=== PATIENT | female | born 1955 | race Caucasian/White ===

== ENCOUNTER 2017-03-23 19:22 | Inpatient (IN) | payer OTHER ==
[~2017-03-23] VITALS: Ht 160 cm; Wt 62.0 kg
[~2017-03-23 19:22] MED LIST: ACET1CAP19 PO; ACLI1AER3 INH; ALBU1AER9 INH; ALTERIL PO; ASPI81TA28 PO; CALC500C70 PO; CLID5CAP23 PO; CRS20 PO; CYCL5TAB PO; DIPH-416 PO; DIPH1TAB98 PO; FAMO20TA11 PO; IMD/2 PO; METO25TA56 PO; MISCCAP80 PO; NRT/25 PO; OXGN; SOLI5TAB2 PO; SYMIN/8045 INH; ZLF/50 PO
[2017-03-23] MEDS ORDERED: SODIUM CHLORIDE 0.9% 1000ML 1,000 ML IV STA ×2 (19:45)
[2017-03-23] MEDS ORDERED: SERT25TA PO (20:06)
[2017-03-23] MEDS ORDERED: SODIUM CHLORIDE 0.9% 500ML 500 ML IV STA (20:13)
[2017-03-23] MEDS ORDERED: ALBU18002 INH (20:19)
[2017-03-23 20:22] LABS: BASO % 0.4 %; BASO ABS # 0.04 K/uL (0-0.2); COMPLETE YES; EOS % 3.1 %; HEMATOCRIT 42.3 % (37-47); IG% 0.2 %; LYMPH % 16.4 %; LYMPH ABS # 1.87 K/uL (1.2-3.4); MEAN CELL VOLUME 93.6 fL (80-100); MEAN CORPUSCULAR HGB CONC 33.1 g/dl (32-36); MEAN PLATELET VOLUME 10.5 fL (7.4-10.4); MONO % 6.9 %; PLATELET COUNT 217 K/uL (130-400); RED BLOOD COUNT 4.52 M/uL (4.2-5.4)
[2017-03-23 20:31] LABS: PROTHROMBIN TIME (PATIENT) 10.5 SECONDS (9.0-12.0)
--- NOTE | 2017-03-23 20:48 | DIAGNOSTIC IMAGING REPORT ---
RIGHT KNEE 1 OR 2 VIEWS ROUTINE CLINICAL HISTORY: Right knee pain following fall. COMPARISON: None FINDINGS: A moderate size right knee joint effusion is present. A lucency projects over the patella. This may reflect a nondisplaced patellar fracture. No additional fractures are identified. IMPRESSION: Moderate size right knee joint effusion with probable acute nondisplaced patellar fracture. Electronically signed by: Jimy Osei M.D. 03/23/2017 8:46 PM Dictated Date/Time: 03/23/2017 8:42 PM
--- NOTE | 2017-03-23 20:50 | DIAGNOSTIC IMAGING REPORT ---
CHEST ONE VIEW PORTABLE CLINICAL HISTORY: Weakness. Fall. COMPARISON STUDY: Chest radiograph August 03, [address] January 13, 2016. FINDINGS: There is no pneumothorax or pleural effusion. Cardiomediastinal silhouette is stable. Lower lung opacity with interstitial thickening is noted. Diffuse interstitial thickening within the lungs has been shown on prior exams. There is no lobar consolidation. IMPRESSION: No significant change in diffuse interstitial thickening which is likely chronic. No change in appearance of the chest. Electronically signed by: Jimy Osei M.D. 03/23/2017 8:49 PM Dictated Date/Time: 03/23/2017 8:47 PM
[2017-03-23 21:13] LABS: ALKALINE PHOSPHATASE 98 U/L (45-117); ALT/SGPT 14 U/L (12-78); AST/SGOT 24 U/L (15-37); BLOOD UREA NITROGEN 10 mg/dl (7-18); BUN/CREATININE RATIO 12.5 (10-20); CALCIUM 9.4 mg/dl (8.5-10.1); CARBON DIOXIDE 30 mmol/L (21-32); CHLORIDE 102 mmol/L (98-107); CKMB/CK RATIO 1.1 (0-3.0); CREATININE 0.79 mg/dl (0.60-1.20); GLUCOSE 92 mg/dl (70-99); MAGNESIUM 2.2 mg/dl (1.8-2.4); POTASSIUM 4.6 mmol/L (3.5-5.1); SODIUM 137 mmol/L (136-145)
--- NOTE | 2017-03-23 21:27 | DIAGNOSTIC IMAGING REPORT ---
CT OF THE HEAD WITHOUT CONTRAST CLINICAL HISTORY: Weakness. Multiple falls. COMPARISON STUDY: Head CT September 07, 2012 and MRI of the brain September 08, 2012. CT DOSE: 614.27 mGy.cm TECHNIQUE: Helical axial images of the head were obtained without IV contrast. Automated exposure control was utilized for the study. FINDINGS: No acute intracranial hemorrhage, midline shift or mass effect is present. Postoperative findings consistent with a suboccipital craniectomy are again noted. Marked dilatation of the lateral and third ventricles is similar to prior exams. An old left parietal infarct is noted. There is also encephalomalacia within the left frontal lobe. There are no findings to suggest acute dural sinus thrombosis or acute territorial infarct. There is no calvarial fracture. IMPRESSION: No acute intracranial findings. No significant change in appearance of the brain. Stable marked dilatation of the lateral and third ventricles consistent with hydrocephalus. Electronically signed by: Jimy Osei M.D. 03/23/2017 9:25 PM Dictated Date/Time: 03/23/2017 9:19 PM
[2017-03-23 21:46] LABS: URINE APPEARANCE CLEAR (CLEAR); URINE BILIRUBIN NEG (NEG); URINE COLOR YELLOW; URINE EPITHELIAL CELL AUTO >30 /lpf (0-5); URINE NITRITE POS (NEG); URINE PH 6.5 (4.5-7.5); UROBILINOGEN NEG (NEG)
[2017-03-23 21:47] LABS: MANUAL MICROSCOPIC REQUIRED? NO; REVIEW REQ? NO
[2017-03-23] MEDS ORDERED: CEFTRIAXONE SOD INJ 1 GM ADDVIAL IV STA (22:30)
[2017-03-23] MEDS ORDERED: HYDROCODONE/ACETAMOPHEN 5/325MG TAB PO STA (22:37)
[2017-03-23 23:49] LABS: ARTERIAL BLD GAS O2 SATURATION 91.1 % (90-95); ARTERIAL BLOOD GAS HCO3 28 mmol/L (19-24); ARTERIAL BLOOD GAS PO2 62 mm/Hg (80-95); ARTERIAL BLOOD GAS pH 7.41 (7.35-7.45)
[2017-03-23 23:56] LABS: ALLEN TEST POS (POS); O2 ADMINISTRATION 4 L
[2017-03-24] MEDS ORDERED: LORAZEPAM 0.5 MG TAB PO ONE (00:30)
[2017-03-24] MEDS ORDERED: ONDANSETRON INJ 2 MG/ML 2 ML VIAL IV PRN (00:30)
[2017-03-24] MEDS ORDERED: LEVALBUTEROL/IPRATROPIUM NEB INH PRN (00:30)
[2017-03-24] MEDS ORDERED: MoRPHine SULFATE 4 MG/ML 1 ML CARP\\VIAL IV PRN (00:30)
[2017-03-24] MEDS ORDERED: SODIUM CHLORIDE 0.9% 1000ML 1,000 ML IV ONE (00:30)
[2017-03-24] MEDS ORDERED: ACETAMINOPHEN 325 MG TAB PO PRN (00:30)
[2017-03-24] MEDS ORDERED: LEVALBUTEROL 1.25MG/0.5ML NEB INH PRN (01:30)
[2017-03-24] MEDS ORDERED: IPRATROPIUM BROMIDE NEB SOLN 0.02% 2.5 ML VIAL INH PRN (01:30)
[2017-03-24 01:44] VITALS: BP 144/88; PULSE 84; TEMP 36.8; Ht 160 cm; Wt 62.0 kg
[2017-03-24 01:53] VITALS: O2SAT 93
--- NOTE | 2017-03-24 02:05 | EMERGENCY ROOM VISIT NOTE ---
History Report prepared by Sary: Rashid Willingham Under the Supervision of: Dr. Serafin Dumont M.D. First contact with patient: 19:45 Chief Complaint: FALL Stated Complaint: FALLS, KNEE PAIN History of Present Illness The patient is a 61 year old female who presents to the Emergency Room with complaints of constant right knee pain beginning this morning. The patient states that this morning her knee gave out 3 times, and she fell. She reports that she has been feeling weak, short of breath, diaphoresis, edema in her right foot, and fatigue. The patient notes that she fell 8 weeks ago and fractured her left hand. She states that she typically uses a walker to ambulate on her own. The patient reports that she was going up the steps outside her house, and her knee gave out. She notes that she then fell again getting into the door, and again after she was through the door. Her states he called a neighbor to help him lift the patient up, and he called the ambulance. He notes that the other night the patient went to use the restroom, and she completely missed the toilet, even though she thought she was on the seat. The patient states that she has not talked to her PCP yet. She reports that she has a history of IBS. The patient denies history of [place], coronary artery disease, and lung problems. Pt denies LOC, headache, fevers, chills, visual changes, neck pain, chest pain, nausea, vomiting, abdominal pain, back pain, melena, hematochezia, urinary symptoms, numbness, lymphadenopathy, rash, or other complaints. Source of History: patient, family Onset: this morning Position: knee (right) Timing: constant Associated Symptoms: + diaphoresis, + SOB, + fatigue, + weakness Note: Associated symptoms: edema in her right foot Review of Systems See HPI for pertinent positives and negatives. A total of ten systems were reviewed and were otherwise negative. Past Medical & Surgical Medical Problems: (1) Anxiety (2) Chronic diarrhea (3) Chronic obstructive lung disease (4) Complicated UTI (urinary tract infection) (5) Depression (6) Dyslipidemia (7) Essential hypertension (8) H/O multiple pulmonary nodules (9) History of CVA (cerebrovascular accident) (10) Irritable colon (11) Migraine (12) Pulmonary fibrosis (13) Respiratory failure, [id number] (14) Spina bifida (15) Tobacco user (16) Urge incontinence Surgical Problems: (1) History of cataract extraction with lens replacement (2) S/P cardiac cath (3) s/p hysterectomy Family History Cancer BROTHER (lung CA) Social History Smoking Status: Former Smoker Alcohol Use: none Marital Status: Occupation Status: employed Current/Historical Medications Scheduled Tfskxsshbswjb-Foahiwvhvfouq-Fl (Isometheptene/Dichloralph 325-65-100 mg), 1 CAP PO PRN UD Aclidinium Gilmore (Tudorza Pressair), 1 PUFF INH BID Aspirin (Aspirin Ec), 81 MG PO DAILY Budesonide/Formoterol Fumarate (Symbicort 80/4.5 Inhaler), 2 PUFFS INH BID Calcium/Vitamin D (Os-Harman 500 Plus D), 1 TAB PO BID Chlordiazepoxide/Clidinium (Librax 5MG/2.5MG), 1 EA PO DAILY Famotidine (Pepcid), 20 MG PO QPM Home O2 Therapy (Oxygen), 3 LITERS NA PRN Loperamide Hcl (Imodium), 2 MG PO UD Metoprolol Tartrate (Lopressor) (Lopressor), 25 MG PO BID Nortriptyline Hcl (Pamelor), 25 MG PO QAM Probiotic Product (Probiotic), 1 CAP PO DAILY Rosuvastatin Calcium (Crestor), 20 MG PO QPM Sertraline (Zoloft), 25 MG PO DAILY Sertraline HCl (Sertraline HCl), 50 MG PO QPM Solifenacin Succinate (Vesicare), 5 MG PO QAM [Alteril], 0.5 CAP PO HS Scheduled PRN Albuterol Sulfate (Proair Respiclick), 2 PUFFS INH Q4H PRN for SOB/Wheezing Cyclobenzaprine Hcl (Flexeril), 5 MG PO TID PRN for Muscle Spasms Diphenoxylate/Atropine (Lomotil), 1 TAB PO BID PRN for Diarrhea Allergies Coded Allergies: NO KNOWN DRUG ALLERGIES (Verified Allergy, Mild, NKDA, 03/23/17) Blessing Oil (Verified Adverse Reaction, Unknown, GI UPSET, 04/07/16) Milk (Verified Adverse Reaction, Unknown, GI UPSET, 04/07/16) Physical Exam Vital Signs Date Time Temp Pulse Resp B/P (MAP) Pulse Ox O2 Delivery O2 Flow Rate FiO2 03/23/17 23:36 82 03/23/17 22:49 82 16 171/92 95 Nasal Cannula 4.0 03/23/17 21:53 81 180/97 97 Nasal Cannula 4.0 03/23/17 21:21 92 24 206/99 91 Nasal Cannula 4.0 03/23/17 19:55 Nasal Cannula 4.0 03/23/17 19:38 87 03/23/17 19:27 37.4 98 16 179/112 80 Room Air Physical Exam GENERAL: Awake, alert, well-appearing, in no distress HENT: Normocephalic, atraumatic. Oropharynx unremarkable. Dry mucus membranes. EYES: Pale conjunctiva. Sclera non-icteric. NECK: Supple. No nuchal rigidity. FROM. No JVD. RESPIRATORY: Clear to auscultation. CARDIAC: Regular rate, normal rhythm. Extremities warm and well perfused. Pulses equal. ABDOMEN: Soft, non-distended. No tenderness to palpation. No rebound or guarding. No masses. RECTAL: Deferred. MUSCULOSKELETAL: Chest examination reveals no tenderness. The back is symmetrical on inspection without obvious abnormality. There is no CVA tenderness to palpation. No joint edema. Clubbing of the fingers. LOWER EXTREMITIES: Calves are equal size bilaterally and non-tender. 2+ edema, more on the left. No discoloration. Right knee effusion - posterior is tender to palpation - ROM limited secondary to pain NEURO: Normal sensorium. No sensory or motor deficits noted. SKIN: No rash or jaundice noted. Medical Decision & Procedures ER Provider Diagnostic Interpretation: Radiology results as stated below per my review and radiologist interpretation: CT OF THE HEAD WITHOUT CONTRAST CLINICAL HISTORY: Weakness. Multiple falls. COMPARISON STUDY: Head CT September 07, 2012 and MRI of the brain September 08, 2012. CT DOSE: 614.27 mGy.cm TECHNIQUE: Helical axial images of the head were obtained without IV contrast. Automated exposure control was utilized for the study. FINDINGS: No acute intracranial hemorrhage, midline shift or mass effect is present. Postoperative findings consistent with a suboccipital craniectomy are again noted. Marked dilatation of the lateral and third ventricles is similar to prior exams. An old left parietal infarct is noted. There is also encephalomalacia within the left frontal lobe. There are no findings to suggest acute dural sinus thrombosis or acute territorial infarct. There is no calvarial fracture. IMPRESSION: No acute intracranial findings. No significant change in appearance of the brain. Stable marked dilatation of the lateral and third ventricles consistent with hydrocephalus. Electronically signed by: Jimy Osei M.D. 03/23/2017 9:25 PM Dictated Date/Time: 03/23/2017 9:19 PM CHEST ONE VIEW PORTABLE CLINICAL HISTORY: Weakness. Fall. COMPARISON STUDY: Chest radiograph August 03, [address] January 13, 2016. FINDINGS: There is no pneumothorax or pleural effusion. Cardiomediastinal silhouette is stable. Lower lung opacity with interstitial thickening is noted. Diffuse interstitial thickening within the lungs has been shown on prior exams. There is no lobar consolidation. IMPRESSION: No significant change in diffuse interstitial thickening which is likely chronic. No change in appearance of the chest. Electronically signed by: Jimy Osei M.D. 03/23/2017 8:49 PM Dictated Date/Time: 03/23/2017 8:47 PM RIGHT KNEE 1 OR 2 VIEWS ROUTINE CLINICAL HISTORY: Right knee pain following fall. COMPARISON: None FINDINGS: A moderate size right knee joint effusion is present. A lucency projects over the patella. This may reflect a nondisplaced patellar fracture. No additional fractures are identified. IMPRESSION: Moderate size right knee joint effusion with probable acute nondisplaced patellar fracture. Electronically signed by: Jimy Osei M.D. 03/23/2017 8:46 PM Dictated Date/Time: 03/23/2017 8:42 PM Laboratory Results 03/23/17 20:05 Red Blood Count 4.52, Mean Corpuscular Volume 93.6, Mean Corpuscular Hemoglobin 31.0, Mean Corpuscular Hemoglobin Concent 33.1, Mean Platelet Volume 10.5, Neutrophils (%) (Auto) 73.0, Lymphocytes (%) (Auto) 16.4, Monocytes (%) (Auto) 6.9, Eosinophils (%) (Auto) 3.1, Basophils (%) (Auto) 0.4, Neutrophils # (Auto) 8.33, Lymphocytes # (Auto) 1.87, Monocytes # (Auto) 0.79, Eosinophils # (Auto) 0.35, Basophils # (Auto) 0.04 03/23/17 20:05 Test 03/23/17 20:05 03/23/17 20:09 03/23/17 20:48 03/23/17 21:30 White Blood Count 11.40 K/uL (4.8-10.8) Red Blood Count 4.52 M/uL (4.2-5.4) Hemoglobin 14.0 g/dL (12.0-16.0) Hematocrit 42.3 % (37-47) Mean Corpuscular Volume 93.6 fL (80-100) Mean Corpuscular Hemoglobin 31.0 pg (25-34) Mean Corpuscular Hemoglobin Concent 33.1 g/dl (32-36) Platelet Count 217 K/uL (130-400) Mean Platelet Volume 10.5 fL (7.4-10.4) Neutrophils (%) (Auto) 73.0 % Lymphocytes (%) (Auto) 16.4 % Monocytes (%) (Auto) 6.9 % Eosinophils (%) (Auto) 3.1 % Basophils (%) (Auto) 0.4 % Neutrophils # (Auto) 8.33 K/uL (1.4-6.5) Lymphocytes # (Auto) 1.87 K/uL (1.2-3.4) Monocytes # (Auto) 0.79 K/uL (0.11-0.59) Eosinophils # (Auto) 0.35 K/uL (0-0.5) Basophils # (Auto) 0.04 K/uL (0-0.2) RDW Standard Deviation 48.4 fL (36.4-46.3) RDW Coefficient of Variation 14.2 % (11.5-14.5) Immature Granulocyte % (Auto) 0.2 % Immature Granulocyte # (Auto) 0.02 K/uL (0.00-0.02) Prothrombin Time 10.5 SECONDS (9.0-12.0) Prothromb Time International Ratio 1.0 (0.9-1.1) Activated Partial Thromboplast Time 26.7 SECONDS (21.0-31.0) Partial Thromboplastin Ratio 1.0 Anion Gap 5.0 mmol/L (3-11) Est Creatinine Clear Calc Drug Dose 65.5 ml/min Estimated GFR () 93.0 Estimated GFR (Non- 80.2 BUN/Creatinine Ratio 12.5 (10-20) Calcium Level 9.4 mg/dl (8.5-10.1) Magnesium Level 2.2 mg/dl (1.8-2.4) Total Bilirubin 0.3 mg/dl (0.2-1) Direct Bilirubin mg/dl (0-0.2) Aspartate Amino Transf (AST/SGOT) 24 U/L (15-37) Alanine Aminotransferase (ALT/SGPT) 14 U/L (12-78) Alkaline Phosphatase 98 U/L (45-117) Total Creatine Kinase 390 U/L (26-192) Creatine Kinase MB 4.2 ng/ml (0.5-3.6) Creatine Kinase MB Ratio 1.1 (0-3.0) Troponin I < 0.015 ng/ml (0-0.045) Total Protein 8.1 gm/dl (6.4-8.2) Albumin 3.8 gm/dl (3.4-5.0) Lipase 92 U/L (73-393) Thyroid Stimulating Hormone (TSH) 1.400 uIu/ml (0.300-4.500) Chemistry Specimen Hemolysis Bedside Lactic Acid Venous 1.47 mmol/L (0.90-1.70) Pro-B-Type Natriuretic Peptide 360 pg/ml (0-900) Urine Color YELLOW Urine Appearance CLEAR (CLEAR) Urine pH 6.5 (4.5-7.5) Urine Specific [place] 1.010 (1.000-1.030) Urine Protein NEG (NEG) Urine Glucose (UA) NEG (NEG) Urine Ketones NEG (NEG) Urine Occult Blood 1+ (NEG) Urine Nitrite POS (NEG) Urine Bilirubin NEG (NEG) Urine Urobilinogen NEG (NEG) Urine Leukocyte Esterase MODERATE (NEG) Urine WBC (Auto) 10-30 /hpf (0-5) Urine RBC (Auto) 0-4 /hpf (0-4) Urine Hyaline Casts (Auto) 1-5 /lpf (0-5) Urine Epithelial Cells (Auto) >30 /lpf (0-5) Urine Bacteria (Auto) 4+ (NEG) Test 03/23/17 23:34 Arterial Blood pH 7.41 (7.35-7.45) Arterial Blood Partial Pressure CO2 45 mmHg (35-46) Arterial Blood Partial Pressure O2 62 mm/Hg (80-95) Arterial Blood HCO3 28 mmol/L (19-24) Arterial Blood Oxygen Saturation 91.1 % (90-95) Arterial Blood Base Excess 3.0 mEq/L (-9-1.8) Arterial Blood Gas Delivery 4 L Sharif Test POS (POS) Laboratory results reviewed by me Medications Administered Medications (Trade) Dose Ordered Sig/Bishnu Route Start Time Stop Time Status Last Admin Dose Admin Sodium Chloride 1,000 ml @ 125 mls/hr Q8H STAT IV 03/23/17 19:45 03/24/17 00:09 DC 03/23/17 22:48 125 MLS/HR Sodium Chloride 500 ml @ 999 mls/hr Q31M STAT IV 03/23/17 20:13 03/23/17 20:43 DC 03/23/17 20:13 999 MLS/HR Ceftriaxone Sodium (Rocephin Inj) 1 gm NOW STAT IV 03/23/17 22:30 03/23/17 22:32 DC 03/23/17 22:48 1 GM Acetaminophen/ Hydrocodone Bitart ([place] 5/325 Tab) 1 tab NOW STAT PO 03/23/17 22:37 03/23/17 22:39 DC 03/23/17 22:48 1 TAB ECG Indication: weakness Rate (beats per minute): 91 Findings: ST elevation (non-specific), no ectopy ED Course 2007: The patient was evaluated in room C04B. A complete history and physical exam was performed. 1944: Ordered Sodium Chloride 1000 ml @ 125 mls/hr IV, Sodium Chloride 1000 ml @ 999 mls/hr IV 2012: Ordered Sodium Chloride 500 ml @ 999 mls/hr IV 2229: Ordered Rocephin Inj 1gm IV 2236: Ordered Hydrocodone Bitart/Acetaminophen 1 tab PO 6: Upon reexamination, the patient was resting comfortably. I discussed the test results and treatment plan with her. 2250: I discussed the patient's case with Dr. Heaton, [facility] Hospitalist. The patient will be evaluated for further treatment. Medical Decision Medication Reconciliation: I attest that I have personally reviewed the patient' s current medication list Patient was found to have a slightly elevated blood pressure due to circumstances. I do not believe that the patient requires hypertension monitoring. Triage Nursing notes reviewed. The patient's presentation and history were concerning for fall, knee pain, and weakness Etiologies such as contusion, fracture, soft tissue injury, metabolic, infection , hypo/hyperglycemia, electrolyte abnormalities, cardiac sources, intracerebral event, toxicologic, neurologic, as well as others were entertained. The patient was evaluated. Clinically she is doing well although she was crying supplemental oxygen. She does have a history of lung disease. The patient is swollen and tender about the right knee. Blood work was obtained. Urinalysis obtained. Chest x-ray shows chronic changes. The patient had an x- ray of the right knee and this is concerning for patella fracture. She is placed in a knee immobilizer. She was given pain medication. The patient was gently hydrated. IV Rocephin was ordered as the patient appears to have a urinalysis consistent with a UTI. Results were discussed the patient and her significant other. Consultation was made with internal medicine. The patient was evaluated in the Emergency Room for further management. Consults Time Called: [phone] [facility] Returned Call: [phone] I discussed the patient's case with [facility] The patient will be evaluated for further treatment. Impression Primary Impression: Right patella fracture Additional Impressions: UTI (urinary tract infection) Weakness Fall Scribe Attestation The scribe's documentation has been prepared under my direction and personally reviewed by me in its entirety. I confirm that the note above accurately reflects all work, treatment, procedures, and medical decision making performed by me. Departure Information Dispostion Being Evaluated By Hospitalist Referrals Onel Conklin D.O. (PCP) Patient Instructions My [facility] Problem Qualifiers
--- NOTE | 2017-03-24 03:43 | History and Physical ---
History & Physical Date & Time of Service: Mar 24, 2017 at 03:42 Chief Complaint: falls, R knee pain Primary Care Physician: Onel Conklin D.OKiarra History of Present Illness Source: patient, partner, clinic records, hospital records In the last week, patient noted to be falling more than usual. Denies syncope chest pain shortness of breath. Right knee pain right right knee would give out. Patient also noted bladder discomfort. Usual diarrhea symptoms from irritable bowel. No fever or chills At the ER, patient given IV ceftriaxone for UTI. Past Medical/Surgical History Medical Problems: (1) Anxiety Status: Chronic (2) Chronic diarrhea Status: Chronic (3) Chronic obstructive lung disease Status: Chronic (4) Depression Status: Chronic (5) Dyslipidemia Status: Chronic (6) Essential hypertension Status: Chronic (7) H/O multiple pulmonary nodules Status: Chronic (8) History of CVA (cerebrovascular accident) Status: Chronic (9) Irritable colon Status: Chronic (10) Migraine Status: Chronic (11) Pulmonary fibrosis Status: Chronic (12) Spina bifida Permanent Comment: s/p repair Status: Chronic (13) Tobacco user Status: Chronic (14) Urge incontinence Status: Chronic Surgical Problems: (1) History of cataract extraction with lens replacement Permanent Comment: ; 2012 Status: Resolved (2) S/P cardiac cath Permanent Comment: 1999- minor early atherosclerotic changes, no obstruction Status: Chronic (3) s/p hysterectomy Permanent Comment: 1991 Status: Resolved spina bifida surgery Family History Cancer BROTHER (lung CA) Social History Smoking Status: Current Every Day Smoker (E cigarette) Marital Status: Housing status: lives with family Occupational Status: employed, disabled Immunizations History of Influenza Vaccine: Yes Influenza Vaccine Date: Jul 12, 2012 History of Tetanus Vaccine?: Unknown History of Pneumococcal: Unknown Pneumococcal Date: February 04, 2008 History of Hepatitis B Vaccine: No Multi-Drug Resistant Organisms History of MDRO: No Allergies Coded Allergies: NO KNOWN DRUG ALLERGIES (Verified Allergy, Mild, NKDA, 03/23/17) [place] Oil (Verified Adverse Reaction, Unknown, GI UPSET, 04/07/16) Milk (Verified Adverse Reaction, Unknown, GI UPSET, 04/07/16) Home Medications Scheduled Ivhwpprhbnxjz-Dmufzqfpaltln-Fe (Isometheptene/Dichloralph 325-65-100 mg), 1 CAP PO PRN UD Aclidinium [place] (Tudorza Pressair), 1 PUFF INH BID Aspirin (Aspirin Ec), 81 MG PO DAILY Budesonide/Formoterol Fumarate (Symbicort 80/4.5 Inhaler), 2 PUFFS INH BID Calcium/Vitamin D (Os-[place] 500 Plus D), 1 TAB PO BID Chlordiazepoxide/Clidinium (Librax 5MG/2.5MG), 1 EA PO DAILY Famotidine (Pepcid), 20 MG PO QPM Home O2 Therapy (Oxygen), 3 LITERS NA PRN Loperamide Hcl (Imodium), 2 MG PO UD Metoprolol Tartrate (Lopressor) (Lopressor), 25 MG PO BID Nortriptyline Hcl (Pamelor), 25 MG PO QAM Probiotic Product (Probiotic), 1 CAP PO DAILY Rosuvastatin Calcium (Crestor), 20 MG PO QPM Sertraline (Zoloft), 25 MG PO DAILY Sertraline HCl (Sertraline HCl), 50 MG PO QPM Solifenacin Succinate (Vesicare), 5 MG PO QAM [Alteril], 0.5 CAP PO HS Scheduled PRN Albuterol Sulfate (Proair Respiclick), 2 PUFFS INH Q4H PRN for SOB/Wheezing Cyclobenzaprine Hcl (Flexeril), 5 MG PO TID PRN for Muscle Spasms Diphenoxylate/Atropine (Lomotil), 1 TAB PO BID PRN for Diarrhea Review of Systems as per HPI, all other ROS negative Physical Exam Vital Signs Date Time Temp Pulse Resp B/P (MAP) Pulse Ox O2 Delivery O2 Flow Rate FiO2 03/24/17 01:53 93 Nasal Cannula 4.0 03/24/17 01:44 36.8 84 18 144/88 03/24/17 00:22 36.9 83 22 164/103 94 03/23/17 23:36 82 03/23/17 22:49 82 16 171/92 95 Nasal Cannula 4.0 03/23/17 21:53 81 180/97 97 Nasal Cannula 4.0 03/23/17 21:21 92 24 206/99 91 Nasal Cannula 4.0 03/23/17 19:55 Nasal Cannula 4.0 03/23/17 19:38 87 03/23/17 19:27 37.4 98 16 179/112 80 Room Air General Appearance: + pertinent finding (unkempt, looks older than stated age) Head: + pertinent finding (old facial asymmetry) Neck: supple Respiratory/Chest: + decreased breath sounds Cardiovascular: regular rate, rhythm Abdomen/GI: soft Extremities/Musculoskelatal: + pertinent finding (immobilization right knee) Diagnostics Laboratory Results Results Past 24 Hours Test 03/23/17 20:05 03/23/17 20:09 03/23/17 20:48 03/23/17 21:30 Range/Units White Blood Count 11.40 4.8-10.8 K/uL Red Blood Count 4.52 4.2-5.4 M/uL Hemoglobin 14.0 12.0-16.0 g/dL Hematocrit 42.3 37-47 % Mean Corpuscular Volume 93.6 80-100 fL Mean Corpuscular Hemoglobin 31.0 25-34 pg Mean Corpuscular Hemoglobin Concent 33.1 32-36 g/dl Platelet Count 217 130-400 K/uL Mean Platelet Volume 10.5 7.4-10.4 fL Neutrophils (%) (Auto) 73.0 % Lymphocytes (%) (Auto) 16.4 % Monocytes (%) (Auto) 6.9 % Eosinophils (%) (Auto) 3.1 % Basophils (%) (Auto) 0.4 % Neutrophils # (Auto) 8.33 1.4-6.5 K/uL Lymphocytes # (Auto) 1.87 1.2-3.4 K/uL Monocytes # (Auto) 0.79 0.11-0.59 K/uL Eosinophils # (Auto) 0.35 0-0.5 K/uL Basophils # (Auto) 0.04 0-0.2 K/uL RDW Standard Deviation 48.4 36.4-46.3 fL RDW Coefficient of Variation 14.2 11.5-14.5 % Immature Granulocyte % (Auto) 0.2 % Immature Granulocyte # (Auto) 0.02 0.00-0.02 K/uL Prothrombin Time 10.5 9.0-12.0 SECONDS Prothromb Time International Ratio 1.0 0.9-1.1 Activated Partial Thromboplast Time 26.7 21.0-31.0 SECONDS Partial Thromboplastin Ratio 1.0 Sodium Level 137 136-145 mmol/L Potassium Level 4.6 3.5-5.1 mmol/L Chloride Level 102 98-107 mmol/L Carbon Dioxide Level 30 21-32 mmol/L Anion Gap 5.0 3-11 mmol/L Blood Urea Nitrogen 10 7-18 mg/dl Creatinine 0.79 0.60-1.20 mg/dl Est Creatinine Clear Calc Drug Dose 65.5 ml/min Estimated GFR () 93.0 Estimated GFR (Non- 80.2 BUN/Creatinine Ratio 12.5 10-20 Random Glucose 92 70-99 mg/dl Calcium Level 9.4 8.5-10.1 mg/dl Magnesium Level 2.2 1.8-2.4 mg/dl Total Bilirubin 0.3 0.2-1 mg/dl Direct Bilirubin 0-0.2 mg/dl Aspartate Amino Transf (AST/SGOT) 24 15-37 U/L Alanine Aminotransferase (ALT/SGPT) 14 12-78 U/L Alkaline Phosphatase 98 45-117 U/L Total Creatine Kinase 390 26-192 U/L Creatine Kinase MB 4.2 0.5-3.6 ng/ml Creatine Kinase MB Ratio 1.1 0-3.0 Troponin I < 0.015 0-0.045 ng/ml Total Protein 8.1 6.4-8.2 gm/dl Albumin 3.8 3.4-5.0 gm/dl Lipase 92 73-393 U/L Thyroid Stimulating Hormone (TSH) 1.400 0.300-4.500 uIu/ml Chemistry Specimen Hemolysis Bedside Lactic Acid Venous 1.47 0.90-1.70 mmol/L Pro-B-Type Natriuretic Peptide 360 0-900 pg/ml Urine Color YELLOW Urine Appearance CLEAR CLEAR Urine pH 6.5 4.5-7.5 Urine Specific [place] 1.010 1.000-1.030 Urine Protein NEG NEG Urine Glucose (UA) NEG NEG Urine Ketones NEG NEG Urine Occult Blood 1+ NEG Urine Nitrite POS NEG Urine Bilirubin NEG NEG Urine Urobilinogen NEG NEG Urine Leukocyte Esterase MODERATE NEG Urine WBC (Auto) 10-30 0-5 /hpf Urine RBC (Auto) 0-4 0-4 /hpf Urine Hyaline Casts (Auto) 1-5 0-5 /lpf Urine Epithelial Cells (Auto) >30 0-5 /lpf Urine Bacteria (Auto) 4+ NEG Test 03/23/17 23:34 Range/Units Arterial Blood pH 7.41 7.35-7.45 Arterial Blood Partial Pressure CO2 45 35-46 mmHg Arterial Blood Partial Pressure O2 62 80-95 mm/Hg Arterial Blood HCO3 28 19-24 mmol/L Arterial Blood Oxygen Saturation 91.1 90-95 % Arterial Blood Base Excess 3.0 -9-1.8 mEq/L Arterial Blood Gas Delivery 4 L Sharif Test POS POS Microbiology Results 03/23/17 Blood Culture, Received Pending 03/23/17 Blood Culture, Received Pending 03/23/17 Urine Culture, Received Pending Diagnostic Radiology CT head no acute pathology Chest x-ray chronic interstitial thickening Right knee x-ray Moderate size right knee joint effusion with probable acute nondisplaced patellar fracture. Impression Assessment and Plan AP Complicated UTI History urge incontinence 2 to spina bifida No sepsis HTN, slightly elevated History CVA Chronic hypoxemic respiratory failure secondary to COPD/ILD on home O2 Pulmo-status at baseline as per patient px denies cp, sob sx albeit marked hypoxemia upon arrival at the ER Ongoing E cigarette use Recurrent falls, ambulatory dysfunction secondary to right knee swelling/ patellar fx history spina bifida status post surgery Chronic diarrhea history IBS Rule out C. difficile GMF Follow urine cultures, IV ceftriaxone for now Orthopedics consult RE right knee pain and swelling (patient known to Dr. Yadav) Stool C. 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 Y/N: Yes Risk Level: Moderate
[2017-03-24 06:04] LABS: BASO % 0.4 %; BASO ABS # 0.03 K/uL (0-0.2); COMPLETE YES; EOS % 4.7 %; HEMATOCRIT 36.7 % (37-47); IG% 0.1 %; LYMPH % 28.8 %; LYMPH ABS # 2.45 K/uL (1.2-3.4); MEAN CELL VOLUME 93.6 fL (80-100); MEAN CORPUSCULAR HEMOGLOBIN 30.6 pg (25-34); MEAN CORPUSCULAR HGB CONC 32.7 g/dl (32-36); MEAN PLATELET VOLUME 10.2 fL (7.4-10.4); MONO % 8.3 %; NEUT % 57.7 %; PLATELET COUNT 183 K/uL (130-400); RED BLOOD COUNT 3.92 M/uL (4.2-5.4); WHITE BLOOD COUNT 8.51 K/uL (4.8-10.8)
[2017-03-24 07:15] VITALS: BP 144/83; PULSE 83; TEMP 36.7; O2SAT 94
[2017-03-24] MEDS: TRAMADOL HCL 50 MG TAB PO PRN ×2 (08:55→18:13)
[2017-03-24] MEDS ORDERED: ACLIDINIUM BROMIDE INH SCH (09:00)
[2017-03-24] MEDS ORDERED: ETHYL CHLORIDE AER SPR 100 ML CAN EXT SCH (09:15)
[2017-03-24] MEDS: BUDESONIDE/FORMOTEROL FUMARATE 80/4.5 60 PUFFS/INHALER INH SCH ×2 (09:23→20:55)
[2017-03-24] MEDS: LACTOBACILLUS ACIDOPHILUS (FLORANEX) TAB PO SCH (09:23)
[2017-03-24] MEDS: ASPIRIN 81 MG ECTAB PO SCH (09:23)
[2017-03-24] MEDS: ENOXAPARIN 40 MG/0.4 ML SYR SQ SCH (09:24)
[2017-03-24] MEDS: NORTRIPTYLINE HCL 25 MG CAP PO SCH (09:24)
[2017-03-24] MEDS: SERTRALINE HCL 50 MG TAB PO SCH ×2 (09:24→20:56)
[2017-03-24] MEDS: METOPROLOL TARTRATE 25 MG TAB PO SCH ×2 (09:24→20:56)
[2017-03-24 16:02] VITALS: O2SAT 93
[2017-03-24 16:21] VITALS: BP 144/86; PULSE 88; TEMP 36.7; O2SAT 95
--- NOTE | 2017-03-24 17:45 | Orthopedic Progress Note ---
Orthopedic Progress Note Date of Service Mar 24, 2017. Subjective Additional Notes: Patient is a 61-year-old white female who was admitted for likely ambulatory dysfunction and a fall with question of right patellar fracture. Patient states that her knee tends to give out at times and she ended up falling. She denies any shortness of breath chest pain or lightheadedness prior to the fall. She denies loss of consciousness. Patient complains of right knee pain. We have been asked to see her for her right knee pain and question of patellar fracture. Objective On examination of her right lower extremity, a knee immobilizer is on the right lower extremity. This is removed. Examination of the right knee shows her to have a ldad-wv-[id number] effusion of the right knee. There is no erythema. She is not overtly warm to the touch compared to the left knee. She has pain mostly on palpation in the popliteal fossa. During palpation she states that some of the pain radiates down into her calf. Palpation of the patella finds her to be nontender. Palpation of her calf is nontender. She does have some decreased range of motion of her right ankle due to history of spina bifida per the patient. She is capable of full extension of the knee at this time. I am able to take her through gentle range of motion of the right knee with mild amount of pain in the posterior aspect of the knee itself. I can flex the knee to approximately 70-80 at this point in time without excruciating pain. I cannot appreciate any defects in her quadriceps tendon and she is capable of doing a straight leg raise with some help. Immobilizer was placed back on the patient. Date Time Temp Pulse Resp B/P (MAP) Pulse Ox O2 Delivery O2 Flow Rate FiO2 03/24/17 16:21 36.7 88 18 144/86 (105) 95 Nasal Cannula 6.0 03/24/17 10:49 Nasal Cannula 4.0 03/24/17 07:15 36.7 83 17 144/83 (103) 94 Nasal Cannula 4.0 03/24/17 01:53 93 Nasal Cannula 4.0 03/24/17 01:44 36.8 84 18 144/88 03/24/17 00:22 36.9 83 22 164/103 94 03/23/17 23:36 82 03/23/17 22:49 82 16 171/92 95 Nasal Cannula 4.0 03/23/17 21:53 81 180/97 97 Nasal Cannula 4.0 03/23/17 21:21 92 24 206/99 91 Nasal Cannula 4.0 03/23/17 19:55 Nasal Cannula 4.0 03/23/17 19:38 87 03/23/17 19:27 37.4 98 16 179/112 80 Room Air Laboratory Results 24 Hours: Test 03/23/17 20:05 03/24/17 05:49 White Blood Count 11.40 K/uL 8.51 K/uL Red Blood Count 4.52 M/uL 3.92 M/uL Hemoglobin 14.0 g/dL 12.0 g/dL Hematocrit 42.3 % 36.7 % Mean Corpuscular Volume 93.6 fL 93.6 fL Mean Corpuscular Hemoglobin 31.0 pg 30.6 pg Mean Corpuscular Hemoglobin Concent 33.1 g/dl 32.7 g/dl Platelet Count 217 K/uL 183 K/uL Mean Platelet Volume 10.5 fL 10.2 fL Neutrophils (%) (Auto) 73.0 % 57.7 % Lymphocytes (%) (Auto) 16.4 % 28.8 % Monocytes (%) (Auto) 6.9 % 8.3 % Eosinophils (%) (Auto) 3.1 % 4.7 % Basophils (%) (Auto) 0.4 % 0.4 % Neutrophils # (Auto) 8.33 K/uL 4.91 K/uL Lymphocytes # (Auto) 1.87 K/uL 2.45 K/uL Monocytes # (Auto) 0.79 K/uL 0.71 K/uL Eosinophils # (Auto) 0.35 K/uL 0.40 K/uL Basophils # (Auto) 0.04 K/uL 0.03 K/uL Prothromb Time International Ratio 1.0 Prothrombin Time 10.5 SECONDS Assessment & Plan Assessment: Painful right knee status post fall. Question of fracture nondisplaced on x-ray. Right knee effusion. Plan: X-rays have been reviewed and at this time with exam of the knee I don't believe her to have a patellar fracture. She does have an effusion which could be secondary to her knee giving out and or fall. She's been afebrile since her admission and white count was 11,000 and now down to 8000. I don't believe the need to be overtly infected. I will have Dr. Moya assess the knee today for full consult and order an aspiration kit to the bedside if he feels aspiration is warranted.
[2017-03-24] MEDS: FAMOTIDINE 20 MG TAB PO SCH (20:55)
[2017-03-24] MEDS: ROSUVASTATIN CALCIUM 20 MG TAB PO SCH (20:56)
--- NOTE | 2017-03-24 20:57 | Progress Note ---
Medicine Progress Note Date & Time of Visit: Mar 24, 2017 at 20:38. Subjective 61 yoF presents with multiple falls at home and weakness s/p R knee injury with possible patellar fracture. Weakness thought 2/2 UTI and she has had symptoms of dysuria for the past two weeks. -pt states she doesn't feel much better than when she came in but cannot tell exactly why -reports R knee pain and states knees have been "giving out" for a couple of months -reports dysuria and chills for the past two weeks. -denies blood in urine -tolerating PO Objective Last 8 Hrs Date Time Temp Pulse Resp B/P (MAP) Pulse Ox O2 Delivery O2 Flow Rate FiO2 03/24/17 16:21 36.7 88 18 144/86 (105) 95 Nasal Cannula 6.0 03/24/17 16:02 93 Nasal Cannula 5.0 Physical Exam: GEN: WNWD, in no acute distress, alert and appropriate HEENT: NC/AT, PERRL, normal sclerae, normal fundoscopic exam CARDIO: reg rate, S1/2 heard without m/g/r LUNGS: CTA bilaterally, no crackles, rales or wheezes, good diaphragmatic excursion ABD: soft, non-tender, non-distended, no rebound or guarding, +BS, no CVA tenderness EXTREMITY: RP and DP palpable 2+ bilat, no LE swelling or edema, extremities are warm and well-perfused REFER TO ORTHO NOTE FOR FULL KNEE EXAM NEURO: CN 2-12 grossly intact, sensation intact throughout MUSC: 5/5 strength throughout, no focal deficits, limited exam with knee immobilizer in place SKIN: warm and dry Laboratory Results: 03/24/17 05:49 Red Blood Count 3.92, Mean Corpuscular Volume 93.6, Mean Corpuscular Hemoglobin 30.6, Mean Corpuscular Hemoglobin Concent 32.7, Mean Platelet Volume 10.2, Neutrophils (%) (Auto) 57.7, Lymphocytes (%) (Auto) 28.8, Monocytes (%) (Auto) 8.3, Eosinophils (%) (Auto) 4.7, Basophils (%) (Auto) 0.4, Neutrophils # (Auto) 4.91, Lymphocytes # (Auto) 2.45, Monocytes # (Auto) 0.71, Eosinophils # (Auto) 0.40, Basophils # (Auto) 0.03 03/23/17 20:05 Test 03/23/17 20:05 03/23/17 20:09 03/23/17 20:48 03/23/17 21:30 Prothrombin Time 10.5 SECONDS (9.0-12.0) Prothromb Time International Ratio 1.0 (0.9-1.1) Activated Partial Thromboplast Time 26.7 SECONDS (21.0-31.0) Partial Thromboplastin Ratio 1.0 Anion Gap 5.0 mmol/L (3-11) Est Creatinine Clear Calc Drug Dose 65.5 ml/min Estimated GFR () 93.0 Estimated GFR (Non- 80.2 BUN/Creatinine Ratio 12.5 (10-20) Calcium Level 9.4 mg/dl (8.5-10.1) Magnesium Level 2.2 mg/dl (1.8-2.4) Total Bilirubin 0.3 mg/dl (0.2-1) Direct Bilirubin mg/dl (0-0.2) Aspartate Amino Transf (AST/SGOT) 24 U/L (15-37) Alanine Aminotransferase (ALT/SGPT) 14 U/L (12-78) Alkaline Phosphatase 98 U/L (45-117) Creatine Kinase MB 4.2 ng/ml (0.5-3.6) Creatine Kinase MB Ratio 1.1 (0-3.0) Troponin I < 0.015 ng/ml (0-0.045) Total Protein 8.1 gm/dl (6.4-8.2) Albumin 3.8 gm/dl (3.4-5.0) Lipase 92 U/L (73-393) Thyroid Stimulating Hormone (TSH) 1.400 uIu/ml (0.300-4.500) Chemistry Specimen Hemolysis Bedside Lactic Acid Venous 1.47 mmol/L (0.90-1.70) Pro-B-Type Natriuretic Peptide 360 pg/ml (0-900) Urine Color YELLOW Urine Appearance CLEAR (CLEAR) Urine pH 6.5 (4.5-7.5) Urine Specific [place] 1.010 (1.000-1.030) Urine Protein NEG (NEG) Urine Glucose (UA) NEG (NEG) Urine Ketones NEG (NEG) Urine Occult Blood 1+ (NEG) Urine Nitrite POS (NEG) Urine Bilirubin NEG (NEG) Urine Urobilinogen NEG (NEG) Urine Leukocyte Esterase MODERATE (NEG) Urine WBC (Auto) 10-30 /hpf (0-5) Urine RBC (Auto) 0-4 /hpf (0-4) Urine Hyaline Casts (Auto) 1-5 /lpf (0-5) Urine Epithelial Cells (Auto) >30 /lpf (0-5) Urine Bacteria (Auto) 4+ (NEG) Test 03/23/17 23:34 03/24/17 05:49 Arterial Blood pH 7.41 (7.35-7.45) Arterial Blood Partial Pressure CO2 45 mmHg (35-46) Arterial Blood Partial Pressure O2 62 mm/Hg (80-95) Arterial Blood HCO3 28 mmol/L (19-24) Arterial Blood Oxygen Saturation 91.1 % (90-95) Arterial Blood Base Excess 3.0 mEq/L (-9-1.8) Arterial Blood Gas Delivery 4 L Sharif Test POS (POS) White Blood Count 8.51 K/uL (4.8-10.8) Red Blood Count 3.92 M/uL (4.2-5.4) Hemoglobin 12.0 g/dL (12.0-16.0) Hematocrit 36.7 % (37-47) Mean Corpuscular Volume 93.6 fL (80-100) Mean Corpuscular Hemoglobin 30.6 pg (25-34) Mean Corpuscular Hemoglobin Concent 32.7 g/dl (32-36) Platelet Count 183 K/uL (130-400) Mean Platelet Volume 10.2 fL (7.4-10.4) Neutrophils (%) (Auto) 57.7 % Lymphocytes (%) (Auto) 28.8 % Monocytes (%) (Auto) 8.3 % Eosinophils (%) (Auto) 4.7 % Basophils (%) (Auto) 0.4 % Neutrophils # (Auto) 4.91 K/uL (1.4-6.5) Lymphocytes # (Auto) 2.45 K/uL (1.2-3.4) Monocytes # (Auto) 0.71 K/uL (0.11-0.59) Eosinophils # (Auto) 0.40 K/uL (0-0.5) Basophils # (Auto) 0.03 K/uL (0-0.2) RDW Standard Deviation 48.8 fL (36.4-46.3) RDW Coefficient of Variation 14.4 % (11.5-14.5) Immature Granulocyte % (Auto) 0.1 % Immature Granulocyte # (Auto) 0.01 K/uL (0.00-0.02) Total Creatine Kinase 345 U/L (26-192) Date/Time Source Procedure Growth Status 03/23/17 20:48 Blood Blood Culture Pending Received 03/23/17 21:30 Urine,Catheterized Urine Culture - Preliminary Gram Negative Bacilli Resulted Last 24 Hours Test 03/23/17 20:48 03/23/17 21:30 03/23/17 23:34 03/24/17 05:49 Pro-B-Type Natriuretic Peptide 360 pg/ml Urine Color YELLOW Urine Appearance CLEAR Urine pH 6.5 Urine Specific [place] 1.010 Urine Protein NEG Urine Glucose (UA) NEG Urine Ketones NEG Urine Occult Blood 1+ Urine Nitrite POS Urine Bilirubin NEG Urine Urobilinogen NEG Urine Leukocyte Esterase MODERATE Urine WBC (Auto) 10-30 /hpf Urine RBC (Auto) 0-4 /hpf Urine Hyaline Casts (Auto) 1-5 /lpf Urine Epithelial Cells (Auto) >30 /lpf Urine Bacteria (Auto) 4+ Arterial Blood pH 7.41 Arterial Blood Partial Pressure CO2 45 mmHg Arterial Blood Partial Pressure O2 62 mm/Hg Arterial Blood HCO3 28 mmol/L Arterial Blood Oxygen Saturation 91.1 % Arterial Blood Base Excess 3.0 mEq/L Arterial Blood Gas Delivery 4 L Sharif Test POS White Blood Count 8.51 K/uL Red Blood Count 3.92 M/uL Hemoglobin 12.0 g/dL Hematocrit 36.7 % Mean Corpuscular Volume 93.6 fL Mean Corpuscular Hemoglobin 30.6 pg Mean Corpuscular Hemoglobin Concent 32.7 g/dl Platelet Count 183 K/uL Mean Platelet Volume 10.2 fL Neutrophils (%) (Auto) 57.7 % Lymphocytes (%) (Auto) 28.8 % Monocytes (%) (Auto) 8.3 % Eosinophils (%) (Auto) 4.7 % Basophils (%) (Auto) 0.4 % Neutrophils # (Auto) 4.91 K/uL Lymphocytes # (Auto) 2.45 K/uL Monocytes # (Auto) 0.71 K/uL Eosinophils # (Auto) 0.40 K/uL Basophils # (Auto) 0.03 K/uL RDW Standard Deviation 48.8 fL RDW Coefficient of Variation 14.4 % Immature Granulocyte % (Auto) 0.1 % Immature Granulocyte # (Auto) 0.01 K/uL Total Creatine Kinase 345 U/L Date/Time Source Procedure Growth Status 03/23/17 20:48 Blood Blood Culture Pending Received 03/23/17 21:30 Urine,Catheterized Urine Culture - Preliminary Gram Negative Bacilli Resulted Assessment & Plan 61 yoF presents with multiple falls at home and weakness s/p R knee injury with possible patellar fracture. Weakness thought 2/2 UTI and she has had symptoms of dysuria for the past two weeks. 1. Weakness and multiple falls poss 2/2 UTI--symptoms for two weeks. Covered empirically on Rocephin while awaiting Urine cultures. She is mentating normally. Denies any flank pain and no CVA tenderness on exam. She has had some chills for two weeks, however. Afebrile. Blood cultures pending. PT/OT to assess for safety 2. R knee effusion-wrapped in full leg knee immobilizer, see Ortho note for exam. They are not of opinion that a patellar fracture exists and no synovial fluid tap was felt to be warranted. 3. HTN- presented with hypertensive urgency. 4. h/o CVA 5. Chronic hypoxemic respiratory failure secondary to COPD/ILD on home O2: at baseline per patient, Ongoing E cigarette use 6. IBS-c-diff is pending but patient has not had BM since admission 7. Spina bifida DVT prophylaxis Lovenox subcutaneous Full code Dispo-needs acute inpatient rehab per PT evaluation DO Liliam Subramanian Hospitalist Consultants: Ortho Current Inpatient Medications: Current Inpatient Medications Medications (Trade) Dose Ordered Sig/Bishnu Route Start Time Stop Time Status Last Admin Dose Admin Enoxaparin Sodium (Lovenox Inj) 40 mg Q24H SQ 03/24/17 09:00 04/23/17 08:59 03/24/17 09:24 40 MG Acetaminophen (Tylenol Tab) 650 mg Q4H PRN PO 03/24/17 00:30 04/23/17 00:29 Ondansetron HCl (Zofran Inj) 4 mg Q6H PRN IV 03/24/17 00:30 04/23/17 00:29 Tramadol HCl (Ultram Tab) 25 mg Q6H PRN PO 03/24/17 00:30 04/23/17 00:29 03/24/17 18:13 25 MG Aspirin (Ecotrin Tab) 81 mg DAILY PO 03/24/17 09:00 04/23/17 08:59 03/24/17 09:23 81 MG Budesonide/ Formoterol Fumarate (Symbicort 80/ 4.5 Inh) 2 puffs BID INH 03/24/17 09:00 04/23/17 08:59 03/24/17 09:23 2 PUFFS Famotidine (Pepcid Tab) 20 mg QPM PO 03/24/17 21:00 04/23/17 20:59 Metoprolol Tartrate (Lopressor Tab) 25 mg BID PO 03/24/17 09:00 04/23/17 08:59 03/24/17 09:24 25 MG Nortriptyline HCl (Pamelor Cap) 25 mg QAM PO 03/24/17 09:00 04/23/17 08:59 03/24/17 09:24 25 MG Rosuvastatin Calcium (Crestor Tab) 20 mg QPM PO 03/24/17 21:00 04/23/17 20:59 Sertraline HCl (Zoloft Tab) 25 mg DAILY PO 03/24/17 09:00 04/23/17 08:59 03/24/17 09:24 25 MG Sertraline HCl (Zoloft Tab) 50 mg QPM PO 03/24/17 21:00 04/23/17 20:59 Lactobacillus Acidophilus (Floranex Tab) 4 tab DAILY PO 03/24/17 09:00 04/23/17 08:59 03/24/17 09:23 4 TAB Morphine Sulfate (MoRPHine SULFATE INJ) 4 mg Q6H PRN IV 03/24/17 00:30 04/07/17 00:29 Ceftriaxone Sodium 1 gm/ Dextrose 50 ml @ 100 mls/hr Q24H IV 03/24/17 22:00 04/02/17 21:59 Ipratropium [place] (Atrovent 0.02% 0.5MG/2.5ML Neb) 0.5 mg Q4H PRN INH 03/24/17 01:30 04/23/17 01:29 Levalbuterol (Xopenex 1.25MG/ 0.5ML Neb) 1.25 mg Q4H PRN INH 03/24/17 01:30 04/23/17 01:29 Miscellaneous Information (Order Awaiting Action) 1 ea QS N/A 03/24/17 08:00 04/23/17 07:59
--- NOTE | 2017-03-24 21:06 | Progress Note ---
Progress Note Date of Service Mar 24, 2017. Progress Note This is a consultation on Kami Maurer. She is a 61-year-old female seen in the request of Dr. Conklin and Dr. Ornelas. This pleasant 61-year-old female sustained a fall landing on her right knee. She had pain in the right knee and presented to [facility] for care and management. Orthopedics was counseled to to assess her right knee pain and swelling. She complains of no fevers or chills. She had no prior redness or swelling to the knee before her fall. No prior surgery to the right knee. She has had several falls over the last 6-12 months. She is currently under the care physician for fractures in her left hand and wrist. She is wearing a Velcro wrist brace and the left upper extremity. Past medical and surgical history: ORIF right wrist, closed treatment left hand and wrist fractures, please review the medical record for further details. Allergies no known drug allergies Medications: Medications were reviewed and on the chart. Social history: Patient is a [id number] history of tobacco use. She denies alcohol and drug use. She lives in her own home. Physical exam: This pleasant 61-year-old female lying supine in her hospital room bed. She was in no acute distress. She has a left upper extremity Velcro wrist brace in place. Examination of the right lower extremity demonstrates a knee immobilizer in acceptable position. Knee immobilizer was removed. The right knee was noted to have a moderate effusion. Skin is noted to be warm dry and intact. Dorsalis pedis and posterior tibial pulses were 2 out of 4 bilateral lower extremities. Capillary refill is brisk at 3 seconds. Passive range of motion of the right knee is 0-75 of flexion with discomfort at terminal flexion. She has diffuse tenderness to palpation around the anterior compartments of the knee. She has discomfort related to the effusion of her right knee. She also has point tenderness over the medial joint line as well as the inferior pole of the patella. She has discomfort with active straight leg raising. Pain is related to the patella, quadriceps tendon and patellar tendon. Patient also has tenderness to palpation in the posterior fossa of the knee. Anterior drawer and posterior drawer testing are negative. Inna's testing provided patient with discomfort both in varus and valgus. There is no palpable clicking noted. The patella tracks centrally. Radiographs reviewed: Osteopenia and mild varus alignment are noted. No obvious fractures. Questionable lucency distal half of the patella noted best on the lateral view. Soft tissue swelling and effusion are noted best on the lateral view. Laboratories reviewed Impression: Right knee contusion Right knee effusion Right knee pain Possible occult fracture right patella Recommendations: There is no obvious fracture and certainly no evidence of displacement of any fracture however question remains regarding possibility of occult fracture of the patella. She has an abundant effusion of the knee and discomfort with any active or passive range of motion. She'll continue with use of the knee immobilizer and ice to the right knee. I will order a CT scan of the right knee to rule out occult fracture. Limited weightbearing with the knee immobilizer if tolerated and approved by medical service. We'll reassess after CT scan. Thank you for the operative consult care of this patient. Sincerely Cam Moya D.O.
[2017-03-24] MEDS ORDERED: CEFTRIAXONE SOD INJ 1 GM in DEXTROSE 5% ADD-VANTAGE 50ML 50 ML IV SCH (22:00)
--- NOTE | 2017-03-24 22:21 | DIAGNOSTIC IMAGING REPORT ---
CT SCAN OF THE RIGHT KNEE WITHOUT IV CONTRAST CLINICAL HISTORY: Joint effusion. Knee pain. COMPARISON STUDY: Radiograph of the right knee dated 03/23/2017. TECHNIQUE: CT scan of the right knee is performed from the distal femur to the proximal tibia and fibula. Images reviewed in the axial, sagittal, and coronal planes. IV contrast was not administered for this examination. CT DOSE: 219.04 mGy.cm FINDINGS: The skeletal structures are osteopenic. No fracture is seen. There is only mild tricompartmental degenerative joint space narrowing. There are marginal osteophytes and tiny patellar enthesophytes. A moderate joint effusion is identified. Mild soft tissue edema is present around the knee. There is diffuse symmetric muscular atrophy. IMPRESSION: 1. Joint effusion with no fracture identified. The abnormality questioned by x-ray was likely artifactual. 2. Osteopenia and degenerative change as above. Electronically signed by: Greg Ronquillo M.D. 03/24/2017 10:19 PM Dictated Date/Time: 03/24/2017 10:15 PM
[2017-03-25] VITALS (12 sets, daily range): BP systolic 85–126; BP diastolic 58–80; PULSE 78–104; TEMP 36.7–37.2; O2SAT 87–94
[2017-03-25] MEDS: BUDESONIDE/FORMOTEROL FUMARATE 80/4.5 60 PUFFS/INHALER INH SCH ×2 (08:38→19:46)
[2017-03-25] MEDS: NORTRIPTYLINE HCL 25 MG CAP PO SCH (08:39)
[2017-03-25] MEDS: ASPIRIN 81 MG ECTAB PO SCH (08:40)
[2017-03-25] MEDS: SERTRALINE HCL 50 MG TAB PO SCH ×2 (08:40→19:46)
[2017-03-25] MEDS: ENOXAPARIN 40 MG/0.4 ML SYR SQ SCH (08:42)
[2017-03-25] MEDS: CIPROFLOXACIN 500 MG TAB PO SCH ×2 (08:50→19:47)
[2017-03-25] MEDS: LACTOBACILLUS ACIDOPHILUS (FLORANEX) TAB PO SCH (09:43)
[2017-03-25] MEDS: METOPROLOL TARTRATE 25 MG TAB PO SCH ×2 (09:44→19:47)
[2017-03-25] MEDS: TRAMADOL HCL 50 MG TAB PO PRN (13:04)
--- NOTE | 2017-03-25 14:21 | Orthopedic Progress Note ---
Orthopedic Progress Note Date of Service Mar 25, 2017. Subjective Reports: complaints (right knee pain and swelling), Denies: SOB, nausea / vomiting, calf pain Additional Notes: Pain unchanged compared to yesterday. No fever or chills Objective calves soft nontender, N/V intact, capillary refill less than 2 sec., A&O x3, toes mobile Right knee immobilizer in place. Moderate painful effusion right knee. PROM 0- 70 with pain. DNVSI Date Time Temp Pulse Resp B/P (MAP) Pulse Ox O2 Delivery O2 Flow Rate FiO2 03/25/17 09:42 91 109/68 (82) 03/25/17 09:30 91 Nasal Cannula 5.0 03/25/17 09:00 87 Nasal Cannula 4.0 03/25/17 08:40 94/62 (73) 03/25/17 08:00 Nasal Cannula 5.0 03/25/17 07:57 36.7 84 18 123/75 (91) 93 Nasal Cannula 5.0 03/25/17 00:31 37.1 78 18 123/80 (94) 92 Nasal Cannula 5.0 03/25/17 00:00 93 Nasal Cannula 5.0 03/24/17 16:21 36.7 88 18 144/86 (105) 95 Nasal Cannula 6.0 03/24/17 16:02 93 Nasal Cannula 5.0 Assessment & Plan Assessment: Right knee effusion.- CT negative for fracture R Knee DJD R Knee OA Plan: After obtained verbal consent from patient, Right knee sterile prep performed. Aspiration of 22cc serosanguinous fluid performed R knee. Sterile Band-Aid applied to R knee. Patient tolerated well. Knee immobilizer reapplied for comfort. Continue Ice to right knee. WBAT w/ brace as tolerated and w/ assist x1.
[2017-03-25] MEDS: ROSUVASTATIN CALCIUM 20 MG TAB PO SCH (19:46)
[2017-03-25] MEDS: FAMOTIDINE 20 MG TAB PO SCH (19:46)
[2017-03-25] MEDS ORDERED: KETOROLAC TROMETHAMINE 15 MG/ML VIAL IV. PRN (20:00)
[2017-03-25 20:26] LABS: BASO % 0.2 %; BASO ABS # 0.03 K/uL (0-0.2); COMPLETE YES; EOS % 3.4 %; HEMATOCRIT 35.4 % (37-47); IG% 0.2 %; MEAN CELL VOLUME 93.4 fL (80-100); MEAN CORPUSCULAR HEMOGLOBIN 31.7 pg (25-34); MEAN CORPUSCULAR HGB CONC 33.9 g/dl (32-36); MEAN PLATELET VOLUME 10.4 fL (7.4-10.4); MONO % 8.5 %; NEUT % 75.7 %; PLATELET COUNT 172 K/uL (130-400); RED BLOOD COUNT 3.79 M/uL (4.2-5.4); WHITE BLOOD COUNT 13.28 K/uL (4.8-10.8)
[2017-03-25 20:44] LABS: BUN/CREATININE RATIO 13.9 (10-20); CALCIUM 8.4 mg/dl (8.5-10.1); CREATININE 1.2 mg/dl (0.60-1.20); MAGNESIUM 1.9 mg/dl (1.8-2.4); POTASSIUM 4.2 mmol/L (3.5-5.1)
--- NOTE | 2017-03-25 20:49 | DIAGNOSTIC IMAGING REPORT ---
CHEST ONE VIEW PORTABLE CLINICAL HISTORY: Hypoxia. COMPARISON STUDY: Chest radiograph March 23, 2017. FINDINGS: There is no pneumothorax or pleural effusion. Diffuse interstitial thickening has slightly increased. Right mid lung airspace opacity has also developed. Mild elevation of the left hemidiaphragm is unchanged. There is suspected gaseous distention of the stomach. Cardiomediastinal silhouette is stable. IMPRESSION: Interval development of right midlung airspace opacity with increase in diffuse interstitial thickening. The findings could reflect pneumonia or pulmonary edema superimposed upon interstitial lung disease. Electronically signed by: Jimy Osei M.D. 03/25/2017 8:47 PM Dictated Date/Time: 03/25/2017 8:45 PM
[2017-03-25 21:02] LABS: ARTERIAL BLD GAS O2 SATURATION 86.2 % (90-95); ARTERIAL BLOOD GAS BASE EXCESS 2.5 mEq/L (-9-1.8); ARTERIAL BLOOD GAS HCO3 27 mmol/L (19-24); ARTERIAL BLOOD GAS PO2 51 mmHg (80-95); ARTERIAL BLOOD GAS pH 7.43 (7.35-7.45)
[2017-03-25 21:03] LABS: ALLEN TEST POS (POS); O2 ADMINISTRATION 6L O2
[2017-03-25] MEDS ORDERED: LEVALBUTEROL/IPRATROPIUM NEB INH STA (21:17)
[2017-03-25] MEDS ORDERED: GUAIFENESIN 600 MG TABCR PO ONE (21:19)
--- NOTE | 2017-03-25 21:19 | Progress Note ---
Internal Med Progress Note Date of Service: Mar 25, 2017. Provider Documentation: Made aware by RN around 7:40 PM low blood pressure 80s O2 sats 80s on on 4 L Earlier patient noted to be confused after 1 dose of morphine given. Patient denies chest pain or shortness of breath. Patient admits to new cough symptoms unable to expectorate. Admits to some coughing with meals if she is not careful. Chest x-ray showed interstitial congestion and right infiltrate AP Acute on chronic hypoxemic resp failure secondary to HAP possible aspiration ( hx CVA) Possible COPD/ILD exacerbation Possible sepsis Supplemental O2 Cultures, Zosyn (dc Cipro for UTI) Nebs stat, RTC, prn Solu-Medrol 1 dose for possible chronic lung disease exacerbation, may need additional steroids pending response Aspiration precautions for now swallow eval in a.m. Will relay developments to AM provider. Vital Signs: Date Time Temp Pulse Resp B/P (MAP) Pulse Ox O2 Delivery O2 Flow Rate FiO2 03/25/17 20:35 98 103/69 (80) 03/25/17 20:00 Nasal Cannula 6.0 03/25/17 19:51 85/58 (67) 03/25/17 16:00 Nasal Cannula 5.0 03/25/17 15:30 37.2 87 18 126/76 (93) 94 Nasal Cannula 5.0 03/25/17 09:42 91 109/68 (82) 03/25/17 09:30 91 Nasal Cannula 5.0 03/25/17 09:00 87 Nasal Cannula 4.0 03/25/17 08:40 94/62 (73) 03/25/17 08:00 Nasal Cannula 5.0 03/25/17 07:57 36.7 84 18 123/75 (91) 93 Nasal Cannula 5.0 03/25/17 00:31 37.1 78 18 123/80 (94) 92 Nasal Cannula 5.0 03/25/17 00:00 93 Nasal Cannula 5.0 Lab Results: Results Past 24 Hours Test 03/25/17 20:10 03/25/17 20:45 03/25/17 21:35 Range/Units White Blood Count 13.28 4.8-10.8 K/uL Red Blood Count 3.79 4.2-5.4 M/uL Hemoglobin 12.0 12.0-16.0 g/dL Hematocrit 35.4 37-47 % Mean Corpuscular Volume 93.4 80-100 fL Mean Corpuscular Hemoglobin 31.7 25-34 pg Mean Corpuscular Hemoglobin Concent 33.9 32-36 g/dl Platelet Count 172 130-400 K/uL Mean Platelet Volume 10.4 7.4-10.4 fL Neutrophils (%) (Auto) 75.7 % Lymphocytes (%) (Auto) 12.0 % Monocytes (%) (Auto) 8.5 % Eosinophils (%) (Auto) 3.4 % Basophils (%) (Auto) 0.2 % Neutrophils # (Auto) 10.04 1.4-6.5 K/uL Lymphocytes # (Auto) 1.60 1.2-3.4 K/uL Monocytes # (Auto) 1.13 0.11-0.59 K/uL Eosinophils # (Auto) 0.45 0-0.5 K/uL Basophils # (Auto) 0.03 0-0.2 K/uL RDW Standard Deviation 49.3 36.4-46.3 fL RDW Coefficient of Variation 14.4 11.5-14.5 % Immature Granulocyte % (Auto) 0.2 % Immature Granulocyte # (Auto) 0.03 0.00-0.02 K/uL Activated Partial Thromboplast Time 26.6 21.0-31.0 SECONDS Partial Thromboplastin Ratio 1.0 Sodium Level 133 136-145 mmol/L Potassium Level 4.2 3.5-5.1 mmol/L Chloride Level 99 98-107 mmol/L Carbon Dioxide Level 28 21-32 mmol/L Anion Gap 6.0 3-11 mmol/L Blood Urea Nitrogen 17 7-18 mg/dl Creatinine 1.20 0.60-1.20 mg/dl Est Creatinine Clear Calc Drug Dose 40.2 ml/min Estimated GFR () 56.1 Estimated GFR (Non- 48.4 BUN/Creatinine Ratio 13.9 10-20 Random Glucose 123 70-99 mg/dl Calcium Level 8.4 8.5-10.1 mg/dl Magnesium Level 1.9 1.8-2.4 mg/dl Total Creatine Kinase 233 26-192 U/L Pro-B-Type Natriuretic Peptide 972 0-900 pg/ml Arterial Blood pH 7.43 7.35-7.45 Arterial Blood Partial Pressure CO2 42 35-46 mmHg Arterial Blood Partial Pressure O2 51 80-95 mmHg Arterial Blood HCO3 27 19-24 mmol/L Arterial Blood Oxygen Saturation 86.2 90-95 % Arterial Blood Base Excess 2.5 -9-1.8 mEq/L Arterial Blood Gas Delivery 6L O2 Sharif Test POS POS Microbiology Results 03/25/17 Blood Culture, Received Pending 03/25/17 Blood Culture, Received Pending
[2017-03-25] MEDS ORDERED: SODIUM CHLORIDE 0.9% 1000ML 1,000 ML IV ONE (21:30)
[2017-03-25] MEDS ORDERED: LEVALBUTEROL 1.25MG/0.5ML NEB INH STA (21:34)
[2017-03-25] MEDS ORDERED: IPRATROPIUM BROMIDE NEB SOLN 0.02% 2.5 ML VIAL INH STA (21:34)
[2017-03-25] MEDS ORDERED: PIPERACILL/TAZOBAC CONSULT ACTIVE PRN (21:45)
[2017-03-25] MEDS ORDERED: PIPERACILLIN/TAZOBACTAM 4.5 GM/100ML D5W IV ONE (21:45)
[2017-03-25] MEDS ORDERED: METHYLPREDNISOLONE IV 20 MG in SYRINGE 0 ML IV ONE (22:00)
[2017-03-26] VITALS (9 sets, daily range): BP systolic 96–107; BP diastolic 60–71; PULSE 80–100; TEMP 36.5–36.7; O2SAT 90–93
[2017-03-26] MEDS: LEVALBUTEROL 1.25MG/0.5ML NEB INH SCH ×4 (01:58→19:28)
[2017-03-26] MEDS: IPRATROPIUM BROMIDE NEB SOLN 0.02% 2.5 ML VIAL INH SCH ×4 (01:58→19:28)
[2017-03-26] MEDS ORDERED: LEVALBUTEROL/IPRATROPIUM NEB INH SCH (03:00)
[2017-03-26] MEDS: PIPERACILL/TAZOBAC IV 3.375 GM in DEXTROSE 5% 100ML IV SCH ×3 (03:53→19:35)
[2017-03-26 07:28] LABS: BUN/CREATININE RATIO 16.5 (10-20); CALCIUM 8.3 mg/dl (8.5-10.1); CREATININE 0.75 mg/dl (0.60-1.20); POTASSIUM 4.1 mmol/L (3.5-5.1)
[2017-03-26] MEDS: ASPIRIN 81 MG ECTAB PO SCH (07:29)
[2017-03-26] MEDS: METOPROLOL TARTRATE 25 MG TAB PO SCH ×2 (07:30→19:35)
[2017-03-26] MEDS: BUDESONIDE 90 MCG INH INH SCH ×2 (07:31→19:42)
[2017-03-26] MEDS: GUAIFENESIN 600 MG TABCR PO SCH ×2 (07:33→19:35)
[2017-03-26] MEDS: NORTRIPTYLINE HCL 25 MG CAP PO SCH (07:34)
[2017-03-26] MEDS: SERTRALINE HCL 50 MG TAB PO SCH ×2 (07:34→19:35)
[2017-03-26] MEDS: ENOXAPARIN 40 MG/0.4 ML SYR SQ SCH (07:35)
[2017-03-26] MEDS: LACTOBACILLUS ACIDOPHILUS (FLORANEX) TAB PO SCH (07:48)
--- NOTE | 2017-03-26 08:50 | Progress Note ---
Medicine Progress Note Date & Time of Visit: Mar 25, 2017 at 07:29. 03/25/17 @ 1400 Subjective This note is written retrospectively, the patient was seen and examined at the time above. She reports doing well from a UTI standpoint and is tolerating PO, however, she reports not feeling much better since admission. She cannot put her finger on exactly why. She has been on 4-5 L O2 since admission. She reports some intermittent cough that is not a major issue for her (seems more sporadic; she didn't cough while I was in today or yesterday) and is non- productive. She has been on ceftriaxone empirically for UTI and denies further UTI symptoms but still doesn't feel much improved. Urine culture returned with Enterobacter that was syed-sensitive. She underwent a R knee aspiration today and is feeling fine from that. CT of her knee revealed no fracture. She reports not being up and out of bed today and we discussed how that was a good idea. She agreed to it; I spoke with her nurses who stated that she persistently declines their request to get out of bed. Objective Last 8 Hrs Date Time Temp Pulse Resp B/P (MAP) Pulse Ox O2 Delivery O2 Flow Rate FiO2 03/26/17 07:27 105/64 (78) 03/26/17 07:18 80 16 90 Nasal Cannula 6.0 03/26/17 01:58 88 16 91 Nasal Cannula 6.0 03/26/17 00:00 90 Nasal Cannula 6.0 Physical Exam: GEN: WNWD, in no acute distress, alert and appropriate HEENT: NC/AT, normal sclerae CARDIO: reg rate, S1/2 heard without m/g/r LUNGS: CTA bilaterally, no crackles, rales or wheezes, good diaphragmatic excursion ABD: soft, non-tender, non-distended, no rebound or guarding, +BS, no CVA tenderness EXTREMITY: RP and DP palpable 2+ bilat, no LE swelling or edema, extremities are warm and well-perfused REFER TO ORTHO NOTE FOR FULL KNEE EXAM NEURO: CN 2-12 grossly intact, sensation intact throughout MUSC: 5/5 strength throughout, no focal deficits, limited exam with knee immobilizer in place SKIN: warm and dry Laboratory Results: Last 24 Hours Test 03/25/17 20:10 03/25/17 20:45 03/25/17 21:35 03/26/17 06:19 White Blood Count 13.28 K/uL Red Blood Count 3.79 M/uL Hemoglobin 12.0 g/dL Hematocrit 35.4 % Mean Corpuscular Volume 93.4 fL Mean Corpuscular Hemoglobin 31.7 pg Mean Corpuscular Hemoglobin Concent 33.9 g/dl Platelet Count 172 K/uL Mean Platelet Volume 10.4 fL Neutrophils (%) (Auto) 75.7 % Lymphocytes (%) (Auto) 12.0 % Monocytes (%) (Auto) 8.5 % Eosinophils (%) (Auto) 3.4 % Basophils (%) (Auto) 0.2 % Neutrophils # (Auto) 10.04 K/uL Lymphocytes # (Auto) 1.60 K/uL Monocytes # (Auto) 1.13 K/uL Eosinophils # (Auto) 0.45 K/uL Basophils # (Auto) 0.03 K/uL RDW Standard Deviation 49.3 fL RDW Coefficient of Variation 14.4 % Immature Granulocyte % (Auto) 0.2 % Immature Granulocyte # (Auto) 0.03 K/uL Activated Partial Thromboplast Time 26.6 SECONDS Partial Thromboplastin Ratio 1.0 Sodium Level 133 mmol/L 135 mmol/L Potassium Level 4.2 mmol/L 4.1 mmol/L Chloride Level 99 mmol/L 102 mmol/L Carbon Dioxide Level 28 mmol/L 26 mmol/L Anion Gap 6.0 mmol/L 7.0 mmol/L Blood Urea Nitrogen 17 mg/dl 12 mg/dl Creatinine 1.20 mg/dl 0.75 mg/dl Est Creatinine Clear Calc Drug Dose 40.2 ml/min 64.3 ml/min Estimated GFR () 56.1 99.0 Estimated GFR (Non- 48.4 85.4 BUN/Creatinine Ratio 13.9 16.5 Random Glucose 123 mg/dl 165 mg/dl Calcium Level 8.4 mg/dl 8.3 mg/dl Magnesium Level 1.9 mg/dl Total Creatine Kinase 233 U/L Pro-B-Type Natriuretic Peptide 972 pg/ml Arterial Blood pH 7.43 Arterial Blood Partial Pressure CO2 42 mmHg Arterial Blood Partial Pressure O2 51 mmHg Arterial Blood HCO3 27 mmol/L Arterial Blood Oxygen Saturation 86.2 % Arterial Blood Base Excess 2.5 mEq/L Arterial Blood Gas Delivery 6L O2 Sharif Test POS Lactic Acid Level 1.1 mmol/L Date/Time Source Procedure Growth Status 7/1/17 21:35 Blood Blood Culture Pending Received 03/25/17 20:40 Blood Blood Culture Pending Received Assessment & Plan 61 yoF presents with multiple falls at home and weakness s/p R knee injury with effusion s/p aspiration. Weakness thought 2/2 UTI and she has had symptoms of dysuria for the past two weeks. Uncertain cause of persistent malaise, so will keep here and see if things improve. Encouraged her to get out of bed frequently with assist. 1. Weakness and multiple falls poss 2/2 UTI--symptoms for two weeks. Covered empirically on Rocephin while awaiting Urine cultures. She is mentating normally. Denies any flank pain and no CVA tenderness on exam. She has had some chills for two weeks, however. Afebrile. Blood cultures pending. PT/OT to assess for safety 2. R knee effusion-wrapped in full leg knee immobilizer, see Ortho note for exam. CT knee revealed no patellar fracture and Ortho tapped effusion. No serologic studies are pending. Pt is doing well post-procedure 3. HTN- presented with hypertensive urgency. Currently controlled. 4. h/o CVA-aspiration precautions. 5. Chronic hypoxemic respiratory failure secondary to COPD/ILD on home O2 3L PRN at baseline per patient, Ongoing E cigarette use. Pt not improved and uncertain cause for her persistent hypoxia with min cough that is not productive and clear CXR on admission. Will consult pulm for assistance. 6. IBS-c-diff is pending but patient has not had BM since admission 7. Spina bifida DVT prophylaxis Lovenox subcutaneous Full code Dispo-needs acute inpatient rehab per PT evaluation DO Liliam Subramanian Hospitalist Consultants: Ortho, Pulm Current Inpatient Medications: Current Inpatient Medications Medications (Trade) Dose Ordered Sig/Bishnu Route Start Time Stop Time Status Last Admin Dose Admin Enoxaparin Sodium (Lovenox Inj) 40 mg Q24H SQ 03/24/17 09:00 04/23/17 08:59 03/25/17 08:42 40 MG Acetaminophen (Tylenol Tab) 650 mg Q4H PRN PO 03/24/17 00:30 04/23/17 00:29 Ondansetron HCl (Zofran Inj) 4 mg Q6H PRN IV 03/24/17 00:30 04/23/17 00:29 Tramadol HCl (Ultram Tab) 25 mg Q6H PRN PO 03/24/17 00:30 04/23/17 00:29 03/25/17 13:04 25 MG Aspirin (Ecotrin Tab) 81 mg DAILY PO 03/24/17 09:00 04/23/17 08:59 03/25/17 08:40 81 MG Famotidine (Pepcid Tab) 20 mg QPM PO 03/24/17 21:00 04/23/17 20:59 03/25/17 19:46 20 MG Nortriptyline HCl (Pamelor Cap) 25 mg QAM PO 03/24/17 09:00 04/23/17 08:59 03/25/17 08:39 25 MG Rosuvastatin Calcium (Crestor Tab) 20 mg QPM PO 03/24/17 21:00 04/23/17 20:59 03/25/17 19:46 20 MG Sertraline HCl (Zoloft Tab) 25 mg DAILY PO 03/24/17 09:00 04/23/17 08:59 03/25/17 08:40 25 MG Sertraline HCl (Zoloft Tab) 50 mg QPM PO 03/24/17 21:00 04/23/17 20:59 03/25/17 19:46 50 MG Lactobacillus Acidophilus (Floranex Tab) 4 tab DAILY PO 03/24/17 09:00 04/23/17 08:59 03/25/17 09:43 4 TAB Ipratropium Paradox (Atrovent 0.02% 0.5MG/2.5ML Neb) 0.5 mg Q4H PRN INH 03/24/17 01:30 04/23/17 01:29 Levalbuterol (Xopenex 1.25MG/ 0.5ML Neb) 1.25 mg Q4H PRN INH 03/24/17 01:30 04/23/17 01:29 Miscellaneous Information (Order Awaiting Action) 1 ea QS N/A 03/24/17 08:00 04/23/17 07:59 Ketorolac Tromethamine (Toradol Inj) 15 mg Q6H PRN IV. 03/25/17 20:00 03/30/17 19:59 Metoprolol Tartrate (Lopressor Tab) 12.5 mg BID PO 03/26/17 09:00 04/23/17 08:59 Piperacillin Sod/ Tazobactam Sod (Consult) 1 ea UD PRN N/A 03/25/17 21:45 04/24/17 21:44 Guaifenesin (Mucinex Contr Rel Tab) 600 mg Q12 PO 03/26/17 09:00 04/25/17 08:59 Sodium Chloride 1,000 ml @ 80 mls/hr [id number] ONCE IV 03/25/17 21:30 03/26/17 09:59 03/25/17 21:53 80 MLS/HR Budesonide (Pulmicort Inhaler) 2 puffs BID INH 03/26/17 09:00 04/25/17 08:59 Ipratropium Paradox (Atrovent 0.02% 0.5MG/2.5ML Neb) 0.5 mg Q6R INH 03/26/17 03:00 04/25/17 02:59 03/26/17 07:18 0.5 MG Levalbuterol (Xopenex 1.25MG/ 0.5ML Neb) 1.25 mg Q6R INH 03/26/17 03:00 04/25/17 02:59 03/26/17 07:18 1.25 MG Piperacillin Sod/ Tazobactam Sod 3.375 gm/Dextrose 115 ml @ 28.75 mls/ hr Q8@0400,1200,2000 IV 03/26/17 04:00 04/02/17 03:59 03/26/17 03:53 28.75 MLS/HR
[2017-03-26] MEDS: CHLORDIAZEPOXIDE 5 MG CAP PO SCH (09:51)
[2017-03-26] MEDS: POLYETHYLENE (MIRALAX) 17 GM PACK PO SCH (11:36)
--- NOTE | 2017-03-26 11:44 | Pulmonary Consultation ---
History General Date of Service: Mar 26, 2017. Stated Complaint: Complicated Uti HPI The patient is a 61 year old female who presents to [facility] with complaints of Complicated Uti. The patient's primary care provider is Onel Conklin D.O.. Pulmonary consultation is requested regarding hypoxia. Mrs. Maurer was admitted on March 23 after coming to the emergency room with recurring falls and pain in the right knee. She had at least 3 separate falls. Her right knee seems to give way. She has had some knee swelling. Her right leg is intrinsically weak because of spina bifida. The patient denies shortness of breath to me. However the emergency room note indicates that she was complaining of some shortness of breath. The patient admits to having a cough. It is dry. She thinks she had a low-grade fever when she was admitted. She does not complain of sweats or chills. Yesterday she was noted to have some low blood pressure down into the 80s. Also her oxygen saturation yesterday was 80% on 4 L. The patient has a history of emphysema and COPD but also interstitial lung disease. She has previously seen Dr. Dave. However she has been somewhat noncompliant with many no-show appointments. In the hospital here nursing staff indicates that she is very reluctant to sit up and get out of bed etc. Her energy level is low. Her saturations have still been low despite now being on 6 L nasal cannula. Her chest x-ray done on admission showed diffuse interstitial disease which was chronic and unchanged from prior x-rays 1-2 years earlier. Follow-up x-ray however on March 25 showed evidence of a prominent infiltrate in the right mid to upper lung field. This reflects a change. At home the patient is on Symbicort and 2 daughters. I asked her if she takes her inhalers and she said when she remembers. She is getting some nebulizer treatments and here and she believes they are helping. Review of Systems Gen.: Energy level is very low. Neurologic: Chronic weakness in the right leg secondary to spina bifida. No syncope or near syncope. Ophthalmic: No visual complaints ENT: Denies nasal congestion or coryza Cardiac: No chest pain or palpitations Pulmonary: As noted in history of present illness GI: The patient has both constipation and diarrhea which she attributes to irritable bowel syndrome. the patient does have urinary incontinence. She does not complain of urinary burning or frequency. Musculoskeletal pain in the right knee and decreased mobility of the right leg. Dermatologic: No rashes Endocrine: No lymphadenopathy Past Medical History Past Medical History: COPD Pulmonary fibrosis Hypertension Hyperlipidemia Anxiety Depression GERD Spina bifida Chronic diarrhea CVA Migraines CHF Past Surgical History: Cardiac catheterization Cataract surgeries Tubal ligation Hysterectomy Spine surgery as an infant for the spina bifida Family History Cancer BROTHER (lung CA) One brother with lung cancer Another brother some type of chronic lung disease Mother lung disease Father [place] Social History Hx Tobacco Use In Past Year?: No Smoking Status: Current Every Day Smoker (E cigarette) Marital status: Housing status: lives with family Occupational Status: employed, disabled Immunizations History of Influenza Vaccine: Yes Influenza Vaccine Date: Jul 12, 2012 History of Tetanus Vaccine?: Unknown History of Pneumococcal: Unknown Pneumococcal Date: February 04, 2008 History of Hepatitis B Vaccine: No History of MDRO History of MDRO: No Allergies Coded Allergies: Morphine (Verified Adverse Reaction, Mild, confusion, 03/25/17) [place] Oil (Verified Adverse Reaction, Unknown, GI UPSET, 04/07/16) Milk (Verified Adverse Reaction, Unknown, GI UPSET, 04/07/16) Current Medications Reported Home Medications Medications Dose Route/Sig Max Daily Dose Days Date Category Dose Instructions Proair Respiclick (Albuterol Sulfate) 108 Mcg/Act Aer 2 Puffs INH Q4H PRN 03/23/17 Reported Zoloft (Sertraline HCl) 25 Mg Tab 25 Mg PO DAILY 03/23/17 Reported TAKE 25MG WITH 50MG FOR A TOTAL DOSE OF 75MG DAILY [Alteril] 0.5 Cap PO HS 04/07/16 Reported Oxygen Gas 3 Liters NA PRN 04/06/16 Reported Crestor (Rosuvastatin Calcium) 20 Mg Tab 20 Mg PO QPM 03/20/16 Reported Probiotic (Probiotic Product) 1 Cap Cap 1 Cap PO DAILY 08/03/15 Reported Flexeril (Cyclobenzaprine Hcl) 5 Mg Tab 5 Mg PO TID PRN 08/03/15 Reported PRN Imodium (Loperamide HCl) 2 Mg Cap 2 Mg PO UD 08/03/15 Reported Take 1 tab by mouth once. Then take 1 tablet after each loose BM. No more than 4 tablets per day for up to 2 days. Isometheptene/Dichloralph 325-65-100 mg (Ohullgbqhlstu-Vhtdfguszccsg-Sw) 1 Cap Cap 1 Cap PO PRN UD 08/03/15 Reported Take 2 tablets at onset of headache then 1 every hour until headache resolves. No more than 5 tabs in 24 hours. Lomotil (Diphenoxylate HCl/Atropine) Tab 1 Tab PO BID PRN 08/03/15 Reported Aspirin Ec (Aspirin) 81 Mg Tab 81 Mg PO DAILY 04/29/15 Reported Pamelor (Nortriptyline Hcl) 25 Mg Cap 25 Mg PO QAM 04/29/15 Reported Vesicare (Solifenacin Succinate) 5 Mg Tab 5 Mg PO QAM 04/29/15 Reported Tudorza Pressair (Aclidinium Herreid) 400 Mcg/Act Aer 1 Puff INH BID 04/29/15 Reported Sertraline HCl 50 Mg Tab 50 Mg PO QPM 04/29/15 Reported Symbicort 80/4.5 Inhaler (Budesonide/Formoterol Fumarate) 120 Puffs/ Aero 2 Puffs INH BID 04/29/15 Reported Os-Harman 500 Plus D (Calcium/Vitamin D) Tab 1 Tab PO BID 02/14/13 Reported Pepcid (Famotidine) 20 Mg Tab 20 Mg PO QPM 02/14/13 Reported Lopressor (Metoprolol Tartrate) 25 Mg Tab 25 Mg PO BID 02/14/13 Reported Librax 5MG/2.5MG (Chlordiazepoxide/Clidinium) 1 Ea Cap 1 Ea PO DAILY 09/07/12 Reported Physical Physical Exam Vital Signs: Date Time Temp Pulse Resp B/P (MAP) Pulse Ox O2 Delivery O2 Flow Rate FiO2 03/26/17 08:00 Nasal Cannula 6.0 03/26/17 07:45 36.6 83 22 96/60 (72) 91 Nasal Cannula 6.0 03/26/17 07:27 105/64 (78) 03/26/17 07:18 80 16 90 Nasal Cannula 6.0 03/26/17 01:58 88 16 91 Nasal Cannula 6.0 03/26/17 00:00 90 Nasal Cannula 6.0 03/25/17 23:04 37.0 101 20 105/69 (81) 87 Nasal Cannula 5.0 03/25/17 22:09 104 16 90 Nasal Cannula 6.0 03/25/17 20:35 98 103/69 (80) 03/25/17 20:00 Nasal Cannula 6.0 03/25/17 19:51 85/58 (67) 03/25/17 16:00 Nasal Cannula 5.0 03/25/17 15:30 37.2 87 18 126/76 (93) 94 Nasal Cannula 5.0 The patient is a 61-year-old female who was cooperative alert and oriented. She looked comfortable at rest. Temperature was 36.6. The maximum temperature since admission 37.4. Eye exam shows implants bilaterally. Nasal cannula was in place. Mouth exam showed dentures. She has somewhat of a larger neck. It is somewhat short. No lymphadenopathy was noted. The chest showed a mild kyphosis. The heart rate was 83 bpm. The rhythm was regular. The blood pressure is 96/60. Auscultation of the lung mora reveals diffuse dry rales posteriorly bilaterally. These would be dry in character. The respiratory rate is 22 breaths per minute. The oxygen saturation is 91% on 6 L. There was no accessory muscle use. There is a scar on the posterior chest related to the surgery for the spina bifida. The abdomen is soft. Bowel sounds were present. There was no tenderness to palpation masses or organomegaly. The right leg has an immobilizer in place. She has minimal abilities to dorsiflex the foot on the right. Left leg is weak but not as immobilized as the right side. Clubbing was noted. Diagnostics Labs Results Past 24 Hours Test 03/25/17 20:10 03/25/17 20:45 03/25/17 21:35 03/26/17 06:19 Range/Units White Blood Count 13.28 4.8-10.8 K/uL Red Blood Count 3.79 4.2-5.4 M/uL Hemoglobin 12.0 12.0-16.0 g/dL Hematocrit 35.4 37-47 % Mean Corpuscular Volume 93.4 80-100 fL Mean Corpuscular Hemoglobin 31.7 25-34 pg Mean Corpuscular Hemoglobin Concent 33.9 32-36 g/dl Platelet Count 172 130-400 K/uL Mean Platelet Volume 10.4 7.4-10.4 fL Neutrophils (%) (Auto) 75.7 % Lymphocytes (%) (Auto) 12.0 % Monocytes (%) (Auto) 8.5 % Eosinophils (%) (Auto) 3.4 % Basophils (%) (Auto) 0.2 % Neutrophils # (Auto) 10.04 1.4-6.5 K/uL Lymphocytes # (Auto) 1.60 1.2-3.4 K/uL Monocytes # (Auto) 1.13 0.11-0.59 K/uL Eosinophils # (Auto) 0.45 0-0.5 K/uL Basophils # (Auto) 0.03 0-0.2 K/uL RDW Standard Deviation 49.3 36.4-46.3 fL RDW Coefficient of Variation 14.4 11.5-14.5 % Immature Granulocyte % (Auto) 0.2 % Immature Granulocyte # (Auto) 0.03 0.00-0.02 K/uL Activated Partial Thromboplast Time 26.6 21.0-31.0 SECONDS Partial Thromboplastin Ratio 1.0 Sodium Level 133 135 136-145 mmol/L Potassium Level 4.2 4.1 3.5-5.1 mmol/L Chloride Level 99 102 98-107 mmol/L Carbon Dioxide Level 28 26 21-32 mmol/L Anion Gap 6.0 7.0 3-11 mmol/L Blood Urea Nitrogen 17 12 7-18 mg/dl Creatinine 1.20 0.75 0.60-1.20 mg/dl Est Creatinine Clear Calc Drug Dose 40.2 64.3 ml/min Estimated GFR () 56.1 99.0 Estimated GFR (Non- 48.4 85.4 BUN/Creatinine Ratio 13.9 16.5 10-20 Random Glucose 123 165 70-99 mg/dl Calcium Level 8.4 8.3 8.5-10.1 mg/dl Magnesium Level 1.9 1.8-2.4 mg/dl Total Creatine Kinase 233 26-192 U/L Pro-B-Type Natriuretic Peptide 972 0-900 pg/ml Arterial Blood pH 7.43 7.35-7.45 Arterial Blood Partial Pressure CO2 42 35-46 mmHg Arterial Blood Partial Pressure O2 51 80-95 mmHg Arterial Blood HCO3 27 19-24 mmol/L Arterial Blood Oxygen Saturation 86.2 90-95 % Arterial Blood Base Excess 2.5 -9-1.8 mEq/L Arterial Blood Gas Delivery 6L O2 Sharif Test POS POS Lactic Acid Level 1.1 0.4-2.0 mmol/L Microbiology Results 03/25/17 Blood Culture, Received Pending 03/25/17 Blood Culture, Received Pending The admission white blood cell count was 11.4. Yesterday's white count is up to 13.28. Admission hemoglobin was 14 and yesterday the hemoglobin is 12. Platelets on admission were 217,000 and on March 25 the platelets were 172,000. Urinalysis showed 1+ blood, positive nitrites, moderate leukocyte esterase, 10- 30 wbc's, +4 urine bacteria. Today's electrolytes showed sodium 135 potassium 4.1 chloride 102 and bicarbonate 26. The BUN was 12 with a of 0.75. Blood sugar was 165. Calcium was 8.3. The pro BNP yesterday was 972. Impression Assessment and Plan Impressions: #1 respiratory failure with hypoxia #2 pneumonia right mid and upper lung field #3 interstitial lung disease #4 emphysema #5 urinary tract infection with Enterobacter erogenous Comments and recommendations: The patient appears to have underlying chronic disease including emphysema which has been seen on a prior CAT scan as well as some interstitial lung disease which is very prominent on physical exam. Superimposed on this appears to be an acute pneumonic infiltrate. Her symptoms are few but she is hypoxic. She is currently receiving Zosyn and I agree with that. She is getting every 6 hour no treatments with level albuterol and ipratropium. In light of the fact she is not terribly symptomatic I would not give her steroids at present. They could be used if she would become more symptomatic. The steroids would bother her sugars and may affect her ability to fight off the infection. Nonetheless would certainly use it if need be. She will need a follow-up x-ray in a few days to determine if her infiltrates are improving. The case was discussed with Dr. Ornelas.
--- NOTE | 2017-03-26 13:01 | Orthopedic Progress Note ---
Orthopedic Progress Note Date of Service Mar 26, 2017. Subjective Denies: chest pain, SOB, nausea / vomiting, light headedness, calf pain Additional Notes: Diminished pain right knee after aspiration yesterday. Objective calves soft nontender, N/V intact, capillary refill less than 2 sec., A&O x3, toes mobile Knee immobilizer in place with patient sitting at bedside chair. DNVSI. Diminished effusion right knee. No S/S of infection. Date Time Temp Pulse Resp B/P (MAP) Pulse Ox O2 Delivery O2 Flow Rate FiO2 03/26/17 08:00 Nasal Cannula 6.0 03/26/17 07:45 36.6 83 22 96/60 (72) 91 Nasal Cannula 6.0 03/26/17 07:27 105/64 (78) 03/26/17 07:18 80 16 90 Nasal Cannula 6.0 03/26/17 01:58 88 16 91 Nasal Cannula 6.0 03/26/17 00:00 90 Nasal Cannula 6.0 03/25/17 23:04 37.0 101 20 105/69 (81) 87 Nasal Cannula 5.0 03/25/17 22:09 104 16 90 Nasal Cannula 6.0 03/25/17 20:35 98 103/69 (80) 03/25/17 20:00 Nasal Cannula 6.0 03/25/17 19:51 85/58 (67) 03/25/17 16:00 Nasal Cannula 5.0 03/25/17 15:30 37.2 87 18 126/76 (93) 94 Nasal Cannula 5.0 Laboratory Results 24 Hours: Test 03/25/17 20:10 White Blood Count 13.28 K/uL Red Blood Count 3.79 M/uL Hemoglobin 12.0 g/dL Hematocrit 35.4 % Mean Corpuscular Volume 93.4 fL Mean Corpuscular Hemoglobin 31.7 pg Mean Corpuscular Hemoglobin Concent 33.9 g/dl Platelet Count 172 K/uL Mean Platelet Volume 10.4 fL Neutrophils (%) (Auto) 75.7 % Lymphocytes (%) (Auto) 12.0 % Monocytes (%) (Auto) 8.5 % Eosinophils (%) (Auto) 3.4 % Basophils (%) (Auto) 0.2 % Neutrophils # (Auto) 10.04 K/uL Lymphocytes # (Auto) 1.60 K/uL Monocytes # (Auto) 1.13 K/uL Eosinophils # (Auto) 0.45 K/uL Basophils # (Auto) 0.03 K/uL Assessment & Plan Assessment: Right knee pain improved after aspiration Right knee effusion.- CT negative for fracture R Knee DJD R Knee OA Plan: Knee immobilizer reapplied for comfort. May remove knee immobilizer while in bed prn Continue Ice to right knee. WBAT w/ brace as tolerated, walker and w/ assist x1. F/U with Dr Moya in clinic as outpatient.
[2017-03-26] MEDS: TRAMADOL HCL 50 MG TAB PO PRN (13:46)
[2017-03-26] MEDS: ROSUVASTATIN CALCIUM 20 MG TAB PO SCH (19:35)
[2017-03-26] MEDS: FAMOTIDINE 20 MG TAB PO SCH (19:35)
[2017-03-27] VITALS (10 sets, daily range): BP systolic 95–126; BP diastolic 65–77; PULSE 92–109; TEMP 36.5–36.7; O2SAT 90–95
[2017-03-27] MEDS: IPRATROPIUM BROMIDE NEB SOLN 0.02% 2.5 ML VIAL INH SCH ×4 (01:39→20:09)
[2017-03-27] MEDS: LEVALBUTEROL 1.25MG/0.5ML NEB INH SCH ×4 (01:40→20:09)
[2017-03-27] MEDS: PIPERACILL/TAZOBAC IV 3.375 GM in DEXTROSE 5% 100ML IV SCH ×3 (04:07→20:35)
[2017-03-27 07:41] LABS: CALCIUM 8.2 mg/dl (8.5-10.1); CREATININE 0.62 mg/dl (0.60-1.20)
[2017-03-27] MEDS: BUDESONIDE 90 MCG INH INH SCH ×2 (07:53→20:35)
[2017-03-27] MEDS: ASPIRIN 81 MG ECTAB PO SCH (07:55)
[2017-03-27] MEDS: SERTRALINE HCL 50 MG TAB PO SCH (07:56)
[2017-03-27] MEDS: GUAIFENESIN 600 MG TABCR PO SCH (07:56)
[2017-03-27] MEDS: NORTRIPTYLINE HCL 25 MG CAP PO SCH (07:56)
[2017-03-27] MEDS: POLYETHYLENE (MIRALAX) 17 GM PACK PO SCH (07:56)
[2017-03-27 08:01] LABS: HEMATOCRIT 31.9 % (37-47); MEAN CELL VOLUME 94.7 fL (80-100); MEAN CORPUSCULAR HEMOGLOBIN 30.6 pg (25-34); MEAN CORPUSCULAR HGB CONC 32.3 g/dl (32-36); MEAN PLATELET VOLUME 10.6 fL (7.4-10.4); PLATELET COUNT 186 K/uL (130-400); RED BLOOD COUNT 3.37 M/uL (4.2-5.4)
[2017-03-27] MEDS: METOPROLOL TARTRATE 25 MG TAB PO SCH ×2 (08:01→09:55)
[2017-03-27 08:02] LABS: BASO % 0.2 %; BASO ABS # 0.02 K/uL (0-0.2); COMPLETE YES; EOS % 5.6 %; IG% 0.3 %; LYMPH % 16.4 %; LYMPH ABS # 1.75 K/uL (1.2-3.4); MONO % 8.5 %
[2017-03-27] MEDS: ENOXAPARIN 40 MG/0.4 ML SYR SQ SCH (08:03)
[2017-03-27] MEDS: CHLORDIAZEPOXIDE 5 MG CAP PO SCH (08:05)
[2017-03-27] MEDS: LACTOBACILLUS ACIDOPHILUS (FLORANEX) TAB PO SCH (08:24)
--- NOTE | 2017-03-27 10:49 | DIAGNOSTIC IMAGING REPORT ---
CHEST ONE VIEW PORTABLE CLINICAL HISTORY: Worsening shortness of breath. Pneumonia. COMPARISON STUDY: 03/25/2017 FINDINGS: The cardiac and mediastinal contours remain stable. There are progressive bilateral airspace opacities superimposed on chronic interstitial lung disease. No pleural effusions are visualized. IMPRESSION: Progressive bilateral pulmonary airspace opacities superimposed on chronic interstitial lung disease. The findings could represent either a multifocal pneumonia, or pulmonary edema superimposed on chronic interstitial lung disease. Clinical and radiographic follow-up is recommended. Electronically signed by: Go Polanco M.D. 03/27/2017 10:48 AM Dictated Date/Time: 03/27/2017 10:46 AM
[2017-03-27 11:08] LABS: ARTERIAL BLD GAS O2 SATURATION 86.4 % (90-95); ARTERIAL BLOOD GAS HCO3 27 mmol/L (19-24); ARTERIAL BLOOD GAS PO2 52 mm/Hg (80-95)
[2017-03-27 11:09] LABS: ALLEN TEST POS (POS); O2 ADMINISTRATION 7 L
--- NOTE | 2017-03-27 11:19 | Progress Note ---
Medicine Progress Note Date & Time of Visit: Mar 26, 2017 at 09:56. Subjective 61 yoF presents with multiple falls at home and weakness s/p R knee injury with effusion s/p aspiration. Weakness thought 2/2 UTI and she has had symptoms of dysuria for the past two weeks. Uncertain cause of persistent malaise, so will keep here and see if things improve. Encouraged her to get out of bed frequently with assist. -reports feeling better overnight (after Zosyn added) -chills have resolved -reports worsened cough but non-productive. -tolerating PO -knee pain with weight bearing Objective Last 8 Hrs Date Time Temp Pulse Resp B/P (MAP) Pulse Ox O2 Delivery O2 Flow Rate FiO2 03/26/17 07:45 36.6 83 22 96/60 (72) 91 Nasal Cannula 6.0 03/26/17 07:27 105/64 (78) 03/26/17 07:18 80 16 90 Nasal Cannula 6.0 03/26/17 01:58 88 16 91 Nasal Cannula 6.0 Physical Exam: GEN: WNWD, in no acute distress, alert and appropriate, NC in place at 5L HEENT: NC/AT, normal sclerae CARDIO: reg rate, S1/2 heard without m/g/r LUNGS: crackles at RML, RLL, no rales or wheezes, good diaphragmatic excursion ABD: soft, non-tender, non-distended, no rebound or guarding, +BS, no CVA tenderness EXTREMITY: RP and DP palpable 2+ bilat, no LE swelling or edema, extremities are warm and well-perfused, knee immobilizer in place. REFER TO ORTHO NOTE FOR FULL KNEE EXAM NEURO: CN 2-12 grossly intact, sensation intact throughout, mentating appropriately MUSC: 5/5 strength throughout, no focal deficits, limited exam with knee immobilizer in place SKIN: warm and dry Laboratory Results: Last 24 Hours Test 03/25/17 20:10 03/25/17 20:45 03/25/17 21:35 03/26/17 06:19 White Blood Count 13.28 K/uL Red Blood Count 3.79 M/uL Hemoglobin 12.0 g/dL Hematocrit 35.4 % Mean Corpuscular Volume 93.4 fL Mean Corpuscular Hemoglobin 31.7 pg Mean Corpuscular Hemoglobin Concent 33.9 g/dl Platelet Count 172 K/uL Mean Platelet Volume 10.4 fL Neutrophils (%) (Auto) 75.7 % Lymphocytes (%) (Auto) 12.0 % Monocytes (%) (Auto) 8.5 % Eosinophils (%) (Auto) 3.4 % Basophils (%) (Auto) 0.2 % Neutrophils # (Auto) 10.04 K/uL Lymphocytes # (Auto) 1.60 K/uL Monocytes # (Auto) 1.13 K/uL Eosinophils # (Auto) 0.45 K/uL Basophils # (Auto) 0.03 K/uL RDW Standard Deviation 49.3 fL RDW Coefficient of Variation 14.4 % Immature Granulocyte % (Auto) 0.2 % Immature Granulocyte # (Auto) 0.03 K/uL Activated Partial Thromboplast Time 26.6 SECONDS Partial Thromboplastin Ratio 1.0 Sodium Level 133 mmol/L 135 mmol/L Potassium Level 4.2 mmol/L 4.1 mmol/L Chloride Level 99 mmol/L 102 mmol/L Carbon Dioxide Level 28 mmol/L 26 mmol/L Anion Gap 6.0 mmol/L 7.0 mmol/L Blood Urea Nitrogen 17 mg/dl 12 mg/dl Creatinine 1.20 mg/dl 0.75 mg/dl Est Creatinine Clear Calc Drug Dose 40.2 ml/min 64.3 ml/min Estimated GFR () 56.1 99.0 Estimated GFR (Non- 48.4 85.4 BUN/Creatinine Ratio 13.9 16.5 Random Glucose 123 mg/dl 165 mg/dl Calcium Level 8.4 mg/dl 8.3 mg/dl Magnesium Level 1.9 mg/dl Total Creatine Kinase 233 U/L Pro-B-Type Natriuretic Peptide 972 pg/ml Arterial Blood pH 7.43 Arterial Blood Partial Pressure CO2 42 mmHg Arterial Blood Partial Pressure O2 51 mmHg Arterial Blood HCO3 27 mmol/L Arterial Blood Oxygen Saturation 86.2 % Arterial Blood Base Excess 2.5 mEq/L Arterial Blood Gas Delivery 6L O2 Sharif Test POS Lactic Acid Level 1.1 mmol/L Date/Time Source Procedure Growth Status 03/25/17 21:35 Blood Blood Culture Pending Received 03/25/17 20:40 Blood Blood Culture Pending Received Assessment & Plan 61 yoF presents with multiple falls at home and weakness s/p R knee injury with effusion s/p aspiration. Weakness thought 2/2 UTI and she has had symptoms of dysuria for the past two weeks. Uncertain cause of persistent malaise, so will keep here and see if things improve. Encouraged her to get out of bed frequently with assist. 1. Hypoxia 2/2 RML pneumonia-pt became more short of breath last night with a worsened cough and persistent chills. She was also confused but had been given morphine, which was thought to be the cause. There is a question of aspiration so SP has been asked to evaluate. ABX changed to Zosyn and she appears clinically improved today reporting resolution of chills. She states that her cough is more productive now and prominent. She reports not getting out of bed here yesterday because she didn't feel well. Encouraged to get up and into chair. Aspiration precautions with eating, and cont incentive spirometry which is at bedside. Pulm was consulted for assistance with the hypoxia prior to identifying the pneumonia. Ongoing e-cigarette use. 2. Weakness and multiple falls poss 2/2 infection with now two systems affected--symptoms ongoing for two weeks. Blood cultures remain negative and she is clinically better this morning. Cont plan as above. 3. R knee effusion-wrapped in full leg knee immobilizer, see Ortho note for exam. CT knee revealed no patellar fracture and Ortho tapped effusion. No serologic studies are pending. Pt is doing well post-procedure 4. HTN- presented with hypertensive urgency. Hypotensive last night but is currently controlled. 5. h/o CVA-aspiration precautions. 6. IBS-c-diff is pending but patient has not had BM since admission. Of note, she was on Librax as an outpatient, which has a benzo component. Her persistent malaise that was nonspecific was though possibly 2/2 benzo withdrawal as she reports being on this long-term. The chlordiapoxide part was restarted, however, she is better on the abx so the malaise was most likely 2/2 infection. 7. Spina bifida DVT prophylaxis Lovenox subcutaneous Full code Dispo-needs acute inpatient rehab per PT evaluation DO Liliam Subramanian Hospitalist Consultants: Ortho, Pulm, ACADEMIC COACH Current Inpatient Medications: Current Inpatient Medications Medications (Trade) Dose Ordered Sig/Bishnu Route Start Time Stop Time Status Last Admin Dose Admin Enoxaparin Sodium (Lovenox Inj) 40 mg Q24H SQ 03/24/17 09:00 04/23/17 08:59 03/26/17 07:35 40 MG Acetaminophen (Tylenol Tab) 650 mg Q4H PRN PO 03/24/17 00:30 04/23/17 00:29 Ondansetron HCl (Zofran Inj) 4 mg Q6H PRN IV 03/24/17 00:30 04/23/17 00:29 Tramadol HCl (Ultram Tab) 25 mg Q6H PRN PO 03/24/17 00:30 04/23/17 00:29 03/25/17 13:04 25 MG Aspirin (Ecotrin Tab) 81 mg DAILY PO 03/24/17 09:00 04/23/17 08:59 03/26/17 07:29 81 MG Famotidine (Pepcid Tab) 20 mg QPM PO 03/24/17 21:00 04/23/17 20:59 03/25/17 19:46 20 MG Nortriptyline HCl (Pamelor Cap) 25 mg QAM PO 03/24/17 09:00 04/23/17 08:59 03/26/17 07:34 25 MG Rosuvastatin Calcium (Crestor Tab) 20 mg QPM PO 03/24/17 21:00 04/23/17 20:59 03/25/17 19:46 20 MG Sertraline HCl (Zoloft Tab) 25 mg DAILY PO 03/24/17 09:00 04/23/17 08:59 03/26/17 07:34 25 MG Sertraline HCl (Zoloft Tab) 50 mg QPM PO 03/24/17 21:00 04/23/17 20:59 03/25/17 19:46 50 MG Lactobacillus Acidophilus (Floranex Tab) 4 tab DAILY PO 03/24/17 09:00 04/23/17 08:59 03/26/17 07:48 4 TAB Ipratropium [place] (Atrovent 0.02% 0.5MG/2.5ML Neb) 0.5 mg Q4H PRN INH 03/24/17 01:30 04/23/17 01:29 Levalbuterol (Xopenex 1.25MG/ 0.5ML Neb) 1.25 mg Q4H PRN INH 03/24/17 01:30 04/23/17 01:29 Miscellaneous Information (Order Awaiting Action) 1 ea QS N/A 03/24/17 08:00 04/23/17 07:59 Ketorolac Tromethamine (Toradol Inj) 15 mg Q6H PRN IV. 03/25/17 20:00 03/30/17 19:59 Metoprolol Tartrate (Lopressor Tab) 12.5 mg BID PO 03/26/17 09:00 04/23/17 08:59 03/26/17 07:30 12.5 MG Piperacillin Sod/ Tazobactam Sod (Consult) 1 ea UD PRN N/A 03/25/17 21:45 04/24/17 21:44 Guaifenesin (Mucinex Contr Rel Tab) 600 mg Q12 PO 03/26/17 09:00 04/25/17 08:59 03/26/17 07:33 600 MG Sodium Chloride 1,000 ml @ 80 mls/hr [id number] ONCE IV 03/25/17 21:30 03/26/17 09:59 03/25/17 21:53 80 MLS/HR Budesonide (Pulmicort Inhaler) 2 puffs BID INH 03/26/17 09:00 04/25/17 08:59 03/26/17 07:31 2 PUFFS Ipratropium [place] (Atrovent 0.02% 0.5MG/2.5ML Neb) 0.5 mg Q6R INH 03/26/17 03:00 04/25/17 02:59 03/26/17 07:18 0.5 MG Levalbuterol (Xopenex 1.25MG/ 0.5ML Neb) 1.25 mg Q6R INH 03/26/17 03:00 04/25/17 02:59 03/26/17 07:18 1.25 MG Piperacillin Sod/ Tazobactam Sod 3.375 gm/Dextrose 115 ml @ 28.75 mls/ hr Q8@0400,1200,2000 IV 03/26/17 04:00 04/02/17 03:59 03/26/17 03:53 28.75 MLS/HR Chlordiazepoxide (Librium Cap) 5 mg DAILY PO 03/26/17 09:00 04/25/17 08:59 03/26/17 09:51 5 MG
[2017-03-27] MEDS ORDERED: VANCOMYCIN INJ 1,000 MG in SODIUM CHLORIDE 0.9% 250ML 250 ML IV STA (11:37)
[2017-03-27] MEDS ORDERED: VANCOMYCIN CONSULT ACTIVE PRN (12:00)
[2017-03-27] MEDS ORDERED: FUROSEMIDE INJ 40 MG in SYRINGE 0 ML IV ONE (12:00)
[2017-03-27] MEDS ORDERED: ACETAMINOPHEN IV 650 MG in EMPTY BAG 0 ML IV PRN (12:15)
--- NOTE | 2017-03-27 12:17 | Pulmonology Progress Note ---
Pulmonary Progress Note Date of Service Mar 27, 2017. Attending Dr. Perera Subjective The patient is a little bit more short of breath today. Her oxygenation has been lower. She was switched over to an Oxymask with 7 L of oxygen. She has only a dry cough. There has been no sputum production. She is not having chest pains. She doesn't feel just quite right compared with yesterday. Objective The patient was cooperative alert and oriented. She looks just mildly short of breath. Current temperature 36.7. ENT exam was unremarkable. Heart rate was 102. The blood pressure is 119/67. Her respiratory rate was increased to 26 breaths per minute. Rales were heard bilaterally posteriorly. There was no accessory muscle use. Her oxygen saturation with the oxymask at 7 L was 87%. We increased it to 10 L and her sats immediately went up to 92%. The abdomen was soft and nontender. She does have clubbing. There was no significant edema. Her legs remained very weak bilaterally but worse on the right. The patient had a blood gas done this morning showing a pH of 7.40 with a PCO2 of 45 and a PO2 of 52 and that was done with the oxygen mask 7 L. Although her PCO2 was not significantly elevated it is trending upward slightly. Electrolytes today show sodium 138 potassium 4.0 chloride 104 bicarbonate 29. The BUN is 10 with a creatinine of 0.62. White count today was 10.7. Hemoglobin was 10.3. Platelets are 186,000. She did have a chest x-ray done today showing progressive bilateral airspace opacities. Assessment & Plan Impressions: #1 respiratory failure with hypoxia #2 interstitial lung disease #3 emphysema #4 probable right lung pneumonia but with inability to exclude CHF #5 UTI with Enterobacter Comments and recommendations: The case was discussed with Dr. Ornelas. I agree with moving the patient to medical ICU in light of her increased oxygen needs. She is having an increased shunt. She has not improved and is likely worse today. She seems to be holding her oxygen well with the oxymask. If this is not adequate she would then need BiPAP. She doesn't look terribly uncomfortable and thus will hold off on the BiPAP. She is going to be given a diuretic trial. I have also suggested that the patient be started on Solu-Medrol. I believe a CAT scan of the chest would be appropriate. This would be to evaluate her underlying disease as well as ruling out acute pulmonary emboli in light of the hypoxia. Her BUN and creatinine as of now are adequate. Thus will get a CT angiogram of the chest. It may be worth checking the proBNP once again and comparing with what it was a couple of days ago. Data Medications: Current Inpatient Medications Medications (Trade) Dose Ordered Sig/Bishnu Route Start Time Stop Time Status Last Admin Dose Admin Enoxaparin Sodium (Lovenox Inj) 40 mg Q24H SQ 03/24/17 09:00 04/23/17 08:59 03/27/17 08:03 40 MG Acetaminophen (Tylenol Tab) 650 mg Q4H PRN PO 03/24/17 00:30 04/23/17 00:29 03/26/17 18:32 650 MG Ondansetron HCl (Zofran Inj) 4 mg Q6H PRN IV 03/24/17 00:30 04/23/17 00:29 Tramadol HCl (Ultram Tab) 25 mg Q6H PRN PO 03/24/17 00:30 04/23/17 00:29 03/26/17 13:46 25 MG Aspirin (Ecotrin Tab) 81 mg DAILY PO 03/24/17 09:00 04/23/17 08:59 03/27/17 07:55 81 MG Famotidine (Pepcid Tab) 20 mg QPM PO 03/24/17 21:00 04/23/17 20:59 03/26/17 19:35 20 MG Nortriptyline HCl (Pamelor Cap) 25 mg QAM PO 03/24/17 09:00 04/23/17 08:59 03/27/17 07:56 25 MG Rosuvastatin Calcium (Crestor Tab) 20 mg QPM PO 03/24/17 21:00 04/23/17 20:59 03/26/17 19:35 20 MG Sertraline HCl (Zoloft Tab) 25 mg DAILY PO 03/24/17 09:00 04/23/17 08:59 03/27/17 07:56 25 MG Sertraline HCl (Zoloft Tab) 50 mg QPM PO 03/24/17 21:00 04/23/17 20:59 03/26/17 19:35 50 MG Lactobacillus Acidophilus (Floranex Tab) 4 tab DAILY PO 03/24/17 09:00 04/23/17 08:59 03/27/17 08:24 4 TAB Ipratropium [place] (Atrovent 0.02% 0.5MG/2.5ML Neb) 0.5 mg Q4H PRN INH 03/24/17 01:30 04/23/17 01:29 Levalbuterol (Xopenex 1.25MG/ 0.5ML Neb) 1.25 mg Q4H PRN INH 03/24/17 01:30 04/23/17 01:29 Miscellaneous Information (Order Awaiting Action) 1 ea QS N/A 03/24/17 08:00 04/23/17 07:59 Ketorolac Tromethamine (Toradol Inj) 15 mg Q6H PRN IV. 03/25/17 20:00 03/30/17 19:59 Metoprolol Tartrate (Lopressor Tab) 12.5 mg BID PO 03/26/17 09:00 04/23/17 08:59 03/27/17 09:55 12.5 MG Piperacillin Sod/ Tazobactam Sod (Consult) 1 ea UD PRN N/A 03/25/17 21:45 04/24/17 21:44 Guaifenesin (Mucinex Contr Rel Tab) 600 mg Q12 PO 03/26/17 09:00 04/25/17 08:59 03/27/17 07:56 600 MG Budesonide (Pulmicort Inhaler) 2 puffs BID INH 03/26/17 09:00 04/25/17 08:59 03/27/17 07:53 2 PUFFS Ipratropium [place] (Atrovent 0.02% 0.5MG/2.5ML Neb) 0.5 mg Q6R INH 03/26/17 03:00 04/25/17 02:59 03/27/17 07:14 0.5 MG Levalbuterol (Xopenex 1.25MG/ 0.5ML Neb) 1.25 mg Q6R INH 03/26/17 03:00 04/25/17 02:59 03/27/17 07:14 1.25 MG Piperacillin Sod/ Tazobactam Sod 3.375 gm/Dextrose 115 ml @ 28.75 mls/ hr Q8@0400,1200,2000 IV 03/26/17 04:00 04/02/17 03:59 03/27/17 11:51 28.75 MLS/HR Chlordiazepoxide (Librium Cap) 5 mg DAILY PO 03/26/17 09:00 04/25/17 08:59 03/27/17 08:05 5 MG Polyethylene (Miralax Powder Packet) 17 gm DAILY PO 03/26/17 10:00 04/25/17 09:59 03/26/17 11:36 17 GM Vancomycin HCl (Consult) 1 ea UD PRN N/A 03/27/17 12:00 04/26/17 11:59 Vancomycin HCl 1600 mg/Sodium Chloride 532 ml @ 200 mls/hr 1230 IV 03/27/17 12:30 03/27/17 15:10 Methylprednisolone Sodium Succinate 40 mg/Syringe 0.64 ml @ 1.5 mls/min Q8H IV 03/27/17 13:00 04/26/17 12:59 Vital Signs: Date Time Temp Pulse Resp B/P (MAP) Pulse Ox O2 Delivery O2 Flow Rate FiO2 03/27/17 09:56 102 119/67 (84) 03/27/17 08:00 Nasal Cannula 6.0 03/27/17 07:54 36.7 102 18 95/65 (75) 90 Nasal Cannula 5.0 03/27/17 07:15 105 16 90 Nasal Cannula 6.0 03/27/17 00:00 Nasal Cannula 6.0 03/26/17 22:52 36.5 84 18 107/71 (83) 93 Nasal Cannula 6.0 03/26/17 20:00 Nasal Cannula 6.0 03/26/17 19:29 100 16 90 Nasal Cannula 6.0 03/26/17 16:00 Nasal Cannula 6.0 03/26/17 15:46 36.7 95 20 99/63 (75) 90 Nasal Cannula 5.0 03/26/17 14:16 83 16 91 Nasal Cannula 6.0 Laboratory Results: Last 24 Hours Test 03/27/17 06:41 03/27/17 10:55 White Blood Count 10.70 K/uL Red Blood Count 3.37 M/uL Hemoglobin 10.3 g/dL Hematocrit 31.9 % Mean Corpuscular Volume 94.7 fL Mean Corpuscular Hemoglobin 30.6 pg Mean Corpuscular Hemoglobin Concent 32.3 g/dl Platelet Count 186 K/uL Mean Platelet Volume 10.6 fL Neutrophils (%) (Auto) 69.0 % Lymphocytes (%) (Auto) 16.4 % Monocytes (%) (Auto) 8.5 % Eosinophils (%) (Auto) 5.6 % Basophils (%) (Auto) 0.2 % Neutrophils # (Auto) 7.39 K/uL Lymphocytes # (Auto) 1.75 K/uL Monocytes # (Auto) 0.91 K/uL Eosinophils # (Auto) 0.60 K/uL Basophils # (Auto) 0.02 K/uL RDW Standard Deviation 50.2 fL RDW Coefficient of Variation 14.7 % Immature Granulocyte % (Auto) 0.3 % Immature Granulocyte # (Auto) 0.03 K/uL Sodium Level 138 mmol/L Potassium Level 4.0 mmol/L Chloride Level 104 mmol/L Carbon Dioxide Level 29 mmol/L Anion Gap 5.0 mmol/L Blood Urea Nitrogen 10 mg/dl Creatinine 0.62 mg/dl Est Creatinine Clear Calc Drug Dose 77.8 ml/min Estimated GFR () 112.0 Estimated GFR (Non- 96.6 BUN/Creatinine Ratio 16.0 Random Glucose 94 mg/dl Calcium Level 8.2 mg/dl Arterial Blood pH 7.40 Arterial Blood Partial Pressure CO2 45 mmHg Arterial Blood Partial Pressure O2 52 mm/Hg Arterial Blood HCO3 27 mmol/L Arterial Blood Oxygen Saturation 86.4 % Arterial Blood Base Excess 2.0 mEq/L Arterial Blood Gas Delivery 7 L Sharif Test POS
[2017-03-27] MEDS ORDERED: VANCOMYCIN INJ 1,600 MG in SODIUM CHLORIDE 0.9% 500ML 500 ML IV SCH (12:30)
[2017-03-27] MEDS ORDERED: OPTIRAY 320 IV PRN (13:00)
--- NOTE | 2017-03-27 13:23 | DIAGNOSTIC IMAGING REPORT ---
CHEST CTA for PULMONARY ARTERIES CT DOSE: 427.69 mGy.cm HISTORY: Chest pain dyspnea TECHNIQUE: Multiaxial CT images of the chest were performed following the intravenous administration of contrast to evaluate the pulmonary arteries. Maximal intensity projection images were also obtained. COMPARISON STUDY: 01/13/2016 FINDINGS: Thoracic aorta shows mild left ischemic change. No evidence for aneurysm or dissection. Pulmonary vasculature enhances uniformly. There are no filling defects. There are several mediastinal and/or hilar nodes unaltered from the prior study. Calcified granulomatous-type change of the right hilum is stable. Emphysematous changes again noted with baseline chronic fibrotic change. There is a superimposed degree of interstitial edema. There are no true consolidative infiltrates. IMPRESSION: 1. Study is negative for pulmonary embolus. 2. Pulmonary edema superimposed upon pre-existing chronic fibrosis. Electronically signed by: Steven Vidal M.D. 03/27/2017 1:21 PM Dictated Date/Time: 03/27/2017 1:17 PM
--- NOTE | 2017-03-27 13:25 | Pharmacy Progress Note ---
Pharmacy Abx Initial Consult Date of Service Mar 27, 2017. Pharmacy Dosing Scope Date of Consult: 03/27/17 Consultation requested by: Dr. Ornelas Pharmacy is consulted to initiate Vancomycin IV dosing therapy for pneumonia, order appropriate labs and adjust drug dose/frequency. Subjective The patient is a 61 year old female admitted on Mar 24, 2017 at 00:07. Objective Height (Feet): 5 Height (Inches): 3.00 Weight (Kilograms): 61.900 Vital Signs (Past 12Hrs) Vital Signs Past 12 Hours Date Time Temp Pulse Resp B/P (MAP) Pulse Ox O2 Delivery O2 Flow Rate FiO2 03/27/17 12:53 109 24 92 10.0 03/27/17 09:56 102 119/67 (84) 03/27/17 08:00 Nasal Cannula 6.0 03/27/17 07:54 36.7 102 18 95/65 (75) 90 Nasal Cannula 5.0 03/27/17 07:15 105 16 90 Nasal Cannula 6.0 Lab Results (24Hrs) Laboratory Tests (24 Hours) Test 03/27/17 06:41 White Blood Count 10.70 K/uL (4.8-10.8) Red Blood Count 3.37 M/uL (4.2-5.4) L Hemoglobin 10.3 g/dL (12.0-16.0) L Hematocrit 31.9 % (37-47) L Mean Corpuscular Volume 94.7 fL (80-100) Mean Corpuscular Hemoglobin 30.6 pg (25-34) Mean Corpuscular Hemoglobin Concent 32.3 g/dl (32-36) Platelet Count 186 K/uL (130-400) Mean Platelet Volume 10.6 fL (7.4-10.4) H Neutrophils (%) (Auto) 69.0 % Lymphocytes (%) (Auto) 16.4 % Monocytes (%) (Auto) 8.5 % Eosinophils (%) (Auto) 5.6 % Basophils (%) (Auto) 0.2 % Neutrophils # (Auto) 7.39 K/uL (1.4-6.5) H Lymphocytes # (Auto) 1.75 K/uL (1.2-3.4) Monocytes # (Auto) 0.91 K/uL (0.11-0.59) H Eosinophils # (Auto) 0.60 K/uL (0-0.5) H Basophils # (Auto) 0.02 K/uL (0-0.2) Micro Results Date/Time Source Procedure Growth Status 03/25/17 21:35 Blood Blood Culture - Preliminary NO GROWTH TO DATE. Resulted 03/25/17 20:40 Blood Blood Culture - Preliminary NO GROWTH TO DATE. Resulted 03/23/17 20:48 Blood Blood Culture - Preliminary NO GROWTH TO DATE. Resulted 03/23/17 20:05 Blood Blood Culture - Preliminary NO GROWTH TO DATE. Resulted 03/23/17 21:30 Urine,Catheterized Urine Culture - Final Enterobacter Aerogenes Complete Risk Factors for Resistance * Antimicrobial use within the last 90 days: Rocephin for UTI Assessment & Plan Assessment 61 year old female with a history of UTI (empirically treated with Rocephin) and COPD on home oxygen. Plan Pharmacy has been consulted for treatment of pneumonia. Vancomycin IV * Loading dose: 1600 mg (25 mg/kg) * Maintenance dose: 900 mg IV (14 mg/kg) every 12 hours * Estimated P'kinetic levels: ke= 0.069/hr, t1/2= 10 hrs * Goal trough level for pneumonia : 15 to 20 mcg/mL * Trough level ordered for 03/29/17 ~30 minutes before the 03/29/17 0000 dose. Piperacillin/tazobactam (consult started 03/25/17) * 4.5 g bolus administered over 30 minutes, then 3.375 g IV extended infusion every 8 hours for CrCl greater than 20 mL/min Pharmacy will continue to follow and will adjust dose/frequency as necessary. Thank you.
[2017-03-27] MEDS: METHYLPREDNISOLONE IV 40 MG in SYRINGE 0 ML IV SCH ×2 (15:10→20:35)
[2017-03-27] MEDS: FUROSEMIDE INJ 40 MG in SYRINGE 0 ML IV SCH (17:01)
--- NOTE | 2017-03-27 22:54 | Progress Note ---
Medicine Progress Note Date & Time of Visit: Mar 27, 2017 at 11:19. Subjective 61 yoF presents with multiple falls at home and weakness s/p R knee injury with effusion s/p aspiration. Weakness thought 2/2 UTI and she has had symptoms of dysuria for the past two weeks. Uncertain cause of persistent malaise, so will keep here and see if things improve. Encouraged her to get out of bed frequently with assist -reports some non-productive coughing -no fevers or chills overnight -doing well this morning -knee pain is well controlled -on 7L oxymask Objective Last 8 Hrs Date Time Temp Pulse Resp B/P (MAP) Pulse Ox O2 Delivery O2 Flow Rate FiO2 03/27/17 09:56 102 119/67 (84) 03/27/17 07:54 36.7 102 18 95/65 (75) 90 Nasal Cannula 5.0 03/27/17 07:15 105 16 90 Nasal Cannula 6.0 Physical Exam: GEN: WNWD, in no acute distress, alert and appropriate, NC in placeon 7L via Oxymask HEENT: NC/AT, normal sclerae CARDIO: reg rate, S1/2 heard without m/g/r LUNGS: crackles at RML, RLL, no rales or wheezes, good diaphragmatic excursion ABD: soft, non-tender, non-distended, no rebound or guarding, +BS, no CVA tenderness EXTREMITY: RP and DP palpable 2+ bilat, no LE swelling or edema, extremities are warm and well-perfused, knee immobilizer in place. REFER TO ORTHO NOTE FOR FULL KNEE EXAM-no obvious knee swelling present, no bruising or warmth. NEURO: CN 2-12 grossly intact, mentating appropriately MUSC: 5/5 strength throughout, no focal deficits, limited exam with knee immobilizer in place SKIN: warm and dry Laboratory Results: 03/27/17 06:41 Red Blood Count 3.37, Mean Corpuscular Volume 94.7, Mean Corpuscular Hemoglobin 30.6, Mean Corpuscular Hemoglobin Concent 32.3, Mean Platelet Volume 10.6, Neutrophils (%) (Auto) 69.0, Lymphocytes (%) (Auto) 16.4, Monocytes (%) (Auto) 8.5, Eosinophils (%) (Auto) 5.6, Basophils (%) (Auto) 0.2, Neutrophils # (Auto) 7.39, Lymphocytes # (Auto) 1.75, Monocytes # (Auto) 0.91, Eosinophils # (Auto) 0.60, Basophils # (Auto) 0.02 Test 03/23/17 20:05 03/23/17 20:09 03/23/17 21:30 03/25/17 20:10 Prothrombin Time 10.5 SECONDS (9.0-12.0) Prothromb Time International Ratio 1.0 (0.9-1.1) Total Bilirubin 0.3 mg/dl (0.2-1) Direct Bilirubin mg/dl (0-0.2) Aspartate Amino Transf (AST/SGOT) 24 U/L (15-37) Alanine Aminotransferase (ALT/SGPT) 14 U/L (12-78) Alkaline Phosphatase 98 U/L (45-117) Creatine Kinase MB 4.2 ng/ml (0.5-3.6) Creatine Kinase MB Ratio 1.1 (0-3.0) Troponin I < 0.015 ng/ml (0-0.045) Total Protein 8.1 gm/dl (6.4-8.2) Albumin 3.8 gm/dl (3.4-5.0) Lipase 92 U/L (73-393) Thyroid Stimulating Hormone (TSH) 1.400 uIu/ml (0.300-4.500) Chemistry Specimen Hemolysis Bedside Lactic Acid Venous 1.47 mmol/L (0.90-1.70) Urine Color YELLOW Urine Appearance CLEAR (CLEAR) Urine pH 6.5 (4.5-7.5) Urine Specific [place] 1.010 (1.000-1.030) Urine Protein NEG (NEG) Urine Glucose (UA) NEG (NEG) Urine Ketones NEG (NEG) Urine Occult Blood 1+ (NEG) Urine Nitrite POS (NEG) Urine Bilirubin NEG (NEG) Urine Urobilinogen NEG (NEG) Urine Leukocyte Esterase MODERATE (NEG) Urine WBC (Auto) 10-30 /hpf (0-5) Urine RBC (Auto) 0-4 /hpf (0-4) Urine Hyaline Casts (Auto) 1-5 /lpf (0-5) Urine Epithelial Cells (Auto) >30 /lpf (0-5) Urine Bacteria (Auto) 4+ (NEG) Activated Partial Thromboplast Time 26.6 SECONDS (21.0-31.0) Partial Thromboplastin Ratio 1.0 Total Creatine Kinase 233 U/L (26-192) Test 03/25/17 21:35 03/27/17 06:41 03/27/17 12:31 03/27/17 22:35 Lactic Acid Level 1.1 mmol/L (0.4-2.0) White Blood Count 10.70 K/uL (4.8-10.8) Red Blood Count 3.37 M/uL (4.2-5.4) Hemoglobin 10.3 g/dL (12.0-16.0) Hematocrit 31.9 % (37-47) Mean Corpuscular Volume 94.7 fL (80-100) Mean Corpuscular Hemoglobin 30.6 pg (25-34) Mean Corpuscular Hemoglobin Concent 32.3 g/dl (32-36) Platelet Count 186 K/uL (130-400) Mean Platelet Volume 10.6 fL (7.4-10.4) Neutrophils (%) (Auto) 69.0 % Lymphocytes (%) (Auto) 16.4 % Monocytes (%) (Auto) 8.5 % Eosinophils (%) (Auto) 5.6 % Basophils (%) (Auto) 0.2 % Neutrophils # (Auto) 7.39 K/uL (1.4-6.5) Lymphocytes # (Auto) 1.75 K/uL (1.2-3.4) Monocytes # (Auto) 0.91 K/uL (0.11-0.59) Eosinophils # (Auto) 0.60 K/uL (0-0.5) Basophils # (Auto) 0.02 K/uL (0-0.2) RDW Standard Deviation 50.2 fL (36.4-46.3) RDW Coefficient of Variation 14.7 % (11.5-14.5) Immature Granulocyte % (Auto) 0.3 % Immature Granulocyte # (Auto) 0.03 K/uL (0.00-0.02) Est Creatinine Clear Calc Drug Dose 77.8 ml/min Pro-B-Type Natriuretic Peptide 711 pg/ml (0-900) Date/Time Source Procedure Growth Status 03/25/17 21:35 Blood Blood Culture - Preliminary NO GROWTH TO DATE. Resulted 03/27/17 17:20 Stool C.difficile Toxin B Gene (PCR) - Final No C. difficile toxin B gene detected Complete 03/23/17 21:30 Urine,Catheterized Urine Culture - Final Enterobacter Aerogenes Complete Last 24 Hours Test 03/27/17 06:41 03/27/17 10:55 White Blood Count 10.70 K/uL Red Blood Count 3.37 M/uL Hemoglobin 10.3 g/dL Hematocrit 31.9 % Mean Corpuscular Volume 94.7 fL Mean Corpuscular Hemoglobin 30.6 pg Mean Corpuscular Hemoglobin Concent 32.3 g/dl Platelet Count 186 K/uL Mean Platelet Volume 10.6 fL Neutrophils (%) (Auto) 69.0 % Lymphocytes (%) (Auto) 16.4 % Monocytes (%) (Auto) 8.5 % Eosinophils (%) (Auto) 5.6 % Basophils (%) (Auto) 0.2 % Neutrophils # (Auto) 7.39 K/uL Lymphocytes # (Auto) 1.75 K/uL Monocytes # (Auto) 0.91 K/uL Eosinophils # (Auto) 0.60 K/uL Basophils # (Auto) 0.02 K/uL RDW Standard Deviation 50.2 fL RDW Coefficient of Variation 14.7 % Immature Granulocyte % (Auto) 0.3 % Immature Granulocyte # (Auto) 0.03 K/uL Sodium Level 138 mmol/L Potassium Level 4.0 mmol/L Chloride Level 104 mmol/L Carbon Dioxide Level 29 mmol/L Anion Gap 5.0 mmol/L Blood Urea Nitrogen 10 mg/dl Creatinine 0.62 mg/dl Est Creatinine Clear Calc Drug Dose 77.8 ml/min Estimated GFR () 112.0 Estimated GFR (Non- 96.6 BUN/Creatinine Ratio 16.0 Random Glucose 94 mg/dl Calcium Level 8.2 mg/dl Arterial Blood pH 7.40 Arterial Blood Partial Pressure CO2 45 mmHg Arterial Blood Partial Pressure O2 52 mm/Hg Arterial Blood HCO3 27 mmol/L Arterial Blood Oxygen Saturation 86.4 % Arterial Blood Base Excess 2.0 mEq/L Arterial Blood Gas Delivery 7 L Sharif Test POS Diagnostic Imaging: CHEST CTA for PULMONARY ARTERIES CT DOSE: 427.69 mGy.cm HISTORY: Chest pain dyspnea TECHNIQUE: Multiaxial CT images of the chest were performed following the intravenous administration of contrast to evaluate the pulmonary arteries. Maximal intensity projection images were also obtained. COMPARISON STUDY: 01/13/2016 FINDINGS: Thoracic aorta shows mild left ischemic change. No evidence for aneurysm or dissection. Pulmonary vasculature enhances uniformly. There are no filling defects. There are several mediastinal and/or hilar nodes unaltered from the prior study. Calcified granulomatous-type change of the right hilum is stable. Emphysematous changes again noted with baseline chronic fibrotic change. There is a superimposed degree of interstitial edema. There are no true consolidative infiltrates. IMPRESSION: 1. Study is negative for pulmonary embolus. 2. Pulmonary edema superimposed upon pre-existing chronic fibrosis. Assessment & Plan 61 yoF presents with multiple falls at home and weakness s/p R knee injury with effusion s/p aspiration. Weakness thought 2/2 UTI and she has had symptoms of dysuria for the past two weeks. Uncertain cause of persistent malaise, so will keep here and see if things improve. Encouraged her to get out of bed frequently with assist. 1. Hypoxia 2/2 RML pneumonia poss from aspiration vs ILD flare. Oxygen status is worse and she was requiring a step up in therapy this morning with CXR revealing increased pulmonary edema. On exam she sounded dry with persistent crackles on the RML/RLL. Continues on the Zosyn-discussed the case with Dr. Perera who wanted to keep her on the Oxymask at a higher level than she was currently set in lieu of CPAP. Lasix was started with good response, and steroids were also started. Vanc was added to expand abx therapy as coughing appears more productive. She is a high aspiration risk because of her weakness and lack of motivation/ability inability to sit up easily on her own. For this reason she is NPO. 2. Weakness and multiple falls poss 2/2 infection with now two systems affected--symptoms ongoing for two weeks. Blood cultures remain negative. Cont plan as above. 3. R knee effusion-wrapped in full leg knee immobilizer, pain controlled. CT knee revealed no patellar fracture and Ortho tapped effusion. Pt is doing well post-procedure from this standpoint. 4. HTN- presented with hypertensive urgency. Hypotensive last night but is currently in normal range. 5. h/o CVA-aspiration precautions. [employer] examined and adjusted diet. 6. IBS-c-diff is pending but patient has not had BM since admission. Of note, she was on Librax as an outpatient, which has a benzo component. Her persistent malaise that was nonspecific was though possibly 2/2 benzo withdrawal as she reports being on this long-term. The chlordiapoxide part was restarted, however, she is better on the abx so the malaise was most likely 2/2 infection. With her questionable respiratory status, many PO meds were held, including this one. 7. Spina bifida 8. Anemia-no acute indication for transfusion and no active bleeding. Cont to monitor DVT prophylaxis Lovenox subcutaneous Full code Dispo-to PCU for better monitoring, needs acute inpatient rehab per PT evaluation Kenna Ornelas DO [facility] Hospitalist Consultants: Ortho, Pulm, [employer] Current Inpatient Medications: Current Inpatient Medications Medications (Trade) Dose Ordered Sig/Bishnu Route Start Time Stop Time Status Last Admin Dose Admin Enoxaparin Sodium (Lovenox Inj) 40 mg Q24H SQ 03/24/17 09:00 04/23/17 08:59 03/27/17 08:03 40 MG Acetaminophen (Tylenol Tab) 650 mg Q4H PRN PO 03/24/17 00:30 04/23/17 00:29 03/26/17 18:32 650 MG Ondansetron HCl (Zofran Inj) 4 mg Q6H PRN IV 03/24/17 00:30 04/23/17 00:29 Tramadol HCl (Ultram Tab) 25 mg Q6H PRN PO 03/24/17 00:30 04/23/17 00:29 03/26/17 13:46 25 MG Aspirin (Ecotrin Tab) 81 mg DAILY PO 03/24/17 09:00 04/23/17 08:59 03/27/17 07:55 81 MG Famotidine (Pepcid Tab) 20 mg QPM PO 03/24/17 21:00 04/23/17 20:59 03/26/17 19:35 20 MG Nortriptyline HCl (Pamelor Cap) 25 mg QAM PO 03/24/17 09:00 04/23/17 08:59 03/27/17 07:56 25 MG Rosuvastatin Calcium (Crestor Tab) 20 mg QPM PO 03/24/17 21:00 04/23/17 20:59 03/26/17 19:35 20 MG Sertraline HCl (Zoloft Tab) 25 mg DAILY PO 03/24/17 09:00 04/23/17 08:59 03/27/17 07:56 25 MG Sertraline HCl (Zoloft Tab) 50 mg QPM PO 03/24/17 21:00 04/23/17 20:59 03/26/17 19:35 50 MG Lactobacillus Acidophilus (Floranex Tab) 4 tab DAILY PO 03/24/17 09:00 04/23/17 08:59 03/27/17 08:24 4 TAB Ipratropium [place] (Atrovent 0.02% 0.5MG/2.5ML Neb) 0.5 mg Q4H PRN INH 03/24/17 01:30 04/23/17 01:29 Levalbuterol (Xopenex 1.25MG/ 0.5ML Neb) 1.25 mg Q4H PRN INH 03/24/17 01:30 04/23/17 01:29 Miscellaneous Information (Order Awaiting Action) 1 ea QS N/A 03/24/17 08:00 04/23/17 07:59 Ketorolac Tromethamine (Toradol Inj) 15 mg Q6H PRN IV. 03/25/17 20:00 03/30/17 19:59 Metoprolol Tartrate (Lopressor Tab) 12.5 mg BID PO 03/26/17 09:00 04/23/17 08:59 03/27/17 09:55 12.5 MG Piperacillin Sod/ Tazobactam Sod (Consult) 1 ea UD PRN N/A 03/25/17 21:45 04/24/17 21:44 Guaifenesin (Mucinex Contr Rel Tab) 600 mg Q12 PO 03/26/17 09:00 04/25/17 08:59 03/27/17 07:56 600 MG Budesonide (Pulmicort Inhaler) 2 puffs BID INH 03/26/17 09:00 04/25/17 08:59 03/27/17 07:53 2 PUFFS Ipratropium [place] (Atrovent 0.02% 0.5MG/2.5ML Neb) 0.5 mg Q6R INH 03/26/17 03:00 04/25/17 02:59 03/27/17 07:14 0.5 MG Levalbuterol (Xopenex 1.25MG/ 0.5ML Neb) 1.25 mg Q6R INH 03/26/17 03:00 04/25/17 02:59 03/27/17 07:14 1.25 MG Piperacillin Sod/ Tazobactam Sod 3.375 gm/Dextrose 115 ml @ 28.75 mls/ hr Q8@0400,1200,2000 IV 03/26/17 04:00 04/02/17 03:59 03/27/17 04:07 28.75 MLS/HR Chlordiazepoxide (Librium Cap) 5 mg DAILY PO 03/26/17 09:00 04/25/17 08:59 03/27/17 08:05 5 MG Polyethylene (Miralax Powder Packet) 17 gm DAILY PO 03/26/17 10:00 04/25/17 09:59 03/26/17 11:36 17 GM
[2017-03-27 23:27] LABS: ARTERIAL BLD GAS O2 SATURATION 94.4 % (90-95); ARTERIAL BLOOD GAS BASE EXCESS 5.5 mEq/L (-9-1.8); ARTERIAL BLOOD GAS HCO3 30 mmol/L (19-24); ARTERIAL BLOOD GAS PO2 72 mm/Hg (80-95); ARTERIAL BLOOD GAS pH 7.46 (7.35-7.45)
[2017-03-27 23:28] LABS: ALLEN TEST POS (POS); O2 ADMINISTRATION 16 L
[2017-03-27 23:43] LABS: BUN/CREATININE RATIO 17.8 (10-20); CALCIUM 8.9 mg/dl (8.5-10.1); CREATININE 0.74 mg/dl (0.60-1.20); MAGNESIUM 2.1 mg/dl (1.8-2.4); POTASSIUM 3.5 mmol/L (3.5-5.1)
[2017-03-27] MEDS ORDERED: POTASSIUM CHLORIDE 10 MEQ TABCR PO STA (23:49)
[2017-03-28] VITALS (16 sets, daily range): BP systolic 96–153; BP diastolic 60–89; PULSE 78–105; TEMP 36.4–37; O2SAT 90–100
[2017-03-28] MEDS: VANCOMYCIN INJ 900 MG in SODIUM CHLORIDE 0.9% 250ML 250 ML IV SCH ×2 (00:46→12:17)
[2017-03-28] MEDS: IPRATROPIUM BROMIDE NEB SOLN 0.02% 2.5 ML VIAL INH SCH ×4 (02:11→19:18)
[2017-03-28] MEDS: LEVALBUTEROL 1.25MG/0.5ML NEB INH SCH ×4 (02:11→19:18)
[2017-03-28] MEDS: METHYLPREDNISOLONE IV 40 MG in SYRINGE 0 ML IV SCH (04:39)
[2017-03-28] MEDS: PIPERACILL/TAZOBAC IV 3.375 GM in DEXTROSE 5% 100ML IV SCH ×3 (04:39→19:41)
[2017-03-28 07:59] LABS: HEMATOCRIT 33.6 % (37-47); MEAN CELL VOLUME 92.1 fL (80-100); MEAN CORPUSCULAR HEMOGLOBIN 30.1 pg (25-34); MEAN CORPUSCULAR HGB CONC 32.7 g/dl (32-36); MEAN PLATELET VOLUME 10.4 fL (7.4-10.4); PLATELET COUNT 227 K/uL (130-400); RED BLOOD COUNT 3.65 M/uL (4.2-5.4); WHITE BLOOD COUNT 6.01 K/uL (4.8-10.8)
[2017-03-28 08:29] LABS: BUN/CREATININE RATIO 21.8 (10-20); CALCIUM 9.4 mg/dl (8.5-10.1); CREATININE 0.65 mg/dl (0.60-1.20); POTASSIUM 3.9 mmol/L (3.5-5.1)
[2017-03-28] MEDS: FUROSEMIDE INJ 40 MG in SYRINGE 0 ML IV SCH ×2 (09:09→17:18)
[2017-03-28] MEDS: BUDESONIDE 90 MCG INH INH SCH ×2 (09:09→20:34)
--- NOTE | 2017-03-28 09:52 | Pulmonology Progress Note ---
Pulmonary Progress Note Date of Service Mar 28, 2017. Attending Dr. Perera Subjective The patient remains short of breath. She thinks she feels a little better. BiPAP was tried yesterday. She did very poorly. Apparently she only kept the BiPAP on for 5 minutes. Her cough is mild. It is nonproductive. Denies chest pain. Objective The patient appeared comfortable at rest. She did have the Oxymask in place I believe at 10 L.. Temperature is 36.7. Heart rate was 97. Blood pressure 153/ 78. The respiratory rate was 18 breaths per minute. Auscultation reveals diffuse rales throughout. They seem relatively dry to auscultation. Current oxygen saturation 100%. The abdomen was soft and nontender. Extremities showed no edema. The patient did have a CAT scan of the chest done yesterday. There was no pulmonary emboli. The report indicated pulmonary edema superimposed on pulmonary fibrosis. I am not certain that that is the case. She did diurese well yesterday with 2300 mL sound. However her BNP would be within normal limits at 711. The CAT scan abnormalities are much greater on the right than the left and I think it is very difficult to exclude superimposed infection. She did have a blood gas done on 11:14 PM last evening. The pH was 7.46 with a PCO2 of 43 and a PO2 of 72. The exact delivery device she was on is not clear. I suspect it was the oxymask. Assessment & Plan Impressions: #1 respiratory failure with hypoxia #2 interstitial lung disease #3 emphysema #4 probable right lung pneumonia but with inability to exclude CHF #5 UTI with Enterobacter Comments and recommendations: Patient's status is about the same. She is still shunting quite a bit but seems to be overall a little better in that regard. She is on diuretic therapy and we will see how she responds. As noted above I am reluctant to conclude that this is CHF on her BMP is normal. I believe we can decrease the methylprednisolone down to 20 mg IV every 8 hours. I would still continue the antibiotic therapy for now. I would suggest an echo if this has not been done. Data Medications: Current Inpatient Medications Medications (Trade) Dose Ordered Sig/Bishnu Route Start Time Stop Time Status Last Admin Dose Admin Enoxaparin Sodium (Lovenox Inj) 40 mg Q24H SQ 03/24/17 09:00 04/23/17 08:59 73/17 08:03 40 MG Ondansetron HCl (Zofran Inj) 4 mg Q6H PRN IV 03/24/17 00:30 04/23/17 00:29 Aspirin (Ecotrin Tab) 81 mg DAILY PO 03/24/17 09:00 04/23/17 08:59 03/27/17 07:55 81 MG Ipratropium [place] (Atrovent 0.02% 0.5MG/2.5ML Neb) 0.5 mg Q4H PRN INH 03/24/17 01:30 04/23/17 01:29 Levalbuterol (Xopenex 1.25MG/ 0.5ML Neb) 1.25 mg Q4H PRN INH 03/24/17 01:30 04/23/17 01:29 Miscellaneous Information (Order Awaiting Action) 1 ea QS N/A 03/24/17 08:00 04/23/17 07:59 03/27/17 22:52 1 EA Piperacillin Sod/ Tazobactam Sod (Consult) 1 ea UD PRN N/A 03/25/17 21:45 04/24/17 21:44 Budesonide (Pulmicort Inhaler) 2 puffs BID INH 03/26/17 09:00 04/25/17 08:59 03/28/17 09:09 2 PUFFS Ipratropium [place] (Atrovent 0.02% 0.5MG/2.5ML Neb) 0.5 mg Q6R INH 03/26/17 03:00 04/25/17 02:59 03/28/17 07:02 0.5 MG Levalbuterol (Xopenex 1.25MG/ 0.5ML Neb) 1.25 mg Q6R INH 03/26/17 03:00 04/25/17 02:59 03/28/17 07:02 1.25 MG Piperacillin Sod/ Tazobactam Sod 3.375 gm/Dextrose 115 ml @ 28.75 mls/ hr Q8@0400,1200,2000 IV 03/26/17 04:00 04/02/17 03:59 03/28/17 04:39 28.75 MLS/HR Vancomycin HCl (Consult) 1 ea UD PRN N/A 03/27/17 12:00 04/26/17 11:59 Methylprednisolone Sodium Succinate 40 mg/Syringe 0.64 ml @ 1.5 mls/min Q8H IV 03/27/17 13:00 04/26/17 12:59 03/28/17 04:39 1.5 MLS/MIN Acetaminophen 650 mg/Empty Bag 65 ml @ 260 mls/hr Q6H PRN IV 03/27/17 12:15 04/26/17 12:14 Ioversol (Optiray 320) 100 ml UD PRN IV 03/27/17 13:00 03/31/17 12:59 Vancomycin HCl 900 mg/Sodium Chloride 268 ml @ 125 mls/hr Q12H IV 03/28/17 00:00 04/04/17 00:00 03/28/17 00:46 125 MLS/HR Furosemide 40 mg/ Syringe 4 ml @ 4 mls/min BID@0900,1700 IV 03/27/17 17:00 04/26/17 16:59 03/28/17 09:09 4 MLS/MIN Vital Signs: Date Time Temp Pulse Resp B/P (MAP) Pulse Ox O2 Delivery O2 Flow Rate FiO2 03/28/17 08:00 100 Oxymask 10.0 03/28/17 07:02 97 18 100 Mask 15.0 03/28/17 04:01 90 Oxymask 15.0 03/28/17 04:00 36.7 98 19 153/78 (103) 91 BiPAP 03/28/17 02:12 95 18 91 Mask 15.0 03/28/17 00:15 36.7 95 19 96/60 (72) 91 Oxymask 03/28/17 00:11 90 Oxymask 15.0 03/27/17 20:10 92 95 60 03/27/17 20:09 92 24 95 BiPAP/CPAP 60 03/27/17 20:05 CPAP 60 03/27/17 19:32 36.5 94 20 126/77 (93) 91 Oxymask 13.0 03/27/17 19:15 93 95 60 03/27/17 16:14 Oxymask 10.0 03/27/17 15:41 36.7 103 22 106/71 (83) 95 Oxymask 10.0 03/27/17 14:19 103 16 91 Mask 6.0 03/27/17 12:53 109 24 92 10.0 03/27/17 09:56 102 119/67 (84) Laboratory Results: Last 24 Hours Test 03/27/17 10:55 03/27/17 12:31 03/27/17 23:14 03/27/17 23:15 Arterial Blood pH 7.40 7.46 Arterial Blood Partial Pressure CO2 45 mmHg 43 mmHg Arterial Blood Partial Pressure O2 52 mm/Hg 72 mm/Hg Arterial Blood HCO3 27 mmol/L 30 mmol/L Arterial Blood Oxygen Saturation 86.4 % 94.4 % Arterial Blood Base Excess 2.0 mEq/L 5.5 mEq/L Arterial Blood Gas Delivery 7 L 16 L Sharif Test POS POS Pro-B-Type Natriuretic Peptide 711 pg/ml Sodium Level 137 mmol/L Potassium Level 3.5 mmol/L Chloride Level 96 mmol/L Carbon Dioxide Level 31 mmol/L Anion Gap 10.0 mmol/L Blood Urea Nitrogen 13 mg/dl Creatinine 0.74 mg/dl Est Creatinine Clear Calc Drug Dose 65.2 ml/min Estimated GFR () 100.6 Estimated GFR (Non- 86.8 BUN/Creatinine Ratio 17.8 Random Glucose 177 mg/dl Calcium Level 8.9 mg/dl Magnesium Level 2.1 mg/dl Test 03/28/17 07:15 White Blood Count 6.01 K/uL Red Blood Count 3.65 M/uL Hemoglobin 11.0 g/dL Hematocrit 33.6 % Mean Corpuscular Volume 92.1 fL Mean Corpuscular Hemoglobin 30.1 pg Mean Corpuscular Hemoglobin Concent 32.7 g/dl RDW Standard Deviation 48.8 fL RDW Coefficient of Variation 14.4 % Platelet Count 227 K/uL Mean Platelet Volume 10.4 fL Sodium Level 136 mmol/L Potassium Level 3.9 mmol/L Chloride Level 99 mmol/L Carbon Dioxide Level 29 mmol/L Anion Gap 8.0 mmol/L Blood Urea Nitrogen 14 mg/dl Creatinine 0.65 mg/dl Est Creatinine Clear Calc Drug Dose 74.2 ml/min Estimated GFR () 110.3 Estimated GFR (Non- 95.2 BUN/Creatinine Ratio 21.8 Random Glucose 139 mg/dl Calcium Level 9.4 mg/dl
--- NOTE | 2017-03-28 10:14 | Progress Note ---
Internal Med Progress Note Date of Service: Mar 28, 2017. Provider Documentation: SUBJECTIVE: Patient does c/o diarrhea as received laxatives while in hospital SOB has improved than yesterday Cough +, No fever, chills, chest pain, vomiting, nausea OBJECTIVE: Vital Signs-as noted below Exam: GEN: AAXO2, Not in distress , but on oxy mask HEENT: Atraumatic, normocephalic CARDIO: S1, S2 normal LUNGS: Few crackles heard at base, no wheezing ABD: soft, non-tender, non-distended, no rebound or guarding, +BS, no CVA tenderness EXTREMITY: S/P right knee effusion- immobilizer present, no pedal edema Lab data as noted below. CHEST CTA for PULMONARY ARTERIES 1. Study is negative for pulmonary embolus. 2. Pulmonary edema superimposed upon pre-existing chronic fibrosis. ASSESSMENT & PLAN: Assessment & Plan : 61 yo F presents with multiple falls at home and weakness s/p Rt knee injury with effusion s/p aspiration. Weakness thought 2/2 UTI and she has had symptoms of dysuria for the past two weeks. While in hospital, continued to have malaise , became hypoxic, developed pneumonia. ACUTE HYPOXIC RESPIRATORY FAILURE -Possibilities considered: ILD Flare, Probable right sided pneumonia , CHF considered but clinically not over loaded, BNP 700s, though CT chest shows pulmonary edema -On oxymask---> try to wean to oxygen nasal cannula -On IV solumedrol- tapered down to 20 mg q 8 hours, IV Lasix 40 mg BID, IV antibiotics -Pulmonary on board- Appreciate inputs -Work up- CT chest , Speech evaluation ordered GENERALIZED WEAKNESS/PHYSICAL DECONDITIONING -Multiple falls prior to admission. -PT/OT ordered S/P RIGHT KNEE EFFUSION with hx of OA/DJD -S/P Tapping by ortho done on 03/25/17 -Full leg knee immobilizer placed per ortho- weight bearing as tolerated, pain controlled -CT knee- no patellar fracture HTN- Presented with urgency. -Stable now HX OF CVA -Stable -Continue with aspiration precautions -Speech therapy evaluated- appreciate inputs IBS -C diff negative, has diarrhea due to laxatives SPINA BIFIDA ANEMIA, CHRONIC -Stable DVT prophylaxis Lovenox subcutaneous FULL CODE DISPOSITION -PT/OT ordered -Continue with tele monitoring Vital Signs: Date Time Temp Pulse Resp B/P (MAP) Pulse Ox O2 Delivery O2 Flow Rate FiO2 03/28/17 08:00 100 Oxymask 10.0 03/28/17 07:02 97 18 100 Mask 15.0 03/28/17 04:01 90 Oxymask 15.0 03/28/17 04:00 36.7 98 19 153/78 (103) 91 BiPAP 03/28/17 02:12 95 18 91 Mask 15.0 03/28/17 00:15 36.7 95 19 96/60 (72) 91 Oxymask 03/28/17 00:11 90 Oxymask 15.0 03/27/17 20:10 92 95 60 03/27/17 20:09 92 24 95 BiPAP/CPAP 60 03/27/17 20:05 CPAP 60 03/27/17 19:32 36.5 94 20 126/77 (93) 91 Oxymask 13.0 03/27/17 19:15 93 95 60 03/27/17 16:14 Oxymask 10.0 03/27/17 15:41 36.7 103 22 106/71 (83) 95 Oxymask 10.0 03/27/17 14:19 103 16 91 Mask 6.0 03/27/17 12:53 109 24 92 10.0 Lab Results: Results Past 24 Hours Test 03/27/17 10:55 03/27/17 12:31 03/27/17 23:14 03/27/17 23:15 Range/Units Arterial Blood pH 7.40 7.46 7.35-7.45 Arterial Blood Partial Pressure CO2 45 43 35-46 mmHg Arterial Blood Partial Pressure O2 52 72 80-95 mm/Hg Arterial Blood HCO3 27 30 19-24 mmol/L Arterial Blood Oxygen Saturation 86.4 94.4 90-95 % Arterial Blood Base Excess 2.0 5.5 -9-1.8 mEq/L Arterial Blood Gas Delivery 7 L 16 L Sharif Test POS POS POS Pro-B-Type Natriuretic Peptide 711 0-900 pg/ml Sodium Level 137 136-145 mmol/L Potassium Level 3.5 3.5-5.1 mmol/L Chloride Level 96 98-107 mmol/L Carbon Dioxide Level 31 21-32 mmol/L Anion Gap 10.0 3-11 mmol/L Blood Urea Nitrogen 13 7-18 mg/dl Creatinine 0.74 0.60-1.20 mg/dl Est Creatinine Clear Calc Drug Dose 65.2 ml/min Estimated GFR () 100.6 Estimated GFR (Non- 86.8 BUN/Creatinine Ratio 17.8 10-20 Random Glucose 177 70-99 mg/dl Calcium Level 8.9 8.5-10.1 mg/dl Magnesium Level 2.1 1.8-2.4 mg/dl Test 03/28/17 07:15 Range/Units White Blood Count 6.01 4.8-10.8 K/uL Red Blood Count 3.65 4.2-5.4 M/uL Hemoglobin 11.0 12.0-16.0 g/dL Hematocrit 33.6 37-47 % Mean Corpuscular Volume 92.1 80-100 fL Mean Corpuscular Hemoglobin 30.1 25-34 pg Mean Corpuscular Hemoglobin Concent 32.7 32-36 g/dl RDW Standard Deviation 48.8 36.4-46.3 fL RDW Coefficient of Variation 14.4 11.5-14.5 % Platelet Count 227 130-400 K/uL Mean Platelet Volume 10.4 7.4-10.4 fL Sodium Level 136 136-145 mmol/L Potassium Level 3.9 3.5-5.1 mmol/L Chloride Level 99 98-107 mmol/L Carbon Dioxide Level 29 21-32 mmol/L Anion Gap 8.0 3-11 mmol/L Blood Urea Nitrogen 14 7-18 mg/dl Creatinine 0.65 0.60-1.20 mg/dl Est Creatinine Clear Calc Drug Dose 74.2 ml/min Estimated GFR () 110.3 Estimated GFR (Non- 95.2 BUN/Creatinine Ratio 21.8 10-20 Random Glucose 139 70-99 mg/dl Calcium Level 9.4 8.5-10.1 mg/dl Microbiology Results 03/27/17 C.difficile Toxin B Gene (PCR) - Final, Complete No C. difficile toxin B gene detected 03/27/17 C.difficile Toxin B Gene (PCR) - Final, Complete No C. difficile toxin B gene detected
[2017-03-28] MEDS: ASPIRIN 81 MG ECTAB PO SCH (11:04)
[2017-03-28] MEDS: LOPERAMIDE HCL 2 MG CAP PO PRN ×2 (11:05→21:19)
[2017-03-28] MEDS: ENOXAPARIN 40 MG/0.4 ML SYR SQ SCH (11:05)
[2017-03-28] MEDS: METHYLPREDNISOLONE IV 20 MG in SYRINGE 0 ML IV SCH ×2 (12:17→20:36)
[2017-03-28] MEDS ORDERED: VANCOMYCIN TROUGH SCH (23:30)
[2017-03-29] VITALS (14 sets, daily range): BP systolic 111–148; BP diastolic 68–78; PULSE 94–111; TEMP 36.4–36.7; O2SAT 89–97
[2017-03-29] MEDS: VANCOMYCIN INJ 900 MG in SODIUM CHLORIDE 0.9% 250ML 250 ML IV SCH (00:03)
[2017-03-29] MEDS: LEVALBUTEROL 1.25MG/0.5ML NEB INH SCH ×4 (02:25→19:49)
[2017-03-29] MEDS: IPRATROPIUM BROMIDE NEB SOLN 0.02% 2.5 ML VIAL INH SCH ×4 (02:25→19:49)
[2017-03-29] MEDS: PIPERACILL/TAZOBAC IV 3.375 GM in DEXTROSE 5% 100ML IV SCH (03:58)
[2017-03-29] MEDS: METHYLPREDNISOLONE IV 20 MG in SYRINGE 0 ML IV SCH ×2 (04:57→20:41)
[2017-03-29] MEDS: BUDESONIDE 90 MCG INH INH SCH ×2 (07:48→20:39)
[2017-03-29] MEDS: ENOXAPARIN 40 MG/0.4 ML SYR SQ SCH (07:48)
[2017-03-29] MEDS: LOPERAMIDE HCL 2 MG CAP PO PRN ×2 (07:48→20:38)
[2017-03-29] MEDS: ASPIRIN 81 MG ECTAB PO SCH (07:48)
[2017-03-29] MEDS: FUROSEMIDE INJ 40 MG in SYRINGE 0 ML IV SCH (08:00)
--- NOTE | 2017-03-29 10:46 | Progress Note ---
Internal Med Progress Note Date of Service: Mar 29, 2017. Provider Documentation: SUBJECTIVE : Patient is feeling much better today. SOB has improved. Not much coughing. No fever, chills, chest pain, vomiting, nausea. On 3 L oxygen OBJECTIVE : Vital Signs-as noted below Exam: GEN: AAXO2, Not in distress HEENT: Atraumatic, normocephalic CARDIO: S1, S2 normal LUNGS: Few crackles heard at base, no wheezing ABD: soft, non-tender, non-distended, no rebound or guarding, +BS, no CVA tenderness EXTREMITY: S/P right knee effusion- immobilizer present, no pedal edema Lab data as noted below. CHEST CTA for PULMONARY ARTERIES 1. Study is negative for pulmonary embolus. 2. Pulmonary edema superimposed upon pre-existing chronic fibrosis. ASSESSMENT & PLAN: Assessment & Plan : 61 yo F presents with multiple falls at home and weakness s/p Rt knee injury with effusion s/p aspiration. Weakness thought 2/2 UTI and she has had symptoms of dysuria for the past two weeks. While in hospital, continued to have malaise , became hypoxic, developed pneumonia. ACUTE ON CHRONIC HYPOXIC RESPIRATORY FAILURE- Improved -Possibilities considered: ILD Flare, Probable right sided pneumonia , CHF considered but clinically not over loaded, BNP 700s, though CT chest shows pulmonary edema. -S/P Oxymask and weaned down to 3 L oxygen (at home: 2 L PRN) -On IV solumedrol - 20 mg q 8 hours, IV Lasix 40 mg BID --> Change to PO lasix 40 daily , IV antibiotics--> Change to levofloxacin -Pulmonary on board - Appreciate inputs -Work up- CT chest , Speech evaluation ordered GENERALIZED WEAKNESS/PHYSICAL DECONDITIONING -Multiple falls prior to admission. -PT/OT ordered S/P RIGHT KNEE EFFUSION with hx of OA/DJD -S/P Tapping by ortho done on 03/25/17 -Full leg knee immobilizer placed per ortho- weight bearing as tolerated, pain controlled -CT knee- no patellar fracture HTN- Presented with urgency. -Stable now HX OF CVA -Stable -Continue with aspiration precautions -Speech therapy evaluated- appreciate inputs IBS -C diff negative, has diarrhea due to laxatives SPINA BIFIDA ANEMIA, CHRONIC -Stable DVT prophylaxis Lovenox subcutaneous FULL CODE DISPOSITION -PT/OT ordered Vital Signs: Date Time Temp Pulse Resp B/P (MAP) Pulse Ox O2 Delivery O2 Flow Rate FiO2 03/29/17 08:07 36.5 107 24 121/73 (89) 96 Nasal Cannula 3.0 03/29/17 08:00 95 Nasal Cannula 3.0 03/29/17 07:33 103 18 97 Nasal Cannula 5.0 03/29/17 04:00 94 Nasal Cannula 5.0 03/29/17 03:55 36.7 102 18 136/68 (90) 94 Nasal Cannula 5.0 03/29/17 02:25 94 18 94 Nasal Cannula 5.0 03/29/17 00:01 94 Nasal Cannula 5.0 03/28/17 23:53 37.0 102 19 119/69 (86) 94 Nasal Cannula 5.0 03/28/17 20:00 91 Nasal Cannula 5.0 03/28/17 19:18 105 16 93 Nasal Cannula 5.0 03/28/17 19:10 36.5 103 18 101/67 (78) 91 Nasal Cannula 5.0 03/28/17 16:00 96 Oxymask 8.0 03/28/17 15:07 36.5 103 16 121/73 (89) 91 7.0 03/28/17 14:01 78 18 97 Mask 7.0 03/28/17 12:00 97 Oxymask 8.0 03/28/17 12:00 36.4 105 17 113/68 (83) 100 Oxymask 8.0 Lab Results: Results Past 24 Hours Test 03/28/17 23:20 Range/Units Vancomycin Level Trough 14.5 SEE COMMENT mcg/ml Microbiology Results 03/28/17 MRSA DNA Surveillance Screen - Final, Complete Specimen Positive for MRSA by DNA Probe
--- NOTE | 2017-03-29 12:57 | Pulmonology Progress Note ---
Pulmonary Progress Note Date of Service Mar 29, 2017. Attending Dr. Perera Subjective The patient's breathing is quite a bit better. She feels much less short of breath. Her oxygen needs have diminished substantially. She is now down to 3 L nasal cannula. Yesterday she had been on an oxygen mask with 15 L. She denies chest pains. She has no cough. She is having frequent loose BMs. Objective The patient is a 61-year-old female who looks older than her chronologic age. She was cooperative alert and oriented. ENT exam is unremarkable. Temperature today is 36.4. Heart rate is 104. Blood pressure is 111/74. Auscultation of lung mora Continues to show dry rales at both lung bases. Respiratory rate was 22 breaths per minute. The oxygen saturation is 93% on just 3 L nasal cannula. The abdomen is soft. Bowel sounds were active. The patient was in the sitting position my examined her. Chemistry studies were ordered for today are still pending. Assessment & Plan Impressions: #1 respiratory failure with hypoxia #2 interstitial lung disease #3 emphysema #4 probable right lung pneumonia but with inability to exclude CHF #5 UTI with Enterobacter Comments and recommendations: The patient's clinical status is much improved. This is most notable with the significant decrease in oxygen needs. She has had A modest diuresis over the prior 3 days. This would total almost 3 L more out than in. This likely reflects improvement in CHF and possibly underlying pneumonia as well. The BNP however had been normal and this calls into question how much was CHF. Nonetheless she is much better. I do suggest decreasing the steroids further and then soon thereafter switching to orals as long as she stays continuously improved. Data Medications: Current Inpatient Medications Medications (Trade) Dose Ordered Sig/Bishnu Route Start Time Stop Time Status Last Admin Dose Admin Enoxaparin Sodium (Lovenox Inj) 40 mg Q24H SQ 03/24/17 09:00 04/23/17 08:59 03/29/17 07:48 40 MG Ondansetron HCl (Zofran Inj) 4 mg Q6H PRN IV 03/24/17 00:30 04/23/17 00:29 Aspirin (Ecotrin Tab) 81 mg DAILY PO 03/24/17 09:00 04/23/17 08:59 03/29/17 07:48 81 MG Ipratropium [place] (Atrovent 0.02% 0.5MG/2.5ML Neb) 0.5 mg Q4H PRN INH 03/24/17 01:30 04/23/17 01:29 Levalbuterol (Xopenex 1.25MG/ 0.5ML Neb) 1.25 mg Q4H PRN INH 03/24/17 01:30 04/23/17 01:29 Miscellaneous Information (Order Awaiting Action) 1 ea QS N/A 03/24/17 08:00 04/23/17 07:59 03/27/17 22:52 1 EA Budesonide (Pulmicort Inhaler) 2 puffs BID INH 03/26/17 09:00 04/25/17 08:59 03/29/17 07:48 2 PUFFS Ipratropium [place] (Atrovent 0.02% 0.5MG/2.5ML Neb) 0.5 mg Q6R INH 03/26/17 03:00 04/25/17 02:59 03/29/17 07:32 0.5 MG Levalbuterol (Xopenex 1.25MG/ 0.5ML Neb) 1.25 mg Q6R INH 03/26/17 03:00 04/25/17 02:59 03/29/17 07:32 1.25 MG Acetaminophen 650 mg/Empty Bag 65 ml @ 260 mls/hr Q6H PRN IV 03/27/17 12:15 04/26/17 12:14 Ioversol (Optiray 320) 100 ml UD PRN IV 03/27/17 13:00 03/31/17 12:59 Methylprednisolone Sodium Succinate 20 mg/Syringe 0.32 ml @ 1.5 mls/min Q8H IV 03/28/17 13:00 04/26/17 12:59 03/29/17 04:57 1.5 MLS/MIN Loperamide HCl (Imodium Cap) 2 mg Q6H PRN PO 03/28/17 10:15 04/27/17 10:14 03/29/17 07:48 2 MG Furosemide (Lasix Tab) 40 mg QAM PO 03/30/17 09:00 04/29/17 08:59 Levofloxacin (Levaquin Tab) 750 mg DAILY@11 PO 03/29/17 11:00 04/05/17 10:59 Vital Signs: Date Time Temp Pulse Resp B/P (MAP) Pulse Ox O2 Delivery O2 Flow Rate FiO2 03/29/17 12:00 Nasal Cannula 3.0 03/29/17 11:51 36.4 104 22 111/74 (86) 93 Nasal Cannula 3.0 03/29/17 08:07 36.5 107 24 121/73 (89) 96 Nasal Cannula 3.0 03/29/17 08:00 95 Nasal Cannula 3.0 03/29/17 07:33 103 18 97 Nasal Cannula 5.0 03/29/17 04:00 94 Nasal Cannula 5.0 03/29/17 03:55 36.7 102 18 136/68 (90) 94 Nasal Cannula 5.0 03/29/17 02:25 94 18 94 Nasal Cannula 5.0 03/29/17 00:01 94 Nasal Cannula 5.0 03/28/17 23:53 37.0 102 19 119/69 (86) 94 Nasal Cannula 5.0 03/28/17 20:00 91 Nasal Cannula 5.0 03/28/17 19:18 105 16 93 Nasal Cannula 5.0 03/28/17 19:10 36.5 103 18 101/67 (78) 91 Nasal Cannula 5.0 03/28/17 16:00 96 Oxymask 8.0 03/28/17 15:07 36.5 103 16 121/73 (89) 91 7.0 03/28/17 14:01 78 18 97 Mask 7.0 Laboratory Results: Last 24 Hours Test 03/28/17 23:20 03/29/17 12:35 Vancomycin Level Trough 14.5 mcg/ml
[2017-03-29 13:04] LABS: BUN/CREATININE RATIO 22.8 (10-20); CALCIUM 9.1 mg/dl (8.5-10.1); CREATININE 0.76 mg/dl (0.60-1.20); POTASSIUM 3.5 mmol/L (3.5-5.1)
[2017-03-29] MEDS: LEVOFLOXACIN 750 MG TAB PO SCH (13:43)
[2017-03-30] VITALS (12 sets, daily range): BP systolic 119–135; BP diastolic 75–78; PULSE 101–113; TEMP 36.5–36.8; O2SAT 90–95
[2017-03-30] MEDS: IPRATROPIUM BROMIDE NEB SOLN 0.02% 2.5 ML VIAL INH SCH ×4 (01:37→19:56)
[2017-03-30] MEDS: LEVALBUTEROL 1.25MG/0.5ML NEB INH SCH ×4 (01:37→19:56)
[2017-03-30] MEDS: LOPERAMIDE HCL 2 MG CAP PO PRN ×3 (02:36→16:28)
[2017-03-30 06:26] LABS: BASO % 0.1 %; BASO ABS # 0.01 K/uL (0-0.2); COMPLETE YES; EOS % 0.3 %; IG% 0.3 %; LYMPH % 15.3 %; MEAN CELL VOLUME 92.4 fL (80-100); MEAN CORPUSCULAR HEMOGLOBIN 30.7 pg (25-34); MEAN CORPUSCULAR HGB CONC 33.2 g/dl (32-36); MEAN PLATELET VOLUME 10.3 fL (7.4-10.4); MONO % 10.3 %; NEUT % 73.7 %; PLATELET COUNT 266 K/uL (130-400); RED BLOOD COUNT 3.68 M/uL (4.2-5.4); WHITE BLOOD COUNT 11.12 K/uL (4.8-10.8)
[2017-03-30 06:41] LABS: BUN/CREATININE RATIO 21.5 (10-20); CALCIUM 8.9 mg/dl (8.5-10.1); CREATININE 0.67 mg/dl (0.60-1.20); POTASSIUM 3.6 mmol/L (3.5-5.1)
[2017-03-30] MEDS: ENOXAPARIN 40 MG/0.4 ML SYR SQ SCH (07:48)
[2017-03-30] MEDS: ASPIRIN 81 MG ECTAB PO SCH (07:48)
[2017-03-30] MEDS: FUROSEMIDE 40 MG TAB PO SCH (07:48)
[2017-03-30] MEDS: BUDESONIDE 90 MCG INH INH SCH ×2 (07:48→20:33)
--- NOTE | 2017-03-30 09:11 | Progress Note ---
Internal Med Progress Note Date of Service: Mar 30, 2017. Provider Documentation: SUBJECTIVE : Patient is feeling better. Couldnt sleep at night. SOB has improved. Coughing present but not bringing up much. No fever, chills, chest pain, vomiting, nausea. On 3 L oxygen OBJECTIVE : Vital Signs-as noted below Exam: GEN: AAXO2, Not in distress HEENT: Atraumatic, normocephalic CARDIO: S1, S2 normal LUNGS: Few crackles heard at base- improved, no wheezing ABD: soft, non-tender, non-distended, no rebound or guarding, +BS, no CVA tenderness EXTREMITY: S/P right knee effusion- immobilizer present, no pedal edema Lab data as noted below. CHEST CTA for PULMONARY ARTERIES 1. Study is negative for pulmonary embolus. 2. Pulmonary edema superimposed upon pre-existing chronic fibrosis. ASSESSMENT & PLAN: Assessment & Plan : 61 yo F presents with multiple falls at home and weakness s/p Rt knee injury with effusion s/p aspiration. Weakness thought 2/2 UTI and she has had symptoms of dysuria for the past two weeks. While in hospital, continued to have malaise , became hypoxic, developed pneumonia. ACUTE ON CHRONIC HYPOXIC RESPIRATORY FAILURE- Improving -Possibilities considered : ILD Flare, Probable Right sided pneumonia , CHF considered but clinically not over loaded, BNP 700s, though CT chest shows pulmonary edema. -S/P Oxymask and weaned down to 3 L oxygen (At home : 2 L PRN) -On IV solumedrol - 20 mg q 12 hours-tapering, S/P IV Lasix 40 mg BID --> Change to PO lasix 40 daily , IV antibiotics --> Changed to levofloxacin PO -Pulmonary on board - Appreciate inputs -Work up- CT chest , Speech evaluation ordered- Dental soft diet recommended. GENERALIZED WEAKNESS/PHYSICAL DECONDITIONING -Multiple falls prior to admission. -PT/OT ordered S/P RIGHT KNEE EFFUSION with hx of OA/DJD -S/P Tapping by ortho done on 03/25/17 -Full leg knee immobilizer placed per ortho- weight bearing as tolerated, pain controlled -CT knee- no patellar fracture HTN- Presented with urgency. -Stable now HX OF CVA -Stable -Continue with aspiration precautions -Speech therapy evaluated- appreciate inputs IBS -C diff negative, has diarrhea due to laxatives SPINA BIFIDA ANEMIA, CHRONIC -Stable DVT prophylaxis Lovenox subcutaneous FULL CODE DISPOSITION -PT/OT ordered Vital Signs: Date Time Temp Pulse Resp B/P (MAP) Pulse Ox O2 Delivery O2 Flow Rate FiO2 03/30/17 08:00 Nasal Cannula 4.0 03/30/17 06:57 101 18 92 Nasal Cannula 4.0 03/30/17 04:07 36.6 101 20 135/76 (95) 92 Nasal Cannula 4.0 03/30/17 04:00 92 Nasal Cannula 4.0 03/30/17 01:37 104 18 92 Nasal Cannula 4.0 03/30/17 00:01 92 Nasal Cannula 4.0 03/29/17 23:40 36.6 111 20 148/78 (101) 92 Nasal Cannula 4.0 03/29/17 20:00 89 Nasal Cannula 2.0 03/29/17 19:50 95 18 96 Nasal Cannula 5.0 03/29/17 19:36 36.7 107 18 124/74 (91) 89 Nasal Cannula 2.0 03/29/17 16:00 Nasal Cannula 3.0 03/29/17 15:18 36.4 108 20 122/72 (89) 90 Nasal Cannula 2.0 03/29/17 14:31 103 18 97 Nasal Cannula 5.0 03/29/17 12:00 Nasal Cannula 3.0 03/29/17 11:51 36.4 104 22 111/74 (86) 93 Nasal Cannula 3.0 Lab Results: Results Past 24 Hours Test 03/29/17 12:35 03/30/17 05:51 Range/Units Sodium Level 133 135 136-145 mmol/L Potassium Level 3.5 3.6 3.5-5.1 mmol/L Chloride Level 95 97 98-107 mmol/L Carbon Dioxide Level 29 32 21-32 mmol/L Anion Gap 9.0 6.0 3-11 mmol/L Blood Urea Nitrogen 17 14 7-18 mg/dl Creatinine 0.76 0.67 0.60-1.20 mg/dl Est Creatinine Clear Calc Drug Dose 63.5 72.0 ml/min Estimated GFR () 97.4 109.2 Estimated GFR (Non- 84.1 94.2 BUN/Creatinine Ratio 22.8 21.5 10-20 Random Glucose 142 101 70-99 mg/dl Calcium Level 9.1 8.9 8.5-10.1 mg/dl White Blood Count 11.12 4.8-10.8 K/uL Red Blood Count 3.68 4.2-5.4 M/uL Hemoglobin 11.3 12.0-16.0 g/dL Hematocrit 34.0 37-47 % Mean Corpuscular Volume 92.4 80-100 fL Mean Corpuscular Hemoglobin 30.7 25-34 pg Mean Corpuscular Hemoglobin Concent 33.2 32-36 g/dl Platelet Count 266 130-400 K/uL Mean Platelet Volume 10.3 7.4-10.4 fL Neutrophils (%) (Auto) 73.7 % Lymphocytes (%) (Auto) 15.3 % Monocytes (%) (Auto) 10.3 % Eosinophils (%) (Auto) 0.3 % Basophils (%) (Auto) 0.1 % Neutrophils # (Auto) 8.21 1.4-6.5 K/uL Lymphocytes # (Auto) 1.70 1.2-3.4 K/uL Monocytes # (Auto) 1.14 0.11-0.59 K/uL Eosinophils # (Auto) 0.03 0-0.5 K/uL Basophils # (Auto) 0.01 0-0.2 K/uL RDW Standard Deviation 48.7 36.4-46.3 fL RDW Coefficient of Variation 14.5 11.5-14.5 % Immature Granulocyte % (Auto) 0.3 % Immature Granulocyte # (Auto) 0.03 0.00-0.02 K/uL
[2017-03-30] MEDS: METHYLPREDNISOLONE IV 20 MG in SYRINGE 0 ML IV SCH (09:18)
[2017-03-30] MEDS: LEVOFLOXACIN 750 MG TAB PO SCH (12:14)
--- NOTE | 2017-03-30 18:25 | Pulmonology Progress Note ---
Pulmonary Progress Note Date of Service Mar 30, 2017. Attending Dr. Perera Subjective The patient is evaluated today with Onel Olmos, physician household personal assistant student, with the patient's verbal consent. Patient reports that she is feeling well today. She is really not having any difficulty with her breathing. She states that her breathing is improving. She is requiring less oxygen at this time. She is not having any chest discomfort. No chest heaviness or tightness. No wheezing. She states overall her breathing feels like she is getting back to her baseline. She reports that she is having some weakness and tiredness. Otherwise she is feeling okay. She denies any cardiac symptoms. She denies any chest pain or pressure. She denies any palpitations. She denies any GI symptoms. No nausea, vomiting, or diarrhea. She is not having any difficulty voiding. No hesitancy or urgency. She is not having any difficulty with swelling in her extremities. Objective Patient is a 61-year-old female lying in bed. She just finished eating. She has no acute distress. No respiratory distress. She is able to complete sentences without difficulty. She is alert and oriented x3. Mood is good. Affect is good. Vital signs are stable on listed below. Neck: Supple, no mass no adenopathy no bruit. Chest: Diminished breath sounds bilaterally. No appreciated wheeze, rale, or rhonchi. Cardiovascular: Regular rate and rhythm. No murmurs, gallops, or rubs. Abdomen: Bowel sounds are present. No guarding, rigidity, or organomegaly. Extremities: No erythema or edema. No cyanosis or clubbing. No tenderness to palpation. Neuro: Cranial nerves 2-12 are intact. No focal deficits noted. Assessment & Plan Impressions: #1 respiratory failure with hypoxia #2 interstitial lung disease #3 emphysema #4 probable right lung pneumonia but with inability to exclude CHF #5 UTI with Enterobacter Comments and recommendations: Patient is evaluated today. At this time she is doing well. Her oxygen demand is last. For now I would like for her to be switched over to oral prednisone. She is agreeable to this. She reports that they are probably going to be sending her to [facility] or home with physical therapy. I think this is a good idea. She is to continue pulmonary toilet as it is. She is to be continued on the rest for medications as they are. We will continue to follow throughout hospitalization. Data Medications: Current Inpatient Medications Medications (Trade) Dose Ordered Sig/Bishnu Route Start Time Stop Time Status Last Admin Dose Admin Enoxaparin Sodium (Lovenox Inj) 40 mg Q24H SQ 03/24/17 09:00 04/23/17 08:59 03/30/17 07:48 40 MG Ondansetron HCl (Zofran Inj) 4 mg Q6H PRN IV 03/24/17 00:30 04/23/17 00:29 Aspirin (Ecotrin Tab) 81 mg DAILY PO 03/24/17 09:00 04/23/17 08:59 03/30/17 07:48 81 MG Ipratropium Bedias (Atrovent 0.02% 0.5MG/2.5ML Neb) 0.5 mg Q4H PRN INH 03/24/17 01:30 04/23/17 01:29 Levalbuterol (Xopenex 1.25MG/ 0.5ML Neb) 1.25 mg Q4H PRN INH 03/24/17 01:30 04/23/17 01:29 Miscellaneous Information (Order Awaiting Action) 1 ea QS N/A 03/24/17 08:00 04/23/17 07:59 03/27/17 22:52 1 EA Budesonide (Pulmicort Inhaler) 2 puffs BID INH 03/26/17 09:00 04/25/17 08:59 03/30/17 07:48 2 PUFFS Ipratropium Bedias (Atrovent 0.02% 0.5MG/2.5ML Neb) 0.5 mg Q6R INH 03/26/17 03:00 04/25/17 02:59 03/30/17 14:35 0.5 MG Levalbuterol (Xopenex 1.25MG/ 0.5ML Neb) 1.25 mg Q6R INH 03/26/17 03:00 04/25/17 02:59 03/30/17 14:36 1.25 MG Acetaminophen 650 mg/Empty Bag 65 ml @ 260 mls/hr Q6H PRN IV 03/27/17 12:15 04/26/17 12:14 Ioversol (Optiray 320) 100 ml UD PRN IV 03/27/17 13:00 03/31/17 12:59 Loperamide HCl (Imodium Cap) 2 mg Q6H PRN PO 03/28/17 10:15 04/27/17 10:14 03/30/17 16:28 2 MG Furosemide (Lasix Tab) 40 mg QAM PO 03/30/17 09:00 04/29/17 08:59 03/30/17 07:48 40 MG Levofloxacin (Levaquin Tab) 750 mg DAILY@11 PO 03/29/17 11:00 04/05/17 10:59 03/30/17 12:14 750 MG Prednisone (PredniSONE TAB) 20 mg BIDM PO 03/30/17 17:00 04/29/17 16:59 03/30/17 16:17 20 MG I & O: 24-Hour Column 03/31/17 08:00 Intake Total 200 ml Output Total 1175 ml Balance -975 ml Vital Signs: Date Time Temp Pulse Resp B/P (MAP) Pulse Ox O2 Delivery O2 Flow Rate FiO2 03/30/17 15:13 36.8 108 20 119/78 (92) 95 Nasal Cannula 4.5 03/30/17 14:36 105 18 94 Nasal Cannula 4.0 03/30/17 12:26 90 Nasal Cannula 3.0 60 03/30/17 10:38 36.5 107 20 90 3.0 03/30/17 09:16 36.5 107 20 129/75 (93) 90 Nasal Cannula 3.0 03/30/17 08:00 Nasal Cannula 4.0 03/30/17 06:57 101 18 92 Nasal Cannula 4.0 03/30/17 04:07 36.6 101 20 135/76 (95) 92 Nasal Cannula 4.0 03/30/17 04:00 92 Nasal Cannula 4.0 03/30/17 01:37 104 18 92 Nasal Cannula 4.0 03/30/17 00:01 92 Nasal Cannula 4.0 03/29/17 23:40 36.6 111 20 148/78 (101) 92 Nasal Cannula 4.0 03/29/17 20:00 89 Nasal Cannula 2.0 03/29/17 19:50 95 18 96 Nasal Cannula 5.0 03/29/17 19:36 36.7 107 18 124/74 (91) 89 Nasal Cannula 2.0 Laboratory Results: Last 24 Hours Test 03/30/17 05:51 White Blood Count 11.12 K/uL Red Blood Count 3.68 M/uL Hemoglobin 11.3 g/dL Hematocrit 34.0 % Mean Corpuscular Volume 92.4 fL Mean Corpuscular Hemoglobin 30.7 pg Mean Corpuscular Hemoglobin Concent 33.2 g/dl Platelet Count 266 K/uL Mean Platelet Volume 10.3 fL Neutrophils (%) (Auto) 73.7 % Lymphocytes (%) (Auto) 15.3 % Monocytes (%) (Auto) 10.3 % Eosinophils (%) (Auto) 0.3 % Basophils (%) (Auto) 0.1 % Neutrophils # (Auto) 8.21 K/uL Lymphocytes # (Auto) 1.70 K/uL Monocytes # (Auto) 1.14 K/uL Eosinophils # (Auto) 0.03 K/uL Basophils # (Auto) 0.01 K/uL RDW Standard Deviation 48.7 fL RDW Coefficient of Variation 14.5 % Immature Granulocyte % (Auto) 0.3 % Immature Granulocyte # (Auto) 0.03 K/uL Sodium Level 135 mmol/L Potassium Level 3.6 mmol/L Chloride Level 97 mmol/L Carbon Dioxide Level 32 mmol/L Anion Gap 6.0 mmol/L Blood Urea Nitrogen 14 mg/dl Creatinine 0.67 mg/dl Est Creatinine Clear Calc Drug Dose 72.0 ml/min Estimated GFR () 109.2 Estimated GFR (Non- 94.2 BUN/Creatinine Ratio 21.5 Random Glucose 101 mg/dl Calcium Level 8.9 mg/dl
[2017-03-31] VITALS (8 sets, daily range): BP systolic 125–142; BP diastolic 74–81; PULSE 95–116; TEMP 36.3–36.4; O2SAT 56–97
[2017-03-31] MEDS ORDERED: ZOLPIDEM TARTRATE 5 MG TAB PO ONE (01:15)
[2017-03-31] MEDS: IPRATROPIUM BROMIDE NEB SOLN 0.02% 2.5 ML VIAL INH SCH ×4 (01:47→19:09)
[2017-03-31] MEDS: LEVALBUTEROL 1.25MG/0.5ML NEB INH SCH ×4 (01:47→19:09)
[2017-03-31] MEDS: FUROSEMIDE 40 MG TAB PO SCH (08:40)
[2017-03-31] MEDS: ASPIRIN 81 MG ECTAB PO SCH (08:40)
[2017-03-31] MEDS: BUDESONIDE 90 MCG INH INH SCH ×2 (08:40→20:39)
[2017-03-31] MEDS: ENOXAPARIN 40 MG/0.4 ML SYR SQ SCH (08:41)
[2017-03-31] MEDS: LEVOFLOXACIN 750 MG TAB PO SCH (08:41)
[2017-03-31] MEDS: LOPERAMIDE HCL 2 MG CAP PO PRN ×2 (10:43→20:39)
--- NOTE | 2017-03-31 11:32 | Progress Note ---
Internal Med Progress Note Date of Service: Mar 31, 2017. Provider Documentation: SUBJECTIVE : Patient is feeling better. Loose stools + SOB has improved. Coughing present but not bringing up much. No fever, chills, chest pain, vomiting, nausea. On 4 L oxygen now OBJECTIVE : Vital Signs-as noted below Exam: GEN: AAXO2, Not in distress HEENT: Atraumatic, normocephalic CARDIO: S1, S2 normal LUNGS: Few crackles heard at base- improved, no wheezing ABD: soft, non-tender, non-distended, no rebound or guarding, +BS, no CVA tenderness EXTREMITY: S/P right knee effusion- immobilizer present, no pedal edema Lab data as noted below. CHEST CTA for PULMONARY ARTERIES 1. Study is negative for pulmonary embolus. 2. Pulmonary edema superimposed upon pre-existing chronic fibrosis. ASSESSMENT & PLAN: Assessment & Plan : 61 yo F presents with multiple falls at home and weakness s/p Rt knee injury with effusion s/p aspiration. Weakness thought 2/2 UTI and she has had symptoms of dysuria for the past two weeks. While in hospital, continued to have malaise , became hypoxic, developed pneumonia. ACUTE ON CHRONIC HYPOXIC RESPIRATORY FAILURE- Improving, but again oxygen requirement up today -Possibilities considered : ILD Flare, Probable Right sided pneumonia , CHF considered but clinically not over loaded, BNP 700s, though CT chest shows pulmonary edema. -S/P Oxymask and weaned down to oxygen (At home : 2 L PRN) -S/P IV Solu medrol---> Changed to prednisone BID per pulmonary, S/P IV Lasix 40 mg BID --> Will give one more dose of Lasix 40 mg today as oxygen requirement higher and I/O shows positive fluid balance, however, clinically doing well with no overt failure signs , IV antibiotics --> Changed to levofloxacin PO -Pulmonary on board - Appreciate inputs -Work up- CT chest , Speech evaluation ordered- Dental soft diet recommended. GENERALIZED WEAKNESS/PHYSICAL DECONDITIONING -Multiple falls prior to admission. -PT/OT ordered S/P RIGHT KNEE EFFUSION with hx of OA/DJD -S/P Tapping by ortho done on 03/25/17 -Full leg knee immobilizer placed per ortho- weight bearing as tolerated, pain controlled -CT knee- no patellar fracture HTN- Presented with urgency. -Stable now HX OF CVA -Stable -Continue with aspiration precautions -Speech therapy evaluated- appreciate inputs IBS -C diff negative, has diarrhea due to laxatives SPINA BIFIDA ANEMIA, CHRONIC -Stable DVT prophylaxis Lovenox subcutaneous FULL CODE DISPOSITION -PT/OT ordered -[facility] when medically stable -Will monitor her for 24 hours more due to hypoxia. Vital Signs: Date Time Temp Pulse Resp B/P (MAP) Pulse Ox O2 Delivery O2 Flow Rate FiO2 03/31/17 08:45 Nasal Cannula 6.0 03/31/17 07:00 36.3 102 18 125/79 (94) 97 Nasal Cannula 6.0 03/31/17 06:55 95 18 97 Nasal Cannula 6.0 03/31/17 03:00 Nasal Cannula Humidified Oxygen 03/31/17 01:47 101 20 87 Nasal Cannula 4.0 03/31/17 00:20 Nasal Cannula 4.5 03/31/17 00:15 36.3 106 18 142/74 (96) 90 Nasal Cannula 4.5 03/30/17 19:56 113 18 90 Nasal Cannula 4.0 03/30/17 16:00 93 Nasal Cannula 4.5 03/30/17 15:13 36.8 108 20 119/78 (92) 95 Nasal Cannula 4.5 03/30/17 14:36 105 18 94 Nasal Cannula 4.0 03/30/17 12:26 90 Nasal Cannula 3.0 60
[2017-03-31] MEDS ORDERED: FUROSEMIDE INJ 40 MG in SYRINGE 0 ML IV ONE (12:00)
--- NOTE | 2017-03-31 12:17 | DIAGNOSTIC IMAGING REPORT ---
CHEST ONE VIEW PORTABLE CLINICAL HISTORY: dyspnea COMPARISON STUDY: 03/27/2017 FINDINGS: Moderately improved exam. The interstitial fibrotic change presumably baseline in appearance is again noted. The superimposed acute changes potentially representing pulmonary edema have a considerably improved. No evidence for cardiac enlargement. Diaphragms are smooth. IMPRESSION: Improved exam. Residual parenchymal fibrotic change, the bulk of which is most likely chronic. Electronically signed by: Steven Vidal M.D. 03/31/2017 12:16 PM Dictated Date/Time: 03/31/2017 12:11 PM
--- NOTE | 2017-03-31 12:26 | Pulmonology Progress Note ---
Pulmonary Progress Note Date of Service Mar 31, 2017. Attending Dr. Perera Subjective Patient was evaluated with Onel Olmos, physician administrative assistant data entry student, with patient's verbal consent given. Patient was evaluated today. In reviewing the chart it was noted that patient did become hypoxic overnight with her saturations dropping down to the mid 80% range on 4 L. She was transitioned up to 6 L/m by nasal cannula. Her saturations did rebound into the low to mid 90s. I spoke with respiratory therapist was on and she reports that patient did have some active wheezing at the time. She also had some congestion. The patient did well on 6 L rest of the night and through end of the morning. In reviewing the chart her saturations were about 95-96% on 6 L by nasal cannula. When examined the patient, she reports that she is feeling fine. She denies any increased shortness of breath. She does not remember being short of breath overnight. She does remember them increasing her oxygen. She denies any chest heaviness or tightness. She denies any cough or congestion. She denies any wheezing. She states that she's been feeling fine for the most part. She's not had any pleuritic chest pain. She states that her nose is been stuffy and she is not sure if this is affecting her oxygen or not. She states also that they did have trouble getting the oxygen reading on her fingertips and they had to use the forehead monitor from time to time. Currently she has a pulse ox meter on her finger. She denies any cardiac symptoms. No chest pain. No palpitations. No chest pressure or heaviness. She's not had any chills or sweats. She is not felt feverish. She denies any GI issues. No nausea or vomiting. No indigestion or heartburn. She states that she still has diarrhea. She states that every time she coughs she will pass some stool and she is very frustrated with this. I did review this with the hospitalist and Dr. Zamudio reported that this is an ongoing chronic issue with the patient she has had stool checked for C. difficile as recently as March 27. It was negative at that time. The patient reports that she is voiding well. She's not had any swelling or extremities. In reviewing the chart patient did have over 2800 mL positive fluid balance yesterday. In reviewing her medication she has not been on IV and fluids since March 27. Patient states that she still is a little bit rundown and tired and that she is agreeable to going to rehabilitation. Objective Patient is a 61-year-old female lying in bed. She just finished eating. She has no acute distress. No respiratory distress. She is able to complete sentences without difficulty. She is alert and oriented x3. Mood is good. Affect is good. Vital signs: Temp 36.3, pulse 102, respiration 18, blood pressure 125/79, pulse ox 97% on 6 L via nasal cannula. Neck: Supple, no mass no adenopathy no bruit. Chest: Diminished breath sounds bilaterally. No appreciated wheeze, rale, or rhonchi. Cardiovascular: Regular rate and rhythm. No murmurs, gallops, or rubs. Abdomen: Bowel sounds are present. No guarding, rigidity, or organomegaly. Extremities: No erythema or edema. No cyanosis or clubbing. No tenderness to palpation. Neuro: Cranial nerves 2-12 are intact. No focal deficits noted. I did speak with patient's nurse and had him decrease her oxygen to 4 L prior to my entering. When I got in to see the patient she had dropped down to about 88% on 4 L by nasal cannula. She did desaturate a little bit more down to 82-83 % with talking. Assessment & Plan Impressions: #1 respiratory failure with hypoxia #2 interstitial lung disease #3 emphysema #4 probable right lung pneumonia but with inability to exclude CHF #5 UTI with Enterobacter Comments and recommendations: Patient is evaluated today. At this time her oxygen demand has increased some. She is requiring 6 L to maintain saturations in the mid 90% range. Unsure of the reason why this is. However she did have an almost 3 L positive fluid balance yesterday and a 2 kg weight change. Case was discussed with Dr. Zamudio, hospitalist. At this point Dr. Zamudio is going to give her 20 mg of Lasix IV to see if we can diurese some of the fluid off and see if this helps her breathing. For now I want to monitor and titrate her oxygen to maintain saturations in the 90-94% range if possible. She does have some nasal congestion so we may need to consider using an oxygen mask. I also would like to have a chest x-ray done to see if there is anything else that may be happening with the patient. Currently she is not having any wheezing so I don't want to change her steroid. If she does have some wheezing we may need to go back to using IV Solu-Medrol instead of prednisone. I also did discuss the patient's diarrhea with Dr. Zamudio. Dr. Zamudio reported that this is a chronic issue. I will defer any further testing in regards to the diarrhea to Dr. Zamudio. We will continue to follow throughout hospitalization. Data Medications: Current Inpatient Medications Medications (Trade) Dose Ordered Sig/Bishnu Route Start Time Stop Time Status Last Admin Dose Admin Enoxaparin Sodium (Lovenox Inj) 40 mg Q24H SQ 03/24/17 09:00 04/23/17 08:59 03/31/17 08:41 40 MG Ondansetron HCl (Zofran Inj) 4 mg Q6H PRN IV 03/24/17 00:30 04/23/17 00:29 Aspirin (Ecotrin Tab) 81 mg DAILY PO 03/24/17 09:00 04/23/17 08:59 03/31/17 08:40 81 MG Ipratropium Galt (Atrovent 0.02% 0.5MG/2.5ML Neb) 0.5 mg Q4H PRN INH 03/24/17 01:30 04/23/17 01:29 Levalbuterol (Xopenex 1.25MG/ 0.5ML Neb) 1.25 mg Q4H PRN INH 03/24/17 01:30 04/23/17 01:29 Miscellaneous Information (Order Awaiting Action) 1 ea QS N/A 03/24/17 08:00 04/23/17 07:59 03/27/17 22:52 1 EA Budesonide (Pulmicort Inhaler) 2 puffs BID INH 03/26/17 09:00 04/25/17 08:59 03/31/17 08:40 2 PUFFS Ipratropium Galt (Atrovent 0.02% 0.5MG/2.5ML Neb) 0.5 mg Q6R INH 03/26/17 03:00 04/25/17 02:59 03/31/17 06:55 0.5 MG Levalbuterol (Xopenex 1.25MG/ 0.5ML Neb) 1.25 mg Q6R INH 03/26/17 03:00 04/25/17 02:59 03/31/17 06:55 1.25 MG Acetaminophen 650 mg/Empty Bag 65 ml @ 260 mls/hr Q6H PRN IV 03/27/17 12:15 04/26/17 12:14 Ioversol (Optiray 320) 100 ml UD PRN IV 03/27/17 13:00 03/31/17 12:59 Loperamide HCl (Imodium Cap) 2 mg Q6H PRN PO 03/28/17 10:15 04/27/17 10:14 03/31/17 10:43 2 MG Furosemide (Lasix Tab) 40 mg QAM PO 03/30/17 09:00 04/29/17 08:59 03/31/17 08:40 40 MG Levofloxacin (Levaquin Tab) 750 mg DAILY@11 PO 03/29/17 11:00 04/05/17 10:59 03/31/17 08:41 750 MG Prednisone (PredniSONE TAB) 20 mg BIDM PO 03/30/17 17:00 04/29/17 16:59 03/31/17 08:40 20 MG Vital Signs: Date Time Temp Pulse Resp B/P (MAP) Pulse Ox O2 Delivery O2 Flow Rate FiO2 03/31/17 08:45 Nasal Cannula 6.0 03/31/17 07:00 36.3 102 18 125/79 (94) 97 Nasal Cannula 6.0 03/31/17 06:55 95 18 97 Nasal Cannula 6.0 03/31/17 03:00 Nasal Cannula Humidified Oxygen 03/31/17 01:47 101 20 87 Nasal Cannula 4.0 03/31/17 00:20 Nasal Cannula 4.5 03/31/17 00:15 36.3 106 18 142/74 (96) 90 Nasal Cannula 4.5 03/30/17 19:56 113 18 90 Nasal Cannula 4.0 03/30/17 16:00 93 Nasal Cannula 4.5 03/30/17 15:13 36.8 108 20 119/78 (92) 95 Nasal Cannula 4.5 03/30/17 14:36 105 18 94 Nasal Cannula 4.0 03/30/17 12:26 90 Nasal Cannula 3.0 60
[2017-04-01] VITALS (9 sets, daily range): BP systolic 129–154; BP diastolic 80–88; PULSE 98–108; TEMP 36.4–36.8; O2SAT 90–95
[2017-04-01] MEDS: IPRATROPIUM BROMIDE NEB SOLN 0.02% 2.5 ML VIAL INH SCH ×4 (01:58→19:10)
[2017-04-01] MEDS: LEVALBUTEROL 1.25MG/0.5ML NEB INH SCH ×4 (01:59→19:10)
[2017-04-01 07:48] LABS: BUN/CREATININE RATIO 24.3 (10-20); CREATININE 0.72 mg/dl (0.60-1.20); POTASSIUM 3.3 mmol/L (3.5-5.1)
[2017-04-01] MEDS ORDERED: POTASSIUM CHLORIDE 10 MEQ TABCR PO STA (08:17)
[2017-04-01] MEDS: SACCHAROMYCES BOUL (FLORASTOR) 250 MG CAP PO SCH (08:38)
[2017-04-01] MEDS: LEVOFLOXACIN 750 MG TAB PO SCH (08:38)
[2017-04-01] MEDS: FUROSEMIDE 40 MG TAB PO SCH (08:38)
[2017-04-01] MEDS: BUDESONIDE 90 MCG INH INH SCH ×2 (08:39→21:11)
[2017-04-01] MEDS: ASPIRIN 81 MG ECTAB PO SCH (08:39)
[2017-04-01] MEDS: ENOXAPARIN 40 MG/0.4 ML SYR SQ SCH (08:40)
--- NOTE | 2017-04-01 09:57 | Progress Note ---
Internal Med Progress Note Date of Service: Apr 01, 2017. Provider Documentation: SUBJECTIVE : Patient is feeling better. Loose stools + better SOB has improved. Coughing present but not bringing up much. No fever, chills, chest pain, vomiting, nausea. Continues to be on 4 L oxygen with sao2 90% OBJECTIVE : Vital Signs-as noted below Exam: GEN: AAXO2, Not in distress HEENT: Atraumatic, normocephalic CARDIO: S1, S2 normal LUNGS: Few crackles heard at base- improved, no wheezing ABD: soft, non-tender, non-distended, no rebound or guarding, +BS, no CVA tenderness EXTREMITY: S/P right knee effusion- immobilizer present, no pedal edema Lab data as noted below. CHEST CTA for PULMONARY ARTERIES 1. Study is negative for pulmonary embolus. 2. Pulmonary edema superimposed upon pre-existing chronic fibrosis. ASSESSMENT & PLAN: Assessment & Plan : 61 yo F presents with multiple falls at home and weakness s/p Rt knee injury with effusion s/p aspiration. Weakness thought 2/2 UTI and she has had symptoms of dysuria for the past two weeks. While in hospital, continued to have malaise , became hypoxic, developed pneumonia. ACUTE ON CHRONIC HYPOXIC RESPIRATORY FAILURE- Improving, but again oxygen requirement going up. -Possibilities considered : ILD Flare, Probable Right sided pneumonia , CHF considered but clinically not over loaded, BNP 700s, though CT chest shows pulmonary edema. -S/P Oxymask and weaned down to oxygen nasal cannula (At home : 2 L PRN) -S/P IV Solu medrol---> Changed to prednisone BID per pulmonary, S/P IV Lasix 40 mg BID --> Gave a dose of Lasix 40 mg IV on 03/31/17 as oxygen requirement higher and I/O showed positive fluid balance, however, clinically doing well with no overt failure signs . Will give one more dose IV Lasix 40 mg today -On levofloxacin -Pulmonary on board - Appreciate inputs -Work up- CT chest , Speech evaluation ordered- Dental soft diet recommended. DIARRHEA Has hx of chronic diarrhea/ IBS and uses Imodium 2-3 times a day at home -Says it is a bit worse -C diff x 2 - negative. Will repeat it again as diarrhea persistent GENERALIZED WEAKNESS/PHYSICAL DECONDITIONING -Multiple falls prior to admission. -PT/OT ordered S/P RIGHT KNEE EFFUSION with hx of OA/DJD -S/P Tapping by ortho done on 03/25/17 -Full leg knee immobilizer placed per ortho- weight bearing as tolerated, pain controlled -CT knee- no patellar fracture HTN- Presented with urgency. -Stable now HX OF CVA -Stable -Continue with aspiration precautions -Speech therapy evaluated- appreciate inputs SPINA BIFIDA ANEMIA, CHRONIC -Stable DVT prophylaxis Lovenox subcutaneous FULL CODE DISPOSITION -PT/OT ordered -[facility] when medically stable -Will monitor her for 24 hours more due to hypoxia. Vital Signs: Date Time Temp Pulse Resp B/P (MAP) Pulse Ox O2 Delivery O2 Flow Rate FiO2 04/01/17 07:06 98 16 90 Nasal Cannula 4.0 04/01/17 06:52 36.4 106 18 150/88 (108) 91 Nasal Cannula 4.0 04/01/17 01:59 100 16 90 Nasal Cannula 6.0 04/01/17 00:05 Nasal Cannula 4.0 Humidified Oxygen 04/01/17 00:02 36.8 108 20 154/80 (104) 95 Nasal Cannula 4.0 03/31/17 19:09 116 16 93 Nasal Cannula 6.0 03/31/17 15:38 91 Room Air 4.5 03/31/17 15:00 36.4 109 20 133/81 (98) 03/31/17 14:12 104 18 56 Room Air Lab Results: Results Past 24 Hours Test 04/01/17 06:45 Range/Units Sodium Level 132 136-145 mmol/L Potassium Level 3.3 3.5-5.1 mmol/L Chloride Level 92 98-107 mmol/L Carbon Dioxide Level 29 21-32 mmol/L Anion Gap 11.0 3-11 mmol/L Blood Urea Nitrogen 18 7-18 mg/dl Creatinine 0.72 0.60-1.20 mg/dl Est Creatinine Clear Calc Drug Dose 67.0 ml/min Estimated GFR () 104.0 Estimated GFR (Non- 89.8 BUN/Creatinine Ratio 24.3 10-20 Random Glucose 95 70-99 mg/dl Calcium Level 9.0 8.5-10.1 mg/dl
[2017-04-01] MEDS ORDERED: ACETAMINOPHEN 325 MG TAB PO PRN (10:00)
[2017-04-01] MEDS ORDERED: FUROSEMIDE INJ 20 MG in SYRINGE 0 ML IV ONE (10:30)
--- NOTE | 2017-04-01 18:47 | Pulmonology Progress Note ---
Pulmonary Progress Note Date of Service Apr 01, 2017. Attending Dr. Becerra Subjective Patient is comfortable and continues to note no shortness of breath. She does note dyspnea on exertion was simply sitting up in bed. Objective The patient is doing well today shows no signs of respiratory insufficiency during our conversation. VS: I/Os: -650cc (last 24 hours) Total +1.6L SaO2: 56-92% FiO2: 3.5-6.0Lnc RR: 16-20 RESP: Mild rhonchi bilaterally CARD: S1 and S2 distant heart sounds EXT: Notable clubbing in bilateral upper extremities LABS: ABG (03/27/2017) 7.46/43/72/30 (NRB) A-a Gradient 491 CT thorax 03/27/2017 compared to 01/13/2016 Continued diffuse emphysematous/cystic changes with increased consolidations in the dependent regions of the right hemithorax, signs of chronic aspiration versus mucous retention within the trachea and bilateral bronchi Medications: #1 prednisone 20 mg twice a day #2 levofloxacin 750 mg daily for 7 #3 budesonide 2 puffs twice a day #4 Xopenex/Atrovent nebulizer every 6 hours and every 4 hours when necessary shortness of breath #5 Lovenox 40 mg subcutaneous daily #6 aspirin 81 mg daily Pulmonary function test (12/25/13) FEV1/FVC: 63 FEV1: 1.38/58% FVC: 2.17/74% T.38/93% VC: 2.52/87% DLCO: 41% with correction to 78% based off alveolar volume Assessment & Plan Impressions: #1 respiratory failure with hypoxia #2 interstitial lung disease #3 emphysema #4 probable right lung pneumonia but with inability to exclude CHF #5 UTI with Enterobacter Comments and recommendations: Patient is evaluated today. At this time her oxygen demand has increased some. She is requiring 6 L to maintain saturations in the mid 90% range. Unsure of the reason why this is. However she did have an almost 3 L positive fluid balance yesterday and a 2 kg weight change. Case was discussed with Dr. Zamudio, hospitalist. At this point Dr. Zamudio is going to give her 20 mg of Lasix IV to see if we can diurese some of the fluid off and see if this helps her breathing. For now I want to monitor and titrate her oxygen to maintain saturations in the 90-94% range if possible. She does have some nasal congestion so we may need to consider using an oxygen mask. I also would like to have a chest x-ray done to see if there is anything else that may be happening with the patient. Currently she is not having any wheezing so I don't want to change her steroid. If she does have some wheezing we may need to go back to using IV Solu-Medrol instead of prednisone. I also did discuss the patient's diarrhea with Dr. Zamudio. Dr. Zamudio reported that this is a chronic issue. I will defer any further testing in regards to the diarrhea to Dr. Zamudio. We will continue to follow throughout hospitalization. Data Medications: Current Inpatient Medications Medications (Trade) Dose Ordered Sig/Bishnu Route Start Time Stop Time Status Last Admin Dose Admin Enoxaparin Sodium (Lovenox Inj) 40 mg Q24H SQ 03/24/17 09:00 04/23/17 08:59 04/01/17 08:40 40 MG Ondansetron HCl (Zofran Inj) 4 mg Q6H PRN IV 03/24/17 00:30 04/23/17 00:29 Aspirin (Ecotrin Tab) 81 mg DAILY PO 03/24/17 09:00 04/23/17 08:59 04/01/17 08:39 81 MG Ipratropium [place] (Atrovent 0.02% 0.5MG/2.5ML Neb) 0.5 mg Q4H PRN INH 03/24/17 01:30 04/23/17 01:29 Levalbuterol (Xopenex 1.25MG/ 0.5ML Neb) 1.25 mg Q4H PRN INH 03/24/17 01:30 04/23/17 01:29 Miscellaneous Information (Order Awaiting Action) 1 ea QS N/A 03/24/17 08:00 04/23/17 07:59 03/27/17 22:52 1 EA Budesonide (Pulmicort Inhaler) 2 puffs BID INH 03/26/17 09:00 04/25/17 08:59 04/01/17 08:39 2 PUFFS Ipratropium [place] (Atrovent 0.02% 0.5MG/2.5ML Neb) 0.5 mg Q6R INH 03/26/17 03:00 04/25/17 02:59 04/01/17 14:02 0.5 MG Levalbuterol (Xopenex 1.25MG/ 0.5ML Neb) 1.25 mg Q6R INH 03/26/17 03:00 04/25/17 02:59 04/01/17 14:02 1.25 MG Loperamide HCl (Imodium Cap) 2 mg Q6H PRN PO 03/28/17 10:15 04/27/17 10:14 03/31/17 20:39 2 MG Furosemide (Lasix Tab) 40 mg QAM PO 03/30/17 09:00 04/29/17 08:59 04/01/17 08:38 40 MG Levofloxacin (Levaquin Tab) 750 mg DAILY@11 PO 03/29/17 11:00 04/05/17 10:59 04/01/17 08:38 750 MG Prednisone (PredniSONE TAB) 20 mg BIDM PO 03/30/17 17:00 04/29/17 16:59 04/01/17 16:43 20 MG Saccharomyces Boulardii (Florastor Cap) 250 mg DAILY PO 04/01/17 09:00 05/01/17 08:59 04/01/17 08:38 250 MG Acetaminophen (Tylenol Tab) 650 mg Q6H PRN PO 04/01/17 10:00 05/01/17 09:59 Zolpidem Tartrate (Ambien Tab) 5 mg HS PRN PO 04/01/17 10:00 05/01/17 09:59 I & O: 24-Hour Column 04/02/17 08:00 Intake Total 275 ml Output Total 800 ml Balance -525 ml Vital Signs: Date Time Temp Pulse Resp B/P (MAP) Pulse Ox O2 Delivery O2 Flow Rate FiO2 04/01/17 16:45 Nasal Cannula 4.0 04/01/17 16:18 36.5 105 16 146/84 (104) 90 Nasal Cannula 3.5 04/01/17 14:03 101 16 92 Nasal Cannula 4.0 04/01/17 08:45 Nasal Cannula 4.0 04/01/17 07:06 98 16 90 Nasal Cannula 4.0 04/01/17 06:52 36.4 106 18 150/88 (108) 91 Nasal Cannula 4.0 04/01/17 01:59 100 16 90 Nasal Cannula 6.0 04/01/17 00:05 Nasal Cannula 4.0 Humidified Oxygen 04/01/17 00:02 36.8 108 20 154/80 (104) 95 Nasal Cannula 4.0 03/31/17 19:09 116 16 93 Nasal Cannula 6.0 Laboratory Results: Last 24 Hours Test 04/01/17 06:45 Sodium Level 132 mmol/L Potassium Level 3.3 mmol/L Chloride Level 92 mmol/L Carbon Dioxide Level 29 mmol/L Anion Gap 11.0 mmol/L Blood Urea Nitrogen 18 mg/dl Creatinine 0.72 mg/dl Est Creatinine Clear Calc Drug Dose 67.0 ml/min Estimated GFR () 104.0 Estimated GFR (Non- 89.8 BUN/Creatinine Ratio 24.3 Random Glucose 95 mg/dl Calcium Level 9.0 mg/dl
[2017-04-01] MEDS: ZOLPIDEM TARTRATE 5 MG TAB PO PRN (22:36)
[2017-04-02] VITALS (7 sets, daily range): BP systolic 118–145; BP diastolic 72–75; PULSE 92–108; TEMP 36.4–36.9; O2SAT 91–95
[2017-04-02] MEDS: IPRATROPIUM BROMIDE NEB SOLN 0.02% 2.5 ML VIAL INH SCH ×4 (01:41→19:25)
[2017-04-02] MEDS: LEVALBUTEROL 1.25MG/0.5ML NEB INH SCH ×4 (01:41→19:25)
[2017-04-02 06:00] LABS: BASO % 0.1 %; BASO ABS # 0.01 K/uL (0-0.2); COMPLETE YES; HEMATOCRIT 36.6 % (37-47); IG% 1.5 %; LYMPH % 18.2 %; LYMPH ABS # 2.85 K/uL (1.2-3.4); MEAN CELL VOLUME 92.4 fL (80-100); MEAN CORPUSCULAR HEMOGLOBIN 30.3 pg (25-34); MEAN CORPUSCULAR HGB CONC 32.8 g/dl (32-36); MEAN PLATELET VOLUME 10.3 fL (7.4-10.4); MONO % 11.4 %; NEUT % 67.8 %; PLATELET COUNT 339 K/uL (130-400); RED BLOOD COUNT 3.96 M/uL (4.2-5.4); WHITE BLOOD COUNT 15.67 K/uL (4.8-10.8)
[2017-04-02] MEDS: DORNASE ALFA (2500U) 2.5MG/2.5ML INH SCH ×2 (07:10→19:35)
[2017-04-02] MEDS: BUDESONIDE 90 MCG INH INH SCH ×2 (08:13→22:11)
[2017-04-02] MEDS: FUROSEMIDE 40 MG TAB PO SCH (08:14)
[2017-04-02] MEDS: ASPIRIN 81 MG ECTAB PO SCH (08:14)
[2017-04-02] MEDS: LEVOFLOXACIN 750 MG TAB PO SCH (08:14)
[2017-04-02] MEDS: ENOXAPARIN 40 MG/0.4 ML SYR SQ SCH (08:14)
[2017-04-02] MEDS: SACCHAROMYCES BOUL (FLORASTOR) 250 MG CAP PO SCH (08:14)
--- NOTE | 2017-04-02 10:02 | Progress Note ---
Internal Med Progress Note Date of Service: Apr 02, 2017. Provider Documentation: SUBJECTIVE : Patient is feeling better. Loose stools + better SOB has improved. Coughing present but not bringing up much. No fever, chills, chest pain, vomiting, nausea. Continues to be on 4 L oxygen with sao2 90% OBJECTIVE : Vital Signs-as noted below Exam: GEN: AAXO2, Not in distress HEENT: Atraumatic, normocephalic CARDIO: S1, S2 normal LUNGS: Few crackles heard at base- improved, no wheezing ABD: soft, non-tender, non-distended, no rebound or guarding, +BS, no CVA tenderness EXTREMITY: S/P right knee effusion- immobilizer present, no pedal edema Lab data as noted below. CHEST CTA for PULMONARY ARTERIES 1. Study is negative for pulmonary embolus. 2. Pulmonary edema superimposed upon pre-existing chronic fibrosis. ASSESSMENT & PLAN: Assessment & Plan : 61 yo F presents with multiple falls at home and weakness s/p Rt knee injury with effusion s/p aspiration. Weakness thought 2/2 UTI and she has had symptoms of dysuria for the past two weeks. While in hospital, continued to have malaise , became hypoxic, developed pneumonia. ACUTE ON CHRONIC HYPOXIC RESPIRATORY FAILURE- Improving, but again oxygen requirement going up. -Possibilities considered : ILD Flare, Probable Right sided pneumonia , CHF considered but clinically not over loaded, BNP 700s, though CT chest shows pulmonary edema. -S/P Oxymask and weaned down to oxygen nasal cannula (At home : 2 L PRN) -S/P IV Solu medrol---> Changed to prednisone BID per pulmonary, S/P IV Lasix 40 mg BID --> Gave 3 doses of IV lasix Gave a dose of Lasix 40 mg IV as I/O showed positive fluid balance, however, clinically doing well with no overt failure signs . Change to Lasix 40 mg PO today. -On levofloxacin for probable pneumonia. -Pulmonary on board - Appreciate inputs. Dornase/Vest ordered on 04/01/17 -Work up- CT chest , Speech evaluation ordered- Dental soft diet with aspiration precautions recommended. DIARRHEA- Improved Has hx of chronic diarrhea/ IBS and uses Imodium 2-3 times a day at home -Says it is a bit worse -C diff x 2 - negative. Repeat C diff on 04/01/17 negative. Will not order any repeat C diffs. GENERALIZED WEAKNESS/PHYSICAL DECONDITIONING -Multiple falls prior to admission. -PT/OT ordered S/P RIGHT KNEE EFFUSION with hx of OA/DJD -S/P Tapping by ortho done on 03/25/17 -Full leg knee immobilizer placed per ortho- weight bearing as tolerated, pain controlled -CT knee- no patellar fracture HTN- Presented with urgency. -Stable now HX OF CVA -Stable -Continue with aspiration precautions -Speech therapy evaluated- appreciate inputs SPINA BIFIDA ANEMIA, CHRONIC -Stable DVT prophylaxis Lovenox subcutaneous FULL CODE DISPOSITION -PT/OT ordered -[facility] when medically stable -Monitor due to persistent hypoxia Vital Signs: Date Time Temp Pulse Resp B/P (MAP) Pulse Ox O2 Delivery O2 Flow Rate FiO2 04/02/17 07:11 96 16 92 Nasal Cannula 4.0 04/02/17 07:10 96 16 92 Nasal Cannula 4.0 04/02/17 07:05 36.4 98 20 144/72 (96) 95 Nasal Cannula 4.0 04/02/17 00:00 Nasal Cannula 4.0 04/01/17 22:44 36.4 102 16 129/85 (100) 93 Nasal Cannula 3.5 04/01/17 20:00 Nasal Cannula 4.0 04/01/17 19:35 98 16 93 Nasal Cannula 4.0 04/01/17 19:10 98 16 93 Nasal Cannula 4.0 04/01/17 16:45 Nasal Cannula 4.0 04/01/17 16:18 36.5 105 16 146/84 (104) 90 Nasal Cannula 3.5 04/01/17 14:03 101 16 92 Nasal Cannula 4.0 Lab Results: Results Past 24 Hours Test 04/02/17 05:17 Range/Units White Blood Count 15.67 4.8-10.8 K/uL Red Blood Count 3.96 4.2-5.4 M/uL Hemoglobin 12.0 12.0-16.0 g/dL Hematocrit 36.6 37-47 % Mean Corpuscular Volume 92.4 80-100 fL Mean Corpuscular Hemoglobin 30.3 25-34 pg Mean Corpuscular Hemoglobin Concent 32.8 32-36 g/dl Platelet Count 339 130-400 K/uL Mean Platelet Volume 10.3 7.4-10.4 fL Neutrophils (%) (Auto) 67.8 % Lymphocytes (%) (Auto) 18.2 % Monocytes (%) (Auto) 11.4 % Eosinophils (%) (Auto) 1.0 % Basophils (%) (Auto) 0.1 % Neutrophils # (Auto) 10.64 1.4-6.5 K/uL Lymphocytes # (Auto) 2.85 1.2-3.4 K/uL Monocytes # (Auto) 1.78 0.11-0.59 K/uL Eosinophils # (Auto) 0.15 0-0.5 K/uL Basophils # (Auto) 0.01 0-0.2 K/uL RDW Standard Deviation 48.9 36.4-46.3 fL RDW Coefficient of Variation 14.7 11.5-14.5 % Immature Granulocyte % (Auto) 1.5 % Immature Granulocyte # (Auto) 0.24 0.00-0.02 K/uL Nucleated RBC Absolute Count (auto) 0.03 0-0 K/uL Nucleated Red Blood Cells % 0.2 % Microbiology Results 04/02/17 C.difficile Toxin B Gene (PCR) - Final, Complete No C. difficile toxin B gene detected
[2017-04-02] MEDS: LOPERAMIDE HCL 2 MG CAP PO PRN ×2 (12:58→19:03)
--- NOTE | 2017-04-02 17:06 | Pulmonology Progress Note ---
Pulmonary Progress Note Date of Service Apr 02, 2017. Attending Dr. Becerra Subjective The patient denies any acute shortness of breath but does feel after initiation vest physiotherapy and Dornase the consolidations and her lungs are "loosening. " Objective The patient is doing well today shows no signs of respiratory insufficiency during our conversation. VS: I/Os: total +1L SaO2: 62-95 FiO2: 4L RR: 16-20 Temp: 63.4 max RESP: Minimal rhonchi mildly decreased breath sounds at the bases CARD: S1 and S2 distant heart sounds with regular rate and rhythm EXT: Clubbing appreciated bilaterally in the upper extremities LABS: ABG (03/27/2017) 7.46/43/72/30 (NRB) A-a Gradient 491 WBC: 16K CT thorax 03/27/2017 compared to 01/13/2016 Continued diffuse emphysematous/cystic changes with increased consolidations in the dependent regions of the right hemithorax, signs of chronic aspiration versus mucous retention within the trachea and bilateral bronchi Medications: #1 Dornase nebulizer #2 prednisone 20 mg twice a day #3 levofloxacin 750 mg day 4 of 7 #4 Pulmicort 2 puffs twice a day #5 Xopenex/Atrovent nebulizers #6 Lovenox 40 mg subcutaneous daily Pulmonary function test (12/25/13) FEV1/FVC: 63 FEV1: 1.38/58% FVC: 2.17/74% T.38/93% VC: 2.52/87% DLCO: 41% with correction to 78% based off alveolar volume Assessment & Plan 61-year-old female admitted March 23 after multiple falls secondary to weakness from Spina Bifida but on arrival was noted to have low SaO2s. The patient has been treated with oxygen support as well as diuresis and antibiotics. I do believe after speaking to the patient and her that she could be having issues with aspiration which would be consistent with her previous and current CT findings. #1 Hypoxia: Patient is notably stable last 24 hours and describes loosening of the mucus in her lungs. At this time we'll continue current medical regimen as well as dornase and this physiotherapy as the patient is tolerating these well. She is also to undergo barium swallow tomorrow for possible aspiration. Data Medications: Current Inpatient Medications Medications (Trade) Dose Ordered Sig/Bishnu Route Start Time Stop Time Status Last Admin Dose Admin Enoxaparin Sodium (Lovenox Inj) 40 mg Q24H SQ 03/24/17 09:00 04/23/17 08:59 04/02/17 08:14 40 MG Ondansetron HCl (Zofran Inj) 4 mg Q6H PRN IV 03/24/17 00:30 04/23/17 00:29 Aspirin (Ecotrin Tab) 81 mg DAILY PO 03/24/17 09:00 04/23/17 08:59 04/02/17 08:14 81 MG Ipratropium [place] (Atrovent 0.02% 0.5MG/2.5ML Neb) 0.5 mg Q4H PRN INH 03/24/17 01:30 04/23/17 01:29 Levalbuterol (Xopenex 1.25MG/ 0.5ML Neb) 1.25 mg Q4H PRN INH 03/24/17 01:30 04/23/17 01:29 Miscellaneous Information (Order Awaiting Action) 1 ea QS N/A 03/24/17 08:00 04/23/17 07:59 03/27/17 22:52 1 EA Budesonide (Pulmicort Inhaler) 2 puffs BID INH 03/26/17 09:00 04/25/17 08:59 04/02/17 08:13 2 PUFFS Ipratropium [place] (Atrovent 0.02% 0.5MG/2.5ML Neb) 0.5 mg Q6R INH 03/26/17 03:00 04/25/17 02:59 04/02/17 14:09 0.5 MG Levalbuterol (Xopenex 1.25MG/ 0.5ML Neb) 1.25 mg Q6R INH 03/26/17 03:00 04/25/17 02:59 04/02/17 14:09 1.25 MG Loperamide HCl (Imodium Cap) 2 mg Q6H PRN PO 03/28/17 10:15 04/27/17 10:14 04/02/17 12:58 2 MG Furosemide (Lasix Tab) 40 mg QAM PO 03/30/17 09:00 04/29/17 08:59 04/02/17 08:14 40 MG Levofloxacin (Levaquin Tab) 750 mg DAILY@11 PO 03/29/17 11:00 04/05/17 10:59 04/02/17 08:14 750 MG Prednisone (PredniSONE TAB) 20 mg BIDM PO 03/30/17 17:00 04/29/17 16:59 04/02/17 16:51 20 MG Saccharomyces Boulardii (Florastor Cap) 250 mg DAILY PO 04/01/17 09:00 05/01/17 08:59 04/02/17 08:14 250 MG Acetaminophen (Tylenol Tab) 650 mg Q6H PRN PO 04/01/17 10:00 05/01/17 09:59 Zolpidem Tartrate (Ambien Tab) 5 mg HS PRN PO 04/01/17 10:00 05/01/17 09:59 04/01/17 22:36 5 MG Dornase [place] (Pulmozyme Inhalation Soln 2.5ml Amp) 2.5 ml BIDR INH 04/01/17 20:00 05/01/17 19:59 04/02/17 07:10 2.5 ML I & O: 24-Hour Column 04/03/17 08:00 Intake Total 275 ml Output Total 400 ml Balance -125 ml Vital Signs: Date Time Temp Pulse Resp B/P (MAP) Pulse Ox O2 Delivery O2 Flow Rate FiO2 04/02/17 16:03 36.9 102 20 118/75 (89) 92 Room Air 3.5 04/02/17 14:12 108 18 95 Nasal Cannula 4.0 04/02/17 08:45 Room Air 04/02/17 07:11 96 16 92 Nasal Cannula 4.0 04/02/17 07:10 96 16 92 Nasal Cannula 4.0 04/02/17 07:05 36.4 98 20 144/72 (96) 95 Nasal Cannula 4.0 04/02/17 00:00 Nasal Cannula 4.0 04/01/17 22:44 36.4 102 16 129/85 (100) 93 Nasal Cannula 3.5 04/01/17 20:00 Nasal Cannula 4.0 04/01/17 19:35 98 16 93 Nasal Cannula 4.0 04/01/17 19:10 98 16 93 Nasal Cannula 4.0 Laboratory Results: Last 24 Hours Test 04/02/17 05:17 White Blood Count 15.67 K/uL Red Blood Count 3.96 M/uL Hemoglobin 12.0 g/dL Hematocrit 36.6 % Mean Corpuscular Volume 92.4 fL Mean Corpuscular Hemoglobin 30.3 pg Mean Corpuscular Hemoglobin Concent 32.8 g/dl Platelet Count 339 K/uL Mean Platelet Volume 10.3 fL Neutrophils (%) (Auto) 67.8 % Lymphocytes (%) (Auto) 18.2 % Monocytes (%) (Auto) 11.4 % Eosinophils (%) (Auto) 1.0 % Basophils (%) (Auto) 0.1 % Neutrophils # (Auto) 10.64 K/uL Lymphocytes # (Auto) 2.85 K/uL Monocytes # (Auto) 1.78 K/uL Eosinophils # (Auto) 0.15 K/uL Basophils # (Auto) 0.01 K/uL RDW Standard Deviation 48.9 fL RDW Coefficient of Variation 14.7 % Immature Granulocyte % (Auto) 1.5 % Immature Granulocyte # (Auto) 0.24 K/uL Nucleated RBC Absolute Count (auto) 0.03 K/uL Nucleated Red Blood Cells % 0.2 %
[2017-04-02] MEDS: ZOLPIDEM TARTRATE 5 MG TAB PO PRN (23:05)
[2017-04-03] MEDS: IPRATROPIUM BROMIDE NEB SOLN 0.02% 2.5 ML VIAL INH SCH ×4 (02:05→19:23)
[2017-04-03] MEDS: LEVALBUTEROL 1.25MG/0.5ML NEB INH SCH ×4 (02:05→19:23)
[2017-04-03 07:10] VITALS: PULSE 94; O2SAT 90
[2017-04-03] MEDS: DORNASE ALFA (2500U) 2.5MG/2.5ML INH SCH ×2 (07:10→19:23)
[2017-04-03] MEDS: SACCHAROMYCES BOUL (FLORASTOR) 250 MG CAP PO SCH (07:26)
[2017-04-03] MEDS: FUROSEMIDE 40 MG TAB PO SCH (07:26)
[2017-04-03] MEDS: LEVOFLOXACIN 750 MG TAB PO SCH (07:26)
[2017-04-03] MEDS: ENOXAPARIN 40 MG/0.4 ML SYR SQ SCH (07:26)
[2017-04-03] MEDS: BUDESONIDE 90 MCG INH INH SCH ×2 (07:26→19:55)
[2017-04-03] MEDS: ASPIRIN 81 MG ECTAB PO SCH (07:26)
[2017-04-03 07:34] LABS: HEMATOCRIT 37.8 % (37-47); MEAN CORPUSCULAR HEMOGLOBIN 29.9 pg (25-34); MEAN CORPUSCULAR HGB CONC 32.5 g/dl (32-36); MEAN PLATELET VOLUME 9.9 fL (7.4-10.4); PLATELET COUNT 355 K/uL (130-400); RED BLOOD COUNT 4.11 M/uL (4.2-5.4)
[2017-04-03 07:48] VITALS: BP 117/73; PULSE 93; TEMP 36.9; O2SAT 93
[2017-04-03 08:08] LABS: BUN/CREATININE RATIO 26.4 (10-20); CREATININE 0.69 mg/dl (0.60-1.20); POTASSIUM 3.9 mmol/L (3.5-5.1)
--- NOTE | 2017-04-03 09:46 | DIAGNOSTIC IMAGING REPORT ---
(BARIUM SWALLOW) ESOPHAGUS CLINICAL HISTORY: 61 years-old Female presenting with aspiration. TECHNIQUE: A standard air contrast barium esophagram is performed. Multiple spot images of the esophagus are acquired both upright and prone. COMPARISON: None. FINDINGS: The patient was able to ingest barium and the barium pill without difficulty. No aspiration. Tertiary contractions seen throughout the examination. Contrast passes through the esophagus to the stomach without evidence of holdup or leakage. Normal mucosal pattern. No evidence of intrinsic or extrinsic mass lesion. The gastroesophageal junction distended normally. A small sliding hiatal hernia noted. No gastroesophageal reflux was observed. Fluoroscopy time: 1 minute. Fluoroscopic images: 25. IMPRESSION: 1. Evidence of esophageal dysmotility, likely presbyesophagus. No evidence of aspiration. 2. Small hiatal hernia. Electronically signed by: Toney Gan 04/03/2017 9:45 AM Dictated Date/Time: 04/03/2017 9:40 AM
--- NOTE | 2017-04-03 09:59 | Progress Note ---
Internal Med Progress Note Date of Service: Apr 03, 2017. Provider Documentation: SUBJECTIVE : Patient is feeling better. Loose stools + better SOB has improved. Coughing present but not bringing up much. Though feels like its loosening up. No fever, chills, chest pain, vomiting, nausea. Continues to be on 3.5 L oxygen with sao2 93% OBJECTIVE : Vital Signs-as noted below Exam: GEN: AAXO2, Not in distress HEENT: Atraumatic, normocephalic CARDIO: S1, S2 normal LUNGS: Few crackles heard at base- improved, no wheezing ABD: soft, non-tender, non-distended, no rebound or guarding, +BS, no CVA tenderness EXTREMITY: S/P right knee effusion- immobilizer present, no pedal edema Lab data as noted below. CHEST CTA for PULMONARY ARTERIES 1. Study is negative for pulmonary embolus. 2. Pulmonary edema superimposed upon pre-existing chronic fibrosis. ASSESSMENT & PLAN: Assessment & Plan : 61 yo F presents with multiple falls at home and weakness s/p Rt knee injury with effusion s/p aspiration. Weakness thought 2/2 UTI and she has had symptoms of dysuria for the past two weeks. While in hospital, continued to have malaise , became hypoxic, developed pneumonia. Hypoxia improved with rx with lasix, antibiotics, steroids. But later again worsened. ACUTE ON CHRONIC HYPOXIC RESPIRATORY FAILURE- Improving, but again oxygen requirement going up. -Possibilities considered : ILD Flare, Probable Right sided pneumonia , CHF considered but clinically not over loaded, BNP 700s, though CT chest shows pulmonary edema. Per discussion with Pulmonary, likely aspiration and mucus secretions contributing to hypoxia. -S/P Oxymask and weaned down to 3.5 L oxygen nasal cannula (At home : 2 L PRN) -S/P IV Solu medrol ---> Changed to prednisone BID per pulmonary (Day 4 of 20 mg BID), S/P IV Lasix 40 mg BID --> Gave 3 doses of IV lasix as I/O showed positive fluid balance, however, clinically doing well with no overt failure signs . Changed to Lasix 40 mg PO on 04/02/17. -On levofloxacin for probable pneumonia. (Day 7). Okay to discontinue today -Pulmonary on board - Appreciate inputs. Dornase/Vest ordered on 04/01/17 -Work up- CT chest , Speech evaluation ordered- Dental soft diet with aspiration precautions recommended. PLAN: Concerned about aspiration per pulmonary.. Had a speech evaluation done during this admission. Re ordered by pulmonary with barium swallow evaluation today. DIARRHEA- Improved Has hx of chronic diarrhea/ IBS and uses Imodium 2-3 times a day at home -Has been a bit worse in hospital. Electrolytes stable though. -C diff x 2 - negative. Repeat C diff on 04/01/17 negative. Will not order any repeat C diffs. GENERALIZED WEAKNESS/PHYSICAL DECONDITIONING -Multiple falls prior to admission. -PT/OT ordered S/P RIGHT KNEE EFFUSION with hx of OA/DJD -S/P Tapping by ortho done on 03/25/17 -Full leg knee immobilizer placed per ortho- weight bearing as tolerated, pain controlled -CT knee- no patellar fracture HTN- Presented with urgency. -Stable now HX OF CVA -Stable -Continue with aspiration precautions -Speech therapy evaluated- appreciate inputs SPINA BIFIDA ANEMIA, CHRONIC -Stable DVT prophylaxis Lovenox subcutaneous FULL CODE DISPOSITION -PT/OT ordered -Would need to go to rehab. -Monitor due to persistent hypoxia, follow up barium swallow results today -Need to evaluate oxygen need prior to discharge, will likely need higher levels of oxygen. Vital Signs: Date Time Temp Pulse Resp B/P (MAP) Pulse Ox O2 Delivery O2 Flow Rate FiO2 04/03/17 07:48 36.9 93 18 117/73 (88) 93 3.5 04/03/17 07:10 94 18 90 Nasal Cannula 4.0 04/03/17 00:00 Nasal Cannula 4.0 Humidified Oxygen 04/02/17 23:44 36.8 99 22 145/74 (97) 91 Nasal Cannula 4.0 04/02/17 20:00 Nasal Cannula 4.0 Humidified Oxygen 04/02/17 19:25 92 18 93 Nasal Cannula 4.0 04/02/17 16:03 36.9 102 20 118/75 (89) 92 Room Air 3.5 04/02/17 14:12 108 18 95 Nasal Cannula 4.0 Lab Results: Results Past 24 Hours Test 04/03/17 06:41 Range/Units White Blood Count 16.30 4.8-10.8 K/uL Red Blood Count 4.11 4.2-5.4 M/uL Hemoglobin 12.3 12.0-16.0 g/dL Hematocrit 37.8 37-47 % Mean Corpuscular Volume 92.0 80-100 fL Mean Corpuscular Hemoglobin 29.9 25-34 pg Mean Corpuscular Hemoglobin Concent 32.5 32-36 g/dl RDW Standard Deviation 50.1 36.4-46.3 fL RDW Coefficient of Variation 15.0 11.5-14.5 % Platelet Count 355 130-400 K/uL Mean Platelet Volume 9.9 7.4-10.4 fL Sodium Level 133 136-145 mmol/L Potassium Level 3.9 3.5-5.1 mmol/L Chloride Level 95 98-107 mmol/L Carbon Dioxide Level 30 21-32 mmol/L Anion Gap 8.0 3-11 mmol/L Blood Urea Nitrogen 18 7-18 mg/dl Creatinine 0.69 0.60-1.20 mg/dl Est Creatinine Clear Calc Drug Dose 69.9 ml/min Estimated GFR () 108.1 Estimated GFR (Non- 93.3 BUN/Creatinine Ratio 26.4 10-20 Random Glucose 103 70-99 mg/dl Calcium Level 9.0 8.5-10.1 mg/dl
[2017-04-03] MEDS: LOPERAMIDE HCL 2 MG CAP PO PRN (13:27)
[2017-04-03] MEDS ORDERED: SODIUM CHLORIDE 0.65% NA SOLN 45 ML (OCEAN) PRN (14:15)
[2017-04-03 14:30] VITALS: PULSE 100; O2SAT 91
--- NOTE | 2017-04-03 14:36 | Pulmonology Progress Note ---
Pulmonary Progress Note Date of Service Apr 03, 2017. Attending Dr. De La Paz Subjective Patient seen and examined. Complains of nasal congestion. Was able to expectorate brownish colored sputum this morning. Denies any fever, chills, chest pain. Objective The patient is doing well today shows no signs of respiratory insufficiency during our conversation. Patient underwent barium swallow that shows esophageal dysmotility. VS: I/Os: -850 ml SaO2: 90-93 FiO2: 4L RR: 16-20 Temp: Afebrile RESP: Minimal rhonchi mildly decreased breath sounds at the bases CARD: S1 and S2 distant heart sounds with regular rate and rhythm EXT: Clubbing appreciated bilaterally in the upper extremities LABS: ABG (03/27/2017) 7.46/43/72/30 (NRB) A-a Gradient 491 WBC: 16K CT thorax 03/27/2017 compared to 01/13/2016 Continued diffuse emphysematous/cystic changes with increased consolidations in the dependent regions of the right hemithorax, signs of chronic aspiration versus mucous retention within the trachea and bilateral bronchi Medications: #1 Dornase nebulizer #2 prednisone 20 mg twice a day #3 levofloxacin 750 mg day 5 of 7 #4 Pulmicort 2 puffs twice a day #5 Xopenex/Atrovent nebulizers #6 Lovenox 40 mg subcutaneous daily Pulmonary function test (12/25/13) FEV1/FVC: 63 FEV1: 1.38/58% FVC: 2.17/74% T.38/93% VC: 2.52/87% DLCO: 41% with correction to 78% based off alveolar volume Assessment & Plan 61-year-old female admitted for hypoxia after having multiple mechanical falls. She has been receiving has been responding well to supportive treatment with antibiotics, diuresis and oxygen therapy. #1 Hypoxemia: likely secondary to aspiration pneumonia/pneumonitis due to inability to clear secretions. She states that mucus is clearing and she is having a productive cough. -c/w current medical regimen -c/w dornase and chest PT -Added saline nasal spray for nasal congestion -consider aspiration precautions Data Medications: Current Inpatient Medications Medications (Trade) Dose Ordered Sig/Bishnu Route Start Time Stop Time Status Last Admin Dose Admin Enoxaparin Sodium (Lovenox Inj) 40 mg Q24H SQ 03/24/17 09:00 04/23/17 08:59 04/03/17 07:26 40 MG Ondansetron HCl (Zofran Inj) 4 mg Q6H PRN IV 03/24/17 00:30 04/23/17 00:29 Aspirin (Ecotrin Tab) 81 mg DAILY PO 03/24/17 09:00 04/23/17 08:59 04/03/17 07:26 81 MG Ipratropium [place] (Atrovent 0.02% 0.5MG/2.5ML Neb) 0.5 mg Q4H PRN INH 03/24/17 01:30 04/23/17 01:29 Levalbuterol (Xopenex 1.25MG/ 0.5ML Neb) 1.25 mg Q4H PRN INH 03/24/17 01:30 04/23/17 01:29 Miscellaneous Information (Order Awaiting Action) 1 ea QS N/A 03/24/17 08:00 04/23/17 07:59 03/27/17 22:52 1 EA Budesonide (Pulmicort Inhaler) 2 puffs BID INH 03/26/17 09:00 04/25/17 08:59 04/03/17 07:26 2 PUFFS Ipratropium [place] (Atrovent 0.02% 0.5MG/2.5ML Neb) 0.5 mg Q6R INH 03/26/17 03:00 04/25/17 02:59 04/03/17 07:10 0.5 MG Levalbuterol (Xopenex 1.25MG/ 0.5ML Neb) 1.25 mg Q6R INH 03/26/17 03:00 04/25/17 02:59 04/03/17 07:10 1.25 MG Loperamide HCl (Imodium Cap) 2 mg Q6H PRN PO 03/28/17 10:15 04/27/17 10:14 04/03/17 13:27 2 MG Furosemide (Lasix Tab) 40 mg QAM PO 03/30/17 09:00 04/29/17 08:59 04/03/17 07:26 40 MG Levofloxacin (Levaquin Tab) 750 mg DAILY@11 PO 03/29/17 11:00 04/05/17 10:59 04/03/17 07:26 750 MG Prednisone (PredniSONE TAB) 20 mg BIDM PO 03/30/17 17:00 04/29/17 16:59 04/03/17 07:26 20 MG Saccharomyces Boulardii (Florastor Cap) 250 mg DAILY PO 04/01/17 09:00 05/01/17 08:59 04/03/17 07:26 250 MG Acetaminophen (Tylenol Tab) 650 mg Q6H PRN PO 04/01/17 10:00 05/01/17 09:59 Zolpidem Tartrate (Ambien Tab) 5 mg HS PRN PO 04/01/17 10:00 05/01/17 09:59 04/02/17 23:05 5 MG Dornase Dominic (Pulmozyme Inhalation Soln 2.5ml Amp) 2.5 ml BIDR INH 04/01/17 20:00 05/01/17 19:59 04/03/17 07:10 2.5 ML Vital Signs: Date Time Temp Pulse Resp B/P (MAP) Pulse Ox O2 Delivery O2 Flow Rate FiO2 04/03/17 08:45 Nasal Cannula 4.0 04/03/17 07:48 36.9 93 18 117/73 (88) 93 3.5 04/03/17 07:10 94 18 90 Nasal Cannula 4.0 04/03/17 00:00 Nasal Cannula 4.0 Humidified Oxygen 04/02/17 23:44 36.8 99 22 145/74 (97) 91 Nasal Cannula 4.0 04/02/17 20:00 Nasal Cannula 4.0 Humidified Oxygen 04/02/17 19:25 92 18 93 Nasal Cannula 4.0 04/02/17 16:03 36.9 102 20 118/75 (89) 92 Room Air 3.5 04/02/17 14:12 108 18 95 Nasal Cannula 4.0 Laboratory Results: Last 24 Hours Test 04/03/17 06:41 White Blood Count 16.30 K/uL Red Blood Count 4.11 M/uL Hemoglobin 12.3 g/dL Hematocrit 37.8 % Mean Corpuscular Volume 92.0 fL Mean Corpuscular Hemoglobin 29.9 pg Mean Corpuscular Hemoglobin Concent 32.5 g/dl RDW Standard Deviation 50.1 fL RDW Coefficient of Variation 15.0 % Platelet Count 355 K/uL Mean Platelet Volume 9.9 fL Sodium Level 133 mmol/L Potassium Level 3.9 mmol/L Chloride Level 95 mmol/L Carbon Dioxide Level 30 mmol/L Anion Gap 8.0 mmol/L Blood Urea Nitrogen 18 mg/dl Creatinine 0.69 mg/dl Est Creatinine Clear Calc Drug Dose 69.9 ml/min Estimated GFR () 108.1 Estimated GFR (Non- 93.3 BUN/Creatinine Ratio 26.4 Random Glucose 103 mg/dl Calcium Level 9.0 mg/dl
[2017-04-03 14:44] VITALS: BP 131/75; PULSE 100; TEMP 36.5; O2SAT 91
[2017-04-03 16:00] VITALS: O2SAT 92
[2017-04-03 19:23] VITALS: PULSE 92; O2SAT 92
[2017-04-03] MEDS: ZOLPIDEM TARTRATE 5 MG TAB PO PRN (22:25)
[2017-04-04] VITALS (11 sets, daily range): BP systolic 111–153; BP diastolic 73–84; PULSE 88–99; TEMP 36.4–37; O2SAT 91–93
[2017-04-04] MEDS: LEVALBUTEROL 1.25MG/0.5ML NEB INH SCH ×5 (01:28→20:13)
[2017-04-04] MEDS: IPRATROPIUM BROMIDE NEB SOLN 0.02% 2.5 ML VIAL INH SCH ×5 (01:28→20:13)
[2017-04-04] MEDS: DORNASE ALFA (2500U) 2.5MG/2.5ML INH SCH ×2 (07:15→19:08)
[2017-04-04] MEDS: SACCHAROMYCES BOUL (FLORASTOR) 250 MG CAP PO SCH (08:29)
[2017-04-04] MEDS: BUDESONIDE 90 MCG INH INH SCH ×2 (08:29→20:41)
[2017-04-04] MEDS: FUROSEMIDE 40 MG TAB PO SCH (08:30)
[2017-04-04] MEDS: ASPIRIN 81 MG ECTAB PO SCH (08:30)
[2017-04-04] MEDS: ENOXAPARIN 40 MG/0.4 ML SYR SQ SCH (08:31)
[2017-04-04] MEDS: LOPERAMIDE HCL 2 MG CAP PO PRN ×2 (09:39→19:43)
[2017-04-04] MEDS: LEVOFLOXACIN 750 MG TAB PO SCH (10:37)
--- NOTE | 2017-04-04 17:59 | Progress Note ---
Internal Med Progress Note Date of Service: Apr 04, 2017. Provider Documentation: SUBJECTIVE: The patient was seen and examined A little better today Barium Swallow has been negative for Aspiration Denies any symptoms today OBJECTIVE: Vital Signs-as noted below Exam: General-no distress at rest Eyes-normal ENT-normal Neck-Supple Lungs-Decreased breath sound bilaterally Occasional bibasilar crackles Heart-Regular,no murmur appreciated Abdomen-Benign Extremities-No edema Neuro-AAOx3 Generally weak and lethargic Lab data as noted below. ASSESSMENT & PLAN: ACUTE ON CHRONIC HYPOXIC RESPIRATORY FAILURE Differential includes:ILD Flare, Probable Right sided pneumonia , CHF considered but clinically and CT chest shows pulmonary edema. -S/P Oxymask and weaned down to 3.5 L oxygen nasal cannula (At home : 2 L PRN) -S/P IV Solu medrol ---> Changed to prednisone BID per pulmonary (Day 4 of 20 mg BID), S/P IV Lasix 40 mg BID --> Gave 3 doses of IV lasix as I/O showed positive fluid balance, -Changed to Lasix 40 mg PO on 04/02/17. -On levofloxacin for probable pneumonia. (Day 8). -Pulmonary on board - Appreciate inputs. Dornase/Vest ordered on 04/01/17-can be discontinued -Barium Swallow is negative for any aspiration DIARRHEA- Improved Has hx of chronic diarrhea/ IBS and uses Imodium 2-3 times a day at home -Has been a bit worse in hospital. Electrolytes stable though. -C diff x 2 - negative. Repeat C diff on 04/01/17 negative. -settling down GENERALIZED WEAKNESS/PHYSICAL DECONDITIONING -Multiple falls prior to admission. -PT/OT ordered S/P RIGHT KNEE EFFUSION with hx of OA/DJD -S/P Tapping by ortho done on 03/25/17 -Full leg knee immobilizer placed per ortho- weight bearing as tolerated, pain controlled -CT knee- no patellar fracture -clinically better today HTN- Presented with urgency. -Stable now HX OF CVA -Stable -Continue with aspiration precautions -Speech therapy evaluated- appreciate inputs SPINA BIFIDA s/p surgical correction ANEMIA, CHRONIC -Stable DVT prophylaxis Lovenox subcutaneous FULL CODE DISPOSITION -PT/OT ordered -Would need to go to rehab. Vital Signs: Date Time Temp Pulse Resp B/P (MAP) Pulse Ox O2 Delivery O2 Flow Rate FiO2 04/04/17 16:06 93 Nasal Cannula 4.0 60 04/04/17 15:39 36.4 99 18 111/73 (86) 93 Nasal Cannula 4.0 04/04/17 09:29 91 04/04/17 08:00 91 Nasal Cannula 4.0 04/04/17 07:46 37.0 94 18 118/76 (90) 91 4.0 04/04/17 07:15 88 18 91 Nasal Cannula 4.0 04/04/17 01:28 88 18 92 Nasal Cannula 4.0 04/04/17 00:45 Nasal Cannula 4.0 04/04/17 00:24 37.0 94 22 118/76 (90) 92 Nasal Cannula 4.0 04/03/17 19:23 92 18 92 Nasal Cannula 4.0
--- NOTE | 2017-04-04 19:41 | Pulmonology Progress Note ---
Pulmonary Progress Note Date of Service Apr 04, 2017. Attending Dr. De La Paz Subjective Patient seen and examined at bedside. She states that she is feeling a lot better today. Having decreased shortness of breath with minimal cough. Able to speak in full sentences today. Per nursing, patient was off oxygen this afternoon and quickly desaturated to 60 's. Objective The patient is doing well today shows no signs of respiratory insufficiency during our conversation. Patient underwent barium swallow that shows esophageal dysmotility. VS: I/Os: almost 2L negative SaO2: 91-93 FiO2: 4L RR: 16-20 Temp: Afebrile RESP: fine crackles b/l lung mora CARD: S1 and S2 distant heart sounds with regular rate and rhythm EXT: Clubbing appreciated bilaterally in the upper extremities LABS: reviewed ABG (03/27/2017) 7.46/43/72/30 (NRB) A-a Gradient 491 CT thorax 03/27/2017 compared to 01/13/2016 Continued diffuse emphysematous/cystic changes with increased consolidations in the dependent regions of the right hemithorax, signs of chronic aspiration versus mucous retention within the trachea and bilateral bronchi Medications: #1 Dornase nebulizer #2 prednisone 20 mg twice a day #3 levofloxacin 750 mg day 6 of 7 #4 Pulmicort 2 puffs twice a day #5 Xopenex/Atrovent nebulizers #6 Lovenox 40 mg subcutaneous daily Pulmonary function test (12/25/13) FEV1/FVC: 63 FEV1: 1.38/58% FVC: 2.17/74% T.38/93% VC: 2.52/87% DLCO: 41% with correction to 78% based off alveolar volume Assessment & Plan 61-year-old female with history of COPD and intersitial lung disease admitted for hypoxia after having multiple mechanical falls. She has been receiving has been responding well to supportive treatment with antibiotics, diuresis and oxygen therapy. Symptoms ikely secondary to aspiration pneumonia/pneumonitis due to inability to clear secretions. She states that mucus is clearing and she is having a productive cough. Feels as if her symptoms are improving Acute on chronic hypoxemic respiratory failure Emphysema Interstitial Lung disease -c/w current medical regimen -keep SaO2 btw 88-92% - chest PT, discontinue dornase alpha -c/w saline nasal spray for nasal congestion -consider aspiration precautions -Will likely need pulmonary rehab as outpatient Data Medications: Current Inpatient Medications Medications (Trade) Dose Ordered Sig/Bishnu Route Start Time Stop Time Status Last Admin Dose Admin Enoxaparin Sodium (Lovenox Inj) 40 mg Q24H SQ 03/24/17 09:00 04/23/17 08:59 04/04/17 08:31 40 MG Ondansetron HCl (Zofran Inj) 4 mg Q6H PRN IV 03/24/17 00:30 04/23/17 00:29 Aspirin (Ecotrin Tab) 81 mg DAILY PO 03/24/17 09:00 04/23/17 08:59 04/04/17 08:30 81 MG Ipratropium [place] (Atrovent 0.02% 0.5MG/2.5ML Neb) 0.5 mg Q4H PRN INH 03/24/17 01:30 04/23/17 01:29 Levalbuterol (Xopenex 1.25MG/ 0.5ML Neb) 1.25 mg Q4H PRN INH 03/24/17 01:30 04/23/17 01:29 Miscellaneous Information (Order Awaiting Action) 1 ea QS N/A 03/24/17 08:00 04/23/17 07:59 03/27/17 22:52 1 EA Budesonide (Pulmicort Inhaler) 2 puffs BID INH 03/26/17 09:00 04/25/17 08:59 04/04/17 08:29 2 PUFFS Ipratropium [place] (Atrovent 0.02% 0.5MG/2.5ML Neb) 0.5 mg Q6R INH 03/26/17 03:00 04/25/17 02:59 04/04/17 07:15 0.5 MG Levalbuterol (Xopenex 1.25MG/ 0.5ML Neb) 1.25 mg Q6R INH 03/26/17 03:00 04/25/17 02:59 04/04/17 07:15 1.25 MG Loperamide HCl (Imodium Cap) 2 mg Q6H PRN PO 03/28/17 10:15 04/27/17 10:14 04/04/17 09:39 2 MG Furosemide (Lasix Tab) 40 mg QAM PO 03/30/17 09:00 8/5/17 08:59 04/04/17 08:30 40 MG Levofloxacin (Levaquin Tab) 750 mg DAILY@11 PO 03/29/17 11:00 04/05/17 10:59 04/04/17 10:37 750 MG Prednisone (PredniSONE TAB) 20 mg BIDM PO 03/30/17 17:00 04/29/17 16:59 04/04/17 17:10 20 MG Saccharomyces Boulardii (Florastor Cap) 250 mg DAILY PO 04/01/17 09:00 05/01/17 08:59 04/04/17 08:29 250 MG Acetaminophen (Tylenol Tab) 650 mg Q6H PRN PO 04/01/17 10:00 05/01/17 09:59 Zolpidem Tartrate (Ambien Tab) 5 mg HS PRN PO 04/01/17 10:00 05/01/17 09:59 04/03/17 22:25 5 MG Dornase [place]ic (Pulmozyme Inhalation Soln 2.5ml Amp) 2.5 ml BIDR INH 04/01/17 20:00 05/01/17 19:59 04/04/17 19:08 2.5 ML Sodium Chloride ([place] Nasal [place]) 2 sprays BID PRN NA 04/03/17 14:15 05/03/17 14:14 I & O: 24-Hour Column 04/05/17 08:00 Intake Total 575 ml Output Total 500 ml Balance 75 ml Vital Signs: Date Time Temp Pulse Resp B/P (MAP) Pulse Ox O2 Delivery O2 Flow Rate FiO2 04/04/17 19:08 88 18 92 Nasal Cannula 4.0 04/04/17 16:06 93 Nasal Cannula 4.0 60 04/04/17 15:39 36.4 99 18 111/73 (86) 93 Nasal Cannula 4.0 04/04/17 09:29 91 04/04/17 08:00 91 Nasal Cannula 4.0 04/04/17 07:46 37.0 94 18 118/76 (90) 91 4.0 04/04/17 07:15 88 18 91 Nasal Cannula 4.0 04/04/17 01:28 88 18 92 Nasal Cannula 4.0 04/04/17 00:45 Nasal Cannula 4.0 04/04/17 00:24 37.0 94 22 118/76 (90) 92 Nasal Cannula 4.0 04/03/17 19:23 92 18 92 Nasal Cannula 4.0
[2017-04-04] MEDS: ZOLPIDEM TARTRATE 5 MG TAB PO PRN (23:01)
[2017-04-05] VITALS (9 sets, daily range): BP systolic 117–121; BP diastolic 76–78; PULSE 86–101; TEMP 36.3–36.7; O2SAT 90–95
[2017-04-05] MEDS: LEVALBUTEROL 1.25MG/0.5ML NEB INH SCH ×4 (01:50→19:15)
[2017-04-05] MEDS: IPRATROPIUM BROMIDE NEB SOLN 0.02% 2.5 ML VIAL INH SCH ×4 (01:50→19:15)
[2017-04-05 06:44] LABS: BASO % 0.1 %; BASO ABS # 0.01 K/uL (0-0.2); COMPLETE YES; EOS % 0.5 %; HEMATOCRIT 38.2 % (37-47); IG% 1.9 %; LYMPH % 14.4 %; LYMPH ABS # 2.34 K/uL (1.2-3.4); MEAN CELL VOLUME 90.5 fL (80-100); MEAN CORPUSCULAR HEMOGLOBIN 29.6 pg (25-34); MEAN CORPUSCULAR HGB CONC 32.7 g/dl (32-36); MEAN PLATELET VOLUME 9.5 fL (7.4-10.4); MONO % 9.4 %; NEUT % 73.7 %; PLATELET COUNT 335 K/uL (130-400); RED BLOOD COUNT 4.22 M/uL (4.2-5.4)
[2017-04-05 07:24] LABS: CREATININE 0.66 mg/dl (0.60-1.20)
[2017-04-05] MEDS: SACCHAROMYCES BOUL (FLORASTOR) 250 MG CAP PO SCH (09:21)
[2017-04-05] MEDS: BUDESONIDE 90 MCG INH INH SCH ×2 (09:21→20:11)
[2017-04-05] MEDS: ASPIRIN 81 MG ECTAB PO SCH (09:21)
[2017-04-05] MEDS: FUROSEMIDE 40 MG TAB PO SCH (09:22)
[2017-04-05] MEDS: ENOXAPARIN 40 MG/0.4 ML SYR SQ SCH (09:23)
--- NOTE | 2017-04-05 16:47 | Progress Note ---
Internal Med Progress Note Date of Service: Apr 05, 2017. Provider Documentation: SUBJECTIVE: The patient was seen and examined Barium Swallow has been negative for Aspiration Much better today OBJECTIVE: Vital Signs-as noted below Exam: General-no distress at rest Eyes-normal ENT-normal Neck-Supple Lungs-Decreased breath sound bilaterally Occasional bibasilar crackles -improves further Heart-Regular,no murmur appreciated Abdomen-Benign Extremities-No edema Neuro-AAOx3 Generally weak and lethargic Lab data as noted below. ASSESSMENT & PLAN: ACUTE ON CHRONIC HYPOXIC RESPIRATORY FAILURE Differential includes:ILD Flare, Probable Right sided pneumonia , CHF considered but clinically and CT chest shows pulmonary edema. -S/P Oxymask and weaned down to 3.5 L oxygen nasal cannula (At home : 2 L PRN) -S/P IV Solu medrol ---> Changed to prednisone BID per pulmonary (Day 4 of 20 mg BID), S/P IV Lasix 40 mg BID --> Gave 3 doses of IV lasix as I/O showed positive fluid balance, -Changed to Lasix 40 mg PO on 04/02/17. -On levofloxacin for probable pneumonia. (Day 9)-discontinue on 04/06/17. -Pulmonary on board - Appreciate inputs. Dornase/Vest ordered on 04/01/17-can be discontinued -Barium Swallow is negative for any aspiration -Clinically much better DIARRHEA- Improved Has hx of chronic diarrhea/ IBS and uses Imodium 2-3 times a day at home -Has been a bit worse in hospital. Electrolytes stable though. -C diff x 2 - negative. Repeat C diff on 04/01/17 negative. -resolved GENERALIZED WEAKNESS/PHYSICAL DECONDITIONING -Multiple falls prior to admission. -PT/OT ordered-recommended Rehab S/P RIGHT KNEE EFFUSION with hx of OA/DJD -S/P Tapping by ortho done on 03/25/17 -Full leg knee immobilizer placed per ortho- weight bearing as tolerated, pain controlled -CT knee- no patellar fracture -clinically better today HTN- Presented with urgency. -Stable now HX OF CVA -Stable -Continue with aspiration precautions -Speech therapy evaluated- appreciate inputs SPINA BIFIDA s/p surgical correction ANEMIA, CHRONIC -Stable DVT prophylaxis Lovenox subcutaneous FULL CODE DISPOSITION -PT/OT ordered -Would need to go to rehab. -denied from [facility] -awaiting placement Vital Signs: Date Time Temp Pulse Resp B/P (MAP) Pulse Ox O2 Delivery O2 Flow Rate FiO2 04/05/17 15:17 36.7 101 18 121/76 (91) 90 Nasal Cannula 4.0 04/05/17 15:03 95 04/05/17 14:23 96 18 94 Nasal Cannula 4.0 04/05/17 08:00 92 Nasal Cannula 4.0 04/05/17 07:11 86 18 92 Nasal Cannula 4.0 04/05/17 07:08 36.3 90 18 117/78 (91) 91 Nasal Cannula 4.0 04/05/17 01:50 89 18 94 Nasal Cannula 4.0 04/05/17 00:24 Nasal Cannula 4.0 04/04/17 23:54 36.8 92 20 153/84 (107) 92 Nasal Cannula 4.0 04/04/17 20:13 89 18 92 Nasal Cannula 4.0 04/04/17 19:08 88 18 92 Nasal Cannula 4.0 Lab Results: Results Past 24 Hours Test 04/05/17 06:33 Range/Units White Blood Count 16.20 4.8-10.8 K/uL Red Blood Count 4.22 4.2-5.4 M/uL Hemoglobin 12.5 12.0-16.0 g/dL Hematocrit 38.2 37-47 % Mean Corpuscular Volume 90.5 80-100 fL Mean Corpuscular Hemoglobin 29.6 25-34 pg Mean Corpuscular Hemoglobin Concent 32.7 32-36 g/dl Platelet Count 335 130-400 K/uL Mean Platelet Volume 9.5 7.4-10.4 fL Neutrophils (%) (Auto) 73.7 % Lymphocytes (%) (Auto) 14.4 % Monocytes (%) (Auto) 9.4 % Eosinophils (%) (Auto) 0.5 % Basophils (%) (Auto) 0.1 % Neutrophils # (Auto) 11.93 1.4-6.5 K/uL Lymphocytes # (Auto) 2.34 1.2-3.4 K/uL Monocytes # (Auto) 1.53 0.11-0.59 K/uL Eosinophils # (Auto) 0.08 0-0.5 K/uL Basophils # (Auto) 0.01 0-0.2 K/uL RDW Standard Deviation 49.0 36.4-46.3 fL RDW Coefficient of Variation 14.8 11.5-14.5 % Immature Granulocyte % (Auto) 1.9 % Immature Granulocyte # (Auto) 0.31 0.00-0.02 K/uL Creatinine 0.66 0.60-1.20 mg/dl Est Creatinine Clear Calc Drug Dose 73.1 ml/min Estimated GFR () 109.7 Estimated GFR (Non- 94.7
--- NOTE | 2017-04-05 16:57 | Pulmonology Progress Note ---
Pulmonary Progress Note Date of Service Apr 05, 2017. Attending Dr. De La Paz Objective Patient seen examined today. Doing well. Speaking in full sentences without respiratory distress. Awaiting discharge to acute rehab facility. VS: reviewied I/Os: 1L negative SaO2: 91-94 FiO2: 4L RR: 18-20 Temp: Afebrile RESP: fine crackles b/l lung mora CARD: S1 and S2 distant heart sounds with regular rate and rhythm EXT: Clubbing appreciated bilaterally in the upper extremities LABS: reviewed ABG (03/27/2017) 7.46/43/72/30 (NRB) A-a Gradient 491 CT thorax 03/27/2017 compared to 01/13/2016 Continued diffuse emphysematous/cystic changes with increased consolidations in the dependent regions of the right hemithorax, signs of chronic aspiration versus mucous retention within the trachea and bilateral bronchi Medications reviewed Pulmonary function test (12/25/13) FEV1/FVC: 63 FEV1: 1.38/58% FVC: 2.17/74% T.38/93% VC: 2.52/87% DLCO: 41% with correction to 78% based off alveolar volume Assessment & Plan 61-year-old female with history of COPD and intersitial lung disease admitted for hypoxia after having multiple mechanical falls. She has been receiving has been responding well to supportive treatment with antibiotics, diuresis and oxygen therapy. Symptoms ikely secondary to aspiration pneumonia/pneumonitis due to inability to clear secretions. She states that mucus is clearing and she is having a productive cough. Feels as if her symptoms are improving. Acute on chronic hypoxemic respiratory failure Emphysema Interstitial Lung disease -c/w current medical regimenm, -keep SaO2 btw 88-92% - chest PT, discontinue dornase alpha -c/w saline nasal spray for nasal congestion -consider aspiration precautions -Will likely need pulmonary rehab as outpatient -Possible discharge tomorrow with tapering steroid and inhaled bronchodilators She is clinically optimized from a pulmonology standpoint. She will require continued LTOT. She should follow up with pulmonary as an outpatient in 2-3 weeks. Will sign off case for now. Appreciate the consult. Re consult if you have any other questions or concerns. Data Medications: Current Inpatient Medications Medications (Trade) Dose Ordered Sig/Bishnu Route Start Time Stop Time Status Last Admin Dose Admin Enoxaparin Sodium (Lovenox Inj) 40 mg Q24H SQ 03/24/17 09:00 04/23/17 08:59 04/05/17 09:23 40 MG Ondansetron HCl (Zofran Inj) 4 mg Q6H PRN IV 03/24/17 00:30 04/23/17 00:29 Aspirin (Ecotrin Tab) 81 mg DAILY PO 03/24/17 09:00 04/23/17 08:59 04/05/17 09:21 81 MG Ipratropium [place] (Atrovent 0.02% 0.5MG/2.5ML Neb) 0.5 mg Q4H PRN INH 03/24/17 01:30 04/23/17 01:29 Levalbuterol (Xopenex 1.25MG/ 0.5ML Neb) 1.25 mg Q4H PRN INH 03/24/17 01:30 04/23/17 01:29 Miscellaneous Information (Order Awaiting Action) 1 ea QS N/A 03/24/17 08:00 04/23/17 07:59 03/27/17 22:52 1 EA Budesonide (Pulmicort Inhaler) 2 puffs BID INH 03/26/17 09:00 04/25/17 08:59 04/05/17 09:21 2 PUFFS Ipratropium [place] (Atrovent 0.02% 0.5MG/2.5ML Neb) 0.5 mg Q6R INH 03/26/17 03:00 04/25/17 02:59 04/05/17 14:23 0.5 MG Levalbuterol (Xopenex 1.25MG/ 0.5ML Neb) 1.25 mg Q6R INH 03/26/17 03:00 04/25/17 02:59 04/05/17 14:23 1.25 MG Loperamide HCl (Imodium Cap) 2 mg Q6H PRN PO 03/28/17 10:15 04/27/17 10:14 04/04/17 19:43 2 MG Furosemide (Lasix Tab) 40 mg QAM PO 03/30/17 09:00 04/29/17 08:59 04/05/17 09:22 40 MG Prednisone (PredniSONE TAB) 20 mg BIDM PO 03/30/17 17:00 04/29/17 16:59 04/05/17 09:21 20 MG Saccharomyces Boulardii (Florastor Cap) 250 mg DAILY PO 04/01/17 09:00 05/01/17 08:59 04/05/17 09:21 250 MG Acetaminophen (Tylenol Tab) 650 mg Q6H PRN PO 04/01/17 10:00 05/01/17 09:59 Zolpidem Tartrate (Ambien Tab) 5 mg HS PRN PO 04/01/17 10:00 05/01/17 09:59 04/04/17 23:01 5 MG Sodium Chloride ([place] Nasal [place]) 2 sprays BID PRN NA 04/03/17 14:15 05/03/17 14:14 I & O: 24-Hour Column 04/06/17 08:00 Intake Total 515 ml Output Total 325 ml Balance 190 ml Vital Signs: Date Time Temp Pulse Resp B/P (MAP) Pulse Ox O2 Delivery O2 Flow Rate FiO2 04/05/17 15:17 36.7 101 18 121/76 (91) 90 Nasal Cannula 4.0 04/05/17 15:03 95 04/05/17 14:23 96 18 94 Nasal Cannula 4.0 04/05/17 08:00 92 Nasal Cannula 4.0 04/05/17 07:11 86 18 92 Nasal Cannula 4.0 04/05/17 07:08 36.3 90 18 117/78 (91) 91 Nasal Cannula 4.0 04/05/17 01:50 89 18 94 Nasal Cannula 4.0 04/05/17 00:24 Nasal Cannula 4.0 04/04/17 23:54 36.8 92 20 153/84 (107) 92 Nasal Cannula 4.0 04/04/17 20:13 89 18 92 Nasal Cannula 4.0 04/04/17 19:08 88 18 92 Nasal Cannula 4.0 Laboratory Results: Last 24 Hours Test 04/05/17 06:33 White Blood Count 16.20 K/uL Red Blood Count 4.22 M/uL Hemoglobin 12.5 g/dL Hematocrit 38.2 % Mean Corpuscular Volume 90.5 fL Mean Corpuscular Hemoglobin 29.6 pg Mean Corpuscular Hemoglobin Concent 32.7 g/dl Platelet Count 335 K/uL Mean Platelet Volume 9.5 fL Neutrophils (%) (Auto) 73.7 % Lymphocytes (%) (Auto) 14.4 % Monocytes (%) (Auto) 9.4 % Eosinophils (%) (Auto) 0.5 % Basophils (%) (Auto) 0.1 % Neutrophils # (Auto) 11.93 K/uL Lymphocytes # (Auto) 2.34 K/uL Monocytes # (Auto) 1.53 K/uL Eosinophils # (Auto) 0.08 K/uL Basophils # (Auto) 0.01 K/uL RDW Standard Deviation 49.0 fL RDW Coefficient of Variation 14.8 % Immature Granulocyte % (Auto) 1.9 % Immature Granulocyte # (Auto) 0.31 K/uL Creatinine 0.66 mg/dl Est Creatinine Clear Calc Drug Dose 73.1 ml/min Estimated GFR () 109.7 Estimated GFR (Non- 94.7
[2017-04-05] MEDS: LOPERAMIDE HCL 2 MG CAP PO PRN (18:34)
[2017-04-06 00:05] VITALS: O2SAT 90
[2017-04-06 00:23] VITALS: BP 126/74; PULSE 91; TEMP 36.6; O2SAT 93
[2017-04-06] MEDS: ZOLPIDEM TARTRATE 5 MG TAB PO PRN (00:26)
[2017-04-06] MEDS: IPRATROPIUM BROMIDE NEB SOLN 0.02% 2.5 ML VIAL INH SCH ×2 (02:07→07:11)
[2017-04-06] MEDS: LEVALBUTEROL 1.25MG/0.5ML NEB INH SCH ×2 (02:07→07:11)
[2017-04-06 07:13] VITALS: PULSE 75; O2SAT 95
[2017-04-06 07:20] VITALS: BP 111/70; PULSE 81; TEMP 36.5; O2SAT 95
[2017-04-06] MEDS: FUROSEMIDE 40 MG TAB PO SCH (08:08)
[2017-04-06] MEDS: ENOXAPARIN 40 MG/0.4 ML SYR SQ SCH (08:09)
[2017-04-06] MEDS: ASPIRIN 81 MG ECTAB PO SCH (08:09)
[2017-04-06] MEDS: SACCHAROMYCES BOUL (FLORASTOR) 250 MG CAP PO SCH (08:09)
[2017-04-06] MEDS: BUDESONIDE 90 MCG INH INH SCH (08:09)
--- NOTE | 2017-04-06 09:17 | Progress Note ---
Internal Med Progress Note Date of Service: Apr 06, 2017. Provider Documentation: SUBJECTIVE: The patient was seen and examined Barium Swallow has been negative for Aspiration Much better today-denies any complaints Ready to be discharged OBJECTIVE: Vital Signs-as noted below Exam: General-no distress at rest Eyes-normal ENT-normal Neck-Supple Lungs-Decreased breath sound bilaterally Occasional bibasilar crackles -improves further Heart-Regular,no murmur appreciated Abdomen-Benign Extremities-No edema Neuro-AAOx3 Generally weak and lethargic Lab data as noted below. ASSESSMENT & PLAN: ACUTE ON CHRONIC HYPOXIC RESPIRATORY FAILURE Differential includes:ILD Flare, Probable Right sided pneumonia , CHF considered but clinically and CT chest shows pulmonary edema. -S/P Oxymask and weaned down to 3.5 L oxygen nasal cannula (At home : 2 L PRN) -S/P IV Solu medrol ---> Changed to prednisone BID per pulmonary (Day 4 of 20 mg BID), S/P IV Lasix 40 mg BID --> Gave 3 doses of IV lasix as I/O showed positive fluid balance, -Changed to Lasix 40 mg PO on 04/02/17. -On levofloxacin for probable pneumonia. (Day 9)-discontinue on 04/06/17. -Pulmonary on board - Appreciate inputs. Dornase/Vest ordered on 04/01/17-can be discontinued -Barium Swallow is negative for any aspiration -Clinically much better -Saturating well on 2 liters [place] oxygen -likely to be discharged when accepted to a facility DIARRHEA- Improved Has hx of chronic diarrhea/ IBS and uses Imodium 2-3 times a day at home -Has been a bit worse in hospital. Electrolytes stable though. -C diff x 2 - negative. Repeat C diff on 04/01/17 negative. -resolved GENERALIZED WEAKNESS/PHYSICAL DECONDITIONING -Multiple falls prior to admission. -PT/OT ordered-recommended Rehab -willing to continue PT/OT S/P RIGHT KNEE EFFUSION with hx of OA/DJD -S/P Tapping by ortho done on 03/25/17 -Full leg knee immobilizer placed per ortho- weight bearing as tolerated, pain controlled -CT knee- no patellar fracture -clinically better today HTN- Presented with urgency. -Stable now HX OF CVA -Stable -Continue with aspiration precautions -Speech therapy evaluated- appreciate inputs SPINA BIFIDA s/p surgical correction ANEMIA, CHRONIC -Stable DVT prophylaxis Lovenox subcutaneous FULL CODE DISPOSITION -PT/OT ordered -Would need to go to rehab. -denied from [facility] -awaiting placement ot or any other facility Vital Signs: Date Time Temp Pulse Resp B/P (MAP) Pulse Ox O2 Delivery O2 Flow Rate FiO2 04/06/17 07:20 36.5 81 18 111/70 (84) 95 Nasal Cannula 2.0 04/06/17 07:13 75 18 95 Nasal Cannula 4.0 04/06/17 00:23 36.6 91 18 126/74 (91) 93 Nasal Cannula 4.0 04/06/17 00:05 90 Nasal Cannula 4.0 60 04/05/17 19:15 88 18 92 Nasal Cannula 4.0 04/05/17 16:00 90 Nasal Cannula 4.0 60 04/05/17 15:17 36.7 101 18 121/76 (91) 90 Nasal Cannula 4.0 04/05/17 15:03 95 04/05/17 14:23 96 18 94 Nasal Cannula 4.0
[2017-04-06 11:02] VITALS: O2SAT 94
[2017-04-06] MEDS ORDERED: PRED10TA PO (11:31)
[2017-04-06] MEDS ORDERED: XPNINS1255 INH (11:31)
--- NOTE | 2017-04-06 11:51 | Discharge Instructions ---
Discharge Instructions Date of Service Apr 06, 2017. Admission Reason for Admission: Complicated Uti Discharge Discharge Diagnosis / Problem: Acute on chronic hypoxemic respiratory failure, Emphysema,ILD Discharge Goals Goal(s): Prevent Disease Progression Activity Recommendations Activity Level: Assistance Required Therapies: Physical Therapy, Occupational Therapy . Additional Information Patient informed of condition: Yes Advance Directives: No DNR: No Level of Care: Skilled Communicable Disease: No Prognosis: Stable Oxygen at (LPM): 2 Liters/min Via [place] -may increase the flow to maindtain the saturation >89% [place] Catheter: No (May need to put one) Instructions / Follow-Up Instructions / Follow-Up Dr Conklin on 04/10/17 at 9:45 AM.Please make an appointment with Dr Perera ( Personal Chef) in 2 -3 weeks Current Hospital Diet Patient's current hospital diet: AHA Diet (Heart Healthy), Low Lactose Diet Discharge Diet Recommended Diet: AHA Diet (Heart Healthy), Low Lactose Diet Fluid Restriction: 1500 ml (6 cups) Pending Studies Studies pending at discharge: no Medical Emergencies . Who to Call and When: Medical Emergencies: If at any time you feel your situation is an emergency, please call 911 immediately. . Non-Emergent Contact Non-Emergency issues call your: Primary Care Provider . Past History Medical & Surgical History: (1) Respiratory failure, [id number] (2) Spina bifida (3) Essential hypertension (4) Depression (5) Dyslipidemia (6) Chronic obstructive lung disease (7) Anxiety (8) Pulmonary fibrosis (9) s/p hysterectomy (10) History of cataract extraction with lens replacement (11) S/P cardiac cath . "Provider Documentation" section prepared by Juan Currie. . Core Measure Problem Core Measures: None
[2017-04-06] MEDS ORDERED: SALI1SPR3 (12:06)
[2017-04-06 12:38] VITALS: BP 111/70; PULSE 81; TEMP 36.5; O2SAT 94
--- NOTE | 2017-04-07 07:58 | Discharge Summary ---
Discharge Summary Date of Service Apr 07, 2017. Discharge Summary Admission Date: Mar 24, 2017 at 00:07 Discharge Date: Apr 06, 2017 Discharge Disposition: senior living facility Principal Diagnosis: Acute on chronic hypoxemic respiratory failure,Emphysema,ILD Secondary Diagnoses/Problems: Please see H&P and Hospital Progress note Consultations: Ortho, Pulm, [employer] Medication Reconciliation New Medications: Prednisone (Prednisone) 10 Mg Tab 10 MG PO UD, #30 TAB 3 po daily for 3 days ,2 po daily for 3 days and then 1 po daily for 3 days Saline (Saline Nasal [place]) 0.65 % Spr 2 SPRAYS NA BID, #1 Levalbuterol (Levalbuterol) 1.25 Mg/0.5 Ml Nebu 1.25 MG INH Q4H PRN for Shortness of Breath for 10 Days, #30 DOSE Continued Medications: Ccwvwjqsognjm-Wvuhusslmuuzm-Hi (Isometheptene/Dichloralph 325-65-100 mg) 1 Cap Cap 1 CAP PO PRN UD Take 2 tablets at onset of headache then 1 every hour until headache resolves. No more than 5 tabs in 24 hours. Aclidinium [place] (Tudorza Pressair) 400 Mcg/Act Aer 1 PUFF INH BID Albuterol Sulfate (Proair Respiclick) 108 Mcg/Act Aer 2 PUFFS INH Q4H PRN for SOB/Wheezing Aspirin (Aspirin Ec) 81 Mg Tab 81 MG PO DAILY Budesonide/Formoterol Fumarate (Symbicort 80/4.5 Inhaler) 120 Puffs/ Aero 2 PUFFS INH BID Calcium/Vitamin D (Os-[place] 500 Plus D) Tab 1 TAB PO BID, TAB Chlordiazepoxide/Clidinium (Librax 5MG/2.5MG) 1 Ea Cap 1 EA PO DAILY, CAP Cyclobenzaprine Hcl (Flexeril) 5 Mg Tab 5 MG PO TID PRN for Muscle Spasms, TAB PRN Diphenoxylate/Atropine (Lomotil) Tab 1 TAB PO BID PRN for Diarrhea, TAB Famotidine (Pepcid) 20 Mg Tab 20 MG PO QPM, TAB Home O2 Therapy (Oxygen) Gas 3 LITERS NA PRN Loperamide Hcl (Imodium) 2 Mg Cap 2 MG PO UD, CAP Take 1 tab by mouth once. Then take 1 tablet after each loose BM. No more than 4 tablets per day for up to 2 days. Nortriptyline Hcl (Pamelor) 25 Mg Cap 25 MG PO QAM Probiotic Product (Probiotic) 1 Cap Cap 1 CAP PO DAILY Rosuvastatin Calcium (Crestor) 20 Mg Tab 20 MG PO QPM, #90 Sertraline (Zoloft) 25 Mg Tab 25 MG PO DAILY, TAB TAKE 25MG WITH 50MG FOR A TOTAL DOSE OF 75MG DAILY Sertraline HCl (Sertraline HCl) 50 Mg Tab 50 MG PO QPM Solifenacin Succinate (Vesicare) 5 Mg Tab 5 MG PO QAM [Alteril] () 0.5 CAP PO HS Discontinued Medications: Metoprolol Tartrate (Lopressor) (Lopressor) 25 Mg Tab 25 MG PO BID, TAB Admission Information HPI (per Admitting provider): In the last week, patient noted to be falling more than usual. Denies syncope chest pain shortness of breath. Right knee pain right right knee would give out. Patient also noted bladder discomfort. Usual diarrhea symptoms from irritable bowel. No fever or chills At the ER, patient given IV ceftriaxone for UTI. Past Medical/Surgical History Medical Problems: (1) Anxiety Status: Chronic (2) Chronic diarrhea Status: Chronic (3) Chronic obstructive lung disease Status: Chronic (4) Depression Status: Chronic (5) Dyslipidemia Status: Chronic (6) Essential hypertension Status: Chronic (7) H/O multiple pulmonary nodules Status: Chronic (8) History of CVA (cerebrovascular accident) Status: Chronic (9) Irritable colon Status: Chronic (10) Migraine Status: Chronic (11) Pulmonary fibrosis Status: Chronic (12) Spina bifida Permanent Comment: s/p repair Status: Chronic (13) Tobacco user Status: Chronic (14) Urge incontinence Status: Chronic Surgical Problems: (1) History of cataract extraction with lens replacement Permanent Comment: bil; 2012 Status: Resolved (2) S/P cardiac cath Permanent Comment: 1999- minor early atherosclerotic changes, no obstruction Status: Chronic (3) s/p hysterectomy Permanent Comment: 1991 Status: Resolved spina bifida surgery Family History Cancer BROTHER (lung CA) Social History Smoking Status: Current Every Day Smoker (E cigarette) Marital Status: Housing status: lives with family Occupational Status: employed, disabled Immunizations History of Influenza Vaccine: Yes Influenza Vaccine Date: Jul 12, 2012 History of Tetanus Vaccine?: Unknown History of Pneumococcal: Unknown Pneumococcal Date: February 04, 2008 History of Hepatitis B Vaccine: No Multi-Drug Resistant Organisms History of MDRO: No Allergies Coded Allergies: NO KNOWN DRUG ALLERGIES (Verified Allergy, Mild, NKDA, 03/23/17) Yellow Pine Oil (Verified Adverse Reaction, Unknown, GI UPSET, 04/07/16) Milk (Verified Adverse Reaction, Unknown, GI UPSET, 04/07/16) Home Medications Scheduled Otbttrehrigum-Jitgikcstygtk-Ce (Isometheptene/Dichloralph 325-65-100 mg), 1 CAP PO PRN UD Aclidinium [place] (Tudorza Pressair), 1 PUFF INH BID Aspirin (Aspirin Ec), 81 MG PO DAILY Budesonide/Formoterol Fumarate (Symbicort 80/4.5 Inhaler), 2 PUFFS INH BID Calcium/Vitamin D (Os-Har[place] 500 Plus D), 1 TAB PO BID Chlordiazepoxide/Clidinium (Librax 5MG/2.5MG), 1 EA PO DAILY Famotidine (Pepcid), 20 MG PO QPM Home O2 Therapy (Oxygen), 3 LITERS NA PRN Loperamide Hcl (Imodium), 2 MG PO UD Metoprolol Tartrate (Lopressor) (Lopressor), 25 MG PO BID Nortriptyline Hcl (Pamelor), 25 MG PO QAM Probiotic Product (Probiotic), 1 CAP PO DAILY Rosuvastatin Calcium (Crestor), 20 MG PO QPM Sertraline (Zoloft), 25 MG PO DAILY Sertraline HCl (Sertraline HCl), 50 MG PO QPM Solifenacin Succinate (Vesicare), 5 MG PO QAM [Alteril], 0.5 CAP PO HS Scheduled PRN Albuterol Sulfate (Proair Respiclick), 2 PUFFS INH Q4H PRN for SOB/Wheezing Cyclobenzaprine Hcl (Flexeril), 5 MG PO TID PRN for Muscle Spasms Diphenoxylate/Atropine (Lomotil), 1 TAB PO BID PRN for Diarrhea Review of Systems as per HPI, all other ROS negative Physical Ex - H&P Physical Exam Vital Signs Date Time Temp Pulse Resp B/P (MAP) Pulse Ox O2 Delivery O2 Flow Rate FiO2 03/24/17 01:53 93 Nasal Cannula 4.0 03/24/17 01:44 36.8 84 18 144/88 03/24/17 00:22 36.9 83 22 164/103 94 03/23/17 23:36 82 03/23/17 22:49 82 16 171/92 95 Nasal Cannula 4.0 03/23/17 21:53 81 180/97 97 Nasal Cannula 4.0 03/23/17 21:21 92 24 206/99 91 Nasal Cannula 4.0 03/23/17 19:55 Nasal Cannula 4.0 03/23/17 19:38 87 03/23/17 19:27 37.4 98 16 179/112 80 Room Air General Appearance: + pertinent finding (unkempt, looks older than stated age) Head: + pertinent finding (old facial asymmetry) Neck: supple Respiratory/Chest: + decreased breath sounds Cardiovascular: regular rate, rhythm Abdomen/GI: soft Extremities/Musculoskelatal: + pertinent finding (immobilization right knee) Diagnostics - H&P Diagnostics Laboratory Results Results Past 24 Hours Test 03/23/17 20:05 03/23/17 20:09 03/23/17 20:48 03/23/17 21:30 Range/Units White Blood Count 11.40 4.8-10.8 K/uL Red Blood Count 4.52 4.2-5.4 M/uL Hemoglobin 14.0 12.0-16.0 g/dL Hematocrit 42.3 37-47 % Mean Corpuscular Volume 93.6 80-100 fL Mean Corpuscular Hemoglobin 31.0 25-34 pg Mean Corpuscular Hemoglobin Concent 33.1 32-36 g/dl Platelet Count 217 130-400 K/uL Mean Platelet Volume 10.5 7.4-10.4 fL Neutrophils (%) (Auto) 73.0 % Lymphocytes (%) (Auto) 16.4 % Monocytes (%) (Auto) 6.9 % Eosinophils (%) (Auto) 3.1 % Basophils (%) (Auto) 0.4 % Neutrophils # (Auto) 8.33 1.4-6.5 K/uL Lymphocytes # (Auto) 1.87 1.2-3.4 K/uL Monocytes # (Auto) 0.79 0.11-0.59 K/uL Eosinophils # (Auto) 0.35 0-0.5 K/uL Basophils # (Auto) 0.04 0-0.2 K/uL RDW Standard Deviation 48.4 36.4-46.3 fL RDW Coefficient of Variation 14.2 11.5-14.5 % Immature Granulocyte % (Auto) 0.2 % Immature Granulocyte # (Auto) 0.02 0.00-0.02 K/uL Prothrombin Time 10.5 9.0-12.0 SECONDS Prothromb Time International Ratio 1.0 0.9-1.1 Activated Partial Thromboplast Time 26.7 21.0-31.0 SECONDS Partial Thromboplastin Ratio 1.0 Sodium Level 137 136-145 mmol/L Potassium Level 4.6 3.5-5.1 mmol/L Chloride Level 102 98-107 mmol/L Carbon Dioxide Level 30 21-32 mmol/L Anion Gap 5.0 3-11 mmol/L Blood Urea Nitrogen 10 7-18 mg/dl Creatinine 0.79 0.60-1.20 mg/dl Est Creatinine Clear Calc Drug Dose 65.5 ml/min Estimated GFR () 93.0 Estimated GFR (Non- 80.2 BUN/Creatinine Ratio 12.5 10-20 Random Glucose 92 70-99 mg/dl Calcium Level 9.4 8.5-10.1 mg/dl Magnesium Level 2.2 1.8-2.4 mg/dl Total Bilirubin 0.3 0.2-1 mg/dl Direct Bilirubin 0-0.2 mg/dl Aspartate Amino Transf (AST/SGOT) 24 15-37 U/L Alanine Aminotransferase (ALT/SGPT) 14 12-78 U/L Alkaline Phosphatase 98 45-117 U/L Total Creatine Kinase 390 26-192 U/L Creatine Kinase MB 4.2 0.5-3.6 ng/ml Creatine Kinase MB Ratio 1.1 0-3.0 Troponin I < 0.015 0-0.045 ng/ml Total Protein 8.1 6.4-8.2 gm/dl Albumin 3.8 3.4-5.0 gm/dl Lipase 92 73-393 U/L Thyroid Stimulating Hormone (TSH) 1.400 0.300-4.500 uIu/ml Chemistry Specimen Hemolysis Bedside Lactic Acid Venous 1.47 0.90-1.70 mmol/L Pro-B-Type Natriuretic Peptide 360 0-900 pg/ml Urine Color YELLOW Urine Appearance CLEAR CLEAR Urine pH 6.5 4.5-7.5 Urine Specific [place] 1.010 1.000-1.030 Urine Protein NEG NEG Urine Glucose (UA) NEG NEG Urine Ketones NEG NEG Urine Occult Blood 1+ NEG Urine Nitrite POS NEG Urine Bilirubin NEG NEG Urine Urobilinogen NEG NEG Urine Leukocyte Esterase MODERATE NEG Urine WBC (Auto) 10-30 0-5 /hpf Urine RBC (Auto) 0-4 0-4 /hpf Urine Hyaline Casts (Auto) 1-5 0-5 /lpf Urine Epithelial Cells (Auto) >30 0-5 /lpf Urine Bacteria (Auto) 4+ NEG Test 03/23/17 23:34 Range/Units Arterial Blood pH 7.41 7.35-7.45 Arterial Blood Partial Pressure CO2 45 35-46 mmHg Arterial Blood Partial Pressure O2 62 80-95 mm/Hg Arterial Blood HCO3 28 19-24 mmol/L Arterial Blood Oxygen Saturation 91.1 90-95 % Arterial Blood Base Excess 3.0 -9-1.8 mEq/L Arterial Blood Gas Delivery 4 L Sharif Test POS POS Microbiology Results 03/23/17 Blood Culture, Received Pending 03/23/17 Blood Culture, Received Pending 03/23/17 Urine Culture, Received Pending Diagnostic Radiology CT head no acute pathology Chest x-ray chronic interstitial thickening Right knee x-ray Moderate size right knee joint effusion with probable acute nondisplaced patellar fracture. Impression - H&P Impression Assessment and Plan AP Complicated UTI History urge incontinence 2 to spina bifida No sepsis HTN, slightly elevated History CVA Chronic hypoxemic respiratory failure secondary to COPD/ILD on home O2 Pulmo-status at baseline as per patient px denies cp, sob sx albeit marked hypoxemia upon arrival at the ER Ongoing E cigarette use Recurrent falls, ambulatory dysfunction secondary to right knee swelling/ patellar fx history spina bifida status post surgery Chronic diarrhea history IBS Rule out C. difficile GMF Follow urine cultures, IV ceftriaxone for now Orthopedics consult RE right knee pain and swelling (patient known to Dr. Yadav) Stool C. difficile Patient counseled to stop smoking PT OT eval DVT prophylaxis Lovenox subcutaneous Full code Advanced Directives Existing Living Will: No Existing Power of Senior Government Program Analyst: Yes () VTE Prophylaxis VTE Risk Assessment Done? Y/N: Yes Risk Level: Moderate Physical Exam (per Admitting): General Appearance: + pertinent finding (unkempt, looks older than stated age) Head: + pertinent finding (old facial asymmetry) Neck: supple Respiratory/Chest: + decreased breath sounds Cardiovascular: regular rate, rhythm Abdomen/GI: soft Extremities/Musculoskelatal: + pertinent finding (immobilization right knee) Hospital Course ACUTE ON CHRONIC HYPOXIC RESPIRATORY FAILURE Differential includes:ILD Flare, Probable Right sided pneumonia , CHF considered but clinically and CT chest shows pulmonary edema. -S/P Oxymask and weaned down to 3.5 L oxygen nasal cannula (At home : 2 L PRN) -S/P IV Solu medrol ---> Changed to prednisone BID per pulmonary (Day 4 of 20 mg BID), S/P IV Lasix 40 mg BID --> Gave 3 doses of IV lasix as I/O showed positive fluid balance, -Changed to Lasix 40 mg PO on 04/02/17. -On levofloxacin for probable pneumonia. (Day 9)-discontinue on 04/06/17. -Pulmonary on board - Appreciate inputs. Dornase/Vest ordered on 04/01/17-can be discontinued -Barium Swallow is negative for any aspiration -Clinically much better -Saturating well on 2 liters [place] oxygen -likely to be discharged when accepted to a facility DIARRHEA- Improved Has hx of chronic diarrhea/ IBS and uses Imodium 2-3 times a day at home -Has been a bit worse in hospital. Electrolytes stable though. -C diff x 2 - negative. Repeat C diff on 04/01/17 negative. -resolved GENERALIZED WEAKNESS/PHYSICAL DECONDITIONING -Multiple falls prior to admission. -PT/OT ordered-recommended Rehab -willing to continue PT/OT S/P RIGHT KNEE EFFUSION with hx of OA/DJD -S/P Tapping by ortho done on 03/25/17 -Full leg knee immobilizer placed per ortho- weight bearing as tolerated, pain controlled -CT knee- no patellar fracture -clinically better today HTN- Presented with urgency. -Stable now HX OF CVA -Stable -Continue with aspiration precautions -Speech therapy evaluated- appreciate inputs SPINA BIFIDA s/p surgical correction ANEMIA, CHRONIC -Stable DVT prophylaxis Lovenox subcutaneous FULL CODE DISPOSITION -PT/OT ordered -Would need to go to rehab. -denied from [facility] -awaiting placement ot or any other facility Total time spent on discharge = 35 minutes This includes examination of the patient, discharge planning, medication reconciliation, and communication with other providers. Discharge Instructions Date of Service Apr 06, 2017. Admission Reason for Admission: Complicated Uti Discharge Discharge Diagnosis / Problem: Acute on chronic hypoxemic respiratory failure, Emphysema,ILD Discharge Goals Goal(s): Prevent Disease Progression Activity Recommendations Activity Level: Assistance Required Therapies: Physical Therapy, Occupational Therapy . Additional Information Patient informed of condition: Yes Advance Directives: No DNR: No Level of Care: Skilled Communicable Disease: No Prognosis: Stable Oxygen at (LPM): 2 Liters/min Via [place] -may increase the flow to maindtain the saturation >89% [place] Catheter: No (May need to put one) Instructions / Follow-Up Instructions / Follow-Up Dr Conklin on 04/10/17 at 9:45 AM.Please make an appointment with Dr Perera ( Library Consultant) in 2 -3 weeks Current Hospital Diet Patient's current hospital diet: AHA Diet (Heart Healthy), Low Lactose Diet Discharge Diet Recommended Diet: AHA Diet (Heart Healthy), Low Lactose Diet Fluid Restriction: 1500 ml (6 cups) Pending Studies Studies pending at discharge: no Medical Emergencies . Who to Call and When: Medical Emergencies: If at any time you feel your situation is an emergency, please call 911 immediately. . Non-Emergent Contact Non-Emergency issues call your: Primary Care Provider . Past History Medical & Surgical History: (1) Respiratory failure, [id number]-[id number] (2) Spina bifida (3) Essential hypertension (4) Depression (5) Dyslipidemia (6) Chronic obstructive lung disease (7) Anxiety (8) Pulmonary fibrosis (9) s/p hysterectomy (10) History of cataract extraction with lens replacement (11) S/P cardiac cath . "Provider Documentation" section prepared by Juan Currie. . Core Measure Problem Core Measures: None <Electronically signed by Juan Currie M.D.> Signed: 04/06/17 1151 Additional Copies To Onel Conklin D.O.
== END 2017-04-06 13:30 | DRG 196 ==
LOC: EDBD 19:22 → C.EDC 19:23 → ENRESERV 23:41 → C.MS2W 03-24 00:07 → EDBEDREQSVC 03-24 00:08 → ENRESERV 03-24 00:12 → C.2T 03-27 13:37 → ENRESERV 03-30 10:23 → C.MS2W 03-30 10:52
PROVIDERS: ADMIT Hospitalist; ATTEND Internal Medicine
PROC: 0S9C3ZZ Drainage of Right Knee Joint, Percutaneous Approach (ICD-10-PCS; principal; 2017-03-25)
DX: J84.10 Pulmonary fibrosis, unspecified (principal); J96.21 Acute and chronic respiratory failure with hypoxia; N39.0 Urinary tract infection, site not specified; J69.0 Pneumonitis due to inhalation of food and vomit; J44.9 Chronic obstructive pulmonary disease, unspecified; B96.89 Other specified bacterial agents as the cause of diseases classified elsewhere; I16.0 Hypertensive urgency; K58.0 Irritable bowel syndrome with diarrhea; N39.41 Urge incontinence; R26.9 Unspecified abnormalities of gait and mobility; M25.461 Effusion, right knee; M17.11 Unilateral primary osteoarthritis, right knee; R53.1 Weakness; I10 Essential (primary) hypertension; D64.9 Anemia, unspecified; E78.5 Hyperlipidemia, unspecified; F32.9 Major depressive disorder, single episode, unspecified; F41.9 Anxiety disorder, unspecified; G43.909 Migraine, unspecified, not intractable, without status migrainosus; F17.290 Nicotine dependence, other tobacco product, uncomplicated; Z51.81 Encounter for therapeutic drug level monitoring; Z79.899 Other long term (current) drug therapy; Z79.82 Long term (current) use of aspirin; Z99.81 Dependence on supplemental oxygen; Z91.81 History of falling; Z86.73 Personal history of transient ischemic attack (TIA), and cerebral infarction without residual deficits; Z87.728 Personal history of other specified (corrected) congenital malformations of nervous system and sense organs; Z80.1 Family history of malignant neoplasm of trachea, bronchus and lung; Z82.49 Family history of ischemic heart disease and other diseases of the circulatory system; Z83.6 Family history of other diseases of the respiratory system; J18.9 Pneumonia, unspecified organism; I50.31 Acute diastolic (congestive) heart failure; J44.0 Chronic obstructive pulmonary disease with (acute) lower respiratory infection; Y95 Nosocomial condition; I11.0 Hypertensive heart disease with heart failure; K59.00 Constipation, unspecified; I27.2 Other secondary pulmonary hypertension; F41.1 Generalized anxiety disorder; Z87.440 Personal history of urinary (tract) infections; Z51.5 Encounter for palliative care; Z87.891 Personal history of nicotine dependence; Z86.14 Personal history of Methicillin resistant Staphylococcus aureus infection; Z90.710 Acquired absence of both cervix and uterus; Z98.51 Tubal ligation status; Z98.49 Cataract extraction status, unspecified eye; Z88.5 Allergy status to narcotic agent; Z91.018 Allergy to other foods; Z91.011 Allergy to milk products; Z80.3 Family history of malignant neoplasm of breast; Z86.010 Personal history of colon polyps; Z82.3 Family history of stroke

== ENCOUNTER 2017-04-17 17:07 | Inpatient (IN) | payer OTHER ==
[~2017-04-17] VITALS: Ht 157.5 cm; Wt 62.8 kg
[~2017-04-17 17:07] MED LIST changes: +ALBU18002 INH; -ALBU1AER9 INH; -DIPH1TAB98 PO; -METO25TA56 PO; +PRED10TA PO; +SALI1SPR3; +SERT25TA PO; +XPNINS1255 INH
[2017-04-17] MEDS ORDERED: LPR25 PO (17:51)
--- NOTE | 2017-04-17 18:06 | EMERGENCY ROOM VISIT NOTE ---
History Report prepared by Scribe: Estelle Roberts Under the Supervision of: Dr. Ollie Valentin D.O. First contact with patient: 17:54 Chief Complaint: OTHER COMPLAINT Stated Complaint: SOB History of Present Illness The patient is a 61 year old female who presents to the Emergency Room with complaints of persistent shortness of breath for the past several hours. She was brought to the ED via EMS and is accompanied by her . She was recently discharged from the hospital on April 06 for pneumonia. She currently resides at [facility] and piling cutter state her O2 was in the 60's when they arrived, which the patient states is unusual for her. She was given a DuoNeb in the field. Nursing states the patient was 64% on room air in triage. Her 02 increased to 100% on 10 L Oxy Mask. The patient has a history of COPD, emphysema and pulmonary fibrosis. She states "I wear Oxygen sometimes at home". She notes her legs have been more swollen recently, but states this started while she was in the hospital. She denies any recent changes to her medications. She also denies any recent fevers, chills, chest pain or rashes. Source of History: patient, spouse/significant other (), EMS, nursing staff Onset: past several hours Position: chest Quality: other (breathing issues) Timing: other (persistent) Modifying Factors (Relieving): oxygen, other (DuoNeb) Associated Symptoms: No fevers, No chills, No chest pain, No rash Review of Systems See HPI for pertinent positives & negatives. A total of 10 systems reviewed and were otherwise negative. Past Medical & Surgical Medical Problems: (1) Anxiety (2) Chronic diarrhea (3) Chronic obstructive lung disease (4) Complicated UTI (urinary tract infection) (5) Depression (6) Dyslipidemia (7) Essential hypertension (8) H/O multiple pulmonary nodules (9) History of CVA (cerebrovascular accident) (10) Irritable colon (11) Migraine (12) Pulmonary fibrosis (13) Respiratory failure, [id number] (14) Spina bifida (15) Tobacco user (16) Urge incontinence Surgical Problems: (1) History of cataract extraction with lens replacement (2) S/P cardiac cath (3) s/p hysterectomy Family History Cancer BROTHER (lung CA) Social History Smoking Status: Former Smoker Alcohol Use: none Drug Use: none Marital Status: Housing Status: lives with family Occupation Status: employed, disabled Current/Historical Medications Scheduled Lekeduohqiczk-Dtgwizwbjhyjq-Mu (Isometheptene/Dichloralph 325-65-100 mg), 1 CAP PO PRN UD Aclidinium Gibson (Tudorza Pressair), 1 PUFF INH BID Aspirin (Aspirin Ec), 81 MG PO DAILY Budesonide/Formoterol Fumarate (Symbicort 80/4.5 Inhaler), 2 PUFFS INH BID Calcium/Vitamin D (Os-Harman 500 Plus D), 1 TAB PO BID Chlordiazepoxide/Clidinium (Librax 5MG/2.5MG), 1 EA PO BID Famotidine (Pepcid), 20 MG PO QPM Home O2 Therapy (Oxygen), 3 LITERS NA PRN Loperamide Hcl (Imodium), 2 MG PO UD Metoprolol Tartrate (Lopressor), 25 MG PO BID Nortriptyline Hcl (Pamelor), 25 MG PO QAM Probiotic Product (Probiotic), 1 CAP PO DAILY Rosuvastatin Calcium (Crestor), 20 MG PO QPM Saline (Saline Nasal [place]), 2 SPRAYS NA BID Sertraline (Zoloft), 25 MG PO QPM Sertraline HCl (Sertraline HCl), 50 MG PO QPM Solifenacin Succinate (Vesicare), 5 MG PO QAM [Alteril], 0.5 CAP PO HS Scheduled PRN Albuterol Sulfate (Proair Respiclick), 2 PUFFS INH Q4H PRN for SOB/Wheezing Cyclobenzaprine Hcl (Flexeril), 5 MG PO TID PRN for Muscle Spasms Diphenoxylate/Atropine (Lomotil), 1 TAB PO BID PRN for Diarrhea Levalbuterol (Levalbuterol), 1.25 MG INH Q4H PRN for Shortness of Breath Allergies Coded Allergies: Whiteface Oil (Verified Adverse Reaction, Mild, GI UPSET, 04/17/17) Lactose Intolerance (GI) (Verified Adverse Reaction, Mild, GI SYMPTOMS, ) Morphine (Verified Adverse Reaction, Mild, confusion, 04/17/17) Physical Exam Vital Signs Date Time Temp Pulse Resp B/P (MAP) Pulse Ox O2 Delivery O2 Flow Rate FiO2 04/17/17 20:36 93 23 139/93 94 Room Air 04/17/17 19:36 87 20 120/80 94 Mask 10.0 04/17/17 17:38 96 04/17/17 17:25 100 Mask 10.0 04/17/17 17:25 100 Oxymask 10.0 04/17/17 17:10 36.5 115 24 105/76 64 Room Air Physical Exam GENERAL: Patient is awake, alert, somewhat listless appearing but does not appear to be in pain or uncomfortable. EYES: The conjunctivae are clear. The pupils are round and reactive. EARS, NOSE, MOUTH AND THROAT: The nose is without any evidence of any deformity. Mucous membranes are moist tongue is midline NECK: The neck is nontender and supple. RESPIRATORY: Lung sounds are diminished throughout, rales noted in the right lower lung field. Mild tachypnea and conversational dyspnea noted. CARDIOVASCULAR: Regular rate and rhythm noted there no murmurs rubs or gallops normal S1 normal S2 GASTROINTESTINAL: The abdomen is soft. Bowel sounds are present in all quadrants. Abdomen is nontender MUSCULOSKELETAL/EXTREMITIES: There is no evidence of gross deformity full range of motion is noted in the hips and shoulders SKIN: Pedal edema bilaterally. No signs of cellulitis. There is no obvious evidence of any rash. There are no petechiae, pallor or cyanosis noted. NEUROLOGIC: Patient is awake alert and oriented x3 Medical Decision & Procedures ER Provider Diagnostic Interpretation: Radiology results as stated below per my review and radiologist interpretation: CHEST ONE VIEW PORTABLE CLINICAL HISTORY: Respiratory distress. Dyspnea. COMPARISON STUDY: Chest CT March 27, 2017 and chest radiograph March 31, 2017 FINDINGS: There is no pneumothorax or pleural effusion. Bilateral hilar enlargement is again noted. Diffuse interstitial thickening and bilateral airspace opacities have progressed since prior exam of March 31, 2017. IMPRESSION: 1. Increase in interstitial thickening and bilateral opacities since exam of March 31, 2017. The findings could reflect pulmonary edema or pneumonia superimposed upon interstitial lung disease/emphysema. 2. Bilateral hilar enlargement likely due to lymphadenopathy shown on prior CT. Electronically signed by: Jimy Osei M.D. 04/17/2017 6:[address] ANGIOGRAM OF THE CHEST CLINICAL HISTORY: Dyspnea. Hypoxia. Atypical chest pain. COMPARISON STUDY: Chest x-ray dated 04/17/2017. Chest CT scans dated 03/27/2017 and 12/18/2013. TECHNIQUE: Following the IV administration of 107 cc of Optiray 320, CT angiogram of the chest was performed from the upper abdomen to the thoracic inlet utilizing the pulmonary embolus protocol. Images are reviewed in the axial, sagittal, and coronal planes. 3-D MIPS images are created and assessed. IV contrast was administered without complication. A dose lowering technique was utilized adhering to the principles of ALARA. The Examination is significantly motion compromised. CT DOSE: 337.11 mGy.cm FINDINGS: Thyroid: Imaged portions of the thyroid gland are normal in size and attenuation. Thoracic aorta: There is atherosclerotic calcification of the thoracic aorta, which is normal in caliber and demonstrates standard 3-vessel arch anatomy. No dissection is seen. Pulmonary vasculature: The pulmonary trunk is dilated, measuring 3.3 cm in diameter. This suggests pulmonary artery hypertension. There are no filling defects identified in main, lobar, or proximal segmental pulmonary branches to suggest pulmonary embolus. Evaluation of the peripheral vessels is degraded by motion artifact. Heart: The heart is top normal in size and without pericardial effusion. The coronary arteries are densely calcified. Lungs and pleural spaces: Evaluation of the lung parenchyma is degraded by motion artifact. Advanced emphysema is identified. Superimposed interstitial lung disease is suspected. There is patchy airspace consolidation seen throughout both lungs. Trace pleural fluid is seen on the right. A large calcification the right middle lobe is similar to previous. The trachea and central airways are clear. Mediastinum: There are scattered subcentimeter mediastinal lymph nodes. These are not pathologically enlarged by size criteria. Marylou: Clear. Axillae: There is no axillary lymphadenopathy. Upper abdomen: There is a small hiatal hernia. Reflux of contrast into the IVC and hepatic veins suggests cardiac dysfunction. Skeletal structures: The skeletal structures are osteopenic. No lytic or blastic bony lesions are seen. IMPRESSION: 1. Significantly motion compromised examination. 2. There is no evidence of pulmonary embolus in the main, lobar, or proximal segmental pulmonary arteries. 3. Advanced emphysema and suspect superimposed interstitial lung disease. 4. Patchy consolidative change is seen throughout both lungs. The appearance is nonspecific, and this could represent pneumonia, aspiration pneumonitis, pulmonary edema, and/or pulmonary hemorrhage. Clinical correlation will be essential and radiographic follow-up to resolution is recommended. 5. Trace right pleural effusion. 6. Additional findings as above. Electronically signed by: Greg Ronquillo M.D. 04/17/2017 7:41 PM Laboratory Results 04/17/17 18:21 Red Blood Count 3.70, Mean Corpuscular Volume 92.7, Mean Corpuscular Hemoglobin 28.9, Mean Corpuscular Hemoglobin Concent 31.2, Mean Platelet Volume 9.5, Neutrophils (%) (Auto) 93.7, Lymphocytes (%) (Auto) 4.8, Monocytes (%) (Auto) 1.0, Eosinophils (%) (Auto) 0.1, Basophils (%) (Auto) 0.1, Neutrophils # (Auto) 10.83, Lymphocytes # (Auto) 0.56, Monocytes # (Auto) 0.11, Eosinophils # (Auto) 0.01, Basophils # (Auto) 0.01 04/17/17 18:22 Test 04/17/17 18:21 04/17/17 18:22 04/17/17 18:28 White Blood Count 11.56 K/uL (4.8-10.8) Red Blood Count 3.70 M/uL (4.2-5.4) Hemoglobin 10.7 g/dL (12.0-16.0) Hematocrit 34.3 % (37-47) Mean Corpuscular Volume 92.7 fL (80-100) Mean Corpuscular Hemoglobin 28.9 pg (25-34) Mean Corpuscular Hemoglobin Concent 31.2 g/dl (32-36) Platelet Count 275 K/uL (130-400) Mean Platelet Volume 9.5 fL (7.4-10.4) Neutrophils (%) (Auto) 93.7 % Lymphocytes (%) (Auto) 4.8 % Monocytes (%) (Auto) 1.0 % Eosinophils (%) (Auto) 0.1 % Basophils (%) (Auto) 0.1 % Neutrophils # (Auto) 10.83 K/uL (1.4-6.5) Lymphocytes # (Auto) 0.56 K/uL (1.2-3.4) Monocytes # (Auto) 0.11 K/uL (0.11-0.59) Eosinophils # (Auto) 0.01 K/uL (0-0.5) Basophils # (Auto) 0.01 K/uL (0-0.2) RDW Standard Deviation 52.5 fL (36.4-46.3) RDW Coefficient of Variation 15.5 % (11.5-14.5) Immature Granulocyte % (Auto) 0.3 % Immature Granulocyte # (Auto) 0.04 K/uL (0.00-0.02) Venous Blood pH 7.41 (7.36-7.41) Venous Blood Partial Pressure CO2 46 mmHg (38.0-50.0) Venous Blood Partial Pressure O2 39 mmHg Venous Blood HCO3 29 mmol/L Venous Blood Oxygen Saturation 71.5 % Venous Blood Base Excess 3.3 mmol/L Prothrombin Time 10.8 SECONDS (9.0-12.0) Prothromb Time International Ratio 1.0 (0.9-1.1) Activated Partial Thromboplast Time 28.5 SECONDS (21.0-31.0) Partial Thromboplastin Ratio 1.1 Anion Gap 6.0 mmol/L (3-11) Est Creatinine Clear Calc Drug Dose 84.6 ml/min Estimated GFR () 112.6 Estimated GFR (Non- 97.2 BUN/Creatinine Ratio 25.4 (10-20) Calcium Level 9.0 mg/dl (8.5-10.1) Magnesium Level 2.2 mg/dl (1.8-2.4) Total Bilirubin 0.5 mg/dl (0.2-1) Aspartate Amino Transf (AST/SGOT) 29 U/L (15-37) Alanine Aminotransferase (ALT/SGPT) 28 U/L (12-78) Alkaline Phosphatase 118 U/L (45-117) Total Creatine Kinase 42 U/L (26-192) Creatine Kinase MB 2.1 ng/ml (0.5-3.6) Creatine Kinase MB Ratio 5.0 (0-3.0) Pro-B-Type Natriuretic Peptide 3290 pg/ml (0-900) Total Protein 7.3 gm/dl (6.4-8.2) Albumin 2.8 gm/dl (3.4-5.0) Globulin 4.5 gm/dl (2.5-4.0) Albumin/Globulin Ratio 0.6 (0.9-2) Bedside D-Dimer > 450 ng/mlFEU (0-450) Laboratory results per my review. Medications Administered Medications (Trade) Dose Ordered Sig/Bishnu Route Start Time Stop Time Status Last Admin Dose Admin Albuterol/ Ipratropium (Duoneb) 3 ml UD STAT INH 04/17/17 19:55 04/17/17 19:57 DC 04/17/17 20:06 3 ML Furosemide (Lasix Inj) 40 mg NOW STAT IV 04/17/17 20:32 04/17/17 20:33 DC 04/17/17 21:52 40 MG Methylprednisolone Sodium Succinate (Solu-Medrol IV) 40 mg NOW STAT IV 04/17/17 20:32 04/17/17 20:33 DC 04/17/17 20:59 40 MG ECG Indication: SOB/dyspnea Rate (beats per minute): 103 Rhythm: sinus tachycardia Findings: no ectopy, other (No acute ST segment abnormalities) Comparison ECG Date: Increased rate, otherwise no change when compared to EKG from March 23, 2017 ED Course 180: The patient was evaluated in room B6. A complete history and physical examination were performed. 1952: I discussed the patients case [facility] The patient will be further evaluated. Medical Decision Prior records/ancillary studies reviewed. Triage Nursing notes reviewed. Additional history obtained from the family. The patient's history was concerning for respiratory difficulties. Differential diagnosis: Etiologies such as infections, reactive airway disease, pneumonia, pneumothorax , COPD, CHF, cardiac ischemia, pulmonary embolism, musculoskeletal, gastrointestinal, as well as others were entertained. The patient is a 61-year-old female who presented to emergency department for an evaluation of hypoxia. The patient was noted to have hypoxia on vital sign checking at her personal longterm. The patient had a very significant degree of hypoxia and she was sent to the emergency department for further evaluation. The patient appeared to have a physical exam that could be consistent with pulmonary edema but she was recently treated for pneumonia. Due to the degree of hypoxia CT the chest was obtained to rule out venous thromboembolic disease. I discussed the patient's laboratory and radiographic studies with her and her significant other. The patient was treated with oxygen mask in the emergency department. Her oxygen saturation was acceptable after this. The patient was treated with bronchodilator therapy steroids and Lasix in the emergency department. On subsequent reevaluation she was somewhat improved. I discussed her case with the on-call [facility] group. He agreed to evaluate patient in the emergency department for further management and disposition. Medication Reconcilliation Current Medication List: was personally reviewed by me Blood Pressure Screening Patient's blood pressure: Low blood pressure Blood pressure disposition: Did not require urgent referral Consults Time Called: 1949 Consulting Physician: Liliam Goetz Hospitalist Returned Call: 1952 I discussed the patients case with Liliam Goetz Hospitalist. The patient will be further evaluated. Impression Primary Impression: Pneumonia Additional Impressions: Pulmonary edema Elevated troponin Hypoxia Scribe Attestation The scribe's documentation has been prepared under my direction and personally reviewed by me in its entirety. I confirm that the note above accurately reflects all work, treatment, procedures, and medical decision making performed by me. Departure Information Dispostion Being Evaluated By Hospitalist Referrals Onel Conklin D.OKiarra (PCP) Patient Instructions My [facility] Problem Qualifiers Primary Impression: Pneumonia Pneumonia type: due to unspecified organism Laterality: bilateral Lung location: unspecified part of lung Qualified Codes: J18.9 - Pneumonia, unspecified organism Additional Impressions: Pulmonary edema Chronicity: chronic Qualified Codes: J81.1 - Chronic pulmonary edema
[2017-04-17 18:34] LABS: VEN BLD GAS O2 SATURATION 71.5 %; VEN BLOOD GAS BASE EXCESS 3.3 mmol/L
[2017-04-17 18:45] LABS: BASO % 0.1 %; BASO ABS # 0.01 K/uL (0-0.2); COMPLETE YES; EOS % 0.1 %; HEMATOCRIT 34.3 % (37-47); IG% 0.3 %; LYMPH % 4.8 %; LYMPH ABS # 0.56 K/uL (1.2-3.4); MEAN CELL VOLUME 92.7 fL (80-100); MEAN CORPUSCULAR HEMOGLOBIN 28.9 pg (25-34); MEAN CORPUSCULAR HGB CONC 31.2 g/dl (32-36); MEAN PLATELET VOLUME 9.5 fL (7.4-10.4); NEUT % 93.7 %; PLATELET COUNT 275 K/uL (130-400); WHITE BLOOD COUNT 11.56 K/uL (4.8-10.8)
--- NOTE | 2017-04-17 18:49 | DIAGNOSTIC IMAGING REPORT ---
CHEST ONE VIEW PORTABLE CLINICAL HISTORY: Respiratory distress. Dyspnea. COMPARISON STUDY: Chest CT March 27, 2017 and chest radiograph March 31, 2017 FINDINGS: There is no pneumothorax or pleural effusion. Bilateral hilar enlargement is again noted. Diffuse interstitial thickening and bilateral airspace opacities have progressed since prior exam of March 31, 2017. IMPRESSION: 1. Increase in interstitial thickening and bilateral opacities since exam of March 31, 2017. The findings could reflect pulmonary edema or pneumonia superimposed upon interstitial lung disease/emphysema. 2. Bilateral hilar enlargement likely due to lymphadenopathy shown on prior CT. Electronically signed by: Jimy Osei M.D. 04/17/2017 6:48 PM Dictated Date/Time: 04/17/2017 6:45 PM
[2017-04-17 18:51] LABS: PARTIAL THROMBOPLASTIN RATIO 1.1; PROTHROMBIN TIME (PATIENT) 10.8 SECONDS (9.0-12.0)
[2017-04-17 19:02] LABS: BUN/CREATININE RATIO 25.4 (10-20); CREATININE 0.61 mg/dl (0.60-1.20); POTASSIUM 5.1 mmol/L (3.5-5.1)
[2017-04-17 19:11] LABS: ALB/GLOB RATIO 0.6 (0.9-2)
[2017-04-17] MEDS ORDERED: OPTIRAY 320 IV PRN (19:15)
--- NOTE | 2017-04-17 19:43 | DIAGNOSTIC IMAGING REPORT ---
CT ANGIOGRAM OF THE CHEST CLINICAL HISTORY: Dyspnea. Hypoxia. Atypical chest pain. COMPARISON STUDY: Chest x-ray dated 04/17/2017. Chest CT scans dated 03/27/2017 and 12/18/2013. TECHNIQUE: Following the IV administration of 107 cc of Optiray 320, CT angiogram of the chest was performed from the upper abdomen to the thoracic inlet utilizing the pulmonary embolus protocol. Images are reviewed in the axial, sagittal, and coronal planes. 3-D MIPS images are created and assessed. IV contrast was administered without complication. A dose lowering technique was utilized adhering to the principles of ALARA. The Examination is significantly motion compromised. CT DOSE: 337.11 mGy.cm FINDINGS: Thyroid: Imaged portions of the thyroid gland are normal in size and attenuation. Thoracic aorta: There is atherosclerotic calcification of the thoracic aorta, which is normal in caliber and demonstrates standard 3-vessel arch anatomy. No dissection is seen. Pulmonary vasculature: The pulmonary trunk is dilated, measuring 3.3 cm in diameter. This suggests pulmonary artery hypertension. There are no filling defects identified in main, lobar, or proximal segmental pulmonary branches to suggest pulmonary embolus. Evaluation of the peripheral vessels is degraded by motion artifact. Heart: The heart is top normal in size and without pericardial effusion. The coronary arteries are densely calcified. Lungs and pleural spaces: Evaluation of the lung parenchyma is degraded by motion artifact. Advanced emphysema is identified. Superimposed interstitial lung disease is suspected. There is patchy airspace consolidation seen throughout both lungs. Trace pleural fluid is seen on the right. A large calcification the right middle lobe is similar to previous. The trachea and central airways are clear. Mediastinum: There are scattered subcentimeter mediastinal lymph nodes. These are not pathologically enlarged by size criteria. Marylou: Clear. Axillae: There is no axillary lymphadenopathy. Upper abdomen: There is a small hiatal hernia. Reflux of contrast into the IVC and hepatic veins suggests cardiac dysfunction. Skeletal structures: The skeletal structures are osteopenic. No lytic or blastic bony lesions are seen. IMPRESSION: 1. Significantly motion compromised examination. 2. There is no evidence of pulmonary embolus in the main, lobar, or proximal segmental pulmonary arteries. 3. Advanced emphysema and suspect superimposed interstitial lung disease. 4. Patchy consolidative change is seen throughout both lungs. The appearance is nonspecific, and this could represent pneumonia, aspiration pneumonitis, pulmonary edema, and/or pulmonary hemorrhage. Clinical correlation will be essential and radiographic follow-up to resolution is recommended. 5. Trace right pleural effusion. 6. Additional findings as above. Electronically signed by: Greg Ronquillo M.D. 04/17/2017 7:41 PM Dictated Date/Time: 04/17/2017 7:35 PM
[2017-04-17] MEDS ORDERED: FUROSEMIDE INJ 40 MG in SYRINGE 0 ML IV STA (19:55)
[2017-04-17] MEDS ORDERED: ALBUT/IPRATROP 3MG/0.5MG NEB 3 ML VIAL INH STA (19:55)
[2017-04-17 20:07] LABS: MAGNESIUM 2.2 mg/dl (1.8-2.4)
[2017-04-17] MEDS ORDERED: METHYLPREDNISOLONE IV 40 MG in SYRINGE 0 ML IV ONE (20:15)
[2017-04-17] MEDS ORDERED: FUROSEMIDE 40 MG/4 ML VIAL IV STA (20:32)
[2017-04-17] MEDS ORDERED: PIPERACILLIN/TAZOBACTAM 4.5 GM/100ML D5W IV STA (22:11)
[2017-04-17] MEDS ORDERED: CYCLOBENZAPRINE HCL 5 MG TAB PO PRN (22:15)
[2017-04-17] MEDS ORDERED: LEVALBUTEROL/IPRATROPIUM NEB INH PRN (22:15)
[2017-04-17] MEDS ORDERED: NITROGLYCERIN 0.4 MG SL PER TAB CHARGE SL PRN (22:15)
[2017-04-17] MEDS ORDERED: INSULIN GLARGINE SOLOSTAR 100 UNITS/ML 3 ML PEN SC ONE (22:30)
[2017-04-17 22:39] VITALS: BP 147/82; PULSE 98; TEMP 36.2; Ht 157.5 cm; Wt 62.8 kg
[2017-04-17 22:50] VITALS: BP 135/85; PULSE 90; TEMP 36.4; O2SAT 93
[2017-04-17 22:59] VITALS: O2SAT 98
[2017-04-17] MEDS ORDERED: PIPERACILL/TAZOBAC IV 4.5 GM in DEXTROSE 5% 100ML IV ONE (23:00)
[2017-04-17] MEDS ORDERED: LEVALBUTEROL 1.25MG/0.5ML NEB INH PRN (23:00)
[2017-04-17] MEDS ORDERED: IPRATROPIUM BROMIDE NEB SOLN 0.02% 2.5 ML VIAL INH PRN (23:00)
[2017-04-17] MEDS ORDERED: LANTUS PER UNIT CHARGE SQ ONE (23:15)
[2017-04-17] MEDS ORDERED: CEFTRIAXONE SOD INJ 1000 MG in DEXTROSE 5% 50ML IV SCH (23:30)
[2017-04-18] VITALS (14 sets, daily range): BP systolic 95–119; BP diastolic 62–74; PULSE 82–103; TEMP 36.3–37.2; O2SAT 87–100
[2017-04-18] MEDS ORDERED: PIPERACILL/TAZOBAC CONSULT ACTIVE PRN (00:08)
[2017-04-18] MEDS: LEVALBUTEROL 1.25MG/0.5ML NEB INH SCH ×4 (01:50→19:15)
[2017-04-18] MEDS: IPRATROPIUM BROMIDE NEB SOLN 0.02% 2.5 ML VIAL INH SCH ×4 (01:50→19:15)
[2017-04-18] MEDS ORDERED: LEVALBUTEROL/IPRATROPIUM NEB INH SCH (03:00)
[2017-04-18] MEDS: PIPERACILL/TAZOBAC IV 3.375 GM in DEXTROSE 5% 100ML IV SCH ×3 (06:30→21:55)
[2017-04-18 07:21] LABS: BASO % 0.1 %; BASO ABS # 0.01 K/uL (0-0.2); COMPLETE YES; EOS % 0.1 %; HEMATOCRIT 31.1 % (37-47); IG% 0.3 %; LYMPH ABS # 0.91 K/uL (1.2-3.4); MEAN CELL VOLUME 91.7 fL (80-100); MEAN CORPUSCULAR HEMOGLOBIN 30.1 pg (25-34); MEAN CORPUSCULAR HGB CONC 32.8 g/dl (32-36); MONO % 8.7 %; NEUT % 81.8 %; PLATELET COUNT 235 K/uL (130-400); RED BLOOD COUNT 3.39 M/uL (4.2-5.4); WHITE BLOOD COUNT 10.13 K/uL (4.8-10.8)
[2017-04-18 07:52] LABS: BUN/CREATININE RATIO 25.6 (10-20); CREATININE 0.7 mg/dl (0.60-1.20)
[2017-04-18] MEDS: LACTOBACILLUS ACIDOPHILUS (FLORANEX) TAB PO SCH (08:33)
[2017-04-18] MEDS: ASPIRIN 81 MG ECTAB PO SCH (08:34)
[2017-04-18] MEDS: METOPROLOL TARTRATE 25 MG TAB PO SCH ×2 (08:34→21:54)
[2017-04-18] MEDS: ENOXAPARIN 30 MG/0.3 ML SYR SC SCH (08:36)
--- NOTE | 2017-04-18 08:48 | HISTORY & PHYSICAL EXAMINATION ---
DATE OF ADMISSION: 04/17/2017 PRIMARY CARE PHYSICIAN: Dr. Conklin. CHIEF COMPLAINT: Shortness of breath. HISTORY OF PRESENT ILLNESS: History obtained from patient and records. Medical history significant for chronic respiratory failure secondary to COPD/ ILD (pulmonary fibrosis) on home O2, COPD, past tobacco abuse, history of CVA, spina bifida. Recent confinement about 2 weeks ago for acute on chronic hypoxemic respiratory failure secondary to COPD exacerbation. Found to be at risk for aspiration by swallow eval during confinement. Swallow eval done, dental soft diet recommended, aspiration precautions. Recommendations as follows: Patient must be fully upright for meals and 30 minutes after meals. Stringent oral care. Alternate solids and liquids. Would benefit from continued speech at discharge for care over safe swallow strategies. Patient discharged to [facility] for rehab. Last day the patient noted increasing shortness of breath, cough, unable to expectorate, admits to coughing with meals if she is not careful. Patient thinks she is also filling up fluid. Patient denies chest pain. At the Emergency Room, initial O2 sat 60s on room air. MEDICAL HISTORY: As above. 2D echo from 2014 showed EF of 60-65%, normal LV systolic function, EF 60-65%, grade 1 diastolic dysfunction. SURGERIES: Cataract surgery, hysterectomy. HOME MEDICATIONS: Include budesonide, calcium plus D, Lomotil, Xopenex, loperamide, sertraline, home O2, albuterol, aspirin, metoprolol, nortriptyline , probiotic, Crestor, sertraline, Vesicare ALLERGIES: TO CORN OIL, LACTOSE AND MORPHINE. FAMILY HISTORY: Lung cancer. PERSONAL AND SOCIAL HISTORY: Past tobacco use. No chronic intake of alcoholic beverages. Disabled. REVIEW OF SYSTEMS: As per HPI, all other ROS negative. PHYSICAL EXAMINATION: VITAL SIGNS: Blood pressure was noted to be 147/82, pulse rate 98, respiratory rate 24, temperature 36.5, sats 64 on room air, later 94, mask. GENERAL: Noted to be in some respiratory distress, chronically ill. SKIN: Pallor. HEENT: Pale palpebral conjunctivae. Dry mucosa. O2 mask noted. NECK: Supple. CHEST: Expiratory wheezes. HEART: Regular rate and rhythm. ABDOMEN: Some distention, nontender. EXTREMITIES: Minimal LE edema, no tenderness. NEUROLOGIC: No gross focality LABORATORY DATA: Hemoglobin was noted to be 10.7, hematocrit 34.3, white cells 11.5, platelets 275. Sodium 134, potassium 5.1, chloride 99, CO2 of 29, BUN 15, creatinine 0.6, glucose 131. Troponin 0.09. BNP 3290. CTA: No evidence of pulmonary embolus, advanced COPD, interstitial lung disease, patchy consolidation nonspecific, pneumonia, aspiration pneumonitis, pulmonary edema, pulmonary hemorrhage. EKG as per my interpretation, rate 105, sinus tachycardia, no ischemia. ASSESSMENT: 1. Acute on chronic hypoxemic respiratory failure multifactorial : chronic obstructive pulmonary disease/ILD exacerbation secondary to healthcare associated pneumonia, possible aspiration pneumonia (known aspiration risk as per swallow eval from recent confinement). acute congestive heart failure. 3. Hypertension, stable. 4. Past tobacco abuse. 5. History CVA as per records 6. hx spina bifida. 7. anemia, subacute, hemoglobin noted to be 10 at some point during recent confinement. PLAN: PCU supplemental O2. Baseline ABG. Continue aspiration precautions. Cultures. Hipolito mao RTC, prn; steroids. Pulmonary consult RE respiratory failure/COPD/ILD exacerbation. Patient known to Dr. Dave. Sulaiman strict IOs, daily weights. CHF education Cardiology consult. RE CHF DVT prophylaxis, Lovenox subcu. Full code. Total critical care time was 45 minutes. MTDD
[2017-04-18] MEDS ORDERED: CONSULT PHARMACY SCH (09:00)
[2017-04-18] MEDS ORDERED: FUROSEMIDE INJ 40 MG in SYRINGE 0 ML IV SCH (09:00)
[2017-04-18] MEDS ORDERED: CHLORDIAZEPOXIDE PO SCH (09:00)
[2017-04-18] MEDS ORDERED: NORTRIPTYLINE HCL 25 MG CAP PO SCH (09:00)
[2017-04-18] MEDS ORDERED: SOLIFENACIN SUCCINATE 5 MG PO SCH (09:00)
[2017-04-18] MEDS ORDERED: CLIDINIUM PO SCH (09:00)
--- NOTE | 2017-04-18 09:36 | ECHOCARDIOGRAM REPORT ---
*NOTICE TO RECEIVING [employer]Y This information is strictly Confidential and protected under [place] law. [place] law prohibits you from making any further disclosure of this information unless further disclosure is expressly permitted by the written consent of the person to whom it pertains or is authorized by law. A general authorization for the release of medical or other information is not sufficient for this purpose. Hospital accepts no responsibility if the information is made available to any other person, INCLUDING THE PATIENT. Interpretation Summary * Name: JES BATEMAN Study Date: 04/18/2017 06:41 AM BP: 108/68 mmHg * Patient Location: C.2T\S\E221\S\1 HR: 106 * : 1955 (M/d/yyyy) Gender: Female Height: 62 in * Age: 61 yrs Ethnicity: CA Weight: 143 lb * Ordering Physician: Julio Heaton * Referring Physician: Self, Referred * Performed By: Dion Blake RCS * * Reason For Study: CJF * BSA: 1.7 m2 * -- Conclusions -- * The left ventricle is normal in size. * There is normal left ventricular wall thickness. * The left ventricular wall motion is normal. * Left ventricular systolic function is normal. * Ejection Fraction = 65-70%. * There are no significant valvular abnormalities. * There is mild tricuspid regurgitation. * Right ventricular systolic pressure is moderately elevated at 40-50mmHg. Procedure Details * A contrast injection of Definity was performed to improve assessment of LV function. * Contrast was injected into an intravenous site in the left arm. * One vial of Definity ultrasound contrast was diluted in normal saline to a total volume of 10 ml. A total of '3' ml of solution was administered during imaging. * Lot # [id number] of Definity utilized for procedure. * Expiration date 1AUG18. * The study was technically difficult. * A complete two-dimensional transthoracic echocardiogram was performed (2D, M-mode, Doppler and color flow Doppler). Left Ventricle * The left ventricle is normal in size. * There is normal left ventricular wall thickness. * Ejection Fraction = 65-70%. * Left ventricular systolic function is normal. * The left ventricular wall motion is normal. Right Ventricle * The right ventricle is normal in size and function. Atria * The left atrial size is normal. * Right atrial size is normal. * No ASD detected; PFO is not assessed. Mitral Valve * The mitral valve is normal. * There is no mitral valve stenosis. * There is trace mitral regurgitation. Tricuspid Valve * The tricuspid valve anatomy is normal. * There is no tricuspid stenosis. * There is mild tricuspid regurgitation. * Right ventricular systolic pressure is elevated at 40-50mmHg. Aortic Valve * The aortic valve is trileaflet. * No hemodynamically significant valvular aortic stenosis. * No aortic regurgitation is present. Pulmonic Valve * The pulmonic valve is not well visualized. Great Vessels * The aortic root is normal size. Pericardium/Pleural * There is no pericardial effusion. Great Vessels * Normal inferior vena cava diameter and respiratory variation suggests normal central venous pressure. MMode 2D Measurements and Calculations IVSd 0.93 cm LVIDd 3.8 cm LVIDs 2.1 cm LVPWd 0.91 cm IVS/LVPW 1.0 FS 45.4 % EDV(Teich) 63.9 ml ESV(Teich) 14.5 ml EF(Teich) 77.4 % EDV(cubed) 57.0 ml ESV(cubed) 9.3 ml EF(cubed) 83.7 % LV mass(C)d 105.9 grams LV mass(C)dI 63.9 grams/m\S\2 SV(Teich) 49.4 ml SI(Teich) 29.8 ml/m\S\2 SV(cubed) 47.7 ml SI(cubed) 28.8 ml/m\S\2 Ao root diam 2.8 cm Ao root area 6.0 cm\S\2 LVOT diam 2.0 cm LVOT area 3.1 cm\S\2 LVAd ap4 17.4 cm\S\2 LVLd ap4 5.5 cm EDV(MOD-sp4) 42.4 ml EDV(sp4-el) 46.6 ml LVAs ap4 9.5 cm\S\2 LVLs ap4 4.4 cm ESV(MOD-sp4) 16.0 ml ESV(sp4-el) 17.4 ml EF(MOD-sp4) 62.1 % EF(sp4-el) 62.6 % LVAd ap2 16.3 cm\S\2 LVLd ap2 6.5 cm EDV(MOD-sp2) 33.3 ml EDV(sp2-el) 34.8 ml LVAs ap2 8.2 cm\S\2 LVLs ap2 5.8 cm ESV(MOD-sp2) 9.1 ml ESV(sp2-el) 9.7 ml EF(MOD-sp2) 72.7 % EF(sp2-el) 72.1 % LVLd %diff 14.9 % EDV(MOD-bp) 39.9 ml LVLs %diff 24.8 % ESV(MOD-bp) 13.2 ml EF(MOD-bp) 66.9 % SV(MOD-sp4) 26.3 ml SI(MOD-sp4) 15.9 ml/m\S\2 SV(MOD-sp2) 24.2 ml SI(MOD-sp2) 14.6 ml/m\S\2 SV(MOD-bp) 26.7 ml SI(MOD-bp) 16.1 ml/m\S\2 SV(sp4-el) 29.2 ml SI(sp4-el) 17.6 ml/m\S\2 SV(sp2-el) 25.1 ml SI(sp2-el) 15.1 ml/m\S\2 Doppler Measurements and Calculations MV E max chio 60.4 cm/sec MV A max chio 62.0 cm/sec MV E/A 0.97 MV dec time 0.16 sec Ao V2 max 120.7 cm/sec Ao max PG 5.8 mmHg Ao max PG (full) 1.7 mmHg TERRI(V,A) 2.6 cm\S\2 TERRI(V,D) 2.6 cm\S\2 LV V1 max PG 4.2 mmHg LV V1 max 101.9 cm/sec TR max chio 261.3 cm/sec
--- NOTE | 2017-04-18 10:29 | Cardiology Consultation ---
Cardiology Consultation Date of Consultation: Apr 18, 2017 Requesting Physician: Florina Attending Accounts Receivable Manager: Junito (Steven Caballero PA-C) History of Present Illness Mrs. Maurer is a 61 year old female who is being seen at the request of Dr. Heaton. Reason for consultation is congestive heart failure. Mrs. Maurer was recently hospitalized here at [facility] March 24, 2017 to April 06, 2017 with acute on chronic hypoxemic respiratory failure felt to be secondary to right sided pneumonia, interstitial lung disease flare. Barium swallow was negative for aspiration. She was discharged to [facility] where. Yesterday she was observed to have increased work of breathing, cyanosis, marked hypoxemia. She was given a DuoNeb treatment in the field and transported to the ER where she was observed to be hypoxic into the 60's on arrival, increasing to 100% on 10 L Oxy Mask. CXR was interpreted by Dr. Osie as demonstrating increased interstitial thickening and bilateral opacities since March 31, 2017 and bilateral hilar enlargement felt to be lymphadenopathy. CT was negative for PE, revealing advanced emphysema, superimposed interstitial lung disease, patchy consolidative change is seen throughout both lungs, and a trace right pleural effusion. Treatments in the ER included a Duoneb, Solumedrol and 40 mg IV furosemide. Mrs. Maurer states "I didn't notice anything myself." The patient notes feeling OK this morning. She notes a cough with difficulty expectorating sputum , dry mouth, chronic diarrhea, and chronic bilateral lower extremity peripheral edema. She denies chest pain or discomfort, palpitations, orthopnea or PND. No lightheadedness, dizziness, near syncope, or syncope. She denies fevers or chills. (Steven Caballero PA-C) Past Medical/Surgical History Problem List: Past Medical and Surgical History: Spina bifida Chronic respiratory failure Chronic obstructive pulmonary disease Interstitial lung disease, pulmonary fibrosis Pulmonary hypertension Chart history of CVA in 2011June 22, 2000 diagnostic cardiac catheterization performed by Dr. Wild at [facility] reveal very minor early atherosclerotic changes without any evidence of obstructive disease. Hypertension Dyslipidemia Esophagitis Anemia Generalized anxiety disorder Depression Migraine headaches Complete hysterectomy in 1991 Colonoscopy with polypectomy in September 2009 Cataract extraction in 2012 Right wrist fracture status post repair Family History: Positive for CAD in both parents. Father at 79. Mother at 87. Eight siblings. Two brothers with known CAD, one suffering an LA in his 40's. Brother with lung cancer. Social History: Reformed smoker, quit in April 2015 after smoking 1 ppd since her early 20's. No smokeless tobacco use. No alcohol. No illegal drug use. . Two children without cardiac issues. Disabled. Worked at [employer] in [place] x 12 years. (Steven Caballero PA-C) Family History Cancer BROTHER (lung CA) (Steven Caballero PA-C) Cancer BROTHER (lung CA) (Latrell Wild M.D.) Social History Smoking Status: Former Smoker Drug Use: none Marital Status: Housing Status: lives with family Occupation: employed, disabled (Steven Caballero PA-C) Review Of Systems General: Recurrent falls. No known abrupt weight change. No fever or chills. HEENT: Headaches. Cataract extractions. Cardiovascular: No chest pain or chest discomfort. No palpitations. No orthopnea or PND. + Edema. No near syncope or syncope. Pulmonary: + Cough. + Wheezing. No hemoptysis. Gastrointestinal: + Chronic diarrhea. No nausea or vomiting. Skin: No rash. Musculoskeletal: Knee pain. Back pain. Neurological: +CVA. See above. Complete review of systems is as stated above, negative, or noncontributory. (Steven Caballero PA-C) Allergies Coded Allergies: [place] Oil (Verified Adverse Reaction, Mild, GI UPSET, 04/17/17) Lactose Intolerance (GI) (Verified Adverse Reaction, Mild, GI SYMPTOMS, ) Morphine (Verified Adverse Reaction, Mild, confusion, 04/17/17) Medications Reported Home Medications Medications Dose Route/Sig Max Daily Dose Days Date Category Dose Instructions Lopressor (Metoprolol Tartrate) 25 Mg Tab 25 Mg PO BID 04/17/17 Reported Saline Nasal Marlin (Saline) 0.65 % Spr 2 Sprays NA BID 04/06/17 Rx Levalbuterol 1.25 Mg/0.5 Ml Nebu 1.25 Mg INH Q4H PRN 10 04/06/17 Rx Proair Respiclick (Albuterol Sulfate) 108 Mcg/Act Aer 2 Puffs INH Q4H PRN 03/23/17 Reported Zoloft (Sertraline HCl) 25 Mg Tab 25 Mg PO QPM 03/23/17 Reported TAKE 25MG WITH 50MG FOR A TOTAL DOSE OF 75MG DAILY [Alteril] 0.5 Cap PO HS 04/07/16 Reported Oxygen Gas 3 Liters NA PRN 04/06/16 Reported Crestor (Rosuvastatin Calcium) 20 Mg Tab 20 Mg PO QPM 03/20/16 Reported Probiotic (Probiotic Product) 1 Cap Cap 1 Cap PO DAILY 08/03/15 Reported Flexeril (Cyclobenzaprine Hcl) 5 Mg Tab 5 Mg PO TID PRN 08/03/15 Reported PRN Imodium (Loperamide HCl) 2 Mg Cap 2 Mg PO UD 08/03/15 Reported Take 1 tab by mouth once. Then take 1 tablet after each loose BM. No more than 4 tablets per day for up to 2 days. Isometheptene/Dichloralph 325-65-100 mg (Eispgchepuchu-Opgnpmkhkjamy-Of) 1 Cap Cap 1 Cap PO PRN UD 08/03/15 Reported Take 2 tablets at onset of headache then 1 every hour until headache resolves. No more than 5 tabs in 24 hours. Lomotil (Diphenoxylate HCl/Atropine) Tab 1 Tab PO BID PRN 08/03/15 Reported Aspirin Ec (Aspirin) 81 Mg Tab 81 Mg PO DAILY 04/29/15 Reported Pamelor (Nortriptyline Hcl) 25 Mg Cap 25 Mg PO QAM 04/29/15 Reported Vesicare (Solifenacin Succinate) 5 Mg Tab 5 Mg PO QAM 04/29/15 Reported Tudorza Pressair (Aclidinium [place]) 400 Mcg/Act Aer 1 Puff INH BID 04/29/15 Reported Sertraline HCl 50 Mg Tab 50 Mg PO QPM 04/29/15 Reported TAKE WITH 25MG FOR TOTAL DOSE OF 75MG Symbicort 80/4.5 Inhaler (Budesonide/Formoterol Fumarate) 120 Puffs/ Aero 2 Puffs INH BID 04/29/15 Reported Os-Harman 500 Plus D (Calcium/Vitamin D) Tab 1 Tab PO BID 02/14/13 Reported Pepcid (Famotidine) 20 Mg Tab 20 Mg PO QPM 02/14/13 Reported Librax 5MG/2.5MG (Chlordiazepoxide/Clidinium) 1 Ea Cap 1 Ea PO BID 09/07/12 Reported (Steven Caballero PA-C) Physical Exam Vital Signs (Last 8hrs): Last 8 Hrs Date Time Temp Pulse Resp B/P (MAP) Pulse Ox O2 Delivery O2 Flow Rate FiO2 04/18/17 07:59 36.7 103 18 112/71 (85) 95 3.0 04/18/17 07:38 97 18 94 Nasal Cannula 3.0 04/18/17 04:20 99 Nasal Cannula 3.0 04/18/17 04:15 36.8 90 18 108/68 (81) 100 Nasal Cannula 4.0 General Appearance: Alert and Oriented x3. NAD. HEENT: Normocephalic Atraumatic. PER. EOMI. Conjunctiva and sclera pale. Neck: No JVD. No HJR. No carotid bruits. Pulmonary: Markedly decreased. Poor air exchange. Dry rales. Cardiovascular: RRR, 100 bpm. No gallop. Soft systolic murmur at the lower left sternal border. PMI is not displaced. No rub. Abdomen: Normal bowel sounds, soft nontender. no abdominal bruits. De La Paz catheter in place draining light yellow urine. Extremities: + Clubbing. Mild edema, lymphedematous changes. No cyanosis. Distal pulses 1/4 bilaterally. Psychiatric: Normal affect. (Steven Caballero PA-C) Data Last 24 Hours Test 04/17/17 18:21 04/17/17 18:22 04/17/17 18:28 04/17/17 21:57 White Blood Count 11.56 K/uL Red Blood Count 3.70 M/uL Hemoglobin 10.7 g/dL Hematocrit 34.3 % Mean Corpuscular Volume 92.7 fL Mean Corpuscular Hemoglobin 28.9 pg Mean Corpuscular Hemoglobin Concent 31.2 g/dl Platelet Count 275 K/uL Mean Platelet Volume 9.5 fL Neutrophils (%) (Auto) 93.7 % Lymphocytes (%) (Auto) 4.8 % Monocytes (%) (Auto) 1.0 % Eosinophils (%) (Auto) 0.1 % Basophils (%) (Auto) 0.1 % Neutrophils # (Auto) 10.83 K/uL Lymphocytes # (Auto) 0.56 K/uL Monocytes # (Auto) 0.11 K/uL Eosinophils # (Auto) 0.01 K/uL Basophils # (Auto) 0.01 K/uL RDW Standard Deviation 52.5 fL RDW Coefficient of Variation 15.5 % Immature Granulocyte % (Auto) 0.3 % Immature Granulocyte # (Auto) 0.04 K/uL Venous Blood pH 7.41 Venous Blood Partial Pressure CO2 46 mmHg Venous Blood Partial Pressure O2 39 mmHg Venous Blood HCO3 29 mmol/L Venous Blood Oxygen Saturation 71.5 % Venous Blood Base Excess 3.3 mmol/L Prothrombin Time 10.8 SECONDS Prothromb Time International Ratio 1.0 Activated Partial Thromboplast Time 28.5 SECONDS Partial Thromboplastin Ratio 1.1 Sodium Level 134 mmol/L Potassium Level 5.1 mmol/L Chloride Level 99 mmol/L Carbon Dioxide Level 29 mmol/L Anion Gap 6.0 mmol/L Blood Urea Nitrogen 15 mg/dl Creatinine 0.61 mg/dl Est Creatinine Clear Calc Drug Dose 84.6 ml/min Estimated GFR () 112.6 Estimated GFR (Non- 97.2 BUN/Creatinine Ratio 25.4 Random Glucose 131 mg/dl Calcium Level 9.0 mg/dl Magnesium Level 2.2 mg/dl Total Bilirubin 0.5 mg/dl Aspartate Amino Transf (AST/SGOT) 29 U/L Alanine Aminotransferase (ALT/SGPT) 28 U/L Alkaline Phosphatase 118 U/L Total Creatine Kinase 42 U/L Creatine Kinase MB 2.1 ng/ml Creatine Kinase MB Ratio 5.0 Troponin I 0.093 ng/ml 0.090 ng/ml Pro-B-Type Natriuretic Peptide 3290 pg/ml Total Protein 7.3 gm/dl Albumin 2.8 gm/dl Globulin 4.5 gm/dl Albumin/Globulin Ratio 0.6 Bedside D-Dimer > 450 ng/mlFEU Test 04/18/17 00:10 04/18/17 06:31 04/18/17 07:10 04/18/17 08:48 Bedside Glucose 189 mg/dl 161 mg/dl White Blood Count 10.13 K/uL Red Blood Count 3.39 M/uL Hemoglobin 10.2 g/dL Hematocrit 31.1 % Mean Corpuscular Volume 91.7 fL Mean Corpuscular Hemoglobin 30.1 pg Mean Corpuscular Hemoglobin Concent 32.8 g/dl Platelet Count 235 K/uL Mean Platelet Volume 9.0 fL Neutrophils (%) (Auto) 81.8 % Lymphocytes (%) (Auto) 9.0 % Monocytes (%) (Auto) 8.7 % Eosinophils (%) (Auto) 0.1 % Basophils (%) (Auto) 0.1 % Neutrophils # (Auto) 8.29 K/uL Lymphocytes # (Auto) 0.91 K/uL Monocytes # (Auto) 0.88 K/uL Eosinophils # (Auto) 0.01 K/uL Basophils # (Auto) 0.01 K/uL RDW Standard Deviation 51.3 fL RDW Coefficient of Variation 15.2 % Immature Granulocyte % (Auto) 0.3 % Immature Granulocyte # (Auto) 0.03 K/uL Sodium Level 139 mmol/L Potassium Level 4.0 mmol/L Chloride Level 100 mmol/L Carbon Dioxide Level 30 mmol/L Anion Gap 9.0 mmol/L Blood Urea Nitrogen 18 mg/dl Creatinine 0.70 mg/dl Est Creatinine Clear Calc Drug Dose 72.0 ml/min Estimated GFR () 107.6 Estimated GFR (Non- 92.9 BUN/Creatinine Ratio 25.6 Random Glucose 126 mg/dl Calcium Level 9.0 mg/dl EKG dated and timed 17-APR-2017 @ 17:25:18: Sinus tachycardia. EKG dated and timed 18-APR-2017 @ 07:21:13: Normal sinus rhythm at 97 bpm. April 18, 2017 TTE Interpretation Summary ([facility], Dr. Wild): The left ventricle is normal in size. There is normal left ventricular wall thickness. The left ventricular wall motion is normal. Left ventricular systolic function is normal. Ejection Fraction = 65-70%. There are no significant valvular abnormalities. There is mild tricuspid regurgitation. Right ventricular systolic pressure is moderately elevated at 40-50 mmHg. Telemetry: Sinus. Sinus tachycardia. No atrial fibrillation or flutter. No pauses. (Steven Caballero PA-C) Assessment & Plan Complex 61 year old female rehospitalized with acute hypoxemia respiratory failure complicated by evidence of acute decompensated right heart failure felt to be secondary to her elevated pulmonary artery systolic pressures, significant underlying pulmonary disease. Troponin's are minimally elevated, without historical symptoms, electrocardiographic, or echocardiographic findings of an acute coronary syndrome. RECOMMENDATIONS/PLAN: Recommend Pulmonary evaluation Serial cardiac enzymes 40 mg IV furosemide today; reassess ongoing need for IV diuretics in AM. 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 Bilateral lower extremity venous duplex to assess for DVT Continue low dose beta-derek therapy, hopefully decreasing the likelihood of future atrial arrhythmias Further recommendations pending the above, evaluation by Dr. Wild, and her ongoing hospitalization. (Steven Caballero, AVNI) Patient was seen and personally examined. Agree with assessment and plan as per Steven GARCIA. Patient with chronic hypoxic lung disease with worsening hypoxia as outpatient. Exam initially reflective of edema, mild volume overload reflective of right heart failure with preserved/hyperdynamic LV systolic function Will likely require at least intermittent diuretic use to manage in the future. Latrell Wild MD (Latrell Wild,MLin.)
[2017-04-18 11:02] LABS: ARTERIAL BLD GAS O2 SATURATION 82.8 % (90-95); ARTERIAL BLOOD GAS BASE EXCESS 4.2 mEq/L (-9-1.8); ARTERIAL BLOOD GAS HCO3 28 mmol/L (19-24); ARTERIAL BLOOD GAS PO2 47 mm/Hg (80-95); ARTERIAL BLOOD GAS pH 7.48 (7.35-7.45)
[2017-04-18 11:03] LABS: ALLEN TEST POS (POS); O2 ADMINISTRATION 3 L
--- NOTE | 2017-04-18 11:34 | Pulmonary Consultation ---
History General Date of Service: Apr 18, 2017. Stated Complaint: Respiratory Failure, Admks-Yk-Mvtpmiy HPI The patient is a 61 year old female who presents to [facility] with complaints of Respiratory Failure, Tvzkw-[id number]-Myhqqyx. The patient's primary care provider is Onel Conklin D.O. 61-yo female admitted to [facility] 04/17/17 from by EMS from SNF with dyspnea / Hypoxia (64%-RA) and peripheral edema. She was admitted with hypoxic respiratory failure. W/U notable for WBC: 11.65, Hgb/Hct: 10.7/34.3, Plts: 275. VB.41 with pCO2: 46. D-dimer: >450. ABG 04/18/17: 7.48-pCO2: 38 Chest X-Ray 04/17/17: "IMPRESSION: 1. Increase in interstitial thickening and bilateral opacities since exam of March 31, 2017. The findings could reflect pulmonary edema or pneumonia superimposed upon interstitial lung disease/emphysema. 2. Bilateral hilar enlargement likely due to lymphadenopathy shown on prior CT. " CT ANGIOGRAM OF THE CHEST 04/17/17: "IMPRESSION: 1. Significantly motion compromised examination. 2. There is no evidence of pulmonary embolus in the main, lobar, or proximal segmental pulmonary arteries. 3. Advanced emphysema and suspect superimposed interstitial lung disease. 4. Patchy consolidative change is seen throughout both lungs. The appearance is nonspecific, and this could represent pneumonia, aspiration pneumonitis, pulmonary edema, and/or pulmonary hemorrhage. Clinical correlation will be essential and radiographic follow-up to resolution is recommended. 5. Trace right pleural effusion. 6. Additional findings as above." ALSO NOTED dilation of the pulmonary trunk ECHOCARDIOGRAM 04/18/17: - EF: 65/70%, RVSP: 40-50mmHg, Mild TR, trace MR PMHx includes: ILD, COPD/pulmonary emphysema + O2, h/o right thalamic CVA, DJK, chronic anemia, Spina bifida, GERD, complicated UTI, h/o recurrent falls, and anxiety. Former tobacco: 25-30-pack year, quit 03/2016. Patient was recently admitted to [facility] 03/24/17 - 04/06/17 with UTI, cough, and hypoxic respiratory failure. She was treated with antibiotic (levofloxacin), diuresis, pulmonary toilet (dornase + VEST) and titrated O2. Barium swallow noted esophageal dysmotility, no aspiration. She was placed aspiration precautions. She was discharged to SNF on a tapered steroid. Patient is somewhat known in the outpatient office initially seen 2013 with concern for interstitial pulmonary process. Work-up at that time included PFT and CT. CT at that time described calcified and noncalcified mediastinal and right hilar lymph nodes and dense popcorn calcification of the RML with emphysema and basal areas of associated interstitial thickening and edema. Her follow-up and compliance with daily is somewhat inconsistent but she did use O2 "I think 3LPM" as prescribed. Additionally, she does have prescribed inhalers which she states she will use "as needed" generally 4x/week. Prior to her previous admission, she denied any symptoms of daily dyspnea, prior hemoptysis, cough or wheeze. She is with 2-step children. She was born in [place], [place] and is a life-long [place] resident and prior to SNF, she lived with her , 1 dog and 1 cat in a ranch-style home in [place], [place]. 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 She denies travel or ETOH consumptions. She does state that her mother had both lung and heart problems. She denies any h/o aspiration but states that at times , meat may feel stuck in her throat. Historian: patient Past Medical History Past Medical History: - Spina Bifida - Thyroid nodule - Heart failure - Right thalamic lacunar infarct - Benign neoplasm of the large intestine/ - Esophagitis, - Hypertension - Dyslipidemia - Migraine headaches - Degenerative joint disease - H/o falls - interstitial lung disease - Pulmonary emphysema - Pulmonary edema Past Surgical History: - Bronchoscopy - Cardiac catheterization - Cataract surgery - Colonoscopy - Hysterectomy - Oophorectomy - Spine Repair - Tubal ligation Family History Cancer BROTHER (lung CA) 1. Family history of Lung Cancer - Brother 2. Family history of Coronary Artery Disease V17.49 3. Family history of Diabetes Mellitus V18.0 4. Family history of Epilepsy And Recurrent Seizures V17.2 5. Family history of Heart Disease V17.49 6. Family history of Hypertension V17.49 7. Family history of Lung Involvement In Disease Classified Elsewhere 8. Family history of Reported Family History Of Kidney Disease Social History Hx Tobacco Use In Past Year?: No Smoking Status: Former Smoker Marital status: Housing status: lives with family Occupational Status: employed, disabled Immunizations History of Influenza Vaccine: Yes Influenza Vaccine Date: Jul 12, 2012 History of Tetanus Vaccine?: Unknown History of Pneumococcal: Unknown Pneumococcal Date: February 04, 2008 History of Hepatitis B Vaccine: No History of MDRO History of MDRO: Yes Type of MDRO: MRSA Allergies Coded Allergies: Addison Oil (Verified Adverse Reaction, Mild, GI UPSET, 04/17/17) Lactose Intolerance (GI) (Verified Adverse Reaction, Mild, GI SYMPTOMS, ) Morphine (Verified Adverse Reaction, Mild, confusion, 04/17/17) Current Medications Reported Home Medications Medications Dose Route/Sig Max Daily Dose Days Date Category Dose Instructions Lopressor (Metoprolol Tartrate) 25 Mg Tab 25 Mg PO BID 04/17/17 Reported Saline Nasal [place] (Saline) 0.65 % Spr 2 Sprays NA BID 04/06/17 Rx Levalbuterol 1.25 Mg/0.5 Ml Nebu 1.25 Mg INH Q4H PRN 10 04/06/17 Rx Proair Respiclick (Albuterol Sulfate) 108 Mcg/Act Aer 2 Puffs INH Q4H PRN 03/23/17 Reported Zoloft (Sertraline HCl) 25 Mg Tab 25 Mg PO QPM 03/23/17 Reported TAKE 25MG WITH 50MG FOR A TOTAL DOSE OF 75MG DAILY [Alteril] 0.5 Cap PO HS 04/07/16 Reported Oxygen Gas 3 Liters NA PRN 04/06/16 Reported Crestor (Rosuvastatin Calcium) 20 Mg Tab 20 Mg PO QPM 03/20/16 Reported Probiotic (Probiotic Product) 1 Cap Cap 1 Cap PO DAILY 08/03/15 Reported Flexeril (Cyclobenzaprine Hcl) 5 Mg Tab 5 Mg PO TID PRN 08/03/15 Reported PRN Imodium (Loperamide HCl) 2 Mg Cap 2 Mg PO UD 08/03/15 Reported Take 1 tab by mouth once. Then take 1 tablet after each loose BM. No more than 4 tablets per day for up to 2 days. Isometheptene/Dichloralph 325-65-100 mg (Gfzcaqsmtqubb-Jdmbefwqnwmak-Uv) 1 Cap Cap 1 Cap PO PRN UD 08/03/15 Reported Take 2 tablets at onset of headache then 1 every hour until headache resolves. No more than 5 tabs in 24 hours. Lomotil (Diphenoxylate HCl/Atropine) Tab 1 Tab PO BID PRN 08/03/15 Reported Aspirin Ec (Aspirin) 81 Mg Tab 81 Mg PO DAILY 04/29/15 Reported Pamelor (Nortriptyline Hcl) 25 Mg Cap 25 Mg PO QAM 04/29/15 Reported Vesicare (Solifenacin Succinate) 5 Mg Tab 5 Mg PO QAM 04/29/15 Reported Tudorza Pressair (Aclidinium Milligan) 400 Mcg/Act Aer 1 Puff INH BID 04/29/15 Reported Sertraline HCl 50 Mg Tab 50 Mg PO QPM 04/29/15 Reported TAKE WITH 25MG FOR TOTAL DOSE OF 75MG Symbicort 80/4.5 Inhaler (Budesonide/Formoterol Fumarate) 120 Puffs/ Aero 2 Puffs INH BID 04/29/15 Reported Os-Harman 500 Plus D (Calcium/Vitamin D) Tab 1 Tab PO BID 02/14/13 Reported Pepcid (Famotidine) 20 Mg Tab 20 Mg PO QPM 02/14/13 Reported Librax 5MG/2.5MG (Chlordiazepoxide/Clidinium) 1 Ea Cap 1 Ea PO BID 09/07/12 Reported Physical Physical Exam Vital Signs: Date Time Temp Pulse Resp B/P (MAP) Pulse Ox O2 Delivery O2 Flow Rate FiO2 04/18/17 07:59 36.7 103 18 112/71 (85) 95 3.0 04/18/17 07:38 97 18 94 Nasal Cannula 3.0 04/18/17 04:20 99 Nasal Cannula 3.0 04/18/17 04:15 36.8 90 18 108/68 (81) 100 Nasal Cannula 4.0 04/18/17 01:50 93 20 100 Nasal Cannula 4.0 04/18/17 01:05 100 Nasal Cannula 4.0 04/18/17 00:05 100 Oxymask 04/17/17 22:59 98 Mask 10.0 04/17/17 22:50 36.4 90 20 135/85 (102) 93 Oxymask 04/17/17 22:39 36.2 98 24 147/82 04/17/17 20:36 93 23 139/93 94 Room Air 04/17/17 19:36 87 20 120/80 94 Mask 10.0 04/17/17 17:38 96 04/17/17 17:25 100 Mask 10.0 04/17/17 17:25 100 Oxymask 10.0 04/17/17 17:10 36.5 115 24 105/76 64 Room Air Constitutional: WDWN female sitting up in bed watching the [employer]. Eyes: pupils 3mm equal. Arcus seniles. Mouth: upper dentures. Moist mucous membranes. Mallampati I. No erythema or exudate. Respiratory: non-labored respirations. O2 via [place]. 1x loose cough on exam. Fine crackles at bases. No wheeze or rhonchi CV: RRR, no MRG. Warm peripherally Impressive bilateral clubbing Abdomen: Soft. Hypoactive bowel sounds. GI: De La Paz catheter draining clear yellow fluid MSK/Extremities: Weak LE bilaterally but mobile. +1 peripheral edema LEs. Post surgical scar posterior chest with bony assymetry. Neurologic: LE weakness. Alert. Cooperative. Diagnostics Labs Results Past 24 Hours Test 04/17/17 18:21 04/17/17 18:22 04/17/17 18:28 04/17/17 21:57 Range/Units White Blood Count 11.56 4.8-10.8 K/uL Red Blood Count 3.70 4.2-5.4 M/uL Hemoglobin 10.7 12.0-16.0 g/dL Hematocrit 34.3 37-47 % Mean Corpuscular Volume 92.7 80-100 fL Mean Corpuscular Hemoglobin 28.9 25-34 pg Mean Corpuscular Hemoglobin Concent 31.2 32-36 g/dl Platelet Count 275 130-400 K/uL Mean Platelet Volume 9.5 7.4-10.4 fL Neutrophils (%) (Auto) 93.7 % Lymphocytes (%) (Auto) 4.8 % Monocytes (%) (Auto) 1.0 % Eosinophils (%) (Auto) 0.1 % Basophils (%) (Auto) 0.1 % Neutrophils # (Auto) 10.83 1.4-6.5 K/uL Lymphocytes # (Auto) 0.56 1.2-3.4 K/uL Monocytes # (Auto) 0.11 0.11-0.59 K/uL Eosinophils # (Auto) 0.01 0-0.5 K/uL Basophils # (Auto) 0.01 0-0.2 K/uL RDW Standard Deviation 52.5 36.4-46.3 fL RDW Coefficient of Variation 15.5 11.5-14.5 % Immature Granulocyte % (Auto) 0.3 % Immature Granulocyte # (Auto) 0.04 0.00-0.02 K/uL Venous Blood pH 7.41 7.36-7.41 Venous Blood Partial Pressure CO2 46 38.0-50.0 mmHg Venous Blood Partial Pressure O2 39 mmHg Venous Blood HCO3 29 mmol/L Venous Blood Oxygen Saturation 71.5 % Venous Blood Base Excess 3.3 mmol/L Prothrombin Time 10.8 9.0-12.0 SECONDS Prothromb Time International Ratio 1.0 0.9-1.1 Activated Partial Thromboplast Time 28.5 21.0-31.0 SECONDS Partial Thromboplastin Ratio 1.1 Sodium Level 134 136-145 mmol/L Potassium Level 5.1 3.5-5.1 mmol/L Chloride Level 99 98-107 mmol/L Carbon Dioxide Level 29 21-32 mmol/L Anion Gap 6.0 3-11 mmol/L Blood Urea Nitrogen 15 7-18 mg/dl Creatinine 0.61 0.60-1.20 mg/dl Est Creatinine Clear Calc Drug Dose 84.6 ml/min Estimated GFR () 112.6 Estimated GFR (Non- 97.2 BUN/Creatinine Ratio 25.4 10-20 Random Glucose 131 70-99 mg/dl Calcium Level 9.0 8.5-10.1 mg/dl Magnesium Level 2.2 1.8-2.4 mg/dl Total Bilirubin 0.5 0.2-1 mg/dl Aspartate Amino Transf (AST/SGOT) 29 15-37 U/L Alanine Aminotransferase (ALT/SGPT) 28 12-78 U/L Alkaline Phosphatase 118 45-117 U/L Total Creatine Kinase 42 26-192 U/L Creatine Kinase MB 2.1 0.5-3.6 ng/ml Creatine Kinase MB Ratio 5.0 0-3.0 Troponin I 0.093 0.090 0-0.045 ng/ml Pro-B-Type Natriuretic Peptide 3290 0-900 pg/ml Total Protein 7.3 6.4-8.2 gm/dl Albumin 2.8 3.4-5.0 gm/dl Globulin 4.5 2.5-4.0 gm/dl Albumin/Globulin Ratio 0.6 0.9-2 Bedside D-Dimer > 450 0-450 ng/mlFEU Test 04/18/17 00:10 04/18/17 06:31 04/18/17 07:10 04/18/17 10:03 Range/Units Bedside Glucose 189 161 70-90 mg/dl White Blood Count 10.13 4.8-10.8 K/uL Red Blood Count 3.39 4.2-5.4 M/uL Hemoglobin 10.2 12.0-16.0 g/dL Hematocrit 31.1 37-47 % Mean Corpuscular Volume 91.7 80-100 fL Mean Corpuscular Hemoglobin 30.1 25-34 pg Mean Corpuscular Hemoglobin Concent 32.8 32-36 g/dl Platelet Count 235 130-400 K/uL Mean Platelet Volume 9.0 7.4-10.4 fL Neutrophils (%) (Auto) 81.8 % Lymphocytes (%) (Auto) 9.0 % Monocytes (%) (Auto) 8.7 % Eosinophils (%) (Auto) 0.1 % Basophils (%) (Auto) 0.1 % Neutrophils # (Auto) 8.29 1.4-6.5 K/uL Lymphocytes # (Auto) 0.91 1.2-3.4 K/uL Monocytes # (Auto) 0.88 0.11-0.59 K/uL Eosinophils # (Auto) 0.01 0-0.5 K/uL Basophils # (Auto) 0.01 0-0.2 K/uL RDW Standard Deviation 51.3 36.4-46.3 fL RDW Coefficient of Variation 15.2 11.5-14.5 % Immature Granulocyte % (Auto) 0.3 % Immature Granulocyte # (Auto) 0.03 0.00-0.02 K/uL Sodium Level 139 136-145 mmol/L Potassium Level 4.0 3.5-5.1 mmol/L Chloride Level 100 98-107 mmol/L Carbon Dioxide Level 30 21-32 mmol/L Anion Gap 9.0 3-11 mmol/L Blood Urea Nitrogen 18 7-18 mg/dl Creatinine 0.70 0.60-1.20 mg/dl Est Creatinine Clear Calc Drug Dose 72.0 ml/min Estimated GFR () 107.6 Estimated GFR (Non- 92.9 BUN/Creatinine Ratio 25.6 10-20 Random Glucose 126 70-99 mg/dl Calcium Level 9.0 8.5-10.1 mg/dl Microbiology Results 04/17/17 Blood Culture, Received Pending 04/17/17 Blood Culture, Received Pending 04/18/17 MRSA DNA Surveillance Screen - Final, Complete Specimen Positive for MRSA by DNA Probe Impression Assessment and Plan 61-yo female re-admitted with acute on chronic hypoxic respiratory failure with elevated pulmonary pressure on echocardiogram - clinically improving - LE duplex pending - Nocturnal O2 study for additional nocturnal O2 needs - Barium swallow negative for aspiration - modified barium swallow - Consideration of echo bubble study - Continue bronchodilators, aspiration antimicrobial coverage and precautions - Extended steroid taper Case discussed with DR. Becerra. The case was discussed and patient reviewed and the plan is agreed upon.
--- NOTE | 2017-04-18 12:15 | DIAGNOSTIC IMAGING REPORT ---
VENOUS DOPPLER LW EXT BILAT HISTORY: Pain. Edema. edema. R/o dv COMPARISON STUDY: None. FINDINGS: There is normal compressibility, flow, and augmentation within the bilateral lower extremity deep venous systems. IMPRESSION: No DVT within the right or left lower extremity. The above report was generated using voice recognition software. It may contain grammatical, syntax or spelling errors. Electronically signed by: Steven Vidal M.D. 04/18/2017 12:13 PM Dictated Date/Time: 04/18/2017 12:13 PM
--- NOTE | 2017-04-18 13:39 | Psychiatric Consultation ---
Consultation Date of Consultation Apr 18, 2017. Identifying Data 61-year-old woman admitted to the hospital with acute on chronic hypoxia related to COPD, pulmonary fibrosis. We are requested to evaluate the patient for depression. Information is gathered from the patient and the electronic medical record, and considered to be reliable. Chief Complaint "[]". History of Present Illness Kami Maurer is a 61-year-old woman with medical history significant for chronic respiratory failure, COPD, pulmonary fibrosis on chronic O2, history of a CVA, spina bifida, who was in our hospital several weeks ago for acute on chronic hypoxia. She was discharged from here to [facility]. She says that she felt she had been doing well there until the days leading to hospitalization when she was increasingly short of breath and found to be hypoxic in the emergency room with O2 sats in the 60s on room air. She also says that she has pneumonia. In discussing her mood, she says that she has been "depressed" for "some time" but cannot specifically say how long. She has been on Zoloft 75 mg from her PCP, Dr. Conklin which she thinks has been somewhat helpful to her mood. She denies any acute stressors other than her multiple medical conditions and the need to be from her who is generally her caregiver. She reports chronic anxiety, saying that she worries about her family and other things that are out of her control. She denies panic attacks. She says she generally sleeps well, 8 hours per night, when she takes an byeb-oju-tmaoeee medicine she calls Woopieell. She had a period of time when her appetite was poor but she describes that it is getting better and is eating well today. She denies that she is ever experienced any auditory or visual hallucinations. She has no problems with anger, self- injurious behaviors and denies any symptoms that would be congruent with a bipolar disorder. She denies suicidal thinking. Past Psychiatric History Current OP Treatment: therapist (Heidy Monroy) Prior OP Treatment: no prior treatment Prior Psych Hospitalizations: none Access to a Gun: No Suicide Attempts: No Past Medication Trials Cannot remember Past Medical/Surgical History History of Concussion/Seizure: No (1) Spina bifida (2) Irritable colon (3) Essential hypertension (4) Dyslipidemia (5) Chronic obstructive lung disease (6) Pulmonary fibrosis (7) COPD exacerbation (8) History of CVA (cerebrovascular accident) Allergies Allergies: Coded Allergies: [place] Oil (Verified Adverse Reaction, Mild, GI UPSET, 04/17/17) Lactose Intolerance (GI) (Verified Adverse Reaction, Mild, GI SYMPTOMS, ) Morphine (Verified Adverse Reaction, Mild, confusion, 04/17/17) Home Medications Scheduled Kdyuxbsflgszk-Woxkxxltkysda-Fg (Isometheptene/Dichloralph 325-65-100 mg), 1 CAP PO PRN UD Aclidinium [place] (Tudorza Pressair), 1 PUFF INH BID Aspirin (Aspirin Ec), 81 MG PO DAILY Budesonide/Formoterol Fumarate (Symbicort 80/4.5 Inhaler), 2 PUFFS INH BID Calcium/Vitamin D (Os-Harman 500 Plus D), 1 TAB PO BID Chlordiazepoxide/Clidinium (Librax 5MG/2.5MG), 1 EA PO BID Famotidine (Pepcid), 20 MG PO QPM Home O2 Therapy (Oxygen), 3 LITERS NA PRN Loperamide Hcl (Imodium), 2 MG PO UD Metoprolol Tartrate (Lopressor), 25 MG PO BID Nortriptyline Hcl (Pamelor), 25 MG PO QAM Probiotic Product (Probiotic), 1 CAP PO DAILY Rosuvastatin Calcium (Crestor), 20 MG PO QPM Saline (Saline Nasal Alden), 2 SPRAYS NA BID Sertraline (Zoloft), 25 MG PO QPM Sertraline HCl (Sertraline HCl), 50 MG PO QPM Solifenacin Succinate (Vesicare), 5 MG PO QAM [Alteril], 0.5 CAP PO HS Scheduled PRN Albuterol Sulfate (Proair Respiclick), 2 PUFFS INH Q4H PRN for SOB/Wheezing Cyclobenzaprine Hcl (Flexeril), 5 MG PO TID PRN for Muscle Spasms Diphenoxylate/Atropine (Lomotil), 1 TAB PO BID PRN for Diarrhea Levalbuterol (Levalbuterol), 1.25 MG INH Q4H PRN for Shortness of Breath Family History Cancer BROTHER (lung CA) History of Suicide: No History of Substance Abuse: No Psychiatric History: Yes (son is bipolar) Alcohol Use Alcohol Use In Past 12 Months: No Smoking Use Smoking Status: Former Smoker Substance History Denies Personal History Lives in: [place] with her , currently residing at [facility] [place] Education: graduated from high school Work History: Retired since having a stroke 3 years ago. 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 [place] Relationship History: (first marriage did not last long, she has been to her second for 29 years.) Children: 1 biological child to her first relationship, one stepchild to her second h Legal History: none Psychological Trauma History: Denies Hx Traumatic Event Review of Systems Constitutional: other (anxiety) Eyes: denies: no symptoms, as stated in HPI, eye pain, tearing, itching, redness, discharge, double vision, visual changes, blurred vision, photophobia, other ENT: denies: no symptoms reported, see HPI, ear pain, ear discharge, loss of hearing, tinnitus, nasal pain, nasal congestion, rhinorrhea, epistaxis, sore throat, stidor, throat swelling, mouth pain, mouth swelling, dental pain, gum swelling, other Cardiovascular: denies: no symptoms reported, see HPI, chest pain, chest tightness, chest pressure, diaphoresis, palpitations, syncope, other Respiratory: reports: short of breath (wearing O2 by nasal cannula) Gastrointestinal: diarrhea Genitourinary - Female: denies: no symptoms, see HPI, rash, amenorrhea, dysmenorrhea, menorrhagia, metrorrhagia, , vaginal bleeding, vaginal itching, vaginal discharge, vulvadynia, other Musculoskeletal: back pain (and leg pain) Integumentary: denies no symptoms reported, denies see HPI, denies change in color, denies change in hair/nails, denies dryness, denies lesions, denies lumps , denies rash, denies other Neurologic: reports: other (right-sided motor impairment secondary to spina bifida. CVA 3 years ago but has regained total function on her left side) Endocrine: denies: no symptoms, as stated in HPI, cold intolerance, heat intolerance, hair changes, goiter, polydipsia, polyuria, skin changes, other Hematologic / Lymphatic: denies: no symptoms, as stated in HPI, abnormal clotting, adenopathy, anemia, easy bleeding, easy bruising, gums bleeding, petechiae, other Examination Physical Examination As per Dr. Oconer Vital Signs Vital Signs Past 12 Hours Date Time Temp Pulse Resp B/P (MAP) Pulse Ox O2 Delivery O2 Flow Rate FiO2 04/18/17 12:00 Nasal Cannula 3.0 04/18/17 11:02 36.3 86 18 99/62 (74) 95 3.0 04/18/17 08:00 Nasal Cannula 3.0 04/18/17 07:59 36.7 103 18 112/71 (85) 95 3.0 04/18/17 07:38 97 18 94 Nasal Cannula 3.0 04/18/17 04:20 99 Nasal Cannula 3.0 04/18/17 04:15 36.8 90 18 108/68 (81) 100 Nasal Cannula 4.0 04/18/17 01:50 93 20 100 Nasal Cannula 4.0 Laboratory Results Last 24 Hours Test 04/17/17 18:21 04/17/17 18:22 04/17/17 18:28 04/17/17 21:57 White Blood Count 11.56 K/uL Red Blood Count 3.70 M/uL Hemoglobin 10.7 g/dL Hematocrit 34.3 % Mean Corpuscular Volume 92.7 fL Mean Corpuscular Hemoglobin 28.9 pg Mean Corpuscular Hemoglobin Concent 31.2 g/dl Platelet Count 275 K/uL Mean Platelet Volume 9.5 fL Neutrophils (%) (Auto) 93.7 % Lymphocytes (%) (Auto) 4.8 % Monocytes (%) (Auto) 1.0 % Eosinophils (%) (Auto) 0.1 % Basophils (%) (Auto) 0.1 % Neutrophils # (Auto) 10.83 K/uL Lymphocytes # (Auto) 0.56 K/uL Monocytes # (Auto) 0.11 K/uL Eosinophils # (Auto) 0.01 K/uL Basophils # (Auto) 0.01 K/uL RDW Standard Deviation 52.5 fL RDW Coefficient of Variation 15.5 % Immature Granulocyte % (Auto) 0.3 % Immature Granulocyte # (Auto) 0.04 K/uL Venous Blood pH 7.41 Venous Blood Partial Pressure CO2 46 mmHg Venous Blood Partial Pressure O2 39 mmHg Venous Blood HCO3 29 mmol/L Venous Blood Oxygen Saturation 71.5 % Venous Blood Base Excess 3.3 mmol/L Prothrombin Time 10.8 SECONDS Prothromb Time International Ratio 1.0 Activated Partial Thromboplast Time 28.5 SECONDS Partial Thromboplastin Ratio 1.1 Sodium Level 134 mmol/L Potassium Level 5.1 mmol/L Chloride Level 99 mmol/L Carbon Dioxide Level 29 mmol/L Anion Gap 6.0 mmol/L Blood Urea Nitrogen 15 mg/dl Creatinine 0.61 mg/dl Est Creatinine Clear Calc Drug Dose 84.6 ml/min Estimated GFR () 112.6 Estimated GFR (Non- 97.2 BUN/Creatinine Ratio 25.4 Random Glucose 131 mg/dl Calcium Level 9.0 mg/dl Magnesium Level 2.2 mg/dl Total Bilirubin 0.5 mg/dl Aspartate Amino Transf (AST/SGOT) 29 U/L Alanine Aminotransferase (ALT/SGPT) 28 U/L Alkaline Phosphatase 118 U/L Total Creatine Kinase 42 U/L Creatine Kinase MB 2.1 ng/ml Creatine Kinase MB Ratio 5.0 Troponin I 0.093 ng/ml 0.090 ng/ml Pro-B-Type Natriuretic Peptide 3290 pg/ml Total Protein 7.3 gm/dl Albumin 2.8 gm/dl Globulin 4.5 gm/dl Albumin/Globulin Ratio 0.6 Bedside D-Dimer > 450 ng/mlFEU Test 04/18/17 00:10 04/18/17 06:31 04/18/17 07:10 04/18/17 10:54 Bedside Glucose 189 mg/dl 161 mg/dl White Blood Count 10.13 K/uL Red Blood Count 3.39 M/uL Hemoglobin 10.2 g/dL Hematocrit 31.1 % Mean Corpuscular Volume 91.7 fL Mean Corpuscular Hemoglobin 30.1 pg Mean Corpuscular Hemoglobin Concent 32.8 g/dl Platelet Count 235 K/uL Mean Platelet Volume 9.0 fL Neutrophils (%) (Auto) 81.8 % Lymphocytes (%) (Auto) 9.0 % Monocytes (%) (Auto) 8.7 % Eosinophils (%) (Auto) 0.1 % Basophils (%) (Auto) 0.1 % Neutrophils # (Auto) 8.29 K/uL Lymphocytes # (Auto) 0.91 K/uL Monocytes # (Auto) 0.88 K/uL Eosinophils # (Auto) 0.01 K/uL Basophils # (Auto) 0.01 K/uL RDW Standard Deviation 51.3 fL RDW Coefficient of Variation 15.2 % Immature Granulocyte % (Auto) 0.3 % Immature Granulocyte # (Auto) 0.03 K/uL Sodium Level 139 mmol/L Potassium Level 4.0 mmol/L Chloride Level 100 mmol/L Carbon Dioxide Level 30 mmol/L Anion Gap 9.0 mmol/L Blood Urea Nitrogen 18 mg/dl Creatinine 0.70 mg/dl Est Creatinine Clear Calc Drug Dose 72.0 ml/min Estimated GFR () 107.6 Estimated GFR (Non- 92.9 BUN/Creatinine Ratio 25.6 Random Glucose 126 mg/dl Calcium Level 9.0 mg/dl Arterial Blood pH 7.48 Arterial Blood Partial Pressure CO2 38 mmHg Arterial Blood Partial Pressure O2 47 mm/Hg Arterial Blood HCO3 28 mmol/L Arterial Blood Oxygen Saturation 82.8 % Arterial Blood Base Excess 4.2 mEq/L Arterial Blood Gas Delivery 3 L Sharif Test POS Test 04/18/17 11:15 04/18/17 13:00 Bedside Glucose 159 mg/dl Mental Examination During interview pt is: alert and oriented, cooperative Appearance: appropriately groomed Eye contact is: good Motor behavior is: no abnormal motor movements Speech: normal in rate, rhythm & volume Affect: blunted Mood is: depressed, anxious Thought process: goal directed Thought content: reality based without delusions Suicidal thought are: denied Homicidal thoughts are: denied Hallucinations: denies auditory, denies visual Cognition: memory grossly intact, attention grossly intact, language grossly intact Intelligence estimated to be: average Insight: fair Judgement: fair Impression / Recommendations Impression 61-year-old with multiple medical problems as previously listed, admitted to the hospital with acute on chronic respiratory failure again. We are consulted to evaluate depression. The patient endorses feeling sad depressed and chronically anxious. She feels that the Zoloft has been helpful and is agreeable to increasing this to 100 mg daily. She generally takes it in the morning but finds that it makes her sleepy and so we will dose it at bedtime but if her sleep is disturbed it should be returned to a.m. She takes Pamelor 25 mg for her anxiety and generally takes this at night although prescribed in the morning here. I will take the liberty of making that change. She already sees a therapist whom she feels comfortable with and Dr. Conklin is doing a good job with her medications. She meets no criteria for inpatient mental health treatment and should return to her outpatient providers upon discharge. Inventory Assets Strengths: Love of family, willingness for treatment Risk Factors Assessment : Yes /single/: No Higher / Fall in social status: No Access to guns: No Health problems: Yes Mental Health Diagnoses: Yes Substance use disorders: No Previous attempt: No Family history of suicide: No Previous psychiatric stay: No Smoker: No Protective Factors Assessment Hindu beliefs: Yes : Yes Responsible for young children: No Employed: No Stable relationships: Yes Supportive family: Yes Recommendations (1) Depression 04/18 - Increase Zoloft to 100 mg daily at bedtime. If this disturbs her sleep it should be returned to a.m - Dose pamelor 25 mg. at HS -Patient should return to her outpatient therapist Heidy Monroy, and Dr. Conklin can continue to manage her psychiatric medications. -She meets no criteria for inpatient mental health treatment Has been reviewed with Dr. Jennifer Giang
--- NOTE | 2017-04-18 14:57 | DIAGNOSTIC IMAGING REPORT ---
VIDEO SWALLOW HISTORY: Cough. Dyspnea. cough TECHNIQUE: Video fluoroscopic evaluation of swallowing was performed in the AP and lateral projections by the speech pathology staff. The patient is fed nectar-thick and thin liquid barium, a barium coated wafer, and barium pudding. FLUOROSCOPY TIME: 1.2 minutes. COMPARISON STUDY: 04/03/2017 FINDINGS: Diminished oral motility. No evidence for aspiration. Mildly disordered esophageal motility IMPRESSION: 1. No aspiration identified. Somewhat disordered esophageal and oral motility 2. Please see the speech pathologist report for detailed findings and recommendations. The above report was generated using voice recognition software. It may contain grammatical, syntax or spelling errors. Electronically signed by: Steven Vidal M.D. 04/18/2017 2:55 PM Dictated Date/Time: 04/18/2017 2:54 PM
--- NOTE | 2017-04-18 16:06 | Progress Note ---
Internal Med Progress Note Date of Service: Apr 18, 2017. Provider Documentation: SUBJECTIVE: The patient was seen and examined Denies any symptoms Was admitted with low saturation She denies to have any symptoms OBJECTIVE: Vital Signs-as noted below Exam: General-No distress at rest Eyes-normal ENT-normal Neck-Supple Lungs-decreased breath sound bilaterally Minimal crackles at the bases Heart-Regular Abdomen-Benign,no masses,bowel sound present Extremities-No edema Neuro-AAOx3 Generally weak and lethargic Lab data as noted below. ASSESSMENT & PLAN: Acute on chronic hypoxemic respiratory failure Multifactorial : Chronic obstructive pulmonary disease/ILD exacerbation Healthcare associated pneumonia, Possible aspiration pneumonia (known aspiration risk as per swallow eval from recent confinement). Barium Swallow-negative for any aspiration Acute congestive heart failure. supplemental O2. Baseline ABG. Continue aspiration precautions. Cultures. Zosyn nebs RTC, prn; steroids. Pulmonary consult RE respiratory failure/COPD/ILD exacerbation. Patient known to Dr. Dave. Congestive Hearty Failure IV Lasix Strict IOs, daily weights. CHF education Cardiology consult. RE CHF Appreciate Cardiology input Hypertension, stable. Past tobacco abuse. History CVA as per records hx spina bifida. Anemia, subacute, Hemoglobin noted to be 10 at some point during recent confinement. DVT prophylaxis US legs-no DVT Lovenox subcu. Full code. Vital Signs: Date Time Temp Pulse Resp B/P (MAP) Pulse Ox O2 Delivery O2 Flow Rate FiO2 04/18/17 12:00 Nasal Cannula 3.0 04/18/17 11:02 36.3 86 18 99/62 (74) 95 3.0 04/18/17 08:00 Nasal Cannula 3.0 04/18/17 07:59 36.7 103 18 112/71 (85) 95 3.0 04/18/17 07:38 97 18 94 Nasal Cannula 3.0 04/18/17 04:20 99 Nasal Cannula 3.0 04/18/17 04:15 36.8 90 18 108/68 (81) 100 Nasal Cannula 4.0 04/18/17 01:50 93 20 100 Nasal Cannula 4.0 04/18/17 01:05 100 Nasal Cannula 4.0 04/18/17 00:05 100 Oxymask 04/17/17 22:59 98 Mask 10.0 04/17/17 22:50 36.4 90 20 135/85 (102) 93 Oxymask 04/17/17 22:39 36.2 98 24 147/82 04/17/17 20:36 93 23 139/93 94 Room Air 04/17/17 19:36 87 20 120/80 94 Mask 10.0 04/17/17 17:38 96 04/17/17 17:25 100 Mask 10.0 04/17/17 17:25 100 Oxymask 10.0 04/17/17 17:10 36.5 115 24 105/76 64 Room Air Lab Results: Results Past 24 Hours Test 04/17/17 18:21 04/17/17 18:22 04/17/17 18:28 04/17/17 21:57 Range/Units White Blood Count 11.56 4.8-10.8 K/uL Red Blood Count 3.70 4.2-5.4 M/uL Hemoglobin 10.7 12.0-16.0 g/dL Hematocrit 34.3 37-47 % Mean Corpuscular Volume 92.7 80-100 fL Mean Corpuscular Hemoglobin 28.9 25-34 pg Mean Corpuscular Hemoglobin Concent 31.2 32-36 g/dl Platelet Count 275 130-400 K/uL Mean Platelet Volume 9.5 7.4-10.4 fL Neutrophils (%) (Auto) 93.7 % Lymphocytes (%) (Auto) 4.8 % Monocytes (%) (Auto) 1.0 % Eosinophils (%) (Auto) 0.1 % Basophils (%) (Auto) 0.1 % Neutrophils # (Auto) 10.83 1.4-6.5 K/uL Lymphocytes # (Auto) 0.56 1.2-3.4 K/uL Monocytes # (Auto) 0.11 0.11-0.59 K/uL Eosinophils # (Auto) 0.01 0-0.5 K/uL Basophils # (Auto) 0.01 0-0.2 K/uL RDW Standard Deviation 52.5 36.4-46.3 fL RDW Coefficient of Variation 15.5 11.5-14.5 % Immature Granulocyte % (Auto) 0.3 % Immature Granulocyte # (Auto) 0.04 0.00-0.02 K/uL Venous Blood pH 7.41 7.36-7.41 Venous Blood Partial Pressure CO2 46 38.0-50.0 mmHg Venous Blood Partial Pressure O2 39 mmHg Venous Blood HCO3 29 mmol/L Venous Blood Oxygen Saturation 71.5 % Venous Blood Base Excess 3.3 mmol/L Prothrombin Time 10.8 9.0-12.0 SECONDS Prothromb Time International Ratio 1.0 0.9-1.1 Activated Partial Thromboplast Time 28.5 21.0-31.0 SECONDS Partial Thromboplastin Ratio 1.1 Sodium Level 134 136-145 mmol/L Potassium Level 5.1 3.5-5.1 mmol/L Chloride Level 99 98-107 mmol/L Carbon Dioxide Level 29 21-32 mmol/L Anion Gap 6.0 3-11 mmol/L Blood Urea Nitrogen 15 7-18 mg/dl Creatinine 0.61 0.60-1.20 mg/dl Est Creatinine Clear Calc Drug Dose 84.6 ml/min Estimated GFR () 112.6 Estimated GFR (Non- 97.2 BUN/Creatinine Ratio 25.4 10-20 Random Glucose 131 70-99 mg/dl Calcium Level 9.0 8.5-10.1 mg/dl Magnesium Level 2.2 1.8-2.4 mg/dl Total Bilirubin 0.5 0.2-1 mg/dl Aspartate Amino Transf (AST/SGOT) 29 15-37 U/L Alanine Aminotransferase (ALT/SGPT) 28 12-78 U/L Alkaline Phosphatase 118 45-117 U/L Total Creatine Kinase 42 26-192 U/L Creatine Kinase MB 2.1 0.5-3.6 ng/ml Creatine Kinase MB Ratio 5.0 0-3.0 Troponin I 0.093 0.090 0-0.045 ng/ml Pro-B-Type Natriuretic Peptide 3290 0-900 pg/ml Total Protein 7.3 6.4-8.2 gm/dl Albumin 2.8 3.4-5.0 gm/dl Globulin 4.5 2.5-4.0 gm/dl Albumin/Globulin Ratio 0.6 0.9-2 Bedside D-Dimer > 450 0-450 ng/mlFEU Test 04/18/17 00:10 04/18/17 06:31 04/18/17 07:10 04/18/17 10:54 Range/Units Bedside Glucose 189 161 70-90 mg/dl White Blood Count 10.13 4.8-10.8 K/uL Red Blood Count 3.39 4.2-5.4 M/uL Hemoglobin 10.2 12.0-16.0 g/dL Hematocrit 31.1 37-47 % Mean Corpuscular Volume 91.7 80-100 fL Mean Corpuscular Hemoglobin 30.1 25-34 pg Mean Corpuscular Hemoglobin Concent 32.8 32-36 g/dl Platelet Count 235 130-400 K/uL Mean Platelet Volume 9.0 7.4-10.4 fL Neutrophils (%) (Auto) 81.8 % Lymphocytes (%) (Auto) 9.0 % Monocytes (%) (Auto) 8.7 % Eosinophils (%) (Auto) 0.1 % Basophils (%) (Auto) 0.1 % Neutrophils # (Auto) 8.29 1.4-6.5 K/uL Lymphocytes # (Auto) 0.91 1.2-3.4 K/uL Monocytes # (Auto) 0.88 0.11-0.59 K/uL Eosinophils # (Auto) 0.01 0-0.5 K/uL Basophils # (Auto) 0.01 0-0.2 K/uL RDW Standard Deviation 51.3 36.4-46.3 fL RDW Coefficient of Variation 15.2 11.5-14.5 % Immature Granulocyte % (Auto) 0.3 % Immature Granulocyte # (Auto) 0.03 0.00-0.02 K/uL Sodium Level 139 136-145 mmol/L Potassium Level 4.0 3.5-5.1 mmol/L Chloride Level 100 98-107 mmol/L Carbon Dioxide Level 30 21-32 mmol/L Anion Gap 9.0 3-11 mmol/L Blood Urea Nitrogen 18 7-18 mg/dl Creatinine 0.70 0.60-1.20 mg/dl Est Creatinine Clear Calc Drug Dose 72.0 ml/min Estimated GFR () 107.6 Estimated GFR (Non- 92.9 BUN/Creatinine Ratio 25.6 10-20 Random Glucose 126 70-99 mg/dl Calcium Level 9.0 8.5-10.1 mg/dl Arterial Blood pH 7.48 7.35-7.45 Arterial Blood Partial Pressure CO2 38 35-46 mmHg Arterial Blood Partial Pressure O2 47 80-95 mm/Hg Arterial Blood HCO3 28 19-24 mmol/L Arterial Blood Oxygen Saturation 82.8 90-95 % Arterial Blood Base Excess 4.2 -9-1.8 mEq/L Arterial Blood Gas Delivery 3 L Sharif Test POS POS Test 04/18/17 11:15 04/18/17 13:30 Range/Units Bedside Glucose 159 70-90 mg/dl Troponin I 0.038 0-0.045 ng/ml Microbiology Results 04/17/17 Blood Culture, Received Pending 04/17/17 Blood Culture, Received Pending 04/18/17 MRSA DNA Surveillance Screen - Final, Complete Specimen Positive for MRSA by DNA Probe
[2017-04-18] MEDS ORDERED: SERTRALINE HCL 50 MG TAB PO SCH (21:00)
[2017-04-18] MEDS: NORTRIPTYLINE HCL 25 MG CAP PO SCH (21:54)
[2017-04-18] MEDS: SERTRALINE HCL 50 MG TAB PO SCH (21:54)
[2017-04-18] MEDS: FAMOTIDINE 20 MG TAB PO SCH (21:54)
[2017-04-18] MEDS: ROSUVASTATIN CALCIUM 20 MG TAB PO SCH (21:55)
[2017-04-19] VITALS (13 sets, daily range): BP systolic 96–114; BP diastolic 51–73; PULSE 60–109; TEMP 36.4–37; O2SAT 90–96
[2017-04-19] MEDS: LEVALBUTEROL 1.25MG/0.5ML NEB INH SCH ×4 (02:00→19:10)
[2017-04-19] MEDS: IPRATROPIUM BROMIDE NEB SOLN 0.02% 2.5 ML VIAL INH SCH ×4 (02:00→19:10)
[2017-04-19] MEDS: PIPERACILL/TAZOBAC IV 3.375 GM in DEXTROSE 5% 100ML IV SCH ×3 (06:15→20:41)
[2017-04-19 07:13] LABS: BASO % 0.1 %; BASO ABS # 0.02 K/uL (0-0.2); COMPLETE YES; EOS % 3.1 %; HEMATOCRIT 31.7 % (37-47); IG% 0.3 %; LYMPH % 21.9 %; LYMPH ABS # 3.31 K/uL (1.2-3.4); MEAN CELL VOLUME 93.5 fL (80-100); MEAN CORPUSCULAR HEMOGLOBIN 29.5 pg (25-34); MEAN CORPUSCULAR HGB CONC 31.5 g/dl (32-36); MEAN PLATELET VOLUME 9.7 fL (7.4-10.4); NEUT % 68.6 %; PLATELET COUNT 257 K/uL (130-400); RED BLOOD COUNT 3.39 M/uL (4.2-5.4)
[2017-04-19 07:53] LABS: BUN/CREATININE RATIO 29.6 (10-20); CALCIUM 8.3 mg/dl (8.5-10.1); CREATININE 0.59 mg/dl (0.60-1.20); PHOSPHORUS 2.7 mg/dl (2.5-4.9); POTASSIUM 3.6 mmol/L (3.5-5.1)
[2017-04-19] MEDS: METOPROLOL TARTRATE 25 MG TAB PO SCH ×2 (08:07→20:34)
[2017-04-19] MEDS: ASPIRIN 81 MG ECTAB PO SCH (08:10)
[2017-04-19] MEDS: LACTOBACILLUS ACIDOPHILUS (FLORANEX) TAB PO SCH (08:10)
[2017-04-19] MEDS: ENOXAPARIN 30 MG/0.3 ML SYR SC SCH (08:11)
--- NOTE | 2017-04-19 09:46 | Cardiology Follow-Up ---
Subjective General Date of Service: Apr 19, 2017. Chief Complaint: SOB Pt evaluation today including: conversation w/ patient, physical exam, chart review, lab review, review of studies, review of inpatient medication list History of Present Illness Patient seen and examined. Dyspnea and peripheral edema are improved. No chest pain, palpitations, orthopnea, PND, lightheadedness, dizziness, or near syncope. I/O's are negative 1,559 mL's after two doses of 40 mg IV furosemide. April 18, 2017 TTE Interpretation Summary ([facility], Dr. Wild): The left ventricle is normal in size. There is normal left ventricular wall thickness. The left ventricular wall motion is normal. Left ventricular systolic function is normal. Ejection Fraction = 65-70%. There are no significant valvular abnormalities. There is mild tricuspid regurgitation. Right ventricular systolic pressure is moderately elevated at 40-50mmHg. Allergies Coded Allergies: [place] Oil (Verified Adverse Reaction, Mild, GI UPSET, 04/17/17) Lactose Intolerance (GI) (Verified Adverse Reaction, Mild, GI SYMPTOMS, ) Morphine (Verified Adverse Reaction, Mild, confusion, 04/17/17) Social History Smoking Status: Former Smoker Hx Tobacco Use In Past Year?: No Hx Alcohol Use - Type And Amou: No Hx Substance Use - Type And Am: No Problem List Medical Problems: (1) Elevated troponin Status: Acute (2) Hypoxia Status: Acute (3) Pneumonia Status: Acute (4) Pulmonary edema Status: Acute (5) Right patella fracture Status: Acute (6) UTI (urinary tract infection) Status: Acute (7) Weakness Status: Acute Physical Exam Vital Signs Last Vital Signs Documentation Date Time Temp Pulse Resp B/P (MAP) Pulse Ox O2 Delivery O2 Flow Rate FiO2 04/19/17 07:25 36.8 72 20 97/51 (66) 90 3.0 04/19/17 07:25 Nasal Cannula Physical Exam Constitutional: Level of Distress: NAD, chronically ill Psychiatric: Orientation: to time, to place, to person Neck: pertinent finding (Normal JVP) Lungs: Auscultation: no wheezing, deminished air movement, decreased breath sounds , dry rales/crackles Cardiovascular: Heart Auscultation: RRR (80 bpm), no murmurs, no rubs, no gallops Peripheral Pulses: Radial Pulse: normal on the left, normal on the right Dorsalis Pedis Pulse: normal on the left, normal on the right Abdomen: Bowel Sounds: normal Inspection & Palpation: soft, no tenderness, guarding & rebound Extremities: no cyanosis, edema (Trace to 1+ edema. ), clubbing Assessment and Plan Assessment and Plan Complex 61 year old female rehospitalized with acute hypoxemia respiratory failure complicated by acute decompensated right heart failure secondary to her significant underlying pulmonary disease. Volume overload has responded to initial IV diuresis, two doses of 40 mg IV furosemide. Troponin's were initially minimally elevated, without historical symptoms, electrocardiographic , or echocardiographic findings of an acute coronary syndrome. RECOMMENDATIONS/PLAN: Discontinue IV furosemide Start low dose oral furosemide after supplementing potassium orally. Continue low dose beta-derek therapy, hopefully decreasing the likelihood of future atrial arrhythmias Continue low dose ASA. Patient seen and examined agree with above. Emphasized need for ongoing O2 supplementation. Latrell Wild MD Laboratory Results Last 24 Hours Test 04/18/17 10:54 04/18/17 11:15 04/18/17 13:30 04/18/17 16:20 Arterial Blood pH 7.48 Arterial Blood Partial Pressure CO2 38 mmHg Arterial Blood Partial Pressure O2 47 mm/Hg Arterial Blood HCO3 28 mmol/L Arterial Blood Oxygen Saturation 82.8 % Arterial Blood Base Excess 4.2 mEq/L Arterial Blood Gas Delivery 3 L Sharif Test POS Bedside Glucose 159 mg/dl 162 mg/dl Troponin I 0.038 ng/ml Test 04/18/17 20:21 04/19/17 06:26 04/19/17 06:52 04/19/17 08:36 Bedside Glucose 167 mg/dl 98 mg/dl White Blood Count 15.10 K/uL Red Blood Count 3.39 M/uL Hemoglobin 10.0 g/dL Hematocrit 31.7 % Mean Corpuscular Volume 93.5 fL Mean Corpuscular Hemoglobin 29.5 pg Mean Corpuscular Hemoglobin Concent 31.5 g/dl Platelet Count 257 K/uL Mean Platelet Volume 9.7 fL Neutrophils (%) (Auto) 68.6 % Lymphocytes (%) (Auto) 21.9 % Monocytes (%) (Auto) 6.0 % Eosinophils (%) (Auto) 3.1 % Basophils (%) (Auto) 0.1 % Neutrophils # (Auto) 10.35 K/uL Lymphocytes # (Auto) 3.31 K/uL Monocytes # (Auto) 0.90 K/uL Eosinophils # (Auto) 0.47 K/uL Basophils # (Auto) 0.02 K/uL RDW Standard Deviation 52.7 fL RDW Coefficient of Variation 15.3 % Immature Granulocyte % (Auto) 0.3 % Immature Granulocyte # (Auto) 0.05 K/uL Sodium Level 137 mmol/L Potassium Level 3.6 mmol/L Chloride Level 100 mmol/L Carbon Dioxide Level 32 mmol/L Anion Gap 5.0 mmol/L Blood Urea Nitrogen 17 mg/dl Creatinine 0.59 mg/dl Est Creatinine Clear Calc Drug Dose 85.0 ml/min Estimated GFR () 113.9 Estimated GFR (Non- 98.2 BUN/Creatinine Ratio 29.6 Random Glucose 84 mg/dl Calcium Level 8.3 mg/dl Phosphorus Level 2.7 mg/dl Magnesium Level 2.0 mg/dl
[2017-04-19] MEDS ORDERED: POTASSIUM CHLORIDE 20 MEQ TABCR PO ONE (10:30)
[2017-04-19] MEDS: FUROSEMIDE 20 MG TAB PO SCH (10:41)
--- NOTE | 2017-04-19 10:42 | Pulmonology Progress Note ---
Pulmonary Progress Note Date of Service Apr 19, 2017. Attending Dr. Becerra Subjective No change in dyspnea. Some cough - non-productive. Denies any chest or abdominal pain. Objective 61 year old female admitted 04/17/17 from SNF with acute on chronic hypoxic respiratory failure. PMHx includes: ILD s/p recent admission (d/04/06/17), COPD/pulmonary emphysema + O2, h/o right thalamic CVA, DJK, chronic anemia, Spina bifida, GERD, complicated UTI, h/o recurrent falls, and anxiety. Former tobacco: 25-30-pack year, quit 03/2016. Past 24-hours: - 90-93%: 3LPM - Soft BP, afebrile - Video swallow 04/18 - no aspiration - LE doppler: negative - ABG today: pending - 04/18/17: -1100L Physical Exam: Constitutional: WDWN female lying in hospital bed Eyes: pupils 3mm equal. Arcus seniles. Mouth: upper dentures. Moist mucous membranes. Mallampati I. No erythema or exudate. Respiratory: non-labored respirations. O2 via NC. 1x loose cough on exam. Fine Velcro rales crackles at bases upt to mid- field posteriorly. No wheeze or rhonchi CV: RRR, no MRG. Warm peripherally - bilateral clubbing Abdomen: Soft. Hypoactive bowel sounds. GI: De La Paz catheter draining clear yellow fluid MSK/Extremities: Moving bilaterally. +1 peripheral edema LEs. Post surgical scar posterior chest with bony asymmetry. Neurologic: LE weakness. Alert. Cooperative. Assessment & Plan 61-yo female admitted with acute on chronic hypoxic respiratory failure - clinically improved - Recommend 125 Solu-Medrol the resume 40mg prednisone for prolonged taper - Continue antimicrobial coverage and net negative fluid balance - Add Spiriva to her daily regimen - Consideration of palliative care discussion to continue as an outpatient. Case discussed with Dr. Becerra Patient and plan reviewed and agreed with. Data Medications: Current Inpatient Medications Medications (Trade) Dose Ordered Sig/Bishnu Route Start Time Stop Time Status Last Admin Dose Admin Ioversol (Optiray 320) 111 ml UD PRN IV 04/17/17 19:15 04/21/17 19:14 Enoxaparin Sodium (Lovenox Inj) 30 mg Q24H SC 04/18/17 09:00 05/18/17 08:59 04/19/17 08:11 30 MG Acetaminophen (Tylenol Tab) 650 mg Q4H PRN PO 04/17/17 22:15 05/17/17 22:14 Nitroglycerin (Nitrostat Tab) 0.4 mg UD PRN SL 04/17/17 22:15 05/17/17 22:14 Prednisone (PredniSONE TAB) 40 mg DAILY PO 04/18/17 09:00 04/23/17 08:59 04/19/17 08:10 40 MG Aspirin (Ecotrin Tab) 81 mg DAILY PO 04/18/17 09:00 05/18/17 08:59 04/19/17 08:10 81 MG Cyclobenzaprine HCl (Flexeril Tab) 5 mg TID PRN PO 04/17/17 22:15 05/17/17 22:14 Famotidine (Pepcid Tab) 20 mg QPM PO 04/18/17 21:00 05/18/17 20:59 04/18/17 21:54 20 MG Metoprolol Tartrate (Lopressor Tab) 25 mg BID PO 04/18/17 09:00 05/18/17 08:59 04/18/17 21:54 25 MG Rosuvastatin Calcium (Crestor Tab) 20 mg QPM PO 04/18/17 21:00 05/18/17 20:59 04/18/17 21:55 20 MG Lactobacillus Acidophilus (Floranex Tab) 1 tab DAILY PO 04/18/17 09:00 05/18/17 08:59 04/19/17 08:10 1 TAB Ipratropium [place] (Atrovent 0.02% 0.5MG/2.5ML Neb) 0.5 mg Q6R INH 04/18/17 03:00 05/18/17 02:59 04/19/17 07:23 0.5 MG Levalbuterol (Xopenex 1.25MG/ 0.5ML Neb) 1.25 mg Q6R INH 04/18/17 03:00 05/18/17 02:59 04/19/17 07:23 1.25 MG Ipratropium [place] (Atrovent 0.02% 0.5MG/2.5ML Neb) 0.5 mg Q4R PRN INH 04/17/17 23:00 05/17/17 22:59 Levalbuterol (Xopenex 1.25MG/ 0.5ML Neb) 1.25 mg Q4R PRN INH 04/17/17 23:00 05/17/17 22:59 Miscellaneous Information (Order Awaiting Action) 1 ea QS N/A 04/18/17 00:00 05/18/17 00:00 Miscellaneous Information (Order Awaiting Action) 1 ea QS N/A 04/18/17 00:00 05/18/17 00:00 Piperacillin Sod/ Tazobactam Sod (Consult) 1 ea UD PRN N/A 04/18/17 00:08 05/18/17 00:07 Piperacillin Sod/ Tazobactam Sod 3.375 gm/Dextrose 115 ml @ 28.75 mls/ hr Q8@0600,1400,2200 IV 04/18/17 06:00 04/25/17 05:59 04/19/17 06:15 28.75 MLS/HR Nortriptyline HCl (Pamelor Cap) 25 mg HS PO 04/18/17 21:00 05/18/17 08:59 04/18/17 21:54 25 MG Sertraline HCl (Zoloft Tab) 100 mg HS PO 04/18/17 21:00 05/18/17 20:59 04/18/17 21:54 100 MG Furosemide (Lasix Tab) 20 mg QAM PO 04/19/17 11:00 05/19/17 10:59 Potassium Chloride (Klor-Con M10) 10 meq DAILY PO 04/20/17 09:00 05/20/17 08:59 Vital Signs: Date Time Temp Pulse Resp B/P (MAP) Pulse Ox O2 Delivery O2 Flow Rate FiO2 04/19/17 08:00 Nasal Cannula 4.0 04/19/17 07:25 36.8 72 20 97/51 (66) 90 3.0 04/19/17 07:25 75 18 91 Nasal Cannula 3.0 04/19/17 04:00 91 Nasal Cannula 3.0 04/19/17 03:45 37.0 77 22 109/69 (82) 90 Nasal Cannula 3.0 04/19/17 02:00 73 18 93 Nasal Cannula 3.0 04/19/17 00:00 91 Nasal Cannula 3.0 04/18/17 23:46 87 22 91 Nasal Cannula 3.0 04/18/17 23:33 37.0 82 22 95/62 (73) 87 Nasal Cannula 2.0 04/18/17 20:00 98 Nasal Cannula 3.0 04/18/17 19:57 36.8 93 20 101/66 (78) 95 Nasal Cannula 2.0 04/18/17 19:15 86 18 97 Nasal Cannula 2.0 04/18/17 16:00 Nasal Cannula 3.0 04/18/17 15:25 37.2 84 23 119/74 (89) 97 Nasal Cannula 2.0 04/18/17 12:00 Nasal Cannula 3.0 04/18/17 11:02 36.3 86 18 99/62 (74) 95 3.0 Laboratory Results: Last 24 Hours Test 04/18/17 10:54 04/18/17 11:15 04/18/17 13:30 04/18/17 16:20 Arterial Blood pH 7.48 Arterial Blood Partial Pressure CO2 38 mmHg Arterial Blood Partial Pressure O2 47 mm/Hg Arterial Blood HCO3 28 mmol/L Arterial Blood Oxygen Saturation 82.8 % Arterial Blood Base Excess 4.2 mEq/L Arterial Blood Gas Delivery 3 L Sharif Test POS Bedside Glucose 159 mg/dl 162 mg/dl Troponin I 0.038 ng/ml Test 04/18/17 20:21 04/19/17 06:26 04/19/17 06:52 04/19/17 08:36 Bedside Glucose 167 mg/dl 98 mg/dl White Blood Count 15.10 K/uL Red Blood Count 3.39 M/uL Hemoglobin 10.0 g/dL Hematocrit 31.7 % Mean Corpuscular Volume 93.5 fL Mean Corpuscular Hemoglobin 29.5 pg Mean Corpuscular Hemoglobin Concent 31.5 g/dl Platelet Count 257 K/uL Mean Platelet Volume 9.7 fL Neutrophils (%) (Auto) 68.6 % Lymphocytes (%) (Auto) 21.9 % Monocytes (%) (Auto) 6.0 % Eosinophils (%) (Auto) 3.1 % Basophils (%) (Auto) 0.1 % Neutrophils # (Auto) 10.35 K/uL Lymphocytes # (Auto) 3.31 K/uL Monocytes # (Auto) 0.90 K/uL Eosinophils # (Auto) 0.47 K/uL Basophils # (Auto) 0.02 K/uL RDW Standard Deviation 52.7 fL RDW Coefficient of Variation 15.3 % Immature Granulocyte % (Auto) 0.3 % Immature Granulocyte # (Auto) 0.05 K/uL Sodium Level 137 mmol/L Potassium Level 3.6 mmol/L Chloride Level 100 mmol/L Carbon Dioxide Level 32 mmol/L Anion Gap 5.0 mmol/L Blood Urea Nitrogen 17 mg/dl Creatinine 0.59 mg/dl Est Creatinine Clear Calc Drug Dose 85.0 ml/min Estimated GFR () 113.9 Estimated GFR (Non- 98.2 BUN/Creatinine Ratio 29.6 Random Glucose 84 mg/dl Calcium Level 8.3 mg/dl Phosphorus Level 2.7 mg/dl Magnesium Level 2.0 mg/dl
[2017-04-19] MEDS ORDERED: METHYLPREDNISOLONE IV 125 MG in SYRINGE 0 ML IV SCH (14:00)
--- NOTE | 2017-04-19 14:37 | Progress Note ---
Internal Med Progress Note Date of Service: Apr 19, 2017. Provider Documentation: SUBJECTIVE: The patient was seen and examined Was admitted with low saturation She denies to have any symptoms at rest Saturation was low 80s this AM-refused ABG OBJECTIVE: Vital Signs-as noted below Exam: General-Minimal distress at rest Eyes-normal ENT-normal Neck-Supple Lungs-decreased breath sound bilaterally Minimal crackles at the bases Heart-Regular Abdomen-Benign,no masses,bowel sound present Extremities-No edema Neuro-AAOx3 Generally weak and lethargic Lab data as noted below. ASSESSMENT & PLAN: Acute on chronic hypoxemic respiratory failure Multifactorial : Chronic obstructive pulmonary disease/ILD exacerbation Healthcare associated pneumonia, Possible aspiration pneumonia (known aspiration risk as per swallow eval from recent confinement). Barium Swallow-negative for any aspiration Acute congestive heart failure. supplemental O2. Baseline ABG. Continue aspiration precautions. Cultures-negative . Has been on Zosyn,nebs RTC, prn; steroids. Pulmonary consult RE respiratory failure/COPD/ILD exacerbation. Patient known to Dr. Dave. Was given 125mg of Solumedrol and wuill go with slow tapering of steroid on discharge Congestive Hearty Failure Was on IV Lasix Strict IOs, daily weights. CHF education Cardiology consult. RE CHF Appreciate Cardiology input Started on small dose of Lasix and K supplement Hypertension, stable. Past tobacco abuse. History CVA as per records hx spina bifida. Anemia, subacute, Hemoglobin noted to be 10 at some point during recent confinement. DVT prophylaxis US legs-no DVT Lovenox subcu. Full code. Discussed with the Palliative care consulted Likely back to [place] tomorrow Vital Signs: Date Time Temp Pulse Resp B/P (MAP) Pulse Ox O2 Delivery O2 Flow Rate FiO2 04/19/17 14:27 90 18 92 Nasal Cannula 5.0 04/19/17 12:00 Nasal Cannula 5.0 04/19/17 11:00 36.7 83 20 96/61 (73) 91 5.0 04/19/17 08:00 Nasal Cannula 4.0 04/19/17 07:25 36.8 72 20 97/51 (66) 90 3.0 04/19/17 07:25 75 18 91 Nasal Cannula 3.0 04/19/17 04:00 91 Nasal Cannula 3.0 04/19/17 03:45 37.0 77 22 109/69 (82) 90 Nasal Cannula 3.0 04/19/17 02:00 73 18 93 Nasal Cannula 3.0 04/19/17 00:00 91 Nasal Cannula 3.0 04/18/17 23:46 87 22 91 Nasal Cannula 3.0 04/18/17 23:33 37.0 82 22 95/62 (73) 87 Nasal Cannula 2.0 04/18/17 20:00 98 Nasal Cannula 3.0 04/18/17 19:57 36.8 93 20 101/66 (78) 95 Nasal Cannula 2.0 04/18/17 19:15 86 18 97 Nasal Cannula 2.0 04/18/17 16:00 Nasal Cannula 3.0 04/18/17 15:25 37.2 84 23 119/74 (89) 97 Nasal Cannula 2.0 Lab Results: Results Past 24 Hours Test 04/18/17 16:20 04/18/17 20:21 04/19/17 06:26 04/19/17 06:52 Range/Units Bedside Glucose 162 167 98 70-90 mg/dl White Blood Count 15.10 4.8-10.8 K/uL Red Blood Count 3.39 4.2-5.4 M/uL Hemoglobin 10.0 12.0-16.0 g/dL Hematocrit 31.7 37-47 % Mean Corpuscular Volume 93.5 80-100 fL Mean Corpuscular Hemoglobin 29.5 25-34 pg Mean Corpuscular Hemoglobin Concent 31.5 32-36 g/dl Platelet Count 257 130-400 K/uL Mean Platelet Volume 9.7 7.4-10.4 fL Neutrophils (%) (Auto) 68.6 % Lymphocytes (%) (Auto) 21.9 % Monocytes (%) (Auto) 6.0 % Eosinophils (%) (Auto) 3.1 % Basophils (%) (Auto) 0.1 % Neutrophils # (Auto) 10.35 1.4-6.5 K/uL Lymphocytes # (Auto) 3.31 1.2-3.4 K/uL Monocytes # (Auto) 0.90 0.11-0.59 K/uL Eosinophils # (Auto) 0.47 0-0.5 K/uL Basophils # (Auto) 0.02 0-0.2 K/uL RDW Standard Deviation 52.7 36.4-46.3 fL RDW Coefficient of Variation 15.3 11.5-14.5 % Immature Granulocyte % (Auto) 0.3 % Immature Granulocyte # (Auto) 0.05 0.00-0.02 K/uL Sodium Level 137 136-145 mmol/L Potassium Level 3.6 3.5-5.1 mmol/L Chloride Level 100 98-107 mmol/L Carbon Dioxide Level 32 21-32 mmol/L Anion Gap 5.0 3-11 mmol/L Blood Urea Nitrogen 17 7-18 mg/dl Creatinine 0.59 0.60-1.20 mg/dl Est Creatinine Clear Calc Drug Dose 85.0 ml/min Estimated GFR () 113.9 Estimated GFR (Non- 98.2 BUN/Creatinine Ratio 29.6 10-20 Random Glucose 84 70-99 mg/dl Calcium Level 8.3 8.5-10.1 mg/dl Phosphorus Level 2.7 2.5-4.9 mg/dl Magnesium Level 2.0 1.8-2.4 mg/dl Test 04/19/17 11:15 Range/Units Bedside Glucose 137 70-90 mg/dl
--- NOTE | 2017-04-19 16:25 | Palliative Care Consultation ---
Consultation Date of Consultation: Apr 19, 2017. Requesting Physician: Dr. Currie Attending Physician: Dr. Currie Reason for Consultation: Goals of care History of Present Illness This 61 year old female patient with a PMH of COPD, interstitial lung disease/ pulmonary fibrosis, chronic respiratory failure, CVA, spina bifida, and diastolic dysfunction with preserved EF of 60-65%, presented to the ED two days ago with c/o low oxygen saturation from [facility], where she was receiving rehab after a hospital stay two weeks ago for cute on chronic hypoxemic respiratory failure secondary to COPD exacerbation. During last hospital stay, patient was determined to be an aspiration risk on swallow evaluation, was told to sit upright for meals, alternate solids and liquids, which the patient says she has been doing. She recalled some coughing while eating/drinking if she "wasn't paying attention." Two days ago, her vitals were checked and her pulse ox was low, EMS called and patient brought to [facility]. Sats were noted to be in the 60s on room air upon arrival, CTA showed: No evidence of PE, advanced emphysema, suspect superimposed interstitial lung disease, patchy consolidative change throughout bilateral lungs, possible pneumonia, aspiration pneumonitis, pulmonary edema and/or pulmonary hemorrhage, trace pleural effusion. Patient admitted with COPD and CHF exacerbations- given nebs, steroids and lasix; pneumonia- multifactorial- aspiration vs. HCAP; acute on chronic hypoxemic respiratory failure, and anemia. Pulmonary and cardiology following. Echocardiogram repeated and showed EF of 65-70%, mild mitral valve regurg, and no significant valvular abnormalities. Given patient's deconditioned state from spina bifida and her advanced lung disease, palliative care consulted to help establish goals of care. I met with the patient and her , Charlie Maurer, in room 221. Patient is awake, alert and oriented x4. She denies any pain, SOB, or discomfort at all. Patient states that her lung disease has not been a problem and she hasn't been in the hospital, prior to two weeks ago, since three years ago for a CVA. Patient's , Charlie, did most of the talking and answered most of the questions, patient would nod her head and agree. While stated that they know her chronic conditions can't be cured, they still feel that she has some good time left and they want her to "get better." See plan below. Past Medical/Surgical History Medical History: as above Social History Smoking Status: Former Smoker History of Alcohol Use: No Drug Use: none Marital Status: Housing Status: lives with family Occupation Status: employed, disabled Review of Systems Constitutional: + weakness ENT: + problem reported (coughs occasionally when eating), No trouble swallowing Respiratory: + cough (improving), No shortness of breath Cardiac: + edema (right leg), No chest pain Abdomen: No pain, No nausea, No vomiting Musculoskeletal: + see HPI, + problem reported (deformities related to spina bifida) Neurologic: + weakness, + balance problems Psychiatric: No depression symptoms, No anxiety Allergies Coded Allergies: Olean Oil (Verified Adverse Reaction, Mild, GI UPSET, 04/17/17) Lactose Intolerance (GI) (Verified Adverse Reaction, Mild, GI SYMPTOMS, ) Morphine (Verified Adverse Reaction, Mild, confusion, 04/17/17) Medications Current Inpatient Medications Medications (Trade) Dose Ordered Sig/Bishnu Route Start Time Stop Time Status Last Admin Dose Admin Ioversol (Optiray 320) 111 ml UD PRN IV 04/17/17 19:15 04/21/17 19:14 Enoxaparin Sodium (Lovenox Inj) 30 mg Q24H SC 04/18/17 09:00 05/18/17 08:59 04/19/17 08:11 30 MG Acetaminophen (Tylenol Tab) 650 mg Q4H PRN PO 04/17/17 22:15 05/17/17 22:14 Nitroglycerin (Nitrostat Tab) 0.4 mg UD PRN SL 04/17/17 22:15 05/17/17 22:14 Prednisone (PredniSONE TAB) 40 mg DAILY PO 04/18/17 09:00 04/23/17 08:59 04/19/17 08:10 40 MG Aspirin (Ecotrin Tab) 81 mg DAILY PO 04/18/17 09:00 05/18/17 08:59 04/19/17 08:10 81 MG Cyclobenzaprine HCl (Flexeril Tab) 5 mg TID PRN PO 04/17/17 22:15 05/17/17 22:14 Famotidine (Pepcid Tab) 20 mg QPM PO 04/18/17 21:00 05/18/17 20:59 04/18/17 21:54 20 MG Metoprolol Tartrate (Lopressor Tab) 25 mg BID PO 04/18/17 09:00 05/18/17 08:59 04/18/17 21:54 25 MG Rosuvastatin Calcium (Crestor Tab) 20 mg QPM PO 04/18/17 21:00 05/18/17 20:59 04/18/17 21:55 20 MG Lactobacillus Acidophilus (Floranex Tab) 1 tab DAILY PO 04/18/17 09:00 05/18/17 08:59 04/19/17 08:10 1 TAB Ipratropium [place] (Atrovent 0.02% 0.5MG/2.5ML Neb) 0.5 mg Q6R INH 04/18/17 03:00 05/18/17 02:59 04/19/17 14:24 0.5 MG Levalbuterol (Xopenex 1.25MG/ 0.5ML Neb) 1.25 mg Q6R INH 04/18/17 03:00 05/18/17 02:59 04/19/17 14:24 1.25 MG Ipratropium [place] (Atrovent 0.02% 0.5MG/2.5ML Neb) 0.5 mg Q4R PRN INH 04/17/17 23:00 05/17/17 22:59 Levalbuterol (Xopenex 1.25MG/ 0.5ML Neb) 1.25 mg Q4R PRN INH 04/17/17 23:00 05/17/17 22:59 Miscellaneous Information (Order Awaiting Action) 1 ea QS N/A 04/18/17 00:00 05/18/17 00:00 Miscellaneous Information (Order Awaiting Action) 1 ea QS N/A 04/18/17 00:00 05/18/17 00:00 Piperacillin Sod/ Tazobactam Sod (Consult) 1 ea UD PRN N/A 04/18/17 00:08 05/18/17 00:07 Piperacillin Sod/ Tazobactam Sod 3.375 gm/Dextrose 115 ml @ 28.75 mls/ hr Q8@0600,1400,2200 IV 04/18/17 06:00 04/25/17 05:59 04/19/17 14:29 28.75 MLS/HR Nortriptyline HCl (Pamelor Cap) 25 mg HS PO 04/18/17 21:00 05/18/17 08:59 04/18/17 21:54 25 MG Sertraline HCl (Zoloft Tab) 100 mg HS PO 04/18/17 21:00 05/18/17 20:59 04/18/17 21:54 100 MG Furosemide (Lasix Tab) 20 mg QAM PO 04/19/17 11:00 05/19/17 10:59 Potassium Chloride (Klor-Con M10) 10 meq DAILY PO 04/20/17 09:00 05/20/17 08:59 Tiotropium [place] (Spiriva Handihaler Inhaler) 1 puff QAM INH 04/20/17 09:00 05/20/17 08:59 Physical Exam Date Time Temp Pulse Resp B/P (MAP) Pulse Ox O2 Delivery O2 Flow Rate FiO2 04/19/17 15:08 36.4 99 24 97/61 (73) 90 Nasal Cannula 5.0 04/19/17 14:27 90 18 92 Nasal Cannula 5.0 04/19/17 12:00 Nasal Cannula 5.0 04/19/17 11:00 36.7 83 20 96/61 (73) 91 5.0 04/19/17 08:00 Nasal Cannula 4.0 04/19/17 07:25 36.8 72 20 97/51 (66) 90 3.0 04/19/17 07:25 75 18 91 Nasal Cannula 3.0 04/19/17 04:00 91 Nasal Cannula 3.0 04/19/17 03:45 37.0 77 22 109/69 (82) 90 Nasal Cannula 3.0 04/19/17 02:00 73 18 93 Nasal Cannula 3.0 04/19/17 00:00 91 Nasal Cannula 3.0 04/18/17 23:46 87 22 91 Nasal Cannula 3.0 04/18/17 23:33 37.0 82 22 95/62 (73) 87 Nasal Cannula 2.0 04/18/17 20:00 98 Nasal Cannula 3.0 04/18/17 19:57 36.8 93 20 101/66 (78) 95 Nasal Cannula 2.0 04/18/17 19:15 86 18 97 Nasal Cannula 2.0 General Appearance: no apparent distress ENT: hearing grossly normal Neck: supple, no JVD Respiratory: no respiratory distress, + decreased breath sounds (bilateral bases), + pertinent finding (respirations appear slightly labored despite patient's denial of dyspnea; has clubbing of fingernails) Cardiovascular: regular rate, rhythm, + normal peripheral pulses, + pertinent finding (right leg with +1-2 pitting edema) Abdomen: normal bowel sounds, non tender, soft Musculoskeletal: poor tone, pertinent finding (genrealized weakness and deformities d/t spina bifida) Neurologic/Psychiatric: alert, normal mood/affect, oriented x 3 Laboratory Results Last 24 Hours Test 04/18/17 16:20 04/18/17 20:21 04/19/17 06:26 04/19/17 06:52 Bedside Glucose 162 mg/dl 167 mg/dl 98 mg/dl White Blood Count 15.10 K/uL Red Blood Count 3.39 M/uL Hemoglobin 10.0 g/dL Hematocrit 31.7 % Mean Corpuscular Volume 93.5 fL Mean Corpuscular Hemoglobin 29.5 pg Mean Corpuscular Hemoglobin Concent 31.5 g/dl Platelet Count 257 K/uL Mean Platelet Volume 9.7 fL Neutrophils (%) (Auto) 68.6 % Lymphocytes (%) (Auto) 21.9 % Monocytes (%) (Auto) 6.0 % Eosinophils (%) (Auto) 3.1 % Basophils (%) (Auto) 0.1 % Neutrophils # (Auto) 10.35 K/uL Lymphocytes # (Auto) 3.31 K/uL Monocytes # (Auto) 0.90 K/uL Eosinophils # (Auto) 0.47 K/uL Basophils # (Auto) 0.02 K/uL RDW Standard Deviation 52.7 fL RDW Coefficient of Variation 15.3 % Immature Granulocyte % (Auto) 0.3 % Immature Granulocyte # (Auto) 0.05 K/uL Sodium Level 137 mmol/L Potassium Level 3.6 mmol/L Chloride Level 100 mmol/L Carbon Dioxide Level 32 mmol/L Anion Gap 5.0 mmol/L Blood Urea Nitrogen 17 mg/dl Creatinine 0.59 mg/dl Est Creatinine Clear Calc Drug Dose 85.0 ml/min Estimated GFR () 113.9 Estimated GFR (Non- 98.2 BUN/Creatinine Ratio 29.6 Random Glucose 84 mg/dl Calcium Level 8.3 mg/dl Phosphorus Level 2.7 mg/dl Magnesium Level 2.0 mg/dl Test 04/19/17 11:15 Bedside Glucose 137 mg/dl Assessment & Plan Problem list: Acute on chronic hypoxemia respiratory failure COPD exacerbation/Interstitial lung disease/pulmonary fibrosis- steroids and neb treatments. Pneumonia- question of aspiration- no aspiration seen on video swallow- on IV abx CHF exacerbation- on furosemide Hx of spina bifida Hx of CVA Anemia Goals of care (Z51.5) Palliative care recs: discussed with patient and her , Charlie Maurer. -Patient's goal is to get to [facility] for rehab with the intention of getting home with home health. -Patient still wants full treatment, confirmed she is a level 1 full resuscitation. -She does not feel she is "anywhere near" end-stage. I question the patient and her 's understanding of the progression of her illness. As I sat in room , she was asymptomatic with a pulse ox of 84-88% on nasal cannula and has severe clubbing of her fingernails, leading me to believe this disease has been progressing for quite some time. However, patient and said that it really has not been an issue as she, very fortunately, has never experienced symptoms and prior to this whole incident hadn't been in the hospital for 3 years. -Has a living will/advance directive. We do not have a copy, but stated that they know when patient is end-stage, they would want her to be comfortable. However, they could not recall specifically what medical directives were on it, and Charlie was telling a story of a family who was on hospice and he was not happy with the hospice service as "they didn't want to feed him or give him fluids." Again, I question their understanding of disease progression and the body's natural process of dying. Unfortunately, we didn't really have time to get into this conversation and I don't think it's an appropriate time. -From a symptom management standpoint, I have nothing to add as the patient is asymptomatic. No pain, SOB, N/V. -I'm uncertain of patient's rehab potential, but she has the will and that's her goal. This will certainly be an ongoing conversation with this nice patient and her . I would be more than happy to see them again on further admission. Than you for allowing me to participate in the care of this patient.
[2017-04-19] MEDS: SERTRALINE HCL 50 MG TAB PO SCH (20:34)
[2017-04-19] MEDS: FAMOTIDINE 20 MG TAB PO SCH (20:34)
[2017-04-19] MEDS: ROSUVASTATIN CALCIUM 20 MG TAB PO SCH (20:34)
[2017-04-19] MEDS: NORTRIPTYLINE HCL 25 MG CAP PO SCH (20:35)
[2017-04-20] VITALS (11 sets, daily range): BP systolic 91–130; BP diastolic 54–77; PULSE 73–94; TEMP 36.3–36.6; O2SAT 89–96
[2017-04-20] MEDS: IPRATROPIUM BROMIDE NEB SOLN 0.02% 2.5 ML VIAL INH SCH ×3 (01:41→19:29)
[2017-04-20] MEDS: LEVALBUTEROL 1.25MG/0.5ML NEB INH SCH ×3 (01:41→19:29)
[2017-04-20] MEDS: PIPERACILL/TAZOBAC IV 3.375 GM in DEXTROSE 5% 100ML IV SCH ×3 (05:22→21:52)
[2017-04-20 05:50] LABS: COMPLETE YES; EOS % 0.2 %; HEMATOCRIT 31.5 % (37-47); IG% 0.6 %; LYMPH % 15.4 %; LYMPH ABS # 1.64 K/uL (1.2-3.4); MEAN CELL VOLUME 93.5 fL (80-100); MEAN CORPUSCULAR HGB CONC 32.1 g/dl (32-36); MEAN PLATELET VOLUME 9.7 fL (7.4-10.4); MONO % 9.1 %; NEUT % 74.7 %; PLATELET COUNT 284 K/uL (130-400); RED BLOOD COUNT 3.37 M/uL (4.2-5.4); WHITE BLOOD COUNT 10.68 K/uL (4.8-10.8)
[2017-04-20 06:21] LABS: BUN/CREATININE RATIO 29.3 (10-20); CALCIUM 8.5 mg/dl (8.5-10.1); CREATININE 0.52 mg/dl (0.60-1.20); POTASSIUM 4.1 mmol/L (3.5-5.1)
[2017-04-20] MEDS: ACETAMINOPHEN 325 MG TAB PO PRN ×2 (08:12→19:07)
[2017-04-20] MEDS: ENOXAPARIN 30 MG/0.3 ML SYR SC SCH (08:13)
[2017-04-20] MEDS: ASPIRIN 81 MG ECTAB PO SCH (08:14)
[2017-04-20] MEDS: LACTOBACILLUS ACIDOPHILUS (FLORANEX) TAB PO SCH (08:14)
[2017-04-20] MEDS: METOPROLOL TARTRATE 25 MG TAB PO SCH ×2 (08:14→20:29)
[2017-04-20] MEDS: POTASSIUM CHLORIDE 10 MEQ TABCR PO SCH (08:15)
[2017-04-20] MEDS: FUROSEMIDE 20 MG TAB PO SCH (08:15)
[2017-04-20] MEDS: TIOTROPIUM BROMIDE 5 PUFF/90 MCG INH INH SCH (08:16)
--- NOTE | 2017-04-20 11:50 | Progress Note ---
Internal Med Progress Note Date of Service: Apr 20, 2017. Provider Documentation: SUBJECTIVE: The patient was seen and examined Was admitted with low saturation She denies to have any symptoms at rest Saturation was low 80s this AM-refused ABG Does not have any symptoms even when saturation is low 80s OBJECTIVE: Vital Signs-as noted below Exam: General-Minimal distress at rest No pain and or SOB Eyes-normal ENT-normal Neck-Supple Lungs-decreased breath sound bilaterally Minimal crackles at the bases Heart-Regular Abdomen-Benign,no masses,bowel sound present Extremities-No edema Neuro-AAOx3 Generally weak and lethargic Lab data as noted below. ASSESSMENT & PLAN: Acute on chronic hypoxemic respiratory failure Multifactorial : Chronic obstructive pulmonary disease/ILD exacerbation Healthcare associated pneumonia, Possible aspiration pneumonia (known aspiration risk as per swallow eval from recent confinement). Barium Swallow-negative for any aspiration Acute congestive heart failure. supplemental O2. Baseline ABG. Continue aspiration precautions. Cultures-negative . Has been on Zosyn,nebs RTC, prn; steroids. Pulmonary consult RE respiratory failure/COPD/ILD exacerbation. Patient known to Dr. Dave. Was given 125mg of Solumedrol and will go with slow tapering of steroid on discharge Will get CXR today Clinically stable Likely to discharge today Appreciate Palliative care consult-Not yet ready to Hospice /terminal care candidate Congestive Hearty Failure Was on IV Lasix Strict IOs, daily weights. CHF education Cardiology consult. RE CHF Appreciate Cardiology input Started on small dose of Lasix and K supplement No acute issue Hypertension, stable. Continue current medications Past tobacco abuse. History CVA as per records hx spina bifida. Anemia, subacute, Hemoglobin noted to be 10 at some point during recent confinement. DVT prophylaxis US legs-no DVT Lovenox subcu. Full code. Discussed with the Palliative care consulted Likely back to [facility] today Vital Signs: Date Time Temp Pulse Resp B/P (MAP) Pulse Ox O2 Delivery O2 Flow Rate FiO2 04/20/17 11:40 36.5 77 18 124/77 (93) 95 5.0 04/20/17 08:10 36.6 86 18 114/71 (85) 90 6.0 04/20/17 08:00 Nasal Cannula 5.0 04/20/17 07:36 76 18 93 Nasal Cannula 5.0 04/20/17 04:48 36.4 78 18 130/77 (94) 96 Mask 04/20/17 04:20 95 Nasal Cannula 6.0 04/20/17 00:00 94 Oxymask 7.0 04/19/17 23:55 36.6 81 22 102/68 (79) 95 6.0 04/19/17 20:15 95 Oxymask 7.0 04/19/17 20:03 36.6 86 20 112/69 (83) 90 Nasal Cannula 6.0 04/19/17 19:10 86 18 94 Nasal Cannula 5.0 04/19/17 16:01 60 20 114/73 (87) 96 Nasal Cannula 2.0 04/19/17 16:00 Nasal Cannula 4.0 04/19/17 15:08 36.4 99 24 97/61 (73) 90 Nasal Cannula 5.0 04/19/17 14:27 90 18 92 Nasal Cannula 5.0 04/19/17 12:00 Nasal Cannula 5.0 Lab Results: Results Past 24 Hours Test 04/19/17 16:12 04/19/17 20:05 04/20/17 05:14 Range/Units Bedside Glucose 196 132 70-90 mg/dl White Blood Count 10.68 4.8-10.8 K/uL Red Blood Count 3.37 4.2-5.4 M/uL Hemoglobin 10.1 12.0-16.0 g/dL Hematocrit 31.5 37-47 % Mean Corpuscular Volume 93.5 80-100 fL Mean Corpuscular Hemoglobin 30.0 25-34 pg Mean Corpuscular Hemoglobin Concent 32.1 32-36 g/dl Platelet Count 284 130-400 K/uL Mean Platelet Volume 9.7 7.4-10.4 fL Neutrophils (%) (Auto) 74.7 % Lymphocytes (%) (Auto) 15.4 % Monocytes (%) (Auto) 9.1 % Eosinophils (%) (Auto) 0.2 % Basophils (%) (Auto) 0.0 % Neutrophils # (Auto) 7.99 1.4-6.5 K/uL Lymphocytes # (Auto) 1.64 1.2-3.4 K/uL Monocytes # (Auto) 0.97 0.11-0.59 K/uL Eosinophils # (Auto) 0.02 0-0.5 K/uL Basophils # (Auto) 0.00 0-0.2 K/uL RDW Standard Deviation 52.3 36.4-46.3 fL RDW Coefficient of Variation 15.3 11.5-14.5 % Immature Granulocyte % (Auto) 0.6 % Immature Granulocyte # (Auto) 0.06 0.00-0.02 K/uL Sodium Level 136 136-145 mmol/L Potassium Level 4.1 3.5-5.1 mmol/L Chloride Level 102 98-107 mmol/L Carbon Dioxide Level 29 21-32 mmol/L Anion Gap 5.0 3-11 mmol/L Blood Urea Nitrogen 15 7-18 mg/dl Creatinine 0.52 0.60-1.20 mg/dl Est Creatinine Clear Calc Drug Dose 96.5 ml/min Estimated GFR () 118.7 Estimated GFR (Non- 102.4 BUN/Creatinine Ratio 29.3 10-20 Random Glucose 113 70-99 mg/dl Calcium Level 8.5 8.5-10.1 mg/dl
--- NOTE | 2017-04-20 11:58 | Pulmonology Progress Note ---
Pulmonary Progress Note Date of Service Apr 20, 2017. Attending Dr. Becerra Subjective Feeling improved today. Continued intermittent dry cough. Denies any fevers or chills. Denies chest pain. Appetite is in-tact. Objective 61 year old female admitted 04/17/17 from SNF with acute on chronic hypoxic respiratory failure. PMHx includes: ILD s/p recent admission (d//), COPD/pulmonary emphysema + O2, h/o right thalamic CVA, DJK, chronic anemia, Spina bifida, GERD, complicated UTI, h/o recurrent falls, and anxiety. Former tobacco: 25-30-pack year, quit 03/2016. Today: - SaO2 90-95% - 5-7LPM - WBC: 10.68, Hgb/Hct/Plts: 10.1/31.5/284 - Cr. 0.52 Physical Exam: Constitutional: WDWN female sitting in chair at bedside eating lunch. Eyes: pupils 3mm equal. Arcus seniles. Mouth: upper dentures. Moist mucous membranes. Mallampati I. No erythema or exudate. Respiratory: Non-labored respirations. O2 via NC. Fine Velcro rales crackles at bases to lower 1/3. No wheeze or rhonchi CV: RRR, no MRG. Warm peripherally - bilateral clubbing Abdomen: Soft. Active bowel sounds. GI: D Ela Paz catheter draining clear yellow fluid MSK/Extremities: Moving bilaterally. +1 peripheral edema LEs. Post surgical scar posterior chest with bony asymmetry. Neurologic: LE weakness. Alert. Cooperative. Assessment & Plan 61-yo female admitted with acute on chronic hypoxic respiratory failure. Stabilizing/improving although her underlying disease is very severe and overall prognosis is very poor. 1. Very slow steroid taper: decrease by 5mg Q 5 days 2. 2-step prior to discharge The patient's case has been reviewed and the plan agreed with. Data Medications: Current Inpatient Medications Medications (Trade) Dose Ordered Sig/Bishnu Route Start Time Stop Time Status Last Admin Dose Admin Ioversol (Optiray 320) 111 ml UD PRN IV 04/17/17 19:15 04/21/17 19:14 Enoxaparin Sodium (Lovenox Inj) 30 mg Q24H SC 04/18/17 09:00 05/18/17 08:59 04/20/17 08:13 30 MG Acetaminophen (Tylenol Tab) 650 mg Q4H PRN PO 04/17/17 22:15 05/17/17 22:14 04/20/17 08:12 650 MG Nitroglycerin (Nitrostat Tab) 0.4 mg UD PRN SL 04/17/17 22:15 05/17/17 22:14 Prednisone (PredniSONE TAB) 40 mg DAILY PO 04/18/17 09:00 04/23/17 08:59 04/20/17 08:14 40 MG Aspirin (Ecotrin Tab) 81 mg DAILY PO 04/18/17 09:00 05/18/17 08:59 04/20/17 08:14 81 MG Cyclobenzaprine HCl (Flexeril Tab) 5 mg TID PRN PO 04/17/17 22:15 05/17/17 22:14 Famotidine (Pepcid Tab) 20 mg QPM PO 04/18/17 21:00 05/18/17 20:59 04/19/17 20:34 20 MG Metoprolol Tartrate (Lopressor Tab) 25 mg BID PO 04/18/17 09:00 05/18/17 08:59 04/20/17 08:14 25 MG Rosuvastatin Calcium (Crestor Tab) 20 mg QPM PO 04/18/17 21:00 05/18/17 20:59 04/19/17 20:34 20 MG Lactobacillus Acidophilus (Floranex Tab) 1 tab DAILY PO 04/18/17 09:00 05/18/17 08:59 04/20/17 08:14 1 TAB Ipratropium [place] (Atrovent 0.02% 0.5MG/2.5ML Neb) 0.5 mg Q6R INH 04/18/17 03:00 05/18/17 02:59 04/20/17 07:31 0.5 MG Levalbuterol (Xopenex 1.25MG/ 0.5ML Neb) 1.25 mg Q6R INH 04/18/17 03:00 05/18/17 02:59 04/20/17 07:31 1.25 MG Ipratropium [place] (Atrovent 0.02% 0.5MG/2.5ML Neb) 0.5 mg Q4R PRN INH 04/17/17 23:00 05/17/17 22:59 Levalbuterol (Xopenex 1.25MG/ 0.5ML Neb) 1.25 mg Q4R PRN INH 04/17/17 23:00 05/17/17 22:59 Miscellaneous Information (Order Awaiting Action) 1 ea QS N/A 04/18/17 00:00 05/18/17 00:00 Miscellaneous Information (Order Awaiting Action) 1 ea QS N/A 04/18/17 00:00 05/18/17 00:00 Piperacillin Sod/ Tazobactam Sod (Consult) 1 ea UD PRN N/A 04/18/17 00:08 05/18/17 00:07 Piperacillin Sod/ Tazobactam Sod 3.375 gm/Dextrose 115 ml @ 28.75 mls/ hr Q8@0600,1400,2200 IV 04/18/17 06:00 04/25/17 05:59 04/20/17 05:22 28.75 MLS/HR Nortriptyline HCl (Pamelor Cap) 25 mg HS PO 04/18/17 21:00 05/18/17 08:59 04/19/17 20:35 25 MG Sertraline HCl (Zoloft Tab) 100 mg HS PO 04/18/17 21:00 05/18/17 20:59 04/19/17 20:34 100 MG Furosemide (Lasix Tab) 20 mg QAM PO 04/19/17 11:00 05/19/17 10:59 04/20/17 08:15 20 MG Potassium Chloride (Klor-Con M10) 10 meq DAILY PO 04/20/17 09:00 05/20/17 08:59 04/20/17 08:15 10 MEQ Tiotropium [place] (Spiriva Handihaler Inhaler) 1 puff QAM INH 04/20/17 09:00 05/20/17 08:59 04/20/17 08:16 1 PUFF Vital Signs: Date Time Temp Pulse Resp B/P (MAP) Pulse Ox O2 Delivery O2 Flow Rate FiO2 04/20/17 08:10 36.6 86 18 114/71 (85) 90 6.0 04/20/17 08:00 Nasal Cannula 5.0 04/20/17 07:36 76 18 93 Nasal Cannula 5.0 04/20/17 04:48 36.4 78 18 130/77 (94) 96 Mask 04/20/17 04:20 95 Nasal Cannula 6.0 04/20/17 00:00 94 Oxymask 7.0 04/19/17 23:55 36.6 81 22 102/68 (79) 95 6.0 04/19/17 20:15 95 Oxymask 7.0 04/19/17 20:03 36.6 86 20 112/69 (83) 90 Nasal Cannula 6.0 04/19/17 19:10 86 18 94 Nasal Cannula 5.0 04/19/17 16:01 60 20 114/73 (87) 96 Nasal Cannula 2.0 04/19/17 16:00 Nasal Cannula 4.0 04/19/17 15:08 36.4 99 24 97/61 (73) 90 Nasal Cannula 5.0 04/19/17 14:27 90 18 92 Nasal Cannula 5.0 04/19/17 12:00 Nasal Cannula 5.0 04/19/17 11:00 36.7 83 20 96/61 (73) 91 5.0 Laboratory Results: Last 24 Hours Test 04/19/17 11:15 04/19/17 16:12 04/19/17 20:05 04/20/17 05:14 Bedside Glucose 137 mg/dl 196 mg/dl 132 mg/dl White Blood Count 10.68 K/uL Red Blood Count 3.37 M/uL Hemoglobin 10.1 g/dL Hematocrit 31.5 % Mean Corpuscular Volume 93.5 fL Mean Corpuscular Hemoglobin 30.0 pg Mean Corpuscular Hemoglobin Concent 32.1 g/dl Platelet Count 284 K/uL Mean Platelet Volume 9.7 fL Neutrophils (%) (Auto) 74.7 % Lymphocytes (%) (Auto) 15.4 % Monocytes (%) (Auto) 9.1 % Eosinophils (%) (Auto) 0.2 % Basophils (%) (Auto) 0.0 % Neutrophils # (Auto) 7.99 K/uL Lymphocytes # (Auto) 1.64 K/uL Monocytes # (Auto) 0.97 K/uL Eosinophils # (Auto) 0.02 K/uL Basophils # (Auto) 0.00 K/uL RDW Standard Deviation 52.3 fL RDW Coefficient of Variation 15.3 % Immature Granulocyte % (Auto) 0.6 % Immature Granulocyte # (Auto) 0.06 K/uL Sodium Level 136 mmol/L Potassium Level 4.1 mmol/L Chloride Level 102 mmol/L Carbon Dioxide Level 29 mmol/L Anion Gap 5.0 mmol/L Blood Urea Nitrogen 15 mg/dl Creatinine 0.52 mg/dl Est Creatinine Clear Calc Drug Dose 96.5 ml/min Estimated GFR () 118.7 Estimated GFR (Non- 102.4 BUN/Creatinine Ratio 29.3 Random Glucose 113 mg/dl Calcium Level 8.5 mg/dl
--- NOTE | 2017-04-20 12:14 | Clinical Documentation Query ---
CLINICAL DOCUMENTATION QUERY 61 year old female who presents to the Emergency Room with complaints of persistent shortness of breath. CHF, aspiration pneumonia, ILD exacerbation, and COPD exacerbation have all been treated. In your clinical opinion is this patient being managed for: ( + ) Acute preserved EF right sided heart failure in setting of ILD treated with IV Lasix, IV solumedrol, and Nebs. ( ) Other explanation of clinical findings (Please Explain) ( ) Unable to determine (Please Define) ( ) Need to Discuss ( ) Not Agree The medical record reflects the following clinical findings, treatment, and risk factors. Clinical Indicators: Physical exam has shown diminished air movement, decreased breath sounds, dry rales/crackles. edema (Trace to 1+ edema. ), and clubbing. Cardiology consult has stated decompensated right heart failure secondary to her significant underlying pulmonary disease. Treatment: IV Lasix, IV solumedrol, Xopenex nebs, IV Zosyn, Risk Factors: Age, ILD, COPD, Please clarify and document your clinical opinion in the progress notes and discharge summary. Terms such as "probable", "suspected", "likely", "questionable", "possible", or "still to be ruled out" are acceptable. IF IN AGREEMENT, YOU MUST DOCUMENT ABOVE DIAGNOSTIC STATEMENT IN DAILY PROGRESS NOTES AND DISCHARGE SUMMARY. This document is not part of the patient's record. Thank You, Jose Miguel Galvez RN [phone]
--- NOTE | 2017-04-20 13:51 | DIAGNOSTIC IMAGING REPORT ---
CHEST ONE VIEW PORTABLE CLINICAL HISTORY: 61 years-old Female presenting with pneumonia. TECHNIQUE: Portable upright AP view of the chest was obtained. COMPARISON: 04/17/2017. FINDINGS: Cardiomediastinal silhouette remarkable for atherosclerosis of the aortic arch. Prominence of the rossy. Persistence of diffuse reticular lung markings with a mid to basilar predominance and increased density of the lungs. No large effusion or pneumothorax. Osseous structures and upper abdomen normal. IMPRESSION: 1. Stable prominent reticular lung markings and increased lung density, which could represent pulmonary edema or multifocal pneumonia likely superimposed on underlying emphysematous changes or chronic lung disease. 2. Bilateral hilar enlargement consistent with hilar lymphadenopathy better seen on CT from 03/27/2017. Electronically signed by: Toney Gan M.D. 04/20/2017 1:50 PM Dictated Date/Time: 04/20/2017 1:47 PM
--- NOTE | 2017-04-20 15:54 | CRITICAL CARE PROGRESS NOTE ---
DATE: 04/20/2017 DATE: 04/20/2017. The patient seen and examined. Chart, medications, telemetry reviewed. SUBJECTIVE: Breathing status and pulmonary status appears slightly improved today. O2 saturations have been greater. She denies any chest pain or worsening shortness of breath. Lower extremity edema has resolved. OBJECTIVE: VITAL SIGNS: Heart rate 74, blood pressure is 101/64, O2 saturations 93% on 5 liters nasal cannula. NECK: Thin. There is no jugular venous distention. No carotid bruits. LUNGS: Clear at the apices with fine crackles bibasilar. CARDIOVASCULAR EXAMINATION: Regular. There is no S3 gallop. ABDOMEN: Soft. EXTREMITIES: Free of edema today. IMPRESSION: A 61-year-old female with diffuse interstitial lung disease manifesting signs and symptoms of right heart failure with peripheral edema. On presentation, she is now responding to treatment of underlying lung disease with low dose diuretic usage. Would continue furosemide at current dosing at 20 mg a.m. with potassium 10 mEq per day. No other adjustments made from a cardiac standpoint. Will continue previously ordered metoprolol 25 twice per day. Will sign off at this point in time. Contact with any questions or concerns.
[2017-04-20] MEDS: NORTRIPTYLINE HCL 25 MG CAP PO SCH (20:27)
[2017-04-20] MEDS: ROSUVASTATIN CALCIUM 20 MG TAB PO SCH (20:28)
[2017-04-20] MEDS: SERTRALINE HCL 50 MG TAB PO SCH (20:28)
[2017-04-20] MEDS: FAMOTIDINE 20 MG TAB PO SCH (20:28)
[2017-04-20] MEDS ORDERED: ZOLPIDEM TARTRATE 5 MG TAB PO PRN (21:00)
[2017-04-21] VITALS (8 sets, daily range): BP systolic 94–137; BP diastolic 57–81; PULSE 76–98; TEMP 36.4–37.1; O2SAT 89–99
[2017-04-21] MEDS: LEVALBUTEROL 1.25MG/0.5ML NEB INH SCH ×3 (01:55→14:10)
[2017-04-21] MEDS: IPRATROPIUM BROMIDE NEB SOLN 0.02% 2.5 ML VIAL INH SCH ×3 (01:55→14:10)
[2017-04-21] MEDS: PIPERACILL/TAZOBAC IV 3.375 GM in DEXTROSE 5% 100ML IV SCH ×2 (05:13→14:21)
[2017-04-21 06:03] LABS: BASO % 0.1 %; BASO ABS # 0.01 K/uL (0-0.2); COMPLETE YES; EOS % 2.2 %; LYMPH % 25.5 %; LYMPH ABS # 3.19 K/uL (1.2-3.4); MEAN CELL VOLUME 93.8 fL (80-100); MEAN CORPUSCULAR HEMOGLOBIN 29.3 pg (25-34); MEAN CORPUSCULAR HGB CONC 31.3 g/dl (32-36); MEAN PLATELET VOLUME 9.1 fL (7.4-10.4); MONO % 8.3 %; NEUT % 62.9 %; PLATELET COUNT 260 K/uL (130-400); RED BLOOD COUNT 3.41 M/uL (4.2-5.4); WHITE BLOOD COUNT 12.52 K/uL (4.8-10.8)
[2017-04-21 06:36] LABS: BUN/CREATININE RATIO 34.4 (10-20); CALCIUM 8.3 mg/dl (8.5-10.1); CREATININE 0.61 mg/dl (0.60-1.20)
[2017-04-21] MEDS: TIOTROPIUM BROMIDE 5 PUFF/90 MCG INH INH SCH (08:00)
[2017-04-21] MEDS: ASPIRIN 81 MG ECTAB PO SCH (08:00)
[2017-04-21] MEDS: LACTOBACILLUS ACIDOPHILUS (FLORANEX) TAB PO SCH (08:00)
[2017-04-21] MEDS: METOPROLOL TARTRATE 25 MG TAB PO SCH (08:01)
[2017-04-21] MEDS: POTASSIUM CHLORIDE 10 MEQ TABCR PO SCH (08:01)
[2017-04-21] MEDS: FUROSEMIDE 20 MG TAB PO SCH (08:02)
[2017-04-21] MEDS: ENOXAPARIN 30 MG/0.3 ML SYR SC SCH (08:02)
--- NOTE | 2017-04-21 09:17 | Progress Note ---
Internal Med Progress Note Date of Service: Apr 21, 2017. Provider Documentation: SUBJECTIVE: The patient was seen and examined Was admitted with low saturation ,She denies to have any symptoms at rest Saturation was low 80s this AM-refused ABG Does not have any symptoms even when saturation is low 80s No acute events last night OBJECTIVE: Vital Signs-as noted below Exam: General-Minimal distress at rest No pain and or SOB Eyes-normal ENT-normal Neck-Supple Lungs-decreased breath sound bilaterally Minimal crackles at the bases Heart-Regular Abdomen-Benign,no masses,bowel sound present Extremities-No edema Neuro-AAOx3 Generally weak and lethargic No focal neuro deficit Lab data as noted below. ASSESSMENT & PLAN: Acute on chronic hypoxemic respiratory failure Multifactorial : Chronic obstructive pulmonary disease/ILD exacerbation Healthcare associated pneumonia, Possible aspiration pneumonia (known aspiration risk as per swallow eval from recent confinement). Barium Swallow-negative for any aspiration Acute congestive heart failure. supplemental O2. Baseline ABG. Continue aspiration precautions. Cultures-negative . Has been on Zosyn-will complete 5 days course,nebs RTC, prn; steroids. Pulmonary consult RE respiratory failure/COPD/ILD exacerbation. Patient known to Dr. Dave. Was given 125mg of Solumedrol and will go with slow tapering of steroid on discharge CXR on 04/18-Bibasilar Interstitial changes/Pulmonary edema and Hilar adenopathy Clinically stable Likely to discharge today Appreciate Palliative care consult-Not yet ready to Hospice /terminal care candidate Acute preserved EF right sided heart failure Was on IV Lasix Strict IOs, daily weights. CHF education Cardiology consult. RE CHF Appreciate Cardiology input Started on small dose of Lasix and K supplement No acute issue Continue Small dose of Lasix and Potassium on discharge Hypertension, stable. Continue current medications Past tobacco abuse. History CVA as per records hx spina bifida. No acute issue Anemia, subacute, Hemoglobin noted to be 10 at some point during recent confinement. DVT prophylaxis US legs-no DVT Lovenox subcu. Full code. Discussed with the Palliative care consulted Likely back to [facility] Vital Signs: Date Time Temp Pulse Resp B/P (MAP) Pulse Ox O2 Delivery O2 Flow Rate FiO2 04/21/17 08:00 37.1 89 18 94/57 (69) 98 Nasal Cannula 5.0 04/21/17 08:00 Nasal Cannula 5.0 04/21/17 07:30 76 18 99 Mask 10.0 04/21/17 04:00 Nasal Cannula 5.0 04/21/17 03:49 36.4 79 18 137/77 (97) 98 Nasal Cannula 04/21/17 01:55 76 18 89 Nasal Cannula 5.0 04/21/17 00:00 Nasal Cannula 5.0 04/20/17 23:36 36.4 73 18 124/74 (91) 93 Nasal Cannula 04/20/17 20:11 36.4 89 26 116/71 (86) 89 Nasal Cannula 5.0 04/20/17 20:00 Nasal Cannula 5.0 04/20/17 19:29 84 18 92 Nasal Cannula 5.0 04/20/17 16:00 Nasal Cannula 5.0 04/20/17 15:29 36.3 74 22 101/64 (76) 93 Nasal Cannula 5.0 04/20/17 12:00 Nasal Cannula 5.0 Lab Results: Results Past 24 Hours Test 04/20/17 16:23 04/20/17 20:13 04/21/17 05:54 Range/Units Bedside Glucose 129 193 70-90 mg/dl White Blood Count 12.52 4.8-10.8 K/uL Red Blood Count 3.41 4.2-5.4 M/uL Hemoglobin 10.0 12.0-16.0 g/dL Hematocrit 32.0 37-47 % Mean Corpuscular Volume 93.8 80-100 fL Mean Corpuscular Hemoglobin 29.3 25-34 pg Mean Corpuscular Hemoglobin Concent 31.3 32-36 g/dl Platelet Count 260 130-400 K/uL Mean Platelet Volume 9.1 7.4-10.4 fL Neutrophils (%) (Auto) 62.9 % Lymphocytes (%) (Auto) 25.5 % Monocytes (%) (Auto) 8.3 % Eosinophils (%) (Auto) 2.2 % Basophils (%) (Auto) 0.1 % Neutrophils # (Auto) 7.88 1.4-6.5 K/uL Lymphocytes # (Auto) 3.19 1.2-3.4 K/uL Monocytes # (Auto) 1.04 0.11-0.59 K/uL Eosinophils # (Auto) 0.28 0-0.5 K/uL Basophils # (Auto) 0.01 0-0.2 K/uL RDW Standard Deviation 53.6 36.4-46.3 fL RDW Coefficient of Variation 15.6 11.5-14.5 % Immature Granulocyte % (Auto) 1.0 % Immature Granulocyte # (Auto) 0.12 0.00-0.02 K/uL Sodium Level 135 136-145 mmol/L Potassium Level 4.0 3.5-5.1 mmol/L Chloride Level 100 98-107 mmol/L Carbon Dioxide Level 32 21-32 mmol/L Anion Gap 3.0 3-11 mmol/L Blood Urea Nitrogen 21 7-18 mg/dl Creatinine 0.61 0.60-1.20 mg/dl Est Creatinine Clear Calc Drug Dose 83.3 ml/min Estimated GFR () 112.6 Estimated GFR (Non- 97.2 BUN/Creatinine Ratio 34.4 10-20 Random Glucose 88 70-99 mg/dl Calcium Level 8.3 8.5-10.1 mg/dl
[2017-04-21] MEDS ORDERED: POTA10CA28 PO (15:08)
[2017-04-21] MEDS ORDERED: SPRIN INH (15:08)
[2017-04-21] MEDS ORDERED: AMOX1TAB43 PO (15:08)
[2017-04-21] MEDS ORDERED: LSX20 PO (15:08)
[2017-04-21] MEDS ORDERED: ZLF50 PO (15:08)
[2017-04-21] MEDS ORDERED: PRED10TA PO (15:17)
--- NOTE | 2017-04-21 15:17 | Discharge Instructions ---
Discharge Instructions Date of Service Apr 21, 2017. Admission Reason for Admission: Respiratory Failure, Giawc-Hx-Kvjgmez Discharge Discharge Diagnosis / Problem: Acute on Chronic Respiratory failure Discharge Goals Goal(s): Prevent Disease Progression Activity Recommendations Activity Level: Assistance Required Therapies: Physical Therapy, Occupational Therapy . Additional Information Patient informed of condition: Yes Advance Directives: No DNR: No Level of Care: Skilled Communicable Disease: No Prognosis: Stable Oxygen at (LPM): 3 liter/min via NC continuous.May need to increase PRN ot maintain >89% [place] Catheter: No Instructions / Follow-Up Instructions / Follow-Up Dr Conklin on 04/27/17 at 8:45 AM Current Hospital Diet Patient's current hospital diet: AHA Diet (Heart Healthy) Discharge Diet Recommended Diet: AHA Diet (Heart Healthy) Fluid Restriction: 1500 ml (6 cups) Pending Studies Studies pending at discharge: no Medical Emergencies . Who to Call and When: Medical Emergencies: If at any time you feel your situation is an emergency, please call 911 immediately. . Non-Emergent Contact Non-Emergency issues call your: Primary Care Provider . Past History Medical & Surgical History: (1) Respiratory failure, [id number] (2) Spina bifida (3) Essential hypertension (4) Dyslipidemia (5) Depression (6) Chronic obstructive lung disease (7) Pulmonary fibrosis (8) COPD exacerbation (9) History of CVA (cerebrovascular accident) (10) s/p hysterectomy (11) History of cataract extraction with lens replacement (12) S/P cardiac cath . "Provider Documentation" section prepared by Juan Currie. . Core Measure Problem Core Measures: None
[2017-04-21] MEDS ORDERED: AMOXICILLIN/CLAVULANATE TAB 875 MG TAB PO SCH (16:45)
--- NOTE | 2017-04-22 07:54 | Discharge Summary ---
Discharge Summary Date of Service Apr 22, 2017. Discharge Summary Admission Date: Apr 17, 2017 at 21:32 Discharge Date: Apr 21, 2017 Discharge Disposition: detention facility Principal Diagnosis: Acute on Chronic Respiratory failure Secondary Diagnoses/Problems: Please see H&P and Hospital Progress note Consultations: Cardiology and Pulmonology Medication Reconciliation New Medications: Prednisone Tab (Prednisone) 10 Mg Tab 10 MG PO UD for 30 Days, #60 TAB 40 po daily for 5 days, 35 mg daily for 5 days,30mg daily for 5 days,25mg daily for 5 days,20mg daily for 5 days,15mg daily for 5days and then 10 mg daily to continue Amoxicillin & Pot Clavulanate (Amoxicillin/Clavulanate P) 1 Tab Tab 875 MG PO BIDM for 3 Days, #6 TAB Furosemide (Furosemide) 20 Mg Tab 20 MG PO QAM for 30 Days, #30 TAB Potassium Chloride (Micro-K Ext Rel) 10 Meq Capcr 10 MEQ PO DAILY for 30 Days, #30 Sertraline HCl (Sertraline HCl) 50 Mg Tab 100 MG PO HS for 30 Days, #30 TAB Tiotropium [place] (Spiriva Handihaler) 5 Puff/90 Mcg Aerp 1 PUFF INH QAM, #1 Continued Medications: Etsckcphqhgpg-Lnzfpybglerdf-Fj (Isometheptene/Dichloralph 325-65-100 mg) 1 Cap Cap 1 CAP PO PRN UD Take 2 tablets at onset of headache then 1 every hour until headache resolves. No more than 5 tabs in 24 hours. Aclidinium [place] (Tudorza Pressair) 400 Mcg/Act Aer 1 PUFF INH BID Albuterol Sulfate (Proair Respiclick) 108 Mcg/Act Aer 2 PUFFS INH Q4H PRN for SOB/Wheezing Aspirin (Aspirin Ec) 81 Mg Tab 81 MG PO DAILY Budesonide/Formoterol Fumarate (Symbicort 80/4.5 Inhaler) 120 Puffs/ Aero 2 PUFFS INH BID Calcium/Vitamin D (Os-[place]man 500 Plus D) Tab 1 TAB PO BID, TAB Chlordiazepoxide/Clidinium (Librax 5MG/2.5MG) 1 Ea Cap 1 EA PO BID, CAP Cyclobenzaprine Hcl (Flexeril) 5 Mg Tab 5 MG PO TID PRN for Muscle Spasms, TAB PRN Diphenoxylate/Atropine (Lomotil) Tab 1 TAB PO BID PRN for Diarrhea, TAB Famotidine (Pepcid) 20 Mg Tab 20 MG PO QPM, TAB Home O2 Therapy (Oxygen) Gas 3 LITERS NA PRN Levalbuterol (Levalbuterol) 1.25 Mg/0.5 Ml Nebu 1.25 MG INH Q4H PRN for Shortness of Breath for 10 Days, #30 DOSE Loperamide Hcl (Imodium) 2 Mg Cap 2 MG PO UD, CAP Take 1 tab by mouth once. Then take 1 tablet after each loose BM. No more than 4 tablets per day for up to 2 days. Metoprolol Tartrate (Lopressor) 25 Mg Tab 25 MG PO BID, #60 Nortriptyline Hcl (Pamelor) 25 Mg Cap 25 MG PO QAM Probiotic Product (Probiotic) 1 Cap Cap 1 CAP PO DAILY Rosuvastatin Calcium (Crestor) 20 Mg Tab 20 MG PO QPM, #90 Saline (Saline Nasal [place]) 0.65 % Spr 2 SPRAYS NA BID, #1 Solifenacin Succinate (Vesicare) 5 Mg Tab 5 MG PO QAM [Alteril] () 0.5 CAP PO HS Discontinued Medications: Sertraline (Zoloft) 25 Mg Tab 25 MG PO QPM, TAB TAKE 25MG WITH 50MG FOR A TOTAL DOSE OF 75MG DAILY Sertraline HCl (Sertraline HCl) 50 Mg Tab 50 MG PO QPM TAKE WITH 25MG FOR TOTAL DOSE OF 75MG Admission Information HPI (per Admitting provider): DATE OF ADMISSION: 04/17/2017 PRIMARY CARE PHYSICIAN: Dr. Conklin. CHIEF COMPLAINT: Shortness of breath. HISTORY OF PRESENT ILLNESS: History obtained from patient and records. Medical history significant for chronic respiratory failure secondary to COPD/ ILD (pulmonary fibrosis) on home O2, COPD, past tobacco abuse, history of CVA, spina bifida. Recent confinement about 2 weeks ago for acute on chronic hypoxemic respiratory failure secondary to COPD exacerbation. Found to be at risk for aspiration by swallow eval during confinement. Swallow eval done, dental soft diet recommended, aspiration precautions. Recommendations as follows: Patient must be fully upright for meals and 30 minutes after meals. Stringent oral care. Alternate solids and liquids. Would benefit from continued speech at discharge for care over safe swallow strategies. Patient discharged to [facility] for rehab. Last day the patient noted increasing shortness of breath, cough, unable to expectorate, admits to coughing with meals if she is not careful. Patient thinks she is also filling up fluid. Patient denies chest pain. At the Emergency Room, initial O2 sat 60s on room air. MEDICAL HISTORY: As above. 2D echo from 2015 showed EF of 60-65%, normal LV systolic function, EF 60-65%, grade 1 diastolic dysfunction. SURGERIES: Cataract surgery, hysterectomy. HOME MEDICATIONS: Include budesonide, calcium plus D, Lomotil, Xopenex, loperamide, sertraline, home O2, albuterol, aspirin, metoprolol, nortriptyline , probiotic, Crestor, sertraline, Vesicare ALLERGIES: TO CORN OIL, LACTOSE AND MORPHINE. FAMILY HISTORY: Lung cancer. PERSONAL AND SOCIAL HISTORY: Past tobacco use. No chronic intake of alcoholic beverages. Disabled. REVIEW OF SYSTEMS: As per HPI, all other ROS negative. PHYSICAL EXAMINATION: VITAL SIGNS: Blood pressure was noted to be 147/82, pulse rate 98, respiratory rate 24, temperature 36.5, sats 64 on room air, later 94, mask. GENERAL: Noted to be in some respiratory distress, chronically ill. SKIN: Pallor. HEENT: Pale palpebral conjunctivae. Dry mucosa. O2 mask noted. NECK: Supple. CHEST: Expiratory wheezes. HEART: Regular rate and rhythm. ABDOMEN: Some distention, nontender. EXTREMITIES: Minimal LE edema, no tenderness. NEUROLOGIC: No gross focality LABORATORY DATA: Hemoglobin was noted to be 10.7, hematocrit 34.3, white cells 11.5, platelets 275. Sodium 134, potassium 5.1, chloride 99, CO2 of 29, BUN 15, creatinine 0.6, glucose 131. Troponin 0.09. BNP 3290. CTA: No evidence of pulmonary embolus, advanced COPD, interstitial lung disease, patchy consolidation nonspecific, pneumonia, aspiration pneumonitis, pulmonary edema, pulmonary hemorrhage. EKG as per my interpretation, rate 105, sinus tachycardia, no ischemia. ASSESSMENT: 1. Acute on chronic hypoxemic respiratory failure multifactorial : chronic obstructive pulmonary disease/ILD exacerbation secondary to healthcare associated pneumonia, possible aspiration pneumonia (known aspiration risk as per swallow eval from recent confinement). acute congestive heart failure. 3. Hypertension, stable. 4. Past tobacco abuse. 5. History CVA as per records 6. hx spina bifida. 7. anemia, subacute, hemoglobin noted to be 10 at some point during recent confinement. PLAN: PCU supplemental O2. Baseline ABG. Continue aspiration precautions. Cultures. Zosyn nebs RTC, prn; steroids. Pulmonary consult RE respiratory failure/COPD/ILD exacerbation. Patient known to Dr. Dave. Lasix strict IOs, daily weights. CHF education Cardiology consult. RE CHF DVT prophylaxis, Lovenox subcu. Full code. Total critical care time was 45 minutes. Hospital Course Acute on chronic hypoxemic respiratory failure Multifactorial : Chronic obstructive pulmonary disease/ILD exacerbation Healthcare associated pneumonia, Possible aspiration pneumonia (known aspiration risk as per swallow eval from recent confinement). Barium Swallow-negative for any aspiration Acute congestive heart failure. supplemental O2. Baseline ABG. Continue aspiration precautions. Cultures-negative . Has been on Zosyn-will complete 5 days course,nebs RTC, prn; steroids. Pulmonary consult RE respiratory failure/COPD/ILD exacerbation. Patient known to Dr. Dave. Was given 125mg of Solumedrol and will go with slow tapering of steroid on discharge CXR on 04/18-Bibasilar Interstitial changes/Pulmonary edema and Hilar adenopathy Clinically stable Likely to discharge today Appreciate Palliative care consult-Not yet ready to Hospice /terminal care candidate Acute preserved EF right sided heart failure Was on IV Lasix Strict IOs, daily weights. CHF education Cardiology consult. RE CHF Appreciate Cardiology input Started on small dose of Lasix and K supplement No acute issue Continue Small dose of Lasix and Potassium on discharge Hypertension, stable. Continue current medications Past tobacco abuse. History CVA as per records hx spina bifida. No acute issue Anemia, subacute, Hemoglobin noted to be 10 at some point during recent confinement. DVT prophylaxis US legs-no DVT Lovenox subcu. Full code. Discussed with the Palliative care consulted Likely back to [facility] Total time spent on discharge = 35 minutes This includes examination of the patient, discharge planning, medication reconciliation, and communication with other providers. Discharge Instructions Date of Service Apr 21, 2017. Admission Reason for Admission: Respiratory Failure, [id number] Discharge Discharge Diagnosis / Problem: Acute on Chronic Respiratory failure Discharge Goals Goal(s): Prevent Disease Progression Activity Recommendations Activity Level: Assistance Required Therapies: Physical Therapy, Occupational Therapy . Additional Information Patient informed of condition: Yes Advance Directives: No DNR: No Level of Care: Skilled Communicable Disease: No Prognosis: Stable Oxygen at (LPM): 3 liter/min via NC continuous.May need to increase PRN ot maintain >89% [place] Catheter: No Instructions / Follow-Up Instructions / Follow-Up Dr Conklin on 04/27/17 at 8:45 AM Current Hospital Diet Patient's current hospital diet: AHA Diet (Heart Healthy) Discharge Diet Recommended Diet: AHA Diet (Heart Healthy) Fluid Restriction: 1500 ml (6 cups) Pending Studies Studies pending at discharge: no Medical Emergencies . Who to Call and When: Medical Emergencies: If at any time you feel your situation is an emergency, please call 911 immediately. . Non-Emergent Contact Non-Emergency issues call your: Primary Care Provider . Past History Medical & Surgical History: (1) Respiratory failure, [id number]-ermydva (2) Spina bifida (3) Essential hypertension (4) Dyslipidemia (5) Depression (6) Chronic obstructive lung disease (7) Pulmonary fibrosis (8) COPD exacerbation (9) History of CVA (cerebrovascular accident) (10) s/p hysterectomy (11) History of cataract extraction with lens replacement (12) S/P cardiac cath . "Provider Documentation" section prepared by Juan Currie. . Core Measure Problem Core Measures: None <Electronically signed by Juan Currie M.D.> Additional Copies To Onel Conklin D.O.
== END 2017-04-21 17:06 | DRG 196 ==
LOC: EDBD 17:07 → C.EDB 17:10 → UNDOADMIN 21:32 → C.2T 21:32 → ENRESERV 21:35
PROVIDERS: ADMIT Internal Medicine; ATTEND Internal Medicine
DX: J84.10 Pulmonary fibrosis, unspecified (principal); J96.21 Acute and chronic respiratory failure with hypoxia; J18.9 Pneumonia, unspecified organism; I50.31 Acute diastolic (congestive) heart failure; J44.0 Chronic obstructive pulmonary disease with (acute) lower respiratory infection; Y95 Nosocomial condition; D64.9 Anemia, unspecified; I11.0 Hypertensive heart disease with heart failure; K59.00 Constipation, unspecified; I27.2 Other secondary pulmonary hypertension; G43.909 Migraine, unspecified, not intractable, without status migrainosus; F41.1 Generalized anxiety disorder; F32.9 Major depressive disorder, single episode, unspecified; E78.5 Hyperlipidemia, unspecified; Z87.440 Personal history of urinary (tract) infections; Z99.81 Dependence on supplemental oxygen; Z51.5 Encounter for palliative care; Z87.891 Personal history of nicotine dependence; Z86.14 Personal history of Methicillin resistant Staphylococcus aureus infection; Z86.73 Personal history of transient ischemic attack (TIA), and cerebral infarction without residual deficits; Z79.82 Long term (current) use of aspirin; Z79.899 Other long term (current) drug therapy; Z90.710 Acquired absence of both cervix and uterus; Z98.51 Tubal ligation status; Z98.49 Cataract extraction status, unspecified eye; Z88.5 Allergy status to narcotic agent; Z91.018 Allergy to other foods; Z91.011 Allergy to milk products; Z80.3 Family history of malignant neoplasm of breast; Z86.010 Personal history of colon polyps; Z82.49 Family history of ischemic heart disease and other diseases of the circulatory system; Z82.3 Family history of stroke

== ENCOUNTER 2017-05-20 17:34 | Emergency (ER) | payer OTHER ==
[~2017-05-20] VITALS: Ht 157.5 cm; Wt 64.6 kg
[~2017-05-20 17:34] MED LIST changes: +AMOX1TAB43 PO; +LPR25 PO; +LSX20 PO; +POTA10CA28 PO; -SERT25TA PO; +SPRIN INH; -ZLF/50 PO; +ZLF50 PO
[2017-05-20 17:43] VITALS: TEMP 36.5; Ht 157.5 cm; Wt 64.6 kg
--- NOTE | 2017-05-20 17:57 | EMERGENCY ROOM VISIT NOTE ---
History Report prepared by Sary: Lindsay Ford Under the Supervision of: Jamie ReyesO. First contact with patient: 17:46 Chief Complaint: OTHER COMPLAINT Stated Complaint: NEEDS OXYGEN History of Present Illness The patient is a 61 year old female who presents to the Emergency Room with complaints of shortness of breath. The patient has been seen in our facility multiple times. She was discharged to [facility] was discharged to home today. When she went home she was supposed to be on home oxygen. The patient went home and her oxygen concentrator was not working. She called the company 3 times but could not get the oxygen concentrator fix. She called her primary care physician and was instructed to come to the emergency department until we could fix the problem with her home oxygen. The patient complains of shortness of breath as well as short of breath with exertion but states is no worse than previous. She denies having any chest pain or fever. She does not have a cough. She states that she does have large tree swelling but is no worse usual. Source of History: patient Onset: SOURCING INTERN Position: chest (respiratory) Quality: other (shortness of breath) Timing: constant Modifying Factors (Worsening): exertion Associated Symptoms: No fevers, No cough, No chest pain Review of Systems See HPI for pertinent positives & negatives. A total of 10 systems reviewed and were otherwise negative. Past Medical & Surgical Medical Problems: (1) Anxiety (2) Chronic diarrhea (3) Chronic obstructive lung disease (4) Complicated UTI (urinary tract infection) (5) Depression (6) Dyslipidemia (7) Essential hypertension (8) H/O multiple pulmonary nodules (9) History of CVA (cerebrovascular accident) (10) Irritable colon (11) Migraine (12) Pulmonary fibrosis (13) Respiratory failure, [id number] (14) Spina bifida (15) Tobacco user (16) Urge incontinence Surgical Problems: (1) History of cataract extraction with lens replacement (2) S/P cardiac cath (3) s/p hysterectomy Family History Cancer BROTHER (lung CA) Social History Smoking Status: Former Smoker Alcohol Use: none Drug Use: none Marital Status: Housing Status: lives with family Occupation Status: employed, disabled Current/Historical Medications Scheduled Iplrtdtozxuwr-Raiwxcpgecltd-Ic (Isometheptene/Dichloralph 325-65-100 mg), 1 CAP PO PRN UD Amoxicillin & Pot Clavulanate (Amoxicillin/Clavulanate P), 875 MG PO BIDM Amoxicillin & Pot Clavulanate (Augmentin 875-125 mg), 875 MG PO BID Aspirin (Aspirin Ec), 81 MG PO DAILY Budesonide/Formoterol Fumarate (Symbicort 80/4.5 Inhaler), 2 PUFFS INH BID Calcium/Vitamin D (Os-[place] 500 Plus D), 1 TAB PO BID Chlordiazepoxide/Clidinium (Librax 5MG/2.5MG), 1 EA PO BID Famotidine (Pepcid), 20 MG PO QPM Furosemide (Furosemide), 20 MG PO QAM Home O2 Therapy (Oxygen), 3 LITERS NA PRN Loperamide Hcl (Imodium), 2 MG PO UD Metoprolol Tartrate (Lopressor), 25 MG PO BID Nortriptyline Hcl (Pamelor), 25 MG PO QAM Potassium Chloride (Micro-K Ext Rel), 10 MEQ PO DAILY Prednisone (Prednisone), 10 MG PO DAILY Probiotic Product (Probiotic), 1 CAP PO DAILY Rosuvastatin Calcium (Crestor), 20 MG PO QPM Saline (Saline Nasal [place]), 2 SPRAYS NA BID Sertraline HCl (Sertraline HCl), 100 MG PO HS Solifenacin Succinate (Vesicare), 5 MG PO QAM Tiotropium [place] (Spiriva Handihaler), 1 PUFF INH QAM [Alteril], 0.5 CAP PO HS Scheduled PRN Acetaminophen (Apap), 325 MG PO Q4 PRN for Pain or Fever Albuterol Sulfate (Proair Respiclick), 2 PUFFS INH Q4H PRN for SOB/Wheezing Cyclobenzaprine Hcl (Flexeril), 5 MG PO TID PRN for Muscle Spasms Diphenoxylate/Atropine (Lomotil), 1 TAB PO BID PRN for Diarrhea Levalbuterol (Levalbuterol), 1.25 MG INH Q4H PRN for Shortness of Breath Allergies Coded Allergies: [place] Oil (Verified Adverse Reaction, Mild, GI UPSET, 05/20/17) Lactose Intolerance (GI) (Verified Adverse Reaction, Mild, GI SYMPTOMS, ) Morphine (Verified Adverse Reaction, Mild, confusion, 05/20/17) Physical Exam Vital Signs Date Time Temp Pulse Resp B/P (MAP) Pulse Ox O2 Delivery O2 Flow Rate FiO2 05/20/17 23:20 89 21 139/90 98 05/20/17 22:03 76 18 112/76 98 Nasal Cannula 5.0 05/20/17 21:00 96 21 108/72 99 Nasal Cannula 5.0 05/20/17 20:35 96 21 108/72 100 Room Air 05/20/17 19:12 94 22 131/75 98 Nasal Cannula 5.0 05/20/17 17:43 36.5 102 22 105/79 92 Nasal Cannula 5.0 Physical Exam GENERAL: Patient is awake alert in no acute distress patient is resting comfortably and showing no signs of anxiety EYES: The conjunctivae are clear. The pupils are round and reactive. EARS, NOSE, MOUTH AND THROAT: The nose is without any evidence of any deformity. Mucous membranes are moist tongue is midline NECK: The neck is nontender and supple. RESPIRATORY: No tachypnea or conversational dyspnea was noted. Breath sounds were diminished at both bases. CARDIOVASCULAR: Regular rate and rhythm noted there no murmurs rubs or gallops normal S1 normal S2 GASTROINTESTINAL: The abdomen is soft. Bowel sounds are present in all quadrants. Abdomen is nontender MUSCULOSKELETAL/EXTREMITIES: There is no evidence of gross deformity full range of motion is noted in the hips and shoulders SKIN: There is no obvious evidence of any rash. Trace pedal edema was noted bilaterally. NEUROLOGIC: Patient is awake alert and oriented x3. Medical Decision & Procedures ER Provider Diagnostic Interpretation: Radiology results as stated below per my review and radiologist interpretation: LEFT KNEE 1 OR 2 VIEWS ROUTINE CLINICAL HISTORY: 61 years-old Female presenting with pain. TECHNIQUE: Frontal and crosstable lateral views of the left knee were obtained. COMPARISON: None. FINDINGS: No acute fracture or malalignment. Osteophytosis noted in the lateral compartment. Mild joint space loss in the medial compartment. No significant degenerative change evident at the patellofemoral compartment. No large knee joint effusion. IMPRESSION: Degenerative change at the medial and lateral compartments with greater joint space loss medially. No acute osseous injury. Electronically signed by: Toney Gan M.D. 05/20/2017 8:26 PM Dictated Date/Time: 05/20/2017 8:25 PM Laboratory Results Test 05/20/17 19:00 Urine Color YELLOW Urine Appearance TURBID (CLEAR) Urine pH 8.5 (4.5-7.5) Urine Specific [place] 1.020 (1.000-1.030) Urine Protein NEG (NEG) Urine Glucose (UA) NEG (NEG) Urine Ketones NEG (NEG) Urine Occult Blood NEG (NEG) Urine Nitrite POS (NEG) Urine Bilirubin NEG (NEG) Urine Urobilinogen NEG (NEG) Urine Leukocyte Esterase MODERATE (NEG) Urine WBC (Auto) >30 /hpf (0-5) Urine RBC (Auto) 5-10 /hpf (0-4) Urine Hyaline Casts (Auto) 1-5 /lpf (0-5) Urine Epithelial Cells (Auto) 5-10 /lpf (0-5) Urine Bacteria (Auto) 4+ (NEG) Laboratory results per my review. Medications Administered Medications (Trade) Dose Ordered Sig/Bishnu Route Start Time Stop Time Status Last Admin Dose Admin Amoxicillin/ Clavulanate Potassium (Augmentin Tab) 875 mg ONE ONCE PO 05/20/17 21:00 05/20/17 21:01 DC 05/20/17 21:31 875 MG ED Course 1746: The patient was evaluated in room C6. A complete history and physical examination were performed. 2056: I reassessed the patient at this time. She is feeling better and resting comfortably. I discussed the results and treatment plan with the patient. I answered all pertaining questions that she had. She expressed understanding and verbalized agreement. The patient will be discharged home. 2100: Augmentin tab 875 mg PO Medical Decision Prior records/ancillary studies reviewed. Triage Nursing notes reviewed. Additional history obtained from the family. Differential diagnosis: Etiologies such as infections, reactive airway disease, pneumonia, pneumothorax , COPD, CHF, cardiac ischemia, pulmonary embolism, musculoskeletal, gastrointestinal, as well as others were entertained. The patient is a 59-year-old female who presented to the emergency department for an evaluation of shortness of breath. The patient was recently in our facility and was discharged to a personal nursing home. She was recently discharged from the personal nursing home to home but home oxygen was not set up properly and she was sent to the emergency department by her primary care physician until the home oxygen situation could be straightened out. The patient also was found have urinary tract infection while she was in the emergency department. She also had knee pain which is chronic but she asked me to do an x-ray of her knee. I discussed the patient's laboratory and radiographic studies with her. Currently she is taking an antibiotic for a pulmonary infection. She was asked to continue this antibiotic for another 5 days I feel that this would cover the urinary tract infection that she currently has. She was encouraged to call her primary care physician morning to schedule follow-up appointment. She was also encouraged to continue using the oxygen as instructed but return to the emergency department immediately if symptoms change worsen or the need arises. Medication Reconcilliation Current Medication List: was personally reviewed by me Blood Pressure Screening Patient's blood pressure: Normal blood pressure Impression Primary Impression: UTI (urinary tract infection) Additional Impressions: Shortness of breath Hypoxia Scribe Attestation The scribe's documentation has been prepared under my direction and personally reviewed by me in its entirety. I confirm that the note above accurately reflects all work, treatment, procedures, and medical decision making performed by me. Departure Information Dispostion Home / Self-Care Prescriptions Amoxicillin & Pot Clavulanate (Augmentin 875-125 mg) 1 Tab Tab 875 MG PO BID, #10 TAB Prov: Ollie Valentin, DO 05/20/17 Referrals Onel Conklin D.O. (PCP) Forms HOME CARE DOCUMENTATION FORM, IMPORTANT VISIT INFORMATION, WORK / SCHOOL INSTRUCTIONS Patient Instructions [facility], Urinary Tract Infecs Women Additional Instructions Continue all medications as prescribed. Continue to use her oxygen as instructed. Call your family to schedule a follow-up appointment. Problem Qualifiers Primary Impression: UTI (urinary tract infection) Urinary tract infection type: site unspecified Hematuria presence: with hematuria Qualified Codes: N39.0 - Urinary tract infection, site not specified ; R31.9 - Hematuria, unspecified
[2017-05-20] MEDS ORDERED: ACET325T82 PO (18:16)
[2017-05-20] MEDS ORDERED: PRED10TA PO (18:17)
[2017-05-20 19:36] LABS: URINE APPEARANCE TURBID (CLEAR); URINE BILIRUBIN NEG (NEG); URINE COLOR YELLOW; URINE NITRITE POS (NEG); URINE PH 8.5 (4.5-7.5); UROBILINOGEN NEG (NEG)
[2017-05-20 19:37] LABS: MANUAL MICROSCOPIC REQUIRED? NO; REVIEW REQ? NO
[2017-05-20 19:43] LABS: SULFASALICYLIC ACID NEG (NEG)
--- NOTE | 2017-05-20 20:27 | DIAGNOSTIC IMAGING REPORT ---
LEFT KNEE 1 OR 2 VIEWS ROUTINE CLINICAL HISTORY: 61 years-old Female presenting with pain. TECHNIQUE: Frontal and crosstable lateral views of the left knee were obtained. COMPARISON: None. FINDINGS: No acute fracture or malalignment. Osteophytosis noted in the lateral compartment. Mild joint space loss in the medial compartment. No significant degenerative change evident at the patellofemoral compartment. No large knee joint effusion. IMPRESSION: Degenerative change at the medial and lateral compartments with greater joint space loss medially. No acute osseous injury. Electronically signed by: Toney Gan M.D. 05/20/2017 8:26 PM Dictated Date/Time: 05/20/2017 8:25 PM
[2017-05-20] MEDS ORDERED: AMOX875T PO (20:55)
[2017-05-20] MEDS ORDERED: AMOXICILLIN/CLAVULANATE TAB 875 MG TAB PO ONE (21:00)
[2017-05-20 23:20] VITALS: BP 139/90; PULSE 89; O2SAT 98
--- NOTE | 2017-05-22 15:26 | Pharmacy Progress Note ---
ED Pharmacist Culture FollowUp Date of Service: May 22, 2017. Patient was sent home with a prescription for Augmentin, which should cover the Klebsiella growing from the patient's urine culture, based on reported sensitivity to ampicillin/sulbactam.
== END 2017-05-20 23:20 | disposition home or self-care (01) ==
LOC: EDBD 17:34 → C.EDC 17:36
DX: R09.02 Hypoxemia (principal); R06.02 Shortness of breath; N39.0 Urinary tract infection, site not specified; E78.5 Hyperlipidemia, unspecified; I10 Essential (primary) hypertension; J44.9 Chronic obstructive pulmonary disease, unspecified; F32.9 Major depressive disorder, single episode, unspecified; F41.9 Anxiety disorder, unspecified; K58.9 Irritable bowel syndrome, unspecified; F17.200 Nicotine dependence, unspecified, uncomplicated; Z86.73 Personal history of transient ischemic attack (TIA), and cerebral infarction without residual deficits; Z90.710 Acquired absence of both cervix and uterus; Z98.49 Cataract extraction status, unspecified eye; Z87.891 Personal history of nicotine dependence; Z79.82 Long term (current) use of aspirin; Z79.899 Other long term (current) drug therapy; Z88.5 Allergy status to narcotic agent; Z91.011 Allergy to milk products; Z91.018 Allergy to other foods; Z80.9 Family history of malignant neoplasm, unspecified

== ENCOUNTER 2017-05-23 12:38 | Inpatient (IN) | payer OTHER ==
[~2017-05-23] VITALS: Ht 160 cm; Wt 65.0 kg
[~2017-05-23 12:38] MED LIST changes: +ACET325T82 PO; -ACLI1AER3 INH; +AMOX875T PO
[2017-05-23] MEDS ORDERED: METHYLPREDNISOLONE 125 MG VIAL IV STA (12:55)
[2017-05-23] MEDS ORDERED: MAGNESIUM SULFATE 1GM / D5W 1 GM BAG IV STA (12:55)
[2017-05-23] MEDS ORDERED: CEFEPIME IV 2000 MG in DEXTROSE 5% 100ML IV STA (12:59)
[2017-05-23] MEDS ORDERED: ALBUT/IPRATROP 3MG/0.5MG NEB 3 ML VIAL INH SCH (13:00)
[2017-05-23] MEDS ORDERED: LEVOFLOXACIN / D5W 750 MG IV STA (13:00)
[2017-05-23] MEDS ORDERED: VANCOMYCIN INJ 1,500 MG in SODIUM CHLORIDE 0.9% 500ML 500 ML IV STA (13:04)
[2017-05-23 13:25] VITALS: PULSE 98
--- NOTE | 2017-05-23 13:26 | DIAGNOSTIC IMAGING REPORT ---
CHEST ONE VIEW PORTABLE CLINICAL HISTORY: 61 years-old Female presenting with COPD, ILD, hypoxic 35%, crackles throughout. TECHNIQUE: Portable upright AP view of the chest was obtained. COMPARISON: 04/20/2017. FINDINGS: Atherosclerosis of aortic arch. Obscuration of the left heart border secondary to diffuse bilateral groundglass and reticular opacities involving both lungs with a mid to basilar predominance. These are stable to slightly increased from prior. No large effusion or pneumothorax. Osseous structures normal. Upper abdomen normal. IMPRESSION: 1. Stable to slight interval worsening of diffuse bilateral lung opacities, which may represent multifocal pneumonia, severe pulmonary edema, or diffuse alveolar damage superimposed on background emphysema or chronic lung disease. Electronically signed by: Toney Gan M.D. 05/23/2017 1:25 PM Dictated Date/Time: 05/23/2017 1:23 PM
[2017-05-23 13:36] LABS: ISTAT CREATININE 0.8 mg/dl (0.6-1.3); ISTAT IONIZED CALCIUM 1.08 mmol/l (1.12-1.32)
[2017-05-23 13:41] LABS: VEN BLD GAS O2 SATURATION 81.3 %; VEN BLOOD GAS BASE EXCESS 2.5 mEq/L
[2017-05-23 13:54] LABS: BASO % 0.1 %; BASO ABS # 0.01 K/uL (0-0.2); COMPLETE YES; HEMATOCRIT 42.3 % (37-47); LYMPH % 9.8 %; MEAN CORPUSCULAR HEMOGLOBIN 30.3 pg (25-34); MEAN CORPUSCULAR HGB CONC 32.6 g/dl (32-36); MEAN PLATELET VOLUME 10.3 fL (7.4-10.4); NEUT % 83.1 %; PLATELET COUNT 208 K/uL (130-400); RED BLOOD COUNT 4.55 M/uL (4.2-5.4); WHITE BLOOD COUNT 13.33 K/uL (4.8-10.8)
[2017-05-23] MEDS ORDERED: SODIUM CHLORIDE 0.9% 250ML 250 ML IV STA ×2 (13:58→15:15)
[2017-05-23 14:19] LABS: ALKALINE PHOSPHATASE 109 U/L (45-117); ALT/SGPT 23 U/L (12-78); BLOOD UREA NITROGEN 16 mg/dl (7-18); BUN/CREATININE RATIO 19.9 (10-20); CALCIUM 9.1 mg/dl (8.5-10.1); CARBON DIOXIDE 30 mmol/L (21-32); CHLORIDE 98 mmol/L (98-107); CREATININE 0.81 mg/dl (0.60-1.20); GLUCOSE 82 mg/dl (70-99); SODIUM 134 mmol/L (136-145)
[2017-05-23 14:44] LABS: POTASSIUM 4.1 mmol/L (3.5-5.1)
--- NOTE | 2017-05-23 14:48 | EMERGENCY ROOM VISIT NOTE ---
History Report prepared by Sary: Lindsay Ford Under the Supervision of: Dr. Wing Arreaga M.D. 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 The patient arrives ALS from [place]. She has a history of pneumonia in February. She is typically on 5L of O2 at all times. Today the patient was tachypneic. Staff checked her pulse ox at it was 57%. EMS was called and her pulse ox dropped to 35% en route to the ED. Positive shortness of breath, cough. Negative fevers, chest pain, nausea, vomiting, swelling in legs. She denies any personal history of blood clots or recent travel. states that when he woke her up this morning she had knocked her NC/O2 out sometime during the night. She had a lot of black/green/brown crust and mucous in her nose that he cleared out. She was able to breathe better after this. Dr. Dave is her recreation coordinator. 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 A total of ten systems were reviewed and were otherwise negative. Past Medical & Surgical Medical Problems: (1) Anxiety (2) Chronic diarrhea (3) Chronic obstructive lung disease (4) Complicated UTI (urinary tract infection) (5) Depression (6) Dyslipidemia (7) Essential hypertension (8) H/O multiple pulmonary nodules (9) History of CVA (cerebrovascular accident) (10) Irritable colon (11) Migraine (12) Pulmonary fibrosis (13) Respiratory failure, [id number] (14) Sepsis (15) Spina bifida (16) Tobacco user (17) Urge incontinence Surgical Problems: (1) History of cataract extraction with lens replacement (2) S/P cardiac cath (3) s/p hysterectomy Family History Cancer BROTHER (lung CA) Social History Smoking Status: Former Smoker Alcohol Use: none Drug Use: none Marital Status: Housing Status: lives with family Occupation Status: employed, disabled Current/Historical Medications Scheduled Aspirin (Aspirin Ec), 81 MG PO DAILY Budesonide/Formoterol Fumarate (Symbicort 80/4.5 Inhaler), 2 PUFFS INH BID Calcium/Vitamin D (Os-Harman 500 Plus D), 1 TAB PO BID Chlordiazepoxide/Clidinium (Librax 5MG/2.5MG), 1 EA PO BID Famotidine (Pepcid), 20 MG PO QPM Furosemide (Furosemide), 20 MG PO QAM Home O2 Therapy (Oxygen), 3 LITERS NA PRN Loperamide Hcl (Imodium), 2 MG PO UD Metoprolol Tartrate (Lopressor), 25 MG PO BID Nortriptyline Hcl (Pamelor), 25 MG PO QAM Potassium Chloride (Micro-K Ext Rel), 10 MEQ PO DAILY Prednisone (Prednisone), 10 MG PO DAILY Rosuvastatin Calcium (Crestor), 20 MG PO QPM Saline (Saline Nasal [place]), 2 SPRAYS NA BID Sertraline HCl (Sertraline HCl), 100 MG PO HS Solifenacin Succinate (Vesicare), 5 MG PO QAM Tiotropium Terrell (Spiriva Handihaler), 1 PUFF INH QAM [Alteril], 0.5 CAP PO HS Scheduled PRN Acetaminophen (Apap), 325 MG PO Q4 PRN for Pain or Fever Albuterol Sulfate (Proair Respiclick), 2 PUFFS INH Q4H PRN for SOB/Wheezing Diphenoxylate/Atropine (Lomotil), 1 TAB PO BID PRN for Diarrhea Levalbuterol (Levalbuterol), 1.25 MG INH Q4H PRN for Shortness of Breath Allergies Coded Allergies: [place] Oil (Verified Adverse Reaction, Mild, GI UPSET, 05/20/17) Lactose Intolerance (GI) (Verified Adverse Reaction, Mild, GI SYMPTOMS, ) Morphine (Verified Adverse Reaction, Mild, confusion, 05/20/17) Physical Exam Vital Signs Date Time Temp Pulse Resp B/P (MAP) Pulse Ox O2 Delivery O2 Flow Rate FiO2 05/23/17 17:56 95 High Flow Oxygen 60 05/23/17 16:52 96 05/23/17 15:44 99 22 102/67 92 Nasal Cannula 6.0 05/23/17 15:06 101 24 101/65 94 Nasal Cannula 6.0 05/23/17 14:44 101 30 105/66 89 Nasal Cannula 6.0 05/23/17 14:15 101 22 108/71 93 Nebulizer 05/23/17 13:49 102 26 116/87 95 Nebulizer 6.0 05/23/17 13:25 98 24 Non-Rebreather 13.0 05/23/17 13:18 103 05/23/17 12:57 35 Nasal Cannula 5.0 05/23/17 12:56 Non-Rebreather 15.0 05/23/17 12:45 35 Nasal Cannula 5.0 05/23/17 12:45 35 Nasal Cannula 5.0 05/23/17 12:45 37.3 98 33 116/80 35 Nasal Cannula 5.0 Physical Exam GENERAL: Awake, alert, ill-appearing and pale, NC in place, NAD HENT: Normocephalic, atraumatic. EYES: Normal conjunctiva. Sclera non-icteric. NECK: Supple. No nuchal rigidity. FROM. RESPIRATORY: Diffuse crackles throughout, no rhonchi or wheezing CARDIAC: Tachycardic rate and regular rhythm, no MRG ABDOMEN: Soft, NTND, BS+ MSK: No chest wall TTP, prior scar in the upper thoracic region likely consistent with prior spina bifida, 1+ pitting edema bilaterally NEURO: GCS 15, CN 2-12 intact, moves all 4s on command SKIN: No rash or jaundice noted. Medical Decision & Procedures ER Provider Diagnostic Interpretation: Radiology results as stated below per my review and radiologist interpretation: CHEST ONE VIEW PORTABLE CLINICAL HISTORY: 61 years-old Female presenting with COPD, ILD, hypoxic 35%, crackles throughout. TECHNIQUE: Portable upright AP view of the chest was obtained. COMPARISON: 04/20/2017. FINDINGS: Atherosclerosis of aortic arch. Obscuration of the left heart border secondary to diffuse bilateral groundglass and reticular opacities involving both lungs with a mid to basilar predominance. These are stable to slightly increased from prior. No large effusion or pneumothorax. Osseous structures normal. Upper abdomen normal. IMPRESSION: 1. Stable to slight interval worsening of diffuse bilateral lung opacities, which may represent multifocal pneumonia, severe pulmonary edema, or diffuse alveolar damage superimposed on background emphysema or chronic lung disease. Electronically signed by: Toney Gan M.D. 05/23/2017 1:25 PM Dictated Date/Time: 05/23/2017 1:23 PM Laboratory Results 05/23/17 13:20 Red Blood Count 4.55, Mean Corpuscular Volume 93.0, Mean Corpuscular Hemoglobin 30.3, Mean Corpuscular Hemoglobin Concent 32.6, Mean Platelet Volume 10.3, Neutrophils (%) (Auto) 83.1, Lymphocytes (%) (Auto) 9.8, Monocytes (%) (Auto) 4.0, Eosinophils (%) (Auto) 2.0, Basophils (%) (Auto) 0.1, Neutrophils # (Auto) 11.10, Lymphocytes # (Auto) 1.30, Monocytes # (Auto) 0.53, Eosinophils # (Auto) 0.26, Basophils # (Auto) 0.01 05/23/17 13:20 05/23/17 14:25 Test 05/23/17 13:19 05/23/17 13:20 05/23/17 13:23 05/23/17 14:25 Bedside Lactic Acid Venous 3.29 mmol/L (0.90-1.70) White Blood Count 13.33 K/uL (4.8-10.8) Red Blood Count 4.55 M/uL (4.2-5.4) Hemoglobin 13.8 g/dL (12.0-16.0) Hematocrit 42.3 % (37-47) Mean Corpuscular Volume 93.0 fL (80-100) Mean Corpuscular Hemoglobin 30.3 pg (25-34) Mean Corpuscular Hemoglobin Concent 32.6 g/dl (32-36) Platelet Count 208 K/uL (130-400) Mean Platelet Volume 10.3 fL (7.4-10.4) Neutrophils (%) (Auto) 83.1 % Lymphocytes (%) (Auto) 9.8 % Monocytes (%) (Auto) 4.0 % Eosinophils (%) (Auto) 2.0 % Basophils (%) (Auto) 0.1 % Neutrophils # (Auto) 11.10 K/uL (1.4-6.5) Lymphocytes # (Auto) 1.30 K/uL (1.2-3.4) Monocytes # (Auto) 0.53 K/uL (0.11-0.59) Eosinophils # (Auto) 0.26 K/uL (0-0.5) Basophils # (Auto) 0.01 K/uL (0-0.2) RDW Standard Deviation 55.0 fL (36.4-46.3) RDW Coefficient of Variation 16.3 % (11.5-14.5) Immature Granulocyte % (Auto) 1.0 % Immature Granulocyte # (Auto) 0.13 K/uL (0.00-0.02) Nucleated RBC Absolute Count (auto) 0.03 K/uL (0-0) Nucleated Red Blood Cells % 0.2 % Venous Blood pH 7.43 (7.36-7.41) Venous Blood Partial Pressure CO2 42 mmHg (38.0-50.0) Venous Blood Partial Pressure O2 48 mmHg Venous Blood HCO3 27 mmol/L Venous Blood Oxygen Saturation 81.3 % Venous Blood Base Excess 2.5 mEq/L Estimated GFR () 90.2 Estimated GFR (Non- 77.8 BUN/Creatinine Ratio 19.9 (10-20) Calcium Level 9.1 mg/dl (8.5-10.1) Total Bilirubin 0.7 mg/dl (0.2-1) Alanine Aminotransferase (ALT/SGPT) 23 U/L (12-78) Alkaline Phosphatase 109 U/L (45-117) Total Protein 7.8 gm/dl (6.4-8.2) Albumin 3.0 gm/dl (3.4-5.0) Lipase 98 U/L (73-393) Bedside Hemoglobin 15.0 g/dl (12.0-16.0) Bedside Hematocrit 44 % (37-47) Bedside Sodium 135 mEq/L (135-144) Bedside Potassium 5.4 mEq/L (3.3-5.0) Bedside Chloride 96 mEq/L (101-112) Bedside Total CO2 30 mEq/l (24-31) Anion Gap 15.0 mmol/L (16-25) Bedside Blood Urea Nitrogen 22 mg/dl (7-18) Bedside Creatinine 0.8 mg/dl (0.6-1.3) Bedside Glucose (other) 89 mg/dl (70-99) Bedside Ionized Calcium (Shadia) 1.08 mmol/l (1.12-1.32) Magnesium Level 2.2 mg/dl (1.8-2.4) Direct Bilirubin 0.1 mg/dl (0-0.2) Aspartate Amino Transf (AST/SGOT) 23 U/L (15-37) Troponin I 0.016 ng/ml (0-0.045) Date/Time Source Procedure Growth Status 05/23/17 14:10 Nasal MRSA DNA Surveillance Screen - Final Specimen Positive for MRSA by DNA Probe Complete Laboratory results reviewed by me. Medications Administered Medications (Trade) Dose Ordered Sig/Bishnu Route Start Time Stop Time Status Last Admin Dose Admin Methylprednisolone Sodium Succinate (Solu-Medrol IV) 125 mg NOW STAT IV 05/23/17 12:55 05/23/17 13:00 DC 05/23/17 13:53 125 MG Magnesium Sulfate (Magnesium Sulfate) 1 gm NOW STAT IV 05/23/17 12:55 05/23/17 13:00 DC 05/23/17 13:53 1 GM Cefepime HCl 2000 mg/Dextrose 112.5 ml @ 225 mls/hr NOW STAT IV 05/23/17 12:59 05/23/17 13:28 DC 05/23/17 13:44 225 MLS/HR Levofloxacin 150 ml @ 100 mls/hr NOW STAT IV 05/23/17 13:00 05/23/17 14:29 DC 05/23/17 13:53 100 MLS/HR Vancomycin HCl 1500 mg/Sodium Chloride 530 ml @ 200 mls/hr NOW STAT IV 05/23/17 13:04 05/23/17 15:42 DC 05/23/17 13:44 200 MLS/HR Sodium Chloride 250 ml @ 999 mls/hr Q16M STAT IV 05/23/17 13:58 05/23/17 14:13 DC 05/23/17 14:00 999 MLS/HR Sodium Chloride 250 ml @ 999 mls/hr Q16M STAT IV 05/23/17 15:15 05/23/17 15:30 DC 05/23/17 15:15 999 MLS/HR ECG Indication: SOB/dyspnea Rate (beats per minute): 96 Rhythm: normal sinus Findings: no acute ischemic change, other (normal intervals) ED Course 1245: The patient was initially placed in room B10 upon arrival, but moved to room B1. I evaluated the patient. A complete history and physical exam was performed. The patient was placed on a non-rebreather. 1255: Magnesium Sulfate 1 gm IV, Solu-Medrol 125 mg IV 1259: Cefepime HCl 2000 mg/Dextrose 112.5 ml @ 225 mls/hr IV 1300: Levofloxacin 150 ml @ 100 ml/shr IV, Duoneb 9 ml INH 1304: Vancomycin HCl 1500 mg/Sodium Chloride 530 ml @ 200 mls/hr IV 1358: NSS 250 ml @ 999 mls/hr IV 1436: I reassessed the patient at this time. She is feeling better and resting comfortably. I discussed the results and treatment plan with the patient and her . I answered all pertaining questions that they had. They expressed understanding and verbalized agreement. 1446: I spoke with Celina Esposito PA-C. We discussed the patients case. The patient will be evaluated by the [facility] for further management. 1515: NSS 250 ml @ 999 mls/hr IV Medical Decision Differential diagnosis: Etiologies such as infections, reactive airway disease, pneumonia, pneumothorax , COPD, CHF, cardiac ischemia, pulmonary embolism, musculoskeletal, gastrointestinal, as well as others were entertained. 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 Patient was seen and evaluated at the bedside as the patient was hypoxic to 35% on nasal cannula. Patient was subsequently put on a nonrebreather and her sats climbed to the low 90s. Patient did have crackles throughout on exam. Patient was told she may have some CHF. Patient denied any acute shortness of breath. Patient is currently wheelchair-bound. Patient has no prior history of DVT or PE. Patient does have significant history of interstitial lung disease as well as COPD. Patient had recently been admitted for prior acute on chronic hypoxic respiratory failure. Patient did have an echo that was completed at that time which did show that she had some increased right ventricular sided pressures. Patient was not on any additional pulmonary hypertension meds at home. Patient did have some productive sputum this morning per the patient's said patient was started on empiric antibiotics. Patient did have a mild leukocytosis in addition to an elevated lactate. Bedside ultrasound was attempted but views were difficult to obtain. IVC was noted to be fairly collapsible also additional fluids were given. I spoke with the hospitalist who agreed to see the patient. They counseled to pulmonary critical care and did have a discussion with the patient who this time like to be DNR/DNI's the patient was admitted to the medicine service but not to the ICU. Patient was initiated on high flow she did not tolerate the nonrebreather well secondary to claustrophobia. Patient was admitted. Medication Reconcilliation Current Medication List: was personally reviewed by me Blood Pressure Screening Patient's blood pressure: Low blood pressure Consults Time Called: 1443 Consulting Physician: Celina Esposito PA-C Returned Call: 1444 I spoke with Celina Esposito PA-C. We discussed the patients case. The patient will be evaluated by the [facility] for further management. Impression Primary Impression: Acute and chronic respiratory failure ([id number]) Additional Impressions: Lactic acidosis Dehydration Interstitial lung disease Critical Care I have personally spent greater than 50 minutes of critical care time in the direct management of this patient. This includes bedside care, interpretation of diagnostic studies, and testing, discussion with consultants, patient, and family members, and other required patient management activities. This 50 minutes is in excess of all separately billable procedures. Scribe Attestation The scribe's documentation has been prepared under my direction and personally reviewed by me in its entirety. I confirm that the note above accurately reflects all work, treatment, procedures, and medical decision making performed by me. Departure Information Dispostion Being Evaluated By Hospitalist Referrals Onel Conklin D.O. (PCP) Patient Instructions My [facility] Problem Qualifiers Primary Impression: Acute and chronic respiratory failure ([id number]) Respiratory failure complication: hypoxia Qualified Codes: J96.21 - Acute and chronic respiratory failure with hypoxia
[2017-05-23 14:49] LABS: MAGNESIUM 2.2 mg/dl (1.8-2.4)
--- NOTE | 2017-05-23 16:48 | History and Physical ---
History & Physical Date & Time of Service: May 23, 2017 at 16:41 Chief Complaint: Difficulty Breathing Primary Care Physician: Onel Conklin D.O. History of Present Illness Source: patient, family This is a 61yo female with a PMH of chronic respiratory failure 2/2 COPD, pulmonary fibrosis (on home O2), R sided HF, HTN who presents in acute respiratory failure after home health nurse found her to by hypoxic at 57%. Patient was admitted in March for [id number] RF, PNA and acutely decompensated R-sided HF. Was sent to [facility] for rehab and remained there until Monday. Since coming home, patient endorses dyspnea with any type of exertion and at rest. Has been ambulating by wheelchair only ( baseline prior to March admission was with cane) and has been saturating around 88% on 5L NC O2. Last night, patient accidently removed NC and awoke with brown/ black/green mucous crusting in nostrils. Breathing improved once helped to remove crusting and re-placed NC. This morning, patient was evaluated by a home health RN and was found to be hypoxic to 57%. While en route to ED via EMS , pulse ox reportedly dropped to 35%. Was placed on a rebreather mask and given neb treatments. In ED, O2 sat improved to 80-85% on 7L NC. Endorses chills, tenderness to frontal sinuses, drainage from nose, productive cough, dyspnea at rest. Denies fever, headache, CP, orthopnea, nausea/vomiting, urinary symptoms, LE swelling. Patient states that she has been compliant with all medications since coming home from [facility]. Has not been limiting fluid or salt intake. Follows with Dr. Dave for pulmonology. Past Medical/Surgical History Medical Problems: (1) Anxiety Status: Chronic (2) Chronic diarrhea Status: Chronic (3) Chronic obstructive lung disease Status: Chronic (4) Depression Status: Chronic (5) Dyslipidemia Status: Chronic (6) Essential hypertension Status: Chronic (7) H/O multiple pulmonary nodules Status: Chronic (8) History of CVA (cerebrovascular accident) Status: Chronic (9) Irritable colon Status: Chronic (10) Migraine Status: Chronic (11) Pulmonary fibrosis Status: Chronic (12) Spina bifida Permanent Comment: s/p repair Status: Chronic (13) Tobacco user Status: Chronic (14) Urge incontinence Status: Chronic Surgical Problems: (1) History of cataract extraction with lens replacement Permanent Comment: 2012 Status: Resolved (2) S/P cardiac cath Permanent Comment: 1999- minor early atherosclerotic changes, no obstruction Status: Chronic (3) s/p hysterectomy Permanent Comment: 1991 Status: Resolved Family History Cancer BROTHER (lung CA) Social History Smoking Status: Former Smoker Drug Use: none Marital Status: Housing status: lives with family Occupational Status: employed, disabled Immunizations History of Influenza Vaccine: Yes Influenza Vaccine Date: Jul 12, 2012 History of Tetanus Vaccine?: Unknown History of Pneumococcal: Unknown Pneumococcal Date: February 04, 2008 History of Hepatitis B Vaccine: No Multi-Drug Resistant Organisms History of MDRO: Yes Type of MDRO: MRSA Allergies Coded Allergies: [place] Oil (Verified Adverse Reaction, Mild, GI UPSET, 05/20/17) Lactose Intolerance (GI) (Verified Adverse Reaction, Mild, GI SYMPTOMS, ) Morphine (Verified Adverse Reaction, Mild, confusion, 05/20/17) Home Medications Scheduled Aspirin (Aspirin Ec), 81 MG PO DAILY Budesonide/Formoterol Fumarate (Symbicort 80/4.5 Inhaler), 2 PUFFS INH BID Calcium/Vitamin D (Os-Harman 500 Plus D), 1 TAB PO BID Chlordiazepoxide/Clidinium (Librax 5MG/2.5MG), 1 EA PO BID Famotidine (Pepcid), 20 MG PO QPM Furosemide (Furosemide), 20 MG PO QAM Home O2 Therapy (Oxygen), 3 LITERS NA PRN Loperamide Hcl (Imodium), 2 MG PO UD Metoprolol Tartrate (Lopressor), 25 MG PO BID Nortriptyline Hcl (Pamelor), 25 MG PO QAM Potassium Chloride (Micro-K Ext Rel), 10 MEQ PO DAILY Prednisone (Prednisone), 10 MG PO DAILY Rosuvastatin Calcium (Crestor), 20 MG PO QPM Saline (Saline Nasal [place]), 2 SPRAYS NA BID Sertraline HCl (Sertraline HCl), 100 MG PO HS Solifenacin Succinate (Vesicare), 5 MG PO QAM Tiotropium [place] (Spiriva Handihaler), 1 PUFF INH QAM [Alteril], 0.5 CAP PO HS Scheduled PRN Acetaminophen (Apap), 325 MG PO Q4 PRN for Pain or Fever Albuterol Sulfate (Proair Respiclick), 2 PUFFS INH Q4H PRN for SOB/Wheezing Diphenoxylate/Atropine (Lomotil), 1 TAB PO BID PRN for Diarrhea Levalbuterol (Levalbuterol), 1.25 MG INH Q4H PRN for Shortness of Breath Review of Systems Ten systems reviewed and negative except as noted in the HPI. Physical Exam Vital Signs Date Time Temp Pulse Resp B/P (MAP) Pulse Ox O2 Delivery O2 Flow Rate FiO2 05/23/17 15:44 99 22 102/67 92 Nasal Cannula 6.0 05/23/17 15:06 101 24 101/65 94 Nasal Cannula 6.0 05/23/17 14:44 101 30 105/66 89 Nasal Cannula 6.0 05/23/17 14:15 101 22 108/71 93 Nebulizer 05/23/17 13:49 102 26 116/87 95 Nebulizer 6.0 05/23/17 13:25 98 24 Non-Rebreather 13.0 05/23/17 13:18 103 05/23/17 12:57 35 Nasal Cannula 5.0 05/23/17 12:56 Non-Rebreather 15.0 05/23/17 12:45 35 Nasal Cannula 5.0 05/23/17 12:45 35 Nasal Cannula 5.0 05/23/17 12:45 37.3 98 33 116/80 35 Nasal Cannula 5.0 General Appearance: + moderate distress (Patient with some respiratory distress , accessory muscle use. Chronically ill appearing. ) Head: normocephalic, atraumatic Eyes: normal inspection, sclerae normal ENT: + nasal drainage (Nares with clear/yellow drainage and dried blood), + pertinent finding (Tenderness on palpation of frontal sinuses) Neck: supple, no adenopathy, no JVD Respiratory/Chest: chest non-tender, + respiratory distress, + accessory muscle use, + crackles (Fine crackles diffusely, more at bilateral bases) Cardiovascular: no murmur, + tachycardia Abdomen/GI: normal bowel sounds, non tender, soft, no organomegaly Back: normal inspection Extremities/Musculoskelatal: no calf tenderness, no pedal edema, + swelling (1 + pitting LE edema bilaterally (chronic) ), + pertinent finding (Clubbing of LE digits ) Neurologic/Psych: no motor/sensory deficits, alert, normal mood/affect, oriented x 3 Skin: normal color, warm/dry, no rash Diagnostics Laboratory Results Results Past 24 Hours Test 05/23/17 13:19 05/23/17 13:20 05/23/17 13:23 05/23/17 14:25 Range/Units Bedside Lactic Acid Venous 3.29 0.90-1.70 mmol/L White Blood Count 13.33 4.8-10.8 K/uL Red Blood Count 4.55 4.2-5.4 M/uL Hemoglobin 13.8 12.0-16.0 g/dL Hematocrit 42.3 37-47 % Mean Corpuscular Volume 93.0 80-100 fL Mean Corpuscular Hemoglobin 30.3 25-34 pg Mean Corpuscular Hemoglobin Concent 32.6 32-36 g/dl Platelet Count 208 130-400 K/uL Mean Platelet Volume 10.3 7.4-10.4 fL Neutrophils (%) (Auto) 83.1 % Lymphocytes (%) (Auto) 9.8 % Monocytes (%) (Auto) 4.0 % Eosinophils (%) (Auto) 2.0 % Basophils (%) (Auto) 0.1 % Neutrophils # (Auto) 11.10 1.4-6.5 K/uL Lymphocytes # (Auto) 1.30 1.2-3.4 K/uL Monocytes # (Auto) 0.53 0.11-0.59 K/uL Eosinophils # (Auto) 0.26 0-0.5 K/uL Basophils # (Auto) 0.01 0-0.2 K/uL RDW Standard Deviation 55.0 36.4-46.3 fL RDW Coefficient of Variation 16.3 11.5-14.5 % Immature Granulocyte % (Auto) 1.0 % Immature Granulocyte # (Auto) 0.13 0.00-0.02 K/uL Nucleated RBC Absolute Count (auto) 0.03 0-0 K/uL Nucleated Red Blood Cells % 0.2 % Venous Blood pH 7.43 7.36-7.41 Venous Blood Partial Pressure CO2 42 38.0-50.0 mmHg Venous Blood Partial Pressure O2 48 mmHg Venous Blood HCO3 27 mmol/L Venous Blood Oxygen Saturation 81.3 % Venous Blood Base Excess 2.5 mEq/L Sodium Level 134 136-145 mmol/L Potassium Level 4.1 3.5-5.1 mmol/L Chloride Level 98 98-107 mmol/L Carbon Dioxide Level 30 21-32 mmol/L Anion Gap 6.0 15.0 16-25 mmol/L Blood Urea Nitrogen 16 7-18 mg/dl Creatinine 0.81 0.60-1.20 mg/dl Estimated GFR () 90.2 Estimated GFR (Non- 77.8 BUN/Creatinine Ratio 19.9 10-20 Random Glucose 82 70-99 mg/dl Calcium Level 9.1 8.5-10.1 mg/dl Magnesium Level 2.2 1.8-2.4 mg/dl Total Bilirubin 0.7 0.2-1 mg/dl Direct Bilirubin 0.1 0-0.2 mg/dl Aspartate Amino Transf (AST/SGOT) 23 15-37 U/L Alanine Aminotransferase (ALT/SGPT) 23 12-78 U/L Alkaline Phosphatase 109 45-117 U/L Total Protein 7.8 6.4-8.2 gm/dl Albumin 3.0 3.4-5.0 gm/dl Lipase 98 73-393 U/L Bedside Hemoglobin 15.0 12.0-16.0 g/dl Bedside Hematocrit 44 37-47 % Bedside Sodium 135 135-144 mEq/L Bedside Potassium 5.4 3.3-5.0 mEq/L Bedside Chloride 96 101-112 mEq/L Bedside Total CO2 30 24-31 mEq/l Bedside Blood Urea Nitrogen 22 7-18 mg/dl Bedside Creatinine 0.8 0.6-1.3 mg/dl Bedside Glucose (other) 89 70-99 mg/dl Bedside Ionized Calcium (Shadia) 1.08 1.12-1.32 mmol/l Troponin I 0.016 0-0.045 ng/ml Microbiology Results 05/23/17 Blood Culture, Received Pending 05/23/17 Blood Culture, Received Pending 05/23/17 MRSA DNA Surveillance Screen - Final, Complete Specimen Positive for MRSA by DNA Probe Diagnostic Radiology CXR: IMPRESSION: 1. Stable to slight interval worsening of diffuse bilateral lung opacities, which may represent multifocal pneumonia, severe pulmonary edema, or diffuse alveolar damage superimposed on background emphysema or chronic lung disease. Normal EKG Impression Assessment and Plan This is a 61yo female with a PMH of chronic respiratory failure 2/2 COPD, pulmonary fibrosis (on home O2), R sided HF, HTN who presents in acute respiratory failure after home health nurse found her to be hypoxic at 57%. Acute on chronic hypoxic respiratory failure: -Baseline of 88% on chronic O2 therapy at home (5L NC) -Found to be hypoxic at 57% prior to arrival in ED -Switched from NC to non-rebreather mask and saturation increased to 90s -Multifactorial RF 2/2 end stage pulmonary disease (COPD, pulmonary fibrosis), possible PNA and R-sided HF -Pulm with the following recommendations: -Keep SaO2 btw 88-92% -Placed on high flow nasal cannula with humidification, titrate as tolerated -Chest PT, Mucomyst 3 ML twice a day, flutter valve -Send pro-calcitonin level, in the meantime continue with Zosyn 3.375g and vanc to cover for empirically for PNA -Atrovent/Xopenex nebulizers Q 6H -Solu-Medrol 40 mg IV Q8H -Send sputum cultures -Address goals of care with patient and family Sepsis 2/2 PNA, UTI: -Patient meets SIRs criteria with HR of 101, tachypneic at 25, leukocytosis of 13 -Lactate of 3.2. Will recheck. -Both lung and urine as potential sources of infection: -CXR with slight interval worsening of bilateral lung opacities -UA with +nitrites, leuk esterase -Started on vanc, cefepime and Levaquin for broad spectrum coverage in the ED -Blood cultures pending -Careful resuscitation of fluids due to R sided HF Acute on chronic R-sided Heart Failure: -2/2 underlying pulmonary disease -Echo (04/10) with preserved EF: 65-70% but elevated R ventricular systolic pressure -CXR with pulmonary edema -Fine crackles on exam -IV Lasix and K started. Adjust as necessary -Strict I&Os, daily weights, low Na diet HTN: -Stable -Continue Lasix, metoprolol DVT Ppx: Lovenox Code status: FULL PCP: Katerin Dispo: SW consulted I have seen and examined the patient and agree with the assessment and plan as stated above. Initially, pt was oxygenating around 80% especially with conversing while on 7L NC, and ICU was asked to evaluate. They switched her to NRB and her saturation improved so she was deemed appropriate for med tele. Appreciate pulmonology recs. Patient will need replacement into rehab. PT/OT re-evaluations ordered again. is upset regarding recent discharge from rehab and believes this was premature in contrast to what the insurance company was saying. On my evaluation she appears winded with generalized weakness somewhat from her underlying spina bifida. She has fine crackles throughout her lungs and there is good airflow on exam. On my discussion with she and her she wished to be a full code so long as her prognosis was favorable that she would quickly come off life support. Her restated that to me as what she meant. Then, Dr. Nj got a different answer from them on the code status and Dr. De La Paz understood her to be full code. Based on my conversation with her, she is a full code. Further discussion is warranted. Johnson, DO Level of Care Telemetry Resuscitation Status FULL RESUSCITATION VTE Prophylaxis VTE Risk Assessment Done? Y/N: Yes Risk Level: Moderate Given or contraindicated: Enoxaparin (Lovenox)SQ Social Service Consult Receiving Home Health
[2017-05-23] MEDS ORDERED: POLYETHYLENE (MIRALAX) 17 GM PACK PO PRN (17:45)
[2017-05-23] MEDS ORDERED: CONSULT PHARMACY STA (17:56)
--- NOTE | 2017-05-23 18:06 | Pulmonary Consultation ---
History General Date of Service: May 23, 2017. Stated Complaint: Difficulty Breathing HPI The patient is a 61 year old female who presents to [facility] with complaints of Difficulty Breathing. The patient's primary care provider is Onel Conklin D.O.. Ms. Maurer is 61-year-old female well-known to the pulmonary service with past medical history of end-stage lung disease most likely secondary to a combination of COPD and pulmonary fibrosis who has chronic respiratory insufficiency on long-term oxygen therapy of 5 L. She was recently admitted in February for pneumonia and also had a recent admission in March acute on chronic respiratory insufficiency. She was recently discharged to [facility] for rehabilitation. Today she was noted to be hypoxic with a pulse oximetry reading of 57% associated with tachypnea. EMS was called and en route to hospital her pulse oximetry dropped to 35%. She denies any fevers, chills, chest pain, increasing shortness of breath and dyspnea, cough or productive sputum or hemoptysis. She has chronic leg swelling and clubbing of the lower extremities. She denies any hemoptysis. She states she is unable to ambulate that well since prior admission. Patient's is at bedside and states that he noted some thick dried mucus in right nostril that he removed this morning and was associated with some bleeding. He says sometimes her nasal cannula gets dislodged and she desaturates easily. Vital signs upon arrival to ER should her temperature 37.3, pulse 98 respiratory rate of 33 blood pressure 116/80 with pulse oximetry of 35% on 5 L nasal cannula. She was placed on nonrebreather mask of 15 L and pulse oximetry increased to 95%. Laboratory data was significant for a chemistry with a sodium of 134, potassium of 5.4 chloride 98, carbon dioxide of 30, BUN 16, creatinine of 0.81, troponin 0.016 and albumin of 3. Lactate was 3.29. Hematology labs were significant for white blood cell count of 13.3, hemoglobin 13.8, platelet count of 208. Blood cultures were drawn and are pending. Chest x-ray shows diffuse bilateral ground glass and reticular opacities involving the bilateral lungs mostly in the mid basilar region, slightly increased from previous x-ray in March 2017. She was given 1 L normal saline 2 , vancomycin 1500 mg IV 1 dose, cefepime 2 g IV 1 dose and Levaquin 150 mL 1 dose, 125 mg of Solu-Medrol, mag sulfate 1 g and DuoNeb 9 mL inhaler 1 dose. Pulmonary was consulted for acute on chronic hypoxic respiratory failure. At the time of my evaluation patient was on 7 L nasal cannula saturating 81%. I placed her on nonrebreather mask 15 L and she saturations increased to 95-98% . During evaluation patient states she is claustrophobic and wanted to remove mask. Respiratory therapy called for her high flow nasal cannula placement. Past Medical History Past Medical History: Past Medical History: - Spina Bifida - Thyroid nodule - Heart failure - Right thalamic lacunar infarct - Benign neoplasm of the large intestine/ - Esophagitis, - Hypertension - Dyslipidemia - Migraine headaches - Degenerative joint disease - H/o falls - interstitial lung disease - Pulmonary emphysema - Pulmonary edema Past Surgical History: Past Surgical History: - Bronchoscopy - Cardiac catheterization - Cataract surgery - Colonoscopy - Hysterectomy - Oophorectomy - Spine Repair - Tubal ligation Family History Cancer BROTHER (lung CA) 1. Family history of Lung Cancer - Brother 2. Family history of Coronary Artery Disease V17.49 3. Family history of Diabetes Mellitus V18.0 4. Family history of Epilepsy And Recurrent Seizures V17.2 5. Family history of Heart Disease V17.49 6. Family history of Hypertension V17.49 7. Family history of Lung Involvement In Disease Classified Elsewhere 8. Family history of Reported Family History Of Kidney Disease Social History She is with 2-step children. She was born in [place], [place] and is a life-long [place] resident and prior to SNF, she lived with her , 1 dog and 1 cat in a ranch-style home in [place], [place]. 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 She denies travel or ETOH consumptions. She is a former smoker. Hx Tobacco Use In Past Year?: No Smoking Status: Former Smoker Marital status: Housing status: lives with family Occupational Status: employed, disabled Immunizations History of Influenza Vaccine: Yes Influenza Vaccine Date: Jul 12, 2012 History of Tetanus Vaccine?: Unknown History of Pneumococcal: Unknown Pneumococcal Date: February 04, 2008 History of Hepatitis B Vaccine: No History of MDRO History of MDRO: Yes Type of MDRO: MRSA Allergies Coded Allergies: [place] Oil (Verified Adverse Reaction, Mild, GI UPSET, 05/20/17) Lactose Intolerance (GI) (Verified Adverse Reaction, Mild, GI SYMPTOMS, ) Morphine (Verified Adverse Reaction, Mild, confusion, 05/20/17) Current Medications Reported Home Medications Medications Dose Route/Sig Max Daily Dose Days Date Category Dose Instructions Prednisone 10 Mg Tab 10 Mg PO DAILY 05/20/17 Reported Apap (Acetaminophen) 325 Mg Tab 325 Mg PO Q4 PRN 05/20/17 Reported Micro-K Ext Rel (Potassium Chloride) 10 Meq Capcr 10 Meq PO DAILY 30 04/21/17 Rx Furosemide 20 Mg Tab 20 Mg PO QAM 30 04/21/17 Rx Sertraline HCl 50 Mg Tab 100 Mg PO HS 30 04/21/17 Rx Spiriva Handihaler (Tiotropium [place]) 5 Puff/90 Mcg Aerp 1 Puff INH QAM 04/21/17 Rx Lopressor (Metoprolol Tartrate) 25 Mg Tab 25 Mg PO BID 04/17/17 Reported Saline Nasal Kendall (Saline) 0.65 % Spr 2 Sprays NA BID 04/06/17 Rx Levalbuterol 1.25 Mg/0.5 Ml Nebu 1.25 Mg INH Q4H PRN 10 04/06/17 Rx Proair Respiclick (Albuterol Sulfate) 108 Mcg/Act Aer 2 Puffs INH Q4H PRN 03/23/17 Reported [Alteril] 0.5 Cap PO HS 04/07/16 Reported Oxygen Gas 3 Liters NA PRN 04/06/16 Reported Crestor (Rosuvastatin Calcium) 20 Mg Tab 20 Mg PO QPM 03/20/16 Reported Imodium (Loperamide HCl) 2 Mg Cap 2 Mg PO UD 08/03/15 Reported Take 1 tab by mouth once. Then take 1 tablet after each loose BM. No more than 4 tablets per day for up to 2 days. Lomotil (Diphenoxylate HCl/Atropine) Tab 1 Tab PO BID PRN 08/03/15 Reported Aspirin Ec (Aspirin) 81 Mg Tab 81 Mg PO DAILY 04/29/15 Reported Pamelor (Nortriptyline Hcl) 25 Mg Cap 25 Mg PO QAM 04/29/15 Reported Vesicare (Solifenacin Succinate) 5 Mg Tab 5 Mg PO QAM 04/29/15 Reported Symbicort 80/4.5 Inhaler (Budesonide/Formoterol Fumarate) 120 Puffs/ Aero 2 Puffs INH BID 04/29/15 Reported Os-Harman 500 Plus D (Calcium/Vitamin D) Tab 1 Tab PO BID 02/14/13 Reported Pepcid (Famotidine) 20 Mg Tab 20 Mg PO QPM 02/14/13 Reported Librax 5MG/2.5MG (Chlordiazepoxide/Clidinium) 1 Ea Cap 1 Ea PO BID 09/07/12 Reported Physical Physical Exam Vital Signs: Date Time Temp Pulse Resp B/P (MAP) Pulse Ox O2 Delivery O2 Flow Rate FiO2 05/23/17 15:44 99 22 102/67 92 Nasal Cannula 6.0 05/23/17 15:06 101 24 101/65 94 Nasal Cannula 6.0 05/23/17 14:44 101 30 105/66 89 Nasal Cannula 6.0 05/23/17 14:15 101 22 108/71 93 Nebulizer 05/23/17 13:49 102 26 116/87 95 Nebulizer 6.0 05/23/17 13:25 98 24 Non-Rebreather 13.0 05/23/17 13:18 103 05/23/17 12:57 35 Nasal Cannula 5.0 05/23/17 12:56 Non-Rebreather 15.0 05/23/17 12:45 35 Nasal Cannula 5.0 05/23/17 12:45 35 Nasal Cannula 5.0 05/23/17 12:45 37.3 98 33 116/80 35 Nasal Cannula 5.0 General Appearance: WD/WN, NO APPARENT DISTRESS, thin, other (pale) Head: NORMOCEPHALIC, ATRAUMATIC Eyes: PERRLA, NO DISCHARGE, EOMI, SCLERAE NORMAL, CONJUNCTIVAE NORMAL ENT: NORMAL NASAL EXAM (dried blood in right nostril), NORMAL MOUTH EXAM ( upper denture, moist mucous membranes, Mallampati 1, no erythema or exudate) Neck: NORMAL RANGE OF MOTION, NO TENDERNESS, TRACHEA MIDLINE, NO STRIDOR Respiratory: other (good air entry bilaterally with fine Velcro crackles, mildly tachypneic, no respiratory distress or use of accessory muscles of respiration) Cardiovasular: REGULAR RATE/RHYTHM, NORMAL S1S2 Abdomen: NON TENDER, NORMAL BOWEL SOUNDS, NO REBOUND Back: other Upper Extremities: other (clubbing noted bilaterally) Edema: Bilateral LE (1+) Pulses: dorsalis pedis (R) (2+), dorsalis pedis (L) (2+) Neuro: ALERT, ORIENTED x 3, NORMAL MOTOR EXAM, NORMAL SENSATION, NORMAL CEREBELLAR EXAM, NORMAL SPEECH, NORMAL MEMORY Psychiatric: NORMAL AFFECT, NO SUICIDAL IDEATION, CONTRACTS FOR SAFETY Diagnostics Labs Results Past 24 Hours Test 05/23/17 13:19 05/23/17 13:20 05/23/17 13:23 05/23/17 14:25 Range/Units Bedside Lactic Acid Venous 3.29 0.90-1.70 mmol/L White Blood Count 13.33 4.8-10.8 K/uL Red Blood Count 4.55 4.2-5.4 M/uL Hemoglobin 13.8 12.0-16.0 g/dL Hematocrit 42.3 37-47 % Mean Corpuscular Volume 93.0 80-100 fL Mean Corpuscular Hemoglobin 30.3 25-34 pg Mean Corpuscular Hemoglobin Concent 32.6 32-36 g/dl Platelet Count 208 130-400 K/uL Mean Platelet Volume 10.3 7.4-10.4 fL Neutrophils (%) (Auto) 83.1 % Lymphocytes (%) (Auto) 9.8 % Monocytes (%) (Auto) 4.0 % Eosinophils (%) (Auto) 2.0 % Basophils (%) (Auto) 0.1 % Neutrophils # (Auto) 11.10 1.4-6.5 K/uL Lymphocytes # (Auto) 1.30 1.2-3.4 K/uL Monocytes # (Auto) 0.53 0.11-0.59 K/uL Eosinophils # (Auto) 0.26 0-0.5 K/uL Basophils # (Auto) 0.01 0-0.2 K/uL RDW Standard Deviation 55.0 36.4-46.3 fL RDW Coefficient of Variation 16.3 11.5-14.5 % Immature Granulocyte % (Auto) 1.0 % Immature Granulocyte # (Auto) 0.13 0.00-0.02 K/uL Nucleated RBC Absolute Count (auto) 0.03 0-0 K/uL Nucleated Red Blood Cells % 0.2 % Venous Blood pH 7.43 7.36-7.41 Venous Blood Partial Pressure CO2 42 38.0-50.0 mmHg Venous Blood Partial Pressure O2 48 mmHg Venous Blood HCO3 27 mmol/L Venous Blood Oxygen Saturation 81.3 % Venous Blood Base Excess 2.5 mEq/L Sodium Level 134 136-145 mmol/L Potassium Level 4.1 3.5-5.1 mmol/L Chloride Level 98 98-107 mmol/L Carbon Dioxide Level 30 21-32 mmol/L Anion Gap 6.0 15.0 16-25 mmol/L Blood Urea Nitrogen 16 7-18 mg/dl Creatinine 0.81 0.60-1.20 mg/dl Estimated GFR () 90.2 Estimated GFR (Non- 77.8 BUN/Creatinine Ratio 19.9 10-20 Random Glucose 82 70-99 mg/dl Calcium Level 9.1 8.5-10.1 mg/dl Magnesium Level 2.2 1.8-2.4 mg/dl Total Bilirubin 0.7 0.2-1 mg/dl Direct Bilirubin 0.1 0-0.2 mg/dl Aspartate Amino Transf (AST/SGOT) 23 15-37 U/L Alanine Aminotransferase (ALT/SGPT) 23 12-78 U/L Alkaline Phosphatase 109 45-117 U/L Total Protein 7.8 6.4-8.2 gm/dl Albumin 3.0 3.4-5.0 gm/dl Lipase 98 73-393 U/L Bedside Hemoglobin 15.0 12.0-16.0 g/dl Bedside Hematocrit 44 37-47 % Bedside Sodium 135 135-144 mEq/L Bedside Potassium 5.4 3.3-5.0 mEq/L Bedside Chloride 96 101-112 mEq/L Bedside Total CO2 30 24-31 mEq/l Bedside Blood Urea Nitrogen 22 7-18 mg/dl Bedside Creatinine 0.8 0.6-1.3 mg/dl Bedside Glucose (other) 89 70-99 mg/dl Bedside Ionized Calcium (Shadia) 1.08 1.12-1.32 mmol/l Troponin I 0.016 0-0.045 ng/ml Microbiology Results 05/23/17 Blood Culture, Received Pending 05/23/17 Blood Culture, Received Pending 05/23/17 MRSA DNA Surveillance Screen - Final, Complete Specimen Positive for MRSA by DNA Probe Diagnostic Radiology Chest x-ray from 05/23/2017 IMPRESSION: 1. Stable to slight interval worsening of diffuse bilateral lung opacities, which may represent multifocal pneumonia, severe pulmonary edema, or diffuse alveolar damage superimposed on background emphysema or chronic lung disease. CT ANGIOGRAM OF THE CHEST 04/17/17: "IMPRESSION: 1. Significantly motion compromised examination. 2. There is no evidence of pulmonary embolus in the main, lobar, or proximal segmental pulmonary arteries. 3. Advanced emphysema and suspect superimposed interstitial lung disease. 4. Patchy consolidative change is seen throughout both lungs. The appearance is nonspecific, and this could represent pneumonia, aspiration pneumonitis, pulmonary edema, and/or pulmonary hemorrhage. Clinical correlation will be essential and radiographic follow-up to resolution is recommended. 5. Trace right pleural effusion. 6. Additional findings as above." ALSO NOTED dilation of the pulmonary trunk ECHOCARDIOGRAM 04/18/17: - EF: 65/70%, RVSP: 40-50mmHg, Mild TR, trace MR Video swallow evaluation 04/18/2017-no aspiration identified, somewhat disordered esophageal motility. Impression Assessment and Plan Acute on chronic hypoxic respiratory failure COPD Pulmonary fibrosis Patient has acute on chronic hypoxic respiratory failure with a combination of COPD/pulmonary fibrosis. She is on chronic long-term oxygen therapy and has end -stage disease. -Recommend ICU consult for possible admission -keep SaO2 btw 88-92% -Placed on high flow nasal cannula with humidification and titrate as tolerated -chest PT, Mucomyst 3 ML twice a day, flutter valve -Send pro-calcitonin level, in the meantime continue with Zosyn 3.375 g, vancomycin and Zosyn to cover for empirically for pneumonia -I will place on Atrovent as well as Xopenex nebulizers every 6 hours -Give Solu-Medrol 40 mg IV every 8 hours -Start nasal spray for nasal congestion -Send sputum cultures -Address goals of care with patient and family I spoke with patient as well as her regarding goals of care if she should decompensate. She states that she does not want to be intubated, however states that he would like her to have a trial of intubation for several days if the disease process his reversible. Currently she remains a full code. -Continue DVT prophylaxis
[2017-05-23] MEDS ORDERED: VANCOMYCIN CONSULT ACTIVE PRN (18:15)
[2017-05-23] MEDS ORDERED: CEFEPIME CONSULT ACTIVE PRN ×2 (18:30)
[2017-05-23] MEDS ORDERED: LEVOFLOXACIN CONSULT ACTIVE PRN (18:30)
[2017-05-23 19:15] VITALS: BP 155/82; PULSE 92; TEMP 36.8; O2SAT 94; Ht 160 cm; Wt 65.0 kg
[2017-05-23 20:00] VITALS: O2SAT 93
--- NOTE | 2017-05-23 20:04 | Pharmacy Progress Note ---
Pharmacy Abx Initial Consult Date of Service May 23, 2017. Pharmacy Dosing Scope Date of Consult: 05/23/17 Consultation requested by: Celina GARCIA Pharmacy is consulted to initiate Vanco/Levaquin/Cefepime IV dosing therapy, order appropriate labs and adjust drug dose/frequency. Subjective The patient is a 61 year old female admitted on May 23, 2017 at 17:44. Objective Weight (Kilograms): 65.900 Vital Signs (Past 12Hrs) Vital Signs Past 12 Hours Date Time Temp Pulse Resp B/P (MAP) Pulse Ox O2 Delivery O2 Flow Rate FiO2 05/23/17 18:42 98 22 132/90 92 05/23/17 18:00 93 24 126/90 96 High Flow Oxygen 60 05/23/17 17:56 95 High Flow Oxygen 60 05/23/17 17:30 97 24 151/92 86 6.0 05/23/17 17:00 93 22 126/85 96 6.0 05/23/17 16:52 96 05/23/17 16:30 98 22 119/76 91 6.0 05/23/17 15:44 99 22 102/67 92 Nasal Cannula 6.0 05/23/17 15:06 101 24 101/65 94 Nasal Cannula 6.0 05/23/17 14:44 101 30 105/66 89 Nasal Cannula 6.0 05/23/17 14:15 101 22 108/71 93 Nebulizer 05/23/17 13:49 102 26 116/87 95 Nebulizer 6.0 05/23/17 13:25 98 24 Non-Rebreather 13.0 05/23/17 13:18 103 05/23/17 12:57 35 Nasal Cannula 5.0 05/23/17 12:56 Non-Rebreather 15.0 05/23/17 12:45 35 Nasal Cannula 5.0 05/23/17 12:45 35 Nasal Cannula 5.0 05/23/17 12:45 37.3 98 33 116/80 35 Nasal Cannula 5.0 Lab Results (24Hrs) Laboratory Tests (24 Hours) Test 05/23/17 13:20 White Blood Count 13.33 K/uL (4.8-10.8) H Red Blood Count 4.55 M/uL (4.2-5.4) Hemoglobin 13.8 g/dL (12.0-16.0) Hematocrit 42.3 % (37-47) Mean Corpuscular Volume 93.0 fL (80-100) Mean Corpuscular Hemoglobin 30.3 pg (25-34) Mean Corpuscular Hemoglobin Concent 32.6 g/dl (32-36) Platelet Count 208 K/uL (130-400) Mean Platelet Volume 10.3 fL (7.4-10.4) Neutrophils (%) (Auto) 83.1 % Lymphocytes (%) (Auto) 9.8 % Monocytes (%) (Auto) 4.0 % Eosinophils (%) (Auto) 2.0 % Basophils (%) (Auto) 0.1 % Neutrophils # (Auto) 11.10 K/uL (1.4-6.5) H Lymphocytes # (Auto) 1.30 K/uL (1.2-3.4) Monocytes # (Auto) 0.53 K/uL (0.11-0.59) Eosinophils # (Auto) 0.26 K/uL (0-0.5) Basophils # (Auto) 0.01 K/uL (0-0.2) Micro Results Date/Time Source Procedure Growth Status 05/23/17 13:20 Blood Blood Culture Pending Received 05/23/17 13:15 Blood Blood Culture Pending Received 05/23/17 14:10 Nasal MRSA DNA Surveillance Screen - Final Specimen Positive for MRSA by DNA Probe Complete Risk Factors for Resistance * Resident in a penitentiary or extended-care facility * Hospitalization for 48 hours or more within the past 90 days * Antimicrobial use within the last 90 days Assessment & Plan Assessment 61 year old female initiated on IV Vanco/Levaquin/Cefepime for sepsis secondary to pulmonary source. Pt with multiple risk factors for MDRO and critical illness - broad spectrum abx warranted. Plan Vancomycin IV * Loading dose: 1500 mg (22.7 mg/kg) * Maintenance dose: 1000 mg IV (15 mg/kg) every 14 hours * Goal trough level for pulmonary : 15 to 20 mcg/mL * Trough level ordered for 05/25/17 @ 0730 (prior to 3rd maintenance dose) * A less than traditional dosing interval has/have been selected due to pt specific calc PK parameters Levaquin * 750mg IV Q24hrs for CrCl > 50ml/min Cefepime * 2,000 mg IV Q8hrs for pulmonary source and CrCl > 60ml/min Pharmacy will continue to follow and will adjust dose/frequency as necessary. Thank you.
[2017-05-23 20:23] LABS: URINE APPEARANCE CLOUDY (CLEAR); URINE BILIRUBIN NEG (NEG); URINE COLOR YELLOW; URINE EPITHELIAL CELL AUTO >30 /lpf (0-5); URINE NITRITE POS (NEG); URINE PH 6.5 (4.5-7.5); URINE SPECIFIC GRAVITY 1.017 (1.000-1.030); UROBILINOGEN NEG (NEG)
[2017-05-23 20:36] LABS: MANUAL MICROSCOPIC REQUIRED? NO; REVIEW REQ? YES
[2017-05-23] MEDS: FUROSEMIDE INJ 40 MG in SYRINGE 0 ML IV SCH (20:44)
[2017-05-23] MEDS: ENOXAPARIN 40 MG/0.4 ML SYR SC SCH (20:45)
[2017-05-23] MEDS: SERTRALINE HCL 50 MG TAB PO SCH (20:46)
[2017-05-23] MEDS: CALCIUM 600MG + VIT D 400 IU TAB PO SCH (20:46)
[2017-05-23] MEDS: FAMOTIDINE 20 MG TAB PO SCH (20:46)
[2017-05-23] MEDS: METOPROLOL TARTRATE 25 MG TAB PO SCH (20:46)
[2017-05-23] MEDS: SODIUM CHLORIDE 0.65% NA SOLN 45 ML (OCEAN) SCH (20:47)
[2017-05-23] MEDS: POTASSIUM CHLORIDE 20 MEQ TABCR PO SCH (20:47)
[2017-05-23] MEDS: ROSUVASTATIN CALCIUM 20 MG TAB PO SCH (20:47)
[2017-05-23] MEDS: LEVALBUTEROL 1.25MG/0.5ML NEB INH SCH (21:00)
[2017-05-23] MEDS: ACETYLCYSTEINE 20% INHAL SOLN ***DISPENSED BY RESP. INH SCH (21:00)
[2017-05-23] MEDS: IPRATROPIUM BROMIDE NEB SOLN 0.02% 2.5 ML VIAL INH SCH (21:00)
[2017-05-23] MEDS ORDERED: LEVALBUTEROL/IPRATROPIUM NEB INH SCH (21:00)
[2017-05-23] MEDS: METHYLPREDNISOLONE IV 40 MG in SYRINGE 0 ML IV SCH (21:28)
[2017-05-23] MEDS ORDERED: CEFEPIME IV 2000 MG in DEXTROSE 5% 100ML IV SCH (22:00)
--- NOTE | 2017-05-23 22:23 | Progress Note ---
Progress Note Post Crystalloid Evaluation Date: May 23, 2017 Time: 16:00 (Celina Esposito, P.A.-C.) Subjective 61yo F presents with worsening SOB and severe weakness. Recently prematurely discharged from SNF rehab. Previously hospitalized with HF exacerbation. (Celina Esposito, P.A.-C.) Physical Exam Vital Signs: Vital Signs Date Time Temp Pulse Resp B/P (MAP) Pulse Ox O2 Delivery O2 Flow Rate FiO2 05/23/17 20:00 93 High Flow Oxygen 05/23/17 19:15 36.8 92 22 155/82 15.0 05/23/17 18:00 60 Lungs: + crackles, + rhonchi Heart: + tachycardia (Celina Esposito, P.A.-C.) Assessment & Plan Sepsis 2/2 PNA, UTI, sinusitis: -Patient meets SIRs criteria with HR of 101, tachypneic at 25, leukocytosis of 13 -Lactate of 3.2. Will recheck. -Both lung and urine as potential sources of infection: -CXR with slight interval worsening of bilateral lung opacities -UA with +nitrites, leuk esterase -Started on vanc, cefepime and Levaquin for broad spectrum coverage in the ED -Blood cultures pending -Careful resuscitation of fluids due to R sided HF (Celina Esposito ., P.A.-C.)
[2017-05-23] MEDS ORDERED: PIPERACILLIN/TAZOBACTAM 4.5 GM/100ML D5W IV STA (23:07)
[2017-05-23] MEDS ORDERED: PIPERACILL/TAZOBAC CONSULT ACTIVE PRN (23:15)
[2017-05-23 23:59] VITALS: BP 105/67; PULSE 84; TEMP 36.5; O2SAT 94
[2017-05-24] VITALS (12 sets, daily range): BP systolic 90–119; BP diastolic 56–74; PULSE 81–98; TEMP 36.4–37; O2SAT 60–95
[2017-05-24] MEDS: IPRATROPIUM BROMIDE NEB SOLN 0.02% 2.5 ML VIAL INH SCH ×4 (01:47→19:40)
[2017-05-24] MEDS: LEVALBUTEROL 1.25MG/0.5ML NEB INH SCH ×4 (01:47→19:40)
[2017-05-24] MEDS ORDERED: VANCOMYCIN INJ 1,000 MG in SODIUM CHLORIDE 0.9% 250ML 250 ML IV SCH (04:00)
[2017-05-24] MEDS: PIPERACILL/TAZOBAC IV 3.375 GM in DEXTROSE 5% 100ML IV SCH ×3 (04:39→20:18)
[2017-05-24 06:34] LABS: HEMATOCRIT 33.7 % (37-47); MEAN CELL VOLUME 91.3 fL (80-100); MEAN CORPUSCULAR HEMOGLOBIN 29.3 pg (25-34); PLATELET COUNT 191 K/uL (130-400); RED BLOOD COUNT 3.69 M/uL (4.2-5.4); WHITE BLOOD COUNT 7.51 K/uL (4.8-10.8)
[2017-05-24] MEDS: ACETYLCYSTEINE 20% INHAL SOLN ***DISPENSED BY RESP. INH SCH ×2 (06:57→19:44)
[2017-05-24 07:07] LABS: CALCIUM 8.4 mg/dl (8.5-10.1); CREATININE 0.68 mg/dl (0.60-1.20)
[2017-05-24] MEDS: NORTRIPTYLINE HCL 25 MG CAP PO SCH (08:22)
[2017-05-24] MEDS: FUROSEMIDE INJ 40 MG in SYRINGE 0 ML IV SCH ×2 (08:22→20:18)
[2017-05-24] MEDS: ASPIRIN 81 MG ECTAB PO SCH (08:23)
[2017-05-24] MEDS: CALCIUM 600MG + VIT D 400 IU TAB PO SCH ×2 (08:23→20:20)
[2017-05-24] MEDS: POTASSIUM CHLORIDE 20 MEQ TABCR PO SCH ×2 (08:23→20:20)
[2017-05-24] MEDS: METHYLPREDNISOLONE IV 40 MG in SYRINGE 0 ML IV SCH ×2 (08:23→20:18)
[2017-05-24] MEDS: SODIUM CHLORIDE 0.65% NA SOLN 45 ML (OCEAN) SCH ×2 (08:27→20:20)
[2017-05-24] MEDS: METOPROLOL TARTRATE 25 MG TAB PO SCH ×2 (08:29→20:19)
--- NOTE | 2017-05-24 09:41 | Clinical Documentation Query ---
CLINICAL DOCUMENTATION QUERY 61-y/o female with hx of pulmonary fibrosis present septic 2/2 to pneumonia. Other diagnoses include acute on chronic respiratory failure and acute right sided CHF. In your clinical opinion is this patient being managed for: ( X ) Suspected MRSA or Gram negative pneumonia is setting of HCAP treated with IV Vanco, IV Zosyn, & IV Levofloxacin ( ) Not Agree ( ) Other explanation of clinical findings (Please Explain) ( ) Unable to determine (Please Define) ( ) Need to Discuss The medical record reflects the following clinical findings, treatment, and risk factors. Clinical Indicators: acute respiratory failure, pneumonia in senior living resident Treatment: IV Vanco, IV Zosyn, IV Levofloxacin, IV Lasix, Risk Factors: senior living residence, pulmonary fibrosis, & immunosuppressive therapy (prednisone). Please clarify and document your clinical opinion in the progress notes and discharge summary. Terms such as "probable", "suspected", "likely", "questionable", "possible", or "still to be ruled out" are acceptable. IF IN AGREEMENT, YOU MUST DOCUMENT ABOVE DIAGNOSTIC STATEMENT IN DAILY PROGRESS NOTES AND DISCHARGE SUMMARY. This document is not part of the patient's record. Thank You, Jose Miguel Galvez, RN [phone]
[2017-05-24] MEDS: LEVOFLOXACIN 750MG / D5W IV SCH (12:03)
--- NOTE | 2017-05-24 13:09 | Pulmonology Progress Note ---
Pulmonary Progress Note Date of Service May 24, 2017. Attending Dr. De La Paz Subjective Patient seen and examined. She states that she is feeling better than yesterday. She is having a cough with occasional sputum. She denies any chest pain. Just had lunch and tolerated it well. Objective VS: reviewed, Tm 36.8, Bp 94/59-117/74, P 85-96, RR 20-24, SaO2 91-95% on HFNC 50L flow rate, FIO2 60%. 700cc - since admission. General Appearance: WD/WN, NO APPARENT DISTRESS, thin, other (pale) Head: NORMOCEPHALIC, ATRAUMATIC Eyes: PERRLA, NO DISCHARGE, EOMI, SCLERAE NORMAL, CONJUNCTIVAE NORMAL ENT: NORMAL NASAL EXAM (dried blood in right nostril), NORMAL MOUTH EXAM ( upper denture, moist mucous membranes, Mallampati 1, no erythema or exudate) Neck: NORMAL RANGE OF MOTION, NO TENDERNESS, TRACHEA MIDLINE, NO STRIDOR Respiratory: other (good air entry bilaterally with fine Velcro crackles, mildly tachypneic, no respiratory distress or use of accessory muscles of respiration) Cardiovasular: REGULAR RATE/RHYTHM, NORMAL S1S2 Abdomen: NON TENDER, NORMAL BOWEL SOUNDS, NO REBOUND Back: other Upper Extremities: other (clubbing noted bilaterally) Edema: Bilateral LE (1+) Pulses: dorsalis pedis (R) (2+), dorsalis pedis (L) (2+) Neuro: ALERT, ORIENTED x 3, NORMAL MOTOR EXAM, NORMAL SENSATION Labs reviewed. WBC 13.3-->7.51, Hgb 13.8-->10.8, Plt 208-->191. Lactate 2.6--> 1.1, BNP 3140, Procalcitonin 0.12 U/A: nitrite, LE +, > 30 H, Urine bacteria 1+ H Urine cx--pending Imaging reviewed Medications reviewed and are listed. Assessment & Plan Acute on chronic hypoxic respiratory failure COPD Pulmonary fibrosis Patient has acute on chronic hypoxic respiratory failure with a combination of COPD/pulmonary fibrosis. She is on chronic long-term oxygen therapy and has end -stage disease. -keep SaO2 btw 88-92% -Continue high flow nasal cannula with humidification and titrate as tolerated -chest PT, Mucomyst 3 ML twice a day, flutter valve -continue with Zosyn 3.375 g, vancomycin and Zosyn to cover for empirically for pneumonia -Continue with Atrovent as well as Xopenex nebulizers every 6 hours -Give Solu-Medrol 40 mg IV every 12 hours -Continue nasal spray for nasal congestion -Send sputum cultures and follow up blood cultures -Continue DVT prophylaxis Data Medications: Current Inpatient Medications Medications (Trade) Dose Ordered Sig/Bishnu Route Start Time Stop Time Status Last Admin Dose Admin Enoxaparin Sodium (Lovenox Inj) 40 mg Q24H SC 05/23/17 21:00 06/22/17 20:59 05/23/17 20:45 40 MG Acetaminophen (Tylenol Tab) 650 mg Q4H PRN PO 05/23/17 17:45 06/22/17 17:44 Ondansetron HCl (Zofran Inj) 4 mg Q6H PRN IV 05/23/17 17:45 06/22/17 17:44 Polyethylene (Miralax Powder Packet) 17 gm DAILY PRN PO 05/23/17 17:45 06/22/17 17:44 Furosemide 40 mg/ Syringe 4 ml @ 4 mls/min BID IV 05/23/17 21:00 06/22/17 20:59 05/24/17 08:22 4 MLS/MIN Potassium Chloride (Klor-Con Tab) 20 meq BID PO 05/23/17 21:00 06/22/17 20:59 05/24/17 08:23 20 MEQ Aspirin (Ecotrin Tab) 81 mg DAILY PO 05/24/17 09:00 06/23/17 08:59 05/24/17 08:23 81 MG Calcium/Vitamin D (Caltrate Plus Tab) 1 tab BID PO 05/23/17 21:00 06/22/17 20:59 05/24/17 08:23 1 TAB Famotidine (Pepcid Tab) 20 mg QPM PO 05/23/17 21:00 06/22/17 20:59 05/23/17 20:46 20 MG Metoprolol Tartrate (Lopressor Tab) 25 mg BID PO 05/23/17 21:00 06/22/17 20:59 05/24/17 08:29 25 MG Nortriptyline HCl (Pamelor Cap) 25 mg QAM PO 05/24/17 09:00 06/23/17 08:59 05/24/17 08:22 25 MG Rosuvastatin Calcium (Crestor Tab) 20 mg QPM PO 05/23/17 21:00 06/22/17 20:59 05/23/17 20:47 20 MG Sodium Chloride ([place] Nasal [place]) 2 sprays BID NA 05/23/17 21:00 06/22/17 20:59 05/24/17 08:27 2 SPRAYS Sertraline HCl (Zoloft Tab) 100 mg HS PO 05/23/17 21:00 06/22/17 20:59 05/23/17 20:46 100 MG Miscellaneous Information (Order Awaiting Action) 1 ea QS N/A 05/24/17 00:00 06/23/17 00:00 Vancomycin HCl (Consult) 1 ea UD PRN N/A 05/23/17 18:15 06/22/17 18:14 Levofloxacin (Consult) 1 ea UD PRN N/A 05/23/17 18:30 06/22/17 18:29 Levofloxacin 750 mg/Prmx 150 ml @ 100 mls/hr Q24H IV 05/24/17 12:30 05/30/17 12:29 Acetylcysteine (Mucomyst 20% Inh Soln) 3 ml BIDR INH 05/23/17 21:00 06/22/17 20:59 05/24/17 06:57 3 ML Methylprednisolone Sodium Succinate 40 mg/Syringe 0.64 ml @ 1.5 mls/min BID IV 05/23/17 21:00 06/22/17 20:59 05/24/17 08:23 1.5 MLS/MIN Ipratropium [place] (Atrovent 0.02% 0.5MG/2.5ML Neb) 0.5 mg Q6R INH 05/23/17 21:00 06/22/17 20:59 05/24/17 06:57 0.5 MG Levalbuterol (Xopenex 1.25MG/ 0.5ML Neb) 1.25 mg Q6R INH 05/23/17 21:00 06/22/17 20:59 05/24/17 06:57 1.25 MG Piperacillin Sod/ Tazobactam Sod (Consult) 1 ea UD PRN N/A 05/23/17 23:15 06/22/17 23:14 Piperacillin Sod/ Tazobactam Sod 3.375 gm/Dextrose 115 ml @ 28.75 mls/ hr Q8H IV 05/24/17 04:00 05/31/17 03:59 05/24/17 11:25 28.75 MLS/HR Vancomycin HCl 1000 mg/Sodium Chloride 270 ml @ 125 mls/hr Q12@0400,1600 IV 05/24/17 16:00 05/31/17 15:59 Vital Signs: Date Time Temp Pulse Resp B/P (MAP) Pulse Ox O2 Delivery O2 Flow Rate FiO2 05/24/17 11:28 High Flow Oxygen 05/24/17 08:29 108/57 (74) 05/24/17 08:17 36.8 96 20 94/59 (71) 91 High Flow Oxygen 05/24/17 08:00 High Flow Oxygen 05/24/17 06:57 86 20 95 Nasal Cannula 50.0 05/24/17 04:00 36.7 87 24 117/74 (88) 95 High Flow Oxygen 48.0 61 05/24/17 04:00 High Flow Oxygen 45.0 60 05/24/17 01:48 85 20 95 Nasal Cannula 50.0 05/23/17 23:59 36.5 84 18 105/67 (80) 94 High Flow Oxygen 45.0 60 05/23/17 23:59 High Flow Oxygen 45.0 60 05/23/17 20:00 93 High Flow Oxygen 05/23/17 19:15 36.8 92 22 155/82 94 Non-Rebreather 15.0 05/23/17 18:42 98 22 132/90 92 05/23/17 18:00 93 24 126/90 96 High Flow Oxygen 60 05/23/17 17:56 95 High Flow Oxygen 60 05/23/17 17:30 97 24 151/92 86 6.0 05/23/17 17:00 93 22 126/85 96 6.0 05/23/17 16:52 96 05/23/17 16:30 98 22 119/76 91 6.0 05/23/17 15:44 99 22 102/67 92 Nasal Cannula 6.0 05/23/17 15:06 101 24 101/65 94 Nasal Cannula 6.0 05/23/17 14:44 101 30 105/66 89 Nasal Cannula 6.0 05/23/17 14:15 101 22 108/71 93 Nebulizer 05/23/17 13:49 102 26 116/87 95 Nebulizer 6.0 05/23/17 13:25 98 24 Non-Rebreather 13.0 05/23/17 13:18 103 05/23/17 12:57 35 Nasal Cannula 5.0 05/23/17 12:56 Non-Rebreather 15.0 05/23/17 12:45 35 Nasal Cannula 5.0 05/23/17 12:45 35 Nasal Cannula 5.0 05/23/17 12:45 37.3 98 33 116/80 35 Nasal Cannula 5.0 Laboratory Results: Last 24 Hours Test 05/23/17 13:19 05/23/17 13:20 05/23/17 13:23 05/23/17 14:25 Bedside Lactic Acid Venous 3.29 mmol/L White Blood Count 13.33 K/uL Red Blood Count 4.55 M/uL Hemoglobin 13.8 g/dL Hematocrit 42.3 % Mean Corpuscular Volume 93.0 fL Mean Corpuscular Hemoglobin 30.3 pg Mean Corpuscular Hemoglobin Concent 32.6 g/dl Platelet Count 208 K/uL Mean Platelet Volume 10.3 fL Neutrophils (%) (Auto) 83.1 % Lymphocytes (%) (Auto) 9.8 % Monocytes (%) (Auto) 4.0 % Eosinophils (%) (Auto) 2.0 % Basophils (%) (Auto) 0.1 % Neutrophils # (Auto) 11.10 K/uL Lymphocytes # (Auto) 1.30 K/uL Monocytes # (Auto) 0.53 K/uL Eosinophils # (Auto) 0.26 K/uL Basophils # (Auto) 0.01 K/uL RDW Standard Deviation 55.0 fL RDW Coefficient of Variation 16.3 % Immature Granulocyte % (Auto) 1.0 % Immature Granulocyte # (Auto) 0.13 K/uL Nucleated RBC Absolute Count (auto) 0.03 K/uL Nucleated Red Blood Cells % 0.2 % Venous Blood pH 7.43 Venous Blood Partial Pressure CO2 42 mmHg Venous Blood Partial Pressure O2 48 mmHg Venous Blood HCO3 27 mmol/L Venous Blood Oxygen Saturation 81.3 % Venous Blood Base Excess 2.5 mEq/L Sodium Level 134 mmol/L Potassium Level mmol/L 4.1 mmol/L Chloride Level 98 mmol/L Carbon Dioxide Level 30 mmol/L Anion Gap 6.0 mmol/L 15.0 mmol/L Blood Urea Nitrogen 16 mg/dl Creatinine 0.81 mg/dl Estimated GFR () 90.2 Estimated GFR (Non- 77.8 BUN/Creatinine Ratio 19.9 Random Glucose 82 mg/dl Calcium Level 9.1 mg/dl Magnesium Level mg/dl 2.2 mg/dl Total Bilirubin 0.7 mg/dl Direct Bilirubin mg/dl 0.1 mg/dl Aspartate Amino Transf (AST/SGOT) U/L 23 U/L Alanine Aminotransferase (ALT/SGPT) 23 U/L Alkaline Phosphatase 109 U/L Total Protein 7.8 gm/dl Albumin 3.0 gm/dl Lipase 98 U/L Bedside Hemoglobin 15.0 g/dl Bedside Hematocrit 44 % Bedside Sodium 135 mEq/L Bedside Potassium 5.4 mEq/L Bedside Chloride 96 mEq/L Bedside Total CO2 30 mEq/l Bedside Blood Urea Nitrogen 22 mg/dl Bedside Creatinine 0.8 mg/dl Bedside Glucose (other) 89 mg/dl Bedside Ionized Calcium (Shadia) 1.08 mmol/l Troponin I 0.016 ng/ml Test 05/23/17 19:30 05/23/17 21:15 05/23/17 22:18 05/24/17 06:15 Urine Color YELLOW Urine Appearance CLOUDY Urine pH 6.5 Urine Specific [place] 1.017 Urine Protein NEG Urine Glucose (UA) NEG Urine Ketones NEG Urine Occult Blood NEG Urine Nitrite POS Urine Bilirubin NEG Urine Urobilinogen NEG Urine Leukocyte Esterase MODERATE Urine WBC (Auto) >30 /hpf Urine RBC (Auto) 0-4 /hpf Urine Hyaline Casts (Auto) 1-5 /lpf Urine Epithelial Cells (Auto) >30 /lpf Urine Bacteria (Auto) 1+ Urine Renal Epithelial Cells 5-10 /lpf Pro-B-Type Natriuretic Peptide 3140 pg/ml Procalcitonin 0.12 ng/ml Lactic Acid Level 2.6 mmol/L White Blood Count 7.51 K/uL Red Blood Count 3.69 M/uL Hemoglobin 10.8 g/dL Hematocrit 33.7 % Mean Corpuscular Volume 91.3 fL Mean Corpuscular Hemoglobin 29.3 pg Mean Corpuscular Hemoglobin Concent 32.0 g/dl RDW Standard Deviation 54.0 fL RDW Coefficient of Variation 16.2 % Platelet Count 191 K/uL Mean Platelet Volume 10.0 fL Sodium Level 137 mmol/L Potassium Level 4.0 mmol/L Chloride Level 102 mmol/L Carbon Dioxide Level 29 mmol/L Anion Gap 6.0 mmol/L Blood Urea Nitrogen 16 mg/dl Creatinine 0.68 mg/dl Est Creatinine Clear Calc Drug Dose 77.2 ml/min Estimated GFR () 108.7 Estimated GFR (Non- 93.7 BUN/Creatinine Ratio 23.0 Random Glucose 165 mg/dl Calcium Level 8.4 mg/dl Test 05/24/17 06:19 Lactic Acid Level 1.1 mmol/L
--- NOTE | 2017-05-24 15:28 | Progress Note ---
Internal Med Progress Note Date of Service: May 24, 2017. Provider Documentation: SUBJECTIVE: sob and cough much better today denies any chest pain afebrile eating ok hemodynamics stable OBJECTIVE: Vital Signs-as noted below Exam: General-alert and oriented. Not in distress ENT-normal hearing Neck-no neck masses Lungs-cta b/l no wheezing mild bibasilar crackles Heart-s1 and s2 heard regular rhythm, no murmurs Abdomen-soft bowel sounds present non tender no distension Extremities lower edema present no erythema Neuro-alert and oriented moves extremities Lab data as noted below. ASSESSMENT & PLAN: This is a 61yo female with a PMH of chronic respiratory failure 2/2 COPD, pulmonary fibrosis (on home O2), R sided HF, HTN who presents in acute respiratory failure after home health nurse found her to be hypoxic at 57%. Acute on chronic hypoxic respiratory failure: acute copd and ILD flare Health care pneumonia- possible gm negative or mrsa Baseline of 88% on chronic O2 therapy at home (5L NC) Found to be hypoxic at 57% prior to arrival in ED initially required NRB mask currently on high flow oxygen and oxygen sats are ok on iv steroids, iv Levaquin and vancomycin and Zosyn Chest PT, Mucomyst 3 ML twice a day, flutter valve as per pulmonary will f/u cx Sepsis 2/2 PNA, UTI: on abx as above will f/u cx Acute on chronic R-sided Heart Failure, Preserved Ef: secondary underlying pulmonary disease Echo (04/10) with preserved EF: 65-70% but elevated R ventricular systolic pressure on iv Lasix 40mg bid f/u i/o's and daily weights HTN: Stable on Lasix, metoprolol will monitor Code staus level 1 DVT PROPHYLAXIS Lovenox DISPOSITION monitor in tele to be determined Vital Signs: Date Time Temp Pulse Resp B/P (MAP) Pulse Ox O2 Delivery O2 Flow Rate FiO2 05/24/17 14:33 98 20 89 Nasal Cannula 50.0 05/24/17 11:28 High Flow Oxygen 05/24/17 10:38 36.4 81 20 119/74 (89) 94 High Flow Oxygen 05/24/17 08:29 108/57 (74) 05/24/17 08:17 36.8 96 20 94/59 (71) 91 High Flow Oxygen 05/24/17 08:00 High Flow Oxygen 05/24/17 06:57 86 20 95 Nasal Cannula 50.0 05/24/17 04:00 36.7 87 24 117/74 (88) 95 High Flow Oxygen 48.0 61 05/24/17 04:00 High Flow Oxygen 45.0 60 05/24/17 01:48 85 20 95 Nasal Cannula 50.0 05/23/17 23:59 36.5 84 18 105/67 (80) 94 High Flow Oxygen 45.0 60 05/23/17 23:59 High Flow Oxygen 45.0 60 05/23/17 20:00 93 High Flow Oxygen 05/23/17 19:15 36.8 92 22 155/82 94 Non-Rebreather 15.0 05/23/17 18:42 98 22 132/90 92 05/23/17 18:00 93 24 126/90 96 High Flow Oxygen 60 05/23/17 17:56 95 High Flow Oxygen 60 05/23/17 17:30 97 24 151/92 86 6.0 05/23/17 17:00 93 22 126/85 96 6.0 05/23/17 16:52 96 05/23/17 16:30 98 22 119/76 91 6.0 05/23/17 15:44 99 22 102/67 92 Nasal Cannula 6.0 Lab Results: Results Past 24 Hours Test 05/23/17 19:30 05/23/17 21:15 05/23/17 22:18 05/24/17 06:15 Range/Units Urine Color YELLOW Urine Appearance CLOUDY CLEAR Urine pH 6.5 4.5-7.5 Urine Specific [place] 1.017 1.000-1.030 Urine Protein NEG NEG Urine Glucose (UA) NEG NEG Urine Ketones NEG NEG Urine Occult Blood NEG NEG Urine Nitrite POS NEG Urine Bilirubin NEG NEG Urine Urobilinogen NEG NEG Urine Leukocyte Esterase MODERATE NEG Urine WBC (Auto) >30 0-5 /hpf Urine RBC (Auto) 0-4 0-4 /hpf Urine Hyaline Casts (Auto) 1-5 0-5 /lpf Urine Epithelial Cells (Auto) >30 0-5 /lpf Urine Bacteria (Auto) 1+ NEG Urine Renal Epithelial Cells 5-10 0-5 /lpf Pro-B-Type Natriuretic Peptide 3140 0-900 pg/ml Procalcitonin 0.12 0-0.5 ng/ml Lactic Acid Level 2.6 0.4-2.0 mmol/L White Blood Count 7.51 4.8-10.8 K/uL Red Blood Count 3.69 4.2-5.4 M/uL Hemoglobin 10.8 12.0-16.0 g/dL Hematocrit 33.7 37-47 % Mean Corpuscular Volume 91.3 80-100 fL Mean Corpuscular Hemoglobin 29.3 25-34 pg Mean Corpuscular Hemoglobin Concent 32.0 32-36 g/dl RDW Standard Deviation 54.0 36.4-46.3 fL RDW Coefficient of Variation 16.2 11.5-14.5 % Platelet Count 191 130-400 K/uL Mean Platelet Volume 10.0 7.4-10.4 fL Sodium Level 137 136-145 mmol/L Potassium Level 4.0 3.5-5.1 mmol/L Chloride Level 102 98-107 mmol/L Carbon Dioxide Level 29 21-32 mmol/L Anion Gap 6.0 3-11 mmol/L Blood Urea Nitrogen 16 7-18 mg/dl Creatinine 0.68 0.60-1.20 mg/dl Est Creatinine Clear Calc Drug Dose 77.2 ml/min Estimated GFR () 108.7 Estimated GFR (Non- 93.7 BUN/Creatinine Ratio 23.0 10-20 Random Glucose 165 70-99 mg/dl Calcium Level 8.4 8.5-10.1 mg/dl Test 05/24/17 06:19 Range/Units Lactic Acid Level 1.1 0.4-2.0 mmol/L Microbiology Results 05/23/17 Urine Culture - Preliminary, Resulted NO GROWTH - LESS THAN 1,000 COLONIES/...
[2017-05-24] MEDS: VANCOMYCIN INJ 1,000 MG in SODIUM CHLORIDE 0.9% 250ML 250 ML IV SCH (15:39)
[2017-05-24] MEDS ORDERED: NURSING VERBAL MED ORDER ONE (15:45)
[2017-05-24] MEDS: ROSUVASTATIN CALCIUM 20 MG TAB PO SCH (20:18)
[2017-05-24] MEDS: FAMOTIDINE 20 MG TAB PO SCH (20:18)
[2017-05-24] MEDS: SERTRALINE HCL 50 MG TAB PO SCH (20:19)
[2017-05-24] MEDS: ENOXAPARIN 40 MG/0.4 ML SYR SC SCH (20:19)
[2017-05-24] MEDS: [UNRECOGNIZED DRUG - OTHER] PO SCH (20:20)
[2017-05-25] VITALS (19 sets, daily range): BP systolic 98–128; BP diastolic 55–80; PULSE 77–91; TEMP 36.4–36.8; O2SAT 83–98
[2017-05-25] MEDS: LEVALBUTEROL 1.25MG/0.5ML NEB INH SCH ×4 (01:43→19:12)
[2017-05-25] MEDS: IPRATROPIUM BROMIDE NEB SOLN 0.02% 2.5 ML VIAL INH SCH ×4 (01:52→19:12)
[2017-05-25] MEDS ORDERED: VANCOMYCIN TROUGH SCH ×2 (03:30→07:30)
[2017-05-25] MEDS: PIPERACILL/TAZOBAC IV 3.375 GM in DEXTROSE 5% 100ML IV SCH ×3 (04:31→21:04)
[2017-05-25] MEDS: VANCOMYCIN INJ 1,000 MG in SODIUM CHLORIDE 0.9% 250ML 250 ML IV SCH ×3 (04:31→23:53)
[2017-05-25] MEDS: ACETYLCYSTEINE 20% INHAL SOLN ***DISPENSED BY RESP. INH SCH ×2 (07:02→19:15)
[2017-05-25] MEDS: NORTRIPTYLINE HCL 25 MG CAP PO SCH (07:35)
[2017-05-25] MEDS: ASPIRIN 81 MG ECTAB PO SCH (07:35)
[2017-05-25] MEDS: SODIUM CHLORIDE 0.65% NA SOLN 45 ML (OCEAN) SCH ×2 (07:36→21:00)
[2017-05-25] MEDS: POTASSIUM CHLORIDE 20 MEQ TABCR PO SCH ×2 (07:36→21:05)
[2017-05-25] MEDS: METOPROLOL TARTRATE 25 MG TAB PO SCH ×2 (07:36→21:05)
[2017-05-25] MEDS: CALCIUM 600MG + VIT D 400 IU TAB PO SCH ×2 (07:36→21:05)
[2017-05-25] MEDS: METHYLPREDNISOLONE IV 40 MG in SYRINGE 0 ML IV SCH ×2 (08:06→21:04)
[2017-05-25] MEDS: FUROSEMIDE INJ 40 MG in SYRINGE 0 ML IV SCH ×2 (08:06→21:05)
[2017-05-25 09:57] LABS: BUN/CREATININE RATIO 23.4 (10-20); CALCIUM 8.2 mg/dl (8.5-10.1); CREATININE 0.65 mg/dl (0.60-1.20); POTASSIUM 3.9 mmol/L (3.5-5.1)
[2017-05-25 09:59] LABS: ALB/GLOB RATIO 0.6 (0.9-2)
--- NOTE | 2017-05-25 11:12 | Progress Note ---
Internal Med Progress Note Date of Service: May 25, 2017. Provider Documentation: SUBJECTIVE: sob and cough improving no pain no nausea ate breakfast ok feeling better OBJECTIVE: Vital Signs-as noted below Exam: General-alert and oriented. Not in distress ENT-normal hearing Neck-no neck masses Lungs-cta b/l no wheezing mild bibasilar crackles Heart-s1 and s2 heard regular rhythm, no murmurs Abdomen-soft bowel sounds present non tender no distension Extremities lower edema present no erythema Neuro-alert and oriented moves extremities Lab data as noted below. ASSESSMENT & PLAN: This is a 61yo female with a PMH of chronic respiratory failure 2/2 COPD, pulmonary fibrosis (on home O2), R sided HF, HTN who presents in acute respiratory failure after home health nurse found her to be hypoxic at 57%. Acute on chronic hypoxic respiratory failure: acute copd and ILD flare Health care pneumonia- possible gm negative or mrsa Baseline of 88% on chronic O2 therapy at home (5L NC) Found to be hypoxic at 57% prior to arrival in ED initially required NRB mask currently on high flow oxygen and oxygen sats are ok on iv steroids, iv Levaquin and vancomycin and Zosyn Chest PT, Mucomyst 3 ML twice a day, flutter valve as per pulmonary will f/u cx plan for oxygen mask today will monitor Sepsis 2/2 PNA, UTI: on abx as above will f/u cx Acute on chronic R-sided Heart Failure, Preserved Ef: secondary underlying pulmonary disease Echo (04/10) with preserved EF: 65-70% but elevated R ventricular systolic pressure on iv Lasix 40mg bid f/u i/o's and daily weights continue same HTN: Stable on Lasix, metoprolol will monitor Code staus level 1 DVT PROPHYLAXIS Lovenox DISPOSITION monitor in tele to be determined Vital Signs: Date Time Temp Pulse Resp B/P (MAP) Pulse Ox O2 Delivery O2 Flow Rate FiO2 05/25/17 09:54 128/80 (96) 92 50 05/25/17 08:00 92 High Flow Oxygen 45.0 50 05/25/17 07:38 36.8 87 20 98/55 (69) 88 High Flow Oxygen 05/25/17 07:06 79 20 94 Nasal Cannula 50.0 05/25/17 04:18 36.8 78 20 118/67 (84) 94 High Flow Oxygen 47.0 61 05/25/17 04:10 93 High Flow Oxygen 45.0 60 05/25/17 01:52 83 20 93 Nasal Cannula 50.0 05/25/17 00:23 36.4 91 18 120/63 (82) 91 High Flow Oxygen 45.0 60 05/25/17 00:15 92 High Flow Oxygen 45.0 60 05/24/17 20:00 92 High Flow Oxygen 45.0 60 05/24/17 19:47 90 20 89 Nasal Cannula 50.0 05/24/17 19:36 37.0 85 26 112/59 (76) 92 High Flow Oxygen 05/24/17 16:19 96/59 (71) 05/24/17 16:00 36.5 93 20 90/56 (67) 93 High Flow Oxygen 05/24/17 15:00 High Flow Oxygen 05/24/17 14:33 98 20 89 Nasal Cannula 50.0 05/24/17 11:28 High Flow Oxygen Lab Results: Results Past 24 Hours Test 05/25/17 03:30 05/25/17 09:05 Range/Units Vancomycin Level Trough 11.6 SEE COMMENT mcg/ml Sodium Level 135 136-145 mmol/L Potassium Level 3.9 3.5-5.1 mmol/L Chloride Level 102 98-107 mmol/L Carbon Dioxide Level 30 21-32 mmol/L Anion Gap 3.0 3-11 mmol/L Blood Urea Nitrogen 15 7-18 mg/dl Creatinine 0.65 0.60-1.20 mg/dl Est Creatinine Clear Calc Drug Dose 80.8 ml/min Estimated GFR () 110.3 Estimated GFR (Non- 95.2 BUN/Creatinine Ratio 23.4 10-20 Random Glucose 119 70-99 mg/dl Calcium Level 8.2 8.5-10.1 mg/dl Magnesium Level 2.0 1.8-2.4 mg/dl Total Bilirubin 0.4 0.2-1 mg/dl Aspartate Amino Transf (AST/SGOT) 16 15-37 U/L Alanine Aminotransferase (ALT/SGPT) 20 12-78 U/L Alkaline Phosphatase 99 45-117 U/L Total Protein 6.7 6.4-8.2 gm/dl Albumin 2.6 3.4-5.0 gm/dl Globulin 4.1 2.5-4.0 gm/dl Albumin/Globulin Ratio 0.6 0.9-2
[2017-05-25] MEDS: LEVOFLOXACIN 750MG / D5W IV SCH (12:16)
--- NOTE | 2017-05-25 14:47 | Pulmonology Progress Note ---
Pulmonary Progress Note Date of Service May 25, 2017. Attending Dr. De La Paz Subjective Patient seen and examined today. She is sitting up in bed on high flow nasal cannula. She states that she is feeling better from when she first came in. She is feeling a little less dyspneic. Still having intermittent dry cough. Objective VS: reviewed, Tm 36.8, Bp 95/55-128/80, P77-91, RR18-20, SaO2 86-94% on HFNC 45L flow rate, FIO2 45%. 2L - since admission. General Appearance: WD/WN, NO APPARENT DISTRESS, thin, other (pale) Head: NORMOCEPHALIC, ATRAUMATIC Eyes: PERRLA, NO DISCHARGE, EOMI, SCLERAE NORMAL, CONJUNCTIVAE NORMAL ENT: NORMAL NASAL EXAM (dried blood in right nostril), NORMAL MOUTH EXAM ( upper denture, moist mucous membranes, Mallampati 1, no erythema or exudate) Neck: NORMAL RANGE OF MOTION, NO TENDERNESS, TRACHEA MIDLINE, NO STRIDOR Respiratory: other (good air entry bilaterally with fine Velcro crackles, mildly tachypneic, no respiratory distress or use of accessory muscles of respiration) Cardiovasular: REGULAR RATE/RHYTHM, NORMAL S1S2 Abdomen: NON TENDER, NORMAL BOWEL SOUNDS, NO REBOUND Back: other Upper Extremities: other (clubbing noted bilaterally) Edema: Bilateral LE (1+) Pulses: dorsalis pedis (R) (2+), dorsalis pedis (L) (2+) Neuro: ALERT, ORIENTED x 3, NORMAL MOTOR EXAM, NORMAL SENSATION Labs reviewed. Urine cx--no growth Blood cx-no growth Imaging reviewed Medications reviewed and are listed. Assessment & Plan Acute on chronic hypoxic respiratory failure COPD Pulmonary fibrosis Patient has acute on chronic hypoxic respiratory failure with a combination of COPD/pulmonary fibrosis. She is on chronic long-term oxygen therapy and has end -stage disease. She is clinically improving. She is requiring decreased amounts of FIO2 on HFNC. -keep SaO2 btw 88-92% -Continue high flow nasal cannula with humidification and titrate as tolerated -chest PT, Mucomyst 3 ML twice a day, flutter valve -continue with Zosyn 3.375 g, vancomycin and Zosyn to cover for empirically for pneumonia -Continue with Atrovent as well as Xopenex nebulizers every 6 hours -Continue Solu-Medrol 40 mg IV every 12 hours -Continue nasal spray for nasal congestion -Send sputum cultures -Continue DVT prophylaxis Will continue to follow Last 24 Hours Test 05/25/17 03:30 05/25/17 09:05 Vancomycin Level Trough 11.6 mcg/ml Sodium Level 135 mmol/L Potassium Level 3.9 mmol/L Chloride Level 102 mmol/L Carbon Dioxide Level 30 mmol/L Anion Gap 3.0 mmol/L Blood Urea Nitrogen 15 mg/dl Creatinine 0.65 mg/dl Est Creatinine Clear Calc Drug Dose 80.8 ml/min Estimated GFR () 110.3 Estimated GFR (Non- 95.2 BUN/Creatinine Ratio 23.4 Random Glucose 119 mg/dl Calcium Level 8.2 mg/dl Magnesium Level 2.0 mg/dl Total Bilirubin 0.4 mg/dl Aspartate Amino Transf (AST/SGOT) 16 U/L Alanine Aminotransferase (ALT/SGPT) 20 U/L Alkaline Phosphatase 99 U/L Total Protein 6.7 gm/dl Albumin 2.6 gm/dl Globulin 4.1 gm/dl Albumin/Globulin Ratio 0.6 Data Medications: Current Inpatient Medications Medications (Trade) Dose Ordered Sig/Bishnu Route Start Time Stop Time Status Last Admin Dose Admin Enoxaparin Sodium (Lovenox Inj) 40 mg Q24H SC 05/23/17 21:00 06/22/17 20:59 05/24/17 20:19 40 MG Acetaminophen (Tylenol Tab) 650 mg Q4H PRN PO 05/23/17 17:45 06/22/17 17:44 Ondansetron HCl (Zofran Inj) 4 mg Q6H PRN IV 05/23/17 17:45 06/22/17 17:44 Polyethylene (Miralax Powder Packet) 17 gm DAILY PRN PO 05/23/17 17:45 06/22/17 17:44 Furosemide 40 mg/ Syringe 4 ml @ 4 mls/min BID IV 05/23/17 21:00 06/22/17 20:59 05/25/17 08:06 4 MLS/MIN Potassium Chloride (Klor-Con Tab) 20 meq BID PO 05/23/17 21:00 06/22/17 20:59 05/25/17 07:36 20 MEQ Aspirin (Ecotrin Tab) 81 mg DAILY PO 05/24/17 09:00 06/23/17 08:59 05/25/17 07:35 81 MG Calcium/Vitamin D (Caltrate Plus Tab) 1 tab BID PO 05/23/17 21:00 06/22/17 20:59 05/25/17 07:36 1 TAB Famotidine (Pepcid Tab) 20 mg QPM PO 05/23/17 21:00 06/22/17 20:59 05/24/17 20:18 20 MG Metoprolol Tartrate (Lopressor Tab) 25 mg BID PO 05/23/17 21:00 06/22/17 20:59 05/25/17 07:36 25 MG Nortriptyline HCl (Pamelor Cap) 25 mg QAM PO 05/24/17 09:00 06/23/17 08:59 05/25/17 07:35 25 MG Rosuvastatin Calcium (Crestor Tab) 20 mg QPM PO 05/23/17 21:00 06/22/17 20:59 05/24/17 20:18 20 MG Sodium Chloride ([place] Nasal [place]) 2 sprays BID NA 05/23/17 21:00 06/22/17 20:59 05/25/17 07:36 2 SPRAYS Sertraline HCl (Zoloft Tab) 100 mg HS PO 05/23/17 21:00 06/22/17 20:59 05/24/17 20:19 100 MG Miscellaneous Information (Order Awaiting Action) 1 ea QS N/A 05/24/17 00:00 06/23/17 00:00 Vancomycin HCl (Consult) 1 ea UD PRN N/A 05/23/17 18:15 06/22/17 18:14 Levofloxacin (Consult) 1 ea UD PRN N/A 05/23/17 18:30 06/22/17 18:29 Levofloxacin 750 mg/Prmx 150 ml @ 100 mls/hr Q24H IV 05/24/17 12:30 05/30/17 12:29 05/25/17 12:16 100 MLS/HR Acetylcysteine (Mucomyst 20% Inh Soln) 3 ml BIDR INH 05/23/17 21:00 06/22/17 20:59 05/25/17 07:02 3 ML Methylprednisolone Sodium Succinate 40 mg/Syringe 0.64 ml @ 1.5 mls/min BID IV 05/23/17 21:00 06/22/17 20:59 05/25/17 08:06 1.5 MLS/MIN Ipratropium [place] (Atrovent 0.02% 0.5MG/2.5ML Neb) 0.5 mg Q6R INH 05/23/17 21:00 06/22/17 20:59 05/25/17 14:19 0.5 MG Levalbuterol (Xopenex 1.25MG/ 0.5ML Neb) 1.25 mg Q6R INH 05/23/17 21:00 06/22/17 20:59 05/25/17 14:19 1.25 MG Piperacillin Sod/ Tazobactam Sod (Consult) 1 ea UD PRN N/A 05/23/17 23:15 06/22/17 23:14 Piperacillin Sod/ Tazobactam Sod 3.375 gm/Dextrose 115 ml @ 28.75 mls/ hr Q8H IV 05/24/17 04:00 05/31/17 03:59 05/25/17 11:25 28.75 MLS/HR Non-Formulary Medication (Non-Formulary Patient'S Own Med) 1 ea HS PO 05/24/17 21:00 06/23/17 20:59 05/24/17 20:20 1 EA Vancomycin HCl 1000 mg/Sodium Chloride 270 ml @ 125 mls/hr Q10H IV 05/25/17 14:00 05/31/17 15:59 05/25/17 13:24 125 MLS/HR I & O: 24-Hour Column 05/26/17 08:00 Intake Total 525 ml Output Total 1350 ml Balance -825 ml Vital Signs: Date Time Temp Pulse Resp B/P (MAP) Pulse Ox O2 Delivery O2 Flow Rate FiO2 05/25/17 14:20 78 20 91 Nasal Cannula 45.0 05/25/17 11:29 86 High Flow Oxygen 45 Humidified Oxygen 05/25/17 11:27 92 High Flow Oxygen 45.0 50 05/25/17 11:26 92 High Flow Oxygen 50 05/25/17 11:00 36.7 77 20 110/66 (81) 87 High Flow Oxygen 05/25/17 09:54 128/80 (96) 92 50 05/25/17 08:00 92 High Flow Oxygen 45.0 50 05/25/17 07:38 36.8 87 20 98/55 (69) 88 High Flow Oxygen 05/25/17 07:06 79 20 94 Nasal Cannula 50.0 05/25/17 04:18 36.8 78 20 118/67 (84) 94 High Flow Oxygen 47.0 61 05/25/17 04:10 93 High Flow Oxygen 45.0 60 05/25/17 01:52 83 20 93 Nasal Cannula 50.0 05/25/17 00:23 36.4 91 18 120/63 (82) 91 High Flow Oxygen 45.0 60 05/25/17 00:15 92 High Flow Oxygen 45.0 60 05/24/17 20:00 92 High Flow Oxygen 45.0 60 05/24/17 19:47 90 20 89 Nasal Cannula 50.0 05/24/17 19:36 37.0 85 26 112/59 (76) 92 High Flow Oxygen 05/24/17 16:19 96/59 (71) 05/24/17 16:00 36.5 93 20 90/56 (67) 93 High Flow Oxygen 05/24/17 15:00 High Flow Oxygen Laboratory Results: Last 24 Hours Test 05/25/17 03:30 05/25/17 09:05 Vancomycin Level Trough 11.6 mcg/ml Sodium Level 135 mmol/L Potassium Level 3.9 mmol/L Chloride Level 102 mmol/L Carbon Dioxide Level 30 mmol/L Anion Gap 3.0 mmol/L Blood Urea Nitrogen 15 mg/dl Creatinine 0.65 mg/dl Est Creatinine Clear Calc Drug Dose 80.8 ml/min Estimated GFR () 110.3 Estimated GFR (Non- 95.2 BUN/Creatinine Ratio 23.4 Random Glucose 119 mg/dl Calcium Level 8.2 mg/dl Magnesium Level 2.0 mg/dl Total Bilirubin 0.4 mg/dl Aspartate Amino Transf (AST/SGOT) 16 U/L Alanine Aminotransferase (ALT/SGPT) 20 U/L Alkaline Phosphatase 99 U/L Total Protein 6.7 gm/dl Albumin 2.6 gm/dl Globulin 4.1 gm/dl Albumin/Globulin Ratio 0.6
--- NOTE | 2017-05-25 14:49 | Pharmacy Progress Note ---
Pharmacy Abx Dose Short Note Date of Service May 25, 2017. Assessment & Plan Assessment * 61 year old female receiving VANCOMYCIN, ZOSYN and LEVOFLOXACIN for treatment of sepsis likely secondary PNX and associated w/ hypoxemic resp failure in a patient with a h/o ILD and COPD on home O2 therapy * CXR was read as diffuse bilateral opacities: mutifocal pnx vs severe pulm edema vs diffuse alveolar damage * Initial procalcitonin was only 0.12 (making bacterial sepsis less likely); no repeat procalcitonin has been ordered * WBC 13.3 on admit but normalized yesterday. Currently afebrile. Sats 86-92 on high-flow oxygen therapy, FiO2 45-50%; RR 18-20 today * Cultures remain negative, however MRSA nasal swab was positive * Day # 3 of antimicrobial therapy Plan Vancomycin * Trough level of 11.6 mcg/mL is subtherapeutic on a dose of 1000mg IV Q 12 hours. Prior doses hung at appropriate times. Level was also drawn at the appropriate time - although no quite reflective of steady-state. The level may increase a little more w/ repeat dosing as level was drawn after only 2 maintenance doses. * Change to 1000 mg IV (15mg/kg) every 10 hours * Goal trough level for pulm infxn : 15 to 20 mcg/mL * Trough or random level ordered for: []/[]/[] Zosyn * Continue 3.375gm extended-infusion (over 4 hours) IV Q 8 hours for eCrcl > 20cc/min Levofloxacin * Continue 750mg IV Q 24 hrs for eCrCl > 50cc/min Pharmacy will continue to follow and will adjust dose/frequency as necessary. Thank you.
[2017-05-25] MEDS: ENOXAPARIN 40 MG/0.4 ML SYR SC SCH (21:04)
[2017-05-25] MEDS: SERTRALINE HCL 50 MG TAB PO SCH (21:05)
[2017-05-25] MEDS: FAMOTIDINE 20 MG TAB PO SCH (21:05)
[2017-05-25] MEDS: ROSUVASTATIN CALCIUM 20 MG TAB PO SCH (21:05)
[2017-05-25] MEDS: [UNRECOGNIZED DRUG - OTHER] PO SCH (22:18)
[2017-05-26] VITALS (12 sets, daily range): BP systolic 95–119; BP diastolic 63–70; PULSE 75–91; TEMP 36.3–36.9; O2SAT 89–92
[2017-05-26] MEDS: LEVALBUTEROL 1.25MG/0.5ML NEB INH SCH ×4 (02:12→18:58)
[2017-05-26] MEDS: IPRATROPIUM BROMIDE NEB SOLN 0.02% 2.5 ML VIAL INH SCH ×4 (02:12→18:58)
[2017-05-26] MEDS: PIPERACILL/TAZOBAC IV 3.375 GM in DEXTROSE 5% 100ML IV SCH ×3 (04:52→20:48)
[2017-05-26] MEDS: ACETYLCYSTEINE 20% INHAL SOLN ***DISPENSED BY RESP. INH SCH ×2 (06:58→18:58)
[2017-05-26] MEDS: SODIUM CHLORIDE 0.65% NA SOLN 45 ML (OCEAN) SCH ×2 (07:51→21:18)
[2017-05-26] MEDS: FUROSEMIDE INJ 40 MG in SYRINGE 0 ML IV SCH ×2 (07:51→21:08)
[2017-05-26] MEDS: METHYLPREDNISOLONE IV 40 MG in SYRINGE 0 ML IV SCH ×2 (07:51→21:05)
[2017-05-26] MEDS: POTASSIUM CHLORIDE 20 MEQ TABCR PO SCH ×2 (07:52→21:09)
[2017-05-26] MEDS: CALCIUM 600MG + VIT D 400 IU TAB PO SCH ×2 (07:52→21:14)
[2017-05-26] MEDS: ASPIRIN 81 MG ECTAB PO SCH ×2 (07:52→21:10)
[2017-05-26] MEDS: METOPROLOL TARTRATE 25 MG TAB PO SCH ×2 (07:53→21:11)
[2017-05-26] MEDS: NORTRIPTYLINE HCL 25 MG CAP PO SCH ×2 (07:53→21:12)
[2017-05-26] MEDS: VANCOMYCIN INJ 1,000 MG in SODIUM CHLORIDE 0.9% 250ML 250 ML IV SCH ×2 (09:17→20:48)
[2017-05-26 10:29] LABS: BUN/CREATININE RATIO 23.6 (10-20); CALCIUM 8.8 mg/dl (8.5-10.1); CREATININE 0.77 mg/dl (0.60-1.20); MAGNESIUM 1.9 mg/dl (1.8-2.4); POTASSIUM 3.7 mmol/L (3.5-5.1)
[2017-05-26] MEDS: LEVOFLOXACIN 750MG / D5W IV SCH (11:35)
--- NOTE | 2017-05-26 15:05 | Progress Note ---
Internal Med Progress Note Date of Service: May 26, 2017. Provider Documentation: SUBJECTIVE: sob and cough BETTER eating ok afebrile no complaints OBJECTIVE: Vital Signs-as noted below Exam: General-alert and oriented. Not in distress ENT-normal hearing Neck-no neck masses Lungs-cta b/l no wheezing mild bibasilar crackles Heart-s1 and s2 heard regular rhythm, no murmurs Abdomen-soft bowel sounds present non tender no distension Extremities lower edema present no erythema Neuro-alert and oriented moves extremities Lab data as noted below. ASSESSMENT & PLAN: This is a 61yo female with a PMH of chronic respiratory failure 2/2 COPD, pulmonary fibrosis (on home O2), R sided HF, HTN who presents in acute respiratory failure after home health nurse found her to be hypoxic at 57%. Acute on chronic hypoxic respiratory failure: acute copd and ILD flare Health care pneumonia- possible gm negative or mrsa Baseline of 88% on chronic O2 therapy at home (5L NC) Found to be hypoxic at 57% prior to arrival in ED initially required NRB mask later was on high flow oxygen for couple of day on iv steroids, iv Levaquin and vancomycin and Zosyn Chest PT, Mucomyst 3 ML twice a day, flutter valve as per pulmonary currently saturating ok on 6lts will change iv Levaquin to azithromycin will monitor Sepsis 2/2 PNA, UTI: on abx as above will f/u cx Acute on chronic R-sided Heart Failure, Preserved Ef: secondary underlying pulmonary disease Echo (04/10) with preserved EF: 65-70% but elevated R ventricular systolic pressure on iv Lasix 40mg bid f/u i/o's and daily weights continue same for now HTN: Stable on Lasix, metoprolol will monitor Code staus level 1 DVT PROPHYLAXIS Lovenox DISPOSITION monitor in tele to be determined Vital Signs: Date Time Temp Pulse Resp B/P (MAP) Pulse Ox O2 Delivery O2 Flow Rate FiO2 05/26/17 14:58 36.5 77 22 105/68 (80) 92 Nasal Cannula 6.0 05/26/17 14:11 75 18 91 Nasal Cannula 5.0 05/26/17 12:04 36.6 82 18 117/69 (85) 90 Nasal Cannula 5.0 05/26/17 12:00 Oxymask 05/26/17 08:00 36.8 85 18 119/68 (85) 89 Nasal Cannula 6.0 05/26/17 08:00 Oxymask 05/26/17 06:57 78 20 92 Mask 11.0 05/26/17 04:00 89 Oxymask 10.0 05/26/17 03:50 36.8 77 18 112/63 (79) 91 Oxymask 10.0 05/26/17 02:15 79 18 91 Mask 10.0 05/26/17 00:01 36.9 86 21 95/70 (78) 89 Oxymask 10.0 05/26/17 00:00 89 Oxymask 10.0 05/25/17 20:51 36.7 82 22 101/56 (71) 98 Oxymask 13.0 05/25/17 20:00 88 Oxymask 10.0 05/25/17 19:27 84 20 93 Mask 12.0 05/25/17 16:49 83 Mask 12.0 05/25/17 16:39 36.8 81 22 110/66 (81) 97 12.0 Lab Results: Results Past 24 Hours Test 05/26/17 09:51 Range/Units Sodium Level 136 136-145 mmol/L Potassium Level 3.7 3.5-5.1 mmol/L Chloride Level 101 98-107 mmol/L Carbon Dioxide Level 29 21-32 mmol/L Anion Gap 6.0 3-11 mmol/L Blood Urea Nitrogen 18 7-18 mg/dl Creatinine 0.77 0.60-1.20 mg/dl Est Creatinine Clear Calc Drug Dose 67.7 ml/min Estimated GFR () 95.9 Estimated GFR (Non- 82.8 BUN/Creatinine Ratio 23.6 10-20 Random Glucose 166 70-99 mg/dl Calcium Level 8.8 8.5-10.1 mg/dl Magnesium Level 1.9 1.8-2.4 mg/dl
[2017-05-26] MEDS ORDERED: VANCOMYCIN TROUGH ONE (19:30)
[2017-05-26] MEDS: AZITHROMYCIN 250 MG TAB PO SCH (21:06)
[2017-05-26] MEDS: FAMOTIDINE 20 MG TAB PO SCH (21:08)
[2017-05-26] MEDS: ROSUVASTATIN CALCIUM 20 MG TAB PO SCH (21:10)
[2017-05-26] MEDS: SERTRALINE HCL 50 MG TAB PO SCH (21:12)
[2017-05-26] MEDS: ENOXAPARIN 40 MG/0.4 ML SYR SC SCH (21:15)
[2017-05-26] MEDS: [UNRECOGNIZED DRUG - OTHER] PO SCH (21:16)
[2017-05-27] VITALS (11 sets, daily range): BP systolic 99–126; BP diastolic 56–76; PULSE 79–95; TEMP 36.3–36.7; O2SAT 89–100
[2017-05-27] MEDS: LEVALBUTEROL 1.25MG/0.5ML NEB INH SCH ×4 (01:38→18:44)
[2017-05-27] MEDS: IPRATROPIUM BROMIDE NEB SOLN 0.02% 2.5 ML VIAL INH SCH ×4 (01:38→18:44)
[2017-05-27] MEDS: PIPERACILL/TAZOBAC IV 3.375 GM in DEXTROSE 5% 100ML IV SCH ×3 (04:29→20:45)
[2017-05-27] MEDS: VANCOMYCIN INJ 1,000 MG in SODIUM CHLORIDE 0.9% 250ML 250 ML IV SCH ×2 (06:12→16:08)
[2017-05-27 06:37] LABS: BASO % 0.1 %; BASO ABS # 0.01 K/uL (0-0.2); COMPLETE YES; EOS % 0.2 %; HEMATOCRIT 32.8 % (37-47); IG% 1.5 %; LYMPH % 17.3 %; LYMPH ABS # 2.03 K/uL (1.2-3.4); MEAN CELL VOLUME 91.9 fL (80-100); MEAN CORPUSCULAR HEMOGLOBIN 29.4 pg (25-34); MEAN PLATELET VOLUME 9.6 fL (7.4-10.4); MONO % 7.7 %; NEUT % 73.2 %; PLATELET COUNT 200 K/uL (130-400); RED BLOOD COUNT 3.57 M/uL (4.2-5.4); WHITE BLOOD COUNT 11.71 K/uL (4.8-10.8)
[2017-05-27 07:11] LABS: BUN/CREATININE RATIO 27.7 (10-20); CALCIUM 8.3 mg/dl (8.5-10.1); CREATININE 0.84 mg/dl (0.60-1.20)
[2017-05-27] MEDS: ACETYLCYSTEINE 20% INHAL SOLN ***DISPENSED BY RESP. INH SCH ×2 (07:38→18:44)
[2017-05-27] MEDS: SODIUM CHLORIDE 0.65% NA SOLN 45 ML (OCEAN) SCH ×2 (09:00→20:43)
[2017-05-27] MEDS: FUROSEMIDE INJ 40 MG in SYRINGE 0 ML IV SCH ×2 (09:43→20:39)
[2017-05-27] MEDS: METHYLPREDNISOLONE IV 40 MG in SYRINGE 0 ML IV SCH ×2 (09:43→20:39)
[2017-05-27] MEDS: CALCIUM 600MG + VIT D 400 IU TAB PO SCH ×2 (09:43→20:39)
[2017-05-27] MEDS: METOPROLOL TARTRATE 25 MG TAB PO SCH ×2 (09:44→20:41)
[2017-05-27] MEDS: POTASSIUM CHLORIDE 20 MEQ TABCR PO SCH ×2 (09:44→20:40)
--- NOTE | 2017-05-27 11:07 | Pulmonology Progress Note ---
Pulmonary Progress Note Date of Service May 27, 2017. Attending Subjective Patient seen and examined. Has no complaints at the current time. She feels as if her breathing is somewhat better. She denies any shortness of breath. Still has dry cough. Denies any chest pain. Objective VS: reviewed, Tm 36.7, P 120/66, P 79-83, RR 18-21, P 90-93 on 6L, Currently 2L negative since admission. General Appearance: WD/WN, NO APPARENT DISTRESS, thin, other (pale) Head: NORMOCEPHALIC, ATRAUMATIC Eyes: PERRLA, NO DISCHARGE, EOMI, SCLERAE NORMAL, CONJUNCTIVAE NORMAL ENT: NORMAL NASAL EXAM, NORMAL MOUTH EXAM (upper denture, moist mucous membranes, Mallampati 1, no erythema or exudate) Neck: NORMAL RANGE OF MOTION, NO TENDERNESS, TRACHEA MIDLINE, NO STRIDOR Respiratory: other (good air entry bilaterally with fine Velcro crackles, mildly tachypneic, no respiratory distress or use of accessory muscles of respiration) Cardiovasular: REGULAR RATE/RHYTHM, NORMAL S1S2 Abdomen: NON TENDER, NORMAL BOWEL SOUNDS, NO REBOUND Back: other Upper Extremities: other (clubbing noted bilaterally) Edema: Bilateral LE (1+) Pulses: dorsalis pedis (R) (2+), dorsalis pedis (L) (2+) Neuro: ALERT, ORIENTED x 3, NORMAL MOTOR EXAM, NORMAL SENSATION Labs reviewed. Urine cx--no growth Blood cx-gram positive cocci in one bottle Imaging reviewed Medications reviewed and are listed. Assessment & Plan Acute on chronic hypoxic respiratory failure COPD Pulmonary fibrosis Patient has acute on chronic hypoxic respiratory failure with a combination of COPD/pulmonary fibrosis. She is on chronic long-term oxygen therapy and has end -stage disease. She is clinically improving. She is back on nasal canula -keep SaO2 btw 88-92% -Titrate NC as tolerated. She is usually on 5-6 L at home. -chest PT, Mucomyst 3 ML twice a day, flutter valve -Continue with empiric antibiotics -Continue with Atrovent as well as Xopenex nebulizers every 6 hours -Taper steroids slowly over next 14 days -Continue nasal spray for nasal congestion -Continue DVT prophylaxis Blood cx--were positive in one bottle from admission. Most likely a contaminate , but would repeat. Will sign off case today. Please reconsult if you have any further questions or concerns. Data Medications: Current Inpatient Medications Medications (Trade) Dose Ordered Sig/Bishnu Route Start Time Stop Time Status Last Admin Dose Admin Enoxaparin Sodium (Lovenox Inj) 40 mg Q24H SC 05/23/17 21:00 06/22/17 20:59 05/26/17 21:15 40 MG Acetaminophen (Tylenol Tab) 650 mg Q4H PRN PO 05/23/17 17:45 06/22/17 17:44 Ondansetron HCl (Zofran Inj) 4 mg Q6H PRN IV 05/23/17 17:45 06/22/17 17:44 Polyethylene (Miralax Powder Packet) 17 gm DAILY PRN PO 05/23/17 17:45 06/22/17 17:44 Furosemide 40 mg/ Syringe 4 ml @ 4 mls/min BID IV 05/23/17 21:00 06/22/17 20:59 05/27/17 09:43 4 MLS/MIN Potassium Chloride (Klor-Con Tab) 20 meq BID PO 05/23/17 21:00 06/22/17 20:59 05/27/17 09:44 20 MEQ Aspirin (Ecotrin Tab) 81 mg DAILY PO 05/24/17 09:00 06/23/17 08:59 05/26/17 21:10 81 MG Calcium/Vitamin D (Caltrate Plus Tab) 1 tab BID PO 05/23/17 21:00 06/22/17 20:59 05/27/17 09:43 1 TAB Famotidine (Pepcid Tab) 20 mg QPM PO 05/23/17 21:00 06/22/17 20:59 05/26/17 21:08 20 MG Metoprolol Tartrate (Lopressor Tab) 25 mg BID PO 05/23/17 21:00 06/22/17 20:59 05/27/17 09:44 25 MG Nortriptyline HCl (Pamelor Cap) 25 mg QAM PO 05/24/17 09:00 06/23/17 08:59 05/26/17 21:12 25 MG Rosuvastatin Calcium (Crestor Tab) 20 mg QPM PO 05/23/17 21:00 06/22/17 20:59 05/26/17 21:10 20 MG Sodium Chloride ([place] Nasal [place]) 2 sprays BID NA 05/23/17 21:00 06/22/17 20:59 05/27/17 09:00 2 SPRAYS Sertraline HCl (Zoloft Tab) 100 mg HS PO 05/23/17 21:00 06/22/17 20:59 05/26/17 21:12 100 MG Miscellaneous Information (Order Awaiting Action) 1 ea QS N/A 05/24/17 00:00 06/23/17 00:00 Vancomycin HCl (Consult) 1 ea UD PRN N/A 05/23/17 18:15 06/22/17 18:14 Acetylcysteine (Mucomyst 20% Inh Soln) 3 ml BIDR INH 05/23/17 21:00 06/22/17 20:59 05/27/17 07:38 3 ML Methylprednisolone Sodium Succinate 40 mg/Syringe 0.64 ml @ 1.5 mls/min BID IV 05/23/17 21:00 06/22/17 20:59 05/27/17 09:43 1.5 MLS/MIN Ipratropium [place] (Atrovent 0.02% 0.5MG/2.5ML Neb) 0.5 mg Q6R INH 05/23/17 21:00 06/22/17 20:59 05/27/17 07:24 0.5 MG Levalbuterol (Xopenex 1.25MG/ 0.5ML Neb) 1.25 mg Q6R INH 05/23/17 21:00 06/22/17 20:59 05/27/17 07:24 1.25 MG Piperacillin Sod/ Tazobactam Sod (Consult) 1 ea UD PRN N/A 05/23/17 23:15 06/22/17 23:14 Piperacillin Sod/ Tazobactam Sod 3.375 gm/Dextrose 115 ml @ 28.75 mls/ hr Q8H IV 05/24/17 04:00 05/31/17 03:59 05/27/17 04:29 28.75 MLS/HR Non-Formulary Medication (Non-Formulary Patient'S Own Med) 1 ea HS PO 05/24/17 21:00 06/23/17 20:59 05/26/17 21:16 1 EA Vancomycin HCl 1000 mg/Sodium Chloride 270 ml @ 125 mls/hr Q10H IV 05/25/17 14:00 05/31/17 15:59 05/27/17 06:12 125 MLS/HR Azithromycin (Zithromax Tab) 500 mg QAM PO 05/27/17 09:00 06/03/17 08:59 05/26/17 21:06 500 MG Vital Signs: Date Time Temp Pulse Resp B/P (MAP) Pulse Ox O2 Delivery O2 Flow Rate FiO2 05/27/17 07:56 36.7 79 18 120/66 (84) 92 Tent 05/27/17 07:24 82 16 92 Nasal Cannula 6.0 05/27/17 04:00 Nasal Cannula 6.0 05/27/17 04:00 36.6 82 17 111/58 (75) 92 Nasal Cannula 6.0 05/27/17 01:38 83 16 93 Nasal Cannula 6.0 05/27/17 00:00 Nasal Cannula 6.0 05/27/17 00:00 36.7 83 21 110/64 (79) 90 Nasal Cannula 6.0 05/26/17 20:22 36.3 91 22 114/65 (81) 89 Nasal Cannula 6.0 05/26/17 20:00 Nasal Cannula 6.0 05/26/17 18:59 90 16 90 Nasal Cannula 6.0 05/26/17 16:00 Nasal Cannula 05/26/17 14:58 36.5 77 22 105/68 (80) 92 Nasal Cannula 6.0 05/26/17 14:11 75 18 91 Nasal Cannula 5.0 05/26/17 12:04 36.6 82 18 117/69 (85) 90 Nasal Cannula 5.0 05/26/17 12:00 Oxymask Laboratory Results: Last 24 Hours Test 05/26/17 19:31 05/27/17 06:11 Vancomycin Level Trough 21.8 mcg/ml White Blood Count 11.71 K/uL Red Blood Count 3.57 M/uL Hemoglobin 10.5 g/dL Hematocrit 32.8 % Mean Corpuscular Volume 91.9 fL Mean Corpuscular Hemoglobin 29.4 pg Mean Corpuscular Hemoglobin Concent 32.0 g/dl Platelet Count 200 K/uL Mean Platelet Volume 9.6 fL Neutrophils (%) (Auto) 73.2 % Lymphocytes (%) (Auto) 17.3 % Monocytes (%) (Auto) 7.7 % Eosinophils (%) (Auto) 0.2 % Basophils (%) (Auto) 0.1 % Neutrophils # (Auto) 8.57 K/uL Lymphocytes # (Auto) 2.03 K/uL Monocytes # (Auto) 0.90 K/uL Eosinophils # (Auto) 0.02 K/uL Basophils # (Auto) 0.01 K/uL RDW Standard Deviation 55.9 fL RDW Coefficient of Variation 16.7 % Immature Granulocyte % (Auto) 1.5 % Immature Granulocyte # (Auto) 0.18 K/uL Sodium Level 135 mmol/L Potassium Level 4.0 mmol/L Chloride Level 100 mmol/L Carbon Dioxide Level 31 mmol/L Anion Gap 4.0 mmol/L Blood Urea Nitrogen 23 mg/dl Creatinine 0.84 mg/dl Est Creatinine Clear Calc Drug Dose 62.2 ml/min Estimated GFR () 86.3 Estimated GFR (Non- 74.5 BUN/Creatinine Ratio 27.7 Random Glucose 134 mg/dl Calcium Level 8.3 mg/dl Magnesium Level 2.0 mg/dl
--- NOTE | 2017-05-27 12:52 | DIAGNOSTIC IMAGING REPORT ---
CHEST ONE VIEW PORTABLE HISTORY: 61 years-old Female congestion acute congestion with hypoxia. Follow-up study. COMPARISON: Chest radiograph 05/23/2017, CTA of the chest 04/17/2007, chest radiograph 03/31/2017. TECHNIQUE: Portable upright AP view of the chest FINDINGS: Cardiac silhouette is within normal limits. There is atherosclerosis of the aorta. There is no pneumothorax or pleural effusion. Severe emphysema is again noted with chronic diffuse reticular opacities. There is improved aeration of the lungs from prior study. The bones are grossly intact. IMPRESSION: 1. Improved aeration of the bilateral lungs. 2. Background emphysema with chronic interstitial opacities. Superimposed mild pulmonary edema or pneumonitis would be difficult to exclude. The above report was generated using voice recognition software. It may contain grammatical, syntax or spelling errors. Electronically signed by: Chad Gabriel M.D. 05/27/2017 12:51 PM Dictated Date/Time: 05/27/2017 12:48 PM
--- NOTE | 2017-05-27 15:14 | Progress Note ---
Internal Med Progress Note Date of Service: May 27, 2017. Provider Documentation: SUBJECTIVE: sob and cough improving no pain no nausea eating ok OBJECTIVE: Vital Signs-as noted below Exam: General-alert and oriented. Not in distress ENT-normal hearing Neck-no neck masses Lungs-cta b/l no wheezing mild bibasilar crackles Heart-s1 and s2 heard regular rhythm, no murmurs Abdomen-soft bowel sounds present non tender no distension Extremities lower edema present no erythema Neuro-alert and oriented moves extremities Lab data as noted below. ASSESSMENT & PLAN: This is a 61yo female with a PMH of chronic respiratory failure 2/2 COPD, pulmonary fibrosis (on home O2), R sided HF, HTN who presents in acute respiratory failure after home health nurse found her to be hypoxic at 57%. Acute on chronic hypoxic respiratory failure: acute copd and ILD flare Health care pneumonia- possible gm negative or mrsa Baseline of 88% on chronic O2 therapy at home (5L [place]) Found to be hypoxic at 57% prior to arrival in ED initially required NRB mask later was on high flow oxygen for couple of day on iv steroids, iv Levaquin and vancomycin and Zosyn Chest PT, Mucomyst 3 ML twice a day, flutter valve as per pulmonary currently saturating ok on 6lts will change iv Levaquin to po azithromycin to continue same for now will taper steroids in am Sepsis 2/2 PNA, UTI: on abx as above will f/u cx one bottle gm positive cocci-contaminant? await final cx and repeat cx Acute on chronic R-sided Heart Failure, Preserved Ef: secondary underlying pulmonary disease Echo (04/10) with preserved EF: 65-70% but elevated R ventricular systolic pressure on iv Lasix 40mg bid f/u i/o's and daily weights continue same for now cxr improving HTN: Stable on Lasix, metoprolol will monitor Code staus level 1 DVT PROPHYLAXIS Lovenox DISPOSITION monitor in tele pt/ot when more stable social service for d/c planning Vital Signs: Date Time Temp Pulse Resp B/P (MAP) Pulse Ox O2 Delivery O2 Flow Rate FiO2 05/27/17 15:00 36.7 85 20 99/56 (70) 91 Nasal Cannula 6.0 05/27/17 14:42 80 16 91 Nasal Cannula 6.0 05/27/17 12:00 Nasal Cannula 05/27/17 11:57 36.3 87 18 118/73 (88) 100 Nasal Cannula 7.0 05/27/17 08:00 Nasal Cannula 05/27/17 07:56 36.7 79 18 120/66 (84) 92 Tent 05/27/17 07:24 82 16 92 Nasal Cannula 6.0 05/27/17 04:00 Nasal Cannula 6.0 05/27/17 04:00 36.6 82 17 111/58 (75) 92 Nasal Cannula 6.0 05/27/17 01:38 83 16 93 Nasal Cannula 6.0 05/27/17 00:00 Nasal Cannula 6.0 05/27/17 00:00 36.7 83 21 110/64 (79) 90 Nasal Cannula 6.0 05/26/17 20:22 36.3 91 22 114/65 (81) 89 Nasal Cannula 6.0 05/26/17 20:00 Nasal Cannula 6.0 05/26/17 18:59 90 16 90 Nasal Cannula 6.0 05/26/17 16:00 Nasal Cannula Lab Results: Results Past 24 Hours Test 05/26/17 19:31 05/27/17 06:11 Range/Units Vancomycin Level Trough 21.8 SEE COMMENT mcg/ml White Blood Count 11.71 4.8-10.8 K/uL Red Blood Count 3.57 4.2-5.4 M/uL Hemoglobin 10.5 12.0-16.0 g/dL Hematocrit 32.8 37-47 % Mean Corpuscular Volume 91.9 80-100 fL Mean Corpuscular Hemoglobin 29.4 25-34 pg Mean Corpuscular Hemoglobin Concent 32.0 32-36 g/dl Platelet Count 200 130-400 K/uL Mean Platelet Volume 9.6 7.4-10.4 fL Neutrophils (%) (Auto) 73.2 % Lymphocytes (%) (Auto) 17.3 % Monocytes (%) (Auto) 7.7 % Eosinophils (%) (Auto) 0.2 % Basophils (%) (Auto) 0.1 % Neutrophils # (Auto) 8.57 1.4-6.5 K/uL Lymphocytes # (Auto) 2.03 1.2-3.4 K/uL Monocytes # (Auto) 0.90 0.11-0.59 K/uL Eosinophils # (Auto) 0.02 0-0.5 K/uL Basophils # (Auto) 0.01 0-0.2 K/uL RDW Standard Deviation 55.9 36.4-46.3 fL RDW Coefficient of Variation 16.7 11.5-14.5 % Immature Granulocyte % (Auto) 1.5 % Immature Granulocyte # (Auto) 0.18 0.00-0.02 K/uL Sodium Level 135 136-145 mmol/L Potassium Level 4.0 3.5-5.1 mmol/L Chloride Level 100 98-107 mmol/L Carbon Dioxide Level 31 21-32 mmol/L Anion Gap 4.0 3-11 mmol/L Blood Urea Nitrogen 23 7-18 mg/dl Creatinine 0.84 0.60-1.20 mg/dl Est Creatinine Clear Calc Drug Dose 62.2 ml/min Estimated GFR () 86.3 Estimated GFR (Non- 74.5 BUN/Creatinine Ratio 27.7 10-20 Random Glucose 134 70-99 mg/dl Calcium Level 8.3 8.5-10.1 mg/dl Magnesium Level 2.0 1.8-2.4 mg/dl Microbiology Results 05/27/17 Blood Culture, Ordered Pending 05/27/17 Blood Culture, Ordered Pending
[2017-05-27] MEDS: ENOXAPARIN 40 MG/0.4 ML SYR SC SCH (20:38)
[2017-05-27] MEDS: FAMOTIDINE 20 MG TAB PO SCH (20:39)
[2017-05-27] MEDS: AZITHROMYCIN 250 MG TAB PO SCH (20:39)
[2017-05-27] MEDS: ROSUVASTATIN CALCIUM 20 MG TAB PO SCH (20:40)
[2017-05-27] MEDS: ASPIRIN 81 MG ECTAB PO SCH (20:40)
[2017-05-27] MEDS: SERTRALINE HCL 50 MG TAB PO SCH (20:41)
[2017-05-27] MEDS: NORTRIPTYLINE HCL 25 MG CAP PO SCH (20:41)
[2017-05-27] MEDS: [UNRECOGNIZED DRUG - OTHER] PO SCH (20:42)
[2017-05-28] VITALS (10 sets, daily range): BP systolic 104–146; BP diastolic 59–83; PULSE 77–91; TEMP 36.4–36.8; O2SAT 90–96
[2017-05-28] MEDS: LEVALBUTEROL 1.25MG/0.5ML NEB INH SCH ×4 (01:42→18:53)
[2017-05-28] MEDS: IPRATROPIUM BROMIDE NEB SOLN 0.02% 2.5 ML VIAL INH SCH ×4 (01:42→18:53)
[2017-05-28] MEDS: VANCOMYCIN INJ 1,000 MG in SODIUM CHLORIDE 0.9% 250ML 250 ML IV SCH ×3 (02:35→21:28)
[2017-05-28] MEDS: PIPERACILL/TAZOBAC IV 3.375 GM in DEXTROSE 5% 100ML IV SCH ×3 (04:47→21:27)
[2017-05-28 07:01] LABS: BASO % 0.1 %; BASO ABS # 0.01 K/uL (0-0.2); COMPLETE YES; EOS % 0.6 %; HEMATOCRIT 33.8 % (37-47); IG% 2.5 %; LYMPH % 17.5 %; LYMPH ABS # 2.45 K/uL (1.2-3.4); MEAN CELL VOLUME 93.1 fL (80-100); MEAN CORPUSCULAR HEMOGLOBIN 28.7 pg (25-34); MEAN CORPUSCULAR HGB CONC 30.8 g/dl (32-36); MEAN PLATELET VOLUME 9.2 fL (7.4-10.4); MONO % 8.9 %; NEUT % 70.4 %; PLATELET COUNT 218 K/uL (130-400); RED BLOOD COUNT 3.63 M/uL (4.2-5.4)
[2017-05-28] MEDS: ACETYLCYSTEINE 20% INHAL SOLN ***DISPENSED BY RESP. INH SCH ×2 (07:14→18:53)
[2017-05-28] MEDS: METHYLPREDNISOLONE IV 40 MG in SYRINGE 0 ML IV SCH ×2 (07:45→21:27)
[2017-05-28] MEDS: CALCIUM 600MG + VIT D 400 IU TAB PO SCH ×2 (07:46→21:24)
[2017-05-28] MEDS: POTASSIUM CHLORIDE 20 MEQ TABCR PO SCH ×2 (07:46→21:24)
[2017-05-28] MEDS: SODIUM CHLORIDE 0.65% NA SOLN 45 ML (OCEAN) SCH ×2 (07:46→21:26)
[2017-05-28] MEDS: FUROSEMIDE INJ 40 MG in SYRINGE 0 ML IV SCH ×2 (07:46→21:26)
[2017-05-28] MEDS: METOPROLOL TARTRATE 25 MG TAB PO SCH ×2 (07:47→21:24)
[2017-05-28 07:53] LABS: BUN/CREATININE RATIO 31.4 (10-20); CREATININE 0.7 mg/dl (0.60-1.20); MAGNESIUM 2.1 mg/dl (1.8-2.4); POTASSIUM 4.3 mmol/L (3.5-5.1)
[2017-05-28] MEDS ORDERED: VANCOMYCIN TROUGH SCH (11:30)
[2017-05-28] MEDS: ACETAMINOPHEN 325 MG TAB PO PRN (15:34)
--- NOTE | 2017-05-28 17:05 | Progress Note ---
Internal Med Progress Note Date of Service: May 28, 2017. Provider Documentation: SUBJECTIVE: feeling better sob improving slept fine eating ok no bowel movement today afebrile OBJECTIVE: Vital Signs-as noted below Exam: General-alert and oriented. Not in distress ENT-normal hearing Neck-no neck masses Lungs-cta b/l no wheezing mild bibasilar crackles Heart-s1 and s2 heard regular rhythm, no murmurs Abdomen-soft bowel sounds present non tender no distension Extremities lower edema present no erythema Neuro-alert and oriented moves extremities Lab data as noted below. ASSESSMENT & PLAN: This is a 61yo female with a PMH of chronic respiratory failure 2/2 COPD, pulmonary fibrosis (on home O2), R sided HF, HTN who presents in acute respiratory failure after home health nurse found her to be hypoxic at 57%. Acute on chronic hypoxic respiratory failure: acute copd and ILD flare Health care pneumonia- possible gm negative or mrsa Baseline of 88% on chronic O2 therapy at home (5L [place]) Found to be hypoxic at 57% prior to arrival in ED initially required NRB mask later was on high flow oxygen for couple of day on iv steroids, iv Levaquin and vancomycin and Zosyn#5 Chest PT, Mucomyst 3 ML twice a day, flutter valve as per pulmonary currently saturating ok on 6lts will change iv Levaquin to po azithromycin will taper steroids and complete 10days of abx Sepsis 2/2 PNA, UTI: on abx as above will f/u cx one bottle gm positive cocci-contaminant? await final cx and repeat cx Acute on chronic R-sided Heart Failure, Preserved Ef: secondary underlying pulmonary disease Echo (04/10) with preserved EF: 65-70% but elevated R ventricular systolic pressure on iv Lasix 40mg bid f/u i/o's and daily weights continue same for now cxr improving mostly needs higher doses of Lasix at discharge HTN: Stable on Lasix, metoprolol will monitor Code staus level 1 DVT PROPHYLAXIS Lovenox DISPOSITION monitor in tele pt/ot when more stable needs placement social service for d/c planning Vital Signs: Date Time Temp Pulse Resp B/P (MAP) Pulse Ox O2 Delivery O2 Flow Rate FiO2 05/28/17 16:00 Nasal Cannula 6.0 05/28/17 15:29 36.7 86 18 106/63 (77) 91 Nasal Cannula 7.0 05/28/17 13:22 83 16 92 Nasal Cannula 6.0 05/28/17 12:00 Nasal Cannula 6.0 05/28/17 11:53 36.4 85 16 108/75 (86) 92 Nasal Cannula 05/28/17 08:20 36.4 90 19 104/60 (75) 90 Nasal Cannula 05/28/17 08:00 Nasal Cannula 6.0 90 05/28/17 07:14 77 16 94 Nasal Cannula 6.0 05/28/17 04:00 Nasal Cannula 6.0 05/28/17 03:58 36.7 84 18 146/83 (104) 96 Nasal Cannula 7.0 05/28/17 01:42 84 14 94 Nasal Cannula 6.0 05/27/17 23:59 Nasal Cannula 6.0 05/27/17 23:45 36.6 84 18 126/76 (93) 91 Nasal Cannula 6.0 05/27/17 21:23 Nasal Cannula 6.0 05/27/17 19:10 36.6 95 24 126/75 (92) 89 Nasal Cannula 6.0 05/27/17 18:45 88 16 90 Nasal Cannula 6.0 Lab Results: Results Past 24 Hours Test 05/28/17 06:33 05/28/17 11:39 Range/Units White Blood Count 14.00 4.8-10.8 K/uL Red Blood Count 3.63 4.2-5.4 M/uL Hemoglobin 10.4 12.0-16.0 g/dL Hematocrit 33.8 37-47 % Mean Corpuscular Volume 93.1 80-100 fL Mean Corpuscular Hemoglobin 28.7 25-34 pg Mean Corpuscular Hemoglobin Concent 30.8 32-36 g/dl Platelet Count 218 130-400 K/uL Mean Platelet Volume 9.2 7.4-10.4 fL Neutrophils (%) (Auto) 70.4 % Lymphocytes (%) (Auto) 17.5 % Monocytes (%) (Auto) 8.9 % Eosinophils (%) (Auto) 0.6 % Basophils (%) (Auto) 0.1 % Neutrophils # (Auto) 9.86 1.4-6.5 K/uL Lymphocytes # (Auto) 2.45 1.2-3.4 K/uL Monocytes # (Auto) 1.25 0.11-0.59 K/uL Eosinophils # (Auto) 0.08 0-0.5 K/uL Basophils # (Auto) 0.01 0-0.2 K/uL RDW Standard Deviation 56.8 36.4-46.3 fL RDW Coefficient of Variation 16.7 11.5-14.5 % Immature Granulocyte % (Auto) 2.5 % Immature Granulocyte # (Auto) 0.35 0.00-0.02 K/uL Sodium Level 135 136-145 mmol/L Potassium Level 4.3 3.5-5.1 mmol/L Chloride Level 99 98-107 mmol/L Carbon Dioxide Level 32 21-32 mmol/L Anion Gap 4.0 3-11 mmol/L Blood Urea Nitrogen 22 7-18 mg/dl Creatinine 0.70 0.60-1.20 mg/dl Est Creatinine Clear Calc Drug Dose 74.9 ml/min Estimated GFR () 107.6 Estimated GFR (Non- 92.9 BUN/Creatinine Ratio 31.4 10-20 Random Glucose 120 70-99 mg/dl Calcium Level 9.0 8.5-10.1 mg/dl Magnesium Level 2.1 1.8-2.4 mg/dl Vancomycin Level Trough 23.7 SEE COMMENT mcg/ml
[2017-05-28] MEDS: FAMOTIDINE 20 MG TAB PO SCH (21:24)
[2017-05-28] MEDS: ROSUVASTATIN CALCIUM 20 MG TAB PO SCH (21:24)
[2017-05-28] MEDS: SERTRALINE HCL 50 MG TAB PO SCH (21:24)
[2017-05-28] MEDS: ENOXAPARIN 40 MG/0.4 ML SYR SC SCH (21:26)
[2017-05-28] MEDS: AZITHROMYCIN 250 MG TAB PO SCH (21:26)
[2017-05-28] MEDS: [UNRECOGNIZED DRUG - OTHER] PO SCH (21:27)
[2017-05-29] VITALS (10 sets, daily range): BP systolic 95–142; BP diastolic 56–79; PULSE 76–105; TEMP 36.4–36.7; O2SAT 89–94
[2017-05-29] MEDS: IPRATROPIUM BROMIDE NEB SOLN 0.02% 2.5 ML VIAL INH SCH ×4 (01:47→19:25)
[2017-05-29] MEDS: LEVALBUTEROL 1.25MG/0.5ML NEB INH SCH ×4 (01:47→19:25)
[2017-05-29] MEDS ORDERED: VANCOMYCIN INJ 1,000 MG in SODIUM CHLORIDE 0.9% 250ML 250 ML IV SCH (02:00)
[2017-05-29] MEDS: PIPERACILL/TAZOBAC IV 3.375 GM in DEXTROSE 5% 100ML IV SCH ×3 (04:14→20:51)
[2017-05-29 06:34] LABS: BASO % 0.1 %; BASO ABS # 0.02 K/uL (0-0.2); COMPLETE YES; EOS % 0.2 %; HEMATOCRIT 32.5 % (37-47); IG% 4.8 %; LYMPH % 13.6 %; LYMPH ABS # 2.24 K/uL (1.2-3.4); MEAN CELL VOLUME 93.1 fL (80-100); MEAN CORPUSCULAR HEMOGLOBIN 29.8 pg (25-34); MEAN PLATELET VOLUME 9.4 fL (7.4-10.4); MONO % 5.7 %; NEUT % 75.6 %; PLATELET COUNT 223 K/uL (130-400); RED BLOOD COUNT 3.49 M/uL (4.2-5.4); WHITE BLOOD COUNT 16.53 K/uL (4.8-10.8)
[2017-05-29 07:09] LABS: BUN/CREATININE RATIO 27.4 (10-20); CALCIUM 8.6 mg/dl (8.5-10.1); CREATININE 0.69 mg/dl (0.60-1.20); MAGNESIUM 2.1 mg/dl (1.8-2.4); POTASSIUM 3.9 mmol/L (3.5-5.1)
[2017-05-29] MEDS: ACETYLCYSTEINE 20% INHAL SOLN ***DISPENSED BY RESP. INH SCH ×2 (07:18→19:25)
[2017-05-29] MEDS: NORTRIPTYLINE HCL 25 MG CAP PO SCH (08:13)
[2017-05-29] MEDS: ASPIRIN 81 MG ECTAB PO SCH (08:13)
[2017-05-29] MEDS: METHYLPREDNISOLONE IV 40 MG in SYRINGE 0 ML IV SCH (08:13)
[2017-05-29] MEDS: POTASSIUM CHLORIDE 20 MEQ TABCR PO SCH ×2 (08:13→20:57)
[2017-05-29] MEDS: CALCIUM 600MG + VIT D 400 IU TAB PO SCH ×2 (08:13→20:54)
[2017-05-29] MEDS: SODIUM CHLORIDE 0.65% NA SOLN 45 ML (OCEAN) SCH ×2 (08:14→20:57)
[2017-05-29] MEDS: VANCOMYCIN INJ 1,000 MG in SODIUM CHLORIDE 0.9% 250ML 250 ML IV SCH (08:17)
--- NOTE | 2017-05-29 11:17 | Pharmacy Progress Note ---
Pharmacy Abx Dose Progress Nt Date of Service May 29, 2017. Pharmacy Dosing Scope The patient is currently receiving the following antimicrobial agents per Pharmacy consult: Vancomycin 1000 mg IV every 12 hours Objective Height (Feet): 5 Height (Inches): 3.00 Weight (Kilograms): 67.000 Vital Signs (Past 12Hrs) Vital Signs Past 12 Hours Date Time Temp Pulse Resp B/P (MAP) Pulse Ox O2 Delivery O2 Flow Rate FiO2 05/29/17 08:25 36.6 86 20 95/60 (72) 90 Nasal Cannula 7.0 05/29/17 08:00 Nasal Cannula 6.0 05/29/17 07:08 86 16 91 Nasal Cannula 6.0 05/29/17 04:00 Nasal Cannula 6.0 05/29/17 03:35 36.4 78 18 112/58 (76) 93 Nasal Cannula 6.0 05/29/17 01:48 77 16 90 Nasal Cannula 6.0 05/28/17 23:59 Nasal Cannula 6.0 05/28/17 23:29 36.8 91 18 125/70 (88) 90 Nasal Cannula 6.0 Lab Results (24Hrs) Laboratory Tests (24 Hours) Test 05/29/17 06:17 White Blood Count 16.53 K/uL (4.8-10.8) H Red Blood Count 3.49 M/uL (4.2-5.4) L Hemoglobin 10.4 g/dL (12.0-16.0) L Hematocrit 32.5 % (37-47) L Mean Corpuscular Volume 93.1 fL (80-100) Mean Corpuscular Hemoglobin 29.8 pg (25-34) Mean Corpuscular Hemoglobin Concent 32.0 g/dl (32-36) Platelet Count 223 K/uL (130-400) Mean Platelet Volume 9.4 fL (7.4-10.4) Neutrophils (%) (Auto) 75.6 % Lymphocytes (%) (Auto) 13.6 % Monocytes (%) (Auto) 5.7 % Eosinophils (%) (Auto) 0.2 % Basophils (%) (Auto) 0.1 % Neutrophils # (Auto) 12.49 K/uL (1.4-6.5) H Lymphocytes # (Auto) 2.24 K/uL (1.2-3.4) Monocytes # (Auto) 0.94 K/uL (0.11-0.59) H Eosinophils # (Auto) 0.04 K/uL (0-0.5) Basophils # (Auto) 0.02 K/uL (0-0.2) Micro Results Date/Time Source Procedure Growth Status 05/27/17 15:43 Blood Blood Culture - Preliminary NO GROWTH TO DATE. Resulted 05/27/17 15:32 Blood Blood Culture - Preliminary NO GROWTH TO DATE. Resulted 05/23/17 13:20 Blood Blood Culture - Final Micrococcus Species Complete 05/23/17 13:15 Blood Blood Culture - Final NO GROWTH Complete 05/23/17 14:10 Nasal MRSA DNA Surveillance Screen - Final Specimen Positive for MRSA by DNA Probe Complete 05/23/17 19:30 Urine , Clean Catch Urine Culture - Final NO GROWTH - LESS THAN 1,000 COLONIES/ML Complete Risk Factors for Resistance * Hospitalization for 48 hours or more within the past 90 days - March 2017 * History of MRSA Assessment & Plan Assessment 61 year old female receiving Vancomycin IV for treatment of sepsis, pneumonia Day # 7 of antimicrobial therapy Trough level of 23.7 mcg/mL yesterday was supratherapeutic, at that time dose was changed by pharmacy to 1g IV Q12H, but the 1g IV Q10H dose was not discontinued. This resulted in patient receiving 1gram doses at the following times: 1200, 2200, and at 0200 and 0800 today. Plan Vancomycin IV * Patient will continue to be supratherapeutic, placed both orders ON HOLD at this time. * Random level ordered for: 05/30/17 with AM labs * Will re-evaluate level at that time and begin re-dosing at 1g IV Q12H when patient's level is therapeutic. * Dr Currie notified Pharmacy will continue to follow and will adjust dose/frequency as necessary. Thank you.
--- NOTE | 2017-05-29 11:22 | Progress Note ---
Internal Med Progress Note Date of Service: May 29, 2017. Provider Documentation: SUBJECTIVE: The patient was seen and examined Feels a lot better today Denies any CP,Palpitation,or any SOB Willing to participate in PT/OT OBJECTIVE: Vital Signs-as noted below Exam: General-Minimal SOB at rest Eyes-normal ENT-normal Neck-supple Lungs-decreased breath sound bilaterally Minimal crackles at the bases Heart-Regular,no murmur appreciated Abdomen-Benign,no masses,bowel sound present Extremities-No edema Neuro-AAOx3 generally weak and lethargic Lab data as noted below. ASSESSMENT & PLAN: This is a 61yo female with a PMH of chronic respiratory failure secondary to COPD, pulmonary fibrosis (on home O2), R sided HF, HTN who presents in acute respiratory failure after home health nurse found her to be hypoxic at 57% .Oxygen saturation Acute on chronic hypoxic respiratory failure:Pulmonary Fibrosis with COPD Health care pneumonia- possible gm negative or MRSA Baseline of 88% on chronic O2 therapy at home (5L [place]) Found to be hypoxic at 57% prior to arrival in ED,initially required NRB mask Has been on iv steroids, IV Levaquin and vancomycin and Zosyn day # 6 Chest PT, Mucomyst 3 ML twice a day, flutter valve as per pulmonary Levaquin has been changed to po azithromycin Appreciate Pulmonary input Steroid changed to oral Prednisone Antibiotics to be continued for ~ 10 days Acute on chronic R-sided Heart Failure, Preserved EF Secondary underlying pulmonary disease Echo (04/10) with preserved EF: 65-70% but elevated R ventricular systolic pressure Was on iv Lasix 40mg bid Changed to 20 mg orally from 05/30/17 May need to increase the dose of Lasix on discharge Sepsis 2/2 PNA, UTI: On abx as above One bottle gm positive cocci-contaminant? Final cx and repeat cx-Negative HTN: Stable on Lasix, metoprolol will monitor-remains on the lower side DVT PROPHYLAXIS Lovenox Code staus level 1 DISPOSITION monitor in tele pt/ot when more stable needs placement social service for d/c planning Vital Signs: Date Time Temp Pulse Resp B/P (MAP) Pulse Ox O2 Delivery O2 Flow Rate FiO2 05/29/17 08:25 36.6 86 20 95/60 (72) 90 Nasal Cannula 7.0 05/29/17 08:00 Nasal Cannula 6.0 05/29/17 07:08 86 16 91 Nasal Cannula 6.0 05/29/17 04:00 Nasal Cannula 6.0 05/29/17 03:35 36.4 78 18 112/58 (76) 93 Nasal Cannula 6.0 05/29/17 01:48 77 16 90 Nasal Cannula 6.0 05/28/17 23:59 Nasal Cannula 6.0 05/28/17 23:29 36.8 91 18 125/70 (88) 90 Nasal Cannula 6.0 05/28/17 20:00 Nasal Cannula 6.0 05/28/17 19:07 36.8 89 22 112/59 (76) 92 Nasal Cannula 7.0 05/28/17 18:53 84 16 95 Nasal Cannula 6.0 05/28/17 16:00 Nasal Cannula 6.0 05/28/17 15:29 36.7 86 18 106/63 (77) 91 Nasal Cannula 7.0 05/28/17 13:22 83 16 92 Nasal Cannula 6.0 05/28/17 12:00 Nasal Cannula 6.0 05/28/17 11:53 36.4 85 16 108/75 (86) 92 Nasal Cannula Lab Results: Results Past 24 Hours Test 05/28/17 11:39 05/29/17 06:17 Range/Units Vancomycin Level Trough 23.7 SEE COMMENT mcg/ml White Blood Count 16.53 4.8-10.8 K/uL Red Blood Count 3.49 4.2-5.4 M/uL Hemoglobin 10.4 12.0-16.0 g/dL Hematocrit 32.5 37-47 % Mean Corpuscular Volume 93.1 80-100 fL Mean Corpuscular Hemoglobin 29.8 25-34 pg Mean Corpuscular Hemoglobin Concent 32.0 32-36 g/dl Platelet Count 223 130-400 K/uL Mean Platelet Volume 9.4 7.4-10.4 fL Neutrophils (%) (Auto) 75.6 % Lymphocytes (%) (Auto) 13.6 % Monocytes (%) (Auto) 5.7 % Eosinophils (%) (Auto) 0.2 % Basophils (%) (Auto) 0.1 % Neutrophils # (Auto) 12.49 1.4-6.5 K/uL Lymphocytes # (Auto) 2.24 1.2-3.4 K/uL Monocytes # (Auto) 0.94 0.11-0.59 K/uL Eosinophils # (Auto) 0.04 0-0.5 K/uL Basophils # (Auto) 0.02 0-0.2 K/uL RDW Standard Deviation 56.9 36.4-46.3 fL RDW Coefficient of Variation 16.6 11.5-14.5 % Immature Granulocyte % (Auto) 4.8 % Immature Granulocyte # (Auto) 0.80 0.00-0.02 K/uL Sodium Level 135 136-145 mmol/L Potassium Level 3.9 3.5-5.1 mmol/L Chloride Level 98 98-107 mmol/L Carbon Dioxide Level 32 21-32 mmol/L Anion Gap 5.0 3-11 mmol/L Blood Urea Nitrogen 19 7-18 mg/dl Creatinine 0.69 0.60-1.20 mg/dl Est Creatinine Clear Calc Drug Dose 77.7 ml/min Estimated GFR () 108.1 Estimated GFR (Non- 93.3 BUN/Creatinine Ratio 27.4 10-20 Random Glucose 138 70-99 mg/dl Calcium Level 8.6 8.5-10.1 mg/dl Magnesium Level 2.1 1.8-2.4 mg/dl
[2017-05-29] MEDS: METOPROLOL TARTRATE 25 MG TAB PO SCH ×2 (12:34→20:55)
[2017-05-29] MEDS: ROSUVASTATIN CALCIUM 20 MG TAB PO SCH (20:53)
[2017-05-29] MEDS: AZITHROMYCIN 250 MG TAB PO SCH (20:53)
[2017-05-29] MEDS: FAMOTIDINE 20 MG TAB PO SCH (20:54)
[2017-05-29] MEDS: [UNRECOGNIZED DRUG - OTHER] PO SCH (20:55)
[2017-05-29] MEDS: SERTRALINE HCL 50 MG TAB PO SCH (20:56)
[2017-05-29] MEDS: ENOXAPARIN 40 MG/0.4 ML SYR SC SCH (20:58)
[2017-05-30] VITALS (13 sets, daily range): BP systolic 96–127; BP diastolic 47–72; PULSE 82–104; TEMP 36.4–36.8; O2SAT 74–97
[2017-05-30] MEDS: IPRATROPIUM BROMIDE NEB SOLN 0.02% 2.5 ML VIAL INH SCH ×4 (01:59→19:10)
[2017-05-30] MEDS: LEVALBUTEROL 1.25MG/0.5ML NEB INH SCH ×4 (02:00→19:10)
[2017-05-30] MEDS: PIPERACILL/TAZOBAC IV 3.375 GM in DEXTROSE 5% 100ML IV SCH ×3 (04:50→19:46)
[2017-05-30 05:52] LABS: HEMATOCRIT 31.1 % (37-47); MEAN CORPUSCULAR HEMOGLOBIN 29.3 pg (25-34); MEAN CORPUSCULAR HGB CONC 31.8 g/dl (32-36); MEAN PLATELET VOLUME 9.7 fL (7.4-10.4); PLATELET COUNT 219 K/uL (130-400); RED BLOOD COUNT 3.38 M/uL (4.2-5.4)
[2017-05-30 06:24] LABS: CREATININE 0.5 mg/dl (0.60-1.20)
[2017-05-30] MEDS: ACETAMINOPHEN 325 MG TAB PO PRN (06:29)
[2017-05-30] MEDS: ACETYLCYSTEINE 20% INHAL SOLN ***DISPENSED BY RESP. INH SCH ×2 (07:02→19:10)
[2017-05-30] MEDS: SODIUM CHLORIDE 0.65% NA SOLN 45 ML (OCEAN) SCH ×2 (09:00→19:47)
--- NOTE | 2017-05-30 09:02 | DIAGNOSTIC IMAGING REPORT ---
CHEST ONE VIEW PORTABLE CLINICAL HISTORY: Pneumonia. COMPARISON STUDY: Chest radiograph May 27, 2017. FINDINGS: There is no pneumothorax or pleural effusion. Interstitial thickening persists. Bilateral opacities have slightly increased since exam of June 01, 2017. Cardiomediastinal silhouette is stable. Patient is rotated. IMPRESSION: Increase in interstitial thickening and bilateral airspace opacities. The findings may reflect pneumonia or pulmonary edema superimposed upon severe emphysema. Electronically signed by: Jimy Osei M.D. 05/30/2017 9:01 AM Dictated Date/Time: 05/30/2017 8:51 AM
[2017-05-30] MEDS: NORTRIPTYLINE HCL 25 MG CAP PO SCH (09:12)
[2017-05-30] MEDS: FUROSEMIDE 20 MG TAB PO SCH (09:13)
[2017-05-30] MEDS: CALCIUM 600MG + VIT D 400 IU TAB PO SCH ×2 (09:14→19:48)
[2017-05-30] MEDS: ASPIRIN 81 MG ECTAB PO SCH (09:14)
[2017-05-30] MEDS: POTASSIUM CHLORIDE 20 MEQ TABCR PO SCH ×2 (09:15→19:49)
--- NOTE | 2017-05-30 09:47 | Pharmacy Progress Note ---
Pharmacy Abx Dose Short Note Date of Service May 30, 2017. Assessment & Plan Assessment * 61 year old female receiving IV Vancomycin and Zosyn for treatment of PNA/ sepsis. * Day # 8 of antimicrobial therapy. Plan * Vancomycin * Random level of 13.4 mcg/mL is slightly subtherapeutic * Restart Vancomycin 1000mg IV q12h at this time * Goal trough level for PNA/sepsis : 15 to 20 mcg/mL * Vancomycin therapy will be completed tomorrow, unless re-ordered by provider. * No further levels have been ordered at this time. If vancomycin therapy is extended, will re-evaluate the need for additional monitoring. * Zosyn * Zosyn 4.5gm IV x1 dose, then * Zosyn 3.375gm IV q8h * Zosyn therapy will be completed tomorrow, unless re-ordered by provider. Pharmacy will continue to follow and will adjust dose/frequency as necessary. Thank you.
[2017-05-30] MEDS: VANCOMYCIN INJ 1,000 MG in SODIUM CHLORIDE 0.9% 250ML 250 ML IV SCH ×2 (10:40→21:58)
[2017-05-30] MEDS: METOPROLOL TARTRATE 25 MG TAB PO SCH ×2 (10:41→19:49)
--- NOTE | 2017-05-30 12:52 | Progress Note ---
Internal Med Progress Note Date of Service: May 30, 2017. Provider Documentation: SUBJECTIVE: The patient was seen and examined Clinically a lot better Wants to get out of the hospital OBJECTIVE: Vital Signs-as noted below Exam: General-No distress at rest Eyes-normal ENT-normal Neck-supple Lungs-decreased breath sound bilaterally Minimal crackles at the bases Heart-Regular,no murmur appreciated Abdomen-Benign,no masses,bowel sound present Extremities-Trace edema bilaterally Neuro-AAOx3 generally weak and lethargic Lab data as noted below. ASSESSMENT & PLAN: This is a 61yo female with a PMH of chronic respiratory failure secondary to COPD, pulmonary fibrosis (on home O2), R sided HF, HTN who presents in acute respiratory failure after home health nurse found her to be hypoxic at 57% .Oxygen saturation Acute on chronic hypoxic respiratory failure:Pulmonary Fibrosis with COPD Health care pneumonia- possible gm negative or MRSA Baseline of 88% on chronic O2 therapy at home (5L [place]) Found to be hypoxic at 57% prior to arrival in ED,initially required NRB mask Has been on iv steroids, IV Levaquin and vancomycin and Zosyn day # 6 Chest PT, Mucomyst 3 ML twice a day, flutter valve as per pulmonary Levaquin has been changed to po azithromycin Appreciate Pulmonary input Steroid changed to oral Prednisone Antibiotics to be continued for ~ 10 days CXR -seems worse Await pulmonary recommendation about antibiotic Acute on chronic R-sided Heart Failure, Preserved EF Secondary underlying pulmonary disease Echo (04/10) with preserved EF: 65-70% but elevated R ventricular systolic pressure Was on iv Lasix 40mg bid Changed to 20 mg orally from 05/30/17 May need to increase the dose of Lasix on discharge May need to increase the dose of Lasix Sepsis 2/2 PNA, UTI: On abx as above One bottle gm positive cocci-contaminant? Final cx and repeat cx-worse HTN: Stable on Lasix, metoprolol will monitor-remains on the lower side DVT PROPHYLAXIS Lovenox Code status level 1 DISPOSITION monitor in tele pt/ot when more stable needs placement social service for d/c planning Vital Signs: Date Time Temp Pulse Resp B/P (MAP) Pulse Ox O2 Delivery O2 Flow Rate FiO2 05/30/17 10:58 106/61 (76) 05/30/17 08:27 90 Nasal Cannula 6.0 05/30/17 08:12 36.4 92 20 96/53 (67) 90 Nasal Cannula 6.0 05/30/17 08:03 36.4 92 19 96/53 (67) 90 Nasal Cannula 6.0 05/30/17 08:00 Nasal Cannula 6.0 05/30/17 07:02 89 24 83 Nasal Cannula 6.0 05/30/17 04:00 Nasal Cannula 6.0 05/30/17 03:20 36.6 86 24 99/47 (64) 91 Nasal Cannula 7.0 05/29/17 23:59 Nasal Cannula 6.0 05/29/17 23:10 36.6 91 16 104/66 (79) 90 Nasal Cannula 7.0 05/29/17 20:00 Nasal Cannula 6.0 05/29/17 19:50 36.7 105 22 100/56 (71) 90 Nasal Cannula 7.0 05/29/17 19:25 102 16 89 Nasal Cannula 6.0 05/29/17 16:11 36.7 83 20 119/64 (82) 94 Nasal Cannula 7.0 05/29/17 16:00 Nasal Cannula 6.0 05/29/17 14:40 76 16 92 Nasal Cannula 6.0 Lab Results: Results Past 24 Hours Test 05/30/17 05:35 Range/Units White Blood Count 15.80 4.8-10.8 K/uL Red Blood Count 3.38 4.2-5.4 M/uL Hemoglobin 9.9 12.0-16.0 g/dL Hematocrit 31.1 37-47 % Mean Corpuscular Volume 92.0 80-100 fL Mean Corpuscular Hemoglobin 29.3 25-34 pg Mean Corpuscular Hemoglobin Concent 31.8 32-36 g/dl RDW Standard Deviation 56.1 36.4-46.3 fL RDW Coefficient of Variation 16.7 11.5-14.5 % Platelet Count 219 130-400 K/uL Mean Platelet Volume 9.7 7.4-10.4 fL Nucleated RBC Absolute Count (auto) 0.02 0-0 K/uL Nucleated Red Blood Cells % 0.1 % Creatinine 0.50 0.60-1.20 mg/dl Est Creatinine Clear Calc Drug Dose 104.2 ml/min Estimated GFR () 120.2 Estimated GFR (Non- 103.7 Random Vancomycin Level 13.4 mcg/ml
[2017-05-30] MEDS ORDERED: VANCOMYCIN TROUGH SCH (13:30)
[2017-05-30] MEDS: ENOXAPARIN 40 MG/0.4 ML SYR SC SCH (19:47)
[2017-05-30] MEDS: AZITHROMYCIN 250 MG TAB PO SCH (19:47)
[2017-05-30] MEDS: FAMOTIDINE 20 MG TAB PO SCH (19:47)
[2017-05-30] MEDS: SERTRALINE HCL 50 MG TAB PO SCH (19:48)
[2017-05-30] MEDS: ROSUVASTATIN CALCIUM 20 MG TAB PO SCH (19:49)
[2017-05-30] MEDS: [UNRECOGNIZED DRUG - OTHER] PO SCH (21:58)
[2017-05-31] VITALS (15 sets, daily range): BP systolic 91–125; BP diastolic 57–72; PULSE 80–100; TEMP 36.4–36.8; O2SAT 85–97
[2017-05-31] MEDS: IPRATROPIUM BROMIDE NEB SOLN 0.02% 2.5 ML VIAL INH SCH ×4 (01:51→19:27)
[2017-05-31] MEDS: LEVALBUTEROL 1.25MG/0.5ML NEB INH SCH ×4 (01:51→19:27)
[2017-05-31 06:12] LABS: HEMATOCRIT 30.5 % (37-47); MEAN CELL VOLUME 92.7 fL (80-100); MEAN CORPUSCULAR HEMOGLOBIN 29.2 pg (25-34); MEAN CORPUSCULAR HGB CONC 31.5 g/dl (32-36); MEAN PLATELET VOLUME 9.3 fL (7.4-10.4); PLATELET COUNT 220 K/uL (130-400); RED BLOOD COUNT 3.29 M/uL (4.2-5.4)
[2017-05-31 06:38] LABS: BUN/CREATININE RATIO 28.7 (10-20); CALCIUM 8.6 mg/dl (8.5-10.1); CREATININE 0.47 mg/dl (0.60-1.20); MAGNESIUM 2.1 mg/dl (1.8-2.4); PHOSPHORUS 2.8 mg/dl (2.5-4.9); POTASSIUM 4.1 mmol/L (3.5-5.1)
[2017-05-31] MEDS: ACETYLCYSTEINE 20% INHAL SOLN ***DISPENSED BY RESP. INH SCH ×2 (07:23→19:27)
[2017-05-31] MEDS: POTASSIUM CHLORIDE 20 MEQ TABCR PO SCH ×2 (07:29→20:14)
[2017-05-31] MEDS: ASPIRIN 81 MG ECTAB PO SCH (07:29)
[2017-05-31] MEDS: METOPROLOL TARTRATE 25 MG TAB PO SCH ×3 (07:30→20:18)
[2017-05-31] MEDS: FUROSEMIDE 20 MG TAB PO SCH (07:30)
[2017-05-31] MEDS: NORTRIPTYLINE HCL 25 MG CAP PO SCH (07:31)
[2017-05-31] MEDS: CALCIUM 600MG + VIT D 400 IU TAB PO SCH ×2 (07:31→20:13)
[2017-05-31] MEDS: SODIUM CHLORIDE 0.65% NA SOLN 45 ML (OCEAN) SCH ×2 (07:31→20:12)
[2017-05-31] MEDS ORDERED: FUROSEMIDE INJ 60 MG in SYRINGE 0 ML IV STA (08:58)
[2017-05-31] MEDS: VANCOMYCIN INJ 1,000 MG in SODIUM CHLORIDE 0.9% 250ML 250 ML IV SCH ×2 (09:46→22:00)
--- NOTE | 2017-05-31 11:55 | PULMONARY PROGRESS NOTE ---
DATE: 05/31/2017 LOCATION: The patient was seen in room #209. PROBLEM LIST: Includes: 1. Acute on chronic hypoxic respiratory failure. 2. Chronic obstructive pulmonary disease. 3. Severe pulmonary fibrosis. SUBJECTIVE: The patient seen and examined. She reports today that she does not feel bad. She states that she does not really feel like her breathing is any worse than normal, it is just that her oxygen saturations are lower than what they normally are. She denies any wheezing. She has not had any unusual cough or congestion. She states that when she does cough, it is more of a dry and nonproductive. She has not had any discomfort in her chest with inhalation. She has not had any chest pain in general. She has not had any palpitations. She is frustrated because she was not really able to eat this morning, she wants to eat but her oxygen saturation is dropping when she does eat, so she is trying to take a bite and then put her oxygen back on. She does have difficulty breathing through her nose at times. She denies any difficulty with her bowel. She has not had any diarrhea. She has not had any difficulty voiding. She states that she has been voiding quite a bit. She states that when she came in, her legs were edematous; however, she states that since she has been here, the swelling in her legs has gone down. She denies any other concerns or problems at this time. OBJECTIVE: GENERAL: The patient is a 61-year-old female lying in bed. She does have an OxyMask in place for 9 liters. She is alert and oriented x3. Mood is good. Affect is good. She does not appear to be in any respiratory distress, does not get excessively winded with conversation and actually looks better than what her oxygen saturations are showing. VITAL SIGNS: Temp 36.4, pulse 98, respirations 16, blood pressure 108/57, pulse ox was 89% on 9 liters, via OxyMask. HEENT: Normocephalic, atraumatic. Pupils equal, round and react to light and accommodation. Extraocular movements are intact. Eyes are nonicteric. [place] moist gingival and buccal mucosa. NECK: Supple. No mass, no adenopathy, no bruit. CHEST: The patient has decreased breath sounds but however, I do not appreciate any significant wheeze. No rale or rhonchi. CARDIOVASCULAR: Regular rate and rhythm. No murmurs, gallops or rubs. ABDOMEN: Bowel sounds are present. Abdomen soft, nontender. No guarding, rigidity or organomegaly. EXTREMITIES: She has SCDs in place. There maybe some trace edema bilaterally, but I do not think it is significant. NEUROLOGIC: Cranial nerves II through XII are intact. There are no focal deficits noted. LABORATORY DATA: Shows white count of 16,000, H&H 9.6-30.5, platelet count 220,000. Serum CO2 is 32. IMAGING: From yesterday shows questionable increased interstitial thickening and bilateral airspace opacities with postulated pulmonary edema and right now has shown a positive fluid balance of about to only 200 mL since May 28. IMPRESSION: A 61-year-old female who was admitted with acute on chronic hypoxic respiratory failure, chronic obstructive pulmonary disease and pulmonary fibrosis. At this point the patient is oxygen demand is much higher than at home and that she is requiring 9 liters via OxyMask in order to maintain saturations. Overall appearing, she does not look bad other than being a little bit weak. At this point, I would recommend to continue antibiotics for a 10-day course in the light of abnormalities on the chest x-ray, although I suspect this may be more pulmonary edema than pneumonia; however, need to consider pneumonia as a possibility. Currently, she is on vancomycin and piperacillin-tazobactam and I feel that she should be on these for about 10 days. Although, if she does show improvement, we can discontinue the vancomycin. We are also recommended to continue aggressive pulmonary toilet and aggressive diuresis for now as I think that the pulmonary edema may be more of a factor right now. Would recommend to get a repeat chest x-ray in morning to see if there is any change with the implementations that have been made. At this point, I feel the patient is going to need to continue hospitalization. In reviewing the chart, the patient is a full code. With the center of her lung disease, I am not sure that this is most appropriate for her I am not sure that if patient was intubated, we would be able to extubate her. This will be discussed with Dr. Perera and then potentially with the patient as well. We will continue to follow through hospitalization. NATALIA
--- NOTE | 2017-05-31 12:20 | Progress Note ---
Internal Med Progress Note Date of Service: May 31, 2017. Provider Documentation: SUBJECTIVE: The patient was seen and examined Clinically a lot better Saturation drops with minimal exertion,even during eating OBJECTIVE: Vital Signs-as noted below Exam: General-Minimal distress at rest Eyes-normal ENT-normal Neck-supple Lungs-decreased breath sound bilaterally Moderate crackles at the bases Heart-Regular,no murmur appreciated Abdomen-Benign,no masses,bowel sound present Extremities-Trace edema bilaterally Neuro-AAOx3 generally weak and lethargic Lab data as noted below. ASSESSMENT & PLAN: This is a 61yo female with a PMH of chronic respiratory failure secondary to COPD, pulmonary fibrosis (on home O2), R sided HF, HTN who presents in acute respiratory failure after home health nurse found her to be hypoxic at 57% .Oxygen saturation Acute on chronic hypoxic respiratory failure:Pulmonary Fibrosis with COPD Health care pneumonia- possible gm negative or MRSA Baseline of 88% on chronic O2 therapy at home (5L [place]) Found to be hypoxic at 57% prior to arrival in ED,initially required NRB mask Has been on iv steroids, IV Levaquin and vancomycin and Zosyn day # 6 Chest PT, Mucomyst 3 ML twice a day, flutter valve as per pulmonary Levaquin has been changed to po azithromycin Appreciate Pulmonary input Steroid changed to oral Prednisone Antibiotics to be continued for ~ 10 days CXR -seems worse Appreciate Pulmonary input Continue Pulmonary toileting Acute on chronic R-sided Heart Failure, Preserved EF Secondary underlying pulmonary disease Echo (04/10) with preserved EF: 65-70% but elevated R ventricular systolic pressure Was on iv Lasix 40mg bid Changed to 20 mg orally from 05/30/17 May need to increase the dose of Lasix on discharge Lasix 60mg IV given on 05/31/17 and will increase daily oral dose Sepsis 2/2 PNA, UTI: On abx as above One bottle gm positive cocci-contaminant? Final cx and repeat cx-worse Will discontinue antibiotics tomorrow HTN: Stable on Lasix, metoprolol will monitor-remains on the lower side DVT PROPHYLAXIS Lovenox Code status level 1 DISPOSITION monitor in tele pt/ot when more stable needs placement social service for d/c planning Discussed in detailed with the Vital Signs: Date Time Temp Pulse Resp B/P (MAP) Pulse Ox O2 Delivery O2 Flow Rate FiO2 05/31/17 12:00 Oxymask 9.0 05/31/17 11:00 36.5 88 26 108/57 (74) 97 Oxymask 9.0 05/31/17 08:09 36.4 98 16 108/57 (74) 91 Nasal Cannula 05/31/17 08:00 Oxymask 9.0 05/31/17 07:33 100 122/72 (89) 86 Oxymask 9.0 05/31/17 07:25 83 20 92 Mask 8.0 05/31/17 06:13 90 Oxymask 10.0 05/31/17 04:13 89 Oxymask 8.0 05/31/17 03:05 36.4 85 20 125/70 (88) 90 Oxymask 8.0 05/31/17 01:51 80 24 85 Mask 8.0 05/31/17 00:00 92 Oxymask 8.0 05/30/17 23:50 36.8 83 24 112/63 (79) 93 Oxymask 8.0 05/30/17 20:00 91 Oxymask 7.0 05/30/17 19:15 95 24 94 Mask 10.0 05/30/17 19:04 36.6 104 19 127/72 (90) 90 Oxymask 11.0 05/30/17 16:00 92 Oxymask 8.0 05/30/17 14:53 36.8 91 24 97/62 (74) 97 Mask 8.0 05/30/17 14:08 82 24 74 Nasal Cannula 6.0 05/30/17 13:23 Nasal Cannula 6.0 Lab Results: Results Past 24 Hours Test 05/31/17 05:47 Range/Units White Blood Count 16.60 4.8-10.8 K/uL Red Blood Count 3.29 4.2-5.4 M/uL Hemoglobin 9.6 12.0-16.0 g/dL Hematocrit 30.5 37-47 % Mean Corpuscular Volume 92.7 80-100 fL Mean Corpuscular Hemoglobin 29.2 25-34 pg Mean Corpuscular Hemoglobin Concent 31.5 32-36 g/dl RDW Standard Deviation 56.8 36.4-46.3 fL RDW Coefficient of Variation 16.8 11.5-14.5 % Platelet Count 220 130-400 K/uL Mean Platelet Volume 9.3 7.4-10.4 fL Sodium Level 136 136-145 mmol/L Potassium Level 4.1 3.5-5.1 mmol/L Chloride Level 100 98-107 mmol/L Carbon Dioxide Level 32 21-32 mmol/L Anion Gap 4.0 3-11 mmol/L Blood Urea Nitrogen 14 7-18 mg/dl Creatinine 0.47 0.60-1.20 mg/dl Est Creatinine Clear Calc Drug Dose 112.9 ml/min Estimated GFR () 122.7 Estimated GFR (Non- 105.9 BUN/Creatinine Ratio 28.7 10-20 Random Glucose 76 70-99 mg/dl Calcium Level 8.6 8.5-10.1 mg/dl Phosphorus Level 2.8 2.5-4.9 mg/dl Magnesium Level 2.1 1.8-2.4 mg/dl
[2017-05-31] MEDS: PIPERACILL/TAZOBAC IV 3.375 GM in DEXTROSE 5% 100ML IV SCH ×2 (13:00→20:12)
[2017-05-31] MEDS: FAMOTIDINE 20 MG TAB PO SCH (20:14)
[2017-05-31] MEDS: [UNRECOGNIZED DRUG - OTHER] PO SCH (20:14)
[2017-05-31] MEDS: AZITHROMYCIN 250 MG TAB PO SCH (20:15)
[2017-05-31] MEDS: ROSUVASTATIN CALCIUM 20 MG TAB PO SCH (20:16)
[2017-05-31] MEDS: ENOXAPARIN 40 MG/0.4 ML SYR SC SCH (20:16)
[2017-05-31] MEDS: SERTRALINE HCL 50 MG TAB PO SCH (20:17)
[2017-06-01] VITALS (14 sets, daily range): BP systolic 102–153; BP diastolic 61–90; PULSE 86–102; TEMP 36.2–37.1; O2SAT 87–99
[2017-06-01] MEDS: IPRATROPIUM BROMIDE NEB SOLN 0.02% 2.5 ML VIAL INH SCH ×4 (01:53→19:37)
[2017-06-01] MEDS: LEVALBUTEROL 1.25MG/0.5ML NEB INH SCH ×4 (01:53→19:37)
[2017-06-01] MEDS: PIPERACILL/TAZOBAC IV 3.375 GM in DEXTROSE 5% 100ML IV SCH (05:22)
[2017-06-01] MEDS: ACETYLCYSTEINE 20% INHAL SOLN ***DISPENSED BY RESP. INH SCH ×2 (07:22→19:37)
[2017-06-01] MEDS: METOPROLOL TARTRATE 25 MG TAB PO SCH ×2 (07:25→21:25)
[2017-06-01] MEDS: POTASSIUM CHLORIDE 20 MEQ TABCR PO SCH ×2 (07:26→21:24)
[2017-06-01] MEDS: NORTRIPTYLINE HCL 25 MG CAP PO SCH (07:27)
[2017-06-01] MEDS: CALCIUM 600MG + VIT D 400 IU TAB PO SCH ×2 (07:27→21:24)
[2017-06-01] MEDS: FUROSEMIDE 80 MG TAB PO SCH (07:28)
[2017-06-01] MEDS: ASPIRIN 81 MG ECTAB PO SCH (07:28)
[2017-06-01] MEDS: SODIUM CHLORIDE 0.65% NA SOLN 45 ML (OCEAN) SCH ×2 (07:28→21:22)
[2017-06-01] MEDS ORDERED: METOLAZONE 2.5 MG TAB PO ONE (08:30)
[2017-06-01] MEDS ORDERED: METHYLPREDNISOLONE IV 40 MG in SYRINGE 0 ML IV ONE (12:00)
--- NOTE | 2017-06-01 12:56 | Progress Note ---
Internal Med Progress Note Date of Service: Jun 01, 2017. Provider Documentation: SUBJECTIVE: The patient was seen and examined Saturation drops with minimal exertion,even during eating Remains stable but critical OBJECTIVE: Vital Signs-as noted below Exam: General-Minimal distress at rest Decreased saturation on minimal exertion Eyes-normal ENT-normal Neck-supple Lungs-decreased breath sound bilaterally Moderate crackles bilaterally at the bases Heart-Regular,no murmur appreciated Abdomen-Benign,no masses,bowel sound present Extremities-Trace edema bilaterally Neuro-AAOx3 generally weak and lethargic Lab data as noted below. ASSESSMENT & PLAN: This is a 61yo female with a PMH of chronic respiratory failure secondary to COPD, pulmonary fibrosis (on home O2), R sided HF, HTN who presents in acute respiratory failure after home health nurse found her to be hypoxic at 57% .Oxygen saturation Acute on chronic hypoxic respiratory failure:Pulmonary Fibrosis with COPD Health care pneumonia- possible gm negative or MRSA Baseline of 88% on chronic O2 therapy at home (5L [place]) Found to be hypoxic at 57% prior to arrival in ED,initially required NRB mask Has been on iv steroids, IV Levaquin and vancomycin and Zosyn day # 6 Chest PT, Mucomyst 3 ML twice a day, flutter valve as per pulmonary Levaquin has been changed to po azithromycin Appreciate Pulmonary input Steroid changed to oral Prednisone Antibiotics to be continued for ~ 10 days CXR -seems worse Appreciate Pulmonary input Continue Pulmonary toileting Antibiotic stopped Remains critical but stable Acute on chronic R-sided Heart Failure, Preserved EF Secondary underlying pulmonary disease Echo (04/10) with preserved EF: 65-70% but elevated R ventricular systolic pressure Was on iv Lasix 40mg bid Changed to 20 mg orally from 05/30/17 May need to increase the dose of Lasix on discharge Lasix 60mg IV given on 05/31/17 and will increase daily oral dose Lasix 80mg PO daily Likely to need more Diuretics Will try to add Metolazone and change Lasix to Bumetanide Sepsis 2/2 PNA, UTI: On abx as above One bottle gm positive cocci-contaminant? Final cx and repeat cx-worse Will discontinue antibiotics today HTN: Stable on Lasix, metoprolol will monitor-remains on the lower side DVT PROPHYLAXIS Lovenox Code status level 1 DISPOSITION monitor in tele pt/ot when more stable needs placement social service for d/c planning Discussed in detailed with the Will need to discuss with the again and discussion about Resuscitation status Vital Signs: Date Time Temp Pulse Resp B/P (MAP) Pulse Ox O2 Delivery O2 Flow Rate FiO2 06/01/17 11:12 36.2 90 25 102/69 (80) 90 Oxymask 8.0 06/01/17 11:02 90 Oxymask 9.0 06/01/17 08:52 37.1 102 29 153/90 (111) 87 06/01/17 08:00 90 Oxymask 9.0 06/01/17 07:16 90 12 94 Mask 10.0 06/01/17 04:32 36.8 88 22 121/65 (83) 93 Oxymask 9.0 06/01/17 04:00 90 Oxymask 9.0 06/01/17 01:53 86 20 92 Mask 10.0 05/31/17 23:59 92 Oxymask 8.0 05/31/17 23:45 36.8 92 20 114/70 (85) 92 Oxymask 8.0 05/31/17 20:00 Oxymask 8.0 05/31/17 19:30 96 20 90 Mask 8.0 05/31/17 19:01 36.5 96 20 98/69 (79) 95 Oxymask 8.0 05/31/17 16:00 Oxymask 9.0 05/31/17 15:33 36.7 96 22 91/61 (71) 88 Oxymask 8.0 05/31/17 14:06 87 20 90 Mask 9.0
--- NOTE | 2017-06-01 13:16 | PROGRESS NOTE ---
DATE: 06/01/2017 PROBLEM LIST: Includes: 1. Acute on chronic hypoxic respiratory failure. 2. Chronic obstructive pulmonary disease. 3. Severe pulmonary fibrosis. SUBJECTIVE: The patient reports that her breathing is not as good. She is a little bit more short of breath. She does feel like she cannot catch her air. She is still on oxygen mask at 9 liters. She has not noted any increased cough or congestion, no increased wheezing. She does not feel any increased chest congestion per se. No abdominal pain, no nausea or vomiting, no indigestion or heartburn. She has not had much of an appetite, does not really feel like eating. No change in her bowels. No difficulty voiding, no swelling in her extremities. OBJECTIVE: GENERAL: The patient is a 61-year-old female lying in bed, does have oxygen mask on at 9 liters. While I was talking to her, you could see her oxygen level going down to the 83-84% range and then would rebound up to about 90% when she stopped talking. She is alert and oriented x3. Mood and affect are appropriate. VITAL SIGNS: Temperature 36.2, pulse 90, respirations 25, blood pressure is 102/69, pulse ox is 90% on oxygen mask at 9 liters. HEENT: Normocephalic, atraumatic. Pupils equal. Dry mucous membranes. NECK: Supple. No mass. No adenopathy. No bruit. CHEST: Diminished breath sounds. a little more diminished than yesterday, difficult to appreciate any noise at the bases at this time, maybe some few rales noted. CARDIOVASCULAR: Regular rate and rhythm. There are no murmurs, gallops or rubs. ABDOMEN: Bowel sounds are present. Abdomen soft, nontender. No guarding, rigidity or organomegaly. EXTREMITIES: No erythema or edema. No new lab data. No new radiologic data. IMPRESSION: A 61-year-old female with severe pulmonary fibrosis who is in for acute on chronic hypoxic respiratory failure. At this time, the patient is not really showing much sign of improvement. I feel that a big part of this may be that her pulmonary fibrosis has progressed. Did have this discussion with the patient. Did discuss patient's wishes as patient is a level 1 full code. The patient stated that she would only want something more aggressive done if it was going to be helpful for treatment, but if it was going to prolong her life, she does not want to do it. Apparently, patient has a living will at home. At this point, concerns that the patient is still requiring such high oxygen demand. We would like to try a one-time dose of IV Solu-Medrol to see if it makes any significant improvement, although we will do that in conjunction with 40 mg of prednisone that she is already on. Did have a fairly detailed discussion with the patient about the severity of her lung disease and that if we were unable to decrease the amount of oxygen that she is requiring, I would not be able to get her out of the hospital to a short-term rehab for strengthening. The patient voiced understanding. I also asked the patient if her realized the severity of her lung disease. He is not present currently, she felt that he did understand the severity. At this point, we will have someone discuss code status with her, we are in the process of getting her living will. We will do the IV Solu-Medrol, continue to follow through hospitalization. NATALIA
[2017-06-01] MEDS: ROSUVASTATIN CALCIUM 20 MG TAB PO SCH (21:23)
[2017-06-01] MEDS: [UNRECOGNIZED DRUG - OTHER] PO SCH (21:25)
[2017-06-01] MEDS: FAMOTIDINE 20 MG TAB PO SCH (21:25)
[2017-06-01] MEDS: SERTRALINE HCL 50 MG TAB PO SCH (21:26)
[2017-06-01] MEDS: ENOXAPARIN 40 MG/0.4 ML SYR SC SCH (21:27)
[2017-06-02] VITALS (10 sets, daily range): BP systolic 94–128; BP diastolic 62–73; PULSE 68–115; TEMP 36.5–36.8; O2SAT 88–99
[2017-06-02] MEDS: LEVALBUTEROL 1.25MG/0.5ML NEB INH SCH ×4 (01:38→20:20)
[2017-06-02] MEDS: IPRATROPIUM BROMIDE NEB SOLN 0.02% 2.5 ML VIAL INH SCH ×4 (01:38→20:20)
[2017-06-02] MEDS: FUROSEMIDE 80 MG TAB PO SCH (08:00)
[2017-06-02] MEDS: ASPIRIN 81 MG ECTAB PO SCH (08:00)
[2017-06-02] MEDS: METOPROLOL TARTRATE 25 MG TAB PO SCH ×2 (08:01→21:39)
[2017-06-02] MEDS: NORTRIPTYLINE HCL 25 MG CAP PO SCH (08:02)
[2017-06-02] MEDS: CALCIUM 600MG + VIT D 400 IU TAB PO SCH ×2 (08:03→21:39)
[2017-06-02] MEDS: SODIUM CHLORIDE 0.65% NA SOLN 45 ML (OCEAN) SCH ×2 (08:03→21:39)
[2017-06-02] MEDS: POTASSIUM CHLORIDE 20 MEQ TABCR PO SCH ×2 (08:03→21:39)
[2017-06-02] MEDS ORDERED: METOLAZONE 5 MG TAB PO STA (09:08)
--- NOTE | 2017-06-02 10:48 | PULMONARY PROGRESS NOTE ---
DATE: 06/02/2017 DATE: 06/02/2017 TIME: 9:40 a.m. SUBJECTIVE: The patient remains short of breath and hypoxic with any exertion at all. She continues to require fairly high oxygen concentration. She is currently on OxyMask at 9 liters. This would be approximately between 50 and 80% FIO2. She states that when they put a nasal cannula on her to eat her saturations go very low. What she does is they have to nasal cannula underneath and then she will take the mask on and off to take a couple bites of food. She has some cough. There has been no sputum production. She is not having any chest pains. She states that she has not been out of bed yet. I believe this would only be perhaps to use the commode. Yesterday she states the [place] was put in. This was because of the attempt to diurese her somewhat. She did diurese better yesterday with a total of 2400 mL out. OBJECTIVE: GENERAL: The patient looks comfortable, although she is a bit tachypneic. By that I mean she does not look in respiratory distress, but her respiratory rate is increased to 24 breaths per minute. VITAL SIGNS: Temperature is 36.5. The oxygen mask is in place. Heart rate is 92 per minute. The rhythm is regular and normal sinus. Blood pressure is 94/70. LUNGS: Auscultation of the lung mora reveals mild rales posteriorly bilaterally. No wheezing was heard. Her breath sounds are better than expected considering her hypoxia and the way her CAT scans and x-rays have looked. ABDOMEN: Soft and nontender. Bowel sounds were present and were normal. EXTREMITIES: Showed no significant edema. She appears to have clubbing. She states her nails have looked this way since she was young, but I am suspicious it may just be the past few years. No laboratory studies are pending for today. I did review her x-rays and the prior x-rays. She did have a CT angio of the chest done in March which did not show any evidence of pulmonary emboli. This was 04/17/2017 and thus we are about 6 weeks past that. I am trying to explain or look for any other reasons that she might have severe hypoxia, but with a negative CAT scan that recent with similar symptoms, I think it is unlikely. COMMENTS AND RECOMMENDATIONS: The patient has severe hypoxia associated with emphysema and pulmonary fibrosis. I do not expect this to significantly improve. It appears the patient will need long-term snf placement. She is still a full code. I believe the patient and her should consider changes to that. She would not be a good candidate to be on mechanical ventilation in terms of trying to wean her off. The only favorable thing in that regard would be that it is not clear that she is a high CO2 retainer. The carbon dioxide on the lights are slightly elevated at 32, which would suggest that she may have some degree of CO2 retention. I will continue with her current measures which includes prednisone at 40 mg daily. I would continue that for the time being and hope for some improvement, but I am not expecting any significant improvement. NATALIA
--- NOTE | 2017-06-02 14:26 | Progress Note ---
Internal Med Progress Note Date of Service: Jun 02, 2017. Provider Documentation: SUBJECTIVE: The patient was seen and examined Saturation drops with minimal exertion,even during eating Remains stable but critical Denies any new symptoms OBJECTIVE: Vital Signs-as noted below Exam: General-Minimal distress at rest Decreased saturation on minimal exertion even during eating Eyes-normal ENT-normal Neck-supple Lungs-decreased breath sound bilaterally Moderate crackles bilaterally at the bases Heart-Regular,no murmur appreciated Abdomen-Benign,no masses,bowel sound present Extremities-Trace edema bilaterally Neuro-AAOx3 generally weak and lethargic Lab data as noted below. ASSESSMENT & PLAN: This is a 61yo female with a PMH of chronic respiratory failure secondary to COPD, pulmonary fibrosis (on home O2), R sided HF, HTN who presents in acute respiratory failure after home health nurse found her to be hypoxic at 57% .Oxygen saturation Acute on chronic hypoxic respiratory failure:Pulmonary Fibrosis with COPD Health care pneumonia- possible gm negative or MRSA Baseline of 88% on chronic O2 therapy at home (5L [place]) Found to be hypoxic at 57% prior to arrival in ED,initially required NRB mask Has been on iv steroids, IV Levaquin and vancomycin and Zosyn day # 6 Chest PT, Mucomyst 3 ML twice a day, flutter valve as per pulmonary Levaquin has been changed to po azithromycin Appreciate Pulmonary input Steroid changed to oral Prednisone Antibiotics to be continued for ~ 10 days CXR -seems worse Appreciate Pulmonary input Continue Pulmonary toileting Antibiotic stopped after 10 days Remains critical but stable Appreciate Pulmonary recommendation Acute on chronic R-sided Heart Failure, Preserved EF Secondary underlying pulmonary disease Echo (04/10) with preserved EF: 65-70% but elevated R ventricular systolic pressure Was on iv Lasix 40mg bid Changed to 20 mg orally from 05/30/17 May need to increase the dose of Lasix on discharge Lasix 60mg IV given on 05/31/17 and will increase daily oral dose Lasix 80mg PO daily and getting Metolazone at times Diuresing well No Increase in Creatinine and or BUN Sepsis 2/2 PNA, UTI: On abx as above One bottle gm positive cocci-contaminant? Final cx and repeat cx-worse Will discontinue antibiotics today HTN: Stable on Lasix, metoprolol will monitor-remains on the lower side DVT PROPHYLAXIS Lovenox Code status level 1 Prognosis is poor Will discuss with the again Palliative care consulted DISPOSITION Has not been participating in Physical therapy Will need [facility] placement Discussed with the Vital Signs: Date Time Temp Pulse Resp B/P (MAP) Pulse Ox O2 Delivery O2 Flow Rate FiO2 06/02/17 14:08 87 14 94 Mask 5.0 06/02/17 12:00 Oxymask 9.0 06/02/17 11:44 36.5 107 18 117/70 (86) 91 Oxymask 7.0 06/02/17 08:00 Oxymask 9.0 06/02/17 07:49 36.5 100 20 94/70 (78) 89 Oxymask 8.0 06/02/17 07:05 84 14 99 Mask 10.0 06/02/17 04:00 Oxymask 7.0 06/02/17 03:58 36.8 90 22 121/62 (81) 92 Oxymask 06/02/17 01:38 68 18 98 Mask 10.0 06/01/17 23:59 Oxymask 9.0 06/01/17 23:41 36.6 90 22 126/68 (87) 97 Oxymask 06/01/17 20:00 Oxymask 9.0 06/01/17 19:42 94 18 95 Mask 9.0 06/01/17 19:29 36.5 98 22 110/61 (77) 99 Oxymask 9.0 06/01/17 16:09 36.4 91 16 119/66 (83) 93 Mask 06/01/17 15:00 93 Oxymask 9.0 06/01/17 15:00 88 Mask 8.0 06/01/17 14:21 95 18 90 Mask 9.0
--- NOTE | 2017-06-02 15:14 | Palliative Care Consultation ---
Consultation Date of Consultation: Jun 02, 2017. Requesting Physician: Dr. Currie Attending Physician: Dr. Currie Reason for Consultation: Goals of care, code status History of Present Illness This 61 year old female patient with PMH spina bifida, advanced COPD and pulmonary fibrosis, chronic respiratory failure, right sided heart failure and others listed below presented to the ED over a week ago after her home health nurse found her oxygen saturation to be 57%. Patient has had several admissions lately with similar complains, most recently was here in March for respiratory failure 2/2 pneumonia and right sided heart failure. She was discharged to [facility] for rehab, just got home on the Monday prior to arrival. Apparently at home she was experiencing dyspnea on exertion and nasal drainage of thick green mucous. CXR here showed "Stable to slight interval worsening of diffuse bilateral lung opacities, which may represent multifocal pneumonia, severe pulmonary edema, or diffuse alveolar damage superimposed on background emphysema or chronic lung disease." Admitted to PCU, started on abx for possible pneumonia, given IV Lasix, placed on NRB mask then later to nasal cannula and now Oxy-mask. Of note, two admissions ago patient was found to be high aspiration risk and was given specific instructions for eating/diet. Patient is being followed here by pulmonology who state that patient's respiratory status is not likely to improve much from where it is now. Also, all members of medical team agree that going home at this time is not feasible without 24/7 care and that SNF placement is appropriate. Palliative consulted to assist in establishing goals of care. I met with patient in room 209. She is awake, alert and oriented. Appears chronically ill with noticeable physical deformities due to spina bifida and severe clubbing of all nails indicating long-standing pulmonary disease. This patient is actually somewhat known to me as I met with her and her during her admission in March. At the time in March, patient and really did not seem to be aware at all of the severity of her disease. overtook that conversation- constantly diverted and talked about himself and his own medical issues. Their goal at the time was to get patient better and get her back home. Patient is now quite tearful and states she has no goals any more because everyone is telling her she can't go home. She is not interested in talking about hospice or end-of-life care, NOT because she was angry but mostly because she was tearful and having a hard time accepting. She was however willing to discuss code status with me. She states she would want to be a DNR and want not want "to be on any machines, that's no living." We will discuss further when her gets here. Further goals of care will be an ongoing conversation. Past Medical/Surgical History Medical History: (1) Anxiety Status: Chronic (2) Chronic diarrhea Status: Chronic (3) Chronic obstructive lung disease Status: Chronic (4) Depression Status: Chronic (5) Dyslipidemia Status: Chronic (6) Essential hypertension Status: Chronic (7) H/O multiple pulmonary nodules Status: Chronic (8) History of CVA (cerebrovascular accident) Status: Chronic (9) Irritable colon Status: Chronic (10) Migraine Status: Chronic (11) Pulmonary fibrosis Status: Chronic (12) Spina bifida Permanent Comment: s/p repair Status: Chronic (13) Tobacco user Status: Chronic (14) Urge incontinence Status: Chronic Surgical Problems: (1) History of cataract extraction with lens replacement Permanent Comment: sadaf; 2012 Status: Resolved (2) S/P cardiac cath Permanent Comment: 1999- minor early atherosclerotic changes, no obstruction Status: Chronic (3) s/p hysterectomy Permanent Comment: 1991 Status: Resolved Social History Smoking Status: Former Smoker History of Alcohol Use: No Drug Use: none Marital Status: Housing Status: lives with family Occupation Status: employed, disabled Review of Systems Constitutional: + weakness, No fever, No chills ENT: + nasal symptoms (drainage) Respiratory: + wheezing (occasionally), + shortness of breath, + dyspnea on exertion Cardiac: No chest pain, No edema Abdomen: No pain, No nausea, No vomiting Female : No problem reported Psychiatric: + depression symptoms (depressed and sad about not being able to go home) Allergies Coded Allergies: [place] Oil (Verified Adverse Reaction, Mild, GI UPSET, 05/20/17) Lactose Intolerance (GI) (Verified Adverse Reaction, Mild, GI SYMPTOMS, ) Morphine (Verified Adverse Reaction, Mild, confusion, 05/20/17) Medications Current Inpatient Medications Medications (Trade) Dose Ordered Sig/Bishnu Route Start Time Stop Time Status Last Admin Dose Admin Enoxaparin Sodium (Lovenox Inj) 40 mg Q24H SC 05/23/17 21:00 06/22/17 20:59 06/01/17 21:27 40 MG Acetaminophen (Tylenol Tab) 650 mg Q4H PRN PO 05/23/17 17:45 06/22/17 17:44 05/30/17 06:29 650 MG Ondansetron HCl (Zofran Inj) 4 mg Q6H PRN IV 05/23/17 17:45 06/22/17 17:44 Polyethylene (Miralax Powder Packet) 17 gm DAILY PRN PO 05/23/17 17:45 06/22/17 17:44 Potassium Chloride (Klor-Con Tab) 20 meq BID PO 05/23/17 21:00 06/22/17 20:59 06/02/17 08:03 20 MEQ Aspirin (Ecotrin Tab) 81 mg DAILY PO 05/24/17 09:00 06/23/17 08:59 06/02/17 08:00 81 MG Calcium/Vitamin D (Caltrate Plus Tab) 1 tab BID PO 05/23/17 21:00 06/22/17 20:59 06/02/17 08:03 1 TAB Famotidine (Pepcid Tab) 20 mg QPM PO 05/23/17 21:00 06/22/17 20:59 06/01/17 21:25 20 MG Metoprolol Tartrate (Lopressor Tab) 25 mg BID PO 05/23/17 21:00 06/22/17 20:59 06/01/17 21:25 25 MG Nortriptyline HCl (Pamelor Cap) 25 mg QAM PO 05/24/17 09:00 06/23/17 08:59 06/02/17 08:02 25 MG Rosuvastatin Calcium (Crestor Tab) 20 mg QPM PO 05/23/17 21:00 06/22/17 20:59 06/01/17 21:23 20 MG Sodium Chloride ([place] Nasal [place]) 2 sprays BID NA 05/23/17 21:00 06/22/17 20:59 06/01/17 21:22 2 SPRAYS Sertraline HCl (Zoloft Tab) 100 mg HS PO 05/23/17 21:00 06/22/17 20:59 06/01/17 21:26 100 MG Miscellaneous Information (Order Awaiting Action) 1 ea QS N/A 05/24/17 00:00 06/23/17 00:00 Acetylcysteine (Mucomyst 20% Inh Soln) 3 ml BIDR INH 05/23/17 21:00 06/22/17 20:59 06/01/17 19:37 3 ML Ipratropium [place] (Atrovent 0.02% 0.5MG/2.5ML Neb) 0.5 mg Q6R INH 05/23/17 21:00 06/22/17 20:59 06/02/17 14:08 0.5 MG Levalbuterol (Xopenex 1.25MG/ 0.5ML Neb) 1.25 mg Q6R INH 05/23/17 21:00 06/22/17 20:59 06/02/17 14:07 1.25 MG Non-Formulary Medication (Non-Formulary Patient'S Own Med) 1 ea HS PO 05/24/17 21:00 06/23/17 20:59 06/01/17 21:25 1 EA Prednisone (PredniSONE TAB) 40 mg DAILY PO 05/30/17 09:00 06/29/17 08:59 06/02/17 08:01 40 MG Furosemide (Lasix Tab) 80 mg QAM PO 06/01/17 09:00 06/29/17 08:59 06/02/17 08:00 80 MG Physical Exam Date Time Temp Pulse Resp B/P (MAP) Pulse Ox O2 Delivery O2 Flow Rate FiO2 06/02/17 14:08 87 14 94 Mask 5.0 06/02/17 12:00 Oxymask 9.0 06/02/17 11:44 36.5 107 18 117/70 (86) 91 Oxymask 7.0 06/02/17 08:00 Oxymask 9.0 06/02/17 07:49 36.5 100 20 94/70 (78) 89 Oxymask 8.0 06/02/17 07:05 84 14 99 Mask 10.0 06/02/17 04:00 Oxymask 7.0 06/02/17 03:58 36.8 90 22 121/62 (81) 92 Oxymask 06/02/17 01:38 68 18 98 Mask 10.0 06/01/17 23:59 Oxymask 9.0 06/01/17 23:41 36.6 90 22 126/68 (87) 97 Oxymask 06/01/17 20:00 Oxymask 9.0 06/01/17 19:42 94 18 95 Mask 9.0 06/01/17 19:29 36.5 98 22 110/61 (77) 99 Oxymask 9.0 06/01/17 16:09 36.4 91 16 119/66 (83) 93 Mask 06/01/17 15:00 93 Oxymask 9.0 06/01/17 15:00 88 Mask 8.0 General Appearance: no apparent distress, + pertinent finding (chronically ill appearing) ENT: hearing grossly normal Neck: supple, no JVD Respiratory: no respiratory distress, + decreased breath sounds (RLL>LLL), + accessory muscle use (slightly tachypneic), + crackles (bilateral bases), + wheezing (expiratory in upper lobes anteriorly) Cardiovascular: + tachycardia, + normal peripheral pulses, + pertinent finding (dusky nail beds) Abdomen: normal bowel sounds, non tender, soft Musculoskeletal: pertinent finding (deformities from spina bifida) Neurologic/Psychiatric: alert, normal mood/affect, oriented x 3 Skin: + pertinent finding Assessment & Plan Palliative Performance Scale: 40 % Problem list: VINCENT/SOB Respiratory failure- pneumonia vs. chronic lung disease COPD and pulmonary fibrosis, advanced/end-stage Weakness, generalized Right-sided heart failure- chronic Goals of care (Z51.5) Palliative care recs: discussed with patient, Dr. Kush Guerra and myself. -Patient would like to be DNR. Does not want to live on machines or be maintained in a state of poor quality of life. -Goal is to get to [facility] (or other SNF setting) for rehab. It was stressed to the patient and that rehab potential is poor, but they still want to try. They do understand that [facility] is not an appropriate setting for patient at this time. Ultimately, their goal is to get home but patient states, "I don't think it will be possible." -Patient is not ready for hospice, is not either. They both verbalized understanding of poor prognosis but they are just not ready to make that decision. is certainly open to the idea in the future, especially if it would help changes of them getting home. -I believe a low dose of Roxanol 2.5mg PO Q3h PRN pain or SOB would be beneficial for comfort. However, I see patient has morphine allergy and I didn' t get a chance to address this. Would also consider low dose lorazepam 0.5mg PO/ SL Q4h PRN anxiety. Thank you kindly for this consult. I will follow on Monday if patient is here.
[2017-06-02] MEDS: ACETYLCYSTEINE 20% INHAL SOLN ***DISPENSED BY RESP. INH SCH (20:20)
[2017-06-02] MEDS: ROSUVASTATIN CALCIUM 20 MG TAB PO SCH (21:38)
[2017-06-02] MEDS: FAMOTIDINE 20 MG TAB PO SCH (21:38)
[2017-06-02] MEDS: ENOXAPARIN 40 MG/0.4 ML SYR SC SCH (21:38)
[2017-06-02] MEDS: SERTRALINE HCL 50 MG TAB PO SCH (21:38)
[2017-06-02] MEDS: [UNRECOGNIZED DRUG - OTHER] PO SCH (21:39)
[2017-06-03] VITALS (10 sets, daily range): BP systolic 108–129; BP diastolic 63–77; PULSE 87–107; TEMP 36.6–36.8; O2SAT 84–93
[2017-06-03] MEDS: IPRATROPIUM BROMIDE NEB SOLN 0.02% 2.5 ML VIAL INH SCH ×4 (02:41→19:12)
[2017-06-03] MEDS: LEVALBUTEROL 1.25MG/0.5ML NEB INH SCH ×4 (02:42→19:12)
[2017-06-03] MEDS: ACETYLCYSTEINE 20% INHAL SOLN ***DISPENSED BY RESP. INH SCH ×2 (07:47→19:12)
[2017-06-03] MEDS: FUROSEMIDE 80 MG TAB PO SCH (08:10)
[2017-06-03] MEDS: ASPIRIN 81 MG ECTAB PO SCH (08:10)
[2017-06-03] MEDS: NORTRIPTYLINE HCL 25 MG CAP PO SCH (08:10)
[2017-06-03] MEDS: CALCIUM 600MG + VIT D 400 IU TAB PO SCH ×2 (08:11→20:24)
[2017-06-03] MEDS: POTASSIUM CHLORIDE 20 MEQ TABCR PO SCH ×2 (08:11→20:24)
[2017-06-03] MEDS: METOPROLOL TARTRATE 25 MG TAB PO SCH ×2 (08:11→20:24)
[2017-06-03] MEDS: SODIUM CHLORIDE 0.65% NA SOLN 45 ML (OCEAN) SCH ×2 (08:12→20:25)
--- NOTE | 2017-06-03 14:50 | Progress Note ---
Internal Med Progress Note Date of Service: Jun 03, 2017. Provider Documentation: SUBJECTIVE: resting comfortably denies sob no cough eating ok couldn't sleep well last night as she had had difficulty falling asleep OBJECTIVE: Vital Signs-as noted below Exam: General-alert and oriented. Not in distress ENT-normal hearing Neck-no neck masses Lungs-cta b/l no wheezing mild bibasilar crackles Heart-s1 and s2 heard regular rhythm, no murmurs Abdomen-soft bowel sounds present non tender no distension Extremities lower edema present no erythema Neuro-alert and oriented moves extremities Lab data as noted below. ASSESSMENT & PLAN: This is a 61yo female with a PMH of chronic respiratory failure 2/2 COPD, pulmonary fibrosis (on home O2), R sided HF, HTN who presents in acute respiratory failure after home health nurse found her to be hypoxic at 57%. Acute on chronic hypoxic respiratory failure: acute copd and ILD flare Health care pneumonia- possible gm negative or mrsa Baseline of 88% on chronic O2 therapy at home (5L NC) Found to be hypoxic at 57% prior to arrival in ED initially required NRB mask later was on high flow oxygen for couple of day Was on iv steroids, iv Levaquin and vancomycin - completed abx course Chest PT, Mucomyst 3 ML twice a day, flutter valve as per pulmonary currently saturating ok on oxygen mask tapering steroids Dr. Currie and palliative care discussed about hospice care but patient and not ready yet but theyb understand the situation and currently patient is DNR Sepsis 2/2 PNA, UTI: on abx as above will f/u cx one bottle micrococcus -contaminant? repeat cx negative completed 10day abx course Acute on chronic R-sided Heart Failure, Preserved Ef: secondary underlying pulmonary disease Echo (04/10) with preserved EF: 65-70% but elevated R ventricular systolic pressure on iv Lasix 40mg bid f/u i/o's and daily weights continue same for now cxr improving currently on lasix 80mg po daily HTN: Stable on Lasix, metoprolol will monitor Code staus level 5 DVT PROPHYLAXIS Lovenox DISPOSITION monitor in tele for now pt/ot plan for [facility] [employer] service for d/c planning Vital Signs: Date Time Temp Pulse Resp B/P (MAP) Pulse Ox O2 Delivery O2 Flow Rate FiO2 06/03/17 14:12 89 20 93 Mask 8.0 06/03/17 10:55 36.7 88 20 124/66 (85) 88 Oxymask 7.0 06/03/17 07:47 87 22 91 Mask 7.0 06/03/17 07:37 36.6 107 20 116/71 (86) 91 Oxymask 7.0 06/03/17 04:00 Oxymask 7.0 06/03/17 03:20 36.7 89 18 110/77 (88) 88 06/03/17 00:30 36.7 95 27 118/71 (87) 89 06/03/17 00:00 Oxymask 7.0 06/02/17 20:20 109 24 88 Mask 7.0 06/02/17 20:02 36.7 110 23 128/73 (91) 90 Oxymask 7.0 06/02/17 20:00 Oxymask 7.0 06/02/17 18:29 108 92 Oxymask 7.0 06/02/17 16:28 36.7 115 25 123/72 (89) 88 Oxymask 8.0 06/02/17 16:00 Oxymask 5.0
--- NOTE | 2017-06-03 17:16 | Pulmonology Progress Note ---
Pulmonary Progress Note Date of Service Jun 03, 2017. Attending Dr. Becerra Subjective Patient knows she is stable via her respiratory status over the last 24 hours: I did try to speak to her about her and her 's interview with the hospice team but she was not interested neck conversation. Objective VS: I/O: -1.1L RR: 18-27 SaO2: 88-91% FiO2: 7L RESP: Clear to auscultation at the apices decreased bilaterally at the bases CARD: S1-S2 distant heart sounds regular rhythm at this time ABD: Positive bowel sounds, No rebound noted EXT: Clubbing in the distal extremities bilaterally Labs: Last CBC obtained 05/31/2017 Last blood gas 05/23/2017 Last chemistry panel 05/31/2017 Blood culture 05/23/2017: Micrococcus species in only 1 of 2 cultures Pulmonary function studies 12/25/2013 Spirometry: Moderately severe obstructive ventilatory disease Bronchodilator: No significant response Lung volumes: Within normal limits Diffusion: Moderately reduced at 41% corrects to 78% off alveolar volume Radiology: Chest x-ray 05/30/2017, diffuse interstitial thickening bilaterally CTA 04/17/2017: Diffuse interstitial lung changes, emphysema, no classic honeycomb fibrosis or cylindrical bronchiectasis CTA 12/18/2013: Diffuse emphysema some diffuse ground-glass changes with mediastinal lymphadenopathy Medications: 1. Lasix 80 mg p.o. daily 2. Prednisone 40 mg daily 3. Aspirin 81 mg daily 4. Nortriptyline 25 mg daily 5. Lovenox 40 mg subcu daily 6. Atrovent/Xopenex nebulizer q.6 hours Assessment & Plan 61-year-old female with acute on chronic respiratory insufficiency/failure: 1. COPD: Let us continue her current prednisone dosing at 40 mg daily. She is able to stabilize will slowly taper down. This patient is very fragile and we will have to be extremely slow in adjusting her medications. Also suggest we continue her current Atrovent/Xopenex nebulizers. 2. Pulmonary fibrosis: Patient CT scans are not consistent with UIP/IPF. At this time I do suggest we currently continue her prednisone at 40 mg daily. She is too ill to undergo any type definitive evaluation on her underlying ILD. 3. Hypoxia: The patient continually desaturated during our conversation down to the mid 80s. Will switch over to a high-flow system and evaluate her over the next 24 hours. 4. Palliative care: I do agree with palliative care consult and the DNR/DNI status of this patient. She appears not to be engage in the overall processes her seems to be leading the conversation. She was not willing to engage me in palliative care issues and noted she was not ready to . Data Medications: Current Inpatient Medications Medications (Trade) Dose Ordered Sig/Bishnu Route Start Time Stop Time Status Last Admin Dose Admin Enoxaparin Sodium (Lovenox Inj) 40 mg Q24H SC 05/23/17 21:00 06/22/17 20:59 06/02/17 21:38 40 MG Acetaminophen (Tylenol Tab) 650 mg Q4H PRN PO 05/23/17 17:45 06/22/17 17:44 05/30/17 06:29 650 MG Ondansetron HCl (Zofran Inj) 4 mg Q6H PRN IV 05/23/17 17:45 06/22/17 17:44 Polyethylene (Miralax Powder Packet) 17 gm DAILY PRN PO 05/23/17 17:45 06/22/17 17:44 Potassium Chloride (Klor-Con Tab) 20 meq BID PO 05/23/17 21:00 06/22/17 20:59 06/03/17 08:11 20 MEQ Aspirin (Ecotrin Tab) 81 mg DAILY PO 05/24/17 09:00 06/23/17 08:59 06/03/17 08:10 81 MG Calcium/Vitamin D (Caltrate Plus Tab) 1 tab BID PO 05/23/17 21:00 06/22/17 20:59 06/03/17 08:11 1 TAB Famotidine (Pepcid Tab) 20 mg QPM PO 05/23/17 21:00 06/22/17 20:59 06/02/17 21:38 20 MG Metoprolol Tartrate (Lopressor Tab) 25 mg BID PO 05/23/17 21:00 06/22/17 20:59 06/03/17 08:11 25 MG Nortriptyline HCl (Pamelor Cap) 25 mg QAM PO 05/24/17 09:00 06/23/17 08:59 06/03/17 08:10 25 MG Rosuvastatin Calcium (Crestor Tab) 20 mg QPM PO 05/23/17 21:00 06/22/17 20:59 06/02/17 21:38 20 MG Sodium Chloride ([place] Nasal [place]) 2 sprays BID NA 05/23/17 21:00 06/22/17 20:59 06/03/17 08:12 2 SPRAYS Sertraline HCl (Zoloft Tab) 100 mg HS PO 05/23/17 21:00 06/22/17 20:59 06/02/17 21:38 100 MG Miscellaneous Information (Order Awaiting Action) 1 ea QS N/A 05/24/17 00:00 06/23/17 00:00 Acetylcysteine (Mucomyst 20% Inh Soln) 3 ml BIDR INH 05/23/17 21:00 06/22/17 20:59 06/03/17 07:47 3 ML Ipratropium [place] (Atrovent 0.02% 0.5MG/2.5ML Neb) 0.5 mg Q6R INH 05/23/17 21:00 06/22/17 20:59 06/03/17 14:12 0.5 MG Levalbuterol (Xopenex 1.25MG/ 0.5ML Neb) 1.25 mg Q6R INH 05/23/17 21:00 06/22/17 20:59 06/03/17 14:12 1.25 MG Non-Formulary Medication (Non-Formulary Patient'S Own Med) 1 ea HS PO 05/24/17 21:00 06/23/17 20:59 06/02/17 21:39 1 EA Prednisone (PredniSONE TAB) 40 mg DAILY PO 05/30/17 09:00 06/29/17 08:59 06/03/17 08:10 40 MG Furosemide (Lasix Tab) 80 mg QAM PO 06/01/17 09:00 06/29/17 08:59 06/03/17 08:10 80 MG I & O: 24-Hour Column 06/04/17 08:00 Intake Total 530 ml Output Total 1100 ml Balance -570 ml Vital Signs: Date Time Temp Pulse Resp B/P (MAP) Pulse Ox O2 Delivery O2 Flow Rate FiO2 06/03/17 15:26 36.8 99 22 108/63 (78) 84 Oxymask 8.0 06/03/17 14:12 89 20 93 Mask 8.0 06/03/17 10:55 36.7 88 20 124/66 (85) 88 Oxymask 7.0 06/03/17 07:47 87 22 91 Mask 7.0 06/03/17 07:37 36.6 107 20 116/71 (86) 91 Oxymask 7.0 06/03/17 04:00 Oxymask 7.0 06/03/17 03:20 36.7 89 18 110/77 (88) 88 06/03/17 00:30 36.7 95 27 118/71 (87) 89 06/03/17 00:00 Oxymask 7.0 06/02/17 20:20 109 24 88 Mask 7.0 06/02/17 20:02 36.7 110 23 128/73 (91) 90 Oxymask 7.0 06/02/17 20:00 Oxymask 7.0 06/02/17 18:29 108 92 Oxymask 7.0
[2017-06-03] MEDS: ACETAMINOPHEN 325 MG TAB PO PRN (19:43)
[2017-06-03] MEDS: SERTRALINE HCL 50 MG TAB PO SCH (20:23)
[2017-06-03] MEDS: FAMOTIDINE 20 MG TAB PO SCH (20:24)
[2017-06-03] MEDS: ROSUVASTATIN CALCIUM 20 MG TAB PO SCH (20:24)
[2017-06-03] MEDS: [UNRECOGNIZED DRUG - OTHER] PO SCH (20:25)
[2017-06-03] MEDS: ENOXAPARIN 40 MG/0.4 ML SYR SC SCH (20:25)
[2017-06-04] VITALS (10 sets, daily range): BP systolic 99–128; BP diastolic 60–74; PULSE 79–91; TEMP 36.3–36.9; O2SAT 87–98
[2017-06-04] MEDS: IPRATROPIUM BROMIDE NEB SOLN 0.02% 2.5 ML VIAL INH SCH ×4 (02:14→19:46)
[2017-06-04] MEDS: LEVALBUTEROL 1.25MG/0.5ML NEB INH SCH ×4 (02:14→19:46)
[2017-06-04] MEDS: ACETYLCYSTEINE 20% INHAL SOLN ***DISPENSED BY RESP. INH SCH ×2 (07:22→19:46)
[2017-06-04] MEDS: METOPROLOL TARTRATE 25 MG TAB PO SCH ×2 (08:47→20:36)
[2017-06-04] MEDS: CALCIUM 600MG + VIT D 400 IU TAB PO SCH ×2 (08:47→20:36)
[2017-06-04] MEDS: POTASSIUM CHLORIDE 20 MEQ TABCR PO SCH ×2 (08:47→20:37)
[2017-06-04] MEDS: NORTRIPTYLINE HCL 25 MG CAP PO SCH (08:48)
[2017-06-04] MEDS: ASPIRIN 81 MG ECTAB PO SCH (08:48)
[2017-06-04] MEDS: FUROSEMIDE 80 MG TAB PO SCH (08:48)
[2017-06-04] MEDS: SODIUM CHLORIDE 0.65% NA SOLN 45 ML (OCEAN) SCH ×2 (09:00→20:37)
--- NOTE | 2017-06-04 10:36 | Pulmonology Progress Note ---
Pulmonary Progress Note Date of Service Jun 04, 2017. Attending Dr. Becerra Subjective Patient notes overall progress and much less fatigue on the high-flow oxygen system: Objective Patient looks more comfortable in bed today not using accessory muscles and able to complete full sentences. She continues to desaturate into the high 80s during our conversation but is not using accessory muscles nor is she tachypneic during the conversation. VS: Stable on high-flow oxygen RESP: Clear to auscultation at the apices decreased bilaterally at the bases CARD: S1-S2 distant heart sounds regular rhythm at this time ABD: Positive bowel sounds, No rebound noted EXT: Clubbing in the distal extremities bilaterally Labs: Last CBC obtained 05/31/2017 Last blood gas 05/23/2017 Last chemistry panel 05/31/2017 Blood culture 05/23/2017: Micrococcus species in only 1 of 2 cultures Pulmonary function studies 12/25/2013 Spirometry: Moderately severe obstructive ventilatory disease Bronchodilator: No significant response Lung volumes: Within normal limits Diffusion: Moderately reduced at 41% corrects to 78% off alveolar volume Radiology: Chest x-ray 05/30/2017, diffuse interstitial thickening bilaterally CTA 04/17/2017: Diffuse interstitial lung changes, emphysema, no classic honeycomb fibrosis or cylindrical bronchiectasis CTA 12/18/2013: Diffuse emphysema some diffuse ground-glass changes with mediastinal lymphadenopathy Medications: 1. Lasix 80 mg p.o. daily 2. Prednisone 40 mg daily 3. Aspirin 81 mg daily 4. Nortriptyline 25 mg daily 5. Lovenox 40 mg subcu daily 6. Atrovent/Xopenex nebulizer q.6 hours Assessment & Plan 61-year-old female with acute on chronic respiratory insufficiency/failure: 1. COPD: Pulmonary function test to showed moderately severe obstructive ventilatory disease and I agree with continuing her prednisone at this time 40 mg/q.d.. It does also appear the that she responds well the high-flow oxygen as well as her Atrovent/Xopenex nebulizer. 2. Pulmonary fibrosis: Patient CT scans are not consistent with UIP/IPF. At this time I do suggest we currently continue her prednisone at 40 mg daily. She is too ill to undergo any type definitive evaluation on her underlying ILD. 3. Hypoxia: Patient has been on the high-flow oxygen system for the last 12 hours and is clinically responded well and overall her SaO2 is appear to be more stable. 4. Palliative care: I do agree with palliative care consult and the DNR/DNI status of this patient. She appears not to be engage in the overall processes her seems to be leading the conversation. She was not willing to engage me in palliative care issues and noted she was not ready to . Data Medications: Current Inpatient Medications Medications (Trade) Dose Ordered Sig/Bishnu Route Start Time Stop Time Status Last Admin Dose Admin Enoxaparin Sodium (Lovenox Inj) 40 mg Q24H SC 05/23/17 21:00 06/22/17 20:59 06/03/17 20:25 40 MG Acetaminophen (Tylenol Tab) 650 mg Q4H PRN PO 05/23/17 17:45 06/22/17 17:44 06/03/17 19:43 650 MG Ondansetron HCl (Zofran Inj) 4 mg Q6H PRN IV 05/23/17 17:45 06/22/17 17:44 Polyethylene (Miralax Powder Packet) 17 gm DAILY PRN PO 05/23/17 17:45 06/22/17 17:44 Potassium Chloride (Klor-Con Tab) 20 meq BID PO 05/23/17 21:00 06/22/17 20:59 06/04/17 08:47 20 MEQ Aspirin (Ecotrin Tab) 81 mg DAILY PO 05/24/17 09:00 06/23/17 08:59 06/04/17 08:48 81 MG Calcium/Vitamin D (Caltrate Plus Tab) 1 tab BID PO 05/23/17 21:00 06/22/17 20:59 06/04/17 08:47 1 TAB Famotidine (Pepcid Tab) 20 mg QPM PO 05/23/17 21:00 06/22/17 20:59 06/03/17 20:24 20 MG Metoprolol Tartrate (Lopressor Tab) 25 mg BID PO 05/23/17 21:00 06/22/17 20:59 06/04/17 08:47 25 MG Nortriptyline HCl (Pamelor Cap) 25 mg QAM PO 05/24/17 09:00 06/23/17 08:59 06/04/17 08:48 25 MG Rosuvastatin Calcium (Crestor Tab) 20 mg QPM PO 05/23/17 21:00 06/22/17 20:59 06/03/17 20:24 20 MG Sodium Chloride ([place] Nasal [place]) 2 sprays BID NA 05/23/17 21:00 06/22/17 20:59 06/04/17 09:00 2 SPRAYS Sertraline HCl (Zoloft Tab) 100 mg HS PO 05/23/17 21:00 06/22/17 20:59 06/03/17 20:23 100 MG Miscellaneous Information (Order Awaiting Action) 1 ea QS N/A 05/24/17 00:00 06/23/17 00:00 Acetylcysteine (Mucomyst 20% Inh Soln) 3 ml BIDR INH 05/23/17 21:00 06/22/17 20:59 06/04/17 07:22 3 ML Ipratropium [place] (Atrovent 0.02% 0.5MG/2.5ML Neb) 0.5 mg Q6R INH 05/23/17 21:00 06/22/17 20:59 06/04/17 07:22 0.5 MG Levalbuterol (Xopenex 1.25MG/ 0.5ML Neb) 1.25 mg Q6R INH 05/23/17 21:00 06/22/17 20:59 06/04/17 07:22 1.25 MG Non-Formulary Medication (Non-Formulary Patient'S Own Med) 1 ea HS PO 05/24/17 21:00 06/23/17 20:59 06/03/17 20:25 1 EA Prednisone (PredniSONE TAB) 40 mg DAILY PO 05/30/17 09:00 06/29/17 08:59 06/04/17 08:48 40 MG Furosemide (Lasix Tab) 80 mg QAM PO 06/01/17 09:00 06/29/17 08:59 06/04/17 08:48 80 MG Vital Signs: Date Time Temp Pulse Resp B/P (MAP) Pulse Ox O2 Delivery O2 Flow Rate FiO2 06/04/17 07:42 36.9 88 20 128/73 (91) 98 Nasal Cannula 3.0 06/04/17 07:22 88 24 92 Nasal Cannula 55.0 77 06/04/17 04:24 36.3 91 18 110/60 (77) 93 06/04/17 04:00 High Flow Oxygen 55 06/04/17 02:14 82 20 95 Mask 55.0 84 06/04/17 00:11 36.6 84 16 125/74 (91) 95 06/04/17 00:00 High Flow Oxygen 55 06/03/17 20:00 High Flow Oxygen 55 06/03/17 19:14 36.6 99 14 129/73 (91) 90 High Flow Oxygen Oxymask 06/03/17 19:13 88 20 88 Mask 55.0 82 06/03/17 16:30 Oxymask 7.0 06/03/17 15:26 36.8 99 22 108/63 (78) 84 Oxymask 8.0 06/03/17 14:12 89 20 93 Mask 8.0 06/03/17 12:30 Oxymask 7.0 06/03/17 10:55 36.7 88 20 124/66 (85) 88 Oxymask 7.0
--- NOTE | 2017-06-04 11:06 | Progress Note ---
Internal Med Progress Note Date of Service: Jun 04, 2017. Provider Documentation: SUBJECTIVE: sats are ok on high flow oxygen eating ok afebrile sat on chair only once during this admission moving bowels ok no chest pain comfortable OBJECTIVE: Vital Signs-as noted below Exam: General-alert and oriented. Not in distress ENT-normal hearing Neck-no neck masses Lungs-cta b/l no wheezing mild bibasilar crackles Heart-s1 and s2 heard regular rhythm, no murmurs Abdomen-soft bowel sounds present non tender no distension Extremities lower edema present no erythema Neuro-alert and oriented moves extremities Lab data as noted below. ASSESSMENT & PLAN: This is a 61yo female with a PMH of chronic respiratory failure 2/2 COPD, pulmonary fibrosis (on home O2), R sided HF, HTN who presents in acute respiratory failure after home health nurse found her to be hypoxic at 57%. Acute on chronic hypoxic respiratory failure: acute copd and ILD flare Health care pneumonia- possible gm negative or mrsa Baseline of 88% on chronic O2 therapy at home (5L NC) Found to be hypoxic at 57% prior to arrival in ED initially required NRB mask later was on high flow oxygen for couple of day Was on iv steroids, iv Levaquin and vancomycin - completed abx course Chest PT, Mucomyst 3 ML twice a day, flutter valve as per pulmonary currently saturating ok on oxygen mask but currently back on high flow oxygen tapering steroids- very slow taper as per pulmonary Dr. Currie and palliative care discussed about hospice care but patient and not ready yet but theyb understand the situation and currently patient is DNR will monitor.Not much improvement guarded prognosis Sepsis 2/2 PNA, UTI: on abx as above will f/u cx one bottle micrococcus -contaminant? repeat cx negative completed 10day abx course Acute on chronic R-sided Heart Failure, Preserved Ef: secondary underlying pulmonary disease Echo (04/10) with preserved EF: 65-70% but elevated R ventricular systolic pressure on iv Lasix 40mg bid f/u i/o's and daily weights continue same for now currently on lasix 80mg po daily will f/u cxr HTN: Stable on Lasix, metoprolol will monitor Code staus level 5 DVT PROPHYLAXIS Lovenox DISPOSITION monitor in tele for now pt/ot plan for [facility] service for d/c planning Vital Signs: Date Time Temp Pulse Resp B/P (MAP) Pulse Ox O2 Delivery O2 Flow Rate FiO2 06/04/17 07:42 36.9 88 20 128/73 (91) 98 Nasal Cannula 3.0 06/04/17 07:22 88 24 92 Nasal Cannula 55.0 77 06/04/17 04:24 36.3 91 18 110/60 (77) 93 06/04/17 04:00 High Flow Oxygen 55 06/04/17 02:14 82 20 95 Mask 55.0 84 06/04/17 00:11 36.6 84 16 125/74 (91) 95 06/04/17 00:00 High Flow Oxygen 55 06/03/17 20:00 High Flow Oxygen 55 06/03/17 19:14 36.6 99 14 129/73 (91) 90 High Flow Oxygen Oxymask 06/03/17 19:13 88 20 88 Mask 55.0 82 06/03/17 16:30 Oxymask 7.0 06/03/17 15:26 36.8 99 22 108/63 (78) 84 Oxymask 8.0 06/03/17 14:12 89 20 93 Mask 8.0 06/03/17 12:30 Oxymask 7.0
--- NOTE | 2017-06-04 13:07 | DIAGNOSTIC IMAGING REPORT ---
CHEST ONE VIEW PORTABLE CLINICAL HISTORY: congestion? Dyspnea COMPARISON STUDY: 05/30/2017 FINDINGS: Emphysematous change. Diffuse chronic fibrotic change. Although components of this potentially relates to superimposed infiltrative change, it has not altered from the prior exam. Diaphragms are smooth. IMPRESSION: Stable exam including unchanging interstitial change throughout both hemithoraces. No new or interval process. The above report was generated using voice recognition software. It may contain grammatical, syntax or spelling errors. Electronically signed by: Steven Vidal M.D. 06/04/2017 1:06 PM Dictated Date/Time: 06/04/2017 1:05 PM
[2017-06-04] MEDS: [UNRECOGNIZED DRUG - OTHER] PO SCH (20:36)
[2017-06-04] MEDS: SERTRALINE HCL 50 MG TAB PO SCH (20:36)
[2017-06-04] MEDS: FAMOTIDINE 20 MG TAB PO SCH (20:36)
[2017-06-04] MEDS: ROSUVASTATIN CALCIUM 20 MG TAB PO SCH (20:36)
[2017-06-04] MEDS: ENOXAPARIN 40 MG/0.4 ML SYR SC SCH (20:37)
[2017-06-05] VITALS (14 sets, daily range): BP systolic 103–127; BP diastolic 58–77; PULSE 78–98; TEMP 36.2–36.9; O2SAT 87–94
[2017-06-05] MEDS: IPRATROPIUM BROMIDE NEB SOLN 0.02% 2.5 ML VIAL INH SCH ×4 (01:47→21:00)
[2017-06-05] MEDS: LEVALBUTEROL 1.25MG/0.5ML NEB INH SCH ×4 (01:47→21:00)
[2017-06-05] MEDS: ACETAMINOPHEN 325 MG TAB PO PRN ×2 (05:43→19:18)
[2017-06-05] MEDS: ACETYLCYSTEINE 20% INHAL SOLN ***DISPENSED BY RESP. INH SCH ×2 (07:15→20:00)
[2017-06-05] MEDS: SODIUM CHLORIDE 0.65% NA SOLN 45 ML (OCEAN) SCH ×2 (08:15→21:23)
[2017-06-05] MEDS: CALCIUM 600MG + VIT D 400 IU TAB PO SCH ×2 (08:16→21:23)
[2017-06-05] MEDS: ASPIRIN 81 MG ECTAB PO SCH (08:17)
[2017-06-05] MEDS: POTASSIUM CHLORIDE 20 MEQ TABCR PO SCH ×2 (08:18→21:23)
[2017-06-05] MEDS: FUROSEMIDE 80 MG TAB PO SCH (08:19)
[2017-06-05] MEDS: NORTRIPTYLINE HCL 25 MG CAP PO SCH (08:20)
[2017-06-05] MEDS: METOPROLOL TARTRATE 25 MG TAB PO SCH ×2 (08:20→21:23)
--- NOTE | 2017-06-05 12:52 | Pulmonology Progress Note ---
Pulmonary Progress Note Date of Service Jun 05, 2017. Attending Dr. De La Paz Subjective Patient seen and examined. She states that her breathing is the same. She is complaining of four episodes of diarrhea this morning. Objective VS reviewed. Gen: AAOx3, NAD, tachypneic, appears to be at baseline Lungs: CTA on anterior chest wall, currently on high flow nasal canula. Abd; soft/NT/ND/BS+ Ext: bilateral clubbing, no cyanosis, no edema De La Paz catheter in place. Lab reviewed Blood culture 05/23/2017: Micrococcus species in only 1 of 2 cultures Pulmonary function studies 12/25/2013 Spirometry: Moderately severe obstructive ventilatory disease Bronchodilator: No significant response Lung volumes: Within normal limits Diffusion: Moderately reduced at 41% corrects to 78% off alveolar volume Radiology: Chest x-ray 05/30/2017, diffuse interstitial thickening bilaterally CTA 04/17/2017: Diffuse interstitial lung changes, emphysema, no classic honeycomb fibrosis or cylindrical bronchiectasis CTA 12/18/2013: Diffuse emphysema some diffuse ground-glass changes with mediastinal lymphadenopathy Medications reviewed and listed below Assessment & Plan 61-year-old female with acute on chronic respiratory insufficiency/failure: COPD Pulmonary fibrosis Acute on chronic hypoxic respiratory failure Diarrhea Continue with HFNC to maintain SaO2>92%. Continue with Atrovent and Xopenex nebulizer Continue with Mucumyst and chest PT Continue with prednisone 40 mg daily I would send stool for C.diff as she has been on chronic diarrhea Her overall prognosis is poor and she appears to have end stage lung disease and is declining F/u palliative care consult to discuss overall goals of care and patient's wishes. Data Medications: Current Inpatient Medications Medications (Trade) Dose Ordered Sig/Bishnu Route Start Time Stop Time Status Last Admin Dose Admin Enoxaparin Sodium (Lovenox Inj) 40 mg Q24H SC 05/23/17 21:00 06/22/17 20:59 06/04/17 20:37 40 MG Acetaminophen (Tylenol Tab) 650 mg Q4H PRN PO 05/23/17 17:45 06/22/17 17:44 06/05/17 05:43 650 MG Ondansetron HCl (Zofran Inj) 4 mg Q6H PRN IV 05/23/17 17:45 06/22/17 17:44 Polyethylene (Miralax Powder Packet) 17 gm DAILY PRN PO 05/23/17 17:45 06/22/17 17:44 Potassium Chloride (Klor-Con Tab) 20 meq BID PO 05/23/17 21:00 06/22/17 20:59 06/05/17 08:18 20 MEQ Aspirin (Ecotrin Tab) 81 mg DAILY PO 05/24/17 09:00 06/23/17 08:59 06/05/17 08:17 81 MG Calcium/Vitamin D (Caltrate Plus Tab) 1 tab BID PO 05/23/17 21:00 06/22/17 20:59 06/05/17 08:16 1 TAB Famotidine (Pepcid Tab) 20 mg QPM PO 05/23/17 21:00 06/22/17 20:59 06/04/17 20:36 20 MG Metoprolol Tartrate (Lopressor Tab) 25 mg BID PO 05/23/17 21:00 06/22/17 20:59 06/05/17 08:20 25 MG Nortriptyline HCl (Pamelor Cap) 25 mg QAM PO 05/24/17 09:00 06/23/17 08:59 06/05/17 08:20 25 MG Rosuvastatin Calcium (Crestor Tab) 20 mg QPM PO 05/23/17 21:00 06/22/17 20:59 06/04/17 20:36 20 MG Sodium Chloride ([place] Nasal [place]) 2 sprays BID NA 05/23/17 21:00 06/22/17 20:59 06/05/17 08:15 2 SPRAYS Sertraline HCl (Zoloft Tab) 100 mg HS PO 05/23/17 21:00 06/22/17 20:59 06/04/17 20:36 100 MG Miscellaneous Information (Order Awaiting Action) 1 ea QS N/A 05/24/17 00:00 06/23/17 00:00 Acetylcysteine (Mucomyst 20% Inh Soln) 3 ml BIDR INH 05/23/17 21:00 06/22/17 20:59 06/05/17 07:15 3 ML Ipratropium [place] (Atrovent 0.02% 0.5MG/2.5ML Neb) 0.5 mg Q6R INH 05/23/17 21:00 9/28/17 20:59 06/05/17 07:15 0.5 MG Levalbuterol (Xopenex 1.25MG/ 0.5ML Neb) 1.25 mg Q6R INH 05/23/17 21:00 06/22/17 20:59 06/05/17 07:15 1.25 MG Non-Formulary Medication (Non-Formulary Patient'S Own Med) 1 ea HS PO 05/24/17 21:00 06/23/17 20:59 06/04/17 20:36 1 EA Prednisone (PredniSONE TAB) 40 mg DAILY PO 05/30/17 09:00 06/29/17 08:59 06/05/17 08:21 40 MG Furosemide (Lasix Tab) 80 mg QAM PO 06/01/17 09:00 06/29/17 08:59 06/05/17 08:19 80 MG Vital Signs: Date Time Temp Pulse Resp B/P (MAP) Pulse Ox O2 Delivery O2 Flow Rate FiO2 06/05/17 12:00 High Flow Oxygen 55.0 50 06/05/17 10:41 36.9 81 20 103/58 (73) 94 High Flow Oxygen 06/05/17 09:51 92 High Flow Oxygen 06/05/17 08:00 91 High Flow Oxygen 55.0 50 06/05/17 07:16 79 20 91 Nasal Cannula 55.0 80 06/05/17 07:09 36.4 80 20 127/70 (89) 93 High Flow Oxygen 06/05/17 04:09 36.6 78 18 124/62 (82) 90 06/05/17 04:00 High Flow Oxygen 50.0 55 06/05/17 01:47 86 20 87 Nasal Cannula 55.0 77 06/05/17 00:10 126/77 (93) 06/05/17 00:06 36.8 85 16 91 06/05/17 00:00 High Flow Oxygen 50.0 55 06/04/17 20:00 High Flow Oxygen 55 06/04/17 19:46 85 20 87 Nasal Cannula 55.0 77 06/04/17 19:13 36.9 79 18 109/66 (80) 92 High Flow Oxygen 06/04/17 16:05 High Flow Oxygen 50.0 Oxymask 06/04/17 15:41 36.6 85 20 99/61 (74) 89 High Flow Oxygen 06/04/17 14:09 89 20 88 Nasal Cannula 55.0 77
--- NOTE | 2017-06-05 17:21 | Progress Note ---
Internal Med Progress Note Date of Service: Jun 05, 2017. Provider Documentation: SUBJECTIVE: Patient was not able to sit on the chair as patient was desaturating with minimal exertion. eating ok 'had some diarrhea today afebrile was in the room and d/w about hospice with Me and Pulmonary. OBJECTIVE: Vital Signs-as noted below Exam: General-alert and oriented. ENT-normal hearing Neck-no neck masses Lungs-cta b/l no wheezing mild bibasilar crackles Heart-s1 and s2 heard regular rhythm, no murmurs Abdomen-soft bowel sounds present non tender no distension Extremities lower edema present no erythema Neuro-alert and oriented moves extremities Lab data as noted below. ASSESSMENT & PLAN: This is a 61yo female with a PMH of chronic respiratory failure 2/2 COPD, pulmonary fibrosis (on home O2), R sided HF, HTN who presents in acute respiratory failure after home health nurse found her to be hypoxic at 57%. Acute on chronic hypoxic respiratory failure: acute copd and ILD flare Health care pneumonia- possible gm negative or mrsa Baseline of 88% on chronic O2 therapy at home (5L NC) Found to be hypoxic at 57% prior to arrival in ED initially required NRB mask later was on high flow oxygen for couple of day Was on iv steroids, iv Levaquin and vancomycin - completed abx course Chest PT, Mucomyst 3 ML twice a day, flutter valve as per pulmonary currently saturating ok on oxygen mask but currently back on high flow oxygen tapering steroids- very slow taper as per pulmonary Dr. Currie and palliative care discussed about hospice care last week but patient and were not ready yet but they understand the situation and currently patient is DNR not much improvement. Requiring high flow oxygen and desaturating with minimal exertion Pulmonary and me d/w patient and about patient condition and poor prognosis. considering [facility] hospice but want to d/w the options with social service and palliative care Sepsis 2/2 PNA, UTI: on abx as above will f/u cx one bottle micrococcus -contaminant? repeat cx negative completed 10day abx course Acute on chronic R-sided Heart Failure, Preserved Ef: secondary underlying pulmonary disease Echo (04/10) with preserved EF: 65-70% but elevated R ventricular systolic pressure on iv Lasix 40mg bid f/u i/o's and daily weights continue same for now currently on lasix 80mg po daily will f/u cxr- some what better HTN: Stable on Lasix, metoprolol will monitor Code staus level 5 DVT PROPHYLAXIS Lovenox DISPOSITION monitor in tele for now pt/ot home vs [facility] hospice social service for d/c planning Vital Signs: Date Time Temp Pulse Resp B/P (MAP) Pulse Ox O2 Delivery O2 Flow Rate FiO2 06/05/17 16:00 High Flow Oxygen 55.0 50 06/05/17 14:55 36.8 85 20 113/62 (79) 92 High Flow Oxygen 06/05/17 14:15 84 20 92 Nasal Cannula 55.0 80 06/05/17 12:00 High Flow Oxygen 55.0 50 06/05/17 10:41 36.9 81 20 103/58 (73) 94 High Flow Oxygen 06/05/17 09:51 92 High Flow Oxygen 06/05/17 08:00 91 High Flow Oxygen 55.0 50 06/05/17 07:16 79 20 91 Nasal Cannula 55.0 80 06/05/17 07:09 36.4 80 20 127/70 (89) 93 High Flow Oxygen 06/05/17 04:09 36.6 78 18 124/62 (82) 90 06/05/17 04:00 High Flow Oxygen 50.0 55 06/05/17 01:47 86 20 87 Nasal Cannula 55.0 77 06/05/17 00:10 126/77 (93) 06/05/17 00:06 36.8 85 16 91 06/05/17 00:00 High Flow Oxygen 50.0 55 06/04/17 20:00 High Flow Oxygen 55 06/04/17 19:46 85 20 87 Nasal Cannula 55.0 77 06/04/17 19:13 36.9 79 18 109/66 (80) 92 High Flow Oxygen
[2017-06-05] MEDS: [UNRECOGNIZED DRUG - OTHER] PO SCH (21:22)
[2017-06-05] MEDS: ROSUVASTATIN CALCIUM 20 MG TAB PO SCH (21:23)
[2017-06-05] MEDS: FAMOTIDINE 20 MG TAB PO SCH (21:23)
[2017-06-05] MEDS: SERTRALINE HCL 50 MG TAB PO SCH (21:23)
[2017-06-05] MEDS: ENOXAPARIN 40 MG/0.4 ML SYR SC SCH (21:24)
[2017-06-06] VITALS (12 sets, daily range): BP systolic 102–127; BP diastolic 63–68; PULSE 74–101; TEMP 36.4–36.7; O2SAT 89–96
[2017-06-06] MEDS ORDERED: LEVALBUTEROL/IPRATROPIUM NEB INH ONE (00:45)
[2017-06-06] MEDS ORDERED: METHYLPREDNISOLONE IV 60 MG in SYRINGE 0 ML IV ONE (01:15)
[2017-06-06] MEDS ORDERED: FUROSEMIDE INJ 20 MG in SYRINGE 0 ML IV ONE (01:15)
[2017-06-06] MEDS ORDERED: IPRATROPIUM BROMIDE NEB SOLN 0.02% 2.5 ML VIAL INH ONE (01:45)
[2017-06-06] MEDS ORDERED: LEVALBUTEROL 1.25MG/0.5ML NEB INH ONE (01:45)
[2017-06-06] MEDS: LEVALBUTEROL 1.25MG/0.5ML NEB INH SCH ×6 (01:55→23:30)
--- NOTE | 2017-06-06 07:08 | DIAGNOSTIC IMAGING REPORT ---
CHEST ONE VIEW PORTABLE CLINICAL HISTORY: 61 years-old Female presenting with RESP DISTRESS.. TECHNIQUE: Portable upright AP view of the chest was obtained. COMPARISON: 06/04/2017. FINDINGS: Patient is MURO rotated. Cardiac silhouette is largely obscured secondary to extensive bilateral reticular and groundglass pulmonary opacities, greatest at the mid to lower lungs. No large effusion or pneumothorax. Osseous structures normal. Upper abdomen normal. IMPRESSION: 1. Extensive opacities most concerning for superimposed edema or infection on chronic lung disease/emphysema. Electronically signed by: Toney Gan M.D. 06/06/2017 7:07 AM Dictated Date/Time: 06/06/2017 7:04 AM
[2017-06-06] MEDS: ACETYLCYSTEINE 20% INHAL SOLN ***DISPENSED BY RESP. INH SCH ×2 (07:46→19:39)
[2017-06-06] MEDS: IPRATROPIUM BROMIDE NEB SOLN 0.02% 2.5 ML VIAL INH SCH ×5 (07:46→23:15)
[2017-06-06] MEDS: POTASSIUM CHLORIDE 20 MEQ TABCR PO SCH ×2 (08:11→20:51)
[2017-06-06] MEDS: METOPROLOL TARTRATE 25 MG TAB PO SCH ×2 (08:11→20:51)
[2017-06-06] MEDS: FUROSEMIDE 80 MG TAB PO SCH (08:11)
[2017-06-06] MEDS: NORTRIPTYLINE HCL 25 MG CAP PO SCH (08:11)
[2017-06-06] MEDS: CALCIUM 600MG + VIT D 400 IU TAB PO SCH ×2 (08:11→20:50)
[2017-06-06] MEDS: SODIUM CHLORIDE 0.65% NA SOLN 45 ML (OCEAN) SCH ×2 (08:11→20:49)
[2017-06-06] MEDS: ASPIRIN 81 MG ECTAB PO SCH (08:11)
[2017-06-06 09:57] LABS: BASO % 0.1 %; BASO ABS # 0.01 K/uL (0-0.2); COMPLETE YES; EOS % 0.1 %; HEMATOCRIT 35.8 % (37-47); IG% 4.9 %; LYMPH % 8.6 %; LYMPH ABS # 1.33 K/uL (1.2-3.4); MEAN CELL VOLUME 87.1 fL (80-100); MEAN CORPUSCULAR HEMOGLOBIN 29.2 pg (25-34); MEAN CORPUSCULAR HGB CONC 33.5 g/dl (32-36); MEAN PLATELET VOLUME 9.6 fL (7.4-10.4); MONO % 4.3 %; PLATELET COUNT 329 K/uL (130-400); RED BLOOD COUNT 4.11 M/uL (4.2-5.4); WHITE BLOOD COUNT 15.43 K/uL (4.8-10.8)
[2017-06-06 10:13] LABS: CALCIUM 9.4 mg/dl (8.5-10.1); CREATININE 0.76 mg/dl (0.60-1.20); POTASSIUM 3.4 mmol/L (3.5-5.1)
[2017-06-06 10:16] LABS: ALB/GLOB RATIO 0.7 (0.9-2)
--- NOTE | 2017-06-06 10:25 | Progress Note ---
Internal Med Progress Note Date of Service: Jun 06, 2017. Provider Documentation: SUBJECTIVE: last night patient had an episode of desaturation and improved later currently saturating ok on 6lt mask afebrile patient was comfortable through the episode eating ok moved bowels yesterday OBJECTIVE: Vital Signs-as noted below Exam: General-alert and oriented. ENT-normal hearing Neck-no neck masses Lungs-cta b/l no wheezing bibasilar crackles Heart-s1 and s2 heard regular rhythm, no murmurs Abdomen-soft bowel sounds present non tender no distension Extremities no edema present no erythema Neuro-alert and oriented moves extremities Lab data as noted below. ASSESSMENT & PLAN: This is a 61yo female with a PMH of chronic respiratory failure 2/2 COPD, pulmonary fibrosis (on home O2), R sided HF, HTN who presents in acute respiratory failure after home health nurse found her to be hypoxic at 57%. Acute on chronic hypoxic respiratory failure: acute copd and ILD flare Health care pneumonia- possible gm negative or mrsa Baseline of 88% on chronic O2 therapy at home (5L NC) Found to be hypoxic at 57% prior to arrival in ED initially required NRB mask later was on high flow oxygen for couple of day Was on iv steroids, iv Levaquin and vancomycin - completed abx course Chest PT, Mucomyst 3 ML twice a day, flutter valve as per pulmonary currently saturating ok on oxygen mask but currently back on high flow oxygen tapering steroids- very slow taper as per pulmonary Dr. Currie and palliative care discussed about hospice care last week but patient and were not ready yet but they understand the situation and currently patient is DNR not much improvement. Requiring high flow oxygen and desaturating with minimal exertion Pulmonary and me d/w patient and about patient condition and poor prognosis. considering custodial hospice but want to d/w the options with social service and palliative care received iv lasix for desaturation episode. currently stable Hyponatremia na 121 on today labs will hold lasix and f/u labs Sepsis 2/2 PNA, UTI: on abx as above will f/u cx one bottle micrococcus -contaminant? repeat cx negative completed 10day abx course Acute on chronic R-sided Heart Failure, Preserved Ef: secondary underlying pulmonary disease Echo (04/10) with preserved EF: 65-70% but elevated R ventricular systolic pressure on iv Lasix 40mg bid f/u i/o's and daily weights continue same for now currently on lasix 80mg po daily will f/u cxr- some what better holding lasix for hyponatremia will monitor HTN: Stable on Lasix, metoprolol will monitor Code staus level 5 DVT PROPHYLAXIS Lovenox DISPOSITION monitor in tele for now pt/ot home vs custodial hospice social service for d/c planning Vital Signs: Date Time Temp Pulse Resp B/P (MAP) Pulse Ox O2 Delivery O2 Flow Rate FiO2 06/06/17 08:00 Nasal Cannula 6.0 Mask 06/06/17 07:46 82 20 94 Mask 6.0 06/06/17 07:25 36.7 89 20 116/68 (84) 92 Oxymask 9.0 06/06/17 04:00 High Flow Oxygen 55 06/06/17 03:15 36.7 80 18 112/63 (79) 94 Oxymask 15.0 06/06/17 02:29 80 22 94 Mask 15.0 06/06/17 00:00 High Flow Oxygen 55 06/05/17 23:30 36.5 88 20 112/60 (77) 90 High Flow Oxygen 06/05/17 20:00 High Flow Oxygen 55 06/05/17 20:00 98 20 91 Nasal Cannula 55.0 80 06/05/17 19:59 36.2 96 23 119/60 (79) 89 High Flow Oxygen 06/05/17 16:00 High Flow Oxygen 55.0 50 06/05/17 14:55 36.8 85 20 113/62 (79) 92 High Flow Oxygen 06/05/17 14:15 84 20 92 Nasal Cannula 55.0 80 06/05/17 12:00 High Flow Oxygen 55.0 50 06/05/17 10:41 36.9 81 20 103/58 (73) 94 High Flow Oxygen Lab Results: Results Past 24 Hours Test 06/06/17 09:40 Range/Units White Blood Count 15.43 4.8-10.8 K/uL Red Blood Count 4.11 4.2-5.4 M/uL Hemoglobin 12.0 12.0-16.0 g/dL Hematocrit 35.8 37-47 % Mean Corpuscular Volume 87.1 80-100 fL Mean Corpuscular Hemoglobin 29.2 25-34 pg Mean Corpuscular Hemoglobin Concent 33.5 32-36 g/dl Platelet Count 329 130-400 K/uL Mean Platelet Volume 9.6 7.4-10.4 fL Neutrophils (%) (Auto) 82.0 % Lymphocytes (%) (Auto) 8.6 % Monocytes (%) (Auto) 4.3 % Eosinophils (%) (Auto) 0.1 % Basophils (%) (Auto) 0.1 % Neutrophils # (Auto) 12.66 1.4-6.5 K/uL Lymphocytes # (Auto) 1.33 1.2-3.4 K/uL Monocytes # (Auto) 0.66 0.11-0.59 K/uL Eosinophils # (Auto) 0.02 0-0.5 K/uL Basophils # (Auto) 0.01 0-0.2 K/uL RDW Standard Deviation 50.1 36.4-46.3 fL RDW Coefficient of Variation 15.8 11.5-14.5 % Immature Granulocyte % (Auto) 4.9 % Immature Granulocyte # (Auto) 0.75 0.00-0.02 K/uL Sodium Level 121 136-145 mmol/L Potassium Level 3.4 3.5-5.1 mmol/L Chloride Level 80 98-107 mmol/L Carbon Dioxide Level 35 21-32 mmol/L Anion Gap 6.0 3-11 mmol/L Blood Urea Nitrogen 27 7-18 mg/dl Creatinine 0.76 0.60-1.20 mg/dl Est Creatinine Clear Calc Drug Dose 63.5 ml/min Estimated GFR () 97.4 Estimated GFR (Non- 84.1 BUN/Creatinine Ratio 35.0 10-20 Random Glucose 151 70-99 mg/dl Calcium Level 9.4 8.5-10.1 mg/dl Magnesium Level 2.0 1.8-2.4 mg/dl Total Bilirubin 0.3 0.2-1 mg/dl Aspartate Amino Transf (AST/SGOT) 16 15-37 U/L Alanine Aminotransferase (ALT/SGPT) 15 12-78 U/L Alkaline Phosphatase 122 45-117 U/L Total Protein 7.5 6.4-8.2 gm/dl Albumin 3.1 3.4-5.0 gm/dl Globulin 4.4 2.5-4.0 gm/dl Albumin/Globulin Ratio 0.7 0.9-2
[2017-06-06] MEDS ORDERED: POTASSIUM CHLORIDE 10 MEQ TABCR PO STA (11:30)
--- NOTE | 2017-06-06 12:44 | Palliative Care Progress Note ---
Palliative Care Progress Note Date of Service Jun 06, 2017. Subjective Pt evaluation today including: conversation w/ family (, Charlie), conversation w/ health analytics consultant (Dr. Nicole) Met with patient's Charlie and Dr. Nicole for about 60 minutes. Patient had a "bad night," was a code purple for oxygen saturation in 70s and new crackles in bilateral bases. 40mg IV lasix given, oxygen increased to 15L. She did improve, oxygen weaned back down to 6L. Sodium low today at 121, potassium 3.4. Patient too weak to participate in therapy today, she is somnolent at this time. Charlie requested that we speak outside of room because patient was sleeping comfortably. is requesting a hospice referral to [facility] at this time (case operator is aware) to discuss options. At this time I would recommend transferring out of PCU to [facility] and starting comfort measures only, which was discussed with the by myself and Dr. Nicole. I still need to speak with the patient, but again Charlie asked that I not wake her up at this time. No decisions have been made yet. Will check back later.
--- NOTE | 2017-06-06 13:45 | Pulmonology Progress Note ---
Pulmonary Progress Note Date of Service Jun 06, 2017. Attending Dr. De La Paz Subjective Patient seen and examined. She states that she is feeling tired. A code purple was called and I was contacted last night for worsening hypoxia on HFNC. She was switched to 15L NRM with improvement of her SaO2 to 90's. She was given lasix and solumedrol IV. She states that her breathing feels improved today. She feels less congested. She denies any cough or chest pain. Objective VS reviewed. Tm 36.7, P 112/63-127/68, P 74-89, RR 15-22, Sao2 92-95%. She is currently on 5L NC. Gen: AAOx3, NAD, tachypneic, appears to be at baseline Lungs: CTA on anterior chest wall Abd; soft/NT/ND/BS+ Ext: bilateral clubbing, no cyanosis, no edema De La Paz catheter in place. Lab reviewed. Na 121, K 3.4, Cl 80, Cr 0.76. WBC 15, Hgb 12, Plt 329. Blood culture 05/23/2017: Micrococcus species in only 1 of 2 cultures Pulmonary function studies 12/25/2013 Spirometry: Moderately severe obstructive ventilatory disease Bronchodilator: No significant response Lung volumes: Within normal limits Diffusion: Moderately reduced at 41% corrects to 78% off alveolar volume Radiology: 06/06/2017 IMPRESSION: 1. Extensive opacities most concerning for superimposed edema or infection on chronic lung disease/emphysema. Chest x-ray 05/30/2017, diffuse interstitial thickening bilaterally CTA 04/17/2017: Diffuse interstitial lung changes, emphysema, no classic honeycomb fibrosis or cylindrical bronchiectasis CTA 12/18/2013: Diffuse emphysema some diffuse ground-glass changes with mediastinal lymphadenopathy Medications reviewed and listed below Assessment & Plan 61-year-old female with acute on chronic respiratory insufficiency/failure: COPD Pulmonary fibrosis Acute on chronic hypoxic respiratory failure Hyponatremia Continue with nasal canula to maintain SaO2>92%. She is now off of HFNC an on 5- 6L NC which is her baseline. Continue with Atrovent and Xopenex nebulizer Continue with Mucumyst and chest PT Continue with prednisone 40 mg daily Continue with Lasix, check electrolytes and replete Hyponatremia--most likely due to diuretics. Send work up. Her overall prognosis is poor and she appears to have end stage lung disease and is declining. I discussed with , Charlie and Dr. Nicole at length yesterday. Palliative care met with today as well--and is considering hospice care. Data Medications: Current Inpatient Medications Medications (Trade) Dose Ordered Sig/Bishnu Route Start Time Stop Time Status Last Admin Dose Admin Enoxaparin Sodium (Lovenox Inj) 40 mg Q24H SC 05/23/17 21:00 06/22/17 20:59 06/05/17 21:24 40 MG Acetaminophen (Tylenol Tab) 650 mg Q4H PRN PO 05/23/17 17:45 06/22/17 17:44 06/05/17 19:18 650 MG Ondansetron HCl (Zofran Inj) 4 mg Q6H PRN IV 05/23/17 17:45 06/22/17 17:44 Polyethylene (Miralax Powder Packet) 17 gm DAILY PRN PO 05/23/17 17:45 06/22/17 17:44 Potassium Chloride (Klor-Con Tab) 20 meq BID PO 05/23/17 21:00 06/22/17 20:59 06/06/17 08:11 20 MEQ Aspirin (Ecotrin Tab) 81 mg DAILY PO 05/24/17 09:00 06/23/17 08:59 06/06/17 08:11 81 MG Calcium/Vitamin D (Caltrate Plus Tab) 1 tab BID PO 05/23/17 21:00 06/22/17 20:59 06/06/17 08:11 1 TAB Famotidine (Pepcid Tab) 20 mg QPM PO 05/23/17 21:00 06/22/17 20:59 06/05/17 21:23 20 MG Metoprolol Tartrate (Lopressor Tab) 25 mg BID PO 05/23/17 21:00 06/22/17 20:59 06/06/17 08:11 25 MG Nortriptyline HCl (Pamelor Cap) 25 mg QAM PO 05/24/17 09:00 06/23/17 08:59 06/06/17 08:11 25 MG Rosuvastatin Calcium (Crestor Tab) 20 mg QPM PO 05/23/17 21:00 06/22/17 20:59 06/05/17 21:23 20 MG Sodium Chloride ([place] Nasal [place]) 2 sprays BID NA 05/23/17 21:00 06/22/17 20:59 06/06/17 08:11 2 SPRAYS Sertraline HCl (Zoloft Tab) 100 mg HS PO 05/23/17 21:00 06/22/17 20:59 06/05/17 21:23 100 MG Miscellaneous Information (Order Awaiting Action) 1 ea QS N/A 05/24/17 00:00 06/23/17 00:00 Acetylcysteine (Mucomyst 20% Inh Soln) 3 ml BIDR INH 05/23/17 21:00 06/22/17 20:59 06/06/17 07:46 3 ML Non-Formulary Medication (Non-Formulary Patient'S Own Med) 1 ea HS PO 05/24/17 21:00 06/23/17 20:59 06/05/17 21:22 1 EA Prednisone (PredniSONE TAB) 40 mg DAILY PO 05/30/17 09:00 06/29/17 08:59 06/06/17 08:12 40 MG Furosemide (Lasix Tab) 80 mg QAM PO 06/01/17 09:00 06/29/17 08:59 Future Hold 06/06/17 08:11 80 MG Ipratropium [place] (Atrovent 0.02% 0.5MG/2.5ML Neb) 0.5 mg Q4R INH 06/06/17 05:00 06/22/17 04:59 06/06/17 11:04 0.5 MG Levalbuterol (Xopenex 1.25MG/ 0.5ML Neb) 1.25 mg Q4R INH 06/06/17 05:00 06/22/17 04:59 06/06/17 11:05 1.25 MG Vital Signs: Date Time Temp Pulse Resp B/P (MAP) Pulse Ox O2 Delivery O2 Flow Rate FiO2 06/06/17 12:00 Oxymask 5.0 06/06/17 11:10 36.4 75 20 127/68 (87) 93 Oxymask 06/06/17 11:07 74 15 95 Mask 7.0 06/06/17 08:00 Nasal Cannula 6.0 Mask 06/06/17 07:46 82 20 94 Mask 6.0 06/06/17 07:25 36.7 89 20 116/68 (84) 92 Oxymask .0 06/06/17 04:00 High Flow Oxygen 55 06/06/17 03:15 36.7 80 18 112/63 (79) 94 Oxymask 15.0 06/06/17 02:29 80 22 94 Mask 15.0 06/06/17 00:00 High Flow Oxygen 55 06/05/17 23:30 36.5 88 20 112/60 (77) 90 High Flow Oxygen 06/05/17 20:00 High Flow Oxygen 55 06/05/17 20:00 98 20 91 Nasal Cannula 55.0 80 06/05/17 19:59 36.2 96 23 119/60 (79) 89 High Flow Oxygen 06/05/17 16:00 High Flow Oxygen 55.0 50 06/05/17 14:55 36.8 85 20 113/62 (79) 92 High Flow Oxygen 06/05/17 14:15 84 20 92 Nasal Cannula 55.0 80 Laboratory Results: Last 24 Hours Test 06/06/17 09:40 White Blood Count 15.43 K/uL Red Blood Count 4.11 M/uL Hemoglobin 12.0 g/dL Hematocrit 35.8 % Mean Corpuscular Volume 87.1 fL Mean Corpuscular Hemoglobin 29.2 pg Mean Corpuscular Hemoglobin Concent 33.5 g/dl Platelet Count 329 K/uL Mean Platelet Volume 9.6 fL Neutrophils (%) (Auto) 82.0 % Lymphocytes (%) (Auto) 8.6 % Monocytes (%) (Auto) 4.3 % Eosinophils (%) (Auto) 0.1 % Basophils (%) (Auto) 0.1 % Neutrophils # (Auto) 12.66 K/uL Lymphocytes # (Auto) 1.33 K/uL Monocytes # (Auto) 0.66 K/uL Eosinophils # (Auto) 0.02 K/uL Basophils # (Auto) 0.01 K/uL RDW Standard Deviation 50.1 fL RDW Coefficient of Variation 15.8 % Immature Granulocyte % (Auto) 4.9 % Immature Granulocyte # (Auto) 0.75 K/uL Sodium Level 121 mmol/L Potassium Level 3.4 mmol/L Chloride Level 80 mmol/L Carbon Dioxide Level 35 mmol/L Anion Gap 6.0 mmol/L Blood Urea Nitrogen 27 mg/dl Creatinine 0.76 mg/dl Est Creatinine Clear Calc Drug Dose 63.5 ml/min Estimated GFR () 97.4 Estimated GFR (Non- 84.1 BUN/Creatinine Ratio 35.0 Random Glucose 151 mg/dl Calcium Level 9.4 mg/dl Magnesium Level 2.0 mg/dl Total Bilirubin 0.3 mg/dl Aspartate Amino Transf (AST/SGOT) 16 U/L Alanine Aminotransferase (ALT/SGPT) 15 U/L Alkaline Phosphatase 122 U/L Total Protein 7.5 gm/dl Albumin 3.1 gm/dl Globulin 4.4 gm/dl Albumin/Globulin Ratio 0.7
[2017-06-06 17:41] LABS: BUN/CREATININE RATIO 31.1 (10-20); CALCIUM 9.1 mg/dl (8.5-10.1); CREATININE 0.77 mg/dl (0.60-1.20); POTASSIUM 3.5 mmol/L (3.5-5.1)
[2017-06-06] MEDS: ACETAMINOPHEN 325 MG TAB PO PRN (18:59)
[2017-06-06] MEDS: ROSUVASTATIN CALCIUM 20 MG TAB PO SCH (20:50)
[2017-06-06] MEDS: SERTRALINE HCL 50 MG TAB PO SCH (20:51)
[2017-06-06] MEDS: FAMOTIDINE 20 MG TAB PO SCH (20:52)
[2017-06-06] MEDS: ENOXAPARIN 40 MG/0.4 ML SYR SC SCH (20:52)
[2017-06-06] MEDS: [UNRECOGNIZED DRUG - OTHER] PO SCH (20:53)
[2017-06-07] VITALS (12 sets, daily range): BP systolic 102–131; BP diastolic 52–83; PULSE 75–98; TEMP 36.4–36.9; O2SAT 86–100
[2017-06-07] MEDS: LEVALBUTEROL 1.25MG/0.5ML NEB INH SCH ×5 (03:21→19:19)
[2017-06-07] MEDS: IPRATROPIUM BROMIDE NEB SOLN 0.02% 2.5 ML VIAL INH SCH ×5 (03:22→19:20)
[2017-06-07 06:16] LABS: BASO % 0.1 %; BASO ABS # 0.01 K/uL (0-0.2); COMPLETE YES; EOS % 1.9 %; HEMATOCRIT 32.6 % (37-47); IG% 2.4 %; LYMPH % 24.3 %; MEAN CELL VOLUME 87.6 fL (80-100); MEAN CORPUSCULAR HGB CONC 33.1 g/dl (32-36); MEAN PLATELET VOLUME 9.7 fL (7.4-10.4); MONO % 8.9 %; NEUT % 62.4 %; PLATELET COUNT 304 K/uL (130-400); RED BLOOD COUNT 3.72 M/uL (4.2-5.4); WHITE BLOOD COUNT 14.79 K/uL (4.8-10.8)
[2017-06-07 06:52] LABS: BUN/CREATININE RATIO 37.6 (10-20); CALCIUM 9.5 mg/dl (8.5-10.1); CREATININE 0.54 mg/dl (0.60-1.20); MAGNESIUM 1.9 mg/dl (1.8-2.4); POTASSIUM 3.3 mmol/L (3.5-5.1)
[2017-06-07] MEDS: ACETYLCYSTEINE 20% INHAL SOLN ***DISPENSED BY RESP. INH SCH ×2 (07:14→19:19)
[2017-06-07] MEDS ORDERED: POTASSIUM CHLORIDE 10 MEQ TABCR PO ONE (08:15)
[2017-06-07] MEDS: SODIUM CHLORIDE 0.65% NA SOLN 45 ML (OCEAN) SCH ×2 (08:26→20:25)
[2017-06-07] MEDS: NORTRIPTYLINE HCL 25 MG CAP PO SCH (08:27)
[2017-06-07] MEDS: ASPIRIN 81 MG ECTAB PO SCH (08:28)
[2017-06-07] MEDS: METOPROLOL TARTRATE 25 MG TAB PO SCH ×2 (08:28→20:24)
[2017-06-07] MEDS: POTASSIUM CHLORIDE 20 MEQ TABCR PO SCH ×2 (08:28→20:24)
[2017-06-07] MEDS: CALCIUM 600MG + VIT D 400 IU TAB PO SCH ×2 (08:29→20:24)
--- NOTE | 2017-06-07 08:41 | Nephrology Consultation ---
Nephrology Consultation Date of Consultation: Jun 07, 2017. Attending Physician: Dr Nicole Requesting Physician: Dr Nicole Reason for Consultation: hyponatremia History of Present Illness 61 year old female with end stage lung disease from copd, severe pulmonary fibrosis noted yesterday to have sNa 121. She was admitted here on 05/23 w/ acute on chronic respiratory failure and initially concern for health care associated pneumonia (pt had been admitted here earlier in summer and came to ED for this admission from rehab). Other PMH includes HTN, past stroke, HL, R heart failure from lung disease. her lung disease has progressed significantly in recent months: she was on 5L 02nc at baseline prior to admission; despite aggressive measures since admission she struggles and often cannot get out of bed or participate in PT, and goals of care w/ consideration of changing to comfort measures are under active discussion. She has not had issues w/ severe hyponatremia in the past at least on [facility] records. She had unremarkable serum chemistries on admission and after normal labs for about a week these were not actively followed after 05/31. she had 80 mg daily lasix po through 06/06 AM. She also had deterioration of her breathing status with a code purple on the evening of 06/05. and labs were resumed on 06/06 w/ sNa notable for 121 and K 3.5. She had had 2 doses of 20 mg IV lasix overnight 06/05-06/06. Repeat labs in the afternoon of 06/06 showed unchanged sodium and K levels. notes report pt as somnolent yesterday. Despite no diuretics shehas been consistently 600-1.2 mL negative daily x past 5 days on I/O. Past Medical/Surgical History Medical Problems: (1) Elevated troponin Status: Acute (2) Hypoxia Status: Acute (3) Hypoxia Status: Acute (4) Pneumonia Status: Acute (5) Pulmonary edema Status: Acute (6) Right patella fracture Status: Acute (7) Shortness of breath Status: Acute (8) UTI (urinary tract infection) Status: Acute (9) UTI (urinary tract infection) Status: Acute (10) Weakness Status: Acute Family History Cancer BROTHER (lung CA) Social History Smoking Status: Former Smoker Alcohol Use: none Drug Use: none Marital Status: Housing Status: lives with family Occupation Status: employed, disabled Allergies Coded Allergies: [place] Oil (Verified Adverse Reaction, Mild, GI UPSET, 05/20/17) Lactose Intolerance (GI) (Verified Adverse Reaction, Mild, GI SYMPTOMS, ) Morphine (Verified Adverse Reaction, Mild, confusion, 05/20/17) Medications Current Inpatient Medications Medications (Trade) Dose Ordered Sig/Bishnu Route Start Time Stop Time Status Last Admin Dose Admin Enoxaparin Sodium (Lovenox Inj) 40 mg Q24H SC 05/23/17 21:00 06/22/17 20:59 06/06/17 20:52 40 MG Acetaminophen (Tylenol Tab) 650 mg Q4H PRN PO 05/23/17 17:45 06/22/17 17:44 06/06/17 18:59 650 MG Ondansetron HCl (Zofran Inj) 4 mg Q6H PRN IV 05/23/17 17:45 06/22/17 17:44 Polyethylene (Miralax Powder Packet) 17 gm DAILY PRN PO 05/23/17 17:45 06/22/17 17:44 Potassium Chloride (Klor-Con Tab) 20 meq BID PO 05/23/17 21:00 06/22/17 20:59 06/06/17 20:51 20 MEQ Aspirin (Ecotrin Tab) 81 mg DAILY PO 05/24/17 09:00 06/23/17 08:59 06/06/17 08:11 81 MG Calcium/Vitamin D (Caltrate Plus Tab) 1 tab BID PO 05/23/17 21:00 06/22/17 20:59 06/06/17 20:50 1 TAB Famotidine (Pepcid Tab) 20 mg QPM PO 05/23/17 21:00 06/22/17 20:59 06/06/17 20:52 20 MG Metoprolol Tartrate (Lopressor Tab) 25 mg BID PO 05/23/17 21:00 06/22/17 20:59 06/06/17 20:51 25 MG Nortriptyline HCl (Pamelor Cap) 25 mg QAM PO 05/24/17 09:00 06/23/17 08:59 06/06/17 08:11 25 MG Rosuvastatin Calcium (Crestor Tab) 20 mg QPM PO 05/23/17 21:00 06/22/17 20:59 06/06/17 20:50 20 MG Sodium Chloride ([place] Nasal [place]) 2 sprays BID NA 05/23/17 21:00 06/22/17 20:59 06/06/17 20:49 2 SPRAYS Sertraline HCl (Zoloft Tab) 100 mg HS PO 05/23/17 21:00 06/22/17 20:59 06/06/17 20:51 100 MG Miscellaneous Information (Order Awaiting Action) 1 ea QS N/A 05/24/17 00:00 06/23/17 00:00 Acetylcysteine (Mucomyst 20% Inh Soln) 3 ml BIDR INH 05/23/17 21:00 06/22/17 20:59 06/06/17 19:39 3 ML Non-Formulary Medication (Non-Formulary Patient'S Own Med) 1 ea HS PO 05/24/17 21:00 06/23/17 20:59 06/06/17 20:53 1 EA Prednisone (PredniSONE TAB) 40 mg DAILY PO 05/30/17 09:00 06/29/17 08:59 06/06/17 08:12 40 MG Furosemide (Lasix Tab) 80 mg QAM PO 06/01/17 09:00 06/29/17 08:59 Future Hold 06/06/17 08:11 80 MG Ipratropium [place] (Atrovent 0.02% 0.5MG/2.5ML Neb) 0.5 mg Q4R INH 06/06/17 05:00 06/22/17 04:59 06/07/17 03:22 0.5 MG Levalbuterol (Xopenex 1.25MG/ 0.5ML Neb) 1.25 mg Q4R INH 06/06/17 05:00 06/22/17 04:59 06/07/17 03:21 1.25 MG Home Meds and Scripts Medications Dose Route/Sig Max Daily Dose Days Date Category Dose Instructions Prednisone 10 Mg Tab 10 Mg PO DAILY 05/20/17 Reported Apap (Acetaminophen) 325 Mg Tab 325 Mg PO Q4 PRN 05/20/17 Reported Micro-K Ext Rel (Potassium Chloride) 10 Meq Capcr 10 Meq PO DAILY 30 04/21/17 Rx Furosemide 20 Mg Tab 20 Mg PO QAM 30 04/21/17 Rx Sertraline HCl 50 Mg Tab 100 Mg PO HS 30 04/21/17 Rx Spiriva [place] (Tiotropium [place]) 5 Puff/90 Mcg Aerp 1 Puff INH QAM 04/21/17 Rx Lopressor (Metoprolol Tartrate) 25 Mg Tab 25 Mg PO BID 04/17/17 Reported Saline Nasal [place] (Saline) 0.65 % Spr 2 Sprays NA BID 04/06/17 Rx Levalbuterol 1.25 Mg/0.5 Ml Nebu 1.25 Mg INH Q4H PRN 10 04/06/17 Rx Proair Respiclick (Albuterol Sulfate) 108 Mcg/Act Aer 2 Puffs INH Q4H PRN 03/23/17 Reported [Alteril] 0.5 Cap PO HS 04/07/16 Reported Oxygen Gas 3 Liters NA PRN 04/06/16 Reported Crestor (Rosuvastatin Calcium) 20 Mg Tab 20 Mg PO QPM 03/20/16 Reported Imodium (Loperamide HCl) 2 Mg Cap 2 Mg PO UD 08/03/15 Reported Take 1 tab by mouth once. Then take 1 tablet after each loose BM. No more than 4 tablets per day for up to 2 days. Lomotil (Diphenoxylate HCl/Atropine) Tab 1 Tab PO BID PRN 08/03/15 Reported Aspirin Ec (Aspirin) 81 Mg Tab 81 Mg PO DAILY 04/29/15 Reported Pamelor (Nortriptyline Hcl) 25 Mg Cap 25 Mg PO QAM 04/29/15 Reported Vesicare (Solifenacin Succinate) 5 Mg Tab 5 Mg PO QAM 04/29/15 Reported Symbicort 80/4.5 Inhaler (Budesonide/Formoterol Fumarate) 120 Puffs/ Aero 2 Puffs INH BID 04/29/15 Reported Os-Harman 500 Plus D (Calcium/Vitamin D) Tab 1 Tab PO BID 02/14/13 Reported Pepcid (Famotidine) 20 Mg Tab 20 Mg PO QPM 02/14/13 Reported Librax 5MG/2.5MG (Chlordiazepoxide/Clidinium) 1 Ea Cap 1 Ea PO BID 09/07/12 Reported Review of Systems Constitutional: + weakness, + fatigue, No chills Eyes: No worsening of vision ENT: No hearing loss Respiratory: + cough, + shortness of breath (stable chronic), + dyspnea on exertion (stable chronic w/ minimal exertion) Cardiac: + edema, No chest pain, No palpitations Abdomen: + problem reported (denies change in chronic severe thirst), No pain, No nausea, No vomiting, No diarrhea, No constipation Musculoskeletal: No joint pain, No muscle pain Female : + problem reported (n/a garcia present) Psych: No depression symptoms, No anxiety Heme: No abnormal bleeding/bruising Endo: + fatigue Skin: No rash, No new/changing skin lesions Physical Exam Date Time Temp Pulse Resp B/P (MAP) Pulse Ox O2 Delivery O2 Flow Rate FiO2 06/07/17 04:30 36.7 76 22 121/64 (83) 100 Oxymask 8.0 06/07/17 04:00 Oxymask 9.0 06/07/17 03:22 75 16 93 Mask 9.0 06/06/17 23:59 Oxymask 9.0 06/06/17 23:25 36.7 80 22 109/65 (80) 93 Oxymask 8.0 06/06/17 23:15 78 18 92 Mask 9.0 06/06/17 20:00 Oxymask 9.0 Mask 06/06/17 19:39 101 20 96 Mask 9.0 06/06/17 19:38 36.6 98 24 115/67 (83) 94 High Flow Oxygen 9.0 06/06/17 16:00 Oxymask 9.0 Mask 06/06/17 15:28 81 16 90 Mask 8.0 06/06/17 15:18 36.7 84 18 102/63 (76) 89 Oxymask 9.0 06/06/17 12:00 Oxymask 5.0 06/06/17 11:10 36.4 75 20 127/68 (87) 93 Oxymask 06/06/17 11:07 74 15 95 Mask 7.0 06/06/17 08:00 Nasal Cannula 6.0 Mask 06/06/17 07:46 82 20 94 Mask 6.0 06/06/17 07:25 36.7 89 20 116/68 (84) 92 Oxymask 9.0 General Appearance: no apparent distress, + thin, + pertinent finding ( chronically ill on high flow 02) Eyes: EOMI ENT: hearing grossly normal Neck: supple Respiratory/Chest: no respiratory distress, + decreased breath sounds, + crackles Cardiovascular: no edema Abdomen: normal bowel sounds, non tender, soft, + pertinent finding (garcia w/ ample urine) Extremities: + pertinent finding (clubbing upper and lower extremities) Neurologic/Psych: alert, normal mood/affect, oriented x 3 Skin: no jaundice, warm/dry, no rash Diagnostics Last 24 Hours Test 06/06/17 09:40 06/06/17 17:02 06/07/17 05:41 White Blood Count 15.43 K/uL Red Blood Count 4.11 M/uL Hemoglobin 12.0 g/dL Hematocrit 35.8 % Mean Corpuscular Volume 87.1 fL Mean Corpuscular Hemoglobin 29.2 pg Mean Corpuscular Hemoglobin Concent 33.5 g/dl Platelet Count 329 K/uL Mean Platelet Volume 9.6 fL Neutrophils (%) (Auto) 82.0 % Lymphocytes (%) (Auto) 8.6 % Monocytes (%) (Auto) 4.3 % Eosinophils (%) (Auto) 0.1 % Basophils (%) (Auto) 0.1 % Neutrophils # (Auto) 12.66 K/uL Lymphocytes # (Auto) 1.33 K/uL Monocytes # (Auto) 0.66 K/uL Eosinophils # (Auto) 0.02 K/uL Basophils # (Auto) 0.01 K/uL RDW Standard Deviation 50.1 fL RDW Coefficient of Variation 15.8 % Immature Granulocyte % (Auto) 4.9 % Immature Granulocyte # (Auto) 0.75 K/uL Sodium Level 121 mmol/L 121 mmol/L Potassium Level 3.4 mmol/L 3.5 mmol/L Chloride Level 80 mmol/L 78 mmol/L Carbon Dioxide Level 35 mmol/L 35 mmol/L Anion Gap 6.0 mmol/L 8.0 mmol/L Blood Urea Nitrogen 27 mg/dl 24 mg/dl Creatinine 0.76 mg/dl 0.77 mg/dl Est Creatinine Clear Calc Drug Dose 63.5 ml/min 62.7 ml/min Estimated GFR () 97.4 95.9 Estimated GFR (Non- 84.1 82.8 BUN/Creatinine Ratio 35.0 31.1 Random Glucose 151 mg/dl 128 mg/dl Calcium Level 9.4 mg/dl 9.1 mg/dl Magnesium Level 2.0 mg/dl Total Bilirubin 0.3 mg/dl Aspartate Amino Transf (AST/SGOT) 16 U/L Alanine Aminotransferase (ALT/SGPT) 15 U/L Alkaline Phosphatase 122 U/L Total Protein 7.5 gm/dl Albumin 3.1 gm/dl Globulin 4.4 gm/dl Albumin/Globulin Ratio 0.7 Diagnostic Radiology: cxr 06/06 >> extensive BL reticular / ground glass opacities>> infection or edema superimposed on chronic lung disease CT chest 03/2017 advanced emphysema and superimposed ISLD Assessment & Plan 61 y/o F w/ severe and progressive pulmonary fibrosis w/ R HF noted on recheck of labs after 1 week hiatus to have sNa 121. one of the first questions clinically will be to clarify goals of care for this pt as this serum sodium will not be corrected without frequent lab testing every 4-6 hrs and w/ possibility for challenges / acute changes in her respiratory status as we try to correct her sodium levels likely w/ lasix and/or IV fluids. Hypotonic hyponatremia, suspect hypovolemic; suspect this is chronic (ie, of duration >48hrs) and not acutely symptomatic (ie, no seizures, marked change in ms) -she needs small fluid infusion NS 250 mL which i will give slowly -clarify goals of care as above; will for now assume we are continuing w/ lab draws and possible changes in resp status which I did d/w pt -bmp at noon and 1800 today urgent ordered -goal sNa for tomorrow is 128 -lasix for now is prn only for breathing -more information needed including serum osms, urine studies; f/u labs from today>> urine study ordered yesterday not yet sent and amended as urgent to be resent -recommend retaining garcia for adequate I/O -agree w/ standing K and w/ extra 30 mEq given this am Appreciate consult; will follow with you.
[2017-06-07] MEDS ORDERED: SODIUM CHLORIDE 0.9% 250ML 250 ML IV ONE (08:45)
[2017-06-07 13:10] LABS: BUN/CREATININE RATIO 31.4 (10-20); CALCIUM 9.7 mg/dl (8.5-10.1); CREATININE 0.65 mg/dl (0.60-1.20); POTASSIUM 4.4 mmol/L (3.5-5.1)
[2017-06-07 19:31] LABS: BUN/CREATININE RATIO 26.2 (10-20); CALCIUM 8.4 mg/dl (8.5-10.1); CREATININE 0.7 mg/dl (0.60-1.20); POTASSIUM 4.4 mmol/L (3.5-5.1)
--- NOTE | 2017-06-07 19:52 | Progress Note ---
Internal Med Progress Note Date of Service: Jun 07, 2017. Provider Documentation: SUBJECTIVE: feeling better today no sob or any pain afebrile eating ok moved bowels couple of days ago OBJECTIVE: Vital Signs-as noted below Exam: General-alert and oriented. ENT-normal hearing Neck-no neck masses Lungs-cta b/l no wheezing bibasilar crackles Heart-s1 and s2 heard regular rhythm, no murmurs Abdomen-soft bowel sounds present non tender no distension Extremities no edema present no erythema Neuro-alert and oriented moves extremities Lab data as noted below. ASSESSMENT & PLAN: This is a 61yo female with a PMH of chronic respiratory failure 2/2 COPD, pulmonary fibrosis (on home O2), R sided HF, HTN who presents in acute respiratory failure after home health nurse found her to be hypoxic at 57%. Acute on chronic hypoxic respiratory failure: acute copd and ILD flare Health care pneumonia- possible gm negative or mrsa Baseline of 88% on chronic O2 therapy at home (5L NC) Found to be hypoxic at 57% prior to arrival in ED initially required NRB mask later was on high flow oxygen for couple of day Was on iv steroids, iv Levaquin and vancomycin - completed abx course Chest PT, Mucomyst 3 ML twice a day, flutter valve as per pulmonary tapering steroids- very slow taper as per pulmonary currently lasix on hold for hyponatremia Long discussion with patient about future plan of care by palliative care, pulmonary and myself. Today decided not to go for comfort care at this time but he is ok moving to 4th floor if stable will move to fourth floor in am Hyponatremia was 121 yestrday and 123 to 126 today Lasix on hold' nephrology gave 250ml fluid and recommends to use Lasix on prn basis will f/u labs Sepsis 2/2 PNA, UTI: on abx as above will f/u cx one bottle micrococcus -contaminant? repeat cx negative completed 10day abx course Acute on chronic R-sided Heart Failure, Preserved Ef: secondary underlying pulmonary disease Echo (04/10) with preserved EF: 65-70% but elevated R ventricular systolic pressure on iv Lasix 40mg bid f/u i/o's and daily weights continue same for now currently on Lasix 80mg po daily will f/u cxr- some what better holding Lasix for hyponatremia to use Lasix on prn basis will monitor HTN: Stable on Lasix, metoprolol will monitor Code staus level 5 DVT PROPHYLAXIS Lovenox DISPOSITION monitor in tele for now pt/ot social service for d/c planning Vital Signs: Date Time Temp Pulse Resp B/P (MAP) Pulse Ox O2 Delivery O2 Flow Rate FiO2 06/07/17 19:22 36.6 98 21 105/83 (90) 94 Oxymask 6.0 06/07/17 19:20 96 16 94 Mask 10.0 06/07/17 16:08 81 16 94 Mask 10.0 06/07/17 16:00 Oxymask 10.0 06/07/17 15:27 36.9 84 17 131/68 (89) 94 Oxymask 10.0 06/07/17 12:00 Nasal Cannula 6.0 Mask 06/07/17 11:27 36.7 77 20 126/73 (90) 93 Nasal Cannula 6.0 06/07/17 11:20 77 16 91 Mask 10.0 06/07/17 08:25 94 Nasal Cannula 6.0 06/07/17 08:00 Nasal Cannula 6.0 Mask 06/07/17 07:45 36.4 91 20 114/68 (83) 86 Nasal Cannula 6.0 06/07/17 07:20 78 16 91 Mask 9.0 06/07/17 04:30 36.7 76 22 121/64 (83) 100 Oxymask 8.0 06/07/17 04:00 Oxymask 9.0 06/07/17 03:22 75 16 93 Mask 9.0 06/06/17 23:59 Oxymask 9.0 06/06/17 23:25 36.7 80 22 109/65 (80) 93 Oxymask 8.0 06/06/17 23:15 78 18 92 Mask 9.0 06/06/17 20:00 Oxymask 9.0 Mask Lab Results: Results Past 24 Hours Test 06/07/17 05:41 06/07/17 08:32 06/07/17 12:20 06/07/17 18:54 Range/Units White Blood Count 14.79 4.8-10.8 K/uL Red Blood Count 3.72 4.2-5.4 M/uL Hemoglobin 10.8 12.0-16.0 g/dL Hematocrit 32.6 37-47 % Mean Corpuscular Volume 87.6 80-100 fL Mean Corpuscular Hemoglobin 29.0 25-34 pg Mean Corpuscular Hemoglobin Concent 33.1 32-36 g/dl Platelet Count 304 130-400 K/uL Mean Platelet Volume 9.7 7.4-10.4 fL Neutrophils (%) (Auto) 62.4 % Lymphocytes (%) (Auto) 24.3 % Monocytes (%) (Auto) 8.9 % Eosinophils (%) (Auto) 1.9 % Basophils (%) (Auto) 0.1 % Neutrophils # (Auto) 9.22 1.4-6.5 K/uL Lymphocytes # (Auto) 3.60 1.2-3.4 K/uL Monocytes # (Auto) 1.32 0.11-0.59 K/uL Eosinophils # (Auto) 0.28 0-0.5 K/uL Basophils # (Auto) 0.01 0-0.2 K/uL RDW Standard Deviation 51.0 36.4-46.3 fL RDW Coefficient of Variation 15.8 11.5-14.5 % Immature Granulocyte % (Auto) 2.4 % Immature Granulocyte # (Auto) 0.36 0.00-0.02 K/uL Sodium Level 123 123 126 136-145 mmol/L Potassium Level 3.3 4.4 4.4 3.5-5.1 mmol/L Chloride Level 82 85 88 98-107 mmol/L Carbon Dioxide Level 36 30 32 21-32 mmol/L Anion Gap 5.0 8.0 6.0 3-11 mmol/L Blood Urea Nitrogen 20 20 18 7-18 mg/dl Creatinine 0.54 0.65 0.70 0.60-1.20 mg/dl Est Creatinine Clear Calc Drug Dose 89.4 74.2 68.9 ml/min Estimated GFR () 117.2 110.3 107.6 Estimated GFR (Non- 101.1 95.2 92.9 BUN/Creatinine Ratio 37.6 31.4 26.2 10-20 Random Glucose 95 125 159 70-99 mg/dl Osmolality 262 280-300 mOsm/kg Calcium Level 9.5 9.7 8.4 8.5-10.1 mg/dl Magnesium Level 1.9 1.8-2.4 mg/dl Urine Osmolality 586 500-800 mOms/kg Urine Random Sodium 6 mEq/L
[2017-06-07] MEDS: SERTRALINE HCL 50 MG TAB PO SCH (20:23)
[2017-06-07] MEDS: FAMOTIDINE 20 MG TAB PO SCH (20:23)
[2017-06-07] MEDS: [UNRECOGNIZED DRUG - OTHER] PO SCH (20:24)
[2017-06-07] MEDS: ROSUVASTATIN CALCIUM 20 MG TAB PO SCH (20:24)
[2017-06-07] MEDS: ENOXAPARIN 40 MG/0.4 ML SYR SC SCH (20:27)
[2017-06-08] VITALS (14 sets, daily range): BP systolic 107–135; BP diastolic 58–73; PULSE 82–91; TEMP 36.4–36.8; O2SAT 90–98
[2017-06-08] MEDS: IPRATROPIUM BROMIDE NEB SOLN 0.02% 2.5 ML VIAL INH SCH ×7 (00:03→23:24)
[2017-06-08] MEDS: LEVALBUTEROL 1.25MG/0.5ML NEB INH SCH ×7 (00:03→23:24)
[2017-06-08] MEDS: ACETYLCYSTEINE 20% INHAL SOLN ***DISPENSED BY RESP. INH SCH ×2 (07:13→20:30)
[2017-06-08 07:36] LABS: BASO % 0.1 %; BASO ABS # 0.01 K/uL (0-0.2); COMPLETE YES; EOS % 2.1 %; HEMATOCRIT 31.8 % (37-47); IG% 3.9 %; LYMPH % 23.5 %; LYMPH ABS # 3.51 K/uL (1.2-3.4); MEAN CELL VOLUME 90.1 fL (80-100); MEAN CORPUSCULAR HEMOGLOBIN 28.9 pg (25-34); MEAN CORPUSCULAR HGB CONC 32.1 g/dl (32-36); MEAN PLATELET VOLUME 9.7 fL (7.4-10.4); MONO % 7.4 %; PLATELET COUNT 292 K/uL (130-400); RED BLOOD COUNT 3.53 M/uL (4.2-5.4); WHITE BLOOD COUNT 14.94 K/uL (4.8-10.8)
[2017-06-08 08:08] LABS: BUN/CREATININE RATIO 30.2 (10-20); CREATININE 0.55 mg/dl (0.60-1.20); MAGNESIUM 1.8 mg/dl (1.8-2.4); POTASSIUM 4.4 mmol/L (3.5-5.1)
[2017-06-08] MEDS: ACETAMINOPHEN 325 MG TAB PO PRN ×2 (08:15→19:13)
[2017-06-08] MEDS: SODIUM CHLORIDE 0.65% NA SOLN 45 ML (OCEAN) SCH ×2 (08:15→20:18)
[2017-06-08] MEDS: POTASSIUM CHLORIDE 20 MEQ TABCR PO SCH (08:16)
[2017-06-08] MEDS: METOPROLOL TARTRATE 25 MG TAB PO SCH ×2 (08:16→20:19)
[2017-06-08] MEDS: ASPIRIN 81 MG ECTAB PO SCH (08:17)
[2017-06-08] MEDS: NORTRIPTYLINE HCL 25 MG CAP PO SCH (08:17)
[2017-06-08] MEDS: CALCIUM 600MG + VIT D 400 IU TAB PO SCH ×2 (08:17→20:18)
[2017-06-08 12:25] LABS: BUN/CREATININE RATIO 32.7 (10-20); CREATININE 0.52 mg/dl (0.60-1.20); POTASSIUM 5.2 mmol/L (3.5-5.1)
--- NOTE | 2017-06-08 15:54 | Progress Note ---
Internal Med Progress Note Date of Service: Jun 08, 2017. Provider Documentation: SUBJECTIVE: could not sleep well last night denies sob or cough no chest pain afebrile eating ok ok for medical floor OBJECTIVE: Vital Signs-as noted below Exam: General-alert and oriented. ENT-normal hearing Neck-no neck masses Lungs-cta b/l no wheezing bibasilar crackles Heart-s1 and s2 heard regular rhythm, no murmurs Abdomen-soft bowel sounds present non tender no distension Extremities no edema present no erythema Neuro-alert and oriented moves extremities Lab data as noted below. ASSESSMENT & PLAN: This is a 61yo female with a PMH of chronic respiratory failure 2/2 COPD, pulmonary fibrosis (on home O2), R sided HF, HTN who presents in acute respiratory failure after home health nurse found her to be hypoxic at 57%. Acute on chronic hypoxic respiratory failure: acute copd and ILD flare Health care pneumonia- possible gm negative or mrsa Baseline of 88% on chronic O2 therapy at home (5L NC) Found to be hypoxic at 57% prior to arrival in ED initially required NRB mask later was on high flow oxygen for couple of day Was on iv steroids, iv Levaquin and vancomycin - completed abx course Chest PT, Mucomyst 3 ML twice a day, flutter valve as per pulmonary tapering steroids- very slow taper as per pulmonary currently lasix on hold for hyponatremia Long discussion with patient about future plan of care by palliative care, pulmonary and myself. Today decided not to go for comfort care at this time but he is ok moving to 4th floor Transferring to medical floor and monitor Hyponatremia was 121 yestrday and 123 to 126 today Lasix on hold' nephrology gave 250ml fluid and recommends to use Lasix on prn basis will f/u labs na 122 today. May need some fluids await nephro recommendations Hyperkalemia potassium 5.2 today hold kcl supplementsf/u labs in am Sepsis 2/2 PNA, UTI: on abx as above will f/u cx one bottle micrococcus -contaminant? repeat cx negative completed 10day abx course stable Acute on chronic R-sided Heart Failure, Preserved Ef: secondary underlying pulmonary disease Echo (04/10) with preserved EF: 65-70% but elevated R ventricular systolic pressure on iv Lasix 40mg bid f/u i/o's and daily weights continue same for now currently on Lasix 80mg po daily will f/u cxr- some what better holding Lasix for hyponatremia to use Lasix on prn basis will monitor HTN: Stable on Lasix, metoprolol will monitor Code staus level 5 DVT PROPHYLAXIS Lovenox DISPOSITION transferring to medical floor to be determined social service for d/c planning Vital Signs: Date Time Temp Pulse Resp B/P (MAP) Pulse Ox O2 Delivery O2 Flow Rate FiO2 06/08/17 15:35 89 16 92 Mask 10.0 06/08/17 15:28 36.8 82 20 109/70 (83) 96 Nasal Cannula 10.0 06/08/17 11:20 89 16 91 Mask 10.0 06/08/17 10:27 36.4 87 22 91 10.0 06/08/17 07:21 36.4 87 22 135/71 (92) 91 Oxymask 10.0 06/08/17 07:16 85 16 92 Mask 10.0 06/08/17 04:25 36.8 85 26 107/58 (74) 91 Oxymask 10.0 06/08/17 04:00 90 Oxymask 10.0 06/08/17 03:04 88 16 95 Mask 10.0 06/08/17 00:03 84 16 95 Mask 10.0 06/07/17 23:59 Oxymask 10.0 06/07/17 23:05 36.8 82 22 102/52 (69) 91 Oxymask 10.0 06/07/17 20:00 Oxymask 10.0 06/07/17 19:22 36.6 98 21 105/83 (90) 94 Oxymask 6.0 06/07/17 19:20 96 16 94 Mask 10.0 06/07/17 16:08 81 16 94 Mask 10.0 06/07/17 16:00 Oxymask 10.0 Lab Results: Results Past 24 Hours Test 06/07/17 18:54 06/08/17 01:00 06/08/17 07:05 06/08/17 10:55 Range/Units Sodium Level 126 124 136-145 mmol/L Potassium Level 4.4 4.4 3.5-5.1 mmol/L Chloride Level 88 89 98-107 mmol/L Carbon Dioxide Level 32 30 21-32 mmol/L Anion Gap 6.0 5.0 3-11 mmol/L Blood Urea Nitrogen 18 17 7-18 mg/dl Creatinine 0.70 0.55 0.60-1.20 mg/dl Est Creatinine Clear Calc Drug Dose 68.9 95.0 ml/min Estimated GFR () 107.6 116.5 Estimated GFR (Non- 92.9 100.5 BUN/Creatinine Ratio 26.2 30.2 10-20 Random Glucose 159 96 70-99 mg/dl Calcium Level 8.4 9.0 8.5-10.1 mg/dl Urine Osmolality 649 616 500-800 mOms/kg Urine Random Sodium 11 6 mEq/L White Blood Count 14.94 4.8-10.8 K/uL Red Blood Count 3.53 4.2-5.4 M/uL Hemoglobin 10.2 12.0-16.0 g/dL Hematocrit 31.8 37-47 % Mean Corpuscular Volume 90.1 80-100 fL Mean Corpuscular Hemoglobin 28.9 25-34 pg Mean Corpuscular Hemoglobin Concent 32.1 32-36 g/dl Platelet Count 292 130-400 K/uL Mean Platelet Volume 9.7 7.4-10.4 fL Neutrophils (%) (Auto) 63.0 % Lymphocytes (%) (Auto) 23.5 % Monocytes (%) (Auto) 7.4 % Eosinophils (%) (Auto) 2.1 % Basophils (%) (Auto) 0.1 % Neutrophils # (Auto) 9.41 1.4-6.5 K/uL Lymphocytes # (Auto) 3.51 1.2-3.4 K/uL Monocytes # (Auto) 1.10 0.11-0.59 K/uL Eosinophils # (Auto) 0.32 0-0.5 K/uL Basophils # (Auto) 0.01 0-0.2 K/uL RDW Standard Deviation 54.0 36.4-46.3 fL RDW Coefficient of Variation 16.4 11.5-14.5 % Immature Granulocyte % (Auto) 3.9 % Immature Granulocyte # (Auto) 0.59 0.00-0.02 K/uL Magnesium Level 1.8 1.8-2.4 mg/dl Chemistry Specimen Hemolysis Test 06/08/17 11:45 Range/Units Sodium Level 122 136-145 mmol/L Potassium Level 5.2 3.5-5.1 mmol/L Chloride Level 87 98-107 mmol/L Carbon Dioxide Level 30 21-32 mmol/L Anion Gap 5.0 3-11 mmol/L Blood Urea Nitrogen 17 7-18 mg/dl Creatinine 0.52 0.60-1.20 mg/dl Est Creatinine Clear Calc Drug Dose 100.4 ml/min Estimated GFR () 118.7 Estimated GFR (Non- 102.4 BUN/Creatinine Ratio 32.7 10-20 Random Glucose 91 70-99 mg/dl Calcium Level 9.0 8.5-10.1 mg/dl
--- NOTE | 2017-06-08 16:06 | Pulmonology Progress Note ---
Pulmonary Progress Note Date of Service Jun 08, 2017. Attending Dr. De La Paz Subjective Patient seen and examined. She states she is feeling better. She denies any shortness of breath. Objective VS reviewed. She is currently on 10 L face mask. She appears to be in no acute respiratory distress Gen: AAOx3, NAD, tachypneic, appears to be at baseline Lungs: CTA on anterior chest wall, bibasilar crackles Abd; soft/NT/ND/BS+ Ext: bilateral clubbing, no cyanosis, no edema De La Paz catheter in place. Lab reviewed. Na 121, K 3.4, Cl 80, Cr 0.76. WBC 15, Hgb 12, Plt 329. Blood culture 05/23/2017: Micrococcus species in only 1 of 2 cultures Pulmonary function studies 12/25/2013 Spirometry: Moderately severe obstructive ventilatory disease Bronchodilator: No significant response Lung volumes: Within normal limits Diffusion: Moderately reduced at 41% corrects to 78% off alveolar volume Radiology: 06/06/2017 IMPRESSION: 1. Extensive opacities most concerning for superimposed edema or infection on chronic lung disease/emphysema. Chest x-ray 05/30/2017, diffuse interstitial thickening bilaterally CTA 04/17/2017: Diffuse interstitial lung changes, emphysema, no classic honeycomb fibrosis or cylindrical bronchiectasis CTA 12/18/2013: Diffuse emphysema some diffuse ground-glass changes with mediastinal lymphadenopathy Medications reviewed and listed below Assessment & Plan 61-year-old female with acute on chronic respiratory insufficiency/failure: COPD Pulmonary fibrosis Acute on chronic hypoxic respiratory failure Hyponatremia Continue with nasal canula to maintain SaO2>92%. Continue with Atrovent and Xopenex nebulizer Continue with Mucumyst and chest PT Continue with prednisone 40 mg daily check electrolytes and replete Hyponatremia--most likely due to diuretics. Nephrology on board giving NS Her overall prognosis is poor and she appears to have end stage lung disease and is declining. I discussed with , Charlie and Dr. Nicole at length. Palliative care is on board and following. Data Medications: Current Inpatient Medications Medications (Trade) Dose Ordered Sig/Bishnu Route Start Time Stop Time Status Last Admin Dose Admin Enoxaparin Sodium (Lovenox Inj) 40 mg Q24H SC 05/23/17 21:00 06/22/17 20:59 06/07/17 20:27 40 MG Acetaminophen (Tylenol Tab) 650 mg Q4H PRN PO 05/23/17 17:45 06/22/17 17:44 06/08/17 08:15 650 MG Ondansetron HCl (Zofran Inj) 4 mg Q6H PRN IV 05/23/17 17:45 06/22/17 17:44 Polyethylene (Miralax Powder Packet) 17 gm DAILY PRN PO 05/23/17 17:45 06/22/17 17:44 Potassium Chloride (Klor-Con Tab) 20 meq BID PO 05/23/17 21:00 06/22/17 20:59 06/08/17 08:16 20 MEQ Aspirin (Ecotrin Tab) 81 mg DAILY PO 05/24/17 09:00 06/23/17 08:59 06/08/17 08:17 81 MG Calcium/Vitamin D (Caltrate Plus Tab) 1 tab BID PO 05/23/17 21:00 06/22/17 20:59 06/08/17 08:17 1 TAB Famotidine (Pepcid Tab) 20 mg QPM PO 05/23/17 21:00 06/22/17 20:59 06/07/17 20:23 20 MG Metoprolol Tartrate (Lopressor Tab) 25 mg BID PO 05/23/17 21:00 06/22/17 20:59 06/08/17 08:16 25 MG Nortriptyline HCl (Pamelor Cap) 25 mg QAM PO 05/24/17 09:00 06/23/17 08:59 06/08/17 08:17 25 MG Rosuvastatin Calcium (Crestor Tab) 20 mg QPM PO 05/23/17 21:00 06/22/17 20:59 06/07/17 20:24 20 MG Sodium Chloride ([place] Nasal [place]) 2 sprays BID NA 05/23/17 21:00 06/22/17 20:59 06/08/17 08:15 2 SPRAYS Sertraline HCl (Zoloft Tab) 100 mg HS PO 05/23/17 21:00 06/22/17 20:59 06/07/17 20:23 100 MG Miscellaneous Information (Order Awaiting Action) 1 ea QS N/A 05/24/17 00:00 06/23/17 00:00 Acetylcysteine (Mucomyst 20% Inh Soln) 3 ml BIDR INH 05/23/17 21:00 06/22/17 20:59 06/08/17 07:13 3 ML Non-Formulary Medication (Non-Formulary Patient'S Own Med) 1 ea HS PO 05/24/17 21:00 06/23/17 20:59 06/07/17 20:24 1 EA Prednisone (PredniSONE TAB) 40 mg DAILY PO 05/30/17 09:00 06/29/17 08:59 06/08/17 08:17 40 MG Ipratropium [place] (Atrovent 0.02% 0.5MG/2.5ML Neb) 0.5 mg Q4R INH 06/06/17 05:00 06/22/17 04:59 06/08/17 15:35 0.5 MG Levalbuterol (Xopenex 1.25MG/ 0.5ML Neb) 1.25 mg Q4R INH 06/06/17 05:00 06/22/17 04:59 06/08/17 15:35 1.25 MG I & O: 24-Hour Column 06/09/17 08:00 Intake Total 570 ml Output Total 575 ml Balance -5 ml Vital Signs: Date Time Temp Pulse Resp B/P (MAP) Pulse Ox O2 Delivery O2 Flow Rate FiO2 06/08/17 15:35 89 16 92 Mask 10.0 06/08/17 15:28 36.8 82 20 109/70 (83) 96 Nasal Cannula 10.0 06/08/17 11:20 89 16 91 Mask 10.0 06/08/17 10:27 36.4 87 22 91 10.0 06/08/17 07:21 36.4 87 22 135/71 (92) 91 Oxymask 10.0 06/08/17 07:16 85 16 92 Mask 10.0 06/08/17 04:25 36.8 85 26 107/58 (74) 91 Oxymask 10.0 06/08/17 04:00 90 Oxymask 10.0 06/08/17 03:04 88 16 95 Mask 10.0 06/08/17 00:03 84 16 95 Mask 10.0 06/07/17 23:59 Oxymask 10.0 06/07/17 23:05 36.8 82 22 102/52 (69) 91 Oxymask 10.0 06/07/17 20:00 Oxymask 10.0 06/07/17 19:22 36.6 98 21 105/83 (90) 94 Oxymask 6.0 06/07/17 19:20 96 16 94 Mask 10.0 06/07/17 16:08 81 16 94 Mask 10.0 06/07/17 16:00 Oxymask 10.0 Laboratory Results: Last 24 Hours Test 06/07/17 18:54 06/08/17 01:00 06/08/17 07:05 06/08/17 10:55 Sodium Level 126 mmol/L 124 mmol/L Potassium Level 4.4 mmol/L 4.4 mmol/L Chloride Level 88 mmol/L 89 mmol/L Carbon Dioxide Level 32 mmol/L 30 mmol/L Anion Gap 6.0 mmol/L 5.0 mmol/L Blood Urea Nitrogen 18 mg/dl 17 mg/dl Creatinine 0.70 mg/dl 0.55 mg/dl Est Creatinine Clear Calc Drug Dose 68.9 ml/min 95.0 ml/min Estimated GFR () 107.6 116.5 Estimated GFR (Non- 92.9 100.5 BUN/Creatinine Ratio 26.2 30.2 Random Glucose 159 mg/dl 96 mg/dl Calcium Level 8.4 mg/dl 9.0 mg/dl Urine Osmolality 649 mOms/kg 616 mOms/kg Urine Random Sodium 11 mEq/L 6 mEq/L White Blood Count 14.94 K/uL Red Blood Count 3.53 M/uL Hemoglobin 10.2 g/dL Hematocrit 31.8 % Mean Corpuscular Volume 90.1 fL Mean Corpuscular Hemoglobin 28.9 pg Mean Corpuscular Hemoglobin Concent 32.1 g/dl Platelet Count 292 K/uL Mean Platelet Volume 9.7 fL Neutrophils (%) (Auto) 63.0 % Lymphocytes (%) (Auto) 23.5 % Monocytes (%) (Auto) 7.4 % Eosinophils (%) (Auto) 2.1 % Basophils (%) (Auto) 0.1 % Neutrophils # (Auto) 9.41 K/uL Lymphocytes # (Auto) 3.51 K/uL Monocytes # (Auto) 1.10 K/uL Eosinophils # (Auto) 0.32 K/uL Basophils # (Auto) 0.01 K/uL RDW Standard Deviation 54.0 fL RDW Coefficient of Variation 16.4 % Immature Granulocyte % (Auto) 3.9 % Immature Granulocyte # (Auto) 0.59 K/uL Magnesium Level 1.8 mg/dl Chemistry Specimen Hemolysis Test 06/08/17 11:45 Sodium Level 122 mmol/L Potassium Level 5.2 mmol/L Chloride Level 87 mmol/L Carbon Dioxide Level 30 mmol/L Anion Gap 5.0 mmol/L Blood Urea Nitrogen 17 mg/dl Creatinine 0.52 mg/dl Est Creatinine Clear Calc Drug Dose 100.4 ml/min Estimated GFR () 118.7 Estimated GFR (Non- 102.4 BUN/Creatinine Ratio 32.7 Random Glucose 91 mg/dl Calcium Level 9.0 mg/dl
--- NOTE | 2017-06-08 18:06 | Nephrology Progress Note ---
Nephrology Progress Note Date of Service: Jun 08, 2017. Subjective no change in chronic dyspnea when I saw her on rounds this am. no N; no uncontrolled pain; no edema Objective Date Time Temp Pulse Resp B/P (MAP) Pulse Ox O2 Delivery O2 Flow Rate FiO2 06/08/17 07:21 36.4 87 22 135/71 (92) 91 Oxymask 10.0 06/08/17 07:16 85 16 92 Mask 10.0 06/08/17 04:25 36.8 85 26 107/58 (74) 91 Oxymask 10.0 06/08/17 04:00 90 Oxymask 10.0 06/08/17 03:04 88 16 95 Mask 10.0 06/08/17 00:03 84 16 95 Mask 10.0 06/07/17 23:59 Oxymask 10.0 06/07/17 23:05 36.8 82 22 102/52 (69) 91 Oxymask 10.0 06/07/17 20:00 Oxymask 10.0 06/07/17 19:22 36.6 98 21 105/83 (90) 94 Oxymask 6.0 06/07/17 19:20 96 16 94 Mask 10.0 06/07/17 16:08 81 16 94 Mask 10.0 06/07/17 16:00 Oxymask 10.0 06/07/17 15:27 36.9 84 17 131/68 (89) 94 Oxymask 10.0 06/07/17 12:00 Nasal Cannula 6.0 Mask 06/07/17 11:27 36.7 77 20 126/73 (90) 93 Nasal Cannula 6.0 06/07/17 11:20 77 16 91 Mask 10.0 Physical Exam: General Appearance: no apparent distress, + thin, + pertinent finding ( chronically ill on high flow 02) Eyes: EOMI ENT: hearing grossly normal Neck: supple Respiratory/Chest: no respiratory distress, + decreased breath sounds, + fine lacy crackles Cardiovascular: no edema Abdomen: normal bowel sounds, non tender, soft, + pertinent finding (garcia w/ ample urine) Extremities: + pertinent finding (clubbing upper and lower extremities) Neurologic/Psych: alert, normal mood/affect, oriented x 3 Skin: no jaundice, warm/dry, no rash Current Inpatient Medications Medications (Trade) Dose Ordered Sig/Bishnu Route Start Time Stop Time Status Last Admin Dose Admin Enoxaparin Sodium (Lovenox Inj) 40 mg Q24H SC 05/23/17 21:00 06/22/17 20:59 06/07/17 20:27 40 MG Acetaminophen (Tylenol Tab) 650 mg Q4H PRN PO 05/23/17 17:45 06/22/17 17:44 06/08/17 08:15 650 MG Ondansetron HCl (Zofran Inj) 4 mg Q6H PRN IV 05/23/17 17:45 06/22/17 17:44 Polyethylene (Miralax Powder Packet) 17 gm DAILY PRN PO 05/23/17 17:45 06/22/17 17:44 Potassium Chloride (Klor-Con Tab) 20 meq BID PO 05/23/17 21:00 06/22/17 20:59 06/08/17 08:16 20 MEQ Aspirin (Ecotrin Tab) 81 mg DAILY PO 05/24/17 09:00 06/23/17 08:59 06/08/17 08:17 81 MG Calcium/Vitamin D (Caltrate Plus Tab) 1 tab BID PO 05/23/17 21:00 06/22/17 20:59 06/08/17 08:17 1 TAB Famotidine (Pepcid Tab) 20 mg QPM PO 05/23/17 21:00 06/22/17 20:59 06/07/17 20:23 20 MG Metoprolol Tartrate (Lopressor Tab) 25 mg BID PO 05/23/17 21:00 06/22/17 20:59 06/08/17 08:16 25 MG Nortriptyline HCl (Pamelor Cap) 25 mg QAM PO 05/24/17 09:00 06/23/17 08:59 06/08/17 08:17 25 MG Rosuvastatin Calcium (Crestor Tab) 20 mg QPM PO 05/23/17 21:00 06/22/17 20:59 06/07/17 20:24 20 MG Sodium Chloride ([place] Nasal [place]) 2 sprays BID NA 05/23/17 21:00 06/22/17 20:59 06/08/17 08:15 2 SPRAYS Sertraline HCl (Zoloft Tab) 100 mg HS PO 05/23/17 21:00 06/22/17 20:59 06/07/17 20:23 100 MG Miscellaneous Information (Order Awaiting Action) 1 ea QS N/A 05/24/17 00:00 06/23/17 00:00 Acetylcysteine (Mucomyst 20% Inh Soln) 3 ml BIDR INH 05/23/17 21:00 06/22/17 20:59 06/08/17 07:13 3 ML Non-Formulary Medication (Non-Formulary Patient'S Own Med) 1 ea HS PO 05/24/17 21:00 06/23/17 20:59 06/07/17 20:24 1 EA Prednisone (PredniSONE TAB) 40 mg DAILY PO 05/30/17 09:00 06/29/17 08:59 06/08/17 08:17 40 MG Ipratropium [place] (Atrovent 0.02% 0.5MG/2.5ML Neb) 0.5 mg Q4R INH 06/06/17 05:00 06/22/17 04:59 06/08/17 07:13 0.5 MG Levalbuterol (Xopenex 1.25MG/ 0.5ML Neb) 1.25 mg Q4R INH 06/06/17 05:00 06/22/17 04:59 06/08/17 07:13 1.25 MG Last 24 Hours Test 06/07/17 12:20 06/07/17 18:54 06/08/17 01:00 06/08/17 07:05 Sodium Level 123 mmol/L 126 mmol/L 124 mmol/L Potassium Level 4.4 mmol/L 4.4 mmol/L 4.4 mmol/L Chloride Level 85 mmol/L 88 mmol/L 89 mmol/L Carbon Dioxide Level 30 mmol/L 32 mmol/L 30 mmol/L Anion Gap 8.0 mmol/L 6.0 mmol/L 5.0 mmol/L Blood Urea Nitrogen 20 mg/dl 18 mg/dl 17 mg/dl Creatinine 0.65 mg/dl 0.70 mg/dl 0.55 mg/dl Est Creatinine Clear Calc Drug Dose 74.2 ml/min 68.9 ml/min 95.0 ml/min Estimated GFR () 110.3 107.6 116.5 Estimated GFR (Non- 95.2 92.9 100.5 BUN/Creatinine Ratio 31.4 26.2 30.2 Random Glucose 125 mg/dl 159 mg/dl 96 mg/dl Calcium Level 9.7 mg/dl 8.4 mg/dl 9.0 mg/dl Urine Osmolality 649 mOms/kg Urine Random Sodium 11 mEq/L White Blood Count 14.94 K/uL Red Blood Count 3.53 M/uL Hemoglobin 10.2 g/dL Hematocrit 31.8 % Mean Corpuscular Volume 90.1 fL Mean Corpuscular Hemoglobin 28.9 pg Mean Corpuscular Hemoglobin Concent 32.1 g/dl Platelet Count 292 K/uL Mean Platelet Volume 9.7 fL Neutrophils (%) (Auto) 63.0 % Lymphocytes (%) (Auto) 23.5 % Monocytes (%) (Auto) 7.4 % Eosinophils (%) (Auto) 2.1 % Basophils (%) (Auto) 0.1 % Neutrophils # (Auto) 9.41 K/uL Lymphocytes # (Auto) 3.51 K/uL Monocytes # (Auto) 1.10 K/uL Eosinophils # (Auto) 0.32 K/uL Basophils # (Auto) 0.01 K/uL RDW Standard Deviation 54.0 fL RDW Coefficient of Variation 16.4 % Immature Granulocyte % (Auto) 3.9 % Immature Granulocyte # (Auto) 0.59 K/uL Magnesium Level 1.8 mg/dl Chemistry Specimen Hemolysis Assessment & Plan 61 y/o F w/ severe and progressive pulmonary fibrosis w/ R HF noted on recheck of labs after 1 week hiatus to have sNa 121. one of the first questions clinically will be to clarify goals of care for this pt as this serum sodium will not be corrected without frequent lab testing every 4-6 hrs and w/ possibility for challenges / acute changes in her respiratory status as we try to correct her sodium levels likely w/ lasix and/or IV fluids. urine studies show marked volume depletion driving low sodium Hypotonic hyponatremia, suspect hypovolemic; suspect this is chronic (ie, of duration >48hrs) and not acutely symptomatic (ie, no seizures, marked change in ms) -recommend another small fluid infusion NS 250 mL which i will give slowly -we are continuing w/ lab draws and possible changes in resp status which I did d/w pt -bmp again at noon and 1800 today urgent ordered -goal sNa for tomorrow is 129 -lasix for now is prn only for breathing -more information needed including serum osms, urine studies; f/u labs from today>> urine study ordered yesterday not yet sent and amended as urgent to be resent -recommend retaining garcia for adequate I/O -agree w/ standing K as currently dosed Appreciate consult; will follow with you.
[2017-06-08 19:17] LABS: BUN/CREATININE RATIO 22.7 (10-20); CALCIUM 8.9 mg/dl (8.5-10.1); CREATININE 0.73 mg/dl (0.60-1.20); POTASSIUM 4.4 mmol/L (3.5-5.1)
[2017-06-08] MEDS: FAMOTIDINE 20 MG TAB PO SCH (20:18)
[2017-06-08] MEDS: ROSUVASTATIN CALCIUM 20 MG TAB PO SCH (20:18)
[2017-06-08] MEDS: SERTRALINE HCL 50 MG TAB PO SCH (20:19)
[2017-06-08] MEDS: [UNRECOGNIZED DRUG - OTHER] PO SCH (20:20)
[2017-06-08] MEDS: ENOXAPARIN 40 MG/0.4 ML SYR SC SCH (20:20)
[2017-06-09] VITALS (13 sets, daily range): BP systolic 93–102; BP diastolic 61–64; PULSE 76–90; TEMP 36.7–36.8; O2SAT 90–98
[2017-06-09] MEDS: LEVALBUTEROL 1.25MG/0.5ML NEB INH SCH ×6 (03:23→23:30)
[2017-06-09] MEDS: IPRATROPIUM BROMIDE NEB SOLN 0.02% 2.5 ML VIAL INH SCH ×6 (03:23→23:30)
[2017-06-09] MEDS: ACETYLCYSTEINE 20% INHAL SOLN ***DISPENSED BY RESP. INH SCH ×2 (07:49→19:48)
[2017-06-09 08:07] LABS: HEMATOCRIT 33.9 % (37-47); MEAN CELL VOLUME 91.9 fL (80-100); MEAN CORPUSCULAR HEMOGLOBIN 29.5 pg (25-34); MEAN CORPUSCULAR HGB CONC 32.2 g/dl (32-36); MEAN PLATELET VOLUME 9.4 fL (7.4-10.4); PLATELET COUNT 256 K/uL (130-400); RED BLOOD COUNT 3.69 M/uL (4.2-5.4); WHITE BLOOD COUNT 15.34 K/uL (4.8-10.8)
[2017-06-09 08:33] LABS: BUN/CREATININE RATIO 25.7 (10-20); CALCIUM 8.6 mg/dl (8.5-10.1); CREATININE 0.51 mg/dl (0.60-1.20); POTASSIUM 3.8 mmol/L (3.5-5.1)
[2017-06-09] MEDS: ASPIRIN 81 MG ECTAB PO SCH (08:55)
[2017-06-09] MEDS: NORTRIPTYLINE HCL 25 MG CAP PO SCH (08:55)
[2017-06-09] MEDS: METOPROLOL TARTRATE 25 MG TAB PO SCH ×2 (08:55→20:38)
[2017-06-09] MEDS: CALCIUM 600MG + VIT D 400 IU TAB PO SCH ×2 (08:56→20:40)
[2017-06-09] MEDS: SODIUM CHLORIDE 0.65% NA SOLN 45 ML (OCEAN) SCH ×2 (08:56→20:44)
[2017-06-09 09:00] LABS: BASO ABS # 0.41 K/uL (0-0.2); BASOPHIL % 2.7 %; EOSINOPHIL % 1.8 %; LYMPH ABS # 3.53 K/uL (1.2-3.4); META ABS # 0.14 K/uL (0-0); METAMYELOCYTE % 0.9 %; MYELOCYTE % 0.9 %; NEUTROPHILS % 67.1 %
--- NOTE | 2017-06-09 09:45 | Nephrology Progress Note ---
Nephrology Progress Note Date of Service: Jun 09, 2017. Subjective 61 y/o F w/ severe and progressive pulmonary fibrosis w/ R HF noted on recheck of labs after 1 week hiatus to have sNa 121. Plan of care for patient still unclear. Patient has no change in her SOB since yesterday. on 10L. was given slow IV fluids and sodium greatly improved. no N; no uncontrolled pain; no edema Objective Date Time Temp Pulse Resp B/P (MAP) Pulse Ox O2 Delivery O2 Flow Rate FiO2 06/09/17 09:13 36.8 06/09/17 07:59 84 22 93/61 (72) 93 Oxymask 10.0 06/09/17 07:49 81 16 98 Mask 10.0 06/09/17 03:23 84 16 95 Mask 10.0 06/09/17 00:00 Oxymask 10.0 06/08/17 23:24 82 16 95 Mask 10.0 06/08/17 23:16 36.4 91 18 127/73 (91) 98 Oxymask 10.0 06/08/17 20:30 89 16 94 Mask 10.0 06/08/17 16:20 92 Mask 10.0 06/08/17 15:35 89 16 92 Mask 10.0 06/08/17 15:28 36.8 82 20 109/70 (83) 96 Nasal Cannula 10.0 06/08/17 11:20 89 16 91 Mask 10.0 06/08/17 10:27 36.4 87 22 91 10.0 Physical Exam: General Appearance: no apparent distress, + thin, + high flow 02 Eyes: EOMI ENT: hearing grossly normal Neck: supple Respiratory/Chest: no respiratory distress, + decreased breath sounds, + fine lacy crackles Cardiovascular: no edema Abdomen: normal bowel sounds, non tender, soft +garcia cath Extremities: no edema/erythema. clubbing upper and lower extremities Neurologic/Psych: alert, normal mood/affect, oriented x 3 Skin: no jaundice, warm/dry, no rash Current Inpatient Medications Medications (Trade) Dose Ordered Sig/Bishnu Route Start Time Stop Time Status Last Admin Dose Admin Enoxaparin Sodium (Lovenox Inj) 40 mg Q24H SC 05/23/17 21:00 06/22/17 20:59 06/08/17 20:20 40 MG Acetaminophen (Tylenol Tab) 650 mg Q4H PRN PO 05/23/17 17:45 06/22/17 17:44 06/08/17 19:13 650 MG Ondansetron HCl (Zofran Inj) 4 mg Q6H PRN IV 05/23/17 17:45 06/22/17 17:44 Polyethylene (Miralax Powder Packet) 17 gm DAILY PRN PO 05/23/17 17:45 06/22/17 17:44 Potassium Chloride (Klor-Con Tab) 20 meq BID PO 05/23/17 21:00 06/22/17 20:59 Future Hold 06/08/17 08:16 20 MEQ Aspirin (Ecotrin Tab) 81 mg DAILY PO 05/24/17 09:00 06/23/17 08:59 06/09/17 08:55 81 MG Calcium/Vitamin D (Caltrate Plus Tab) 1 tab BID PO 05/23/17 21:00 06/22/17 20:59 06/09/17 08:56 1 TAB Famotidine (Pepcid Tab) 20 mg QPM PO 05/23/17 21:00 06/22/17 20:59 06/08/17 20:18 20 MG Metoprolol Tartrate (Lopressor Tab) 25 mg BID PO 05/23/17 21:00 06/22/17 20:59 06/09/17 08:55 25 MG Nortriptyline HCl (Pamelor Cap) 25 mg QAM PO 05/24/17 09:00 06/23/17 08:59 06/09/17 08:55 25 MG Rosuvastatin Calcium (Crestor Tab) 20 mg QPM PO 05/23/17 21:00 06/22/17 20:59 06/08/17 20:18 20 MG Sodium Chloride ([place] Nasal [place]) 2 sprays BID NA 05/23/17 21:00 06/22/17 20:59 06/09/17 08:56 2 SPRAYS Sertraline HCl (Zoloft Tab) 100 mg HS PO 05/23/17 21:00 06/22/17 20:59 06/08/17 20:19 100 MG Miscellaneous Information (Order Awaiting Action) 1 ea QS N/A 05/24/17 00:00 06/23/17 00:00 Acetylcysteine (Mucomyst 20% Inh Soln) 3 ml BIDR INH 05/23/17 21:00 06/22/17 20:59 06/09/17 07:49 3 ML Non-Formulary Medication (Non-Formulary Patient'S Own Med) 1 ea HS PO 05/24/17 21:00 06/23/17 20:59 06/08/17 20:20 1 EA Prednisone (PredniSONE TAB) 40 mg DAILY PO 05/30/17 09:00 06/29/17 08:59 06/09/17 08:55 40 MG Ipratropium [place] (Atrovent 0.02% 0.5MG/2.5ML Neb) 0.5 mg Q4R INH 06/06/17 05:00 06/22/17 04:59 06/09/17 07:49 0.5 MG Levalbuterol (Xopenex 1.25MG/ 0.5ML Neb) 1.25 mg Q4R INH 06/06/17 05:00 06/22/17 04:59 06/09/17 07:49 1.25 MG Last 24 Hours Test 06/08/17 10:55 06/08/17 11:45 06/08/17 18:12 06/09/17 07:53 Urine Osmolality 616 mOms/kg Urine Random Sodium 6 mEq/L Sodium Level 122 mmol/L 124 mmol/L 130 mmol/L Potassium Level 5.2 mmol/L 4.4 mmol/L 3.8 mmol/L Chloride Level 87 mmol/L 90 mmol/L 94 mmol/L Carbon Dioxide Level 30 mmol/L 28 mmol/L 31 mmol/L Anion Gap 5.0 mmol/L 6.0 mmol/L 5.0 mmol/L Blood Urea Nitrogen 17 mg/dl 17 mg/dl 13 mg/dl Creatinine 0.52 mg/dl 0.73 mg/dl 0.51 mg/dl Est Creatinine Clear Calc Drug Dose 100.4 ml/min 71.5 ml/min 94.6 ml/min Estimated GFR () 118.7 102.3 119.4 Estimated GFR (Non- 102.4 88.3 103.1 BUN/Creatinine Ratio 32.7 22.7 25.7 Random Glucose 91 mg/dl 193 mg/dl 129 mg/dl Calcium Level 9.0 mg/dl 8.9 mg/dl 8.6 mg/dl White Blood Count 15.34 K/uL Red Blood Count 3.69 M/uL Hemoglobin 10.9 g/dL Hematocrit 33.9 % Mean Corpuscular Volume 91.9 fL Mean Corpuscular Hemoglobin 29.5 pg Mean Corpuscular Hemoglobin Concent 32.2 g/dl Platelet Count 256 K/uL Mean Platelet Volume 9.4 fL RDW Standard Deviation 54.5 fL RDW Coefficient of Variation 16.4 % Neutrophils % (Manual) 67.1 % Lymphocytes % (Manual) 23.0 % Monocytes % (Manual) 2.7 % Eosinophils % (Manual) 1.8 % Basophils % (Manual) 2.7 % Metamyelocytes % 0.9 % Myelocytes % 0.9 % Promyelocytes % 0.9 % Neutrophils # (Manual) 10.29 K/uL Total Absolute Neutrophils 10.29 K/uL Lymphocytes # (Manual) 3.53 K/uL Total Absolute Lymphocytes 3.53 K/uL Monocytes # (Manual) 0.41 K/uL Eosinophils # (Manual) 0.28 K/uL Basophils # (Manual) 0.41 K/uL Metamyelocytes # 0.14 K/uL Myelocytes # 0.14 K/uL Promyelocytes # 0.14 K/uL Red Blood Cell Morphology Unremarkable Magnesium Level 2.0 mg/dl Other Studies: 06/08/17 06/09/17 06/10/17 08:00 08:00 08:00 Intake Total 790 ml 1290 ml Output Total 980 ml 1800 ml Balance -190 ml -510 ml Assessment & Plan Hypotonic hyponatremia-secondary to hypovolemia. Patient was given NS 250mL over several hours and patient's sodium significantly improved today at 130 today. will continue to follow but hold on any fluids or diuretics unless absolutely necessary for breathing. continue I&O's. Hypokalemia: potassium 3.8. continue currents supplementation. This patient was discussed with Dr. Mccray. Thank you for the opportunity to participate in this patient's care. Appreciate the Consult. 61 y/o F w/ end stage pulmonary fibrosis has hypovolemic hyponatremia and tenuous respiratory status. Further details per PA note which I have reviewed and w/ which I agree. Bryson Mccray MD PhD
[2017-06-09 09:49] LABS: COMPLETE YES
--- NOTE | 2017-06-09 16:19 | Progress Note ---
Internal Med Progress Note Date of Service: Jun 09, 2017. Provider Documentation: SUBJECTIVE: feeling better eating ok denies sob afebrile no pain OBJECTIVE: Vital Signs-as noted below Exam: General-alert and oriented. ENT-normal hearing Neck-no neck masses Lungs-cta b/l no wheezing bibasilar crackles Heart-s1 and s2 heard regular rhythm, no murmurs Abdomen-soft bowel sounds present non tender no distension Extremities no edema present no erythema Neuro-alert and oriented moves extremities Lab data as noted below. ASSESSMENT & PLAN: This is a 61yo female with a PMH of chronic respiratory failure 2/2 COPD, pulmonary fibrosis (on home O2), R sided HF, HTN who presents in acute respiratory failure after home health nurse found her to be hypoxic at 57%. Acute on chronic hypoxic respiratory failure: acute copd and ILD flare Health care pneumonia- possible gm negative or mrsa Baseline of 88% on chronic O2 therapy at home (5L NC) Found to be hypoxic at 57% prior to arrival in ED initially required NRB mask later was on high flow oxygen for couple of day Was on iv steroids, iv Levaquin and vancomycin - completed abx course Chest PT, Mucomyst 3 ML twice a day, flutter valve as per pulmonary tapering steroids- very slow taper as per pulmonary currently lasix on hold for hyponatremia Long discussion with patient about future plan of care by palliative care, pulmonary and myself. Today decided not to go for comfort care at this time but he is ok moving to medical floor continue same await placement Hyponatremia improved to 1430 today Lasix on hold' appreciate nephrology inputs to use Lasix on prn basis only. Hyperkalemia potassium 5.2 yesterday holding kcl supplements resolved.f/u labs in am Sepsis 2/2 PNA, UTI: on abx as above will f/u cx one bottle micrococcus -contaminant? repeat cx negative completed 10day abx course stable Acute on chronic R-sided Heart Failure, Preserved Ef: secondary underlying pulmonary disease Echo (04/10) with preserved EF: 65-70% but elevated R ventricular systolic pressure on iv Lasix 40mg bid f/u i/o's and daily weights continue same for now currently on Lasix 80mg po daily will f/u cxr- some what better holding Lasix for hyponatremia to use Lasix on prn basis will monitor HTN: Stable on Lasix, metoprolol will monitor Code staus level 5 DVT PROPHYLAXIS Lovenox DISPOSITION monitor in medial floor await placement social service for d/c planning Vital Signs: Date Time Temp Pulse Resp B/P (MAP) Pulse Ox O2 Delivery O2 Flow Rate FiO2 06/09/17 15:35 80 16 94 Mask 10.0 06/09/17 15:27 36.7 85 20 90 Mask 10.0 06/09/17 11:23 76 16 94 Mask 10.0 06/09/17 09:42 93 Oxymask 10.0 06/09/17 09:13 36.8 06/09/17 08:00 93 Oxymask 10.0 06/09/17 07:59 84 22 93/61 (72) 93 Oxymask 10.0 06/09/17 07:49 81 16 98 Mask 10.0 06/09/17 03:23 84 16 95 Mask 10.0 06/09/17 00:00 Oxymask 10.0 06/08/17 23:24 82 16 95 Mask 10.0 06/08/17 23:16 36.4 91 18 127/73 (91) 98 Oxymask 10.0 06/08/17 20:30 89 16 94 Mask 10.0 06/08/17 16:20 92 Mask 10.0 Lab Results: Results Past 24 Hours Test 06/08/17 18:12 06/09/17 07:53 06/09/17 10:25 Range/Units Sodium Level 124 130 136-145 mmol/L Potassium Level 4.4 3.8 3.5-5.1 mmol/L Chloride Level 90 94 98-107 mmol/L Carbon Dioxide Level 28 31 21-32 mmol/L Anion Gap 6.0 5.0 3-11 mmol/L Blood Urea Nitrogen 17 13 7-18 mg/dl Creatinine 0.73 0.51 0.60-1.20 mg/dl Est Creatinine Clear Calc Drug Dose 71.5 94.6 ml/min Estimated GFR () 102.3 119.4 Estimated GFR (Non- 88.3 103.1 BUN/Creatinine Ratio 22.7 25.7 10-20 Random Glucose 193 129 70-99 mg/dl Calcium Level 8.9 8.6 8.5-10.1 mg/dl White Blood Count 15.34 4.8-10.8 K/uL Red Blood Count 3.69 4.2-5.4 M/uL Hemoglobin 10.9 12.0-16.0 g/dL Hematocrit 33.9 37-47 % Mean Corpuscular Volume 91.9 80-100 fL Mean Corpuscular Hemoglobin 29.5 25-34 pg Mean Corpuscular Hemoglobin Concent 32.2 32-36 g/dl Platelet Count 256 130-400 K/uL Mean Platelet Volume 9.4 7.4-10.4 fL RDW Standard Deviation 54.5 36.4-46.3 fL RDW Coefficient of Variation 16.4 11.5-14.5 % Neutrophils % (Manual) 67.1 % Lymphocytes % (Manual) 23.0 % Monocytes % (Manual) 2.7 % Eosinophils % (Manual) 1.8 % Basophils % (Manual) 2.7 % Metamyelocytes % 0.9 % Myelocytes % 0.9 % Promyelocytes % 0.9 % Neutrophils # (Manual) 10.29 1.4-6.5 K/uL Total Absolute Neutrophils 10.29 1.4-6.5 K/uL Lymphocytes # (Manual) 3.53 1.2-3.4 K/uL Total Absolute Lymphocytes 3.53 1.2-3.4 K/uL Monocytes # (Manual) 0.41 0.11-0.59 K/uL Eosinophils # (Manual) 0.28 0-0.5 K/uL Basophils # (Manual) 0.41 0-0.2 K/uL Metamyelocytes # 0.14 0-0 K/uL Myelocytes # 0.14 0-0 K/uL Promyelocytes # 0.14 0-0 K/uL Red Blood Cell Morphology Unremarkable Magnesium Level 2.0 1.8-2.4 mg/dl Urine Osmolality 652 500-800 mOms/kg Urine Random Sodium 14 mEq/L
[2017-06-09] MEDS: ROSUVASTATIN CALCIUM 20 MG TAB PO SCH (20:39)
[2017-06-09] MEDS: SERTRALINE HCL 50 MG TAB PO SCH (20:40)
[2017-06-09] MEDS: FAMOTIDINE 20 MG TAB PO SCH (20:40)
[2017-06-09] MEDS: ENOXAPARIN 40 MG/0.4 ML SYR SC SCH (20:41)
[2017-06-09] MEDS: [UNRECOGNIZED DRUG - OTHER] PO SCH (23:43)
[2017-06-10] VITALS (11 sets, daily range): BP systolic 102–116; BP diastolic 65–72; PULSE 76–94; TEMP 36.4–36.6; O2SAT 91–97
[2017-06-10] MEDS: LEVALBUTEROL 1.25MG/0.5ML NEB INH SCH ×6 (04:05→23:05)
[2017-06-10] MEDS: IPRATROPIUM BROMIDE NEB SOLN 0.02% 2.5 ML VIAL INH SCH ×6 (04:05→23:05)
[2017-06-10 07:35] LABS: BUN/CREATININE RATIO 26.4 (10-20); CALCIUM 8.4 mg/dl (8.5-10.1); CREATININE 0.47 mg/dl (0.60-1.20); POTASSIUM 4.2 mmol/L (3.5-5.1)
[2017-06-10] MEDS: NORTRIPTYLINE HCL 25 MG CAP PO SCH (07:37)
[2017-06-10] MEDS: CALCIUM 600MG + VIT D 400 IU TAB PO SCH ×2 (07:37→21:39)
[2017-06-10] MEDS: METOPROLOL TARTRATE 25 MG TAB PO SCH ×2 (07:37→21:38)
[2017-06-10] MEDS: SODIUM CHLORIDE 0.65% NA SOLN 45 ML (OCEAN) SCH ×2 (07:37→21:42)
[2017-06-10] MEDS: ASPIRIN 81 MG ECTAB PO SCH (07:38)
[2017-06-10] MEDS: ACETYLCYSTEINE 20% INHAL SOLN ***DISPENSED BY RESP. INH SCH ×2 (07:39→19:17)
--- NOTE | 2017-06-10 16:28 | Progress Note ---
Internal Med Progress Note Date of Service: Jun 10, 2017. Provider Documentation: SUBJECTIVE: resting comfortably on oxygen mask afebrile no pain eating ok in room OBJECTIVE: Vital Signs-as noted below Exam: General-alert and oriented. ENT-normal hearing Neck-no neck masses Lungs-cta b/l no wheezing bibasilar crackles Heart-s1 and s2 heard regular rhythm, no murmurs Abdomen-soft bowel sounds present non tender no distension Extremities no edema present no erythema Neuro-alert and oriented moves extremities Lab data as noted below. ASSESSMENT & PLAN: This is a 61yo female with a PMH of chronic respiratory failure 2/2 COPD, pulmonary fibrosis (on home O2), R sided HF, HTN who presents in acute respiratory failure after home health nurse found her to be hypoxic at 57%. Acute on chronic hypoxic respiratory failure: acute copd and ILD flare Health care pneumonia- possible gm negative or mrsa Baseline of 88% on chronic O2 therapy at home (5L [place]) Found to be hypoxic at 57% prior to arrival in ED initially required NRB mask later was on high flow oxygen for couple of day Was on iv steroids, iv Levaquin and vancomycin - completed abx course Chest PT, Mucomyst 3 ML twice a day, flutter valve as per pulmonary tapering steroids- very slow taper as per pulmonary currently lasix on hold for hyponatremia Long discussion with patient about future plan of care by palliative care, pulmonary and myself. decided not to go for comfort care at this time but he is ok moving to medical floor continue same awaiting placement to use Lasix on prn basis Hyponatremia improved to 131 today Lasix on hold' appreciate nephrology inputs to use Lasix on prn basis only. Hyperkalemia potassium 5.2 yesterday holding kcl supplements resolved.f/u labs in am Sepsis 2/2 PNA, UTI: on abx as above will f/u cx one bottle micrococcus -contaminant? repeat cx negative completed 10day abx course stable Acute on chronic R-sided Heart Failure, Preserved Ef: secondary underlying pulmonary disease Echo (04/10) with preserved EF: 65-70% but elevated R ventricular systolic pressure on iv Lasix 40mg bid f/u i/o's and daily weights continue same for now currently on Lasix 80mg po daily will f/u cxr- some what better holding Lasix for hyponatremia to use Lasix on prn basis will monitor HTN: Stable on Lasix, metoprolol will monitor Code staus level 5 DVT PROPHYLAXIS Lovenox DISPOSITION monitor in medial floor await placement social service for d/c planning Vital Signs: Date Time Temp Pulse Resp B/P (MAP) Pulse Ox O2 Delivery O2 Flow Rate FiO2 06/10/17 16:00 96 Oxymask 10.0 06/10/17 14:54 36.4 87 20 102/68 (79) 96 Oxymask 10.0 06/10/17 14:54 88 16 92 Mask 10.0 06/10/17 11:34 76 16 92 Mask 10.0 06/10/17 08:00 Oxymask 10.0 06/10/17 07:43 89 15 91 Mask 10.0 06/10/17 07:32 36.5 78 20 110/70 (83) 94 Oxymask 10.0 06/10/17 04:06 80 16 97 Mask 10.0 06/10/17 00:22 36.6 89 20 116/72 (87) 94 Mask 10.0 06/10/17 00:13 95 Oxymask 10.0 06/09/17 23:30 82 16 95 Mask 10.0 06/09/17 20:46 90 102/64 (77) 06/09/17 19:51 80 16 95 Mask 10.0 Lab Results: Results Past 24 Hours Test 06/10/17 06:50 Range/Units Sodium Level 131 136-145 mmol/L Potassium Level 4.2 3.5-5.1 mmol/L Chloride Level 95 98-107 mmol/L Carbon Dioxide Level 30 21-32 mmol/L Anion Gap 6.0 3-11 mmol/L Blood Urea Nitrogen 12 7-18 mg/dl Creatinine 0.47 0.60-1.20 mg/dl Est Creatinine Clear Calc Drug Dose 102.7 ml/min Estimated GFR () 122.7 Estimated GFR (Non- 105.9 BUN/Creatinine Ratio 26.4 10-20 Random Glucose 95 70-99 mg/dl Calcium Level 8.4 8.5-10.1 mg/dl
[2017-06-10] MEDS: SERTRALINE HCL 50 MG TAB PO SCH (21:39)
[2017-06-10] MEDS: ROSUVASTATIN CALCIUM 20 MG TAB PO SCH (21:39)
[2017-06-10] MEDS: FAMOTIDINE 20 MG TAB PO SCH (21:40)
[2017-06-10] MEDS: ENOXAPARIN 40 MG/0.4 ML SYR SC SCH (21:40)
[2017-06-10] MEDS: [UNRECOGNIZED DRUG - OTHER] PO SCH (21:43)
[2017-06-11] VITALS (10 sets, daily range): BP systolic 98–116; BP diastolic 61–75; PULSE 78–104; TEMP 36.4–36.8; O2SAT 91–96
[2017-06-11] MEDS: LEVALBUTEROL 1.25MG/0.5ML NEB INH SCH ×6 (03:12→23:06)
[2017-06-11] MEDS: IPRATROPIUM BROMIDE NEB SOLN 0.02% 2.5 ML VIAL INH SCH ×6 (03:13→23:06)
[2017-06-11] MEDS: ACETYLCYSTEINE 20% INHAL SOLN ***DISPENSED BY RESP. INH SCH ×2 (07:02→20:02)
[2017-06-11 07:42] LABS: BUN/CREATININE RATIO 30.5 (10-20); CALCIUM 9.2 mg/dl (8.5-10.1); CREATININE 0.56 mg/dl (0.60-1.20); POTASSIUM 4.1 mmol/L (3.5-5.1)
[2017-06-11] MEDS: METOPROLOL TARTRATE 25 MG TAB PO SCH ×2 (07:51→21:28)
[2017-06-11] MEDS: ASPIRIN 81 MG ECTAB PO SCH (07:51)
[2017-06-11] MEDS: SODIUM CHLORIDE 0.65% NA SOLN 45 ML (OCEAN) SCH ×2 (07:51→21:26)
[2017-06-11] MEDS: NORTRIPTYLINE HCL 25 MG CAP PO SCH (07:52)
[2017-06-11] MEDS: CALCIUM 600MG + VIT D 400 IU TAB PO SCH ×2 (07:52→21:27)
--- NOTE | 2017-06-11 14:06 | Progress Note ---
Internal Med Progress Note Date of Service: Jun 11, 2017. Provider Documentation: SUBJECTIVE: resting comfortably on oxygen mask brother and sister in law room afebrile denies any pain OBJECTIVE: Vital Signs-as noted below Exam: General-alert and oriented. ENT-normal hearing Neck-no neck masses Lungs-cta b/l no wheezing bibasilar crackles Heart-s1 and s2 heard regular rhythm, no murmurs Abdomen-soft bowel sounds present non tender no distension Extremities no edema present no erythema Neuro-alert and oriented moves extremities Lab data as noted below. ASSESSMENT & PLAN: This is a 61yo female with a PMH of chronic respiratory failure 2/2 COPD, pulmonary fibrosis (on home O2), R sided HF, HTN who presents in acute respiratory failure after home health nurse found her to be hypoxic at 57%. Acute on chronic hypoxic respiratory failure: acute copd and ILD flare Health care pneumonia- possible gm negative or mrsa Baseline of 88% on chronic O2 therapy at home (5L [place]) Found to be hypoxic at 57% prior to arrival in ED initially required NRB mask later was on high flow oxygen for couple of day Was on iv steroids, iv Levaquin and vancomycin - completed abx course Chest PT, Mucomyst 3 ML twice a day, flutter valve as per pulmonary tapering steroids- very slow taper as per pulmonary currently lasix on hold for hyponatremia Long discussion with patient about future plan of care by palliative care, pulmonary and myself. decided not to go for comfort care at this time but he is ok moving to medical floor continue same awaiting placement continue current prednisone to use Lasix on prn basis Hyponatremia improved to 130 today Lasix on hold' appreciate nephrology inputs to use Lasix on prn basis only. Hyperkalemia potassium 5.2 yesterday holding kcl supplements resolved.f/u labs in am Sepsis 2/2 PNA, UTI: on abx as above will f/u cx one bottle micrococcus -contaminant? repeat cx negative completed 10day abx course stable Acute on chronic R-sided Heart Failure, Preserved Ef: secondary underlying pulmonary disease Echo (04/10) with preserved EF: 65-70% but elevated R ventricular systolic pressure on iv Lasix 40mg bid f/u i/o's and daily weights continue same for now currently on Lasix 80mg po daily will f/u cxr- some what better holding Lasix for hyponatremia to use Lasix on prn basis will monitor HTN: Stable on Lasix, metoprolol will monitor Code staus level 5 DVT PROPHYLAXIS Lovenox DISPOSITION monitor in medial floor awaiting placement social service for d/c planning Vital Signs: Date Time Temp Pulse Resp B/P (MAP) Pulse Ox O2 Delivery O2 Flow Rate FiO2 06/11/17 11:38 88 16 93 Mask 10.0 06/11/17 08:03 36.4 104 20 114/75 (88) 94 Oxymask 10.0 06/11/17 08:00 Oxymask 10.0 06/11/17 07:05 96 16 92 Mask 10.0 06/11/17 03:14 80 14 95 Mask 10.0 06/11/17 00:30 Oxymask 10.0 06/11/17 00:00 36.5 92 20 107/67 (80) 92 Mask 10.0 06/10/17 23:07 87 16 94 Mask 10.0 06/10/17 21:45 94 116/65 (82) 06/10/17 19:17 94 16 92 Mask 10.0 06/10/17 16:00 96 Oxymask 10.0 06/10/17 14:54 36.4 87 20 102/68 (79) 96 Oxymask 10.0 06/10/17 14:54 88 16 92 Mask 10.0 Lab Results: Results Past 24 Hours Test 06/11/17 07:00 Range/Units Sodium Level 130 136-145 mmol/L Potassium Level 4.1 3.5-5.1 mmol/L Chloride Level 94 98-107 mmol/L Carbon Dioxide Level 29 21-32 mmol/L Anion Gap 7.0 3-11 mmol/L Blood Urea Nitrogen 17 7-18 mg/dl Creatinine 0.56 0.60-1.20 mg/dl Est Creatinine Clear Calc Drug Dose 86.2 ml/min Estimated GFR () 115.8 Estimated GFR (Non- 99.9 BUN/Creatinine Ratio 30.5 10-20 Random Glucose 91 70-99 mg/dl Calcium Level 9.2 8.5-10.1 mg/dl Magnesium Level 2.0 1.8-2.4 mg/dl
[2017-06-11] MEDS ORDERED: SODIUM CHLORIDE 0.9% 1000ML 1,000 ML IV SCH (18:45)
[2017-06-11] MEDS: ENOXAPARIN 40 MG/0.4 ML SYR SC SCH (21:27)
[2017-06-11] MEDS: FAMOTIDINE 20 MG TAB PO SCH (21:27)
[2017-06-11] MEDS: ROSUVASTATIN CALCIUM 20 MG TAB PO SCH (21:27)
[2017-06-11] MEDS: SERTRALINE HCL 50 MG TAB PO SCH (21:28)
[2017-06-11] MEDS: [UNRECOGNIZED DRUG - OTHER] PO SCH (21:28)
[2017-06-12] VITALS (10 sets, daily range): BP systolic 99–118; BP diastolic 62–73; PULSE 76–99; TEMP 36.4–36.7; O2SAT 90–94
[2017-06-12] MEDS: LEVALBUTEROL 1.25MG/0.5ML NEB INH SCH ×6 (03:10→23:01)
[2017-06-12] MEDS: IPRATROPIUM BROMIDE NEB SOLN 0.02% 2.5 ML VIAL INH SCH ×6 (03:10→23:01)
[2017-06-12] MEDS: ACETYLCYSTEINE 20% INHAL SOLN ***DISPENSED BY RESP. INH SCH ×2 (07:04→19:21)
[2017-06-12] MEDS: SODIUM CHLORIDE 0.65% NA SOLN 45 ML (OCEAN) SCH ×2 (07:42→21:03)
[2017-06-12] MEDS: ASPIRIN 81 MG ECTAB PO SCH (07:43)
[2017-06-12] MEDS: METOPROLOL TARTRATE 25 MG TAB PO SCH ×2 (07:43→21:06)
[2017-06-12] MEDS: CALCIUM 600MG + VIT D 400 IU TAB PO SCH ×2 (07:43→21:05)
[2017-06-12] MEDS: NORTRIPTYLINE HCL 25 MG CAP PO SCH (07:43)
[2017-06-12 07:56] LABS: HEMATOCRIT 32.6 % (37-47); MEAN CELL VOLUME 92.1 fL (80-100); MEAN CORPUSCULAR HEMOGLOBIN 29.7 pg (25-34); MEAN CORPUSCULAR HGB CONC 32.2 g/dl (32-36); MEAN PLATELET VOLUME 9.3 fL (7.4-10.4); PLATELET COUNT 260 K/uL (130-400); RED BLOOD COUNT 3.54 M/uL (4.2-5.4); WHITE BLOOD COUNT 16.15 K/uL (4.8-10.8)
[2017-06-12 08:22] LABS: COMPLETE YES; EOSINOPHIL % 2.6 %; HYPERSEGMENTED POLYS 1+; LYMPH ABS # 4.39 K/uL (1.2-3.4); LYMPHOCYTE % 27.2 %; META ABS # 0.15 K/uL (0-0); METAMYELOCYTE % 0.9 %; MYELOCYTE % 2.6 %; NEUTROPHILS % 64.1 %
[2017-06-12 08:39] LABS: BUN/CREATININE RATIO 24.3 (10-20); CALCIUM 8.8 mg/dl (8.5-10.1); CREATININE 0.46 mg/dl (0.60-1.20); MAGNESIUM 2.1 mg/dl (1.8-2.4)
--- NOTE | 2017-06-12 10:21 | Progress Note ---
Internal Med Progress Note Date of Service: Jun 12, 2017. Provider Documentation: SUBJECTIVE: sitting on the chair comfortably afebrile denies sob or cough but requiring 10lts of oxygen eating fine moved bowels last evening says doing ok OBJECTIVE: Vital Signs-as noted below Exam: General-alert and oriented. ENT-normal hearing Neck-no neck masses Lungs-cta b/l no wheezing bibasilar crackles Heart-s1 and s2 heard regular rhythm, no murmurs Abdomen-soft bowel sounds present non tender no distension Extremities no edema present no erythema Neuro-alert and oriented moves extremities Lab data as noted below. ASSESSMENT & PLAN: This is a 61yo female with a PMH of chronic respiratory failure 2/2 COPD, pulmonary fibrosis (on home O2), R sided HF, HTN who presents in acute respiratory failure after home health nurse found her to be hypoxic at 57%.Was treated for health care pneumonia and finished course of abx,. Received Lasix for chf and on prednisone for ILD flare.Patient requiring high oxygen to keep her oxygen saturations. Was receiving high doses of Lasix as chest xray reading as chf. But labs showed hyponatremia and nephrology consulted. Currently Lasix is placed on prn basis. Continue prednisone 40mg daily-needs very slow taper. Many discussion with patient and by Pulmonary, palliative care and hospitalist service regarding further plan of care as patient not improving and not tolerating Lasix. inclined towards comfort care but later want to continue current tx. Patient is currently DNR. Plan for placement whenever bed available. Acute on chronic hypoxic respiratory failure: acute copd and ILD flare Health care pneumonia- possible gm negative or mrsa Baseline of 88% on chronic O2 therapy at home (5L [place]) Found to be hypoxic at 57% prior to arrival in ED initially required NRB mask later was on high flow oxygen for couple of day Was on iv steroids, iv Levaquin and vancomycin - completed abx course Chest PT, Mucomyst 3 ML twice a day, flutter valve as per pulmonary tapering steroids- very slow taper as per pulmonary currently lasix on hold for hyponatremia Long discussion with patient about future plan of care by palliative care, pulmonary and myself. decided not to go for comfort care at this time but he is ok moving to medical floor continue current prednisone 40mg daily for now to use Lasix on prn basis stable. continue pt/ot plan for placement Hyponatremia improved to 133 today Lasix on hold' appreciate nephrology inputs to use Lasix on prn basis only. Hyperkalemia potassium 5.2 holding kcl supplements resolved.f/u labs in am Sepsis 2/2 PNA, UTI: on abx as above will f/u cx one bottle micrococcus -contaminant? repeat cx negative completed 10day abx course stable Acute on chronic R-sided Heart Failure, Preserved Ef: secondary underlying pulmonary disease Echo (04/10) with preserved EF: 65-70% but elevated R ventricular systolic pressure initially was on iv Lasix 40mg bid f/u i/o's and daily weights then was on Lasix 80mg po daily will f/u cxr- some what better holding Lasix for hyponatremia to use Lasix on prn basis HTN: Stable on Lasix, metoprolol will monitor Code staus level 5 DVT PROPHYLAXIS Lovenox DISPOSITION monitor in medial floor pt/ot awaiting placement social service for d/c planning Vital Signs: Date Time Temp Pulse Resp B/P (MAP) Pulse Ox O2 Delivery O2 Flow Rate FiO2 06/12/17 16:00 Oxymask 10.0 06/12/17 15:37 36.4 94 20 117/73 (88) 90 Nasal Cannula 9.0 06/12/17 15:22 83 16 90 Mask 9.0 06/12/17 11:09 83 16 90 Mask 9.0 06/12/17 08:00 Oxymask 10.0 06/12/17 07:27 36.5 89 18 114/69 (84) 91 Nebulizer 06/12/17 07:05 88 18 91 Mask 10.0 06/12/17 03:11 76 18 94 Mask 10.0 06/12/17 00:55 Oxymask 10.0 06/12/17 00:00 36.7 99 18 99/62 (74) 92 Oxymask 10.0 06/11/17 23:06 78 16 96 Mask 10.0 06/11/17 21:30 98 116/63 (80) 06/11/17 20:02 88 16 94 Mask 10.0 Lab Results: Results Past 24 Hours Test 06/12/17 07:45 Range/Units White Blood Count 16.15 4.8-10.8 K/uL Red Blood Count 3.54 4.2-5.4 M/uL Hemoglobin 10.5 12.0-16.0 g/dL Hematocrit 32.6 37-47 % Mean Corpuscular Volume 92.1 80-100 fL Mean Corpuscular Hemoglobin 29.7 25-34 pg Mean Corpuscular Hemoglobin Concent 32.2 32-36 g/dl Platelet Count 260 130-400 K/uL Mean Platelet Volume 9.3 7.4-10.4 fL RDW Standard Deviation 56.5 36.4-46.3 fL RDW Coefficient of Variation 17.0 11.5-14.5 % Neutrophils % (Manual) 64.1 % Lymphocytes % (Manual) 27.2 % Monocytes % (Manual) 2.6 % Eosinophils % (Manual) 2.6 % Metamyelocytes % 0.9 % Myelocytes % 2.6 % Neutrophils # (Manual) 10.35 1.4-6.5 K/uL Total Absolute Neutrophils 10.35 1.4-6.5 K/uL Lymphocytes # (Manual) 4.39 1.2-3.4 K/uL Total Absolute Lymphocytes 4.39 1.2-3.4 K/uL Monocytes # (Manual) 0.42 0.11-0.59 K/uL Eosinophils # (Manual) 0.42 0-0.5 K/uL Metamyelocytes # 0.15 0-0 K/uL Myelocytes # 0.42 0-0 K/uL Hypersegmented Polys 1+ Sodium Level 133 136-145 mmol/L Potassium Level 4.0 3.5-5.1 mmol/L Chloride Level 98 98-107 mmol/L Carbon Dioxide Level 27 21-32 mmol/L Anion Gap 8.0 3-11 mmol/L Blood Urea Nitrogen 11 7-18 mg/dl Creatinine 0.46 0.60-1.20 mg/dl Est Creatinine Clear Calc Drug Dose 113.5 ml/min Estimated GFR () 123.6 Estimated GFR (Non- 106.6 BUN/Creatinine Ratio 24.3 10-20 Random Glucose 79 70-99 mg/dl Calcium Level 8.8 8.5-10.1 mg/dl Magnesium Level 2.1 1.8-2.4 mg/dl
[2017-06-12] MEDS: ENOXAPARIN 40 MG/0.4 ML SYR SC SCH (21:05)
[2017-06-12] MEDS: ROSUVASTATIN CALCIUM 20 MG TAB PO SCH (21:05)
[2017-06-12] MEDS: FAMOTIDINE 20 MG TAB PO SCH (21:05)
[2017-06-12] MEDS: SERTRALINE HCL 50 MG TAB PO SCH (21:05)
[2017-06-12] MEDS: [UNRECOGNIZED DRUG - OTHER] PO SCH (21:06)
[2017-06-13] VITALS (11 sets, daily range): BP systolic 105–119; BP diastolic 67–77; PULSE 80–95; TEMP 36.4–36.9; O2SAT 78–93
[2017-06-13] MEDS: LEVALBUTEROL 1.25MG/0.5ML NEB INH SCH ×6 (03:07→23:22)
[2017-06-13] MEDS: IPRATROPIUM BROMIDE NEB SOLN 0.02% 2.5 ML VIAL INH SCH ×6 (03:07→23:22)
[2017-06-13 06:49] LABS: HEMATOCRIT 29.5 % (37-47); MEAN CELL VOLUME 91.6 fL (80-100); MEAN CORPUSCULAR HEMOGLOBIN 29.8 pg (25-34); MEAN CORPUSCULAR HGB CONC 32.5 g/dl (32-36); MEAN PLATELET VOLUME 9.7 fL (7.4-10.4); PLATELET COUNT 237 K/uL (130-400); RED BLOOD COUNT 3.22 M/uL (4.2-5.4); WHITE BLOOD COUNT 13.19 K/uL (4.8-10.8)
[2017-06-13] MEDS: ACETYLCYSTEINE 20% INHAL SOLN ***DISPENSED BY RESP. INH SCH ×2 (07:15→20:20)
[2017-06-13 07:23] LABS: BUN/CREATININE RATIO 23.2 (10-20); CALCIUM 8.5 mg/dl (8.5-10.1); CREATININE 0.44 mg/dl (0.60-1.20); MAGNESIUM 2.2 mg/dl (1.8-2.4); POTASSIUM 4.2 mmol/L (3.5-5.1)
[2017-06-13 07:36] LABS: ANISOCYTOSIS PRESENT; BASO % 0.2 %; BASO ABS # 0.02 K/uL (0-0.2); COMPLETE YES; HYPERSEGMENTED POLYS 1+; IG% 5.2 %; LYMPH % 27.7 %; LYMPH ABS # 3.65 K/uL (1.2-3.4); MONO % 6.4 %; NEUT % 57.5 %; SPHEROCYTE 1+
[2017-06-13] MEDS: CALCIUM 600MG + VIT D 400 IU TAB PO SCH ×2 (07:56→20:57)
[2017-06-13] MEDS: NORTRIPTYLINE HCL 25 MG CAP PO SCH (07:56)
[2017-06-13] MEDS: METOPROLOL TARTRATE 25 MG TAB PO SCH ×2 (07:56→20:57)
[2017-06-13] MEDS: SODIUM CHLORIDE 0.65% NA SOLN 45 ML (OCEAN) SCH ×2 (07:56→20:58)
[2017-06-13] MEDS: ASPIRIN 81 MG ECTAB PO SCH (07:56)
--- NOTE | 2017-06-13 10:59 | Progress Note ---
Medicine Progress Note Date & Time of Visit: Jun 13, 2017 at 10:54. Subjective patient seen resting in bedside chair, comfortable states she feels fine overall denies dyspnea no other symptoms Objective Last 8 Hrs Date Time Temp Pulse Resp B/P (MAP) Pulse Ox O2 Delivery O2 Flow Rate FiO2 06/13/17 08:41 36.8 80 19 105/67 (80) 91 Oxymask 10.0 06/13/17 08:00 Oxymask 10.0 06/13/17 07:15 85 16 93 Mask 10.0 06/13/17 03:08 81 16 93 Mask 10.0 Physical Exam: General- oriented x 3, not in distress, speaks in sentences with no effort Eyes- EOMI, anicteric ENT- oropharynx clear Neck- supple, no JVD, no adenopathy Lungs- fine crackles at the bases, no wheezing Heart- regular rhythm; no murmur, normal rate Abdomen- normal bowel sounds, soft, nontender Extremities- no pretibial edema, no calf tenderness; peripheral pulses intact Neuro- alert, oriented x 3; no gross deficits Skin- warm & dry Laboratory Results: Last 24 Hours Test 06/13/17 06:10 White Blood Count 13.19 K/uL Red Blood Count 3.22 M/uL Hemoglobin 9.6 g/dL Hematocrit 29.5 % Mean Corpuscular Volume 91.6 fL Mean Corpuscular Hemoglobin 29.8 pg Mean Corpuscular Hemoglobin Concent 32.5 g/dl Platelet Count 237 K/uL Mean Platelet Volume 9.7 fL Neutrophils (%) (Auto) 57.5 % Lymphocytes (%) (Auto) 27.7 % Monocytes (%) (Auto) 6.4 % Eosinophils (%) (Auto) 3.0 % Basophils (%) (Auto) 0.2 % Neutrophils # (Auto) 7.58 K/uL Lymphocytes # (Auto) 3.65 K/uL Monocytes # (Auto) 0.85 K/uL Eosinophils # (Auto) 0.40 K/uL Basophils # (Auto) 0.02 K/uL RDW Standard Deviation 57.5 fL RDW Coefficient of Variation 17.3 % Immature Granulocyte % (Auto) 5.2 % Immature Granulocyte # (Auto) 0.69 K/uL Nucleated RBC Absolute Count (auto) 0.06 K/uL Nucleated Red Blood Cells % 0.4 % Hypersegmented Polys 1+ Anisocytosis PRESENT Spherocytes 1+ Sodium Level 134 mmol/L Potassium Level 4.2 mmol/L Chloride Level 98 mmol/L Carbon Dioxide Level 31 mmol/L Anion Gap 5.0 mmol/L Blood Urea Nitrogen 10 mg/dl Creatinine 0.44 mg/dl Est Creatinine Clear Calc Drug Dose 120.4 ml/min Estimated GFR () 125.4 Estimated GFR (Non- 108.2 BUN/Creatinine Ratio 23.2 Random Glucose 79 mg/dl Calcium Level 8.5 mg/dl Magnesium Level 2.2 mg/dl Assessment & Plan This is a 61yo female with a PMH of chronic respiratory failure 2/2 COPD, pulmonary fibrosis (on home O2), R sided HF, HTN who presents in acute respiratory failure after home health nurse found her to be hypoxic at 57%.Was treated for health care pneumonia and finished course of abx,. Received Lasix for chf and on prednisone for ILD flare.P Acute on chronic hypoxic respiratory failure: acute copd and ILD flare Health care pneumonia- possible gm negative or mrsa Baseline of 88% on chronic O2 therapy at home (5L [place]) Found to be hypoxic at 57% prior to arrival in ED initially required NRB mask later was on high flow oxygen for couple of day Was on iv steroids, iv Levaquin and vancomycin - completed abx course Chest PT, Mucomyst 3 ML twice a day, flutter valve as per pulmonary tapering steroids- very slow taper as per pulmonary currently lasix on hold for hyponatremia -- on Mucomyst, Nebs q4h Prednisone 40mg daily, slow taper -- awaiting placement to SNF Hyponatremia further improved to 134 Lasix on hold appreciate nephrology inputs to use Lasix on prn basis only. Hyperkalemia potassium 5.2 K stable at 4 Sepsis 2/2 PNA, UTI: one bottle micrococcus -contaminant? repeat cx negative completed 10day abx course stable Acute on chronic R-sided Heart Failure, Preserved Ef: secondary underlying pulmonary disease Echo (04/10) with preserved EF: 65-70% but elevated R ventricular systolic pressure initially was on iv Lasix 40mg bid then was on Lasix 80mg po daily f/u cxr- some what better holding Lasix for hyponatremia to use Lasix on prn basis HTN: Stable on Lasix, metoprolol will monitor Code staus level 5 DVT PROPHYLAXIS Lovenox DISPOSITION monitor in medial floor pt/ot awaiting placement social service for d/c planning Current Inpatient Medications: Current Inpatient Medications Medications (Trade) Dose Ordered Sig/Bishnu Route Start Time Stop Time Status Last Admin Dose Admin Enoxaparin Sodium (Lovenox Inj) 40 mg Q24H SC 05/23/17 21:00 06/22/17 20:59 06/12/17 21:05 40 MG Acetaminophen (Tylenol Tab) 650 mg Q4H PRN PO 05/23/17 17:45 06/22/17 17:44 06/08/17 19:13 650 MG Ondansetron HCl (Zofran Inj) 4 mg Q6H PRN IV 05/23/17 17:45 06/22/17 17:44 Polyethylene (Miralax Powder Packet) 17 gm DAILY PRN PO 05/23/17 17:45 06/22/17 17:44 Potassium Chloride (Klor-Con Tab) 20 meq BID PO 05/23/17 21:00 06/22/17 20:59 Future Hold 06/08/17 08:16 20 MEQ Aspirin (Ecotrin Tab) 81 mg DAILY PO 05/24/17 09:00 06/23/17 08:59 06/13/17 07:56 81 MG Calcium/Vitamin D (Caltrate Plus Tab) 1 tab BID PO 05/23/17 21:00 06/22/17 20:59 06/13/17 07:56 1 TAB Famotidine (Pepcid Tab) 20 mg QPM PO 05/23/17 21:00 06/22/17 20:59 06/12/17 21:05 20 MG Metoprolol Tartrate (Lopressor Tab) 25 mg BID PO 05/23/17 21:00 06/22/17 20:59 06/13/17 07:56 25 MG Nortriptyline HCl (Pamelor Cap) 25 mg QAM PO 05/24/17 09:00 06/23/17 08:59 06/13/17 07:56 25 MG Rosuvastatin Calcium (Crestor Tab) 20 mg QPM PO 05/23/17 21:00 06/22/17 20:59 06/12/17 21:05 20 MG Sodium Chloride ([place] Nasal [place]) 2 sprays BID NA 05/23/17 21:00 06/22/17 20:59 06/13/17 07:56 2 SPRAYS Sertraline HCl (Zoloft Tab) 100 mg HS PO 05/23/17 21:00 06/22/17 20:59 06/12/17 21:05 100 MG Miscellaneous Information (Order Awaiting Action) 1 ea QS N/A 05/24/17 00:00 06/23/17 00:00 Acetylcysteine (Mucomyst 20% Inh Soln) 3 ml BIDR INH 05/23/17 21:00 06/22/17 20:59 06/13/17 07:15 3 ML Non-Formulary Medication (Non-Formulary Patient'S Own Med) 1 ea HS PO 05/24/17 21:00 06/23/17 20:59 06/12/17 21:06 1 EA Prednisone (PredniSONE TAB) 40 mg DAILY PO 05/30/17 09:00 06/29/17 08:59 06/13/17 07:56 40 MG Ipratropium [place] (Atrovent 0.02% 0.5MG/2.5ML Neb) 0.5 mg Q4R INH 06/06/17 05:00 06/22/17 04:59 06/13/17 07:15 0.5 MG Levalbuterol (Xopenex 1.25MG/ 0.5ML Neb) 1.25 mg Q4R INH 06/06/17 05:00 06/22/17 04:59 06/13/17 07:15 1.25 MG
[2017-06-13] MEDS: ROSUVASTATIN CALCIUM 20 MG TAB PO SCH (20:57)
[2017-06-13] MEDS: FAMOTIDINE 20 MG TAB PO SCH (20:57)
[2017-06-13] MEDS: SERTRALINE HCL 50 MG TAB PO SCH (20:57)
[2017-06-13] MEDS: ENOXAPARIN 40 MG/0.4 ML SYR SC SCH (20:58)
[2017-06-13] MEDS: [UNRECOGNIZED DRUG - OTHER] PO SCH (20:58)
[2017-06-14] VITALS (11 sets, daily range): BP systolic 93–126; BP diastolic 56–81; PULSE 77–100; TEMP 36.3–36.8; O2SAT 88–94
[2017-06-14] MEDS: LEVALBUTEROL 1.25MG/0.5ML NEB INH SCH ×6 (03:22→23:12)
[2017-06-14] MEDS: IPRATROPIUM BROMIDE NEB SOLN 0.02% 2.5 ML VIAL INH SCH ×6 (03:22→23:12)
[2017-06-14 07:18] LABS: BUN/CREATININE RATIO 28.7 (10-20); CALCIUM 8.3 mg/dl (8.5-10.1); CREATININE 0.51 mg/dl (0.60-1.20); MAGNESIUM 2.2 mg/dl (1.8-2.4); POTASSIUM 4.2 mmol/L (3.5-5.1)
[2017-06-14] MEDS: ACETYLCYSTEINE 20% INHAL SOLN ***DISPENSED BY RESP. INH SCH ×2 (07:40→19:32)
[2017-06-14] MEDS: METOPROLOL TARTRATE 25 MG TAB PO SCH ×2 (09:11→20:11)
[2017-06-14] MEDS: ASPIRIN 81 MG ECTAB PO SCH (09:11)
[2017-06-14] MEDS: CALCIUM 600MG + VIT D 400 IU TAB PO SCH ×2 (09:11→20:10)
[2017-06-14] MEDS: NORTRIPTYLINE HCL 25 MG CAP PO SCH (09:12)
[2017-06-14] MEDS: SODIUM CHLORIDE 0.65% NA SOLN 45 ML (OCEAN) SCH ×2 (09:14→20:09)
--- NOTE | 2017-06-14 18:41 | Progress Note ---
Medicine Progress Note Date & Time of Visit: Jun 14, 2017 at 18:40. Subjective seen with Rickey at bedside states she is having more cough today denies shortness of breath, remains on oxymask at 10L Rickey notes debris on [place] Cath, patient denies chills, abdominal pain, nausea denies other symptoms Objective Last 8 Hrs Date Time Temp Pulse Resp B/P (MAP) Pulse Ox O2 Delivery O2 Flow Rate FiO2 06/14/17 16:00 92 Oxymask 10.0 55 06/14/17 14:56 90 16 92 Mask 10.0 06/14/17 14:55 36.3 97 18 121/76 (91) 90 Oxymask 10.0 06/14/17 11:19 78 16 94 Mask 10.0 Physical Exam: General- oriented x 3, not in distress, speaks in sentences with no effort Eyes- anicteric Neck- supple, mild JVD Lungs- fine crackles at the bases, no wheezing Heart- regular rhythm; no murmur, normal rate Abdomen- normal bowel sounds, soft, nontender Extremities- no pretibial edema, no calf tenderness; peripheral pulses intact Neuro- alert, oriented x 3; no gross deficits Skin- warm & dry Laboratory Results: Last 24 Hours Test 06/14/17 06:05 Sodium Level 134 mmol/L Potassium Level 4.2 mmol/L Chloride Level 98 mmol/L Carbon Dioxide Level 32 mmol/L Anion Gap 4.0 mmol/L Blood Urea Nitrogen 15 mg/dl Creatinine 0.51 mg/dl Est Creatinine Clear Calc Drug Dose 103.3 ml/min Estimated GFR () 119.4 Estimated GFR (Non- 103.1 BUN/Creatinine Ratio 28.7 Random Glucose 94 mg/dl Calcium Level 8.3 mg/dl Magnesium Level 2.2 mg/dl Assessment & Plan This is a 61yo female with a PMH of chronic respiratory failure 2/2 COPD, pulmonary fibrosis (on home O2), R sided HF, HTN who presents in acute respiratory failure after home health nurse found her to be hypoxic at 57%.Was treated for health care pneumonia and finished course of abx,. Received Lasix for chf and on prednisone for ILD flare.P Acute on chronic hypoxic respiratory failure: acute copd and ILD flare Health care pneumonia- possible gm negative or mrsa Baseline of 88% on chronic O2 therapy at home (5L [place]) Found to be hypoxic at 57% prior to arrival in ED initially required NRB mask later was on high flow oxygen for couple of day Was on iv steroids, iv Levaquin and vancomycin - completed abx course Chest PT, Mucomyst 3 ML twice a day, flutter valve as per pulmonary tapering steroids- very slow taper as per pulmonary currently lasix on hold for hyponatremia -- on Mucomyst, Nebs q4h Prednisone 40mg daily, slow taper -- (+) increased cough today, with mild tachypnea Lasix 20mg IV one dose today -- awaiting placement to SNF Possible UTI -- check UA and Urine culture Hyponatremia further improved to 134 appreciate nephrology inputs to use Lasix on prn basis only. Hyperkalemia potassium 5.2 K stable at 4 Sepsis 2/2 PNA, UTI: one bottle micrococcus -contaminant? repeat cx negative completed 10day abx course -- repeat UA, urine culture ordered Acute on chronic R-sided Heart Failure, Preserved Ef: secondary underlying pulmonary disease Echo (04/10) with preserved EF: 65-70% but elevated R ventricular systolic pressure initially was on iv Lasix 40mg bid then was on Lasix 80mg po daily f/u cxr- some what better -- (+) cough, mild tachypnea Lasix one dose today HTN: Stable on metoprolol David jsoeph level 5 DVT PROPHYLAXIS Lovenox DISPOSITION monitor in medial floor pt/ot awaiting placement social service for d/c planning Current Inpatient Medications: Current Inpatient Medications Medications (Trade) Dose Ordered Sig/Bishnu Route Start Time Stop Time Status Last Admin Dose Admin Enoxaparin Sodium (Lovenox Inj) 40 mg Q24H SC 05/23/17 21:00 06/22/17 20:59 06/13/17 20:58 40 MG Acetaminophen (Tylenol Tab) 650 mg Q4H PRN PO 05/23/17 17:45 06/22/17 17:44 06/08/17 19:13 650 MG Ondansetron HCl (Zofran Inj) 4 mg Q6H PRN IV 05/23/17 17:45 06/22/17 17:44 Polyethylene (Miralax Powder Packet) 17 gm DAILY PRN PO 05/23/17 17:45 06/22/17 17:44 Potassium Chloride (Klor-Con Tab) 20 meq BID PO 05/23/17 21:00 06/22/17 20:59 Future Hold 06/08/17 08:16 20 MEQ Aspirin (Ecotrin Tab) 81 mg DAILY PO 05/24/17 09:00 06/23/17 08:59 06/14/17 09:11 81 MG Calcium/Vitamin D (Caltrate Plus Tab) 1 tab BID PO 05/23/17 21:00 06/22/17 20:59 06/14/17 09:11 1 TAB Famotidine (Pepcid Tab) 20 mg QPM PO 05/23/17 21:00 06/22/17 20:59 06/13/17 20:57 20 MG Metoprolol Tartrate (Lopressor Tab) 25 mg BID PO 05/23/17 21:00 06/22/17 20:59 06/14/17 09:11 25 MG Nortriptyline HCl (Pamelor Cap) 25 mg QAM PO 05/24/17 09:00 06/23/17 08:59 06/14/17 09:12 25 MG Rosuvastatin Calcium (Crestor Tab) 20 mg QPM PO 05/23/17 21:00 06/22/17 20:59 06/13/17 20:57 20 MG Sodium Chloride ([place] Nasal [place]) 2 sprays BID NA 05/23/17 21:00 06/22/17 20:59 06/14/17 09:14 2 SPRAYS Sertraline HCl (Zoloft Tab) 100 mg HS PO 05/23/17 21:00 06/22/17 20:59 06/13/17 20:57 100 MG Miscellaneous Information (Order Awaiting Action) 1 ea QS N/A 05/24/17 00:00 06/23/17 00:00 Acetylcysteine (Mucomyst 20% Inh Soln) 3 ml BIDR INH 05/23/17 21:00 06/22/17 20:59 06/13/17 20:20 3 ML Non-Formulary Medication (Non-Formulary Patient'S Own Med) 1 ea HS PO 05/24/17 21:00 06/23/17 20:59 06/13/17 20:58 1 EA Prednisone (PredniSONE TAB) 40 mg DAILY PO 05/30/17 09:00 06/29/17 08:59 06/14/17 09:13 40 MG Ipratropium [place] (Atrovent 0.02% 0.5MG/2.5ML Neb) 0.5 mg Q4R INH 06/06/17 05:00 06/22/17 04:59 06/14/17 14:45 0.5 MG Levalbuterol (Xopenex 1.25MG/ 0.5ML Neb) 1.25 mg Q4R INH 06/06/17 05:00 06/22/17 04:59 06/14/17 14:45 1.25 MG
[2017-06-14] MEDS ORDERED: FUROSEMIDE INJ 20 MG in SYRINGE 0 ML IV ONE (19:45)
[2017-06-14 20:07] LABS: URINE APPEARANCE TURBID (CLEAR); URINE BILIRUBIN NEG (NEG); URINE COLOR YELLOW; URINE EPITHELIAL CELL AUTO 20-30 /lpf (0-5); URINE NITRITE POS (NEG); URINE PH >= 9.0 (4.5-7.5); URINE SPECIFIC GRAVITY 1.017 (1.000-1.030); UROBILINOGEN NEG (NEG)
[2017-06-14] MEDS: SERTRALINE HCL 50 MG TAB PO SCH (20:10)
[2017-06-14] MEDS: ENOXAPARIN 40 MG/0.4 ML SYR SC SCH (20:10)
[2017-06-14] MEDS: ROSUVASTATIN CALCIUM 20 MG TAB PO SCH (20:11)
[2017-06-14] MEDS: FAMOTIDINE 20 MG TAB PO SCH (20:11)
[2017-06-14] MEDS: [UNRECOGNIZED DRUG - OTHER] PO SCH (20:12)
[2017-06-14 20:22] LABS: MANUAL MICROSCOPIC REQUIRED? NO; REVIEW REQ? YES; SULFASALICYLIC ACID POS (NEG)
[2017-06-14] MEDS ORDERED: PIPERACILL/TAZOBAC CONSULT ACTIVE PRN (21:30)
[2017-06-14] MEDS ORDERED: PIPERACILL/TAZOBAC IV 3.375 GM in DEXTROSE 5% 100ML IV ONE (21:30)
[2017-06-15] VITALS (9 sets, daily range): BP systolic 116–121; BP diastolic 76–83; PULSE 81–100; TEMP 36.3–36.6; O2SAT 89–92
[2017-06-15] MEDS ORDERED: PIPERACILL/TAZOBAC IV 3.375 GM in DEXTROSE 5% 100ML 100 ML IV SCH ×2
[2017-06-15] MEDS: PIPERACILL/TAZOBAC IV 3.375 GM in DEXTROSE 5% 100ML IV SCH ×3 (01:42→18:09)
[2017-06-15] MEDS: IPRATROPIUM BROMIDE NEB SOLN 0.02% 2.5 ML VIAL INH SCH ×6 (03:55→23:07)
[2017-06-15] MEDS: LEVALBUTEROL 1.25MG/0.5ML NEB INH SCH ×6 (03:55→23:08)
[2017-06-15] MEDS: ACETYLCYSTEINE 20% INHAL SOLN ***DISPENSED BY RESP. INH SCH (07:07)
[2017-06-15 07:57] LABS: BUN/CREATININE RATIO 29.3 (10-20); CALCIUM 8.4 mg/dl (8.5-10.1); CREATININE 0.43 mg/dl (0.60-1.20); POTASSIUM 3.7 mmol/L (3.5-5.1)
[2017-06-15] MEDS: ASPIRIN 81 MG ECTAB PO SCH (08:11)
[2017-06-15] MEDS: NORTRIPTYLINE HCL 25 MG CAP PO SCH (08:12)
[2017-06-15] MEDS: CALCIUM 600MG + VIT D 400 IU TAB PO SCH ×2 (08:12→20:32)
[2017-06-15] MEDS: METOPROLOL TARTRATE 25 MG TAB PO SCH ×2 (08:12→20:33)
[2017-06-15] MEDS: SODIUM CHLORIDE 0.65% NA SOLN 45 ML (OCEAN) SCH ×2 (08:13→20:31)
--- NOTE | 2017-06-15 11:03 | Progress Note ---
Medicine Progress Note Date & Time of Visit: Jun 15, 2017 at 10:56. Subjective patient seen resting in bed, not in distress reports abdomen being "queasy", no nausea but had loose BMs last night denies shortness of breath, cough has improved no other symptoms Objective Last 8 Hrs Date Time Temp Pulse Resp B/P (MAP) Pulse Ox O2 Delivery O2 Flow Rate FiO2 06/15/17 07:51 92 Oxymask 10.0 55 06/15/17 07:17 36.3 81 18 116/76 (89) 92 Oxymask 10.0 06/15/17 07:09 87 16 89 Mask 10.0 06/15/17 03:55 82 16 92 Mask 10.0 Physical Exam: General- oriented x 3, not in distress, speaks in sentences with no effort Eyes- anicteric Neck- mild JVD Lungs- fine crackles at the bases- not worsening, no wheezing Heart- regular rhythm; no murmur, normal rate Abdomen- non distended,hyperactive BS, soft, nontender Extremities- no pretibial edema, no calf tenderness Neuro- alert, oriented x 3; no gross deficits Skin- warm & dry Laboratory Results: Last 24 Hours Test 06/15/17 06:40 Sodium Level 134 mmol/L Potassium Level 3.7 mmol/L Chloride Level 96 mmol/L Carbon Dioxide Level 31 mmol/L Anion Gap 7.0 mmol/L Blood Urea Nitrogen 13 mg/dl Creatinine 0.43 mg/dl Est Creatinine Clear Calc Drug Dose 122.6 ml/min Estimated GFR () 126.3 Estimated GFR (Non- 109.0 BUN/Creatinine Ratio 29.3 Random Glucose 92 mg/dl Calcium Level 8.4 mg/dl Magnesium Level 2.0 mg/dl Assessment & Plan This is a 61yo female with a PMH of chronic respiratory failure 2/2 COPD, pulmonary fibrosis (on home O2), R sided HF, HTN who presents in acute respiratory failure after home health nurse found her to be hypoxic at 57%.Was treated for health care pneumonia and finished course of abx,. Received Lasix for chf and on prednisone for ILD flare.P Acute on chronic hypoxic respiratory failure: acute copd and ILD flare Health care pneumonia- possible gm negative or mrsa Baseline of 88% on chronic O2 therapy at home (5L [place]) Found to be hypoxic at 57% prior to arrival in ED initially required NRB mask later was on high flow oxygen for couple of day Was on iv steroids, iv Levaquin and vancomycin - completed abx course Chest PT, Mucomyst 3 ML twice a day, flutter valve as per pulmonary tapering steroids- very slow taper as per pulmonary currently lasix on hold for hyponatremia -- on Mucomyst, Nebs q4h Prednisone 40mg daily, slow taper -- 06/14 (+) increased cough, with mild tachypnea Lasix 20mg IV one dose improved today -- awaiting placement to SNF Gram Negative Bacilli UTI -- ff up final urine cultures -- on Zosyn Day 2 Diarrhea -- r/o C diff -- Protonix IV Hyponatremia stable at 134 appreciate nephrology inputs to use Lasix on prn basis only. Hyperkalemia potassium 5.2 K stable at 4 Sepsis 2/2 PNA, UTI: one bottle micrococcus -contaminant? repeat cx negative completed 10day abx course Acute on chronic R-sided Heart Failure, Preserved Ef: secondary underlying pulmonary disease Echo (04/10) with preserved EF: 65-70% but elevated R ventricular systolic pressure initially was on iv Lasix 40mg bid then was on Lasix 80mg po daily f/u cxr- some what better -- 06/14 Lasix IV given diuresed well improved HTN: Stable on metoprolol David joseph level 5 DVT PROPHYLAXIS Lovenox DISPOSITION monitor in medial floor pt/ot awaiting placement social service for d/c planning Current Inpatient Medications: Current Inpatient Medications Medications (Trade) Dose Ordered Sig/Bishnu Route Start Time Stop Time Status Last Admin Dose Admin Enoxaparin Sodium (Lovenox Inj) 40 mg Q24H SC 05/23/17 21:00 06/22/17 20:59 06/14/17 20:10 40 MG Acetaminophen (Tylenol Tab) 650 mg Q4H PRN PO 05/23/17 17:45 06/22/17 17:44 06/08/17 19:13 650 MG Ondansetron HCl (Zofran Inj) 4 mg Q6H PRN IV 05/23/17 17:45 06/22/17 17:44 Polyethylene (Miralax Powder Packet) 17 gm DAILY PRN PO 05/23/17 17:45 06/22/17 17:44 Potassium Chloride (Klor-Con Tab) 20 meq BID PO 05/23/17 21:00 06/22/17 20:59 Future Hold 06/08/17 08:16 20 MEQ Aspirin (Ecotrin Tab) 81 mg DAILY PO 05/24/17 09:00 06/23/17 08:59 06/15/17 08:11 81 MG Calcium/Vitamin D (Caltrate Plus Tab) 1 tab BID PO 05/23/17 21:00 06/22/17 20:59 06/15/17 08:12 1 TAB Famotidine (Pepcid Tab) 20 mg QPM PO 05/23/17 21:00 06/22/17 20:59 06/14/17 20:11 20 MG Metoprolol Tartrate (Lopressor Tab) 25 mg BID PO 05/23/17 21:00 06/22/17 20:59 06/15/17 08:12 25 MG Nortriptyline HCl (Pamelor Cap) 25 mg QAM PO 05/24/17 09:00 06/23/17 08:59 06/15/17 08:12 25 MG Rosuvastatin Calcium (Crestor Tab) 20 mg QPM PO 05/23/17 21:00 06/22/17 20:59 06/14/17 20:11 20 MG Sodium Chloride ([place] Nasal [place]) 2 sprays BID NA 05/23/17 21:00 06/22/17 20:59 06/15/17 08:13 2 SPRAYS Sertraline HCl (Zoloft Tab) 100 mg HS PO 05/23/17 21:00 06/22/17 20:59 06/14/17 20:10 100 MG Miscellaneous Information (Order Awaiting Action) 1 ea QS N/A 05/24/17 00:00 06/23/17 00:00 Acetylcysteine (Mucomyst 20% Inh Soln) 3 ml BIDR INH 05/23/17 21:00 06/22/17 20:59 06/15/17 07:07 3 ML Non-Formulary Medication (Non-Formulary Patient'S Own Med) 1 ea HS PO 05/24/17 21:00 06/23/17 20:59 06/14/17 20:12 1 EA Prednisone (PredniSONE TAB) 40 mg DAILY PO 05/30/17 09:00 06/29/17 08:59 06/15/17 08:11 40 MG Ipratropium [place] (Atrovent 0.02% 0.5MG/2.5ML Neb) 0.5 mg Q4R INH 06/06/17 05:00 06/22/17 04:59 06/15/17 07:07 0.5 MG Levalbuterol (Xopenex 1.25MG/ 0.5ML Neb) 1.25 mg Q4R INH 06/06/17 05:00 06/22/17 04:59 06/15/17 07:07 1.25 MG Piperacillin Sod/ Tazobactam Sod 3.375 gm/Dextrose 115 ml @ 28.75 mls/ hr Q8H IV 06/15/17 02:00 06/20/17 01:59 06/15/17 10:36 28.75 MLS/HR Piperacillin Sod/ Tazobactam Sod (Consult) 1 ea UD PRN N/A 06/14/17 21:30 07/14/17 21:29
[2017-06-15] MEDS ORDERED: PANTOprazole INJ 40 MG in SYRINGE 0 ML IV ONE (11:15)
[2017-06-15] MEDS: ENOXAPARIN 40 MG/0.4 ML SYR SC SCH (20:32)
[2017-06-15] MEDS: SERTRALINE HCL 50 MG TAB PO SCH (20:33)
[2017-06-15] MEDS: FAMOTIDINE 20 MG TAB PO SCH (20:33)
[2017-06-15] MEDS: [UNRECOGNIZED DRUG - OTHER] PO SCH (20:34)
[2017-06-15] MEDS: ROSUVASTATIN CALCIUM 20 MG TAB PO SCH (20:34)
[2017-06-16] VITALS (24 sets, daily range): BP systolic 100–159; BP diastolic 64–91; PULSE 81–106; TEMP 36.5–37.1; O2SAT 83–95
[2017-06-16] MEDS: PIPERACILL/TAZOBAC IV 3.375 GM in DEXTROSE 5% 100ML IV SCH (01:52)
[2017-06-16] MEDS: IPRATROPIUM BROMIDE NEB SOLN 0.02% 2.5 ML VIAL INH SCH ×6 (03:24→23:08)
[2017-06-16] MEDS: LEVALBUTEROL 1.25MG/0.5ML NEB INH SCH ×6 (03:25→23:08)
[2017-06-16] MEDS ORDERED: CEFTRIAXONE SOD INJ 1 GM in DEXTROSE 5% ADD-VANTAGE 50ML 50 ML IV SCH (08:00)
[2017-06-16] MEDS ORDERED: FUROSEMIDE INJ 20 MG in SYRINGE 0 ML IV ONE (08:00)
--- NOTE | 2017-06-16 08:17 | Progress Note ---
Medicine Progress Note Date & Time of Visit: Jun 16, 2017 at 08:11. Subjective seen sitting up in bed, having breakfast o2 sats high 70s to 80s states she has some shortness of breath but "not too bad" not in distress, cough is the same denies abdominal pain, diarrhea denies other symptoms Objective Last 8 Hrs Date Time Temp Pulse Resp B/P (MAP) Pulse Ox O2 Delivery O2 Flow Rate FiO2 06/16/17 07:55 36.5 106 20 122/67 (85) 88 Oxymask 10.0 06/16/17 06:52 85 20 83 Mask 15.0 06/16/17 03:25 87 20 90 Mask 15.0 06/16/17 00:45 Nasal Cannula 10.0 Physical Exam: General- oriented x 3, not in distress, speaks in sentences with no effort Eyes- anicteric Neck- (+) JVD Lungs- fine crackles at the bases, no wheezing Heart- normal rate, regular rhythm; no murmurs Abdomen- non distended,normal BS, soft, nontender Extremities- no pretibial edema, no calf tenderness Neuro- alert, oriented x 3; no gross deficits Skin- warm & dry Laboratory Results: Last 24 Hours Test 06/16/17 07:53 Assessment & Plan This is a 61yo female with a PMH of chronic respiratory failure 2/2 COPD, pulmonary fibrosis (on home O2), R sided HF, HTN who presents in acute respiratory failure after home health nurse found her to be hypoxic at 57%.Was treated for health care pneumonia and finished course of abx,. Received Lasix for chf and on prednisone for ILD flare.P Acute on chronic hypoxic respiratory failure: acute copd and ILD flare Health care pneumonia- possible gm negative or mrsa Baseline of 88% on chronic O2 therapy at home (5L [place]) Found to be hypoxic at 57% prior to arrival in ED initially required NRB mask later was on high flow oxygen for couple of day Was on iv steroids, iv Levaquin and vancomycin - completed abx course Chest PT, Mucomyst 3 ML twice a day, flutter valve as per pulmonary tapering steroids- very slow taper as per pulmonary currently lasix on hold for hyponatremia -- on Mucomyst, Nebs q4h Prednisone 40mg daily, slow taper -- 06/14 (+) increased cough, with mild tachypnea Lasix 20mg IV one dose improved -- 06/16 (+) desaturation to low 70s, high 80s stat CXR, Lasix 40mg IV, nebs change to high flow 02 for now -- will need to hold placement Gram Negative Bacilli UTI -- urine culture: (+) proteus -- on Zosyn Day 2--> change to Ceftriaxone Diarrhea -- resolved -- stool for C diff Ag not collected yet -- Protonix IV Hyponatremia stable at 134 appreciate nephrology inputs to use Lasix on prn basis only. -- repeat PRP today Hyperkalemia potassium 5.2 K stable at 4 Sepsis 2/2 PNA, UTI: one bottle micrococcus -contaminant? repeat cx negative completed 10day abx course Acute on chronic R-sided Heart Failure, Preserved Ef: secondary underlying pulmonary disease Echo (04/10) with preserved EF: 65-70% but elevated R ventricular systolic pressure initially was on iv Lasix 40mg bid then was on Lasix 80mg po daily f/u cxr- some what better -- 06/14 Lasix IV given diuresed well improved -- 06/16 (+) desaturation to low 70s, high 80s stat CXR, Lasix 40mg IV, nebs change to high flow 02 for now HTN: Stable on metoprolol Code staus level 5 DVT PROPHYLAXIS Lovenox DISPOSITION monitor in medial floor pt/ot awaiting placement social service for d/c planning Current Inpatient Medications: Current Inpatient Medications Medications (Trade) Dose Ordered Sig/Bishnu Route Start Time Stop Time Status Last Admin Dose Admin Enoxaparin Sodium (Lovenox Inj) 40 mg Q24H SC 05/23/17 21:00 06/22/17 20:59 06/15/17 20:32 40 MG Acetaminophen (Tylenol Tab) 650 mg Q4H PRN PO 05/23/17 17:45 06/22/17 17:44 06/08/17 19:13 650 MG Ondansetron HCl (Zofran Inj) 4 mg Q6H PRN IV 05/23/17 17:45 06/22/17 17:44 Polyethylene (Miralax Powder Packet) 17 gm DAILY PRN PO 05/23/17 17:45 06/22/17 17:44 Potassium Chloride (Klor-Con Tab) 20 meq BID PO 05/23/17 21:00 06/22/17 20:59 Future Hold 06/08/17 08:16 20 MEQ Aspirin (Ecotrin Tab) 81 mg DAILY PO 05/24/17 09:00 06/23/17 08:59 06/15/17 08:11 81 MG Calcium/Vitamin D (Caltrate Plus Tab) 1 tab BID PO 05/23/17 21:00 06/22/17 20:59 06/15/17 20:32 1 TAB Famotidine (Pepcid Tab) 20 mg QPM PO 05/23/17 21:00 06/22/17 20:59 06/15/17 20:33 20 MG Metoprolol Tartrate (Lopressor Tab) 25 mg BID PO 05/23/17 21:00 06/22/17 20:59 06/15/17 20:33 25 MG Nortriptyline HCl (Pamelor Cap) 25 mg QAM PO 05/24/17 09:00 06/23/17 08:59 06/15/17 08:12 25 MG Rosuvastatin Calcium (Crestor Tab) 20 mg QPM PO 05/23/17 21:00 06/22/17 20:59 06/15/17 20:34 20 MG Sodium Chloride ([place] Nasal [place]) 2 sprays BID NA 05/23/17 21:00 06/22/17 20:59 06/15/17 20:31 2 SPRAYS Sertraline HCl (Zoloft Tab) 100 mg HS PO 05/23/17 21:00 06/22/17 20:59 06/15/17 20:33 100 MG Miscellaneous Information (Order Awaiting Action) 1 ea QS N/A 05/24/17 00:00 06/23/17 00:00 Non-Formulary Medication (Non-Formulary Patient'S Own Med) 1 ea HS PO 05/24/17 21:00 06/23/17 20:59 06/15/17 20:34 1 EA Prednisone (PredniSONE TAB) 40 mg DAILY PO 05/30/17 09:00 06/29/17 08:59 06/15/17 08:11 40 MG Ipratropium [place] (Atrovent 0.02% 0.5MG/2.5ML Neb) 0.5 mg Q4R INH 06/06/17 05:00 06/22/17 04:59 06/16/17 06:52 0.5 MG Levalbuterol (Xopenex 1.25MG/ 0.5ML Neb) 1.25 mg Q4R INH 06/06/17 05:00 06/22/17 04:59 06/16/17 06:52 1.25 MG Pantoprazole Sodium 40 mg/ Syringe 10 ml @ 5 mls/min DAILY@11 IV 06/16/17 11:00 07/16/17 10:59 Ceftriaxone Sodium 1 gm/ Dextrose 50 ml @ 100 mls/hr Q24H IV 06/16/17 08:00 06/26/17 07:59
--- NOTE | 2017-06-16 08:17 | DIAGNOSTIC IMAGING REPORT ---
CHEST ONE VIEW PORTABLE CLINICAL HISTORY: hypoxia COMPARISON STUDY: 06/06/2017 FINDINGS: There are progressive bilateral mixed reticular and groundglass pulmonary opacities, most pronounced in the periphery of the right midlung zone. The heart is enlarged. There are no pleural effusions.[ IMPRESSION: Progressive reticular and groundglass pulmonary opacities most pronounced in the periphery of the right midlung. Findings suggest superimposed edema or infection on chronic interstitial lung disease Electronically signed by: Go Polanco M.D. 06/16/2017 8:16 AM Dictated Date/Time: 06/16/2017 8:14 AM
[2017-06-16] MEDS: SODIUM CHLORIDE 0.65% NA SOLN 45 ML (OCEAN) SCH ×2 (08:26→20:19)
[2017-06-16] MEDS: NORTRIPTYLINE HCL 25 MG CAP PO SCH (08:28)
[2017-06-16] MEDS: CALCIUM 600MG + VIT D 400 IU TAB PO SCH ×2 (08:28→19:36)
[2017-06-16] MEDS: ASPIRIN 81 MG ECTAB PO SCH (08:28)
[2017-06-16] MEDS ORDERED: FUROSEMIDE INJ 40 MG in SYRINGE 0 ML IV ONE (08:30)
[2017-06-16 09:11] LABS: BUN/CREATININE RATIO 21.6 (10-20); CALCIUM 9.2 mg/dl (8.5-10.1); CREATININE 0.44 mg/dl (0.60-1.20); POTASSIUM 3.6 mmol/L (3.5-5.1)
[2017-06-16] MEDS: METOPROLOL TARTRATE 25 MG TAB PO SCH ×2 (09:56→19:37)
[2017-06-16] MEDS ORDERED: METHYLPREDNISOLONE IV 40 MG in SYRINGE 0 ML IV ONE (10:30)
[2017-06-16] MEDS ORDERED: PANTOprazole INJ 40 MG in SYRINGE 0 ML IV SCH (11:00)
--- NOTE | 2017-06-16 12:38 | PROGRESS NOTE ---
DATE: 06/16/2017 PROBLEM LIST: Includes: 1. Severe pulmonary fibrosis. 2. Acute on chronic hypoxic respiratory failure. 3. Diarrhea. 4. Acute on chronic right-sided heart failure. SUBJECTIVE: I was asked by Dr. Narvaez to reevaluate the patient. Apparently the patient overnight and this morning had an episode where her oxygen saturations were in the low to mid 70% range. Because of this, she was placed on high-flow oxygen, which did improve her sats temporarily. According to Dr. Narvaez, patient's Lasix had been held for the past 5 days due to some hyponatremia; however, her electrolytes did stabilize and it was restarted today. According to the patient, she is more short of breath. She is having some trouble with getting her air and she feels that she has trouble getting deep breath and she has a little bit of cough but no significant mucus production. She is not sure if she has any wheezing or not. She denies any chest pain or pressure. She has not had any palpitations or fluttering. She states that her shortness of breath just started this morning when she woke up. She states that yesterday was a good day, she really did not have any problems. In reviewing the chart, the patient has been made aware that her condition is end-stage. Last time she was seen by pulmonology was June 08, at which time palliative was on board; however, her and patient did not want to pursue any palliative measures but palliative is available if needed. She denies any other concerns or problems. No abdominal pain, no nausea or vomiting, no swelling in her extremities. OBJECTIVE: GENERAL: The patient is a 61-year-old female lying in bed. She is interactive and cooperative. She does have high-flow oxygen in place. VITAL SIGNS: Temperature 36.5, pulse 106, respirations 20, blood pressure is 122/67, pulse ox when I was in was fluctuating in the mid to upper 80s with the high-flow oxygen on. NECK: Supple. No mass. No adenopathy. No bruit. No JVD. CHEST: Diminished, questionable rales at the bases, although difficult to ascertain. CARDIOVASCULAR: Regular rate and rhythm. No murmurs, gallops or rubs noted. ABDOMEN: Bowel sounds present. Abdomen soft, nontender. No guarding, rigidity or organomegaly. EXTREMITIES: No erythema or edema. NEUROLOGIC: Cranial nerves II-XII are intact. No focal deficits noted. IMAGING: Chest x-ray, definite progression and more so on the right side than the left, maybe some mild edema noted. IMPRESSION: This is a 61-year-old female with recently severe/end-stage pulmonary fibrosis. At this point, she did have decompensation of her breathing. I suspect that it may be secondary to her not having her Lasix for several days and developing a little bit of pulmonary edema. Dr. Narvaez has given her Lasix 40 mg IV, we will see how that works for her. I think it also will be beneficial to have her be given Solu-Medrol 40 mg IV as well and hopefully that will help her to be more comfortable with her breathing. Unfortunately, her prognosis is poor, but hopefully she will improve her overall respiratory status. At this point, we will continue to follow through hospitalization. It may be prudent to have palliative medicine come in and reassess. The patient was seen and examined the plan above was agreed upon. JUAND
--- NOTE | 2017-06-16 14:46 | Palliative Care Progress Note ---
Palliative Care Progress Note Date of Service Jun 16, 2017. Subjective Pt evaluation today including: conversation w/ patient, conversation w/ family (sister, Kaitlyn; another family member present in room), physical exam, chart review Pain: none at this time PO Intake: small amounts Voiding: garcia catheter in place -I have not seen this patient since last week, but her has called me several times. I revisited and examined patient again today. She is on high- flow nasal cannula as she had an episode of SOB and hypoxia (sats in 70-80s) while on 10L oxy-mask. Her Lasix had been held for about 5 days due to hyponatremia, it was restarted yesterday. Pulmonary reevaluated patient as well , recommended some Solu-Medrol. Patient states she feels a little better today, but she does note that she still has some SOB-- which is new for her as up until now, she has not been symptomatic. -During our previous conversations, patient knows that she is severely ill, but is not ready to accept that she is at the end of life. Her goal remains to get stronger at rehab and to be able to go home. However, I was quite marly with her today, and on previous days, about the fact that I do not see that as being an option and that I am concerned her condition is worsening. Again, we discussed hospice and my recommendations. She did not disagree, but said, "I'm just not ready for that yet." Charlie, her , has told me that he too would be amenable to hospice care, but not until the patient is ready. Review of Systems Constitutional: + weakness ENT: No trouble swallowing Respiratory: + shortness of breath, + dyspnea on exertion, + dyspnea at rest, No cough, No wheezing Cardiac: No chest pain, No edema Abdomen: No pain, No nausea, No vomiting Female : No problem reported Psychiatric: + problem reported (sadness related to situation. depressed about not being able to go home.), No anxiety Objective Vital Signs Date Time Temp Pulse Resp B/P (MAP) Pulse Ox O2 Delivery O2 Flow Rate FiO2 06/16/17 11:12 88 20 93 Nasal Cannula 55.0 100 06/16/17 08:20 High Flow Oxygen Nasal Cannula 06/16/17 07:55 36.5 106 20 122/67 (85) 88 Oxymask 10.0 9/22/17 06:52 85 20 83 Mask 15.0 06/16/17 03:25 87 20 90 Mask 15.0 06/16/17 00:45 Nasal Cannula 10.0 06/16/17 00:05 36.5 86 24 100/64 (76) 84 Nasal Cannula 10.0 06/15/17 23:08 85 18 91 Mask 15.0 06/15/17 18:21 96 16 91 Mask 10.0 06/15/17 15:40 91 Oxymask 10.0 55 06/15/17 15:12 36.6 100 20 121/83 (96) 91 Oxymask 10.0 Physical Exam General Appearance: + pertinent finding (chronically ill appearing. deconditioned) ENT: hearing grossly normal Neck: supple, no JVD Respiratory/Chest: no respiratory distress, no accessory muscle use, + decreased breath sounds (RLL>LLL), + crackles (few fine in bilateral bases) Cardiovascular: regular rate, rhythm, + normal peripheral pulses Abdomen: normal bowel sounds, non tender, soft Extremities: + pertinent finding (deformities related to spina bifida, severe clubbing of fingernails/toenails) Neurologic/Psychiatric: alert, normal mood/affect, oriented x 3 Skin: + pallor Assessment and Plan Problem list: VINCENT/SOB Respiratory failure CHF COPD and pulmonary fibrosis, advanced/end-stage Weakness, generalized Right-sided heart failure- chronic Goals of care (Z51.5) Palliative care recs: -Patient's condition seems to be worsening. I would, and have, recommend hospice care for this patient. Not only would they provide symptom management to the patient, but they would provide emotional support to the patient and family when she leaves the hospital and until the end of life. I doubt very much this patient has much rehab potential, however it is her very strong wish to still try which I don't want to take from her. So I will continue to follow and provide support in any way I can. -Patient cannot leave hospital with high-flow nasal cannula, so hopefully she can be titrated down to at least 10L (maximum capability at shelter). -Roxanol would be beneficial for the air hunger. A trial of 2.5mg PO Q3h PRN could be considered, but use with caution due to potential sedation. -Last week I did do a POLST form with the patient. It was completed as follows: DNR, limited additional intervention, abx if life can be prolonged, and trial of artificial hydration/nutrition but please discontinue if no improvement or hope of recovery. I will continue to follow throughout hospitalization. Please don't hesitate to contact me with any palliative needs. Palliative Performance Scale: 40 % Continued [facility] stay due to: multiple IV medications needed, home environment unsafe for pt Discharge planning: [facility] facility
--- NOTE | 2017-06-16 19:32 | Critical Care Consultation ---
Critical Care Consultation Date of Consultation: Jun 16, 2017. Attending Physician: Jason Narvaez MD Reason for Consultation: acute resp failure. History of Present Illness Dear Dr. Alcaraz: Thank you for your kind referral of Mrs. Maurer to ICU service. this is 61 yo female , with hx of COPD and given a diagnosis of IPF as well, who was on oxygen but did not use it at home according to her , she has been having sob and in and out the hospital for resp failure since february after she fell and injured her knee ( per her ). the pt quit smoking 2 years ago and she was able to walk in the mall prior to February 2017 with a walker and without O2. the pt was admitted this time to the hospital after her physical therapist at home found her with O2 sat 57% on RA. she was admitted to the hospital for the past three weeks and found to be hyponatremic. she was taking lasix which was stopped in that regard due to low Na. she was treated with ceftriaxone for tentative diagnosis of pneumonia. lasix was restarted today, she was hypoxic even on 100% O2 and transferred to the ICU back again with acute resp failure, according to the she did not want to be intubated even in a code situation. in the ICU , the pt was mentating with sat 77% only, no cough or sputum production. no chest pain and no pain ever since,. she has clubbing and digits deformity before as well. no edema in the lower ext but she has not been ambulatory. no hemoptysis reported. she is claustrophobic and cant tolerate cpap although she never tried it. Family History Cancer BROTHER (lung CA) Social History Smoking Status: Former Smoker Drug Use: none Marital Status: Housing Status: lives with family Occupation Status: employed, disabled Allergies Coded Allergies: Lactose Intolerance (GI) (Verified Adverse Reaction, Mild, GI SYMPTOMS, ) Morphine (Verified Adverse Reaction, Mild, confusion, 05/20/17) Home Medications Scheduled Aspirin (Aspirin Ec), 81 MG PO DAILY Budesonide/Formoterol Fumarate (Symbicort 80/4.5 Inhaler), 2 PUFFS INH BID Calcium/Vitamin D (Os-Harman 500 Plus D), 1 TAB PO BID Chlordiazepoxide/Clidinium (Librax 5MG/2.5MG), 1 EA PO BID Famotidine (Pepcid), 20 MG PO QPM Furosemide (Furosemide), 20 MG PO QAM Home O2 Therapy (Oxygen), 3 LITERS NA PRN Loperamide Hcl (Imodium), 2 MG PO UD Metoprolol Tartrate (Lopressor), 25 MG PO BID Nortriptyline Hcl (Pamelor), 25 MG PO QAM Potassium Chloride (Micro-K Ext Rel), 10 MEQ PO DAILY Prednisone (Prednisone), 10 MG PO DAILY Rosuvastatin Calcium (Crestor), 20 MG PO QPM Saline (Saline Nasal [place]), 2 SPRAYS NA BID Sertraline HCl (Sertraline HCl), 100 MG PO HS Solifenacin Succinate (Vesicare), 5 MG PO QAM Tiotropium [place] (Spiriva Handihaler), 1 PUFF INH QAM [Alteril], 0.5 CAP PO HS Scheduled PRN Acetaminophen (Apap), 325 MG PO Q4 PRN for Pain or Fever Albuterol Sulfate (Proair Respiclick), 2 PUFFS INH Q4H PRN for SOB/Wheezing Diphenoxylate/Atropine (Lomotil), 1 TAB PO BID PRN for Diarrhea Levalbuterol (Levalbuterol), 1.25 MG INH Q4H PRN for Shortness of Breath Current Inpatient Medications Current Inpatient Medications Medications (Trade) Dose Ordered Sig/Bishnu Route Start Time Stop Time Status Last Admin Dose Admin Acetaminophen (Tylenol Tab) 650 mg Q4H PRN PO 05/23/17 17:45 06/22/17 17:44 06/08/17 19:13 650 MG Ondansetron HCl (Zofran Inj) 4 mg Q6H PRN IV 05/23/17 17:45 06/22/17 17:44 Polyethylene (Miralax Powder Packet) 17 gm DAILY PRN PO 05/23/17 17:45 06/22/17 17:44 Potassium Chloride (Klor-Con Tab) 20 meq BID PO 05/23/17 21:00 06/22/17 20:59 Future Hold 06/08/17 08:16 20 MEQ Aspirin (Ecotrin Tab) 81 mg DAILY PO 05/24/17 09:00 06/23/17 08:59 06/16/17 08:28 81 MG Calcium/Vitamin D (Caltrate Plus Tab) 1 tab BID PO 05/23/17 21:00 06/22/17 20:59 06/16/17 08:28 1 TAB Famotidine (Pepcid Tab) 20 mg QPM PO 05/23/17 21:00 06/22/17 20:59 06/15/17 20:33 20 MG Metoprolol Tartrate (Lopressor Tab) 25 mg BID PO 05/23/17 21:00 06/22/17 20:59 06/16/17 09:56 25 MG Nortriptyline HCl (Pamelor Cap) 25 mg QAM PO 05/24/17 09:00 06/23/17 08:59 06/16/17 08:28 25 MG Rosuvastatin Calcium (Crestor Tab) 20 mg QPM PO 05/23/17 21:00 06/22/17 20:59 06/15/17 20:34 20 MG Sodium Chloride ([place] Nasal [place]) 2 sprays BID NA 05/23/17 21:00 06/22/17 20:59 06/15/17 20:31 2 SPRAYS Sertraline HCl (Zoloft Tab) 100 mg HS PO 05/23/17 21:00 06/22/17 20:59 06/15/17 20:33 100 MG Miscellaneous Information (Order Awaiting Action) 1 ea QS N/A 05/24/17 00:00 06/23/17 00:00 Non-Formulary Medication (Non-Formulary Patient'S Own Med) 1 ea HS PO 05/24/17 21:00 06/23/17 20:59 06/15/17 20:34 1 EA Ipratropium [place] (Atrovent 0.02% 0.5MG/2.5ML Neb) 0.5 mg Q4R INH 06/06/17 05:00 06/22/17 04:59 06/16/17 15:21 0.5 MG Levalbuterol (Xopenex 1.25MG/ 0.5ML Neb) 1.25 mg Q4R INH 06/06/17 05:00 06/22/17 04:59 06/16/17 15:21 1.25 MG Methylprednisolone Sodium Succinate 125 mg/Syringe 2 ml @ 1.5 mls/min Q6 IV 06/17/17 00:00 07/16/17 19:59 UNV Pantoprazole Sodium 40 mg/ Syringe 10 ml @ 5 mls/min BID IV 06/16/17 21:00 07/16/17 10:59 UNV Piperacillin Sod/ Tazobactam Sod 3.375 gm/Dextrose 115 ml @ 200 mls/hr Q6 IV 06/17/17 00:00 06/24/17 00:00 UNV Vancomycin HCl 1000 mg/Sodium Chloride 270 ml @ 125 mls/hr Q12 IV 06/16/17 21:00 06/23/17 20:59 UNV Heparin Sodium (Porcine) (Heparin Sq 5000 Unit/0.5ml) 5,000 unit Q12 SQ 06/16/17 21:00 07/16/17 20:59 UNV Review of Systems Constitutional: No fever, No chills, No sweats, No weight loss, No weakness, No fatigue, No problem reported Respiratory: + cough, + sputum, + shortness of breath Cardiovascular: No chest pain, No orthopnea, No PND, No edema, No claudication , No palpitations, No problem reported Abdomen: No pain, No nausea, No vomiting, No diarrhea, No constipation, No GI bleeding, No problem reported Neurologic: + problem reported Psychiatric: + depression symptoms Endocrine: + fatigue Integumentary: No rash, No itch, No new/changing skin lesions, No color change , No bleeding, No problem reported Allergic / Immunologic: No environmental allergies, No seasonal allergies, No pet sensitivities, No food allergies, No hives, No frequent infections, No poor healing, No prolonged convalescence, No problem reported Physical Exam Date Time Temp Pulse Resp B/P (MAP) Pulse Ox O2 Delivery O2 Flow Rate FiO2 06/16/17 17:47 37.1 95 22 112/69 (83) 88 Nasal Cannula 55.0 100 06/16/17 17:33 37.1 93 22 88 55.0 06/16/17 15:35 88 Nasal Cannula 55.0 100 06/16/17 15:23 91 22 89 Nasal Cannula 55.0 100 06/16/17 15:10 37.1 95 20 109/74 (86) 85 High Flow Oxygen 06/16/17 11:12 88 20 93 Nasal Cannula 55.0 100 06/16/17 08:20 High Flow Oxygen Nasal Cannula 06/16/17 07:55 36.5 106 20 122/67 (85) 88 Oxymask 10.0 06/16/17 06:52 85 20 83 Mask 15.0 06/16/17 03:25 87 20 90 Mask 15.0 06/16/17 00:45 Nasal Cannula 10.0 06/16/17 00:05 36.5 86 24 100/64 (76) 84 Nasal Cannula 10.0 06/15/17 23:08 85 18 91 Mask 15.0 General Appearance: well-appearing, no apparent distress Head: normocephalic Eyes: PERRLA, no discharge, EOMI, sclerae normal ENT: normal mouth exam Neck: no stridor Respiratory: rhonchi Cardiovasular: regular rate/rhythm, normal S1S2, no M/G/R Abdomen: non tender, no masses Back: other Upper Extremities: no edema Lower Extremities: no edema Neuro: alert, oriented x 3, normal motor exam, normal sensation Psychiatric: flat affect Laboratory Results Last 24 Hours Test 06/16/17 08:11 06/16/17 18:59 Sodium Level 132 mmol/L Potassium Level 3.6 mmol/L Chloride Level 96 mmol/L Carbon Dioxide Level 30 mmol/L Anion Gap 6.0 mmol/L Blood Urea Nitrogen 10 mg/dl Creatinine 0.44 mg/dl Est Creatinine Clear Calc Drug Dose 119.2 ml/min Estimated GFR () 125.4 Estimated GFR (Non- 108.2 BUN/Creatinine Ratio 21.6 Random Glucose 74 mg/dl Calcium Level 9.2 mg/dl Diagnostic Results i have reviewed her CXR which showed much worse infiltrates bilaterally, possible pleural effusion but small. Ct chest 01/09 showed COPD changes only not IPF, LN noted in the mediatinum. PFTs , per Dr. Becerra showed obstructive pattern not restrictive pattern. previous CXR showed hyperinflated lungs. Assessment & Plan 1- ALI while the pt is not symptomatic makes me concerns about evolving infectious process such MRSA Pneumonia especially with possive MRSA screen. 2- no evidence of IPF by imaging nor by PTF's. 3- severe COPD GOLD IV with poor performance status. 4- the sudden worsening of imaging and saturation is concerning also for pulm hemorrhage while on Lovenox ( 40 mg is a high dose for a small BMI pt). 5- with hx of spina bifida corrected surgically and restrictive pattern could not be identified on the PFT's which place the pt at higher risk for recurrent aspiration of gastric contents. 6- the digits deformities are concerning for RF undiagnosed. 7- the pt has also RML nodule on a ct from 01/09, spiculated. with LN. Plan: 1- I have had a long discussion with the pt and her in regard of her treatment , they do not want intubation at any circumstances. 2- increase steroids to a salvage therapy using Gold rec or Scoop rec 125 mg of methylprednisolone every 6 hrs. 3- continue BD. 4- Ct chest once possible. 5- Bipap with 06/28 increased to target 18/10. 6- accept sat of 85%. 7- continue lasix 40 mg iv bid. 8- broad Abx coverage to vanco and sozyn, will treat as if HCAP. 9- I am suspicious about pulm hemorrhage, I will change Lovenox to Heparin Sc 5000 units every 12 hrs. can not perform a bronch without intubation. 10- obtain CCP and RF daily. 11- the pt is DNI. 12- agree with Dr. Becerra and palliative care noted. discussed with the staff in details. CCT 60 min.
[2017-06-16] MEDS: ROSUVASTATIN CALCIUM 20 MG TAB PO SCH (19:37)
[2017-06-16] MEDS: [UNRECOGNIZED DRUG - OTHER] PO SCH (19:37)
[2017-06-16] MEDS: FAMOTIDINE 20 MG TAB PO SCH (19:39)
[2017-06-16] MEDS: SERTRALINE HCL 50 MG TAB PO SCH (19:40)
[2017-06-16] MEDS ORDERED: VANCOMYCIN INJ 1,500 MG in SODIUM CHLORIDE 0.9% 500ML 500 ML IV ONE (19:44)
[2017-06-16] MEDS ORDERED: PIPERACILL/TAZOBAC IV 3.375 GM in DEXTROSE 5% 100ML 100 ML IV ONE (19:46)
[2017-06-16] MEDS ORDERED: METHYLPREDNISOLONE IV 40 MG in SYRINGE 0 ML IV SCH (20:00)
[2017-06-16] MEDS ORDERED: VANCOMYCIN CONSULT ACTIVE PRN (20:00)
[2017-06-16] MEDS ORDERED: PIPERACILL/TAZOBAC CONSULT ACTIVE PRN (20:00)
[2017-06-16] MEDS: PANTOprazole INJ 40 MG in SYRINGE 0 ML IV SCH (20:18)
[2017-06-16] MEDS: HEPARIN SOD 5000 UNIT/0.5 ML CARP SQ SCH (20:29)
[2017-06-16] MEDS: FUROSEMIDE INJ 40 MG in SYRINGE 0 ML IV SCH (20:31)
--- NOTE | 2017-06-16 21:46 | Pharmacy Progress Note ---
Pharmacy Abx Initial Consult Date of Service Jun 16, 2017. Pharmacy Dosing Scope Date of Consult: 06/16/17 Consultation requested by: Dr. Lew Pharmacy is consulted to initiate Vancomycin and Zosyn IV dosing therapy, order appropriate labs and adjust drug dose/frequency. Subjective The patient is a 61 year old female admitted on May 23, 2017 at 17:44. Objective Height (Feet): 5 Height (Inches): 3.00 Weight (Kilograms): 63.800 Vital Signs (Past 12Hrs) Vital Signs Past 12 Hours Date Time Temp Pulse Resp B/P (MAP) Pulse Ox O2 Delivery O2 Flow Rate FiO2 06/16/17 20:13 89 94 100 06/16/17 20:11 89 25 94 BiPAP/CPAP 100 06/16/17 17:47 37.1 95 22 112/69 (83) 88 Nasal Cannula 55.0 100 06/16/17 17:33 37.1 93 22 88 55.0 06/16/17 15:35 88 Nasal Cannula 55.0 100 06/16/17 15:23 91 22 89 Nasal Cannula 55.0 100 06/16/17 15:10 37.1 95 20 109/74 (86) 85 High Flow Oxygen 06/16/17 11:12 88 20 93 Nasal Cannula 55.0 100 Lab Results (24Hrs) Laboratory Tests (24 Hours) Test 06/16/17 19:32 Micro Results Date/Time Source Procedure Growth Status 05/27/17 15:43 Blood Blood Culture - Final NO GROWTH Complete 05/27/17 15:32 Blood Blood Culture - Final NO GROWTH Complete 05/23/17 13:20 Blood Blood Culture - Final Micrococcus Species Complete 05/23/17 13:15 Blood Blood Culture - Final NO GROWTH Complete 05/23/17 14:10 Nasal MRSA DNA Surveillance Screen - Final Specimen Positive for MRSA by DNA Probe Complete 06/14/17 00:00 Urine,Catheterized Urine Culture - Final Proteus Mirabilis Complete 05/23/17 19:30 Urine , Clean Catch Urine Culture - Final NO GROWTH - LESS THAN 1,000 COLONIES/ML Complete Risk Factors for Resistance * Hospitalization for 48 hours or more within the past 90 days * Current hospitalization > 5 days * Antimicrobial use within the last 90 days Assessment & Plan Assessment 61 year old female being restarted on empiric IV Vancomycin and Zosyn for HAP. She has been admitted since 05/23/17. * Patient completed 7 days of Vancomycin 05/23-05/31. * Vancomycin dosing regimen of 1000mg IV q12 resulted in subtherapeutic trough level while 1000mg IV q10 produced supratherapeutic levels. Renal function appears to be stable. Therefore, will chose q10 interval with 25% reduced dose to target a lower trough. Plan Vancomycin IV * Loading dose: 1500 mg (~23 mg/kg) * Maintenance dose: 750 mg IV (~12 mg/kg) every 10 hours * Goal trough level for pneumonia : 15 to 20 mcg/mL * Trough level ordered for 06/18 @ 1130 Piperacillin/tazobactam * 3.375 g bolus administered over 30 minutes, then 3.375 g IV extended infusion every 8 hours for CrCl greater than 20 mL/min Pharmacy will continue to follow and will adjust dose/frequency as necessary. Thank you.
[2017-06-16] MEDS: METHYLPREDNISOLONE IV 125 MG in SYRINGE 0 ML IV SCH (23:39)
[2017-06-17] VITALS (35 sets, daily range): BP systolic 129–172; BP diastolic 73–98; PULSE 79–105; TEMP 36.2–36.6; O2SAT 84–97
[2017-06-17] MEDS: PIPERACILL/TAZOBAC IV 3.375 GM in DEXTROSE 5% 100ML IV SCH ×3 (01:24→17:35)
[2017-06-17] MEDS: IPRATROPIUM BROMIDE NEB SOLN 0.02% 2.5 ML VIAL INH SCH ×6 (03:23→23:33)
[2017-06-17] MEDS: LEVALBUTEROL 1.25MG/0.5ML NEB INH SCH ×6 (03:23→23:33)
[2017-06-17 05:16] LABS: BASO % 0.1 %; BASO ABS # 0.02 K/uL (0-0.2); COMPLETE YES; EOS % 0.1 %; HEMATOCRIT 31.8 % (37-47); LYMPH % 5.6 %; LYMPH ABS # 0.93 K/uL (1.2-3.4); MEAN CELL VOLUME 91.6 fL (80-100); MEAN CORPUSCULAR HEMOGLOBIN 28.8 pg (25-34); MEAN CORPUSCULAR HGB CONC 31.4 g/dl (32-36); MEAN PLATELET VOLUME 9.3 fL (7.4-10.4); MONO % 1.6 %; NEUT % 90.6 %; PLATELET COUNT 265 K/uL (130-400); RED BLOOD COUNT 3.47 M/uL (4.2-5.4); WHITE BLOOD COUNT 16.63 K/uL (4.8-10.8)
[2017-06-17] MEDS: VANCOMYCIN INJ 750 MG in SODIUM CHLORIDE 0.9% 250ML 250 ML IV SCH ×2 (05:25→15:15)
[2017-06-17] MEDS: METHYLPREDNISOLONE IV 125 MG in SYRINGE 0 ML IV SCH ×4 (05:25→23:22)
[2017-06-17 05:32] LABS: BUN/CREATININE RATIO 26.6 (10-20); CALCIUM 8.7 mg/dl (8.5-10.1); CREATININE 0.65 mg/dl (0.60-1.20); POTASSIUM 3.7 mmol/L (3.5-5.1)
[2017-06-17] MEDS: PANTOprazole INJ 40 MG in SYRINGE 0 ML IV SCH (08:57)
[2017-06-17] MEDS: SODIUM CHLORIDE 0.65% NA SOLN 45 ML (OCEAN) SCH ×2 (08:58→21:29)
[2017-06-17] MEDS: NORTRIPTYLINE HCL 25 MG CAP PO SCH (08:58)
[2017-06-17] MEDS: FUROSEMIDE INJ 40 MG in SYRINGE 0 ML IV SCH (08:58)
[2017-06-17] MEDS: CALCIUM 600MG + VIT D 400 IU TAB PO SCH ×2 (08:58→21:29)
[2017-06-17] MEDS: ASPIRIN 81 MG ECTAB PO SCH (08:58)
[2017-06-17] MEDS: METOPROLOL TARTRATE 25 MG TAB PO SCH ×2 (08:59→21:30)
[2017-06-17] MEDS: HEPARIN SOD 5000 UNIT/0.5 ML CARP SQ SCH ×2 (09:00→21:32)
--- NOTE | 2017-06-17 09:33 | Critical Care Progress Note ---
Critical Care Progress Note Date of Service Jun 17, 2017. Attending Dr. Lew Subjective she denies sob or chest pain, she tolerated the BIPAP last night for 7 hours ( per pt). no events overnight in general. Objective as above. Current SOFA Score SOFA Score Response (Comments) Value PaO2/FiO2 (mmHg) < 100 4 SaO2 / FIO2 < 67 4 Platelets (x10) > 150 0 Bilirubin (mg/dL) < 1.2 0 [place] Coma Score 13 - 14 1 Level of Hypotension No Hypotension 0 Creatinine (mg/dL) < 1.2 0 Total 9 Assessment & Plan 1- ALI , ARDS likely given her P/F ratio. 2- COPD GOLD IV . now literally immobile. 3- spina bifida with surgical correction , possible contributing to a chest wall deformity compromising her resp status. 4- I could not find evidence of IPF. awaiting repeat CT chest. to r/o Sonia Rich syndrome. 5- given her contamination with MRSA , the pt should be treated for HCAP until proven otherwise. 6- r/o for RA. 7- acute on chronic resp failure, hypoxic primarily. Plan: 1- continue salvage dose of solumedrol. 2- continue BIPAP nocturnally and change the daytime to 4/4 on and off. 3- continue BD. 4- continue Vanco and Zosyn. 5- Ct chest without a contrast eval for fibrosis, which has not been obvious on previous ct chest, especially with no change in DLCO and FVC on previous PFT's. 6- change Lasix to 40 mg po daily. 7- check BNP. 8- OOB is possible. 9- long discussion with the pt and her , they were clear they would not want intubation. 10- they do want CPR initiated in the event of cardiac arrest. 11- discussed with the staff on rounds. CCT 35 min. Consults & Procedures Consultants: ccm. pulmonary. Procedures: none. Data Medications: Current Inpatient Medications Medications (Trade) Dose Ordered Sig/Bishnu Route Start Time Stop Time Status Last Admin Dose Admin Acetaminophen (Tylenol Tab) 650 mg Q4H PRN PO 05/23/17 17:45 06/22/17 17:44 06/08/17 19:13 650 MG Ondansetron HCl (Zofran Inj) 4 mg Q6H PRN IV 05/23/17 17:45 06/22/17 17:44 Polyethylene (Miralax Powder Packet) 17 gm DAILY PRN PO 05/23/17 17:45 06/22/17 17:44 Potassium Chloride (Klor-Con Tab) 20 meq BID PO 05/23/17 21:00 06/22/17 20:59 Future Hold 06/08/17 08:16 20 MEQ Aspirin (Ecotrin Tab) 81 mg DAILY PO 05/24/17 09:00 06/23/17 08:59 06/17/17 08:58 81 MG Calcium/Vitamin D (Caltrate Plus Tab) 1 tab BID PO 05/23/17 21:00 06/22/17 20:59 06/17/17 08:58 1 TAB Metoprolol Tartrate (Lopressor Tab) 25 mg BID PO 05/23/17 21:00 06/22/17 20:59 06/17/17 08:59 25 MG Nortriptyline HCl (Pamelor Cap) 25 mg QAM PO 05/24/17 09:00 06/23/17 08:59 06/17/17 08:58 25 MG Rosuvastatin Calcium (Crestor Tab) 20 mg QPM PO 05/23/17 21:00 06/22/17 20:59 06/16/17 19:37 20 MG Sodium Chloride ([place] Nasal [place]) 2 sprays BID NA 05/23/17 21:00 06/22/17 20:59 06/17/17 08:58 2 SPRAYS Sertraline HCl (Zoloft Tab) 100 mg HS PO 05/23/17 21:00 06/22/17 20:59 06/16/17 19:40 100 MG Miscellaneous Information (Order Awaiting Action) 1 ea QS N/A 05/24/17 00:00 06/23/17 00:00 Non-Formulary Medication (Non-Formulary Patient'S Own Med) 1 ea HS PO 05/24/17 21:00 06/23/17 20:59 06/16/17 19:37 1 EA Ipratropium [place] (Atrovent 0.02% 0.5MG/2.5ML Neb) 0.5 mg Q4R INH 06/06/17 05:00 06/22/17 04:59 06/17/17 07:26 0.5 MG Levalbuterol (Xopenex 1.25MG/ 0.5ML Neb) 1.25 mg Q4R INH 06/06/17 05:00 06/22/17 04:59 06/17/17 07:27 1.25 MG Methylprednisolone Sodium Succinate 125 mg/Syringe 2 ml @ 1.5 mls/min Q6 IV 06/17/17 00:00 07/16/17 19:59 06/17/17 05:25 1.5 MLS/MIN Heparin Sodium (Porcine) (Heparin Sq 5000 Unit/0.5ml) 5,000 unit Q12 SQ 06/16/17 21:00 07/16/17 20:59 06/17/17 09:00 5,000 UNIT Vancomycin HCl (Consult) 1 ea UD PRN N/A 06/16/17 20:00 07/16/17 19:59 Piperacillin Sod/ Tazobactam Sod (Consult) 1 ea UD PRN N/A 06/16/17 20:00 07/16/17 19:59 Vancomycin HCl 750 mg/Sodium Chloride 265 ml @ 125 mls/hr Q10H IV 06/17/17 06:00 06/23/17 05:59 06/17/17 05:25 125 MLS/HR Piperacillin Sod/ Tazobactam Sod 3.375 gm/Dextrose 115 ml @ 28.75 mls/ hr Q8H IV 06/17/17 02:00 06/23/17 01:59 06/17/17 01:24 28.75 MLS/HR Pantoprazole Sodium (Protonix Tab) 40 mg BID PO 06/17/17 21:00 07/17/17 20:59 UNV Furosemide (Lasix Tab) 40 mg QAM PO 06/18/17 09:00 07/18/17 08:59 UNV Vital Signs: Date Time Temp Pulse Resp B/P (MAP) Pulse Ox O2 Delivery O2 Flow Rate FiO2 06/17/17 07:26 91 26 95 BiPAP/CPAP 100 06/17/17 06:01 79 23 138/89 (105) 93 06/17/17 06:00 80 23 95 06/17/17 05:48 85 26 146/88 (107) 91 06/17/17 05:00 36.2 83 21 94 06/17/17 04:08 93 BiPAP 100 06/17/17 04:01 80 18 172/85 (114) 95 06/17/17 04:00 83 21 94 06/17/17 03:23 82 21 94 BiPAP/CPAP 100 06/17/17 03:01 83 19 152/83 (106) 95 06/17/17 03:00 84 21 97 06/17/17 02:01 84 19 136/94 (108) 94 06/17/17 02:00 83 22 95 06/17/17 01:01 84 21 138/76 (96) 93 06/17/17 01:00 83 19 94 06/17/17 00:01 36.6 90 25 129/73 (91) 94 06/17/17 00:00 87 22 94 06/17/17 00:00 93 BiPAP 100 06/16/17 23:08 86 21 93 BiPAP/CPAP 100 06/16/17 23:01 81 21 144/74 (97) 93 06/16/17 23:00 81 21 95 06/16/17 22:22 84 95 100 06/16/17 22:01 85 22 126/78 (94) 95 06/16/17 22:00 85 22 89 06/16/17 21:01 89 26 144/68 (93) 90 06/16/17 21:00 91 22 85 BiPAP 06/16/17 20:13 89 94 100 06/16/17 20:11 89 25 94 BiPAP/CPAP 100 06/16/17 20:01 93 28 159/91 (113) 85 06/16/17 20:00 36.7 93 25 85 High Flow Oxygen 06/16/17 20:00 90 BiPAP 06/16/17 19:47 98 34 144/88 (106) 85 06/16/17 19:00 95 27 85 06/16/17 17:47 37.1 95 22 112/69 (83) 88 Nasal Cannula 55.0 100 06/16/17 17:33 37.1 93 22 88 55.0 06/16/17 15:35 88 Nasal Cannula 55.0 100 06/16/17 15:23 91 22 89 Nasal Cannula 55.0 100 06/16/17 15:10 37.1 95 20 109/74 (86) 85 High Flow Oxygen 06/16/17 11:12 88 20 93 Nasal Cannula 55.0 100 Laboratory Results: Last 24 Hours Test 06/16/17 19:14 06/17/17 00:01 06/17/17 04:51 06/17/17 05:53 Rheumatoid Factor < 10.0 U/mL Cyclic Citrullinated Peptide IgG Ab < 0.40 U/mL Bedside Glucose 120 mg/dl 130 mg/dl White Blood Count 16.63 K/uL Red Blood Count 3.47 M/uL Hemoglobin 10.0 g/dL Hematocrit 31.8 % Mean Corpuscular Volume 91.6 fL Mean Corpuscular Hemoglobin 28.8 pg Mean Corpuscular Hemoglobin Concent 31.4 g/dl Platelet Count 265 K/uL Mean Platelet Volume 9.3 fL Neutrophils (%) (Auto) 90.6 % Lymphocytes (%) (Auto) 5.6 % Monocytes (%) (Auto) 1.6 % Eosinophils (%) (Auto) 0.1 % Basophils (%) (Auto) 0.1 % Neutrophils # (Auto) 15.08 K/uL Lymphocytes # (Auto) 0.93 K/uL Monocytes # (Auto) 0.26 K/uL Eosinophils # (Auto) 0.01 K/uL Basophils # (Auto) 0.02 K/uL RDW Standard Deviation 57.3 fL RDW Coefficient of Variation 17.5 % Immature Granulocyte % (Auto) 2.0 % Immature Granulocyte # (Auto) 0.33 K/uL Nucleated RBC Absolute Count (auto) 0.04 K/uL Nucleated Red Blood Cells % 0.3 % Sodium Level 132 mmol/L Potassium Level 3.7 mmol/L Chloride Level 94 mmol/L Carbon Dioxide Level 31 mmol/L Anion Gap 7.0 mmol/L Blood Urea Nitrogen 17 mg/dl Creatinine 0.65 mg/dl Est Creatinine Clear Calc Drug Dose 80.7 ml/min Estimated GFR () 110.3 Estimated GFR (Non- 95.2 BUN/Creatinine Ratio 26.6 Random Glucose 135 mg/dl Calcium Level 8.7 mg/dl Test 06/17/17 09:11
--- NOTE | 2017-06-17 09:49 | DIAGNOSTIC IMAGING REPORT ---
(CHEST) THORAX WITHOUT CT DOSE: 373.87 mGy.cm HISTORY: worsening CXR despite aggressive treatment for PNA and COPD. TECHNIQUE: Multiaxial CT images of the chest were performed without contrast. A dose lowering technique was utilized adhering to the principles of ALARA. COMPARISON: Chest 06/16/2017. Chest CT 04/17/2017. FINDINGS: Respiratory motion artifact. No pleural effusions. No pneumothorax. Trace mucoid material within the right mainstem bronchus. Interstitial thickening and near diffuse groundglass opacities have progressed. Calcified granuloma within the right upper lobe. Calcified right hilar lymph nodes. Limited views of the liver and spleen are unremarkable. Normal caliber thoracic aorta. The heart is normal in size. Mild mediastinal lymphadenopathy, unchanged. IMPRESSION: Respiratory motion artifact. Advanced emphysema with diffuse interstitial thickening is again noted. There is been progression of the near diffuse groundglass airspace opacities. This could represent an atypical pneumonitis versus less likely superimposed pulmonary edema. Electronically signed by: Maoy Sebastian M.D. 06/17/2017 9:47 AM Dictated Date/Time: 06/17/2017 9:42 AM
[2017-06-17] MEDS ORDERED: BISACODYL 10 MG SUPP PR PRN ×2 (10:00→11:00)
--- NOTE | 2017-06-17 10:45 | Progress Note ---
Medicine Progress Note Date & Time of Visit: Jun 17, 2017 at 10:32. Subjective patient transferred to ICU last night per Pulm SVC recommendations placed on Bipap, given additional Solumedrol, Lasix and Vanc + Zosyn this AM, patient just got back from CT scan states she feels improved today dyspnea and cough improved compared to yesterday, on high flow o2 during exam denies headache, chest pain, abdominal pain, fever/chills no other symptoms Objective Last 8 Hrs Date Time Temp Pulse Resp B/P (MAP) Pulse Ox O2 Delivery O2 Flow Rate FiO2 06/17/17 08:00 96 BiPAP 100 06/17/17 08:00 36.5 105 32 147/98 (114) 96 BiPAP 100 06/17/17 07:26 91 26 95 BiPAP/CPAP 100 06/17/17 06:01 79 23 138/89 (105) 93 06/17/17 06:00 80 23 95 06/17/17 05:48 85 26 146/88 (107) 91 06/17/17 05:00 36.2 83 21 94 06/17/17 04:08 93 BiPAP 100 06/17/17 04:01 80 18 172/85 (114) 95 06/17/17 04:00 83 21 94 06/17/17 03:23 82 21 94 BiPAP/CPAP 100 06/17/17 03:01 83 19 152/83 (106) 95 06/17/17 03:00 84 21 97 Physical Exam: General- oriented x 3, not in distress, speaks in sentences with no effort Eyes- anicteric Neck- no JVD Lungs- clear breath sounds bilaterally, no rales/wheezes Heart- normal rate, regular rhythm; no murmurs Abdomen- non distended,normal Bowel sounds, soft, nontender Extremities- no pretibial edema, no calf tenderness Neuro- alert, oriented x 3; no gross deficits Skin- warm & dry Laboratory Results: Last 24 Hours Test 06/16/17 19:14 06/17/17 00:01 06/17/17 04:51 06/17/17 05:53 Rheumatoid Factor < 10.0 U/mL Cyclic Citrullinated Peptide IgG Ab < 0.40 U/mL Bedside Glucose 120 mg/dl 130 mg/dl White Blood Count 16.63 K/uL Red Blood Count 3.47 M/uL Hemoglobin 10.0 g/dL Hematocrit 31.8 % Mean Corpuscular Volume 91.6 fL Mean Corpuscular Hemoglobin 28.8 pg Mean Corpuscular Hemoglobin Concent 31.4 g/dl Platelet Count 265 K/uL Mean Platelet Volume 9.3 fL Neutrophils (%) (Auto) 90.6 % Lymphocytes (%) (Auto) 5.6 % Monocytes (%) (Auto) 1.6 % Eosinophils (%) (Auto) 0.1 % Basophils (%) (Auto) 0.1 % Neutrophils # (Auto) 15.08 K/uL Lymphocytes # (Auto) 0.93 K/uL Monocytes # (Auto) 0.26 K/uL Eosinophils # (Auto) 0.01 K/uL Basophils # (Auto) 0.02 K/uL RDW Standard Deviation 57.3 fL RDW Coefficient of Variation 17.5 % Immature Granulocyte % (Auto) 2.0 % Immature Granulocyte # (Auto) 0.33 K/uL Nucleated RBC Absolute Count (auto) 0.04 K/uL Nucleated Red Blood Cells % 0.3 % Sodium Level 132 mmol/L Potassium Level 3.7 mmol/L Chloride Level 94 mmol/L Carbon Dioxide Level 31 mmol/L Anion Gap 7.0 mmol/L Blood Urea Nitrogen 17 mg/dl Creatinine 0.65 mg/dl Est Creatinine Clear Calc Drug Dose 80.7 ml/min Estimated GFR () 110.3 Estimated GFR (Non- 95.2 BUN/Creatinine Ratio 26.6 Random Glucose 135 mg/dl Calcium Level 8.7 mg/dl Test 06/17/17 09:19 Pro-B-Type Natriuretic Peptide 316 pg/ml Assessment & Plan This is a 61yo female with a PMH of chronic respiratory failure 2/2 COPD, pulmonary fibrosis (on home O2), R sided HF, HTN who presents in acute respiratory failure after home health nurse found her to be hypoxic at 57%.Was treated for health care pneumonia and finished course of abx,. Received Lasix for chf and on prednisone for ILD flare.P Acute on Chronic hypoxic respiratory failure: Acute copd and ILD flare Possible Other Underlying Inflammatory Process- BOOP? -- was on Mucomyst, Nebs q4h Prednisone 40mg daily, slow taper -- 06/14 (+) increased cough, with mild tachypnea Lasix 20mg IV one dose improved clinically -- 06/16 (+) desaturation to low 70s, high 80s transferred to ICU - 06/17: oxygenation improving CT chest: IMPRESSION: Respiratory motion artifact. Advanced emphysema with diffuse interstitial thickening is again noted. There is been progression of the near diffuse groundglass airspace opacities. This could represent an atypical pneumonitis versus less likely superimposed pulmonary edema. - currently on Vanc + Zosyn day 1 Solumedrol 125mg q6h Nebs q4h Lasix daily alternating Bipap and high flow 02 - improving but will continue to closely monitor -- discussed case with Dr. Lew discussed care with patient and her at length, all questions answered , they are both comfortable and agreeable with plan of care expressed gratitude for the care Gram Negative Bacilli UTI -- urine culture: (+) proteus -- on Zosyn Diarrhea -- resolved -- Protonix IV Hyponatremia stable at 132 appreciate nephrology inputs to use Lasix on prn basis only. Hyperkalemia potassium 5.2 K stable s/p Sepsis 2/2 PNA, UTI: one bottle micrococcus -contaminant? completed 10day abx course s/p Acute on chronic R-sided Heart Failure, Preserved Ef: secondary underlying pulmonary disease Echo (04/10) with preserved EF: 65-70% but elevated R ventricular systolic pressure initially was on iv Lasix 40mg bid then was on Lasix 80mg po daily f/u cxr- some what better -- 06/14 Lasix IV given diuresed well improved -- 06/16 (+) desaturation to low 70s, high 80s stat CXR, Lasix 40mg IV, nebs change to high flow 02 -- on lasix daily HTN: Stable on metoprolol Code staus level 3 - per discussion with patient and DVT PROPHYLAXIS Heparin DISPOSITION pending Continued [facility] stay due to: multiple IV medications needed, home environment unsafe for pt Discharge planning: nursing home facility Current Inpatient Medications: Current Inpatient Medications Medications (Trade) Dose Ordered Sig/Bishnu Route Start Time Stop Time Status Last Admin Dose Admin Acetaminophen (Tylenol Tab) 650 mg Q4H PRN PO 05/23/17 17:45 06/22/17 17:44 06/08/17 19:13 650 MG Ondansetron HCl (Zofran Inj) 4 mg Q6H PRN IV 05/23/17 17:45 06/22/17 17:44 Polyethylene (Miralax Powder Packet) 17 gm DAILY PRN PO 05/23/17 17:45 06/22/17 17:44 Potassium Chloride (Klor-Con Tab) 20 meq BID PO 05/23/17 21:00 06/22/17 20:59 Future Hold 06/08/17 08:16 20 MEQ Aspirin (Ecotrin Tab) 81 mg DAILY PO 05/24/17 09:00 06/23/17 08:59 06/17/17 08:58 81 MG Calcium/Vitamin D (Caltrate Plus Tab) 1 tab BID PO 05/23/17 21:00 06/22/17 20:59 06/17/17 08:58 1 TAB Metoprolol Tartrate (Lopressor Tab) 25 mg BID PO 05/23/17 21:00 06/22/17 20:59 06/17/17 08:59 25 MG Nortriptyline HCl (Pamelor Cap) 25 mg QAM PO 05/24/17 09:00 06/23/17 08:59 06/17/17 08:58 25 MG Rosuvastatin Calcium (Crestor Tab) 20 mg QPM PO 05/23/17 21:00 06/22/17 20:59 06/16/17 19:37 20 MG Sodium Chloride ([place] Nasal [place]) 2 sprays BID NA 05/23/17 21:00 06/22/17 20:59 06/17/17 08:58 2 SPRAYS Sertraline HCl (Zoloft Tab) 100 mg HS PO 05/23/17 21:00 06/22/17 20:59 06/16/17 19:40 100 MG Miscellaneous Information (Order Awaiting Action) 1 ea QS N/A 05/24/17 00:00 06/23/17 00:00 Non-Formulary Medication (Non-Formulary Patient'S Own Med) 1 ea HS PO 05/24/17 21:00 06/23/17 20:59 06/16/17 19:37 1 EA Ipratropium [place] (Atrovent 0.02% 0.5MG/2.5ML Neb) 0.5 mg Q4R INH 06/06/17 05:00 06/22/17 04:59 06/17/17 07:26 0.5 MG Levalbuterol (Xopenex 1.25MG/ 0.5ML Neb) 1.25 mg Q4R INH 06/06/17 05:00 06/22/17 04:59 06/17/17 07:27 1.25 MG Methylprednisolone Sodium Succinate 125 mg/Syringe 2 ml @ 1.5 mls/min Q6 IV 06/17/17 00:00 07/16/17 19:59 06/17/17 05:25 1.5 MLS/MIN Heparin Sodium (Porcine) (Heparin Sq 5000 Unit/0.5ml) 5,000 unit Q12 SQ 06/16/17 21:00 07/16/17 20:59 06/17/17 09:00 5,000 UNIT Vancomycin HCl (Consult) 1 ea UD PRN N/A 06/16/17 20:00 07/16/17 19:59 Piperacillin Sod/ Tazobactam Sod (Consult) 1 ea UD PRN N/A 06/16/17 20:00 07/16/17 19:59 Vancomycin HCl 750 mg/Sodium Chloride 265 ml @ 125 mls/hr Q10H IV 06/17/17 06:00 06/23/17 05:59 06/17/17 05:25 125 MLS/HR Piperacillin Sod/ Tazobactam Sod 3.375 gm/Dextrose 115 ml @ 28.75 mls/ hr Q8H IV 06/17/17 02:00 06/23/17 01:59 06/17/17 01:24 28.75 MLS/HR Pantoprazole Sodium (Protonix Tab) 40 mg BID PO 06/17/17 21:00 07/17/17 20:59 Furosemide (Lasix Tab) 40 mg QAM PO 06/18/17 09:00 07/18/17 08:59 Bisacodyl (Dulcolax Supp) 10 mg DAILY PRN [place] 06/17/17 10:00 07/17/17 09:59 Miscellaneous Information (Nursing Verbal Med Order) 1 ea ONE ONCE N/A 06/17/17 10:30 06/17/17 10:31 UNV
[2017-06-17 19:18] LABS: BASO % 0.1 %; BASO ABS # 0.01 K/uL (0-0.2); COMPLETE YES; EOS % 0.1 %; HEMATOCRIT 30.2 % (37-47); LYMPH % 6.6 %; LYMPH ABS # 1.25 K/uL (1.2-3.4); MEAN CELL VOLUME 90.4 fL (80-100); MEAN CORPUSCULAR HEMOGLOBIN 29.9 pg (25-34); MEAN CORPUSCULAR HGB CONC 33.1 g/dl (32-36); MEAN PLATELET VOLUME 9.3 fL (7.4-10.4); NEUT % 87.2 %; PLATELET COUNT 269 K/uL (130-400); RED BLOOD COUNT 3.34 M/uL (4.2-5.4); WHITE BLOOD COUNT 18.93 K/uL (4.8-10.8)
[2017-06-17 19:53] LABS: BUN/CREATININE RATIO 31.3 (10-20); CALCIUM 8.8 mg/dl (8.5-10.1); CREATININE 0.59 mg/dl (0.60-1.20)
[2017-06-17 21:05] LABS: POTASSIUM 3.1 mmol/L (3.5-5.1)
[2017-06-17] MEDS: ROSUVASTATIN CALCIUM 20 MG TAB PO SCH (21:30)
[2017-06-17] MEDS: [UNRECOGNIZED DRUG - OTHER] PO SCH (21:30)
[2017-06-17] MEDS: SERTRALINE HCL 50 MG TAB PO SCH (21:31)
[2017-06-17] MEDS: PANTOprazole SOD 40 MG TAB PO SCH (21:31)
[2017-06-18] VITALS (24 sets, daily range): BP systolic 119–166; BP diastolic 8–99; PULSE 75–105; TEMP 36.4–36.8; O2SAT 82–100
[2017-06-18] MEDS: VANCOMYCIN INJ 750 MG in SODIUM CHLORIDE 0.9% 250ML 250 ML IV SCH ×2 (02:26→12:19)
[2017-06-18] MEDS: PIPERACILL/TAZOBAC IV 3.375 GM in DEXTROSE 5% 100ML IV SCH ×3 (02:29→18:40)
[2017-06-18] MEDS: LEVALBUTEROL 1.25MG/0.5ML NEB INH SCH ×6 (03:43→23:25)
[2017-06-18] MEDS: IPRATROPIUM BROMIDE NEB SOLN 0.02% 2.5 ML VIAL INH SCH ×6 (03:43→23:25)
[2017-06-18] MEDS: METHYLPREDNISOLONE IV 125 MG in SYRINGE 0 ML IV SCH ×4 (06:58→23:17)
[2017-06-18] MEDS: NORTRIPTYLINE HCL 25 MG CAP PO SCH (09:38)
[2017-06-18] MEDS: METOPROLOL TARTRATE 25 MG TAB PO SCH ×2 (09:38→20:12)
[2017-06-18] MEDS: SODIUM CHLORIDE 0.65% NA SOLN 45 ML (OCEAN) SCH ×2 (09:38→20:12)
[2017-06-18] MEDS: FUROSEMIDE 40 MG TAB PO SCH (09:38)
[2017-06-18] MEDS: ASPIRIN 81 MG ECTAB PO SCH (09:39)
[2017-06-18] MEDS: HEPARIN SOD 5000 UNIT/0.5 ML CARP SQ SCH ×2 (09:39→20:13)
[2017-06-18] MEDS: CALCIUM 600MG + VIT D 400 IU TAB PO SCH ×2 (09:39→20:11)
[2017-06-18] MEDS: PANTOprazole SOD 40 MG TAB PO SCH ×2 (09:39→20:12)
--- NOTE | 2017-06-18 10:00 | Critical Care Progress Note ---
Critical Care Progress Note Date of Service Jun 18, 2017. Attending Dr. Lew Subjective no events overnight, the pt remains asymptomatic, no chest pain or sob, she has not been moving oob yet. no cough or sputum production. Objective as above. her physical exam revealed stable VS, difficult to monitor sat due digit clubbing and poor vascularization in the periphery. S1S2 RRR, lungs with bibasilar crackles. abdomen is benign, no edema, severe clubbing. neuro is non focal. psych with normal affect. Current SOFA Score SOFA Score Response (Comments) Value PaO2/FiO2 (mmHg) < 100 4 SaO2 / FIO2 < 67 4 Platelets (x10) > 150 0 Bilirubin (mg/dL) < 1.2 0 Pilar Coma Score 13 - 14 1 Level of Hypotension No Hypotension 0 Creatinine (mg/dL) < 1.2 0 Total 9 Assessment & Plan 1- COPD exacerbation with Gold IV, immobility. 2- ILD not IPF. no evidence on the repeat CT chest of HC or rugged pleura. etiology is undetermined ( HOME HEALTH SPEECH THERAPIST, HSP, Drug induced, environmental or undiagnosed sarcoidosis with presence LN in the mediastinum, cellular NSIP, doubt paraneoplastic, LIP or AIP). infectious process such as staph pneumonia can present the same way, the pt is not a candidate for bronch unless intubated which she and her are not willing to proceed with. 3- acute resp dailure due to the above, ALI/ARDS etiology UK but as above. 4- UTI. 5- possible HCAP. 6- spina bifida with dominant right lung, surgically corrected , no evidence of restrictive pattern on previous PFT's per notes, I did not see the report myself. 7- chronic hypoxic resp failure due to the above. 8- PH, not CHF, now on oral lasix. 9- resolved prerenal hyponatremia. Plan: 1- I will check serology to r/o rheum dis, RF and CCP were negative. I added WOODROW , JARROD, ANCA, DIRECTOR OF PERSONNEL and HSP panel. 2- obtain CRP and ESR. 3- continue Bipap alt with HFO2 day time and BIpap Nocturnally. 4- continue Vanco and Zosyn to complete a course of 10 days. 5- keep lasix at 40 mg po daily, watch Na. 6- oral intake, DVT prophylaxis, treatment of GERD. 7- DNI. 8- replete K. 9- flutter valve and IS, a must. 10- PT consult. 11- disposition plan to telemetry . 12- continue the high dose steroids, be careful with quick taper, all the above entities require 1 mg/kg dose for induction. discussed in details with the staff on rounds. CCT 35 min. Consults & Procedures Consultants: ccm. pulmonary. Procedures: none. Data Medications: Current Inpatient Medications Medications (Trade) Dose Ordered Sig/Bishnu Route Start Time Stop Time Status Last Admin Dose Admin Acetaminophen (Tylenol Tab) 650 mg Q4H PRN PO 05/23/17 17:45 06/22/17 17:44 06/08/17 19:13 650 MG Ondansetron HCl (Zofran Inj) 4 mg Q6H PRN IV 05/23/17 17:45 06/22/17 17:44 Polyethylene (Miralax Powder Packet) 17 gm DAILY PRN PO 05/23/17 17:45 06/22/17 17:44 Potassium Chloride (Klor-Con Tab) 20 meq BID PO 05/23/17 21:00 06/22/17 20:59 Future Hold 06/08/17 08:16 20 MEQ Aspirin (Ecotrin Tab) 81 mg DAILY PO 05/24/17 09:00 06/23/17 08:59 06/17/17 08:58 81 MG Calcium/Vitamin D (Caltrate Plus Tab) 1 tab BID PO 05/23/17 21:00 06/22/17 20:59 06/17/17 21:29 1 TAB Metoprolol Tartrate (Lopressor Tab) 25 mg BID PO 05/23/17 21:00 06/22/17 20:59 06/17/17 21:30 25 MG Nortriptyline HCl (Pamelor Cap) 25 mg QAM PO 05/24/17 09:00 06/23/17 08:59 06/17/17 08:58 25 MG Rosuvastatin Calcium (Crestor Tab) 20 mg QPM PO 05/23/17 21:00 06/22/17 20:59 06/17/17 21:30 20 MG Sodium Chloride ([place] Nasal [place]) 2 sprays BID NA 05/23/17 21:00 06/22/17 20:59 06/17/17 21:29 2 SPRAYS Sertraline HCl (Zoloft Tab) 100 mg HS PO 05/23/17 21:00 06/22/17 20:59 06/17/17 21:31 100 MG Miscellaneous Information (Order Awaiting Action) 1 ea QS N/A 05/24/17 00:00 06/23/17 00:00 Non-Formulary Medication (Non-Formulary Patient'S Own Med) 1 ea HS PO 05/24/17 21:00 06/23/17 20:59 06/17/17 21:30 1 EA Ipratropium [place] (Atrovent 0.02% 0.5MG/2.5ML Neb) 0.5 mg Q4R INH 06/06/17 05:00 06/22/17 04:59 06/18/17 06:51 0.5 MG Levalbuterol (Xopenex 1.25MG/ 0.5ML Neb) 1.25 mg Q4R INH 06/06/17 05:00 06/22/17 04:59 06/18/17 06:51 1.25 MG Methylprednisolone Sodium Succinate 125 mg/Syringe 2 ml @ 1.5 mls/min Q6 IV 06/17/17 00:00 07/16/17 19:59 06/18/17 06:58 1.5 MLS/MIN Heparin Sodium (Porcine) (Heparin Sq 5000 Unit/0.5ml) 5,000 unit Q12 SQ 06/16/17 21:00 07/16/17 20:59 06/17/17 21:32 5,000 UNIT Vancomycin HCl (Consult) 1 ea UD PRN N/A 06/16/17 20:00 07/16/17 19:59 Piperacillin Sod/ Tazobactam Sod (Consult) 1 ea UD PRN N/A 06/16/17 20:00 07/16/17 19:59 Vancomycin HCl 750 mg/Sodium Chloride 265 ml @ 125 mls/hr Q10H IV 06/17/17 06:00 06/23/17 05:59 06/18/17 02:26 125 MLS/HR Piperacillin Sod/ Tazobactam Sod 3.375 gm/Dextrose 115 ml @ 28.75 mls/ hr Q8H IV 06/17/17 02:00 06/23/17 01:59 06/18/17 02:29 28.75 MLS/HR Pantoprazole Sodium (Protonix Tab) 40 mg BID PO 06/17/17 21:00 07/17/17 20:59 06/17/17 21:31 40 MG Furosemide (Lasix Tab) 40 mg QAM PO 06/18/17 09:00 07/18/17 08:59 Bisacodyl (Dulcolax Supp) 10 mg DAILY PRN SC 06/17/17 10:00 07/17/17 09:59 06/17/17 11:41 10 MG Potassium Chloride (Klor-Con M10) 40 meq NOW STAT PO 06/18/17 09:41 06/18/17 09:42 UNV Vital Signs: Date Time Temp Pulse Resp B/P (MAP) Pulse Ox O2 Delivery O2 Flow Rate FiO2 06/18/17 06:57 86 28 92 BiPAP/CPAP 100 06/18/17 06:01 77 17 148/80 (102) 96 BiPAP 100 06/18/17 05:01 84 22 163/94 (117) 88 BiPAP 100 06/18/17 04:01 36.5 90 23 166/99 (121) 84 BiPAP 100 06/18/17 04:00 86 BiPAP 100 06/18/17 03:46 84 90 100 06/18/17 03:45 84 28 90 BiPAP/CPAP 100 06/18/17 03:01 82 23 147/71 (96) 85 BiPAP 100 06/18/17 02:01 75 19 153/84 (107) 91 BiPAP 100 06/18/17 01:01 80 17 138/89 (105) 89 BiPAP 100 06/18/17 00:01 88 BiPAP 100 06/18/17 00:01 36.4 85 22 150/78 (102) 91 100 06/17/17 23:33 86 24 86 BiPAP/CPAP 100 06/17/17 23:33 86 86 100 06/17/17 23:01 90 23 146/87 (106) 87 BiPAP 100 06/17/17 22:01 91 23 153/90 (111) 86 BiPAP 100 06/17/17 21:01 92 21 143/95 (111) 86 BiPAP 100 06/17/17 20:08 91 91 100 06/17/17 20:08 91 29 91 BiPAP/CPAP 100 06/17/17 20:01 36.5 91 23 146/91 (109) 84 BiPAP 100 06/17/17 20:00 88 BiPAP 100 06/17/17 19:01 95 29 148/92 (110) 89 BiPAP 100 06/17/17 18:00 36.2 101 29 148/80 (102) 94 BiPAP 100 06/17/17 17:38 105 91 100 06/17/17 16:00 89 BiPAP 100 06/17/17 16:00 36.2 88 25 159/95 (116) 89 BiPAP 100 06/17/17 14:40 91 91 100 06/17/17 14:39 91 34 91 BiPAP/CPAP 100 06/17/17 14:00 36.2 93 28 156/89 (111) 95 BiPAP 100 06/17/17 12:00 87 BiPAP 100 06/17/17 12:00 36.6 100 28 131/76 (94) 87 High Flow Oxygen 100 06/17/17 11:25 103 26 88 Nasal Cannula 55.0 95 06/17/17 10:00 36.5 105 31 133/89 (104) 89 High Flow Oxygen 100 Laboratory Results: Last 24 Hours Test 06/17/17 17:40 06/17/17 18:56 06/17/17 23:26 Bedside Glucose 175 mg/dl 164 mg/dl White Blood Count 18.93 K/uL Red Blood Count 3.34 M/uL Hemoglobin 10.0 g/dL Hematocrit 30.2 % Mean Corpuscular Volume 90.4 fL Mean Corpuscular Hemoglobin 29.9 pg Mean Corpuscular Hemoglobin Concent 33.1 g/dl Platelet Count 269 K/uL Mean Platelet Volume 9.3 fL Neutrophils (%) (Auto) 87.2 % Lymphocytes (%) (Auto) 6.6 % Monocytes (%) (Auto) 4.0 % Eosinophils (%) (Auto) 0.1 % Basophils (%) (Auto) 0.1 % Neutrophils # (Auto) 16.53 K/uL Lymphocytes # (Auto) 1.25 K/uL Monocytes # (Auto) 0.76 K/uL Eosinophils # (Auto) 0.01 K/uL Basophils # (Auto) 0.01 K/uL RDW Standard Deviation 56.8 fL RDW Coefficient of Variation 17.3 % Immature Granulocyte % (Auto) 2.0 % Immature Granulocyte # (Auto) 0.37 K/uL Nucleated RBC Absolute Count (auto) 0.06 K/uL Nucleated Red Blood Cells % 0.3 % Sodium Level 130 mmol/L Potassium Level 3.1 mmol/L Chloride Level 90 mmol/L Carbon Dioxide Level 31 mmol/L Anion Gap 9.0 mmol/L Blood Urea Nitrogen 18 mg/dl Creatinine 0.59 mg/dl Est Creatinine Clear Calc Drug Dose 88.8 ml/min Estimated GFR () 113.9 Estimated GFR (Non- 98.2 BUN/Creatinine Ratio 31.3 Random Glucose 162 mg/dl Calcium Level 8.8 mg/dl
[2017-06-18] MEDS ORDERED: POTASSIUM CHLORIDE 10 MEQ TABCR PO ONE (10:30)
[2017-06-18] MEDS: ACETAMINOPHEN 325 MG TAB PO PRN (10:46)
[2017-06-18] MEDS ORDERED: VANCOMYCIN TROUGH ONE (11:30)
--- NOTE | 2017-06-18 11:39 | Progress Note ---
Medicine Progress Note Date & Time of Visit: Jun 18, 2017 at 11:34. Subjective seen resting in bed, comfortable on high flow o2 states her breathing is ok, still has dry cough but improving denies chest pain, dizziness no abdominal pain, nausea no fever/chills denies other symptoms Objective Last 8 Hrs Date Time Temp Pulse Resp B/P (MAP) Pulse Ox O2 Delivery O2 Flow Rate FiO2 06/18/17 11:05 103 28 Nasal Cannula 55.0 95 06/18/17 10:00 96 19 161/96 (117) BiPAP 95 06/18/17 08:00 36.5 97 21 119/68 (85) 97 BiPAP 100 06/18/17 08:00 100 BiPAP 95 06/18/17 06:57 86 28 92 BiPAP/CPAP 100 06/18/17 06:01 77 17 148/80 (102) 96 BiPAP 100 06/18/17 05:01 84 22 163/94 (117) 88 BiPAP 100 06/18/17 04:01 36.5 90 23 166/99 (121) 84 BiPAP 100 06/18/17 04:00 86 BiPAP 100 06/18/17 03:46 84 90 100 06/18/17 03:45 84 28 90 BiPAP/CPAP 100 Physical Exam: General- oriented x 3, not in distress, speaks in sentences with no effort Eyes- anicteric Neck- no JVD Lungs- clear breath sounds bilaterally, no crackles, no wheezes Heart- normal rate, regular rhythm; no murmurs Abdomen- non distended,normal bowel sounds, soft, nontender Extremities- no pretibial edema, no calf tenderness Neuro- alert, oriented x 3; no gross deficits Skin- warm & dry Laboratory Results: Last 24 Hours Test 06/17/17 17:40 06/17/17 18:56 06/17/17 23:26 06/18/17 10:40 Bedside Glucose 175 mg/dl 164 mg/dl White Blood Count 18.93 K/uL Red Blood Count 3.34 M/uL Hemoglobin 10.0 g/dL Hematocrit 30.2 % Mean Corpuscular Volume 90.4 fL Mean Corpuscular Hemoglobin 29.9 pg Mean Corpuscular Hemoglobin Concent 33.1 g/dl Platelet Count 269 K/uL Mean Platelet Volume 9.3 fL Neutrophils (%) (Auto) 87.2 % Lymphocytes (%) (Auto) 6.6 % Monocytes (%) (Auto) 4.0 % Eosinophils (%) (Auto) 0.1 % Basophils (%) (Auto) 0.1 % Neutrophils # (Auto) 16.53 K/uL Lymphocytes # (Auto) 1.25 K/uL Monocytes # (Auto) 0.76 K/uL Eosinophils # (Auto) 0.01 K/uL Basophils # (Auto) 0.01 K/uL RDW Standard Deviation 56.8 fL RDW Coefficient of Variation 17.3 % Immature Granulocyte % (Auto) 2.0 % Immature Granulocyte # (Auto) 0.37 K/uL Nucleated RBC Absolute Count (auto) 0.06 K/uL Nucleated Red Blood Cells % 0.3 % Sodium Level 130 mmol/L Potassium Level 3.1 mmol/L Chloride Level 90 mmol/L Carbon Dioxide Level 31 mmol/L Anion Gap 9.0 mmol/L Blood Urea Nitrogen 18 mg/dl Creatinine 0.59 mg/dl Est Creatinine Clear Calc Drug Dose 88.8 ml/min Estimated GFR () 113.9 Estimated GFR (Non- 98.2 BUN/Creatinine Ratio 31.3 Random Glucose 162 mg/dl Calcium Level 8.8 mg/dl Test 06/18/17 11:30 Assessment & Plan This is a 61yo female with a PMH of chronic respiratory failure 2/2 COPD, pulmonary fibrosis (on home O2), R sided HF, HTN who presents in acute respiratory failure after home health nurse found her to be hypoxic at 57%.Was treated for health care pneumonia and finished course of abx,. Received Lasix for chf and on prednisone for ILD flare.P Acute on Chronic hypoxic respiratory failure secondary to: Acute COPD and ILD flare Possible Other Underlying Inflammatory Process -- was on Mucomyst, Nebs q4h Prednisone 40mg daily, slow taper -- 06/14 (+) increased cough, with mild tachypnea Lasix 20mg IV one dose improved clinically -- 06/16 (+) desaturation to low 70s, high 80s transferred to ICU - 06/17: oxygenation improving CT chest: IMPRESSION: Respiratory motion artifact. Advanced emphysema with diffuse interstitial thickening is again noted. There is been progression of the near diffuse groundglass airspace opacities. This could represent an atypical pneumonitis versus less likely superimposed pulmonary edema. - currently on Vanc + Zosyn day 3 Solumedrol 125mg q6h Nebs q4h Lasix daily alternating Bipap and high flow 02 -- continues to be stable will continue to monitor closely in Tele -- discussed case with Dr. Lew discussed care with patient at bedside and her at length on the phone , all questions answered, they are comfortable and agreeable with plan of care again expressed gratitude for the care Gram Negative Bacilli UTI -- urine culture: (+) proteus -- on Zosyn Diarrhea -- resolved -- Protonix IV Hyponatremia stable at 132 will continue to monitor while on Lasix Hyperkalemia potassium 5.2 K stable will monitor s/p Sepsis 2/2 PNA, UTI: one bottle micrococcus -contaminant? completed 10day abx course s/p Acute on chronic R-sided Heart Failure, Preserved Ef: secondary underlying pulmonary disease Echo (04/10) with preserved EF: 65-70% but elevated R ventricular systolic pressure initially was on iv Lasix 40mg bid then was on Lasix 80mg po daily f/u cxr- some what better -- 06/14 Lasix IV given diuresed well improved -- 06/16 (+) desaturation to low 70s, high 80s CXR, Lasix 40mg IV, nebs changed to high flow 02 -- management per #1 HTN: Stable on metoprolol Code staus level 3 - per discussion with patient and DVT PROPHYLAXIS Heparin DISPOSITION pending Continued [facility] stay due to: multiple IV medications needed, home environment unsafe for pt Discharge planning: [facility] facility Current Inpatient Medications: Current Inpatient Medications Medications (Trade) Dose Ordered Sig/Bishnu Route Start Time Stop Time Status Last Admin Dose Admin Acetaminophen (Tylenol Tab) 650 mg Q4H PRN PO 05/23/17 17:45 06/22/17 17:44 06/18/17 10:46 650 MG Ondansetron HCl (Zofran Inj) 4 mg Q6H PRN IV 05/23/17 17:45 06/22/17 17:44 Polyethylene (Miralax Powder Packet) 17 gm DAILY PRN PO 05/23/17 17:45 06/22/17 17:44 Potassium Chloride (Klor-Con Tab) 20 meq BID PO 05/23/17 21:00 06/22/17 20:59 Future Hold 06/08/17 08:16 20 MEQ Aspirin (Ecotrin Tab) 81 mg DAILY PO 05/24/17 09:00 06/23/17 08:59 06/18/17 09:39 81 MG Calcium/Vitamin D (Caltrate Plus Tab) 1 tab BID PO 05/23/17 21:00 06/22/17 20:59 06/18/17 09:39 1 TAB Metoprolol Tartrate (Lopressor Tab) 25 mg BID PO 05/23/17 21:00 06/22/17 20:59 06/18/17 09:38 25 MG Nortriptyline HCl (Pamelor Cap) 25 mg QAM PO 05/24/17 09:00 06/23/17 08:59 06/18/17 09:38 25 MG Rosuvastatin Calcium (Crestor Tab) 20 mg QPM PO 05/23/17 21:00 06/22/17 20:59 06/17/17 21:30 20 MG Sodium Chloride ([place] Nasal [place]) 2 sprays BID NA 05/23/17 21:00 06/22/17 20:59 06/18/17 09:38 2 SPRAYS Sertraline HCl (Zoloft Tab) 100 mg HS PO 05/23/17 21:00 06/22/17 20:59 06/17/17 21:31 100 MG Miscellaneous Information (Order Awaiting Action) 1 ea QS N/A 05/24/17 00:00 06/23/17 00:00 Non-Formulary Medication (Non-Formulary Patient'S Own Med) 1 ea HS PO 05/24/17 21:00 06/23/17 20:59 06/17/17 21:30 1 EA Ipratropium [place] (Atrovent 0.02% 0.5MG/2.5ML Neb) 0.5 mg Q4R INH 06/06/17 05:00 06/22/17 04:59 06/18/17 11:05 0.5 MG Levalbuterol (Xopenex 1.25MG/ 0.5ML Neb) 1.25 mg Q4R INH 06/06/17 05:00 06/22/17 04:59 06/18/17 11:05 1.25 MG Methylprednisolone Sodium Succinate 125 mg/Syringe 2 ml @ 1.5 mls/min Q6 IV 06/17/17 00:00 10/22/17 19:59 06/18/17 06:58 1.5 MLS/MIN Heparin Sodium (Porcine) (Heparin Sq 5000 Unit/0.5ml) 5,000 unit Q12 SQ 06/16/17 21:00 07/16/17 20:59 06/18/17 09:39 5,000 UNIT Vancomycin HCl (Consult) 1 ea UD PRN N/A 06/16/17 20:00 07/16/17 19:59 Piperacillin Sod/ Tazobactam Sod (Consult) 1 ea UD PRN N/A 06/16/17 20:00 07/16/17 19:59 Vancomycin HCl 750 mg/Sodium Chloride 265 ml @ 125 mls/hr Q10H IV 06/17/17 06:00 06/23/17 05:59 06/18/17 02:26 125 MLS/HR Piperacillin Sod/ Tazobactam Sod 3.375 gm/Dextrose 115 ml @ 28.75 mls/ hr Q8H IV 06/17/17 02:00 06/23/17 01:59 06/18/17 10:29 28.75 MLS/HR Pantoprazole Sodium (Protonix Tab) 40 mg BID PO 06/17/17 21:00 07/17/17 20:59 06/18/17 09:39 40 MG Furosemide (Lasix Tab) 40 mg QAM PO 06/18/17 09:00 07/18/17 08:59 06/18/17 09:38 40 MG Bisacodyl (Dulcolax Supp) 10 mg DAILY PRN AL 06/17/17 10:00 07/17/17 09:59 06/17/17 11:41 10 MG
[2017-06-18] MEDS: ONDANSETRON INJ 2 MG/ML 2 ML VIAL IV PRN (12:20)
[2017-06-18 12:23] LABS: BASO % 0.1 %; BASO ABS # 0.01 K/uL (0-0.2); COMPLETE YES; EOS % 0.1 %; HEMATOCRIT 31.7 % (37-47); IG% 1.4 %; LYMPH % 6.4 %; LYMPH ABS # 1.13 K/uL (1.2-3.4); MEAN CELL VOLUME 91.4 fL (80-100); MEAN CORPUSCULAR HEMOGLOBIN 29.1 pg (25-34); MEAN CORPUSCULAR HGB CONC 31.9 g/dl (32-36); MEAN PLATELET VOLUME 9.6 fL (7.4-10.4); MONO % 2.9 %; NEUT % 89.1 %; PLATELET COUNT 293 K/uL (130-400); RED BLOOD COUNT 3.47 M/uL (4.2-5.4); WHITE BLOOD COUNT 17.68 K/uL (4.8-10.8)
[2017-06-18 12:41] LABS: BUN/CREATININE RATIO 24.7 (10-20); CALCIUM 8.8 mg/dl (8.5-10.1); CREATININE 0.74 mg/dl (0.60-1.20); POTASSIUM 3.3 mmol/L (3.5-5.1)
--- NOTE | 2017-06-18 16:35 | Pharmacy Progress Note ---
Pharmacy Antibiotic Prog Note Date of Service Jun 18, 2017. Subjective The patient is currently receiving vancomycin 750 mg iv q 10 hrs and zosyn 3.375 gm iv q 8 hrs Objective Height (Feet): 5 Height (Inches): 3.00 Weight (Kilograms): 63.700 Lab Results (24hrs): Test 06/17/17 17:40 06/17/17 18:56 06/17/17 23:26 06/18/17 12:01 Bedside Glucose 175 mg/dl (70-90) 164 mg/dl (70-90) White Blood Count 18.93 K/uL (4.8-10.8) 17.68 K/uL (4.8-10.8) Red Blood Count 3.34 M/uL (4.2-5.4) 3.47 M/uL (4.2-5.4) Hemoglobin 10.0 g/dL (12.0-16.0) 10.1 g/dL (12.0-16.0) Hematocrit 30.2 % (37-47) 31.7 % (37-47) Mean Corpuscular Volume 90.4 fL (80-100) 91.4 fL (80-100) Mean Corpuscular Hemoglobin 29.9 pg (25-34) 29.1 pg (25-34) Mean Corpuscular Hemoglobin Concent 33.1 g/dl (32-36) 31.9 g/dl (32-36) Platelet Count 269 K/uL (130-400) 293 K/uL (130-400) Mean Platelet Volume 9.3 fL (7.4-10.4) 9.6 fL (7.4-10.4) Neutrophils (%) (Auto) 87.2 % 89.1 % Lymphocytes (%) (Auto) 6.6 % 6.4 % Monocytes (%) (Auto) 4.0 % 2.9 % Eosinophils (%) (Auto) 0.1 % 0.1 % Basophils (%) (Auto) 0.1 % 0.1 % Neutrophils # (Auto) 16.53 K/uL (1.4-6.5) 15.76 K/uL (1.4-6.5) Lymphocytes # (Auto) 1.25 K/uL (1.2-3.4) 1.13 K/uL (1.2-3.4) Monocytes # (Auto) 0.76 K/uL (0.11-0.59) 0.52 K/uL (0.11-0.59) Eosinophils # (Auto) 0.01 K/uL (0-0.5) 0.01 K/uL (0-0.5) Basophils # (Auto) 0.01 K/uL (0-0.2) 0.01 K/uL (0-0.2) RDW Standard Deviation 56.8 fL (36.4-46.3) 56.8 fL (36.4-46.3) RDW Coefficient of Variation 17.3 % (11.5-14.5) 17.4 % (11.5-14.5) Immature Granulocyte % (Auto) 2.0 % 1.4 % Immature Granulocyte # (Auto) 0.37 K/uL (0.00-0.02) 0.25 K/uL (0.00-0.02) Nucleated RBC Absolute Count (auto) 0.06 K/uL (0-0) 0.04 K/uL (0-0) Nucleated Red Blood Cells % 0.3 % 0.2 % Sodium Level 130 mmol/L (136-145) 131 mmol/L (136-145) Potassium Level 3.1 mmol/L (3.5-5.1) 3.3 mmol/L (3.5-5.1) Chloride Level 90 mmol/L (98-107) 91 mmol/L (98-107) Carbon Dioxide Level 31 mmol/L (21-32) 30 mmol/L (21-32) Anion Gap 9.0 mmol/L (3-11) 10.0 mmol/L (3-11) Blood Urea Nitrogen 18 mg/dl (7-18) 18 mg/dl (7-18) Creatinine 0.59 mg/dl (0.60-1.20) 0.74 mg/dl (0.60-1.20) Est Creatinine Clear Calc Drug Dose 88.8 ml/min 70.8 ml/min Estimated GFR () 113.9 100.6 Estimated GFR (Non- 98.2 86.8 BUN/Creatinine Ratio 31.3 (10-20) 24.7 (10-20) Random Glucose 162 mg/dl (70-99) 172 mg/dl (70-99) Calcium Level 8.8 mg/dl (8.5-10.1) 8.8 mg/dl (8.5-10.1) Vancomycin Level Trough 11.6 mcg/ml (SEE COMMENT) Assessment & Plan Vancomycin: * Trough level this am came back subtherapeutic at ~11 mcg/ml (goal 15-20 mcg/ ml for PNA/UTI) * Will increase dose to 1000 mg iv q 10 hrs to achieve a higher trough * Will monitor renal fxn and check further levels as needed Zosyn: * 3.375 gm iv q 8 hrs; no change Pharmacy will continue to follow and will adjust dose/frequency as necessary. Thank you
[2017-06-18] MEDS: ROSUVASTATIN CALCIUM 20 MG TAB PO SCH (20:12)
[2017-06-18] MEDS: SERTRALINE HCL 50 MG TAB PO SCH (20:12)
[2017-06-18] MEDS: [UNRECOGNIZED DRUG - OTHER] PO SCH (20:12)
[2017-06-18] MEDS: VANCOMYCIN INJ 1,000 MG in SODIUM CHLORIDE 0.9% 250ML 250 ML IV SCH (20:22)
[2017-06-19] VITALS (18 sets, daily range): BP systolic 128–171; BP diastolic 79–91; PULSE 89–113; TEMP 36–36.8; O2SAT 85–95
[2017-06-19] MEDS: PIPERACILL/TAZOBAC IV 3.375 GM in DEXTROSE 5% 100ML IV SCH ×3 (02:07→18:11)
[2017-06-19] MEDS: IPRATROPIUM BROMIDE NEB SOLN 0.02% 2.5 ML VIAL INH SCH ×6 (03:59→23:10)
[2017-06-19] MEDS: LEVALBUTEROL 1.25MG/0.5ML NEB INH SCH ×6 (04:00→23:10)
[2017-06-19] MEDS: VANCOMYCIN INJ 1,000 MG in SODIUM CHLORIDE 0.9% 250ML 250 ML IV SCH ×2 (06:13→16:20)
[2017-06-19] MEDS: METHYLPREDNISOLONE IV 125 MG in SYRINGE 0 ML IV SCH ×4 (06:13→23:29)
[2017-06-19 07:20] LABS: BASO % 0.1 %; BASO ABS # 0.02 K/uL (0-0.2); COMPLETE YES; EOS % 0.1 %; HEMATOCRIT 31.6 % (37-47); IG% 2.9 %; LYMPH % 8.4 %; LYMPH ABS # 1.62 K/uL (1.2-3.4); MEAN CELL VOLUME 92.1 fL (80-100); MEAN CORPUSCULAR HEMOGLOBIN 29.4 pg (25-34); MEAN PLATELET VOLUME 9.6 fL (7.4-10.4); MONO % 6.4 %; NEUT % 82.1 %; PLATELET COUNT 269 K/uL (130-400); RED BLOOD COUNT 3.43 M/uL (4.2-5.4); WHITE BLOOD COUNT 19.34 K/uL (4.8-10.8)
--- NOTE | 2017-06-19 07:21 | Nephrology Progress Note ---
Nephrology Progress Note Date of Service: Jun 19, 2017. Subjective 61 yo female with hypoxia requiring high flow oxygen. pt is comfortable. complaining of diarrhea. able to eat ok. pt feels here breathing is improving. requiring bipap face mask this morning. Objective Date Time Temp Pulse Resp B/P (MAP) Pulse Ox O2 Delivery O2 Flow Rate FiO2 06/19/17 07:05 89 94 06/19/17 07:04 89 25 94 BiPAP/CPAP 100 06/19/17 04:00 99 20 Nasal Cannula 55.0 100 06/19/17 04:00 BiPAP 100 06/19/17 03:48 36.5 95 26 153/88 (109) BiPAP 06/19/17 02:27 92 100 06/19/17 00:00 BiPAP 100 06/18/17 23:25 86 22 Nasal Cannula 55.0 100 06/18/17 23:10 36.4 88 24 142/89 (106) 06/18/17 20:00 High Flow Oxygen 55.0 06/18/17 19:45 36.5 94 20 135/85 (102) 06/18/17 19:22 90 100 06/18/17 19:18 92 27 BiPAP/CPAP 55.0 100 06/18/17 18:00 105 82 100 06/18/17 16:00 High Flow Oxygen 55.0 06/18/17 15:44 36.8 103 22 154/91 (112) 06/18/17 15:35 104 100 06/18/17 14:35 77 24 Nasal Cannula 55.0 95 06/18/17 12:00 100 High Flow Oxygen 95 06/18/17 11:05 103 28 Nasal Cannula 55.0 95 06/18/17 10:00 96 19 161/96 (117) BiPAP 95 06/18/17 08:00 36.5 97 21 119/68 (85) 97 BiPAP 100 06/18/17 08:00 100 BiPAP 95 Physical Exam: General-aaox3 Eyes-no scleral icterus ENT-mmm Neck-supple Lungs-cta Heart-rrr Abdomen-bs+ s/nt/nd Extremities-no c/c/e Neuro-nonfocal Current Inpatient Medications Medications (Trade) Dose Ordered Sig/Bishnu Route Start Time Stop Time Status Last Admin Dose Admin Acetaminophen (Tylenol Tab) 650 mg Q4H PRN PO 05/23/17 17:45 06/22/17 17:44 06/18/17 10:46 650 MG Ondansetron HCl (Zofran Inj) 4 mg Q6H PRN IV 05/23/17 17:45 06/22/17 17:44 06/18/17 12:20 4 MG Polyethylene (Miralax Powder Packet) 17 gm DAILY PRN PO 05/23/17 17:45 06/22/17 17:44 Potassium Chloride (Klor-Con Tab) 20 meq BID PO 05/23/17 21:00 06/22/17 20:59 Future Hold 06/08/17 08:16 20 MEQ Aspirin (Ecotrin Tab) 81 mg DAILY PO 05/24/17 09:00 06/23/17 08:59 06/18/17 09:39 81 MG Calcium/Vitamin D (Caltrate Plus Tab) 1 tab BID PO 05/23/17 21:00 06/22/17 20:59 06/18/17 20:11 1 TAB Metoprolol Tartrate (Lopressor Tab) 25 mg BID PO 05/23/17 21:00 06/22/17 20:59 06/18/17 20:12 25 MG Nortriptyline HCl (Pamelor Cap) 25 mg QAM PO 05/24/17 09:00 06/23/17 08:59 06/18/17 09:38 25 MG Rosuvastatin Calcium (Crestor Tab) 20 mg QPM PO 05/23/17 21:00 06/22/17 20:59 06/18/17 20:12 20 MG Sodium Chloride ([place] Nasal [place]) 2 sprays BID NA 05/23/17 21:00 06/22/17 20:59 06/18/17 20:12 2 SPRAYS Sertraline HCl (Zoloft Tab) 100 mg HS PO 05/23/17 21:00 06/22/17 20:59 06/18/17 20:12 100 MG Miscellaneous Information (Order Awaiting Action) 1 ea QS N/A 05/24/17 00:00 06/23/17 00:00 Non-Formulary Medication (Non-Formulary Patient'S Own Med) 1 ea HS PO 05/24/17 21:00 06/23/17 20:59 06/18/17 20:12 1 EA Ipratropium [place] (Atrovent 0.02% 0.5MG/2.5ML Neb) 0.5 mg Q4R INH 06/06/17 05:00 06/22/17 04:59 06/19/17 07:02 0.5 MG Levalbuterol (Xopenex 1.25MG/ 0.5ML Neb) 1.25 mg Q4R INH 06/06/17 05:00 06/22/17 04:59 06/19/17 07:02 1.25 MG Methylprednisolone Sodium Succinate 125 mg/Syringe 2 ml @ 1.5 mls/min Q6 IV 06/17/17 00:00 07/16/17 19:59 06/19/17 06:13 1.5 MLS/MIN Heparin Sodium (Porcine) (Heparin Sq 5000 Unit/0.5ml) 5,000 unit Q12 SQ 06/16/17 21:00 07/16/17 20:59 06/18/17 20:13 5,000 UNIT Vancomycin HCl (Consult) 1 ea UD PRN N/A 06/16/17 20:00 07/16/17 19:59 Piperacillin Sod/ Tazobactam Sod (Consult) 1 ea UD PRN N/A 06/16/17 20:00 07/16/17 19:59 Piperacillin Sod/ Tazobactam Sod 3.375 gm/Dextrose 115 ml @ 28.75 mls/ hr Q8H IV 06/17/17 02:00 06/23/17 01:59 06/19/17 02:07 28.75 MLS/HR Pantoprazole Sodium (Protonix Tab) 40 mg BID PO 06/17/17 21:00 07/17/17 20:59 06/18/17 20:12 40 MG Furosemide (Lasix Tab) 40 mg QAM PO 06/18/17 09:00 07/18/17 08:59 06/18/17 09:38 40 MG Bisacodyl (Dulcolax Supp) 10 mg DAILY PRN [place] 06/17/17 10:00 07/17/17 09:59 06/17/17 11:41 10 MG Vancomycin HCl 1000 mg/Sodium Chloride 270 ml @ 125 mls/hr Q10H IV 06/18/17 20:00 06/23/17 19:59 06/19/17 06:13 125 MLS/HR Last 24 Hours Test 06/18/17 12:01 06/19/17 06:35 White Blood Count 17.68 K/uL Red Blood Count 3.47 M/uL Hemoglobin 10.1 g/dL Hematocrit 31.7 % Mean Corpuscular Volume 91.4 fL Mean Corpuscular Hemoglobin 29.1 pg Mean Corpuscular Hemoglobin Concent 31.9 g/dl Platelet Count 293 K/uL Mean Platelet Volume 9.6 fL Neutrophils (%) (Auto) 89.1 % Lymphocytes (%) (Auto) 6.4 % Monocytes (%) (Auto) 2.9 % Eosinophils (%) (Auto) 0.1 % Basophils (%) (Auto) 0.1 % Neutrophils # (Auto) 15.76 K/uL Lymphocytes # (Auto) 1.13 K/uL Monocytes # (Auto) 0.52 K/uL Eosinophils # (Auto) 0.01 K/uL Basophils # (Auto) 0.01 K/uL RDW Standard Deviation 56.8 fL RDW Coefficient of Variation 17.4 % Immature Granulocyte % (Auto) 1.4 % Immature Granulocyte # (Auto) 0.25 K/uL Nucleated RBC Absolute Count (auto) 0.04 K/uL Nucleated Red Blood Cells % 0.2 % Sodium Level 131 mmol/L Potassium Level 3.3 mmol/L Chloride Level 91 mmol/L Carbon Dioxide Level 30 mmol/L Anion Gap 10.0 mmol/L Blood Urea Nitrogen 18 mg/dl Creatinine 0.74 mg/dl Est Creatinine Clear Calc Drug Dose 70.8 ml/min Estimated GFR () 100.6 Estimated GFR (Non- 86.8 BUN/Creatinine Ratio 24.7 Random Glucose 172 mg/dl Calcium Level 8.8 mg/dl Vancomycin Level Trough 11.6 mcg/ml Date/Time Source Procedure Growth Status 06/19/17 05:20 Stool C.difficile Toxin B Gene (PCR) - Final No C. difficile toxin B gene detected Complete Assessment & Plan hyponatremia-sodium was 134 on admission and trended down to 121 and now 131 and stable on lasix 40mg a day. urine osm was in the 600s with urine sodium of 6 to 14 and sodium responded favorably to holding lasix and giving intermittent small fluid boluses. 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 however, pulmonary status worsened off the diuretics. given her profound ILD requiring chronic oxygen, medically necessary to continue diuretics. sodium levels are remaining stable in the 130s. pt is comfortable. greatly appreciate pulmonary and primary hospitalist help. no changes from renal perspective.
[2017-06-19 07:45] LABS: BUN/CREATININE RATIO 29.3 (10-20); CREATININE 0.71 mg/dl (0.60-1.20); POTASSIUM 3.4 mmol/L (3.5-5.1)
[2017-06-19 07:46] LABS: C-REACTIVE PROTEIN 2.78 mg/dl (0-0.29)
[2017-06-19] MEDS: SODIUM CHLORIDE 0.65% NA SOLN 45 ML (OCEAN) SCH ×2 (08:01→20:25)
[2017-06-19] MEDS: ASPIRIN 81 MG ECTAB PO SCH (08:02)
[2017-06-19] MEDS: FUROSEMIDE 40 MG TAB PO SCH (08:02)
[2017-06-19] MEDS: NORTRIPTYLINE HCL 25 MG CAP PO SCH (08:02)
[2017-06-19] MEDS: CALCIUM 600MG + VIT D 400 IU TAB PO SCH ×2 (08:02→20:25)
[2017-06-19] MEDS: METOPROLOL TARTRATE 25 MG TAB PO SCH ×2 (08:02→20:26)
[2017-06-19] MEDS: PANTOprazole SOD 40 MG TAB PO SCH ×2 (08:03→20:27)
[2017-06-19] MEDS: HEPARIN SOD 5000 UNIT/0.5 ML CARP SQ SCH ×2 (08:05→20:28)
[2017-06-19] MEDS ORDERED: LEVALBUTEROL/IPRATROPIUM NEB INH PRN (10:15)
[2017-06-19] MEDS ORDERED: LEVALBUTEROL/IPRATROPIUM NEB INH ONE (10:15)
[2017-06-19] MEDS ORDERED: LEVALBUTEROL 1.25MG/0.5ML NEB INH STA (10:19)
[2017-06-19] MEDS ORDERED: IPRATROPIUM BROMIDE NEB SOLN 0.02% 2.5 ML VIAL INH STA (10:19)
--- NOTE | 2017-06-19 10:25 | Progress Note ---
Medicine Progress Note Date & Time of Visit: Jun 19, 2017 at 10:18. Subjective notified by RN that patient was reporting shortness of breath with high flow 02 patient was noted to be tachypneic with low o2 sats, then placed on Bipap, with much improvement on my exam, patient was comfortable, resting in bed, no signs of distress, seems to be at her baseline (same as when i saw her yesterday) states her breathing is much better after being placed on the bipap no chest pain, abdominal pain, palpitations, nausea no other symptoms Objective Last 8 Hrs Date Time Temp Pulse Resp B/P (MAP) Pulse Ox O2 Delivery O2 Flow Rate FiO2 06/19/17 07:22 36.6 91 24 171/88 (115) 85 BiPAP 06/19/17 07:05 89 94 06/19/17 07:04 89 25 94 BiPAP/CPAP 100 06/19/17 04:00 99 20 Nasal Cannula 55.0 100 06/19/17 04:00 BiPAP 100 06/19/17 03:48 36.5 95 26 153/88 (109) BiPAP 06/19/17 02:27 92 100 Physical Exam: General- oriented x 3, not in distress, speaks in sentences with no effort Neck- no JVD Lungs- clear breath sounds bilaterally, no rales/wheezes Heart- HR 102, regular rhythm; no murmurs Abdomen- non distended,normal bowel sounds, soft, nontender Extremities- no pretibial edema, no calf tenderness Neuro- alert, oriented x 3; no gross deficits Skin- warm & dry Laboratory Results: Last 24 Hours Test 06/18/17 12:01 06/19/17 06:35 White Blood Count 17.68 K/uL 19.34 K/uL Red Blood Count 3.47 M/uL 3.43 M/uL Hemoglobin 10.1 g/dL 10.1 g/dL Hematocrit 31.7 % 31.6 % Mean Corpuscular Volume 91.4 fL 92.1 fL Mean Corpuscular Hemoglobin 29.1 pg 29.4 pg Mean Corpuscular Hemoglobin Concent 31.9 g/dl 32.0 g/dl Platelet Count 293 K/uL 269 K/uL Mean Platelet Volume 9.6 fL 9.6 fL Neutrophils (%) (Auto) 89.1 % 82.1 % Lymphocytes (%) (Auto) 6.4 % 8.4 % Monocytes (%) (Auto) 2.9 % 6.4 % Eosinophils (%) (Auto) 0.1 % 0.1 % Basophils (%) (Auto) 0.1 % 0.1 % Neutrophils # (Auto) 15.76 K/uL 15.89 K/uL Lymphocytes # (Auto) 1.13 K/uL 1.62 K/uL Monocytes # (Auto) 0.52 K/uL 1.23 K/uL Eosinophils # (Auto) 0.01 K/uL 0.01 K/uL Basophils # (Auto) 0.01 K/uL 0.02 K/uL RDW Standard Deviation 56.8 fL 58.7 fL RDW Coefficient of Variation 17.4 % 17.6 % Immature Granulocyte % (Auto) 1.4 % 2.9 % Immature Granulocyte # (Auto) 0.25 K/uL 0.57 K/uL Nucleated RBC Absolute Count (auto) 0.04 K/uL Nucleated Red Blood Cells % 0.2 % Sodium Level 131 mmol/L 134 mmol/L Potassium Level 3.3 mmol/L 3.4 mmol/L Chloride Level 91 mmol/L 93 mmol/L Carbon Dioxide Level 30 mmol/L 35 mmol/L Anion Gap 10.0 mmol/L 6.0 mmol/L Blood Urea Nitrogen 18 mg/dl 21 mg/dl Creatinine 0.74 mg/dl 0.71 mg/dl Est Creatinine Clear Calc Drug Dose 70.8 ml/min 73.8 ml/min Estimated GFR () 100.6 105.8 Estimated GFR (Non- 86.8 91.3 BUN/Creatinine Ratio 24.7 29.3 Random Glucose 172 mg/dl 113 mg/dl Calcium Level 8.8 mg/dl 9.0 mg/dl Vancomycin Level Trough 11.6 mcg/ml Erythrocyte Sedimentation Rate 41 mm/hr C-Reactive Protein 2.78 mg/dl Date/Time Source Procedure Growth Status 06/19/17 06:30 Nasal MRSA DNA Surveillance Screen Pending Received 06/19/17 05:20 Stool C.difficile Toxin B Gene (PCR) - Final No C. difficile toxin B gene detected Complete Assessment & Plan This is a 61yo female with a PMH of chronic respiratory failure 2/2 COPD, pulmonary fibrosis (on home O2), R sided HF, HTN who presents in acute respiratory failure after home health nurse found her to be hypoxic at 57%.Was treated for health care pneumonia and finished course of abx,. Received Lasix for chf and on prednisone for ILD flare.P Acute on Chronic hypoxic respiratory failure secondary to: Acute COPD and ILD flare Possible Other Underlying Inflammatory Process -- was on Mucomyst, Nebs q4h Prednisone 40mg daily, slow taper -- 06/14 (+) increased cough, with mild tachypnea Lasix 20mg IV one dose improved clinically -- 06/16 (+) desaturation to low 70s, high 80s transferred to ICU - 06/17: oxygenation improving CT chest: IMPRESSION: Respiratory motion artifact. Advanced emphysema with diffuse interstitial thickening is again noted. There is been progression of the near diffuse groundglass airspace opacities. This could represent an atypical pneumonitis versus less likely superimposed pulmonary edema. - continue on Vanc + Zosyn day 4 Solumedrol 125mg q6h Nebs q4h Lasix daily alternating Bipap and high flow 02 repeat CXR ordered today stat Nebs ordered, ,may need additional lasix discussed case with Pulm SVC- Dr. De La Paz, requested to re-evaluated patient -- discussed plan of care with patient and she is understanding /comfortable with plan of care Proteus UTI -- urine culture: (+) proteus -- on Zosyn Diarrhea -- resolved -- Protonix IV Hyponatremia stable at 133 will continue to monitor while on Lasix Hypokalemia replace with PO K monitor s/p Sepsis 2/2 PNA, UTI: one bottle micrococcus completed 10day abx course s/p Acute on chronic R-sided Heart Failure, Preserved Ef: secondary underlying pulmonary disease Echo (04/10) with preserved EF: 65-70% but elevated R ventricular systolic pressure initially was on iv Lasix 40mg bid then was on Lasix 80mg po daily f/u cxr- some what better -- 06/14 Lasix IV given diuresed well improved -- 06/16 (+) desaturation to low 70s, high 80s CXR, Lasix 40mg IV, nebs changed to high flow 02 -- management per #1 HTN: Stable on metoprolol Code staus level 3 - per discussion with patient and DVT PROPHYLAXIS Heparin DISPOSITION pending Continued [facility] stay due to: multiple IV medications needed, home environment unsafe for pt Discharge planning: residential facility Current Inpatient Medications: Current Inpatient Medications Medications (Trade) Dose Ordered Sig/Bishnu Route Start Time Stop Time Status Last Admin Dose Admin Acetaminophen (Tylenol Tab) 650 mg Q4H PRN PO 05/23/17 17:45 06/22/17 17:44 06/18/17 10:46 650 MG Ondansetron HCl (Zofran Inj) 4 mg Q6H PRN IV 05/23/17 17:45 06/22/17 17:44 06/18/17 12:20 4 MG Polyethylene (Miralax Powder Packet) 17 gm DAILY PRN PO 05/23/17 17:45 06/22/17 17:44 Potassium Chloride (Klor-Con Tab) 20 meq BID PO 05/23/17 21:00 06/22/17 20:59 Future Hold 06/08/17 08:16 20 MEQ Aspirin (Ecotrin Tab) 81 mg DAILY PO 05/24/17 09:00 06/23/17 08:59 06/19/17 08:02 81 MG Calcium/Vitamin D (Caltrate Plus Tab) 1 tab BID PO 05/23/17 21:00 06/22/17 20:59 06/19/17 08:02 1 TAB Metoprolol Tartrate (Lopressor Tab) 25 mg BID PO 05/23/17 21:00 06/22/17 20:59 06/19/17 08:02 25 MG Nortriptyline HCl (Pamelor Cap) 25 mg QAM PO 05/24/17 09:00 06/23/17 08:59 06/19/17 08:02 25 MG Rosuvastatin Calcium (Crestor Tab) 20 mg QPM PO 05/23/17 21:00 06/22/17 20:59 06/18/17 20:12 20 MG Sodium Chloride ([place] Nasal [place]) 2 sprays BID NA 05/23/17 21:00 06/22/17 20:59 06/19/17 08:01 2 SPRAYS Sertraline HCl (Zoloft Tab) 100 mg HS PO 05/23/17 21:00 06/22/17 20:59 06/18/17 20:12 100 MG Miscellaneous Information (Order Awaiting Action) 1 ea QS N/A 05/24/17 00:00 06/23/17 00:00 Non-Formulary Medication (Non-Formulary Patient'S Own Med) 1 ea HS PO 05/24/17 21:00 06/23/17 20:59 06/18/17 20:12 1 EA Ipratropium [place] (Atrovent 0.02% 0.5MG/2.5ML Neb) 0.5 mg Q4R INH 06/06/17 05:00 06/22/17 04:59 06/19/17 07:02 0.5 MG Levalbuterol (Xopenex 1.25MG/ 0.5ML Neb) 1.25 mg Q4R INH 06/06/17 05:00 06/22/17 04:59 06/19/17 07:02 1.25 MG Methylprednisolone Sodium Succinate 125 mg/Syringe 2 ml @ 1.5 mls/min Q6 IV 06/17/17 00:00 07/16/17 19:59 06/19/17 06:13 1.5 MLS/MIN Heparin Sodium (Porcine) (Heparin Sq 5000 Unit/0.5ml) 5,000 unit Q12 SQ 06/16/17 21:00 07/16/17 20:59 06/19/17 08:05 5,000 UNIT Vancomycin HCl (Consult) 1 ea UD PRN N/A 06/16/17 20:00 07/16/17 19:59 Piperacillin Sod/ Tazobactam Sod (Consult) 1 ea UD PRN N/A 06/16/17 20:00 07/16/17 19:59 Piperacillin Sod/ Tazobactam Sod 3.375 gm/Dextrose 115 ml @ 28.75 mls/ hr Q8H IV 06/17/17 02:00 06/23/17 01:59 06/19/17 09:05 28.75 MLS/HR Pantoprazole Sodium (Protonix Tab) 40 mg BID PO 06/17/17 21:00 07/17/17 20:59 06/19/17 08:03 40 MG Furosemide (Lasix Tab) 40 mg QAM PO 06/18/17 09:00 07/18/17 08:59 06/19/17 08:02 40 MG Bisacodyl (Dulcolax Supp) 10 mg DAILY PRN [place] 06/17/17 10:00 07/17/17 09:59 06/17/17 11:41 10 MG Vancomycin HCl 1000 mg/Sodium Chloride 270 ml @ 125 mls/hr Q10H IV 06/18/17 20:00 06/23/17 19:59 06/19/17 06:13 125 MLS/HR Miscellaneous (Xopenex/ Atrovent Neb) 1 ea Q2H PRN INH 06/19/17 10:15 07/19/17 10:14 UNV Miscellaneous (Xopenex/ Atrovent Neb) 1 ea NOW ONCE INH 06/19/17 10:15 06/19/17 10:16 UNV
--- NOTE | 2017-06-19 10:28 | DIAGNOSTIC IMAGING REPORT ---
CHEST ONE VIEW PORTABLE HISTORY: follow up copd, pneumonitis COMPARISON: Chest CT 06/17/2017. FINDINGS: Slight improvement in the diffuse interstitial thickening and hazy airspace opacities. The heart is stable in size. Low lung volumes. No pneumothorax. No pleural effusions. IMPRESSION: Improvement in the bilateral airspace opacities. Electronically signed by: Mayo Sebastian M.D. 06/19/2017 10:27 AM Dictated Date/Time: 06/19/2017 10:26 AM
[2017-06-19] MEDS ORDERED: LEVALBUTEROL 1.25MG/0.5ML NEB INH PRN (10:30)
[2017-06-19] MEDS ORDERED: IPRATROPIUM BROMIDE NEB SOLN 0.02% 2.5 ML VIAL INH PRN (10:30)
[2017-06-19] MEDS ORDERED: POTASSIUM CHLORIDE 10 MEQ TABCR PO ONE (11:15)
--- NOTE | 2017-06-19 12:38 | Pulmonology Progress Note ---
Pulmonary Progress Note Date of Service Jun 19, 2017. Attending Dr. De La Paz Subjective Patient seen and examined. She's states that she had a bad night. She describes increasing shortness of breath on high flow nasal cannula which which switched over to BiPAP. She denies any chest pain or cough. She states that she prefers-nasal cannula but currently the BiPAP is assisting with her work of breathing. She is also complaining of diarrhea, but denies any abdominal pain, nausea or vomiting. Objective VS reviewed. MAXIMUM TEMPERATURE 36.6,, blood pressure 128/91 to 171/88, pulse 89-113, respiratory rate 22-33, pulse ox 85-95%. She is currently on BiPAP 08/30. She appears to be in no acute respiratory distress. Her ins and outs since admission she is currently 9.6 L negative. In the last 24 hours she is 250 mL negative. Gen: AAOx3, NAD, tachypneic, appears to be at baseline Lungs: CTA on anterior chest wall, bibasilar crackles Abd; soft/NT/ND/BS+ Ext: bilateral clubbing, no cyanosis, no edema Lab reviewed. Na 134, K 3.4, Cl 93, Cr 0.71, glucose 113, calcium 9 WBC 19 Hgb 10, Plt 269 CRP 2.78 Angiotensin-converting enzyme-pending Rheumatoid factor- <10 CCP IgG G <0.4 ANCA--pending [employer]--pending C. difficile toxin 06/19/2017: No C. difficile toxin detected Urine culture 06/14/2017: Proteus mirabilis Blood culture from 06/03/2017: No growth Blood culture 05/23/2017: Micrococcus species in only 1 of 2 cultures Pulmonary function studies 12/25/2013 Spirometry: Moderately severe obstructive ventilatory disease Bronchodilator: No significant response Lung volumes: Within normal limits Diffusion: Moderately reduced at 41% corrects to 78% off alveolar volume Radiology: CT chest without contrast 06/17/2017: Advanced emphysema with diffuse interstitial thickening. Progression of diffuse groundglass airspace opacities. This could represent atypical pneumonitis versus superimposed pulmonary edema. 06/06/2017 chest x-ray IMPRESSION: 1. Extensive opacities most concerning for superimposed edema or infection on chronic lung disease/emphysema. Chest x-ray 05/30/2017, diffuse interstitial thickening bilaterally CTA 04/17/2017: Diffuse interstitial lung changes, emphysema, no classic honeycomb fibrosis or cylindrical bronchiectasis CTA 12/18/2013: Diffuse emphysema some diffuse ground-glass changes with mediastinal lymphadenopathy Medications reviewed and listed below Assessment & Plan 61-year-old female with acute on chronic respiratory insufficiency/failure: She was recently upgraded to medical ICU for worsening shortness of breath and hypoxia. She had a repeat CAT scan of chest done which showed advanced emphysematous changes with diffuse interstitial thickening and flutter unchanged from previous imaging. However there was progression of diffuse ground glass opacifications. 4 interstitial lung disease or rheumatological workup was sent. Results are still pending. She was started on high flow nasal cannula with intermittent BiPAP with some improvement of her symptoms as well as started on high doses of steroids and vancomycin and Zosyn for possible healthcare acquired pneumonia. COPD Pulmonary fibrosis Right ventricular heart failure secondary Acute on chronic hypoxic respiratory failure Hyponatremia Hypokalemia Continue with alternating-high flow nasal cannula and BiPAP. maintain SaO2>92%. Continue with Atrovent and Xopenex nebulizer Continue with chest PT Continue with Solu-Medrol 125 mg every 6 hours Continue with pantoprazole. Hyponatremia--most likely due to diuretics, continue as tolerated Her overall prognosis is poor and she appears to have end stage lung disease and is declining. I discussed case with hospitalist covering the case, Dr. Jason Narvaez. Patient was made DNR on my last discussion with Charlie, however has rescinded this decision at the current time. She remains a full code with no mechanical ventilation. Data Medications: Current Inpatient Medications Medications (Trade) Dose Ordered Sig/Bishnu Route Start Time Stop Time Status Last Admin Dose Admin Acetaminophen (Tylenol Tab) 650 mg Q4H PRN PO 05/23/17 17:45 06/22/17 17:44 06/18/17 10:46 650 MG Ondansetron HCl (Zofran Inj) 4 mg Q6H PRN IV 05/23/17 17:45 06/22/17 17:44 06/18/17 12:20 4 MG Polyethylene (Miralax Powder Packet) 17 gm DAILY PRN PO 05/23/17 17:45 06/22/17 17:44 Potassium Chloride (Klor-Con Tab) 20 meq BID PO 05/23/17 21:00 06/22/17 20:59 Future Hold 06/08/17 08:16 20 MEQ Aspirin (Ecotrin Tab) 81 mg DAILY PO 05/24/17 09:00 06/23/17 08:59 06/19/17 08:02 81 MG Calcium/Vitamin D (Caltrate Plus Tab) 1 tab BID PO 05/23/17 21:00 06/22/17 20:59 06/19/17 08:02 1 TAB Metoprolol Tartrate (Lopressor Tab) 25 mg BID PO 05/23/17 21:00 06/22/17 20:59 06/19/17 08:02 25 MG Nortriptyline HCl (Pamelor Cap) 25 mg QAM PO 05/24/17 09:00 06/23/17 08:59 06/19/17 08:02 25 MG Rosuvastatin Calcium (Crestor Tab) 20 mg QPM PO 05/23/17 21:00 06/22/17 20:59 06/18/17 20:12 20 MG Sodium Chloride ([place] Nasal [place]) 2 sprays BID NA 05/23/17 21:00 06/22/17 20:59 06/19/17 08:01 2 SPRAYS Sertraline HCl (Zoloft Tab) 100 mg HS PO 05/23/17 21:00 06/22/17 20:59 06/18/17 20:12 100 MG Miscellaneous Information (Order Awaiting Action) 1 ea QS N/A 05/24/17 00:00 06/23/17 00:00 Non-Formulary Medication (Non-Formulary Patient'S Own Med) 1 ea HS PO 05/24/17 21:00 06/23/17 20:59 06/18/17 20:12 1 EA Ipratropium [place] (Atrovent 0.02% 0.5MG/2.5ML Neb) 0.5 mg Q4R INH 06/06/17 05:00 06/22/17 04:59 06/19/17 07:02 0.5 MG Levalbuterol (Xopenex 1.25MG/ 0.5ML Neb) 1.25 mg Q4R INH 06/06/17 05:00 06/22/17 04:59 06/19/17 07:02 1.25 MG Methylprednisolone Sodium Succinate 125 mg/Syringe 2 ml @ 1.5 mls/min Q6 IV 06/17/17 00:00 07/16/17 19:59 06/19/17 11:44 1.5 MLS/MIN Heparin Sodium (Porcine) (Heparin Sq 5000 Unit/0.5ml) 5,000 unit Q12 SQ 06/16/17 21:00 07/16/17 20:59 06/19/17 08:05 5,000 UNIT Vancomycin HCl (Consult) 1 ea UD PRN N/A 06/16/17 20:00 07/16/17 19:59 Piperacillin Sod/ Tazobactam Sod (Consult) 1 ea UD PRN N/A 06/16/17 20:00 07/16/17 19:59 Piperacillin Sod/ Tazobactam Sod 3.375 gm/Dextrose 115 ml @ 28.75 mls/ hr Q8H IV 06/17/17 02:00 06/23/17 01:59 06/19/17 09:05 28.75 MLS/HR Pantoprazole Sodium (Protonix Tab) 40 mg BID PO 06/17/17 21:00 07/17/17 20:59 06/19/17 08:03 40 MG Furosemide (Lasix Tab) 40 mg QAM PO 06/18/17 09:00 07/18/17 08:59 06/19/17 08:02 40 MG Bisacodyl (Dulcolax Supp) 10 mg DAILY PRN [place] 06/17/17 10:00 07/17/17 09:59 06/17/17 11:41 10 MG Vancomycin HCl 1000 mg/Sodium Chloride 270 ml @ 125 mls/hr Q10H IV 06/18/17 20:00 06/23/17 19:59 06/19/17 06:13 125 MLS/HR Ipratropium [place] (Atrovent 0.02% 0.5MG/2.5ML Neb) 0.5 mg Q2H PRN INH 06/19/17 10:30 07/19/17 10:29 Levalbuterol (Xopenex 1.25MG/ 0.5ML Neb) 1.25 mg Q2H PRN INH 06/19/17 10:30 07/19/17 10:29 Vital Signs: Date Time Temp Pulse Resp B/P (MAP) Pulse Ox O2 Delivery O2 Flow Rate FiO2 06/19/17 12:08 36.0 113 33 128/91 (103) High Flow Oxygen 15.0 06/19/17 11:29 111 100 06/19/17 10:46 98 29 95 BiPAP/CPAP 100 06/19/17 07:22 36.6 91 24 171/88 (115) 85 BiPAP 06/19/17 07:05 89 94 06/19/17 07:04 89 25 94 BiPAP/CPAP 100 06/19/17 04:00 99 20 Nasal Cannula 55.0 100 06/19/17 04:00 BiPAP 100 06/19/17 03:48 36.5 95 26 153/88 (109) BiPAP 06/19/17 02:27 92 100 06/19/17 00:00 BiPAP 100 06/18/17 23:25 86 22 Nasal Cannula 55.0 100 06/18/17 23:10 36.4 88 24 142/89 (106) 06/18/17 20:00 High Flow Oxygen 55.0 06/18/17 19:45 36.5 94 20 135/85 (102) 06/18/17 19:22 90 100 06/18/17 19:18 92 27 BiPAP/CPAP 55.0 100 06/18/17 18:00 105 82 100 06/18/17 16:00 High Flow Oxygen 55.0 06/18/17 15:44 36.8 103 22 154/91 (112) 06/18/17 15:35 104 100 06/18/17 14:35 77 24 Nasal Cannula 55.0 95 Laboratory Results: Last 24 Hours Test 06/19/17 06:35 White Blood Count 19.34 K/uL Red Blood Count 3.43 M/uL Hemoglobin 10.1 g/dL Hematocrit 31.6 % Mean Corpuscular Volume 92.1 fL Mean Corpuscular Hemoglobin 29.4 pg Mean Corpuscular Hemoglobin Concent 32.0 g/dl Platelet Count 269 K/uL Mean Platelet Volume 9.6 fL Neutrophils (%) (Auto) 82.1 % Lymphocytes (%) (Auto) 8.4 % Monocytes (%) (Auto) 6.4 % Eosinophils (%) (Auto) 0.1 % Basophils (%) (Auto) 0.1 % Neutrophils # (Auto) 15.89 K/uL Lymphocytes # (Auto) 1.62 K/uL Monocytes # (Auto) 1.23 K/uL Eosinophils # (Auto) 0.01 K/uL Basophils # (Auto) 0.02 K/uL RDW Standard Deviation 58.7 fL RDW Coefficient of Variation 17.6 % Immature Granulocyte % (Auto) 2.9 % Immature Granulocyte # (Auto) 0.57 K/uL Erythrocyte Sedimentation Rate 41 mm/hr Sodium Level 134 mmol/L Potassium Level 3.4 mmol/L Chloride Level 93 mmol/L Carbon Dioxide Level 35 mmol/L Anion Gap 6.0 mmol/L Blood Urea Nitrogen 21 mg/dl Creatinine 0.71 mg/dl Est Creatinine Clear Calc Drug Dose 73.8 ml/min Estimated GFR () 105.8 Estimated GFR (Non- 91.3 BUN/Creatinine Ratio 29.3 Random Glucose 113 mg/dl Calcium Level 9.0 mg/dl C-Reactive Protein 2.78 mg/dl
[2017-06-19] MEDS: ONDANSETRON INJ 2 MG/ML 2 ML VIAL IV PRN (18:07)
[2017-06-19] MEDS: [UNRECOGNIZED DRUG - OTHER] PO SCH (20:25)
[2017-06-19] MEDS: ROSUVASTATIN CALCIUM 20 MG TAB PO SCH (20:26)
[2017-06-19] MEDS: SERTRALINE HCL 50 MG TAB PO SCH (20:26)
[2017-06-20] VITALS (10 sets, daily range): BP systolic 91–153; BP diastolic 59–89; PULSE 89–108; TEMP 36.4–36.5; O2SAT 87–94
[2017-06-20] MEDS: PIPERACILL/TAZOBAC IV 3.375 GM in DEXTROSE 5% 100ML IV SCH ×2 (02:21→10:07)
[2017-06-20] MEDS: VANCOMYCIN INJ 1,000 MG in SODIUM CHLORIDE 0.9% 250ML 250 ML IV SCH (02:21)
[2017-06-20] MEDS: IPRATROPIUM BROMIDE NEB SOLN 0.02% 2.5 ML VIAL INH SCH ×4 (03:19→16:19)
[2017-06-20] MEDS: LEVALBUTEROL 1.25MG/0.5ML NEB INH SCH ×4 (03:19→16:20)
[2017-06-20] MEDS: METHYLPREDNISOLONE IV 125 MG in SYRINGE 0 ML IV SCH ×2 (05:36→13:17)
[2017-06-20] MEDS: SODIUM CHLORIDE 0.65% NA SOLN 45 ML (OCEAN) SCH (07:59)
[2017-06-20] MEDS: ASPIRIN 81 MG ECTAB PO SCH (08:00)
[2017-06-20] MEDS: FUROSEMIDE 40 MG TAB PO SCH (08:01)
[2017-06-20] MEDS: METOPROLOL TARTRATE 25 MG TAB PO SCH (08:01)
[2017-06-20] MEDS: CALCIUM 600MG + VIT D 400 IU TAB PO SCH (08:01)
[2017-06-20] MEDS: NORTRIPTYLINE HCL 25 MG CAP PO SCH (08:02)
[2017-06-20] MEDS: PANTOprazole SOD 40 MG TAB PO SCH (08:03)
[2017-06-20] MEDS: HEPARIN SOD 5000 UNIT/0.5 ML CARP SQ SCH (08:04)
[2017-06-20 08:12] LABS: BASO ABS # 0.01 K/uL (0-0.2); COMPLETE YES; HEMATOCRIT 29.2 % (37-47); IG% 2.6 %; LYMPH % 5.5 %; LYMPH ABS # 1.15 K/uL (1.2-3.4); MEAN CORPUSCULAR HEMOGLOBIN 29.6 pg (25-34); MEAN CORPUSCULAR HGB CONC 31.8 g/dl (32-36); MEAN PLATELET VOLUME 9.8 fL (7.4-10.4); MONO % 3.9 %; PLATELET COUNT 245 K/uL (130-400); RED BLOOD COUNT 3.14 M/uL (4.2-5.4); WHITE BLOOD COUNT 21.02 K/uL (4.8-10.8)
[2017-06-20 08:49] LABS: CREATININE 1.1 mg/dl (0.60-1.20)
[2017-06-20 08:50] LABS: BUN/CREATININE RATIO 32.1 (10-20); CALCIUM 8.9 mg/dl (8.5-10.1); POTASSIUM 3.3 mmol/L (3.5-5.1)
--- NOTE | 2017-06-20 10:54 | Palliative Care Progress Note ---
Palliative Care Progress Note Date of Service Jun 20, 2017. Subjective Pt evaluation today including: conversation w/ family (, Rickey) -I received a voicemail from patient's , Rickey Maurer, on Monday, . He asked me to call back, which I did do. Rickey was calm when I spoke with him, but he said he had been quite upset when he realized that his was a DNR according to the POLST form. I reminded him that the POLST form was completed with he and his very thoroughly for 35 minutes by myself. He did recall, and stated that there must have been a "misunderstanding." While I was on the phone with him, Dr. Narvaez and Lynne Barrett entered patient's room to speak with Rickey and Kami. Rickey assured me he was not upset and was very appreciative of the care his is receiving. I will follow on the periphery for now. Please do not hesitate to get me re- involved if needed during this hospital stay. I will be happy to complete a new POLST form with patient and her , but I will refrain from doing so until time prior to discharge.
[2017-06-20] MEDS ORDERED: VANCOMYCIN TROUGH ONE (11:30)
--- NOTE | 2017-06-20 12:59 | Pharmacy Progress Note ---
Pharmacy Abx Dose Short Note Date of Service Jun 20, 2017. Assessment & Plan Assessment * Ms Maurer is a 61 year old female receiving Vancomycin/Zosyn for treatment of PNA * Renal fxn changed significantly since yesterday (SCr 0.71 --> 1.1), so vanc placed on hold until level could be evaluated. * Trough level at 1130: 32.1mcg/mL Plan * Will hold vancomycin for now and check level w/ am labs. * Will re-dose when appropriate based on renal function/vanc level evaluation tomorrow. Pharmacy will continue to follow and will adjust dose/frequency as necessary. Thank you.
--- NOTE | 2017-06-20 16:31 | Palliative Care Progress Note ---
Palliative Care Progress Note Date of Service Jun 20, 2017. Subjective Pt evaluation today including: conversation w/ patient, conversation w/ family , physical exam, conversation w/ proposal consultant, review of inpatient medication list Pain: 0/10 PO Intake: minimal Voiding: garcia catheter in place -Patient's , Charlie, requested to speak with me. Dr. Thao and I talked with patient, , and sister- Kaitlyn. - did most of talking and caught me up on events of the weekend. -Patient c/o SOB. Is requesting to have the bipap mask placed again. -Sister, Kaitlyn, is concerned about patient's decline. also noted the decline and knows "it's not good." Review of Systems Constitutional: + weakness Respiratory: + cough, + shortness of breath, + dyspnea at rest Cardiac: No chest pain, No edema Abdomen: No pain, No nausea, No vomiting Female : No problem reported Psychiatric: + anxiety (when the SOB worsens) Objective Vital Signs Date Time Temp Pulse Resp B/P (MAP) Pulse Ox O2 Delivery O2 Flow Rate FiO2 06/20/17 15:17 36.4 108 28 91/59 (70) High Flow Oxygen 100 06/20/17 12:49 BiPAP 100 06/20/17 12:23 100 25 93/71 (78) 06/20/17 12:00 BiPAP 100 06/20/17 11:22 98 24 87 BiPAP/CPAP 100 06/20/17 11:22 98 87 100 06/20/17 09:35 BiPAP 100 06/20/17 08:00 BiPAP 100 06/20/17 07:54 36.5 99 26 153/89 (110) BiPAP 06/20/17 07:11 92 88 100 06/20/17 07:11 92 24 88 BiPAP/CPAP 100 06/20/17 05:20 94 90 100 06/20/17 04:00 BiPAP 100 06/20/17 03:20 92 22 BiPAP/CPAP 100 06/20/17 03:00 36.5 99 22 134/81 (98) 06/20/17 01:31 89 94 100 06/20/17 00:00 BiPAP 100 06/19/17 23:52 36.8 99 22 139/79 (99) 06/19/17 23:10 102 24 BiPAP/CPAP 100 06/19/17 21:58 104 91 100 06/19/17 20:15 BiPAP 1.0 100 06/19/17 19:52 36.8 102 22 140/82 (101) 06/19/17 18:58 107 92 100 06/19/17 18:56 107 24 BiPAP/CPAP 100 06/19/17 16:28 36.1 99 25 144/81 (102) Physical Exam General Appearance: + pertinent finding (chronically ill-appearing) ENT: hearing grossly normal Neck: supple, no JVD Respiratory/Chest: + accessory muscle use, + pertinent finding (dyspnea noted) Cardiovascular: + tachycardia Extremities: + pertinent finding (deformities at baseline) Neurologic/Psychiatric: alert, normal mood/affect, oriented x 3 Skin: + pallor Laboratory Results Last 24 Hours Test 06/20/17 07:45 06/20/17 11:34 White Blood Count 21.02 K/uL Red Blood Count 3.14 M/uL Hemoglobin 9.3 g/dL Hematocrit 29.2 % Mean Corpuscular Volume 93.0 fL Mean Corpuscular Hemoglobin 29.6 pg Mean Corpuscular Hemoglobin Concent 31.8 g/dl Platelet Count 245 K/uL Mean Platelet Volume 9.8 fL Neutrophils (%) (Auto) 88.0 % Lymphocytes (%) (Auto) 5.5 % Monocytes (%) (Auto) 3.9 % Eosinophils (%) (Auto) 0.0 % Basophils (%) (Auto) 0.0 % Neutrophils # (Auto) 18.49 K/uL Lymphocytes # (Auto) 1.15 K/uL Monocytes # (Auto) 0.83 K/uL Eosinophils # (Auto) 0.00 K/uL Basophils # (Auto) 0.01 K/uL RDW Standard Deviation 59.6 fL RDW Coefficient of Variation 17.8 % Immature Granulocyte % (Auto) 2.6 % Immature Granulocyte # (Auto) 0.54 K/uL Nucleated RBC Absolute Count (auto) 0.12 K/uL Nucleated Red Blood Cells % 0.6 % Sodium Level 138 mmol/L Potassium Level 3.3 mmol/L Chloride Level 99 mmol/L Carbon Dioxide Level 30 mmol/L Anion Gap 9.0 mmol/L Blood Urea Nitrogen 35 mg/dl Creatinine 1.10 mg/dl Est Creatinine Clear Calc Drug Dose 48.1 ml/min Estimated GFR () 62.3 Estimated GFR (Non- 53.8 BUN/Creatinine Ratio 32.1 Random Glucose 122 mg/dl Calcium Level 8.9 mg/dl Vancomycin Level Trough 32.1 mcg/ml Assessment and Plan Problem list: VINCENT/SOB Respiratory failure CHF COPD and pulmonary fibrosis, advanced/end-stage Weakness, generalized Right-sided heart failure- chronic Goals of care (Z51.5) Palliative care recs: -Patient's condition overall is worsening. I was marly about this with the and sister. -, Charlie, pulled me aside and asked again about hospice care on the fourth floor. I was honest and stated that hospice care is done with the goal of patient passing away peacefully. He stated, "Well I guess we're just not ready for that; but I understand that it's not an 'if' but a 'when'." -I explained to them all that patient cannot leave the hospital as long as she is requiring bipap and high-flow nasal cannula. In fact, I do not foresee the patient leaving the hospital at all. -I discussed using Roxanol for SOB/air hunger. Patient has morphine allergy, but it was hallucination/confusion after she received 4mg IV push at one time. I would still recommend a trial of 2.5mg PO Q3h PRN. I spoke with Dr. Narvaez about this, and he will check with patient and when he rounds. -Could also consider lorazepam 0.5mg IV Q4h PRN anxiety. -Patient is currently a level 3 resuscitation, meaning she wants chest compressions and meds, but no intubation. This needs readdressed delicately. I am meeting again with patient, , and sister tomorrow at 1400. I will continue to follow throughout hospitalization. Please don't hesitate to contact me with any palliative needs. Palliative Performance Scale: 20 % Continued [facility] stay due to: multiple IV medications needed, home environment unsafe for pt Discharge planning: [facility] facility
--- NOTE | 2017-06-20 18:58 | Progress Note ---
Medicine Progress Note Date & Time of Visit: Jun 20, 2017 at 18:58. Subjective delayed entry patient seen in the AM, with patient's sister in law at the bedside and RT Serafin Mcwilliams at the bedside seen wearing Bipap mask states she feels ok overall, asking if she can take off the Bipap mask when she' s eating denies dyspnea when wearing the bipap mask has dry cough, no chest pain denies other symptoms Objective Last 8 Hrs Date Time Temp Pulse Resp B/P (MAP) Pulse Ox O2 Delivery O2 Flow Rate FiO2 06/20/17 17:00 BiPAP 100 06/20/17 16:20 102 22 87 BiPAP/CPAP 100 06/20/17 15:17 36.4 108 28 91/59 (70) High Flow Oxygen 100 06/20/17 12:49 BiPAP 100 06/20/17 12:23 100 25 93/71 (78) 06/20/17 12:00 BiPAP 100 06/20/17 11:22 98 24 87 BiPAP/CPAP 100 06/20/17 11:22 98 87 100 Physical Exam: General- oriented x 3, not in distress, speaks in sentences with no effort with Bipap mask on Neck- no JVD Lungs- clear breath sounds bilaterally, no rales/wheezes Heart- normal rate, regular rhythm; no murmurs Abdomen- non distended,normal bowel sounds, soft, nontender Extremities- no pretibial edema, no calf tenderness Neuro- alert, oriented x 3; no gross deficits Skin- warm & dry Laboratory Results: Last 24 Hours Test 06/20/17 07:45 06/20/17 11:34 06/20/17 18:29 White Blood Count 21.02 K/uL Red Blood Count 3.14 M/uL Hemoglobin 9.3 g/dL Hematocrit 29.2 % Mean Corpuscular Volume 93.0 fL Mean Corpuscular Hemoglobin 29.6 pg Mean Corpuscular Hemoglobin Concent 31.8 g/dl Platelet Count 245 K/uL Mean Platelet Volume 9.8 fL Neutrophils (%) (Auto) 88.0 % Lymphocytes (%) (Auto) 5.5 % Monocytes (%) (Auto) 3.9 % Eosinophils (%) (Auto) 0.0 % Basophils (%) (Auto) 0.0 % Neutrophils # (Auto) 18.49 K/uL Lymphocytes # (Auto) 1.15 K/uL Monocytes # (Auto) 0.83 K/uL Eosinophils # (Auto) 0.00 K/uL Basophils # (Auto) 0.01 K/uL RDW Standard Deviation 59.6 fL RDW Coefficient of Variation 17.8 % Immature Granulocyte % (Auto) 2.6 % Immature Granulocyte # (Auto) 0.54 K/uL Nucleated RBC Absolute Count (auto) 0.12 K/uL Nucleated Red Blood Cells % 0.6 % Sodium Level 138 mmol/L Potassium Level 3.3 mmol/L Chloride Level 99 mmol/L Carbon Dioxide Level 30 mmol/L Anion Gap 9.0 mmol/L Blood Urea Nitrogen 35 mg/dl Creatinine 1.10 mg/dl Est Creatinine Clear Calc Drug Dose 48.1 ml/min Estimated GFR () 62.3 Estimated GFR (Non- 53.8 BUN/Creatinine Ratio 32.1 Random Glucose 122 mg/dl Calcium Level 8.9 mg/dl Vancomycin Level Trough 32.1 mcg/ml Bedside Glucose 187 mg/dl Assessment & Plan This is a 61yo female with a PMH of chronic respiratory failure 2/2 COPD, pulmonary fibrosis (on home O2), R sided HF, HTN who presents in acute respiratory failure after home health nurse found her to be hypoxic at 57%.Was treated for health care pneumonia and finished course of abx,. Received Lasix for chf and on prednisone for ILD flare.P Acute on Chronic hypoxic respiratory failure secondary to: Acute COPD and ILD flare Possible Other Underlying Inflammatory Process -- was on Mucomyst, Nebs q4h Prednisone 40mg daily, slow taper -- 06/14 (+) increased cough, with mild tachypnea Lasix 20mg IV one dose improved clinically -- 06/16 (+) desaturation to low 70s, high 80s transferred to ICU - 06/17: oxygenation improving CT chest: IMPRESSION: Respiratory motion artifact. Advanced emphysema with diffuse interstitial thickening is again noted. There is been progression of the near diffuse groundglass airspace opacities. This could represent an atypical pneumonitis versus less likely superimposed pulmonary edema. - repeat CXR: somewhat improving - continue on Vanc + Zosyn day 5 Solumedrol 125mg q6h Nebs q4h Lasix daily alternating Bipap and high flow 02 -- discussed plan of care with patient and she is understanding /comfortable with plan of care also updated patient's and he is understanding/comfortable with plan of care Proteus UTI -- urine culture: (+) proteus -- on Zosyn Diarrhea -- resolved -- Protonix IV Hyponatremia stable will continue to monitor while on Lasix s/p Sepsis 2/2 PNA, UTI: one bottle micrococcus completed 10day abx course s/p Acute on chronic R-sided Heart Failure, Preserved Ef: secondary underlying pulmonary disease Echo (04/10) with preserved EF: 65-70% but elevated R ventricular systolic pressure initially was on iv Lasix 40mg bid then was on Lasix 80mg po daily f/u cxr- some what better -- 06/14 Lasix IV given diuresed well improved -- 06/16 (+) desaturation to low 70s, high 80s CXR, Lasix 40mg IV, nebs changed to high flow 02 -- management per #1 HTN: Stable on metoprolol Code staus level 3 - per discussion with patient and DVT PROPHYLAXIS Heparin -- monisha cooper called around 6pm rushed to the bedside, patient was unresponsive, no pulse ordered STAT CPR, place pads on Dr. Nj and ICU team arrived and performed ACLS after a few minutes, patient's Rickey asked if intubation will help the patient, Dr. Nj discussed resuscitation procedure with the patient's patient's Rickey then requested for CPR to be discontinued patient declared [id number] condolences offered to Rickey and patient's sister Jason Narvaez MD Continued [facility] stay due to: multiple IV medications needed, home environment unsafe for pt Discharge planning: senior care facility Current Inpatient Medications: Current Inpatient Medications Medications (Trade) Dose Ordered Sig/Bishnu Route Start Time Stop Time Status Last Admin Dose Admin Acetaminophen (Tylenol Tab) 650 mg Q4H PRN PO 05/23/17 17:45 06/22/17 17:44 06/18/17 10:46 650 MG Ondansetron HCl (Zofran Inj) 4 mg Q6H PRN IV 05/23/17 17:45 06/22/17 17:44 06/19/17 18:07 4 MG Polyethylene (Miralax Powder Packet) 17 gm DAILY PRN PO 05/23/17 17:45 06/22/17 17:44 Potassium Chloride (Klor-Con Tab) 20 meq BID PO 05/23/17 21:00 06/22/17 20:59 Future Hold 06/08/17 08:16 20 MEQ Aspirin (Ecotrin Tab) 81 mg DAILY PO 05/24/17 09:00 06/23/17 08:59 06/20/17 08:00 81 MG Calcium/Vitamin D (Caltrate Plus Tab) 1 tab BID PO 05/23/17 21:00 06/22/17 20:59 06/20/17 08:01 1 TAB Metoprolol Tartrate (Lopressor Tab) 25 mg BID PO 05/23/17 21:00 06/22/17 20:59 06/20/17 08:01 25 MG Nortriptyline HCl (Pamelor Cap) 25 mg QAM PO 05/24/17 09:00 06/23/17 08:59 06/20/17 08:02 25 MG Rosuvastatin Calcium (Crestor Tab) 20 mg QPM PO 05/23/17 21:00 06/22/17 20:59 06/19/17 20:26 20 MG Sodium Chloride (Tow Nasal [place]) 2 sprays BID NA 05/23/17 21:00 06/22/17 20:59 06/20/17 07:59 2 SPRAYS Sertraline HCl (Zoloft Tab) 100 mg HS PO 05/23/17 21:00 06/22/17 20:59 06/19/17 20:26 100 MG Miscellaneous Information (Order Awaiting Action) 1 ea QS N/A 05/24/17 00:00 06/23/17 00:00 Non-Formulary Medication (Non-Formulary Patient'S Own Med) 1 ea HS PO 05/24/17 21:00 06/23/17 20:59 06/19/17 20:25 1 EA Ipratropium [place] (Atrovent 0.02% 0.5MG/2.5ML Neb) 0.5 mg Q4R INH 06/06/17 05:00 06/22/17 04:59 06/20/17 16:19 0.5 MG Levalbuterol (Xopenex 1.25MG/ 0.5ML Neb) 1.25 mg Q4R INH 06/06/17 05:00 06/22/17 04:59 06/20/17 16:20 1.25 MG Methylprednisolone Sodium Succinate 125 mg/Syringe 2 ml @ 1.5 mls/min Q6 IV 06/17/17 00:00 07/16/17 19:59 06/20/17 13:17 1.5 MLS/MIN Heparin Sodium (Porcine) (Heparin Sq 5000 Unit/0.5ml) 5,000 unit Q12 SQ 06/16/17 21:00 07/16/17 20:59 06/20/17 08:04 5,000 UNIT Vancomycin HCl (Consult) 1 ea UD PRN N/A 06/16/17 20:00 07/16/17 19:59 Piperacillin Sod/ Tazobactam Sod (Consult) 1 ea UD PRN N/A 06/16/17 20:00 07/16/17 19:59 Piperacillin Sod/ Tazobactam Sod 3.375 gm/Dextrose 115 ml @ 28.75 mls/ hr Q8H IV 06/17/17 02:00 06/23/17 01:59 06/20/17 10:07 28.75 MLS/HR Pantoprazole Sodium (Protonix Tab) 40 mg BID PO 06/17/17 21:00 07/17/17 20:59 06/20/17 08:03 40 MG Furosemide (Lasix Tab) 40 mg QAM PO 06/18/17 09:00 07/18/17 08:59 06/20/17 08:01 40 MG Bisacodyl (Dulcolax Supp) 10 mg DAILY PRN [place] 06/17/17 10:00 07/17/17 09:59 06/17/17 11:41 10 MG Vancomycin HCl 1000 mg/Sodium Chloride 270 ml @ 125 mls/hr Q10H IV 06/18/17 20:00 06/23/17 19:59 Future Hold 06/20/17 02:21 125 MLS/HR Ipratropium [place] (Atrovent 0.02% 0.5MG/2.5ML Neb) 0.5 mg Q2H PRN INH 06/19/17 10:30 07/19/17 10:29 Levalbuterol (Xopenex 1.25MG/ 0.5ML Neb) 1.25 mg Q2H PRN INH 06/19/17 10:30 07/19/17 10:29
[2017-06-20] MEDS ORDERED: SODIUM CHLORIDE 0.9% 500 ML BAG IV ONE (21:29)
[2017-06-21] MEDS ORDERED: VANCOMYCIN TROUGH ONE (07:30)
--- NOTE | 2017-06-23 13:00 | Discharge Summary ---
Discharge Summary Date of Service Jun 23, 2017. Discharge Summary Admission Date: May 23, 2017 at 17:44 Discharge Date: Jun 20, 2017 Principal Diagnosis: Acute on Chronic hypoxic respiratory failure secondary to: Acute COPD Exacerbation and Interstitial Lung Disease Possible Other Underlying Inflammatory Process Secondary Diagnoses/Problems: Please refer to hospital course below. Procedures: CT CHEST, BIPAP Consultations: PULMONARY DR. TO, FLOOR CLERK DR. PINEDA, PALLIATIVE CARE Admission Information HPI (per Admitting provider): This is a 61yo female with a PMH of chronic respiratory failure 2/2 COPD, pulmonary fibrosis (on home O2), R sided HF, HTN who presents in acute respiratory failure after home health nurse found her to by hypoxic at 57%. Patient was admitted in March for [id number] RF, PNA and acutely decompensated R-sided HF. Was sent to [facility] for rehab and remained there until Monday. Since coming home, patient endorses dyspnea with any type of exertion and at rest. Has been ambulating by wheelchair only ( baseline prior to March admission was with cane) and has been saturating around 88% on 5L NC O2. Last night, patient accidently removed NC and awoke with brown/ black/green mucous crusting in nostrils. Breathing improved once helped to remove crusting and re-placed NC. This morning, patient was evaluated by a home health RN and was found to be hypoxic to 57%. While en route to ED via EMS , pulse ox reportedly dropped to 35%. Was placed on a rebreather mask and given neb treatments. In ED, O2 sat improved to 80-85% on 7L NC. Endorses chills, tenderness to frontal sinuses, drainage from nose, productive cough, dyspnea at rest. Denies fever, headache, CP, orthopnea, nausea/vomiting, urinary symptoms, LE swelling. Patient states that she has been compliant with all medications since coming home from [facility]. Has not been limiting fluid or salt intake. Follows with Dr. Dave for pulmonology. Physical Exam (per Admitting): General Appearance: + moderate distress (Patient with some respiratory distress, accessory muscle use. Chronically ill appearing. ) Head: normocephalic, atraumatic Eyes: normal inspection, sclerae normal ENT: + nasal drainage (Nares with clear/yellow drainage and dried blood), + pertinent finding (Tenderness on palpation of frontal sinuses) Neck: supple, no adenopathy, no JVD Respiratory/Chest: chest non-tender, + respiratory distress, + accessory muscle use, + crackles (Fine crackles diffusely, more at bilateral bases) Cardiovascular: no murmur, + tachycardia Abdomen/GI: normal bowel sounds, non tender, soft, no organomegaly Back: normal inspection Extremities/Musculoskelatal: no calf tenderness, no pedal edema, + swelling (1+ pitting LE edema bilaterally (chronic) ), + pertinent finding (Clubbing of LE digits ) Neurologic/Psych: no motor/sensory deficits, alert, normal mood/affect, oriented x 3 Skin: normal color, warm/dry, no rash Hospital Course This is a 61yo female with a PMH of chronic respiratory failure 2/2 COPD, pulmonary fibrosis (on home O2), R sided HF, HTN who presents in acute respiratory failure after home health nurse found her to be hypoxic at 57%.Was treated for health care pneumonia and finished course of abx,. Received Lasix for chf and on prednisone for ILD flare.P Acute on Chronic hypoxic respiratory failure secondary to: Acute COPD and ILD flare Possible Other Underlying Inflammatory Process - presented in acute respiratory failure after home health nurse found her to be hypoxic at 57%. - Treated for health care pneumonia and finished course of Vancomycin and Levaquin Placed on NRB and then transitioned to high flow Received Nebs and Mucomyst Received Lasix for chf and IV Solumedrol Patient was transitioned to Prednisone taper, but remained on High FLow o2 Palliative Care consulted, awaiting transfer to [facility] -- 06/16 (+) desaturation to low 70s, high 80s transferred to ICU after talking to shandra and her , they actually prefer patient to be Level 3, not DNR - 06/17: oxygenation improved CT chest: IMPRESSION: Respiratory motion artifact. Advanced emphysema with diffuse interstitial thickening is again noted. There is been progression of the near diffuse groundglass airspace opacities. This could represent an atypical pneumonitis versus less likely superimposed pulmonary edema. improved, transferred to Tele repeat CXR: somewhat improving - 06/20: was continued on Vanc + Zosyn day 5 Solumedrol 125mg q6h Nebs q4h Lasix daily alternating Bipap and high flow 02 -- monisha cooper called around 6pm rushed to the bedside, patient was unresponsive, no pulse ordered STAT CPR, place pads on, Ambu bag Dr. Nj and ICU team arrived and performed ACLS after a few minutes, patient's Rickey asked if intubation will help the patient, Dr. Nj discussed resuscitation procedure with the patient's patient's Rickey then requested for CPR to be discontinued patient declared [id number] condolences offered to Rickey and patient's sister Proteus UTI -- urine culture: (+) proteus - was on Zosyn Diarrhea -- resolved -- Protonix IV Hyponatremia monitored while on Lasix s/p Sepsis 2/2 PNA, UTI: one bottle micrococcus completed 10day abx course s/p Acute on chronic R-sided Heart Failure, Preserved Ef: secondary underlying pulmonary disease Echo (04/10) with preserved EF: 65-70% but elevated R ventricular systolic pressure initially was on iv Lasix 40mg bid then was on Lasix 80mg po daily f/u cxr- some what better -- 06/14 Lasix IV given diuresed well improved -- 06/16 (+) desaturation to low 70s, high 80s CXR, Lasix 40mg IV, nebs changed to high flow 02 -- further management per #1 HTN: Stable on metoprolol Code staus level 3 - per discussion with patient and DVT PROPHYLAXIS Heparin Jason Narvaez MD Total time spent on discharge = 60 minutes This includes examination of the patient, discharge planning, medication reconciliation, and communication with other providers. Discharge Instructions Patient has .
== END 2017-06-20 21:30 | disposition expired | DRG 871 ==
LOC: EDBD 12:38 → C.EDB 12:39 → EDBEDREQ 16:12 → ENRESERV 16:59 → CANRESERV 16:59 → C.2E 17:44 → CANBEDREQ 17:45 → ENRESERV 17:50 → EDBEDREQSVC 06-08 09:57 → ENRESERV 06-08 09:59 → C.MS2W 06-08 10:37 → EDBEDREQ 06-16 16:55 → CANRESERV 06-16 17:08 → CANBEDREQ 06-16 17:08 → C.MSICU 06-16 17:10 → CANRESERV 06-16 17:22 → ENRESERV 06-16 17:22 → C.2E 06-18 12:55
PROVIDERS: ADMIT Hospitalist; ATTEND Internal Medicine
DX: A41.9 Sepsis, unspecified organism (principal); J96.21 Acute and chronic respiratory failure with hypoxia; J18.9 Pneumonia, unspecified organism; N39.0 Urinary tract infection, site not specified; J44.0 Chronic obstructive pulmonary disease with (acute) lower respiratory infection; E87.1 Hypo-osmolality and hyponatremia; J44.1 Chronic obstructive pulmonary disease with (acute) exacerbation; Z51.5 Encounter for palliative care; J84.10 Pulmonary fibrosis, unspecified; E78.5 Hyperlipidemia, unspecified; I11.0 Hypertensive heart disease with heart failure; I50.9 Heart failure, unspecified; R19.7 Diarrhea, unspecified; E87.6 Hypokalemia; B96.4 Proteus (mirabilis) (morganii) as the cause of diseases classified elsewhere; Z66 Do not resuscitate; Z79.52 Long term (current) use of systemic steroids; Z79.82 Long term (current) use of aspirin; Z79.899 Other long term (current) drug therapy; Z99.81 Dependence on supplemental oxygen; Z86.73 Personal history of transient ischemic attack (TIA), and cerebral infarction without residual deficits; Z87.891 Personal history of nicotine dependence